=== PATIENT | male | born 1970 | race Caucasian/White ===

== ENCOUNTER 2023-06-24 13:12 | Outpatient (OUT) | payer OTHER, SELFPAY | END 2023-06-24 13:13 | disposition home or self-care (01) | LOC: PST 13:12 | PROVIDERS: PCP Internal Medicine; Visit Provider Surgery | DX: Z01.818 Encounter for other preprocedural examination (principal); Z12.11 Encounter for screening for malignant neoplasm of colon ==

== ENCOUNTER 2023-07-01 07:40 | Day surgery (SDC) | payer OTHER, SELFPAY ==
[2023-07-01 08:07] VITALS: BP 134/94; PULSE 84; RESP 16; TEMP 36.9; O2SAT 96; BMI 23.3
[2023-07-01] MEDS: LACTATED RINGER'S SOLUTION 1,000 ML 50 ML IV (08:18)
--- NOTE | 2023-07-01 08:43 | PM.GSPRC ---
Date of procedure: 07/01/23 Indications for Procedure: screening for cancer Pre-op diagnosis: screening for cancer Post-op diagnosis: other (colon polyp 5 mm sigmoid colon) Procedure: colonoscopy with hot snare colon polyp 5 mm sigmoid colon Findings: colon polyp Anesthesia: MAC Surgeon: Jacoby Gallego Procedure Summary: PROCEDURE: The patient was taken to the Endoscopy Suite, placed in the left lateral recumbent position, given IV sedation as above. A rectal digital exam was performed. The sphincter tone was found to be normal. No rectal masses were appreciated. prosttate was smooth nonenlarged without nodules.The Olympus video colonoscope was advanced under direct visualization to the rectum, sigmoid colon, descending colon, transverse colon and ascending colon to the ileocecal valve. The underside of the valve was seen. appendiceal lumen was visualized. The scope was slowly withdrawn with air being desufflated as it was withdrawn. No gross tumors or diverticula were seen.there was a small polyp in the sigmoid colon which was hot snared and retrieved. Prep was good. The patient tolerated the procedure well and went to the Recovery Area in satisfactory condition. recommend patient have surveillance colonoscopy in five years depending on pathology. I also recommend patient use a bulk laxative on a regular basis [id number]. Estimated blood loss (mL): 1 Specimens: sigmoid colon polyp Complications: No Condition: stable Disposition: PACU
[2023-07-01 11:21] VITALS: BP 114/65; PULSE 70; RESP 17; TEMP 36.7; O2SAT 99
[2023-07-01 11:35] VITALS: BP 116/80; PULSE 72; RESP 16; O2SAT 99
[2023-07-01 11:52] VITALS: BP 144/91; PULSE 78; RESP 16; O2SAT 97
== END 2023-07-01 11:52 | disposition home or self-care (01) ==
PROVIDERS: PCP Internal Medicine; Visit Provider Surgery
PROC: (CPT 45385; principal; 2023-07-01 09:00)
DX: Z12.11 Encounter for screening for malignant neoplasm of colon (principal); D12.5 Benign neoplasm of sigmoid colon; N52.9 Male erectile dysfunction, unspecified; M54.50 Low back pain, unspecified; M54.2 Cervicalgia; K58.2 Mixed irritable bowel syndrome; J45.40 Moderate persistent asthma, uncomplicated; I10 Essential (primary) hypertension; Z87.442 Personal history of urinary calculi; F41.8 Other specified anxiety disorders; F32.A Depression, unspecified
CPT/HCPCS: 45385; 88305; J2704

== ENCOUNTER 2023-09-04 15:31 | Outpatient (OUT) | payer OTHER, SELFPAY ==
[2023-09-04 16:07] LABS: Basophils Absolute Auto 0.1 10^3/uL (0.0-0.1); Basophils Percent Auto 1.1 % (0.2-2.0); Eosinophils Absolute Auto 0.4 10^3/uL (0.0-0.7); Eosinophils Percent Auto 5.2 % (0.9-7.0); Hematocrit 49.1 % (42.0-54.0); Immature Granulocytes Abs Auto 0.02 10^3/uL (0.00-0.03); Immature Granulocytes Pct Auto 0.2 % (0.0-0.5); Lymphocytes Absolute Auto 3.6 10^3/uL (1.2-3.8); Lymphocytes Percent Auto 44.6 % (20.5-60.0); Mean Corpuscular HGB Conc 34.6 g/dL (29.9-35.2); Mean Corpuscular Hemoglobin 32.9 pg (25.9-34.0); Mean Corpuscular Volume 95.2 fL (80.0-94.0); Mean Platelet Volume 9.8 fL (9.5-13.5); Monocytes Absolute Auto 0.6 10^3/uL (0.3-0.8); Monocytes Percent Auto 6.9 % (1.7-12.0); Neutrophils Absolute Auto 3.4 10^3/uL (1.4-6.5); Platelet Count 374 10^3/uL (150-450); Red Blood Count 5.16 10^6/uL (4.70-6.10); Red Cell Distribution Width 11.6 % (11.0-15.0); White Blood Count 8.1 10^3/uL (4.0-11.0)
[2023-09-04 16:20] LABS: Alanine Aminotransferase 26 U/L (16-63); Albumin Globulin Ratio 1.2; Albumin Level 3.8 g/dL (3.4-5.0); Alkaline Phosphatase 77 U/L (46-116); Anion Gap 11.2; Aspartate Amino Transferase 16 U/L (15-37); BUN Creatinine Ratio 18.1; Bilirubin Total 0.3 mg/dL (0.2-1.0); Calcium 9.4 mg/dL (8.5-10.1); Carbon Dioxide 28.8 mmol/L (21.0-32.0); Chloride 107 mmol/L (98-107); Estimated GFR (African America >60 (>=60); Estimated GFR (Non-African Ame 59 (>=60); Globulin 3.3 g/dL; Glucose 99 mg/dL (74-106); Sodium 143 mmol/L (136-145); Total Protein 7.1 g/dL (6.4-8.2); Troponin I High Sensitivity 5.4 pg/mL (4.0-76.1)
== END 2023-09-04 15:32 | disposition home or self-care (01) ==
PROVIDERS: PCP Internal Medicine; Visit Provider Internal Medicine
DX: R00.2 Palpitations (principal); I10 Essential (primary) hypertension; R07.89 Other chest pain
CPT/HCPCS: 36415; 80053; 83880; 84443; 84484; 85025

== ENCOUNTER 2023-09-10 09:13 | Outpatient (OUT) | payer OTHER, SELFPAY ==
--- NOTE | 2023-09-10 | ECG_ITS ---
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
--- OUTSIDE RECORDS SUMMARY | 2023-09-10 09:16 | XMS_ITS | CCD ---
Author Name Unknown Address [address] [place] [address] Organization [facility] Care Team Providers Care Oxidized Finish Plater Name Role Phone LESLY ZUNIGA Primary Care Physician TIM WEAVER Admitting Unavailable TIM WEAVER Attending Unavailable SHAIKH Nenita GRANT Primary Care Unavailable TIM WEAVER Consulting Unavailable HERSON MAGANA Consulting Unavailable ARIAS ., DR DURANT Admitting Unavailable ARIAS ., DR DURANT Attending Unavailable SHAIKH Nenita GRANT Primary Care Unavailable ARIAS ., DR DURANT Consulting Unavailable NAYE SIMMONS Consulting Unavailable CATARINO II, KURTIS Consulting Unavailable LISA BECKHAM Primary Care Physician [phone] Delfino ARIAS Attending Unavailable LESLY ZUNIGA Attending Unavailable ESTELITA, Delfino Nation Attending Unavailable ESTELITA, Delfino Nation Attending Unavailable ESTELITA, Delfino Nation Admitting Unavailable ARIAS, Delfino Nation Attending Unavailable ARIAS, Delfino Nation Attending Unavailable ARIAS, Delfino Nation Attending Unavailable Allergies Allergy Classification Reported Allergen(s) Allergy Type Date of Onset Reaction(s) Facility (1 source) No Known Medication Allergies; Translations: [No Known Medication Allergies] Propensity to adverse reactions (disorder) [facility] Repository Medications Current Medications Medication Drug Class(es) Dates Sig (Normalized) Sig (Original) docusate sodium 100 mg oral capsule (3 sources) Start: 02-22-2021 take 1 capsule by mouth twice daily as needed for constipation Colace 100 mg Cap 100 mg = 1 cap(s), Oral, BID, PRN for constipation, # 20 cap(s), Refills(s) 0 Start Date: 02/22/21 Status: Ordered Ventolin HFA 90 mcg/inh Aerosol (3 sources) Start: 02-22-2021 Ventolin HFA 90 mcg/inh Aerosol Refill(s) 0 Start Date: 02/22/21 Status: Ordered zolpidem tartrate 10 mg oral tablet (3 sources) gamma-Aminobutyri c Acid-ergic Agonist Start: 02-22-2021 take 1 tablet by mouth once daily at bedtime as needed for sleep zolpidem 10 mg oral tablet 10 mg = 1 tab(s), Oral, Once a day (at bedtime), PRN for sleep, Refills(s) 0 Start Date: 02/22/21 Status: Ordered Problems Problem Classification Problem Date Documented Da te Episodic/Chronic Abdominal pain (3 sources) Unspecified abdominal pain; Translations: [UNSPECIFIED ABDOMINAL PAIN] Onset: 11-16-2022 Episodic Anxiety disorders (4 sources) Anxiety; Translations: [Anxiety disorder, unspecified] Onset: 11-24-2022 02-21-2021 Chronic Asthma (4 sources) Asthma; Translations: [Unspecified asthma, uncomplicated] Onset: 11-24-2022 02-21-2021 Chronic Calculus of urinary tract (8 sources) History of calculus of kidney; Translations: [Ureteric stone] Onset: 11-18-2022 05-13-2021 Episodic Essential hypertension (4 sources) Hypertensive disorder; Translations: [Essential (primary) hypertension] Onset: 11-24-2022 02-21-2021 Chronic Genitourinary symptoms and ill-defined conditions (1 source) Blood in urine; Translations: [Gross hematuria] Onset: 11-26-2022 Episodic Hyperplasia of prostate (5 sources) Benign prostatic hypertrophy with outflow obstruction; Translations: [Benign prostatic hyperplasia with lower urinary tract symptoms] Onset: 11-19-2022 Chronic Mood disorders (3 sources) Depressive disorder 02-21-2021 Chronic Mood disorders (1 source) Mood disorders; Translations: [DEPRESSION UNSPECIFIED] Onset: 11-24-2022 Other aftercare (1 source) Other shelter (current) drug therapy; Translations: [OTH NURSE ANESTHESIA PROGRAM DIRECTOR CURRENT DRUG THERAPY] Onset: 11-24-2022 Episodic Other diseases of kidney and ureters (1 source) Urinary tract obstruction; Translations: [Hydronephrosis with renal and ureteral calculous obstruction] Onset: 11-19-2022 Episodic Other diseases of kidney and ureters (3 sources) Hydronephrosis 11-19-2022 Episodic Other diseases of kidney and ureters (4 sources) Hydronephrosis with renal and ureteral calculous obstruction; Translations: [HYDRONPHROS RENL AND URETRL CALCUL OBST] Onset: 11-20-2022 Episodic Other gastrointestinal disorders (3 sources) Constipation 02-21-2021 Episodic Other male genital disorders (3 sources) Impotence 02-21-2021 Chronic Other male genital disorders (3 sources) 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 Other male genital disorders (1 source) Male erectile dysfunction, unspecified; Translations: [MALE ERECTILE DYSFUNCTION UNS] Onset: 11-24-2022 Chronic Other male genital disorders (1 source) Induration penis plastica; Translations: [INDURATION PENIS PLASTICA] Onset: 11-24-2022 Chronic Residual codes; unclassified (3 sources) Insomnia 02-21-2021 Episodic Residual codes; unclassified (1 source) Insomnia, unspecified; Translations: [INSOMNIA UNSPECIFIED] Onset: 11-24-2022 Episodic Results Test Name Value Interpretation Reference Range Facility Operative Reporton Operative Report [id number] #1.00CD:[address] [facility] Coding Summary.on 12-04-2022 Coding Summary. CD:[id number] Ww+PGhlYWQ+WV7FALFoT 01xmOLcpU1nM9SOGCvCQ ywgQVBQTElOSyIgbmFtZ F4wzNBlPIKq IC8+UA8mXBIhHjfiiEYs a3B0hMT4M03eex7nPZwj jJN4FKZgPeBaxwuiq2aj wCx4BOpvHpqtGeXt PJQbaA63SXM4tC87Ao43 iIHwhIGpx2hxkWc6LwLb STMcGQY7hGvcVRurx6Vh OQEsG98ycXHbb2Y3 IGNvbGxhcHNlOyBlbXB0 wP8mIXpqddvcb3xnqaqt Pry0nc53bRUtm5T0dQB5 I6SujuR9DRJegBXg FdqtfBGQvU1bmnznm4ca byznMnCcSOMwXBq2GCt7 GBBbjQzuPgKeNG78RCZ5 BTZeeiLfB8WlMITa aPihGeW6j9H5Vg6DF5RJ XfanQ4RYTQHTIUmqhSR+ XD64qe88Q7KeKjsmApd5 WMGqDIK9xVS5sP5j TGDiGDapa9J7bVM9T3Xr omMgem2iz8zhJKOhFWmv S60fqTKxg2J8GJXxuKD3 WZVlpSzaTbUvtW80 Oyc+MFToeWplr5KkWicj h5vel2rfbVr3LtkbFGBm osMejAhkZTS4p2KfMh4g VJIabBM0rML6bQ6s QfQwBkA7GTccK634VtXh jYMmAapzG29hQ6GvlZQ+ OKYgFym9YUQsgPsaBY5n X8OhSFCkiiusdRDb vUfjXL4uHIBgzkarPGVo rU8eCACzE8e3ZePvVlC9 LPiuH2FnUSDohlqeTh53 mO1zOuXmApH6RBxw X8RitqD7ALZsmNKcQFvn JJT3W14sg4P2ZNIzRISt KQF0jPA1bW5nwQbzlckx bGVmdDsgdmVydGlj ICqqUMcuC729MBMqxRci PkNvZGluZyBEYXRlOiAg MDMvMjMvMjAyMzwvdGQ+ RPPdQRH6nMdaPEAv tADdLLjjKb6mvQqcfWwq QZ5fHXOmreghGOHqtP6d OZDfdOMksFizBK3mDIGu gjpof915CbYeSYI0 IYYwyHEtI4LwaP4hTaKx JDTiNWRgK2OpyQPaCAud J406SIbgWxQ0ZRDwglLr X1GzRIRbmBzpKaJ9 y2C6Rn5Ik4GykhsrR0Zr aRIrRiIiXdvjCAx2Y8Xg PjwvdHI+FR95RIVxVZ19 YEp8XHN7wYtjSHxs WWMiJ4PozI3gEmNeXKTt ZGRkOyc+PHRhYmxlIHdp ZHRoPScxMDAlJyBzdHls RE5xYu5iAOMuHODy lSoqoBFwSuLxx9htUNNf TVnsZW8vvVhgW5CkmFG8 EQKfc5k7Lv12Y66sQ5Gp dXA+JWXvlKR7nZU1 tN0cBeGbNhE1TWbsE706 UwSywYFkApkxb7cph1bs nPx4YcC1MDJtuoPzoQmy DZJ6d3LwPg32R66m IHdpZHRoPSIxNSUiIHZh mXqydj3ouM8pKc1+PGNv yOT2xJK9wC2mWgJmIhW6 UJiwF941FyCnoTQw Yscle6xnp3mrgCk3LoLe ORVncaMvnWirFDO0k4Fj Wn70O2UryKlmr6DvDmj1 ff46wILcz2P5kAX5 X5MiSQOznqhdkBTbvQdv CE3mLHNajdklOOJyxF0c VRThN0g3TcIyPsK7WCfb F8GkclS0SPMqwZPo PKNoiJVVdL5dennwe8yc bkldOgZeUIHgCYw1ILc1 EWOzvAuhLtVuKYU4JsG7 JBC4oSHkfU4tcKlo qgcmiT3eGet+DYU2mFQq xKGGQY9uRyswaGH+PHRk FJX9hIshBEqmKJMzbA8p CECcG2n6QcSeAbI0 JAikT2CspmU5RNUxyEEp CZIviZNHrU5kondwv1tr kjonXyWkOVSgPRe4UMa0 LWFsaWduOiBsZWZ0 PoI9ICC2tYHurS6lmDvf kdglwO8iFhy+QmlydGgg VGI3EZe2N1XqXry1MEJc qYlzDD7iwOJzTWjm Hb5smZinkUwzMZ6kKHXc yedmh935NaVwd1ifMJYr aYPkIBhgKKA3J03ly7N3 WACuGWSmQPU1wRQ2 xZ4mxEgehfchkXHpsGko djBycJnkIZfaHNdsS301 BTRkcNeyJhIcMXj4J1Hd Jyr5CAHzsJnsRJ6n yUIlMFrcZi0usNwhhKhy AG1tCWXlnzreh507OcKd w0rvFGJkvJFiFRxiNIA4 E10uh7J9HVYmBLOe LVS2hME9zB7xgTbrshwn bGVmdDsgdmVydGljYWwt BTwrP927GGPpzIseRuUj gFb8Y3UaLsd5VQYo bGcnDH7ypWYvNQeyYj3l kWwepHlxYO9sTPRukfro j010AdCvi3ogUPJhqHRx YRlyFVQ6X74qf5M1 BBPoZVTsDOC9uHX2zQ8j bGlnbjogbGVmdDsgdmVy vAfwJOywRKjgQ109VATo cDsnPlBhdGllbnQg KGnyUCh6J5PvQlmglLD+ HC77WVFlAB16cBAyjWFe c6dmkWc6AzRpPNJtYXH4 iTxfPRylq7MrCQIt C01gpJJtk5D2FGIdtZee wSReJcZoeAV4tR0oNCzb xycua9ynqzzkNmzwt5qz bc86jF20O33dEWqr ZHRoPSIzMCUiIHZhbGln dx9czF7aHn3+PGNvbCB3 oGQ8fO7iFLXeBuX8BLeu L876EeSizTYhCwla o8pck5wymGz3GfX3LSPg ywDfxCkhXZJ8d5WzUs43 L66nLQemSEPoHHIdUZVl CFLfcZhafg0aeK7x Ii8+RYQcxXU7oAH5wL2z KaKdViE4SRfwX671MjXt dTNuXuwdM99rX8ZvfLD+ IGLxUko8KKFpjMjw PQ3vkFKlTHfsQp0wRXO4 FuMeVnRqXYgmB5ZpPNGc hiqripdcjPU1DROrIQXh tL58Xe3isXlbLDCq eBKVnP5mhjugd1eqnyto LyWgAEDlMJm2WWa3XOUk xNreOkDuVWH7IsO9IOO3 cQPuxC0flCcagkdt jG4rH9LnSLDksyrjLq94 uB2fLjLgUpJ5DJriNor+ EyFARXSHX1CrCCpFMNJU PR13HU92kVWbq2X0 kBP2M6GgMOYlwcvwizim yOB1CVXrEHYutL87pWPu AFjmBk3po8Z7e448KBQy VJEljI25Ti2ctKop XDZklPNArT0leantc2gx nzgaOgZpDRKmKSj8FIt1 UYTdbCkzXtOiVAD9KvH2 KOT6pZRqdD7gdWpg iizyxI6nIdv+MDMvMTAv JRg0NJidrKA+PHRkIHN0 xJitLIwdWOGqoY1kILJo Q9x4EuQkByZ5SQap C1QyMKCquchfLg80hS6h EiEzFiW4RHewH3EekeB9 SXFvuNLfBTkyGUC6G89b q9R9CILsYZNuFWB7 sBG2rV9vdXnegmaxsWOu dDsgdmVydGljYWwtYWxp O415KRNbzWieNmR2EXnn HBCgIC27VR88jKPw g7D8gHX7U2YnPASeikqu trsyePM6IRRwMKJwcP53 gOHrLMqrSt7zl6Z8x876 MFQuLAFxxM55Rt2i xFgxTAKygDGGcA6gscyl a9fchorgGaGgYJWjSIy4 JBu1XZAcdZwlNfIcSES7 IfW5NKY0rJRcgO4t hYlwiruoyN3rFcl+TWFs ZTwvdGQ+STDeIKO0uPao OKzoCBEgrZ2iGOLwI1r6 VoFmOkK9BZzeO5Ub RBBvjhduIu40tO5sZjEv DkV5LRmvD9WwcnT5SWWw uERpBDaqOOU6S52rf3I2 SVQaOXOfNFF6cBZ3 mL3drBocghwopWUoyOni wjZkgElvNJieGYtmZ422 AWOnkDffQuomNfUFpb1k YL2yXkzxuYF+PC90 yt64U3FdBmlhDmh0SNPi RSR8mJL6hZ9kOPPtHDpd h3N0bSY7V0WpqmVdca5i n8hhXMNiZBpxC73z vZAlv7A3JNKdaIQ0ZMPe iVwdZxSseK94Veb+PGNv iEmmx2RiYcwzq0plg9xf eJs5KfCmXUTwmtFi kYiuJQB5y3LdKc05Q86j IHdpZHRoPSIzMCUiIHZh hMzzmw7giS6pZa6+PGNv aAF2mPR4dO3mIvMo WuG2ETeuU025KuQurIDa Dvjwx1fkq5dkgPq4WkWm VKCzpgLcvVgrRLC1b5Sr Ki40U7WbeEdqq2Qk Kjr9ni77wIAui8L0fKZ8 W2DgSDUpunebuYDxnVbq QS3pARXnustxUWBzvS7c YWFeF1f2BvRbIiY3 EGcvC2GftzW9QPYmkGOq YEHqoREDmI3fipqgt8jd sdrbHyIfXHBaXVe8FZy8 LWFsaWduOiBsZWZ0 WdX5NOE5mWFkyL1tjBxq vbmdrX6mWpp+OAt8o9ie iBWnLV1dpSQ8GO38UQ81 lAZuy6R2bJK0S2Ol PWOvdwetxxiccXQ4FNQd KXFftW22Nf7ozCgeDn5x TXBpNJS1ITNxwVYhI5Cv fF7xQhDbRHKjUOXp I4AxbRPpMCsbB980YEsx GhU9KBQtlzEgO3MoMQKb hAsbYtT8l2F4Yk8XAG86 JO14MP25iZDsm9B7 fXZ1M8FgCYLhfwafskzs hHM1WPIkZWUdtB05Ex1g vHibWe6aBECvYCP7ARQe cZYzD1RyqC7hHnWh VWCuEBMsM9XtbPLgLVnz C417JBwrPvW8XMTrdlDc S1AiNGWolRvfZfQ3h5D4 Vb7TQs61RT85PX95 cYQeu1U4kWS8A4EvRWKx wxrpvrabkSI3DXEyCZSx lN85Cq9imLwoWt7pLUXs UKI2BOPetXRcF0Cs qW1wUbCuGAImGHGjA5Sb gPOpEYarZ628XZwkTiT0 KEOameDsL9OzYMLnvDkw KfJ3h8P2Be6CDGie zla4T3PfFesaqHE+PC90 KMHtIH77zZFtfHHpz6fg zGx5GmViVIXbBBV7vTkz PGcfq2MpOHLiA95h wBUxr4I4 (more content not included)... Normal [facility] Consent for Procedure/Surger yon 12-03-2022 Consent for Procedure/Surgery [id number]# 1.00CD:[address] [facility] C Urineon 11-29-2022 Bacteria identified Cx Nom (U) Microbiology PROCEDURE: Urine Culture [R1] SOURCE: U Random BODY SITE: COLLECTED DATE/TIME: 11/26/2022 15:48 EDT RECEIVED DATE/TIME: 11/27/2022 11:45 EDT START DATE/TIME: 11/27/2022 11:45 EDT FREE TEXT SOURCE: ESTELITA DAMON, Delfino ARIAS MD, Delfino Nation FINAL REPORTS Final Report [] Verified Date/Time: 11/29/2022 07:16 EDT No growth at 2 days. Performing Locations R1: This test was performed at: [facility], [address] [place] [address], [facility]- , , Normal [facility] Comment on above: Performed By: #### [id number] ####[facility] [address] [place] [address] Ambulatory Visit Summaryon 0 11-26-2022 Ambulatory Visit Summary GUZMAN REEVES :1970 Visit Date:11/26/2022 Ambulatory Visit Instructions Your Diagnosis Gross hematuria Tests Performed Urnls Dip Stick Auto w/o Microscopy POC 47099 Your Care Team Attending Physician - LESLY ZUNIGA MD Primary Care Physician - LISA BECKHAM DO This Is Your Medications List albuterol (Ventolin HFA 90 mcg/inh Aerosol) docusate (Colace 100 mg Cap) zolpidem (zolpidem 10 mg oral tablet) Procedures Performed Colonoscopy, Vasectomy. What to do next Scheduled Follow-Up Appointments Thursday 3:45 PM EDT With: ESTELITA DAMON, Delfino Nation Where: [facility] CALCULI, URINARYon 3 2,8 Dihydroxyadenine Normal [facility] Comment on above: Performed By: #### C ALCULI #### [facility] [address] [address] [address] Kaden James Ammonium Acid Urate Normal [facility] Comment on above: Performed By: #### C ALCULI #### [facility] [address] [address] [address] Kaden James Bilirubin Ql (U) Normal [facility] Comment on above: Performed By: #### C ALCULI #### [facility] [address] [address] [address] Kaden James Ca Oxalate Dihydrate Normal [facility] Comment on above: Performed By: #### C ALCULI #### [facility] [address] [address] [address] Kaden James CaHPO4 (Brushite) [facility] Comment on above: Performed By: #### C ALCULI #### [facility] [address] [address] [address] Kaden James Calcium Bilirubinate [facility] Comment on above: Performed By: #### C ALCULI #### [facility] [address] [address] [address] Kaden James Calcium Carbonate [facility] Comment on above: Performed By: #### C ALCULI #### [facility] [address] [address] [address] Kaden James Calcium Oxalate Monohydrate 100 % [facility] Comment on above: Performed By: #### C ALCULI #### [facility] [address] [address] [address] Kaden James Calcium Palmitate [facility] Comment on above: Performed By: #### C ALCULI #### [facility] [address] [address] [address] Kaden James Calcium Phosphate [facility] Comment on above: Performed By: #### C ALCULI #### [facility] [address] [address] [address] Kaden James Calcium Stearate [facility] Comment on above: Performed By: #### C ALCULI #### [facility] [address] [address] [address] Kaden James Carbonate Apatite [facility] Comment on above: Performed By: #### C ALCULI #### [facility] [address] [address] [address] Kaden James Cellular Material [facility] Comment on above: Performed By: #### C ALCULI #### [facility] [address] [address] [address] Kaden James Cholesterol [facility] Comment on above: Performed By: #### C ALCULI #### [facility] [address] [place] [address] Dr. Kaden James Color (U) Brown [facility] Comment on above: Performed By: #### C ALCULI #### [facility] [address] [address] [address] Kaden James Comment [facility] Comment on above: Performed By: #### C ALCULI #### [facility] [address] [place] [address] Dr. Kaden James Comment Comment [facility] Comment on above: Result Comment: Calc ulus received wet. Wet calculi must be dried before analysis, which delays reporting of results. Leaving calculi wet (such as water, saline, blood, urine) may lead to changes in composition. Performed By: #### C ALCULI #### [facility] [address] [place] [address] Dr. Kaden James Comment: Comment [facility] Comment on above: Result Comment: Enid marroquin questions regarding Calculi Analysis contact [facility] at: [phone]. Performed By: #### C ALCULI #### [facility] [address] [place] [address] Dr. Kaden James Composition Comment [facility] Comment on above: Result Comment: Perc entage (Represents the % composition) Performed By: #### C ALCULI #### [facility] [address] [place] [address] Dr. Kaden James Cystine [facility] Comment on above: Performed By: #### C ALCULI #### [facility] [address] [place] [address] Dr. Kaden James Disclaimer: Comment [facility] Comment on above: Result Comment: This test was developed and its performance characteristics determined by [facility]. It has not been cleared or approved by the Food and Drug Administration. Performed By: #### C ALCULI #### [facility] [address] [place] [address] Dr. Kaden James Dried Blood [facility] Comment on above: Performed By: #### C ALCULI #### [facility] [address] [address] [address] Kaden James Drug or Metabolite Normal [facility] Comment on above: Performed By: #### C ALCULI #### [facility] [address] [address] [address] Kaden James Hydroxyapatite Normal [facility] Comment on above: Performed By: #### C ALCULI #### [facility] [address] [address] [address] Kaden James Mg NH4 PO4 (Struvite) [facility] Comment on above: Performed By: #### C ALCULI #### [facility] [address] [address] [address] Kaden James MgHPO4 (Newberyite) Normal [facility] Comment on above: Performed By: #### C ALCULI #### [facility] [address] [place] [address] Dr. Kaden James Other component(s) Normal [facility] Comment on above: Performed By: #### C ALCULI #### [facility] [address] [address] [address] Kaden James PDF . [facility] Comment on above: Performed By: #### C ALCULI #### [facility] [address] [place] [address] Dr. Kaden James Photo Comment [facility] Comment on above: Result Comment: Phot ograph will follow under a separate cover Performed By: #### C ALCULI #### [facility] [address] [place] [address] Dr. Kaden James Please note: Comment [facility] Comment on above: Result Comment: Calc renetta report will follow via computer, mail or transition lead delivery. Performed By: #### C ALCULI #### [facility] [address] [place] [address] Dr. Kaden James Size 1x1 [facility] Comment on above: Result Comment: Mult iple pieces received. Dimensions of the largest piece reported. Performed By: #### C ALCULI #### [facility] [address] [address] [address] Kaden James Sodium Acid Urate Normal [facility] Comment on above: Performed By: #### C ALCULI #### [facility] [address] [address] [address] Kaden James Source Comment [facility] Comment on above: Result Comment: Righ t Ureter Performed By: #### C ALCULI #### [facility] [address] [address] [address] Kaden James Triamterene [facility] Comment on above: Performed By: #### C ALCULI #### [facility] [address] [address] [address] Kaden James Uric Acid [facility] Comment on above: Performed By: #### C ALCULI #### [facility] [address] [address] [address] Kaden James Uric Acid Dihydrate [facility] Comment on above: Performed By: #### C ALCULI #### [facility] [address] [address] [address] Kaden James Weight 22 mg [facility] Comment on above: Performed By: #### C ALCULI #### [facility] [address] [place] [address] Dr. Kaden James Xanthine [facility] Comment on above: Performed By: #### C ALCULI #### [facility] [address] [address] [address] Kaden James Operative Reporton Operative Report [id number] #1.00CD:[address] [facility] RAD - CT Reporton 11-24-[address]22 RAD - CT Report [id number] #1.00CD:[address] [facility] RAD - MISCon 11-24-2022 RAD - MISC [id number] #1.00CD:[address] [facility] Consent for Procedure/Surger yon 11-20-2022 Consent for Procedure/Surgery [id number] #1.00CD:[address] [facility] Screenson 11-20-2022 Screens [id number] #1.00CD:127 [facility] Patient Educationon 11-20-19 Patient Education Urology Dietary Guidelines to Help Prevent Kidney Stones Kidney stones are deposits of minerals and salts that form inside your kidneys. Your risk of developing kidney stones may be greater depending on your diet, your lifestyle, the medicines you take, and whether you have certain medical conditions. Most people can reduce their chances of developing kidney stones by following the instructions below. Depending on your overall health and the type of kidney stones you tend to develop, your dietitian may give you more specific instructions. What are tips for following this plan? Reading food labels ? Choose foods with no salt added or low-salt labels. Limit your sodium intake to less than 1500 mg per day. ? Choose foods with calcium for each meal and snack. Try to eat about 300 mg of calcium at each meal. Foods that contain 200?500 mg of calcium per serving include: ? 8 oz (237 ml) of milk, fortified nondairy milk, and fortified fruit juice. ? 8 oz (237 ml) of kefir, yogurt, and soy yogurt. ? 4 oz (118 ml) of tofu. ? 1 oz of cheese. ? 1 cup (300 g) of dried figs. ? 1 cup (91 g) of cooked broccoli. ? 1?3 oz can of sardines or mackerel. ? Most people need 1000 to 1500 mg of calcium each day. Talk to your dietitian about how much calcium is recommended for you. Shopping ? Buy plenty of fresh fruits and vegetables. Most people do not need to avoid fruits and vegetables, even if they contain nutrients that may contribute to kidney stones. ? When shopping for convenience foods, choose: ? Whole pieces of fruit. ? Premade salads with dressing on the side. ? Low-fat fruit and yogurt smoothies. ? Avoid buying frozen meals or prepared deli foods. ? Look for foods with live cultures, such as yogurt and kefir. Cooking ? Do not add salt to food when cooking. Place a salt shaker on the table and allow each person to add his or her own salt to taste. ? Use vegetable protein, such as beans, textured vegetable protein (TVP), or tofu instead of meat in pasta, casseroles, and soups. Meal planning ? Eat less salt, if told by your dietitian. To do this: ? Avoid eating processed or premade food. ? Avoid eating fast food. ? Eat less animal protein, including cheese, meat, poultry, or fish, if told by your dietitian. To do this: ? Limit the number of times you have meat, poultry, fish, or cheese each week. Eat a diet free of meat at least 2 days a week. ? Eat only one serving each day of meat, poultry, fish, or seafood. ? When you prepare animal protein, cut pieces into small portion sizes. For most meat and fish, one serving is about the size of one deck of cards. ? Eat at least 5 servings of fresh fruits and vegetables each day. To do this: ? Keep fruits and vegetables on hand for snacks. ? Eat 1 piece of fruit or a handful of berries with breakfast. ? Have a salad and fruit at lunch. ? Have two kinds of vegetables at dinner. ? Limit foods that are high in a substance called oxalate. These include: ? Spinach. ? Rhubarb. ? Beets. ? Potato chips and vietnamese fries. ? Nuts. ? If you regularly take a diuretic medicine, make sure to eat at least 1?2 fruits or vegetables high in potassium each day. These include: ? Avocado. ? Banana. ? [place], prune, carrot, or tomato juice. ? Baked potato. ? Cabbage. ? Beans and split peas. General instructions ? Drink enough fluid to keep your urine clear or pale yellow. This is the most important thing you can do. ? Talk to your health care provider and dietitian about taking daily supplements. Depending on your health and the cause of your kidney stones, you may be advised: ? Not to take supplements with vitamin C. ? To take a calcium supplement. ? To take a daily probiotic supplement. ? To take other supplements such as magnesium, fish oil, or vitamin B6. ? Take all medicines and supplements as told by your health care provider. ? Limit alcohol intake to no more than 1 drink a day for non women and 2 drinks a day for men. One drink equals 12 oz of beer, 5 oz of wine, or 1? oz of hard liquor. ? Lose weight if told by your health care provider. Work with your dietitian to find strategies and an eating plan that works best for you. What foods are not recommended? Limit your intake of the following foods, or as told by your dietitian. Talk to your dietitian about specific foods you should avoid based on the type of kidney stones and your overall health. Grains Breads. Bagels. Rolls. Baked goods. Salted crackers. Cereal. Pasta. Vegetables Spinach. Rhubarb. Beets. Canned vegetables. Pickles. Olives. Meats and other protein foods Nuts. Nut butters. Large portions of meat, poultry, or fish. Salted or cured meats. Deli meats. Hot dogs. Sausages. Dairy Cheese. Beverages Regular soft drinks. Regular vegetable juice. Seasonings and other foods Seasoning blends with salt. Salad dr (more content not included)... Normal [facility] Urology Office/Clinic Noteon 11-19-2022 Urology Office/Clinic Note Chief Complaint Follow up to [facility] HPI Staff Pt is here today for follow up to [facility] due to right flank and abdominal pain on 11/16/22. CT scan done 11/16/22 shows right mid ureter 5mm stone causing mild right hydronephrosis. Previous DX: BPH with urinary obstruction, ED, history of kidney stones, Peyronie disease. IPSS SCORE is 12. Dysuria: yes to pain and burning Incomplete bladder emptying: slow to empty Hematuria: denies visible blood, UA today shows TRACE INTACT Frequency: every hour during the night Urgency: denies Nocturia: once a night Stream: hesitant stream, weak stream Leaking: denies Post void dripping: yes Wearing pads/ Depends: denies Urge incontinence: denies Stress incontinence: denies Incontinence without Sensory Awareness: denies Abdominal pain: denies Flank pain: Rt sided flank pain Sexual complaints: currently inactive History of Present Illness Tests reviewed: reviewed UA, ER records. I have reviewed the previous health record information and history for this patient from Dr. Arias. I have reviewed and verified the staff HPI to be accurate for this encounter. There have been no associated fever, chills, flank pain, or blood in the urine. Denies any urinary infections since last encounter. Review of Systems PHQ Score Initial Depression Screen Score: 0 ROS - Provider Constitutional: denies weight loss, denies hot flashes. Eyes: denies eye problems. Gastrointestinal: denies nausea, denies vomiting. Cardiovascular: denies chest pain or angina. Integumentary: no dryness Musculoskeletal: denies musculoskeletal symptoms. ENMT: denies otolaryngeal symptoms. Respiratory: no shortness of breath. Heme/Lymph: denies easy bleeding tendency, denies easy bruising tendency. Psychiatric: no confusion, no anxiety. Genitourinary: See HPI. Physical Exam Vitals & Measurements HR: 69(Peripheral) BP: 150/97 HT: 65 in HT: 165 cm WT: 71.9 kg WT: 158.18 lb BMI: 26.41 General Appearance: alert, no distress, well nourished, well developed male. Genitourinary: normal scrotum, normal testes, normal urethra, normal epididymis, normal vas deferens/spermatic cord. Flank Pain: none. Bladder: nonpalpable. Assessment/Plan 1. Ureteral stone with hydronephrosis (N13.2: Hydronephrosis with renal and ureteral calculous obstruction) Follow up to [facility] ER visit on 11/16/22 due to right flank and abdominal pain. CT AP wo con done 11/16/22 shows right mid ureter 5 mm stone causing mild right hydronephrosis. 11/16/22: BUN 13. Crea 1.48. eGFR 50. Vomiting due to pain 3 nights in a row. Has passed stones on his own in the past. Right sided flank pain, radiates to testicle. Educated pt on rate of stone passage given stone size. Discussed either giving pt time to pass the stone and if it remains next week then to proceed with surgical intervention or proceeding with surgical intervention tomorrow. Pt would like to have an x-ray to see if the stone moved. Discussed surgical intervention options including ESWL if visible on x-ray (less invasive, lower stone free rate) and ureteroscopy/laser litho with possible stent placement (more invasive, higher stone free rate). Risks and benefits of each discussed. Will schedule tentative Laser Litho pending x-ray. The procedural risks, benefits, details, and treatment alternatives have been discussed with the patient. These include bleeding, infection, inability to break or retrieve all of the stone, injury to the ureter (the tube which connects the kidney to the bladder), injury to the kidney scarring of the ureter, and need for repeat procedures, among others. Full informed consent has been obtained. Will order General anesthesia. 2. BPH with urinary obstruction (N40.1: Benign prostatic hyperplasia with lower urinary tract symptoms) UA today negative for blood and infection. IPSS 12. Follow-up With When Contact Information Delfino ARIAS MD, URL [facility] [address], [place] [address]- Additional Instructions: x-ray, schedule tentative laser litho Patient Education Dietary Guidelines to Help Prevent Kidney Stones I, Jyoti Morales, personally scribed for Dr. Arais on 11/19/2022 14:23:00. . Documentation recorded by the scribe, Jyoti Morales, accurately reflects the services(s) I performed and decisions made by me. Authenticated by Dr. Arisa on 11/19/2022 14:25:50. Problem List/Past Medical History Ongoing Anxiety Asthma BPH with urinary obstruction Constipation Depression Erectile dysfunction History of kidney stones Hypertension Insomnia Peyronie disease Ureteral stone Ureteral stone with hydronephrosis Historical No qualifying data Procedure/Surgical History Colonoscopy, Vasectomy. Medications Colace 100 mg Cap, 100 mg= 1 cap(s), Oral, BID, PRN Ventolin HFA 90 mcg/inh Aerosol zolpidem 10 mg oral tablet, 10 mg= 1 tab(s), Oral, Once a day (at bedti (more content not included)... Normal [facility] Comment on above: Result Comment: Elec tronically Signed By: Delfino ARIAS MD\.br\Date and Time Signed: 11/19/22 14:25 EST\.br\Electronically Co-Signed By: Jyoti Morales\.br\Date and Time Co-Signed: 11/19/22 14:24 EST ED Note-Physicianon 11-19-19 ED Note-Physician [id number] #1.00CD:[address] [facility] CBC AUTO DIFFon 11-16-2022 BASO # 0.1 103/ul Normal 0.0-0.1 [facility] Comment on above: Performed By: #### C BC #### [facility] [address] [address] [address] Kaden James Basophils/100 WBC (Bld) 0.6 % Normal 0.2-2.0 [facility] Comment on above: Performed By: #### C BC #### [facility] [address] [address] [address] Kaden James EO # 0.1 103/ul Normal 0.0-0.7 [facility] Comment on above: Performed By: #### C BC #### [facility] [address] [address] [address] Kaden James Eosinophils/100 WBC (Bld) 1.4 % Normal 0.9-7.0 [facility] Comment on above: Performed By: #### C BC #### [facility] [address] [address] [address] Kaden James Erythrocyte distribution width (RBC) [Ratio] 12.2 % Normal 11.0-15.0 [facility] Comment on above: Performed By: #### C BC #### [facility] [address] [address] [address] Kaden James Hematocrit (Bld) [Volume fraction] 44.6 % Normal 42.0-54.0 [facility] Comment on above: Performed By: #### C BC #### [facility] [address] [address] [address] Kaden James Hemoglobin (Bld) [Mass/Vol] 15.5 g/dL Normal 14.0-18.0 [facility] Comment on above: Performed By: #### C BC #### [facility] [address] [place] [address] Dr. Kaden James IG # 0.03 10e3/ul Normal 0.00-0.03 [facility] Comment on above: Performed By: #### C BC #### [facility] [address] [place] [address] Dr. Kaden James IG % 0.3 % Normal 0.0-0.5 [facility] Comment on above: Performed By: #### C BC #### [facility] [address] [place] [address] Dr. Kaden James LYMPH # 2.6 103/ul Normal 1.2-3.8 [facility] Comment on above: Performed By: #### C BC #### [facility] [address] [place] [address] Dr. Kaden James Lymphocytes/100 WBC (Bld) 25.6 % Normal 20.5-60.0 [facility] Comment on above: Performed By: #### C BC #### [facility] [address] [place] [address] Dr. Kaden James MANUAL DIFF REQ NO Normal [facility] Comment on above: Performed By: #### C BC #### [facility] [address] [place] [address] Dr. Kaden James MCH (RBC) [Entitic mass] 31.9 pg Normal 25.9-34.0 [facility] Comment on above: Performed By: #### C BC #### [facility] [address] [place] [address] Dr. Kaden James MCHC (RBC) [Mass/Vol] 34.8 g/dL Normal 29.9-35.2 [facility] Comment on above: Performed By: #### C BC #### [facility] [address] [place] [address] Dr. Kaden James MCV (RBC) [Entitic vol] 91.8 fL Normal 80.0-94.0 [facility] Comment on above: Performed By: #### C BC #### [facility] [address] [place] [address] Dr. Kaden James MONO # 0.7 103/ul Normal 0.3-0.8 [facility] Comment on above: Performed By: #### C BC #### [facility] [address] [address] [address] Kaden James Monocytes/100 WBC (Bld) 6.8 % Normal 1.7-12.0 [facility] Comment on above: Performed By: #### C BC #### [facility] [address] [address] [address] Kaden James NEUT # 6.6 103/ul Critically high 1.4-6.5 [facility] Comment on above: Performed By: #### C BC #### [facility] [address] [address] [address] Kaden James Neutrophils/100 WBC (Bld) 65.3 % Normal 43.0-75.0 [facility] Comment on above: Performed By: #### C BC #### [facility] [address] [place] [address] Dr. Kaden James Platelet mean volume (Bld) [Entitic vol] 9.2 fL Critically low 9.5-13.5 [facility] Comment on above: Performed By: #### C BC #### [facility] [address] [address] [address] Kaden James PLT 393 103/ul Normal 150-450 [facility] Comment on above: Performed By: #### C BC #### [facility] [address] [place] [address] Dr. Kaden James RBC 4.86 106/ul Normal 4.70-6.10 [facility] Comment on above: Performed By: #### C BC #### [facility] [address] [address] [address] Kaden James WBC 10.1 103/ul Normal 4.0-11.0 [facility] Comment on above: Performed By: #### C BC #### [facility] [address] [place] [address] ABD/PELVIS WO CONon 11-16 CT ABD/PELVIS WO CON EXAM: CT ABD/PELVIS WO CON INDICATION: CALCULUS OF KIDNEY. COMPARISON: None. TECHNIQUE: Multiple contiguous axial CT images of the abdomen and pelvis were obtained without the use of intravenous contrast. Sagittal and coronal reconstructions were performed. Dose reduction techniques were achieved by using: automated exposure control and/or adjustment of mA and /or kV according to patient size and/or use of iterative reconstruction technique. FINDINGS: Evaluation of visceral organs limited by noncontrast technique. LOWER CHEST: Clear lung bases. The heart is normal in size. No pericardial or pleural effusion. ABDOMEN AND PELVIS: Liver: Unremarkable. Biliary System: Normal gallbladder. No biliary ductal dilatation. Pancreas: Unremarkable. Spleen: Unremarkable. Adrenal Glands: Normal. Urinary System: Right mid ureter 5 mm stone causing mild right hydronephrosis. Left renal peripelvic cysts. Normal bladder. Gastrointestinal Tract: Normal caliber bowel. No bowel wall thickening or inflammation. Normal appendix. Reproductive organs: Unremarkable. Vessels: Nonaneurysmal abdominal aorta . Lymph Nodes: No adenopathy. Peritoneum: No ascites or pneumoperitoneum. MUSCULOSKELETAL: Soft tissues: Small fat-containing umbilical hernia. Bones: No acute osseous abnormality or suspicious osseous lesion. IMPRESSION: Obstructing right mid ureter 5 mm stone causing mild right hydronephrosis. Electronically authenticated by: HERSON MAGANA Date: 2022-11-16 09:10 Normal [facility] URINE PROFILEon 3 Bilirubin Ql (U) Negative Normal NEGATIVE [facility] Comment on above: Performed By: #### HAMLET ROLLE #### [facility] [address] [place] [address] Dr. Kaden James Clarity (U) CLEAR Normal CLEAR [facility] Comment on above: Performed By: #### HAMLET ROLLE #### [facility] [address] [place] [address] Dr. Kaden James Color (U) YELLOW Normal YELLOW [facility] Comment on above: Performed By: #### HAMLET ROLLE #### [facility] [address] [place] [address] Dr. Kaden CARRANZA A micrscopic examination will be performed if indicated. Normal [facility] Comment on above: Performed By: #### HAMLET ROLLE #### [facility] [address] [place] [address] Dr. Kaden James Glucose Ql (U) Negative Normal NEGATIVE [facility] Comment on above: Performed By: #### Agus HILL UMICRO #### [facility] [address] [address] [address] Kaden James Hemoglobin Ql (U) SMALL Abnormal NEGATIVE [facility] Comment on above: Performed By: #### Agus HILL UMICRO #### [facility] [address] [address] [address] Kaden James Ketones Ql (U) Negative Normal NEGATIVE [facility] Comment on above: Performed By: #### Agus HILL UMICRO #### [facility] [address] [place] [address] Dr. Kaden James LEUKOCYTES Negative Normal NEGATIVE [facility] Comment on above: Performed By: #### Agus HILL UMICRO #### [facility] [address] [place] [address] Dr. Kaden James Nitrite Ql (U) Negative Normal NEGATIVE [facility] Comment on above: Performed By: #### Agus HILL UMICRO #### [facility] [address] [place] [address] Dr. Kaden James pH (U) 7.0 [pH] Normal 5-9 [facility] Comment on above: Performed By: #### Agus HILL UMICRO #### [facility] [address] [place] [address] Dr. Kaden James SPEC GRAVITY 1.020 Normal 1.005-<=1.025 [facility] Comment on above: Performed By: #### Agus HILL UMICRO #### [facility] [address] [place] [address] Dr. Kaden James UA PROTEIN Negative Normal NEGATIVE/ TRACE [facility] Comment on above: Performed By: #### Agus HILL UMICRO #### [facility] [address] [address] [address] Kaden James UR MICRO IND INDICATED Normal [facility] Comment on above: Performed By: #### Agus HILL UMICRO #### [facility] [address] [address] [address] Kaden James Urobilinogen Qn (U) 0.2 {Deonna'U}/dL Normal 0.2 - 1. 0 [facility] Comment on above: Performed By: #### E HAMLET HILL #### [facility] [address] [address] [address] Kaden James PROF CHEM 8 (BAS METB)on Anion gap [Moles/Vol] 11.3 mmol/L Normal [facility] Comment on above: Performed By: #### B MP #### [facility] [address] [address] [address] Kaden James Calcium [Mass/Vol] 9.2 mg/dL Normal 8.5-10.1 [facility] Comment on above: Performed By: #### B MP #### [facility] [address] [address] [address] Kaden James Chloride [Moles/Vol] 109 mmol/L Critically high 98-107 [facility] Comment on above: Performed By: #### B MP #### [facility] [address] [address] [address] Kaden James CO2 [Moles/Vol] 29.6 mmol/L Normal 21.0-32.0 [facility] Comment on above: Performed By: #### B MP #### [facility] [address] [address] [address] Kaden James Creatinine [Mass/Vol] 1.48 mg/dL Critically high 0.70-1.30 [facility] Comment on above: Performed By: #### B MP #### [facility] [address] [address] [address] Kaden James EGFR-AF VIETNAMESE 60 mL/min/1.73m2 Normal >=60 [facility] Comment on above: Performed By: #### B MP #### [facility] [address] [address] [address] Kaden James EGFR-NON AF VIETNAMESE 50 mL/min/1.73m2 Critically low >=60 [facility] Comment on above: Performed By: #### B MP #### [facility] [address] [address] [address] Kaden James Glucose [Mass/Vol] 112 mg/dL Critically high 74-106 [facility] Comment on above: Performed By: #### B MP #### [facility] [address] [address] [address] Kaden James Potassium [Moles/Vol] 3.9 mmol/L Normal 3.5-5.1 [facility] Comment on above: Performed By: #### B MP #### [facility] [address] [address] [address] Kaden James Sodium [Moles/Vol] 146 mmol/L Critically high 136-145 [facility] Comment on above: Performed By: #### B MP #### [facility] [address] [address] [address] Kaden James Urea nitrogen [Mass/Vol] 13.0 mg/dL Normal 7.0-18.0 [facility] Comment on above: Performed By: #### B MP #### [facility] [address] [address] [address] Kaden James Urea nitrogen/Creatinine [Mass ratio] 8.8 mg/mg Normal [facility] Comment on above: Performed By: #### B MP #### [facility] [address] [place] [address] Dr. Kaden James URINE MICROSCOPIC ONLYon BACTERIA NONE SEEN Normal NONE SEEN [facility] Comment on above: Performed By: #### Agus HILL UMICRO #### [facility] [address] [address] [address] Kaden James Bacteria identified Cx Nom (U) NOT INDICATED Normal [facility] Comment on above: Performed By: #### Agus HILL UMICRO #### [facility] [address] [place] [address] Dr. Kaden James CAST NONE SEEN Normal NONE SEEN [facility] Comment on above: Performed By: #### Agus HILL UMICRO #### [facility] [address] [address] [address] Kaden James Crystals LM Nom (Urine sed) NONE SEEN Normal NONE SEEN [facility] Comment on above: Performed By: #### Agus HILL UMICRO #### [facility] [address] [address] [address] Kaden James Epithelial cells LM Ql (Urine sed) RARE Normal NONE SEEN /RARE [facility] Comment on above: Performed By: #### Agus HILL UMICRO #### [facility] [address] [address] [address] Kaden James MUCOUS TRACE Abnormal NONE SEEN [facility] Comment on above: Performed By: #### Agus HILL UMICRO #### [facility] [address] [place] [address] Dr. Kaden James RBC 2-5 Abnormal 0-2 [facility] Comment on above: Performed By: #### Agus HILL UMICRO #### [facility] [address] [address] [address] Kaden James WBC 0-2 Abnormal NONE SEEN [facility] Comment on above: Performed By: #### Agus HILL UMICRO #### [facility] [address] [place] [address] Dr. Kaden James Vital Signs Date Time Vital Sign Value Performing Clinician Sonam correa 11-19-2022 13:39-0500 Blood Pressure Location Delfino ARIAS [facility] 11-19-2022 13:39-0500 Diastolic blood pressure 97 mm[Hg] Delfino ARIAS [facility] 11-19-2022 13:39-0500 Heart rate 69 /min Delfino ARIAS [facility] 11-19-2022 13:39-0500 Systolic blood pressure 150 mm[Hg] Delfino ARIAS [facility] Encounters Encounter Date Encounter Type Care Provider Facility Start: 04-06-2023 ambulatory Delfino Nieves ty:[facility] Start: 12-09-2022 ambulatory Delfino Nieves [facility]: [facility] Start: 12-05-2022 End: 12-06-2022 ambulatory Delfino ARIAS Facility::[id number] Start: 11-26-2022 End: 11-27-2022 ambulatory Delfino ARIAS Facility:[facility] Start: 11-26-2022 End: 11-27-2022 ambulatory LESLY ZUNIGA Facility: [facility] Start: 11-26-2022 End: 11-26-2022 Lab Drop off Delfino ARIAS [facility] Start: 11-26-2022 End: 11-26-2022 Patient encounter procedure LESLY ZUNIGA [facility] Start: 11-20-2022 End: [address] DELFINO ARIAS . Facility: Start: 11-19-2022 End: 11-20-2022 ambulatory Delfino ARIAS Facility: [facility] Start: 11-19-2022 End: 11-19-2022 Patient encounter procedure Delfino ARIAS [facility] Start: 11-16-2022 End: 11-16-2022 ambulatory TIM WEAVER Facility: Procedures Date Procedure Procedure Detail Performing Clinician Colonoscopy Delfino ARIAS Vasectomy Delfino ARIAS Immunizations Immunization Date Immunization Notes Care Provider Tom mcmullen 06-15-2018 influenza virus vaccine, unspecified formulation Delfino ARIAS [facility] Payers Date Payer Category Payer Unknown [id number] 2.16.84 [id number] 1968 Unknown [id number] 2.16.84 [id number] 1968 Unknown [id number] 2.16.8 [id number] 1968 Unknown [id number] 2.16.8 [id number] 1968 Unknown [id number] 2.16.8 [id number] 1968 Unknown [id number] 2.16.8 [id number] 1968 Unknown [id number] 2.16.8 [id number] 1968 Unknown [id number] 2.16.8 [id number] 1968 Unknown [id number] 2.16.8 [id number] 1959 Unknown [id number] Social History Date Type Detail Facility Start: 11-19-2022 Tobacco smoking status Never s moked tobacco (finding) [facility] Tobacco smoking status Never [facility] Sex Assigned At Male [facility] Functional Status Date Assessment Result Facility 11-19-2022 Functional Status N/A [facility] Clinical Note 11-20-2022 Note Date & Type Note Facility 11-20-2022 Note OP Note OPERATION DATE: 11/20/2022 PREOPERATIVE DIAGNOSIS: Retained right ureteral calculus. POSTOPERATIVE DIAGNOSIS: Retained right ureteral calculus, plus right ureteral stricture. PROCEDURE: 1. Cystoscopy. 2. Right rigid ureteral dilation. 3. Right ureteroscopy. 4. Holmium laser lithotripsy of very dense ureteral calculus 5. Stone basket extraction of ureteral calculus. 6. Placement of 6-Niuean variable length right ureteral stent. ANESTHESIA: General by LMA. COMPLICATIONS: None. INDICATIONS: Guzman Gilmore is a 51-year-old gentleman who has had a retained right ureteral stone at the L4 level that he has been unable to pass for the last six days. He is strong desirous for definitive stone manipulation and stent placement. He has signed an informed consent for these procedures after all the risks were explained to him. PROCEDURE: Patient was brought to the operating room and placed on the operating room table in the supine position. SCDs were placed on his lower extremities and turned on and functioning during the entire case. Timeout was done by all parties in the room. We all agreed upon the patient's identification and the planned procedures for this patient. General anesthesia was then administered via LMA. He was then repositioned into the modified dorsolithotomy position. All pressure points were satisfactorily padded. Genitalia were sterilely prepped and draped in the usual fashion. I started by passing a 22-Niuean Olympus cystoscope per urethra and into the bladder. Anterior urethra was normal. Prostatic urethra showed bilobar hypertrophy. Wood endoscopy in the bladder showed no evidence of any tumors or stones. While using fluoroscopy, I could see the stone superimposed over the transverse process of the L4 vertebral body. I passed a Glidewire through the scope and it went up to the stone and buckled, and eventually went beyond the stone, into the kidney. I then used an 8 and 10-Niuean rigid dilator to dilate the distal ureter. I then removed the scope and then passed a Navigator 07/27 ureteral access sheath over the wire and up to the L5 position. The stylette and wire were then removed. I then passed a flexible ureteroscope through the access sheath and then into the ureter. I then did ureteroscopy and ascended up the ureter and was able to get right to the stone. One could see that there was a stricture just distal to the stone. I then passed a 272 angstrom holmium laser fiber through the scope and made contact with the stone. Laser lithotripsy was then done at 6 klein continuously. The stone was rather hard. It eventually fragmented into four pieces. A Zero-Tip Nitinol basket was used and pieces were engaged and extracted down and sent for stone analysis. I went up and down the ureter numerous times until the ureter was free of stone. Eventually, I was able to get through the strictured area. It, of course, started to bleed a little bit. I then removed the ureteroscope. The Glidewire was passed through the sheath and up into the kidney and the sheath was removed. I then backloaded the cystoscope over the wire and passed it into the bladder. I then slid a 6-Niuean variable length [employer] ureteral stent over the wire, up into the kidney. The wire was removed and there were good curls in the kidney and in the bladder. The bladder was drained of its contents and the scope was then removed. He was then transferred to a gurney bed and wheeled to PACU in stable condition. [facility] Discharge instructions 11-19-2022 Note Date & Type Note Facility 11-19-2022 Hospital Discharg e instructions Patient Education 11/19/2022 14:11:01 Dietary Guidelines to Help Prevent Kidney Stones Dietary Guidelines to Help Prevent Kidney Stones Kidney stones are deposits of minerals and salts that form inside your kidneys. Your risk of developing kidney stones may be greater depending on your diet, your lifestyle, the medicines you take, and whether you have certain medical conditions. Most people can reduce their chances of developing kidney stones by following the instructions below. Depending on your overall health and the type of kidney stones you tend to develop, your dietitian may give you more specific instructions. What are tips for following this plan? Reading food labels Choose foods with no salt added or low-salt labels. Limit your sodium intake to less than 1500 mg per day. Choose foods with calcium for each meal and snack. Try to eat about 300 mg of calcium at each meal. Foods that contain 200 500 mg of calcium per serving include: ?8 oz (237 ml) of milk, fortified nondairy milk, and fortified fruit juice. ?8 oz (237 ml) of kefir, yogurt, and soy yogurt. ?4 oz (118 ml) of tofu. ?1 oz of cheese. ?1 cup (300 g) of dried figs. ?1 cup (91 g) of cooked broccoli. ?1 3 oz can of sardines or mackerel. Most people need 1000 to 1500 mg of calcium each day. Talk to your dietitian about how much calcium is recommended for you. Shopping Buy plenty of fresh fruits and vegetables. Most people do not need to avoid fruits and vegetables, even if they contain nutrients that may contribute to kidney stones. When shopping for convenience foods, choose: ?Whole pieces of fruit. ?Premade salads with dressing on the side. ?Low-fat fruit and yogurt smoothies. Avoid buying frozen meals or prepared deli foods. Look for foods with live cultures, such as yogurt and kefir. Cooking Do not add salt to food when cooking. Place a salt shaker on the table and allow each person to add his or her own salt to taste. Use vegetable protein, such as beans, textured vegetable protein (TVP), or tofu instead of meat in pasta, casseroles, and soups. Meal planning Eat less salt, if told by your dietitian. To do this: ?Avoid eating processed or premade food. ?Avoid eating fast food. Eat less animal protein, including cheese, meat, poultry, or fish, if told by your dietitian. To do this: ?Limit the number of times you have meat, poultry, fish, or cheese each week. Eat a diet free of meat at least 2 days a week. ?Eat only one serving each day of meat, poultry, fish, or seafood. ?When you prepare animal protein, cut pieces into small portion sizes. For most meat and fish, one serving is about the size of one deck of cards. Eat at least 5 servings of fresh fruits and vegetables each day. To do this: ?Keep fruits and vegetables on hand for snacks. ?Eat 1 piece of fruit or a handful of berries with breakfast. ?Have a salad and fruit at lunch. ?Have two kinds of vegetables at dinner. Limit foods that are high in a substance called oxalate. These include: ?Spinach. ?Rhubarb. ?Beets. ?Potato chips and vietnamese fries. ?Nuts. If you regularly take a diuretic medicine, make sure to eat at least 1 2 fruits or vegetables high in potassium each day. These include: ?Avocado. ?Banana. ?[place], prune, carrot, or tomato juice. ?Baked potato. ?Cabbage. ?Beans and split peas. General instructions Drink enough fluid to keep your urine clear or pale yellow. This is the most important thing you can do. Talk to your health care provider and dietitian about taking daily supplements. Depending on your health and the cause of your kidney stones, you may be advised: ?Not to take supplements with vitamin C. ?To take a calcium supplement. ?To take a daily probiotic supplement. ?To take other supplements such as magnesium, fish oil, or vitamin B6. Take all medicines and supplements as told by your health care provider. Limit alcohol intake to no more than 1 drink a day for non women and 2 drinks a day for men. One drink equals 12 oz of beer, 5 oz of wine, or 1 oz of hard liquor. Lose weight if told by your health care provider. Work with your dietitian to find strategies and an eating plan that works best for you. What foods are not recommended? Limit your intake of the following foods, or as told by your dietitian. Talk to your dietitian about specific foods you should avoid based on the type of kidney stones and your overall health. Grains Breads. Bagels. Rolls. Baked goods. Salted crackers. Cereal. Pasta. Vegetables Spinach. Rhubarb. Beets. Canned vegetables. Pickles. Olives. Meats and other protein foods Nuts. Nut butters. Large portions of meat, poultry, or fish. Salted or cured meats. Deli meats. Hot dogs. Sausages. Dairy Cheese. Beverages Regular soft drinks. Regular vegetable juice. Seasonings and other foods Seasoning blends with salt. Salad dressings. Canned soups. Soy sauce. Ketchup. Barbecue sauce. Canned pasta sauce. Casseroles. Pizza. Lasagna. Frozen meals. Potato chips. Niuean fries. Summary You can reduce your risk of kidney stones by making changes to your diet. The most important thing you can do is drink enough fluid. You should drink enough fluid to keep your urine clear or pale yellow. Ask your health care provider or dietitian how much protein from animal sources you should eat each day, and also how much salt and calcium you should have each day. This information is not intended to replace advice given to you by your health care provider. Make sure you discuss any questions you have with your health care provider. Document Released: 12/26/2011 Document Revised: 12/21/2019 Document Reviewed: 08/11/2017 [employer] Patient Education 2020 [email or web address]. Follow Up Care 11/18/2022 14:59:23 With:ESTELITA DAMON, Delfino Nation, URL Address: [facility] [address] [place] [address]- When: Unknown [facility] [employer] Evaluation + Plan note Note Date & Type Note Facility Evaluation + Plan note No data available for this section [facility] [employer] Evaluation + Plan note Note Date & Type Note Facility Evaluation + Plan note Future Appointments Appointment Date:12/09/2022 03:45:00 PM Scheduled Provider:Delfino ARIAS MD Location:[facility] Appointment Type:URO Procedure 15 min [facility] [employer] Evaluation + Plan note Note Date & Type Note Facility Evaluation + Plan note Future Appointments Appointment Date:12/09/2022 03:45:00 PM Scheduled Provider:Delfino ARIAS MD Location:[facility] Appointment Type:URO Procedure 15 min Diagnostic Tests PendingUrine Culture 11/26/22 [facility] Hospital Discharge instructions Note Date & Type Note Facility Hospital Discharge instructions No data available for this section [facility] [employer] Progress note Note Date & Type Note Facility Progress note No data available for this section [facility] [employer] Summary Purpose Family History No Family History Records FoundNo Family History Records Found Advance Directives No Advanced Directives Records FoundNo Advanced Directives Records Found Additional Source Comments Patient Care team informatio n (unrecognized section and content) Personnel Name: LESLY ZUNIGA MD Address: Address: [address] [place] [address] Personnel Name: LISA BECKHAM DO Address: Address: [address] [place] [address] Personnel Name: LISA BEKCHAM DO Address: Address: [address] [place], [place] [address] [address] (unrecognized sect ion and content) No Status Records FoundNo Status Records Found INFORMATION SOURCE (unrecogn ized section and content) DATE CREATED AUTHOR 11/26/2022 [facility] DATE CREATED AUTHOR AUTHOR'S ORGANIZ ATION 12/25/2022 [facility] FOR RECORDS PERTAINING TO PATIENTS WHO ARE OR HAVE BEEN ENROLLED IN A CHEMICAL DEPENDENCY/SUBSTANCEABUSE PROGRAM, SOME INFORMATION MAY BE OMITTED. This clinical summary was aggregated from multiple sources. Caution should be exercised in using it in the provision of clinical care. This summary normalizes information from multiple sources, and as a consequence, information in this document may materially change the coding, format and clinical context of patient data. In addition, data may be omitted in some cases. CLINICAL DECISIONS SHOULD BE BASED ON THE PRIMARY CLINICAL RECORDS. [facility] [facility] provides no warranty or guarantee of the accuracy or completeness of information in this document.
--- NOTE | 2023-09-10 09:39 | CA_ITS ---
[facility] Test Date: 2023-09-24 Pat Name: RONNY REEVES Department: Room: - Gender: Male Inseamer: : 1970 Requested By: SHAIKH JUANITA Order Number: [id number] Reading MD: BRANDON MARROQUIN Interpretive Statements Predominant rhythm is sinus with average rate of 82 bpm Tachycardia - max rate of 147 bpm (PSVT) - 1 episode of PSVT w/ duration of 6 beats - longest episode of 18min 6sec with rates between 111-128 bpm Bradycardia - min rate of 51 bpm - longest episode of 5min 2sec w/ rates between 54-58 bpm Ventricular ectopy - 17 total (<1%) - 15 PVC 2 couplets Patient triggered events: 1 - not associated with symptoms - associated w/ NSR Impression: Predominant rhythm is sinus with average rate of 82 bpm Fastest rate of 147 bpm (PSVT) and slowest rate of 51 bpm 15 PVC, 2 couplets No atrial fibrillation No pauses or blocks Electronically Signed On 09-26-2023 16:36:52 EST by BRANDON MARROQUIN
== END 2023-09-10 09:14 | disposition home or self-care (01) ==
LOC: CARD 09:13
PROVIDERS: PCP Internal Medicine; Visit Provider Internal Medicine
DX: R00.2 Palpitations (principal); R07.89 Other chest pain
CPT/HCPCS: 93005; 93242

== ENCOUNTER 2023-10-06 07:23 | Outpatient (OUT) | payer OTHER, SELFPAY ==
--- OUTSIDE RECORDS SUMMARY | 2023-10-06 07:25 | XMS_ITS | CCD ---
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 CD:[id number] Ww+PGhlYWQ+UK2HTFXpS 91gkLSylC7cV6HWRLiDI ywgQVBQTElOSyIgbmFtZ Z0leKEaZHAx IC8+NJ0eMVWgJgqkkGHa k0X8kEA1X97fhq0mABxq sDO8QYCcVeYrdanuh9wr qNy0PSmyCbryPzFc SDFxnR55MPE4cU21Wb34 hJKtqRDwz3skyZi9IkBq LVRxXTY0iDhsKEtif9Ko HHEoH81akJOme7O5 IGNvbGxhcHNlOyBlbXB0 eM6kWYndlkwei0rfjxsa Yms9ak80yXUyu2G4gMB2 Z5MnurI3TQBfcVSf WssxbFWYnK9fxjgwt2pf lsaaBaKzINWzLIi3YRo3 LDUtpJbjNaLaYT12HZR2 LWQnldFpE7TuKWOf bMkcTfR1o0T5Ly6DG7ZJ EghhI7AKRIFRTGgmxRQ+ YY10ic59O6GiNobnNmp8 FIJvXZZ2aWE9gC5u SBAoDCafk9P7zTL0Z1Nw pyBgwp5zq6vxPPMdRTfw X91bzISlz0V0DJLdiPN2 CZSefVzuIoIdaI67 Oyc+BQCroPozr3YqWqws y3hkv0uhsUi9XhdjPROn vbCioWkaKTZ7q5IrCl5b HCBbyBD0pOY9sR1m KpOsSzK6XQbwX305XsUx yPTeYjsxX98gX9AzzRO+ PKQfFsp0FJAfkXkjJM2q Z0TsDMDdwlgscZOy lGrbRE2yMNOkvrelQNVj wO5nYHObH1s0WfHzSmC7 SXvyE4BgYBFesjoaKk42 rL9mQfWyKxB2KIzv J2QpisF6DEUjxWOaLOlm VGQ8P18pa4Y4XKZqZZUp MDC1hQH3eG7rlGxomjlw bGVmdDsgdmVydGlj AWskAZxeI126TGTcoHbp PkNvZGluZyBEYXRlOiAg MDMvMjMvMjAyMzwvdGQ+ TTLxJFN1eEzhZWNd tKAkAKewEd6dnYbzvKux PK4uCTVmzxlhFBVmeC7a DKEcnURjoNwvRR0vHJHt zerrq743KgUcMQK6 CGFkkVYvD5NspG9yIkLw RFXnKMVrD3MpzCUlJIky B189BJjfIvP4XGYyhmLa I5QlQMKlkSkcJxS9 e3W1Ul5Fu7HxncatJ6Pl jCPfLcIzFpwhQHk0B7Ds PjwvdHI+GC75IEKsVV19 KWq0EYO1sVhbWRyg IEHxR0XoeI3tKwKhZXDq ZGRkOyc+PHRhYmxlIHdp ZHRoPScxMDAlJyBzdHls UK4hRy8tKESvYHUf cMidtRGzOlQxs8fyZNBa DTqmYY3ntKhkF0MviHJ5 OTYlc6b7Mu13I39xD2Bx dXA+VCZyqGE4lWP1 yG2gTsTlOmL8VPpoS428 UxDzuPJkQowjs9dbn3ug zUp9QgI2JTNunbRedMom LKH8i3HmSv22Y07h IHdpZHRoPSIxNSUiIHZh nJtdbk5blI9kYd3+PGNv fHY4vWR2fB9lBvYfJtR3 RHixW112AeDbkEZa Wfwer2edp9xpcMn1LoDg IYRbszTrtSduKVD2p7Xo Vk84Q6KacVpit9MjKfy7 av31yEWrk8I0nMY0 D0NuPCWspvkgcWDumUzf RB9lXSPmsencHWNpaP4r TSCqB0h9PvSaXoI0IBgm T1SqtpW2ZPCnmGWg MNSegQCOlP3xtbmru4vk emlhBjVvQKPcHSe4RFj8 ZUCsnEdkQmChHCB4WcA9 ZDT0sXDovV2isYob mnbjqX6wVni+PXO9qYGm mLUADF4lZdkcrVS+PHRk SGH1iItdFDooISVvlP2s IYZmM9c9GeBpPoV1 EZgxL8DflnV7TAOxlZTv EPYydLBYzZ3iwdmpu4ah rhzaClUdPNMxVXx6XEv3 LWFsaWduOiBsZWZ0 LjS8DZU8xCXnxJ8lxGev vonnaI4zFib+QmlydGgg INQ8QDz4U1PsZei5FCZx xRpvBJ8hcXZlERcp Dy9dkQzrqIzkBV3iVHSs woumy747XmMfm8ybQVPa nRDiTSdhBJA3A15pt5B0 TTXaFRKjYSM6aDB1 wN1vnJvjsmqveVFujCve mcEhqElaHSamBLsrZ378 OCIbkMahRiEgICv9Z9Xa Qin1ZXYcrRkdFE1b kUMbWVhzMt2rpLbjiKwr PS8bVEKroecii960SaTr t8kkIMWwaAQkCGacHKG2 D02wy8J4QPJyXCKa CMF9tRH5fP5jqNexpyci bGVmdDsgdmVydGljYWwt LVhqO745GOCcjPfvYiIw vZm4Z2NzBna2AHFe dWvoIS7liXVpAQtvGe8l wRojsBwbHH3wOQPlcdvb h844NsXwx5skTUBjcLLj JBbqOLP0E86hb5G9 WMCpTVYbXVX2zQT8sE5i bGlnbjogbGVmdDsgdmVy nWrbJXkhCNsyU648KTEa cDsnPlBhdGllbnQg BPpaEDe6I5DgUbcjdTZ+ JG98TSEfDW63qRIisGVg s1dwrCq4OeOcUBUxUZF8 rCnbKTviu5WrMDTo E66oiAAoi0U6VPVmuKvd sLQwNxOdkGM0eT5uSSyi otetb9ofrqrcOhkdi4db jo84iK35U71bOWhh ZHRoPSIzMCUiIHZhbGln gy4tyS7wJl5+PGNvbCB3 sZV9kA6yRFAgFfR2KNzl H625DuHqaARkScok s4nhu4cfrAa7SjX2SQLz woVktYhvATE8h8ZvKc34 V73dTDhbSCDgVRTxXIKu GOMqhQmfsd8sbH7o Ii8+OMWlrXO6xZE7tZ1v CkIqRtV3DWzlL627OoRc xUXhUocaM26lC6CggTQ+ HAIsNtv7NPBdzBjn OP1njRKvFMwpMv8bNXF8 NrFvQdFkRNdoZ1QzEWPb kdqklwjyiLG7GTTiQAWw xM35Pt6yoBxzXFMq kJWDeM6infxpi5ffmrdi VuWySKFqXIq1RYc0HOMe oWbcGmDvKLX8ZzQ9FZK5 uZAieL6qhEwvbcca wL7tR5EeSEAlcgapGv78 lT2lBkMfOqY2NUrfLce+ TfZYPHKFN4LlVKqXQWUM GQ20DR23wDDub7C2 uRE8Y2NbKRVhlkebuhmz oPN2DYMgNMJzqG57mMYn XVsrZb7re0I8i905UTQc KMUcoQ98Um0lpEuw NGTefJMFaQ8fvhjdb8rs txopTrWmHBWiAOv5EHb1 XSFuhQkiWjTqVIN8RuO8 NPO7uZPdsT7yyVve ldlgsH8kWge+MDMvMTAv WQp9UDoswYD+PHRkIHN0 fWbzTSpyCOLmiO3sYBSy E9c9ObIiAvX0GZwi N1HbALItwfqhLw95wO2b NjSsJeG4UPyoW3CgboL8 MNDehEMrJEvhIJB1N76x r6W7WVPoWEZnSAL3 dXE4iT9wpHebvtjhiQCp dDsgdmVydGljYWwtYWxp D424XPCnsWbwIjA0MVdx XNOzSH21WB11yRYt v3P5dCP5W6CzUWBzzsbi opojhNV2QGBfCFGmxF72 aKNfLYvrEi0xi8S2i647 IDLmZUTdqC26Xi4y kEyaBYQjjHTTfX5wtdxk w8ebsmrkCqIxKMOwKHq2 TMc0BCHirUrrExDsVNU3 GgC2PHB6gRIowR7f wZfwxmkdyY2hKiz+TWFs ZTwvdGQ+UTXwOJS0jDax AEjlDWXmkS1bOEFaH2m3 ScWxLyZ3PLfhX8Uu LEWmqukgEe02xH2tPaEd VbO9UIqsB6ZakvO7UUZs mMLuNXtcMKT4O42io8L5 TUYoSHZkVNR8tBY8 hB2xgFkvrtizcUAeuIus hhZiqIwlQEfgNQumO741 YWCxqXatQmamAjCCxx8t OF9bWyjfgVI+PC90 oe58F8CrPmytDjz5KNCm DSX2hGH0yO2oHEHgLNhy o4H9pGU2E5XcaeZxxf0u k2gqCRVlGTvlY44v sHMuv5K6XOOywBS1PEZh wHqxDxHtsV18Pnh+PGNv eOaws7JiSblax2kqz9zt gJj4WiBoNTMpueTw cUdhGJO0i1BiZr09Z57d IHdpZHRoPSIzMCUiIHZh oUgjdl7tkV0iJm6+PGNv dTV2dQE9hZ2wWuTc TvX2MTikW770ZnHoxXDo Uqwbj6lwc0zblHo6FkZl WKEjbdGqhPocZKI0a6Vp Ga12C7XcrAlhl7Wp Fjv9qg96bNYzy3X1oID7 W9OxKFPhnspubGQjrNar ID6sIUQdmruhEPThyY6h GRTeH6r6JxReTaP1 PPtzL4UwfkV3JJXrsVXc WBLudEHLvR1pfnlay4cj nzghNaWfYWBfSJv3HKo4 LWFsaWduOiBsZWZ0 UhH4UPL5zFEyhI4lsIrm ccecwJ6iJwj+OLo8a7ct cEOyOQ5pgCE8ZQ25OQ36 xXGdj4L3rYF3E0Di HACufzwhyyhfbXQ1UDGn GATecT68Nj6nkHtkCo2n AKUhROU7UIHerXXaT6Ag mK8xCaGbQNKrXNWz N9BvdSPqGDyzK805IOpx XyU4PFUidpRlP4LbGACk yXvbZjS7w6P4Yk2CNU32 WQ39WS19nUQmr8U8 nNH9G2QcKRUccauoqyuq qJY3NIUfGVXulV47Kb4j vQfnAz2eUWUkGIN3YWQb lITbL4CknZ5gBlCv RYBxHPJfQ6AhxDWqAIbv G981CDpsIjW3YZTsnbYi O3VvFYGteNgwCsG9t3E3 Cq8ASk77PZ74UE66 jVSyd3Z7eBE4G5QnABGr bgbigzbvjQO5ZUFxJCQj sZ26Xf5xqGjcLu8rAKVi KES2PGCtwBUkW2Sz zF7zEsXyKYNnQQRwA9Ak dECcIKppP090WNbtTkX5 BOYtmuIzJ9MjNDKqhTxa JoU4y7K8Gb8GSJsp xjc4W5KyByfsiVC+PC90 BFCuAE54oXDpmMOij0bh hMr1GpLjBSRyMKR2aMdr EPocd3AbDZQxH23s ySQur0Z0 (more content not included)... Normal [facility] Consent for Procedure/Surger yon 12-03-2022 Consent for Procedure/Surgery [id number]# 1.00CD:127 Normal [facility] C Urineon 11-29-2022 Bacteria identified Cx Nom [...] Locations R1: This test was performed at: [facility], [address] [place] [address], [facility]- , , Normal [facility] Comment on above: Performed By: #### 2 [id number] ####[facility] [address] [place] [address] Ambulatory Visit Summaryon 0 11-26-2022 Ambulatory Visit Summary GUZMAN REEVES :1970 Visit Date:11/26/2022 Ambulatory Visit Instructions Your Diagnosis Gross hematuria Tests Performed Urnls Dip Stick Auto w/o Microscopy POC [id number] Your Care Team Attending Physician - LESLY ZUNIGA MD Primary Care Physician - LISA BECKHAM DO This Is Your Medications List albuterol (Ventolin HFA 90 mcg/inh Aerosol) docusate (Colace 100 mg Cap) zolpidem (zolpidem 10 mg oral tablet) Procedures Performed Colonoscopy, Vasectomy. What to do next Scheduled Follow-Up Appointments Thursday 3:45 PM EDT With: ESTELITA DAMON, Delfino Nation Where: [facility] CALCULI, URINARYon 3 2,8 Dihydroxyadenine Normal [facility] Comment on above: Performed By: #### C ALCULI #### [facility] [address] [address] [address] Kaden James Ammonium Acid Urate Normal [facility] Comment on above: Performed By: #### C ALCULI #### [facility] [address] [address] [address] Kaden James Bilirubin Ql (U) Normal [facility] Comment on above: Performed By: #### C ALCULI #### [facility] [address] [address] [address] Kaden James Ca Oxalate Dihydrate Normal [facility] Comment on above: Performed By: #### C ALCULI #### [facility] [address] [address] [address] Kaden James CaHPO4 (Brushite) [facility] Comment on above: Performed By: #### C ALCULI #### [facility] [address] [address] [address] Kaden James Calcium Bilirubinate [facility] Comment on above: Performed By: #### C ALCULI #### [facility] [address] [address] [address] Kaden James Calcium Carbonate [facility] Comment on above: Performed By: #### C ALCULI #### [facility] [address] [address] [address] Kaden James Calcium Oxalate Monohydrate 100 % [facility] Comment on above: Performed By: #### C ALCULI #### [facility] [address] [address] [address] Kaden James Calcium Palmitate [facility] Comment on above: Performed By: #### C ALCULI #### [facility] [address] [address] [address] Kaden James Calcium Phosphate [facility] Comment on above: Performed By: #### C ALCULI #### [facility] [address] [address] [address] Kaden James Calcium Stearate [facility] Comment on above: Performed By: #### C ALCULI #### [facility] [address] [address] [address] Kaden James Carbonate Apatite [facility] Comment on above: Performed By: #### C ALCULI #### [facility] [address] [address] [address] Kaden James Cellular Material [facility] Comment on above: Performed By: #### C ALCULI #### [facility] [address] [address] [address] Kaden James Cholesterol [facility] Comment on above: Performed By: #### C ALCULI #### [facility] [address] [place] [address] Dr. Kaden James Color (U) Brown [facility] Comment on above: Performed By: #### C ALCULI #### [facility] [address] [address] [address] Kaden James Comment [facility] Comment on above: Performed By: #### C ALCULI #### [facility] [address] [place] [address] Dr. Kaden James Comment Comment [facility] Comment on above: Result Comment: Calc ulus received wet. Wet calculi must be dried before analysis, which delays reporting of results. Leaving calculi wet (such as water, saline, blood, urine) may lead to changes in composition. Performed By: #### C ALCULI #### [facility] [address] [place] [address] Dr. Kaden James Comment: Comment [facility] Comment on above: Result Comment: Enid marroquin questions regarding Calculi Analysis contact [facility] at: [phone]. Performed By: #### C ALCULI #### [facility] [address] [place] [address] Dr. Kaden James Composition Comment [facility] Comment on above: Result Comment: Perc entage (Represents the % composition) Performed By: #### C ALCULI #### [facility] [address] [place] [address] Dr. Kaden James Cystine [facility] Comment on above: Performed By: #### C ALCULI #### [facility] [address] [place] [address] Dr. Kaden James Disclaimer: Comment [facility] Comment on above: Result Comment: This test was developed and its performance characteristics determined by [facility]. It has not been cleared or approved by the Food and Drug Administration. Performed By: #### C ALCULI #### [facility] [address] [place] [address] Dr. Kaden James Dried Blood [facility] Comment on above: Performed By: #### C ALCULI #### [facility] [address] [address] [address] Kaden James Drug or Metabolite Normal [facility] Comment on above: Performed By: #### C ALCULI #### [facility] [address] [address] [address] Kaden James Hydroxyapatite Normal [facility] Comment on above: Performed By: #### C ALCULI #### [facility] [address] [address] [address] Kaden James Mg NH4 PO4 (Struvite) [facility] Comment on above: Performed By: #### C ALCULI #### [facility] [address] [address] [address] Kaden James MgHPO4 (Newberyite) Normal [facility] Comment on above: Performed By: #### C ALCULI #### [facility] [address] [place] [address] Dr. Kaden James Other component(s) Normal [facility] Comment on above: Performed By: #### C ALCULI #### [facility] [address] [address] [address] Kaden James PDF . [facility] Comment on above: Performed By: #### C ALCULI #### [facility] [address] [place] [address] Dr. Kaden James Photo Comment Normal [facility] Comment on above: Result Comment: Phot ograph will follow under a separate cover Performed By: #### C ALCULI #### [facility] [address] [place] [address] Dr. Kaden James Please note: Comment Normal [facility] Comment on above: Result Comment: Calc renetta report will follow via computer, mail or basic sciences dean delivery. Performed By: #### C ALCULI #### [facility] [address] [place] [address] Dr. Kaden James Size 1x1 Normal [facility] Comment on above: Result Comment: Mult iple pieces received. Dimensions of the largest piece reported. Performed By: #### C ALCULI #### [facility] [address] [address] [address] Kaden James Sodium Acid Urate Normal [facility] Comment on above: Performed By: #### C ALCULI #### [facility] [address] [address] [address] Kaden James Source Comment [facility] Comment on above: Result Comment: Righ t Ureter Performed By: #### C ALCULI #### [facility] [address] [address] [address] Kaden James Triamterene [facility] Comment on above: Performed By: #### C ALCULI #### [facility] [address] [address] [address] Kaden James Uric Acid [facility] Comment on above: Performed By: #### C ALCULI #### [facility] [address] [address] [address] Kaden James Uric Acid Dihydrate [facility] Comment on above: Performed By: #### C ALCULI #### [facility] [address] [address] [address] Kaden James Weight 22 mg [facility] Comment on above: Performed By: #### C ALCULI #### [facility] [address] [place] [address] Dr. Kaden James Xanthine [facility] Comment on above: Performed By: #### C ALCULI #### [facility] [address] [address] [address] Kaden James Operative Reporton Operative Report [id number] #1.00CD:127 Normal [facility] RAD - CT Reporton 11-24-2022 RAD - CT Report [id number] #1.00CD:127 Normal [facility] RAD - MISCon 11-24-2022 RAD - MISC [id number] #1.00CD:127 Normal [facility] Consent for Procedure/Surger yon 11-20-2022 Consent for Procedure/Surgery [id number] #1.00CD:127 Normal [facility] Screenson 11-20-2022 Screens [id number] #1.00CD:127 [facility] Patient Educationon 11-20-19 Patient Education Urology [...] Rhubarb. ? Beets. ? Potato chips and maltese fries. ? Nuts. ? If you regularly take a diuretic medicine, make sure to eat at least 1?2 fruits or vegetables high in potassium each day. These include: ? Avocado. ? Banana. ? [place], prune, carrot, or tomato juice. ? Baked [...] dr (more content not included)... Normal [facility] Urology Office/Clinic Noteon 11-19-2022 Urology Office/Clinic Note Chief Complaint Follow up to [facility] HPI Staff Pt is here today for follow up to [facility] due to right flank and abdominal [...] and ureteral calculous obstruction) Follow up to [facility] ER visit on 11/16/22 due to [...] [facility] [address], [place] [address]- Additional Instructions: x-ray, schedule tentative laser litho Patient Education Dietary Guidelines to Help Prevent Kidney Stones I, Jyoti Morales, personally scribed for Dr. Arias on 11/19/2022 14:23:00. . Documentation recorded by the scribe, Jyoti Morales, accurately reflects the services(s) I performed and decisions made by me. Authenticated by Dr. Arias on 11/19/2022 14:25:50. Problem List/Past Medical History [...] (at bedti (more content not included)... Normal [facility] Comment on above: Result Comment: Elec tronically Signed By: Delfino ARIAS MD\.br\Date and Time Signed: 11/19/22 14:25 EST\.br\Electronically Co-Signed By: Jyoti Morales\.br\Date and Time Co-Signed: 11/19/22 14:24 EST ED Note-Physicianon 11-19-19 ED Note-Physician [id number] #1.00CD:127 Normal [facility] CBC AUTO DIFFon 11-16-2022 BASO # 0.1 103/ul Normal 0.0-0.1 [facility] Comment on above: Performed By: #### C BC #### [facility] [address] [address] [address] Kaden James Basophils/100 WBC (Bld) 0.6 % Normal 0.2-2.0 [facility] Comment on above: Performed By: #### C BC #### [facility] [address] [address] [address] Kaden James EO # 0.1 103/ul Normal 0.0-0.7 [facility] Comment on above: Performed By: #### C BC #### [facility] [address] [address] [address] Kaden James Eosinophils/100 WBC (Bld) 1.4 % Normal 0.9-7.0 [facility] Comment on above: Performed By: #### C BC #### [facility] [address] [address] [address] Kaden James Erythrocyte distribution width (RBC) [Ratio] 12.2 % Normal 11.0-15.0 [facility] Comment on above: Performed By: #### C BC #### [facility] [address] [address] [address] Kaden James Hematocrit (Bld) [Volume fraction] 44.6 % Normal 42.0-54.0 [facility] Comment on above: Performed By: #### C BC #### [facility] [address] [address] [address] Kaden James Hemoglobin (Bld) [Mass/Vol] 15.5 g/dL Normal 14.0-18.0 [facility] Comment on above: Performed By: #### C BC #### [facility] [address] [place] [address] Dr. Kaden James IG # 0.03 10e3/ul Normal 0.00-0.03 [facility] Comment on above: Performed By: #### C BC #### [facility] [address] [place] [address] Dr. Kaden James IG % 0.3 % Normal 0.0-0.5 [facility] Comment on above: Performed By: #### C BC #### [facility] [address] [place] [address] Dr. Kaden James LYMPH # 2.6 103/ul Normal 1.2-3.8 [facility] Comment on above: Performed By: #### C BC #### [facility] [address] [place] [address] Dr. Kaden James Lymphocytes/100 WBC (Bld) 25.6 % Normal 20.5-60.0 [facility] Comment on above: Performed By: #### C BC #### [facility] [address] [place] [address] Dr. Kaden James MANUAL DIFF REQ NO Normal [facility] Comment on above: Performed By: #### C BC #### [facility] [address] [place] [address] Dr. Kaden James MCH (RBC) [Entitic mass] 31.9 pg Normal 25.9-34.0 [facility] Comment on above: Performed By: #### C BC #### [facility] [address] [place] [address] Dr. Kaden James MCHC (RBC) [Mass/Vol] 34.8 g/dL Normal 29.9-35.2 [facility] Comment on above: Performed By: #### C BC #### [facility] [address] [place] [address] Dr. Kaden James MCV (RBC) [Entitic vol] 91.8 fL Normal 80.0-94.0 [facility] Comment on above: Performed By: #### C BC #### [facility] [address] [place] [address] Dr. Kaden James MONO # 0.7 103/ul Normal 0.3-0.8 [facility] Comment on above: Performed By: #### C BC #### [facility] [address] [address] [address] Kaden James Monocytes/100 WBC (Bld) 6.8 % Normal 1.7-12.0 [facility] Comment on above: Performed By: #### C BC #### [facility] [address] [address] [address] Kaden James NEUT # 6.6 103/ul Critically high 1.4-6.5 [facility] Comment on above: Performed By: #### C BC #### [facility] [address] [address] [address] Kaden James Neutrophils/100 WBC (Bld) 65.3 % Normal 43.0-75.0 [facility] Comment on above: Performed By: #### C BC #### [facility] [address] [place] [address] Dr. Kaden James Platelet mean volume (Bld) [Entitic vol] 9.2 fL Critically low 9.5-13.5 [facility] Comment on above: Performed By: #### C BC #### [facility] [address] [address] [address] Kaden James PLT 393 103/ul Normal 150-450 [facility] Comment on above: Performed By: #### C BC #### [facility] [address] [place] [address] Dr. Kaden James RBC 4.86 106/ul Normal 4.70-6.10 [facility] Comment on above: Performed By: #### C BC #### [facility] [address] [address] [address] Kaden James WBC 10.1 103/ul Normal 4.0-11.0 [facility] Comment on above: Performed By: #### C BC #### [facility] [address] [place] [address] ABD/PELVIS WO CONon [...] HERSON MAGANA Date: 2022-11-16 09:10 Normal [facility] ER URINE PROFILEon 3 Bilirubin Ql (U) Negative Normal NEGATIVE [facility] Comment on above: Performed By: #### HAMLET ROLLE #### [facility] [address] [place] [address] Dr. Kaden James Clarity (U) CLEAR Normal CLEAR [facility] Comment on above: Performed By: #### HAMLET ROLLE #### [facility] [address] [place] [address] Dr. Kaden James Color (U) YELLOW Normal YELLOW [facility] Comment on above: Performed By: #### HAMLET ROLLE #### [facility] [address] [place] [address] Dr. Kaden CARRANZA A micrscopic examination will be performed if indicated. Normal [facility] Comment on above: Performed By: #### HAMLET ROLLE #### [facility] [address] [place] [address] Dr. Kaden James Glucose Ql (U) Negative Normal NEGATIVE [facility] Comment on above: Performed By: #### Agus HILL UMICRO #### [facility] [address] [address] [address] Kaden James Hemoglobin Ql (U) SMALL Abnormal NEGATIVE [facility] Comment on above: Performed By: #### Agus HILL UMICRO #### [facility] [address] [address] [address] Kaden James Ketones Ql (U) Negative Normal NEGATIVE [facility] Comment on above: Performed By: #### Agus HILL UMICRO #### [facility] [address] [place] [address] Dr. Kaden James LEUKOCYTES Negative Normal NEGATIVE [facility] Comment on above: Performed By: #### Agus HILL UMICRO #### [facility] [address] [place] [address] Dr. Kaden James Nitrite Ql (U) Negative Normal NEGATIVE [facility] Comment on above: Performed By: #### Agus HILL UMICRO #### [facility] [address] [place] [address] Dr. Kaden James pH (U) 7.0 [pH] Normal 5-9 [facility] Comment on above: Performed By: #### Agus HILL UMICRO #### [facility] [address] [place] [address] Dr. Kaden James SPEC GRAVITY 1.020 Normal 1.005-<=1.025 [facility] Comment on above: Performed By: #### Agus HILL UMICRO #### [facility] [address] [place] [address] Dr. Kaden James UA PROTEIN Negative Normal NEGATIVE/ TRACE [facility] Comment on above: Performed By: #### Agus HILL UMICRO #### [facility] [address] [address] [address] Kaden James UR MICRO IND INDICATED Normal [facility] Comment on above: Performed By: #### Agus HILL UMICRO #### [facility] [address] [address] [address] Kaden James Urobilinogen Qn (U) 0.2 {Deonna'U}/dL Normal 0.2 - 1. 0 [facility] Comment on above: Performed By: #### E HAMLET HILL #### [facility] [address] [address] [address] Kaden James PROF CHEM 8 (BAS METB)on Anion gap [Moles/Vol] 11.3 mmol/L Normal [facility] Comment on above: Performed By: #### B MP #### [facility] [address] [address] [address] Kaden James Calcium [Mass/Vol] 9.2 mg/dL Normal 8.5-10.1 [facility] Comment on above: Performed By: #### B MP #### [facility] [address] [address] [address] Kaden James Chloride [Moles/Vol] 109 mmol/L Critically high 98-107 [facility] Comment on above: Performed By: #### B MP #### [facility] [address] [address] [address] Kaden James CO2 [Moles/Vol] 29.6 mmol/L Normal 21.0-32.0 [facility] Comment on above: Performed By: #### B MP #### [facility] [address] [address] [address] Kaden James Creatinine [Mass/Vol] 1.48 mg/dL Critically high 0.70-1.30 [facility] Comment on above: Performed By: #### B MP #### [facility] [address] [address] [address] Kaden James EGFR-AF SYRIAN 60 mL/min/1.73m2 Normal >=60 [facility] Comment on above: Performed By: #### B MP #### [facility] [address] [address] [address] Kaden James EGFR-NON AF SYRIAN 50 mL/min/1.73m2 Critically low >=60 [facility] Comment on above: Performed By: #### B MP #### [facility] [address] [address] [address] Kaden James Glucose [Mass/Vol] 112 mg/dL Critically high 74-106 [facility] Comment on above: Performed By: #### B MP #### [facility] [address] [address] [address] Kaden James Potassium [Moles/Vol] 3.9 mmol/L Normal 3.5-5.1 [facility] Comment on above: Performed By: #### B MP #### [facility] [address] [address] [address] Kaden James Sodium [Moles/Vol] 146 mmol/L Critically high 136-145 [facility] Comment on above: Performed By: #### B MP #### [facility] [address] [address] [address] Kaden James Urea nitrogen [Mass/Vol] 13.0 mg/dL Normal 7.0-18.0 [facility] Comment on above: Performed By: #### B MP #### [facility] [address] [address] [address] Kaden James Urea nitrogen/Creatinine [Mass ratio] 8.8 mg/mg Normal [facility] Comment on above: Performed By: #### B MP #### [facility] [address] [place] [address] Dr. Kaden James URINE MICROSCOPIC ONLYon BACTERIA NONE SEEN Normal NONE SEEN [facility] Comment on above: Performed By: #### Agus HILL UMICRO #### [facility] [address] [address] [address] Kaden James Bacteria identified Cx Nom (U) NOT INDICATED Normal [facility] Comment on above: Performed By: #### Agus HILL UMICRO #### [facility] [address] [place] [address] Dr. Kaden James CAST NONE SEEN Normal NONE SEEN [facility] Comment on above: Performed By: #### Agus HILL UMICRO #### [facility] [address] [address] [address] Kaden James Crystals LM Nom (Urine sed) NONE SEEN Normal NONE SEEN [facility] Comment on above: Performed By: #### Agus HILL UMICRO #### [facility] [address] [address] [address] Kaden James Epithelial cells LM Ql (Urine sed) RARE Normal NONE SEEN /RARE [facility] Comment on above: Performed By: #### Agus HILL UMICRO #### [facility] [address] [address] [address] Kaden James MUCOUS TRACE Abnormal NONE SEEN [facility] Comment on above: Performed By: #### Agus HILL UMICRO #### [facility] [address] [place] [address] Dr. Kaden James RBC 2-5 Abnormal 0-2 [facility] Comment on above: Performed By: #### Agus HILL UMICRO #### [facility] [address] [address] [address] Kaden James WBC 0-2 Abnormal NONE SEEN [facility] Comment on above: Performed By: #### Agus HILL UMICRO #### [facility] [address] [place] [address] Dr. Kaden James Vital Signs Date Time Vital Sign Value Performing Clinician Sonam correa 11-19-2022 13:39-0500 Blood Pressure Location Delfino ARIAS [facility] 11-19-2022 13:39-0500 Diastolic blood pressure 97 mm[Hg] Delfino ARIAS [facility] 11-19-2022 13:39-0500 Heart rate 69 /min Delfino ARIAS [facility] 11-19-2022 13:39-0500 Systolic blood pressure 150 mm[Hg] Delfino ARIAS [facility] Encounters Encounter Date Encounter Type Care Provider Facility Start: 04-06-2023 ambulatory Delfino Nieves ty:[facility] Start: 12-09-2022 ambulatory Delfino Nieves ty: [facility] Start: 12-05-2022 End: 12-06-2022 ambulatory Delfino ARIAS Facility::[id number] Start: 11-26-2022 End: 11-27-2022 ambulatory Delfino ARIAS Facility:[facility] Start: 11-26-2022 End: 11-27-2022 ambulatory LESLY ZUNIGA Facility: [facility] Start: 11-26-2022 End: 11-26-2022 Lab Drop off Delfino ARIAS [facility] Start: 11-26-2022 End: 11-26-2022 Patient encounter procedure LESLY ZUNIGA [facility] Start: 11-20-2022 End: [address] DELFINO ARIAS . Facility: Start: 11-19-2022 End: 11-20-2022 ambulatory Delfino ARIAS Facility: [facility] Start: 11-19-2022 End: 11-19-2022 Patient encounter procedure Delfino ARIAS [facility] Start: 11-16-2022 End: 11-16-2022 ambulatory TIM WEAVER Facility: Procedures Date Procedure Procedure Detail Performing Clinician Colonoscopy Delfino ARIAS Vasectomy Delfino ARIAS Immunizations Immunization Date Immunization Notes Care Provider Tom mcmullen 06-15-2018 influenza virus vaccine, unspecified formulation Delfino ARIAS [facility] Payers Date Payer Category Payer Unknown [id number] 2.16.84 [id number] 1968 Unknown [id number] 2.16.84 [id number] 1968 Unknown [id number] 2.16.8 [id number] 1968 Unknown [id number] 2.16.8 [id number] 1968 Unknown [id number] 2.16.8 [id number] 1968 Unknown [id number] 2.16.8 [id number] 1968 Unknown [id number] 2.16.8 [id number] 1968 Unknown [id number] 2.16.8 [id number] 1968 Unknown [id number] 2.16.8 [id number] 1959 Unknown [id number] Social History Date Type Detail Facility Start: 11-19-2022 Tobacco smoking status Never s moked tobacco (finding) [facility] Tobacco smoking status Never [facility] Sex Assigned At Male [facility] Functional Status Date Assessment Result Facility 11-19-2022 Functional Status N/A [facility] Clinical Note 11-20-2022 Note Date & Type Note Facility 11-20-2022 Note OP Note OPERATION DATE: 11/20/2022 PREOPERATIVE DIAGNOSIS: Retained right ureteral calculus. POSTOPERATIVE DIAGNOSIS: Retained right ureteral calculus, plus right ureteral stricture. PROCEDURE: 1. Cystoscopy. 2. Right rigid ureteral dilation. 3. Right ureteroscopy. 4. Holmium laser lithotripsy of very dense ureteral calculus 5. Stone basket extraction of ureteral calculus. 6. Placement of 6-Burundian variable length right ureteral stent. ANESTHESIA: General [...] usual fashion. I started by passing a 22-Burundian Olympus cystoscope per urethra and into the [...] kidney. I then used an 8 and 10-Burundian rigid dilator to dilate the distal ureter. [...] into the bladder. 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 The wire was removed and there were good curls in the kidney and in the bladder. The bladder was drained of its contents and the scope was then removed. He was then transferred to a gurney bed and wheeled to PACU in stable condition. [facility] Discharge instructions 11-19-2022 Note Date & Type [...] include: ?Spinach. ?Rhubarb. ?Beets. ?Potato chips and maltese fries. ?Nuts. If you regularly take a diuretic medicine, make sure to eat at least 1 2 fruits or vegetables high in potassium each day. These include: ?Avocado. ?Banana. ?[place], prune, carrot, or tomato juice. ?Baked potato. [...] Casseroles. Pizza. Lasagna. Frozen meals. Potato chips. Burundian fries. Summary You can reduce your risk [...] 12/26/2011 Document Revised: 12/21/2019 Document Reviewed: 08/11/2017 [employer] Patient Education 2020 Smart Checkout. Follow Up Care 11/18/2022 14:59:23 With:ESTELITA DAMON, Delfino Nation, URL Address: [facility] [address] [place] [address]- When: Unknown [facility] ZeroMail Evaluation + Plan note Note Date & Type Note Facility Evaluation + Plan note No data available for this section [facility] [employer] Evaluation + Plan note Note Date & Type Note Facility Evaluation + Plan note Future Appointments Appointment Date:12/09/2022 03:45:00 PM Scheduled Provider:Delfino ARIAS MD Location:[facility] Appointment Type:URO Procedure 15 min [facility] [employer] Evaluation + Plan note Note Date & Type Note Facility Evaluation + Plan note Future Appointments Appointment Date:12/09/2022 03:45:00 PM Scheduled Provider:Delfino ARIAS MD Location:[facility] Appointment Type:URO Procedure 15 min Diagnostic Tests PendingUrine Culture 11/26/22 [facility] Hospital Discharge instructions Note Date & Type Note Facility Hospital Discharge instructions No data available for this section [facility] [employer] Progress note Note Date & Type Note Facility Progress note No data available for this section [facility] [employer] Summary Purpose Family History No Family History Records FoundNo Family History Records Found Advance Directives No Advanced Directives Records FoundNo Advanced Directives Records Found Additional Source Comments Patient Care team informatio n (unrecognized section and content) Personnel Name: LESLY ZUNIGA MD Address: Address: [address] [place] [address] Personnel Name: LISA BECKHAM DO Address: Address: [address] [place] [address] Personnel Name: LISA BECKHAM DO Address: Address: [address] [place], [place] [address] [address] (unrecognized sect ion and content) No Status Records FoundNo Status Records Found INFORMATION SOURCE (unrecogn ized section and content) DATE CREATED AUTHOR 11/26/2022 [facility] DATE CREATED AUTHOR AUTHOR'S ORGANIZ ATION 12/25/2022 [facility] FOR RECORDS PERTAINING TO PATIENTS WHO ARE [...] BE BASED ON THE PRIMARY CLINICAL RECORDS. [facility] [employer] [facility]. provides no warranty or guarantee of the accuracy or completeness of information in this document.
--- NOTE | 2023-10-06 09:14 | P.STRESS_ITS ---
Stress Test Stress Test Allergies Allergy/AdvReac Type Severity Reaction Status Date / Time No Known Drug Allergies Allergy Verified 07/01/23 08:07 Requesting physician: Shaikh Mckinley Procedure: Exercise stress test General Information: Reason for Stress Test: Chest pain Cardiac History and Risk Factors: Hypertension Resting 12 - Lead Electrocardiogram: Rate & rhythm: Normal sinus at a rate of 69. [place]: Normal T-waves: Normal ST-segments: Normal Stress Test: Protocol: Feliciano protocol was followed. Exercise capacity: Excellent exercise capacity. Total exercise time of 10 minutes 33 seconds reached Feliciano stage 4 at 4.2MPH, 16% grade, & 13.4 METs. Blood pressure: Initial: 126/84, Maximum: 164/86, Recovery: 130/82 Rate & rhythm: Patient remained in sinus rhythm during the exercise and recovery portions of the study.? The maximum heart rate was 146, which was 87% of the maximum predicted heart rate 166. A PVC was noted. ST-segments & T-waves: There were no T-wave changes and no ST-segment changes when compared to the baseline EKG. Patient response/symptoms: There were no symptoms similar to the chief complaint. Interpretation: Normal exercise stress test without electrocardiographical evidence of ischemia. Asymptomatic of chief complaint. Wu treadmill score is 10.6, which places patient in a low risk category. Clinical correlation required.
== END 2023-10-06 07:24 | disposition home or self-care (01) ==
LOC: CARD 07:23
PROVIDERS: PCP Internal Medicine; Visit Provider Internal Medicine
DX: R07.89 Other chest pain (principal)
CPT/HCPCS: 93017

== ENCOUNTER 2023-12-16 07:15 | Emergency (ER) | payer OTHER, SELFPAY ==
[2023-12-16 07:19] VITALS: BP 157/98; PULSE 79; TEMP 36.7; O2SAT 97; BMI 53.2
--- OUTSIDE RECORDS SUMMARY | 2023-12-16 07:23 | XMS_ITS | CCD ---
Author Organization [facility] Care Team Providers Care Change Release Manager Name Role Phone LESLY ZUNIGA Primary Care Physician TIM WEAVER Admitting Unavailable TIM WEAVER Attending Unavailable SHAIKH Nenita SEN Primary Care Unavailable TIM WEAVER Consulting Unavailable HERSON MAGANA Consulting Unavailable ESTELITA ., DR DURANT Admitting Unavailable ESTELITA ., DR DURANT Attending Unavailable SHAIKH Nenita SEN Primary Care Unavailable ESTELITA ., DR DURANT Consulting Unavailable NAYE SIMMONS Consulting Unavailable CATARINO IIKURTIS Consulting Unavailable LISA BECKHAM Primary Care Physician Delfino ARIAS Attending Unavailable LESLY ZUNIGA Attending Unavailable Delfino ARIAS Attending Unavailable Delfino ARIAS Attending Unavailable Delfino ARIAS Admitting Unavailable Delfino ARIAS Attending Unavailable ESTELITA, Delfino Nation Attending Unavailable ESTELITA, Delfino Nation Attending Unavailable Shaikh Sen MD Primary Care Provider SHAIKH SEN Attending Unavailable SHAIKH SEN Attending Unavailable SHAIKH SEN Attending Unavailable SHAIKH SEN Attending Unavailable Allergies Allergy Classification Reported Allergen(s) Allergy Type Date of Onset Reaction(s) Facility (1 source) No Known Medication Allergies; Translations: [No Known Medication Allergies] Propensity to adverse reactions (disorder) [facility] Repository Medications Current Medications Medication Drug Class(es) Dates Sig (Normalized) Sig (Original) [id number] 200 actuat albuterol 0.09 mg/actuat metered dose inhaler (1 source) beta2-Adrenergic Agonist Start: 3 End: 4 take 2 puff(s) by inhalation every four hours for wheezing albuterol HFA 90 mcg/act inhaler Indications: Moderate persistent asthma without complication (CMS/HCC) Inhale 2 puffs every 4 (four) hours if needed for wheezing 18 g 1 08/31/2023 11/29/2023 Active amLODIPine 10 mg oral tablet (1 source) Dihydropyridine Calcium Channel Lo Start: 3 End: 4 take 1 tablet by mouth in the morning amLODIPine (Norvasc) 10 MG tablet Indications: Hypertension Take 1 tablet (10 mg) by mouth in the morning. 90 tablet 0 08/31/2023 11/29/2023 Active docusate sodium 100 mg oral capsule (3 sources) Start: 1 take 1 capsule by mouth twice daily as needed for constipation Colace 100 mg Cap 100 mg = 1 cap(s), Oral, BID, PRN for constipation, # 20 cap(s), Refills(s) 0 Start Date: 02/22/21 Status: Ordered 30 actuat fluticasone furoate 0.2 mg/actuat / vilanterol 0.025 mg/actuat dry powder inhaler (1 source) Corticosteroid, beta2-Adrenergic Agonist Start: 3 End: 4 take 1 puff(s) by inhalation in the morning Fluticasone Furoate-Vilanterol (Breo Ellipta) 200-25 MCG/ACT aerosol powder Indications: Moderate persistent asthma without complication (CMS/HCC) Inhale 1 puff in the morning. 3 each 1 08/31/2023 02/27/2024 Active ibuprofen 800 mg oral tablet (1 source) Nonsteroidal Anti-inflammatory Drug Start: 4 End: 4 take 1 tablet by mouth three times daily as needed for pain ibuprofen 800 MG tablet Indications: Acute bilateral low back pain without sciatica Take 1 tablet (800 mg) by mouth 3 (three) times a day as needed for mild pain 90 tablet 0 10/05/2023 11/04/2023 Active sildenafil 100 mg oral tablet (2 sources) Phosphodiesterase 5 Inhibitor Start: 4 End: 4 sildenafil (Viagra) 100 MG tablet Indications: Erectile dysfunction, unspecified erectile dysfunction type Take 1 tablet (100 mg) by mouth if needed for erectile dysfunction 30 tablet 2 10/21/2023 01/19/2024 Active Ventolin HFA 90 mcg/inh Aerosol (3 sources) Start: 1 Ventolin HFA 90 mcg/inh Aerosol Refill(s) 0 Start Date: 02/22/21 Status: Ordered zolpidem tartrate 12.5 mg extended release oral tablet (4 sources) gamma-Aminobutyric Acid-ergic Agonist Start: 4 End: 4 zolpidem CR (Ambien CR) 12.5 MG ER tablet Indications: Psychophysiological insomnia Take 1 tablet (12.5 mg) by mouth as needed at bedtime for sleep Do not crush, chew, or split. 30 tablet 2 10/05/2023 01/03/2024 Active Start: 02-22-2021 take 1 tablet by rod th once daily at bedtime as needed for sleep zolpidem 10 mg oral tablet 10 mg = 1 tab(s), Oral, Once a day (at bedtime), PRN for sleep, Refills(s) 0 Start Date: 02/22/21 Status: Ordered Problems Problem Classification Problem Date Documented Da te Episodic/Chronic Abdominal pain (3 sources) Unspecified abdominal pain; Translations: [UNSPECIFIED ABDOMINAL PAIN] Onset: 3 Episodic Anxiety disorders (4 sources) Anxiety; Translations: [Anxiety disorder, unspecified] Onset: 3 02-21-2021 Chronic Asthma (6 sources) Asthma; Translations: [Unspecified asthma, uncomplicated] Onset: 3 Resolved: 3 02-21-2021 Chronic Calculus of urinary tract (8 sources) History of calculus of kidney; Translations: [Ureteric stone] Onset: 3 05-13-2021 Episodic Cardiac dysrhythmias (1 source) Intermittent palpitations; Translations: [Palpitations] Onset: 3 08-31-2023 Episodic Essential hypertension (5 sources) Hypertensive disorder; Translations: [Essential (primary) hypertension] Onset: 2 02-21-2021 Chronic Genitourinary symptoms and ill-defined conditions (1 source) Blood in urine; Translations: [Gross hematuria] Onset: 3 Episodic Hyperplasia of prostate (5 sources) Benign prostatic hypertrophy with outflow obstruction; Translations: [Benign prostatic hyperplasia with lower urinary tract symptoms] Onset: 3 Chronic Miscellaneous mental health disorders (1 source) Psychophysiologic insomnia; Translations: [Psychophysiologic insomnia] Onset: 3 08-31-2023 Chronic Mood disorders (3 sources) Depressive disorder 02-21-2021 Chronic Mood disorders (1 source) Mood disorders; Translations: [DEPRESSION UNSPECIFIED] Onset: 3 Nonspecific chest pain (1 source) Chest pain; Translations: [Other chest pain] Onset: 3 08-31-2023 Episodic Other aftercare (1 source) Other fci (current) drug therapy; Translations: [OTH SHELTER CURRENT DRUG THERAPY] Onset: 3 Episodic Other diseases of kidney and ureters (1 source) Urinary tract obstruction; Translations: [Hydronephrosis with renal and ureteral calculous obstruction] Onset: 3 Episodic Other diseases of kidney and ureters (3 sources) Hydronephrosis 11-19-2022 Episodic Other diseases of kidney and ureters (4 sources) Hydronephrosis with renal and ureteral calculous obstruction; Translations: [HYDRONPHROS RENL AND URETRL CALCUL OBST] Onset: 3 Episodic Other gastrointestinal disorders (3 sources) Constipation 02-21-2021 Episodic Other male genital disorders (4 sources) Impotence; Translations: [Male erectile dysfunction, unspecified] 02-21-2021 Chronic Other male genital disorders (3 sources) 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 Other male genital disorders (1 source) Male erectile dysfunction, unspecified; Translations: [MALE ERECTILE DYSFUNCTION UNS] Onset: 3 Chronic Other male genital disorders (1 source) Induration penis plastica; Translations: [INDURATION PENIS PLASTICA] Onset: 3 Chronic Residual codes; unclassified (3 sources) Insomnia 02-21-2021 Episodic Residual codes; unclassified (1 source) Insomnia, unspecified; Translations: [INSOMNIA UNSPECIFIED] Onset: 3 Episodic Residual codes; unclassified (1 source) Alcoholism; Translations: [Alcohol use disorder] Onset: 3 08-31-2023 Episodic Spondylosis; intervertebral disc disorders; other back problems (1 source) Acute low back pain; Translations: [Acute bilateral low back pain without sciatica] Onset: 4 10-05-2023 Episodic Results Test Name Value Interpretation Reference Range Facility Operative Reporton Operative Report [id number] #1.00CD:127 Normal [facility] Coding Summary.on 12-04-2022 Coding Summary. CD:[id number] Ww+PGhlYWQ+NH6ARFEgE 39pwPDnbV8kN0POSYdQQ ywgQVBQTElOSyIgbmFtZ T0zsPAiBQZz IC8+NG3vAYGbCfbmpTSz a1R3uOO2T99rst9nMAve hEV4LZMjTnQnfcoej6by mVr2XIniEiatIeGh TJNbgW60HUH9pV39Vp52 hSNjsEWbq9anrGc6ThAt WZEfZBA5fTtbZRudj6Lq BNCpD15wbBYao2U5 IGNvbGxhcHNlOyBlbXB0 jC0dCThovcfkb0hmaerd Oga7xo31pZVcb3Q4tGF5 R7FagoN9XTAtkACy AdezaMXNpI9cyaqlv5fm nrsmOpWwMXJzFRd4IQw3 MNNhlMywUnZyFQ27INW2 LXGjfqMbU8CtLTIc uTnlDmQ1o8L2Kw1TM8QG SmcnH6SPAZNXDUhpoRG+ CC66ko47Q1WjIyolVeg2 YLHoISD3gVN6aR5a DJHvAHzur0J7tXL7G8Tn jvQnie1ri7rdTPHxKGjx Y28svPZqq9C9BVBmvIX0 WJQzqBjyJoRigP59 Oyc+HULmhXnne7EjJwhv g2jvc8fwxFo7LfxtFTTx gzWtyVutFSL1a2MkWn4u KQGnqFD1xLF6qE4v NdJvIaK2VSifX257VlOi uGGdIutoX87fV6OwiTC+ LYAvTyb0BJTmwYqzLS1v Q6UrFZFeopuzlIQq sPxaTN7lRZYowjarLHCh cO1fLUPqJ9e9XxNgVsT5 QDfpU8LuHRUnwzfjUh81 yK3jKuCzLkB9NJnh F0TofyH3QIXxuTSwRMow XXM7B94nc1S9TRHeUKTo HVG0hAD4aE1lfDpgwzja bGVmdDsgdmVydGlj GJsoBQtbO440ETNmzCxy PkNvZGluZyBEYXRlOiAg MDMvMjMvMjAyMzwvdGQ+ QYRgHFE9uFohRREi oJZwTWwwNi1toDviwMgx IZ8sSRQgdktbAIVqfV0z SMRwmVCzwBmjQI7mFFLp neniy207PpRpFHA2 HYDwsYPrE4DdqS7wBwEm EXMaHSLyK7CvrAGtOKml N301TOqsXqZ4AWHeezUl W3HtKWAfzDolNcT8 e9Q6Bm7Hk2FljbqiG6Fp nCVsVlUyXqwmSDu8Z3Pw PjwvdHI+HL70RPTnSB66 JSz7BHQ3yRpoXInw CEGxX0ZpfC8iPxIlIJPa ZGRkOyc+PHRhYmxlIHdp ZHRoPScxMDAlJyBzdHls NG4gTo7hUFBpYWIs hHnphRXwFmFgy8rnITDp AJhfKY7uoJsrP3AadRQ1 ZQMcp8q9Do60S59jI3Uc dXA+ELCsrXX6dJM5 wS3pNiGiBzU8QDxjH209 ShGlpSCjRgtpw6ieg2me wIf1WoD4UIHmihHtgGxd EQB7e0LkHq07I29p IHdpZHRoPSIxNSUiIHZh kWraig8wpY2mCx3+PGNv tNL2bFA2bV8vUaFpRzZ3 LAdcD567KtRwyUZf Fuake1ziy2eurZy4MnYt JSRousAecKydAOV7i7Ec Db64R1HjiXsbe5LdNus5 tw45jWUtl6A9dCO5 Q8ZiTTXoyccwxZMbbKof TX8uFOLhpowwJIIdmE7k RHVwD0e8MwUlTcI5KGmz G5BmccN3EOWvwGTf SOLmoLUUbG5xpkbus7hk nwokTvAgEINwQOt0RLs9 SUWudDxbFpCoNWZ0XvZ6 XCU8uIDdcO7fwPdt sbmwfC9wLih+SRJ6oAWh iQWTRL1dVnewzVF+PHRk JHU1sXrtNPwfZMImgI9l PODvU5f9WqSdNcP5 ZKgqD0DyukN4UHLqcOSy YQTidWZDfO4mhmxvt7bi wyboGxFhXQVnLHl6PSv8 LWFsaWduOiBsZWZ0 GnU8UWF1wYSlmP9xiPfe goubmF1uCza+QmlydGgg FEA5HYi5T7JbUlr4JNPl cSaqYN4grQUtEXpb Bq4qdEleuAysTC4vRGBm fasfv842UcNsk2pkERHu dSCxRShlXHC2B97hj7N1 GTZrUCSjPMX3jLB0 jW8paAvcunhceJIuyWpb xhOneHpmJAjyNTfdT278 RBNzjGapZjCdXBo7L2Ec Rdt4QXTquXmzZZ0l cZLeFWcjBm1etCmdpTms BY8dCYMwljgbr653HaBy m0knQLBksDSpNHpfFAN8 A11rg3N3LVWwNSUv SEN2yFG8fU7iaBiusbgz bGVmdDsgdmVydGljYWwt CUypQ873FCTdqNoeUxAu yGw9X8ZzEbk1HNIq bJbpSQ7rvTFkNOxcPo7i lPatzWcpXY5yIRDyjphl a436AdPoy1qrDJUgwOZr IGbtIRL5B74vc7L7 JOUnSCIrRMW9wAN7hC2j bGlnbjogbGVmdDsgdmVy aWirMLdxZMnsN292KWFr cDsnPlBhdGllbnQg CLjfKDt2Z2CwZiviqFO+ NO66FYJzPU54xQVgnKVc k8qcdYp4FoHoENXrZBF5 fJmnLRwwd1CuWKQm N09jiBZfw1B0NXPnhRwq iTHmXyJchWA0yY4eLFjf tpbuu9exwelrJfxik9ib kh67jK86Z04aGDyr ZHRoPSIzMCUiIHZhbGln oc2zxM1qIf5+PGNvbCB3 tHN7jY8lOFNgMzU7TTmx L981HuMeaZOuRjpe l2wjm1oguYp6DvU7QYUb eoNwcPobAXT8a0HpDq24 E61tABxyULApSHEeEGWd JVVqeRjoms8ltX9c Ii8+YGHfhMR6dHO1gY7h BuDvOdT7NFjnD012MbKc iOGxPswyC00qW9FsiPR+ XAFwTxd7RFThmHjg VG8ctIUfAKxgWo5cFNP1 CzQfLpDeBQtoC0DhADWe tnmbbarkoRZ3ZEWaDQMw bI47Qm7hqDfpGCRo vCFYwN3vopijp2yedhlw IkCrNYQfKVp5VZs7TUSq aJxbCxOyDSD1BnP0ONI9 wMJzpP2uuZpommie jW0rM4AdHPUdptnnNf56 iQ1vLvTtHtH8ZVwgWma+ TtOAEHXHP6WgPSnRDVNQ JV68TL67xVXyr2V9 lCQ3S5RySKFprneumcjg fEI1QNOmBHNcyO37tJKi VWpcWm8vw0G4n380OWHp TNVgbG72Ec5nyEzz VHMxwVFYlO5ivldoa9yj ggzfGkVuCYBqMLl7TTu3 IBJmlPjcPhBrTTP9BvW4 WPD0fAVdlY0bhXcg ojpsjX1rCfx+MDMvMTAv CQi7RBgzsVE+PHRkIHN0 yIpsVSbvPRBomN2tYBGk B9h4TjXjKhP7UWix H2CnFRHqkgnjHd29dS7l DhCrPyN8TCnzU9BgwnE5 EXQbfGTsKDtpLWQ0K46q l3D5WJCdLMOfPEV6 sRQ5pG5niCpsalzxbPQx dDsgdmVydGljYWwtYWxp N177UASyvHuyPiC8WCfz OOGoIY25EE64hUVr m8Z4mMG3H8KfGXVrwfkn yiesiIV1PGEuBTTexV60 lLQvZYmvKq7go8Z1v990 CBXrGYVewM34Hh6q sCpsUVJkrACIoO3fyyzo r3pymtqrEeWiJHEzWVd3 FGs5JTEzoHbbLgBlZXS9 WrI3AAQ8nTAjpF6f aMlaiqjuqZ9tHfd+TWFs ZTwvdGQ+RGRwYPH8gIyo HMacDQFcpO7mOGUmB4q7 TmMiStO5DJpdE6Ib CIQuznxiMl53iC4vQtJa YeQ4NMomC8AudfK7GVKh bVCiPTgvRWA9K06xp5X0 XWPqHGEfAID3bZS3 yW8siUyhlniarCJghIzb iiPcpFzdRItiPLgaJ214 BHZcbOkkQiyoAiZKyj7j AM0iQbwtfBQ+PC90 tt52J3FwHstqCmf4YOPu AUV8kFD1oE2iGQInOOqo n5Y5uWT4Z7MiwgIrdb0j p6dvSYGkBOkuV40o cSPqi6N5LVGeeUU0SPYp kXrmPyQkpB80Sky+PGNv lJydy3GpTahal3yrg7me rHs8AdMpGUSjnvJu qCsqEMD2w5ZmDo21M52r IHdpZHRoPSIzMCUiIHZh xQfzap7ohS3vRc7+PGNv mHD0hYG8eA0yCjAn HnF5FFmfM838GgXiwQDg Eavpe4svw4sybFn6VnKe GENoouJrtFopFKZ0v6Bb Ve37X5AedFirs1Op Bda8rt22zUQex0F3uUQ7 K2KxIRMbgaxrhJNdxOvw HT2eVFHyxcvnAJNbhF5e OEPzZ3k6KbOrGxO3 EOeaO1FpcvQ6NXOjwWRg BSKiwCWLnJ1gxusof8gd tarxNkXbSJOfAKd7ELy0 LWFsaWduOiBsZWZ0 DjY3KAK7eODirQ0niLqs wznvaW4qEeo+CLg8m4qy oUNtPY4llDG6EI09GW06 ePRfu4L5gFK0J3Js HZFiqlxesdwteMV2NENr JPTwzD57Es7dyCllPk6v OJIaKGH5ZMJdxQZqU6Tc oZ5oStPfPIDiZSGk A5FefJCuUXudD241JLux BgM2TUQuogWpP7OqUNEl wLbiOeF7l9T9It8WHY30 FF07AB89kDCyt9T6 sBZ8I3HnVOPigdaomgjk mIE7GXUrTUPruE94Ig3u wAaeCu6nDNGfYIU5BSGi vNElB0UzoY5qBtIz PLIhUIFqY8OioUQySGvd K955LXrrPbD3LDTkvqGx P4GuPHMaoCzoYbN3m2H6 Tn8TIe73VP43YV82 vMRrc2C8qTR2L1PsZDRp pzphtynegUY0XRVyOJYh tI24Ms7quNsrTq7zKYRs JEE4RYFtqCDpH3Rz wT6uDiGcEFNxHARcQ8Oi tPOhTPteK013TEqlOeV4 HVErblSjN4PsBZJdtUnh AaK1g2N3Yt4SMPee alz5O1XqXwgnhJF+PC90 AQRsFG50jFUcwVVoa3ey sQf4DqKkVNZwZSU9bNzw JZsqk4WiIAVaH38o jVRmw6I0 (more content not included)... [facility] Consent for Procedure/Surger yon 12-03-2022 Consent for Procedure/Surgery [id number]# 1.00CD:127 [facility] C Urineon 11-29-2022 Bacteria identified Cx [...] R1: This test was performed at: [facility], [address] [place] [address], [address] , , [facility] Comment on above: Performed By: #### [id number] ####[facility] [address] [place] [address] Ambulatory Visit Summaryon 0 11-26-2022 Ambulatory Visit Summary GUZMAN REEVES :1970 Visit Date:11/26/2022 Ambulatory Visit Instructions Your Diagnosis Gross hematuria Tests Performed Urnls Dip Stick Auto w/o Microscopy POC [id number] Your Care Team Attending Physician - LESLY ZUNIGA MD Primary Care Physician - LISA BECKHAM DO This Is Your Medications List albuterol (Ventolin HFA 90 mcg/inh Aerosol) docusate (Colace 100 mg Cap) zolpidem (zolpidem 10 mg oral tablet) Procedures Performed Colonoscopy, Vasectomy. What to do next Scheduled Follow-Up Appointments Thursday 3:45 PM EDT With: ESTELITA DAMON, Delfino Nation Where: [facility] CALCULI, URINARYon 3 2,8 Dihydroxyadenine Normal [facility] Comment on above: Performed By: #### C ALCULI #### [facility] [address] [address] [address] Kaden James Ammonium Acid Urate Normal [facility] Comment on above: Performed By: #### C ALCULI #### [facility] [address] [address] [address] Kaden James Bilirubin Ql (U) Normal [facility] Comment on above: Performed By: #### C ALCULI #### [facility] [address] [address] [address] Kaden James Ca Oxalate Dihydrate Normal [facility] Comment on above: Performed By: #### C ALCULI #### [facility] [address] [address] [address] Kaden James CaHPO4 (Brushite) Normal [facility] Comment on above: Performed By: #### C ALCULI #### [facility] [address] [address] [address] Kaden James Calcium Bilirubinate Normal [facility] Comment on above: Performed By: #### C ALCULI #### [facility] [address] [address] [address] Kaden James Calcium Carbonate Normal [facility] Comment on above: Performed By: #### C ALCULI #### [facility] [address] [address] [address] Kaden James Calcium Oxalate Monohydrate 100 % Normal [facility] Comment on above: Performed By: #### C ALCULI #### [facility] [address] [address] [address] Kaden James Calcium Palmitate Normal [facility] Comment on above: Performed By: #### C ALCULI #### [facility] [address] [address] [address] Kaden James Calcium Phosphate Normal [facility] Comment on above: Performed By: #### C ALCULI #### [facility] [address] [address] [address] Kaden James Calcium Stearate Normal [facility] Comment on above: Performed By: #### C ALCULI #### [facility] [address] [address] [address] Kaden James Carbonate Apatite Normal [facility] Comment on above: Performed By: #### C ALCULI #### [facility] [address] [address] [address] Kaden James Cellular Material Normal [facility] Comment on above: Performed By: #### C ALCULI #### [facility] [address] [address] [address] Kaden James Cholesterol Normal [facility] Comment on above: Performed By: #### C ALCULI #### [facility] [address] [address] [address] Kaden James Color (U) Brown Normal [facility] Comment on above: Performed By: #### C ALCULI #### [facility] [address] [address] [address] Kaden James Comment [facility] Comment on above: Performed By: #### C ALCULI #### [facility] [address] [address] [address] Kaden James Comment Comment Normal [facility] Comment on above: Result Comment: Calc ulus received wet. Wet calculi must be dried before analysis, which delays reporting of results. Leaving calculi wet (such as water, saline, blood, urine) may lead to changes in composition. Performed By: #### C ALCULI #### [facility] [address] [place] [address] Dr. Kaden James Comment: Comment Normal [facility] Comment on above: Result Comment: Enid marroquin questions regarding Calculi Analysis [facility] at: [phone]. Performed By: #### C ALCULI #### [facility] [address] [place] [address] Dr. Kaden James Composition Comment Normal [facility] Comment on above: Result Comment: Perc entage (Represents the % composition) Performed By: #### C ALCULI #### [facility] [address] [place] [address] Dr. Kaden James Cystine Normal [facility] Comment on above: Performed By: #### C ALCULI #### [facility] [address] [place] [address] Dr. Kaden James Disclaimer: Comment Normal [facility] Comment on above: Result Comment: This test was developed and its performance characteristics determined by [facility]. It has not been cleared or approved by the Food and Drug Administration. Performed By: #### C ALCULI #### [facility] [address] [place] [address] Dr. Kaden James Dried Blood Normal [facility] Comment on above: Performed By: #### C ALCULI #### [facility] [address] [place] [address] Dr. Kaden James Drug or Metabolite Normal [facility] Comment on above: Performed By: #### C ALCULI #### [facility] [address] [place] [address] Dr. Kaden James Hydroxyapatite [facility] Comment on above: Performed By: #### C ALCULI #### [facility] [address] [place] [address] Dr. Kaden James Mg NH4 PO4 (Struvite) Normal [facility] Comment on above: Performed By: #### C ALCULI #### [facility] [address] [address] [address] Kaden James MgHPO4 ([facility]) Normal [facility] Comment on above: Performed By: #### C ALCULI #### [facility] [address] [address] [address] Kaden James Other component(s) Normal [facility] Comment on above: Performed By: #### C ALCULI #### [facility] [address] [address] [address] Kaden James PDF . Normal [facility] Comment on above: Performed By: #### C ALCULI #### [facility] [address] [address] [address] Kadne James Photo Comment [facility] Comment on above: Result Comment: Phot ograph will follow under a separate cover Performed By: #### C ALCULI #### [facility] [address] [address] [address] Kaden James Please note: Comment Normal [facility] Comment on above: Result Comment: Calc renetta report will follow via computer, mail or archeology faculty member delivery. Performed By: #### C ALCULI #### [facility] [address] [address] [address] Kaden James Size 1x1 [facility] Comment on above: Result Comment: Mult iple pieces received. Dimensions of the largest piece reported. Performed By: #### C ALCULI #### [facility] [address] [address] [address] Kaden James Sodium Acid Urate Normal [facility] Comment on above: Performed By: #### C ALCULI #### [facility] [address] [address] [address] Kaden James Source Comment [facility] Comment on above: Result Comment: Righ t Ureter Performed By: #### C ALCULI #### [facility] [address] [address] [address] Kaden James Triamterene [facility] Comment on above: Performed By: #### C ALCULI #### [facility] [address] [address] [address] Kaden James Uric Acid Normal [facility] Comment on above: Performed By: #### C ALCULI #### [facility] [address] [address] [address] Kaden James Uric Acid Dihydrate Normal [facility] Comment on above: Performed By: #### C ALCULI #### [facility] [address] [address] [address] Kaden James Weight 22 mg Normal [facility] Comment on above: Performed By: #### C ALCULI #### [facility] [address] [address] [address] Kaden James Xanthine [facility] Comment on above: Performed By: #### C ALCULI #### [facility] [address] [place] [address] Dr. Kaden James Operative Reporton Operative Report [id number] #1.00CD:127 Normal [facility] RAD - CT Reporton 11-24-[address]22 RAD - CT Report [id number] #1.00CD:127 Normal [facility] RAD - MISCon 11-24-2022 RAD - MISC [id number] #1.00CD:127 Normal [facility] Consent for Procedure/Surger yon 11-20-2022 Consent for Procedure/Surgery [id number] #1.00CD:127 Normal [facility] Screenson 11-20-2022 Screens [id number] #1.00CD:127 Normal [facility] Patient Educationon 11-20-19 Patient Education Urology Dietary [...] Rhubarb. ? Beets. ? Potato chips and [place] fries. ? Nuts. ? If you regularly take a diuretic medicine, make sure to eat at least 1?2 fruits or vegetables high in potassium each day. These include: ? Avocado. ? Banana. ? Maribel, prune, carrot, or tomato juice. ? Baked [...] dr (more content not included)... Normal [facility] Urology Office/Clinic Noteon 11-19-2022 Urology Office/Clinic Note Chief Complaint Follow up to [facility] HPI Staff Pt is here today for follow up to [facility] due to right flank and abdominal [...] and ureteral calculous obstruction) Follow up to [facility] ER visit on 11/16/22 due to [...] IPSS 12. Follow-up With When Contact Information ESTELITA DAMON, Delfino Nation, [facility] [address], [place] [address]- Additional Instructions: x-ray, schedule tentative laser litho [...] (at bedti (more content not included)... Normal [facility] Comment on above: Result Comment: Elec tronically Signed By: Delfino ARIAS MD\.br\Date and Time Signed: 11/19/22 14:25 EST\.br\Electronically Co-Signed By: Jyoti Morales\.br\Date and Time Co-Signed: 11/19/22 14:24 EST ED Note-Physicianon 11-19-19 ED Note-Physician [id number] #1.00CD:127 Normal [facility] CBC AUTO DIFFon 11-16-2022 BASO # 0.1 103/ul Normal 0.0-0.1 [facility] Comment on above: Performed By: #### C BC #### [facility] [address] [address] [address] Kaden James Basophils/100 WBC (Bld) 0.6 % Normal 0.2-2.0 [facility] Comment on above: Performed By: #### C BC #### [facility] [address] [address] [address] Kaden James EO # 0.1 103/ul Normal 0.0-0.7 [facility] Comment on above: Performed By: #### C BC #### [facility] [address] [place] [address] Dr. Kaden James Eosinophils/100 WBC (Bld) 1.4 % Normal 0.9-7.0 [facility] Comment on above: Performed By: #### C BC #### [facility] [address] [place] [address] Dr. Kaden James Erythrocyte distribution width (RBC) [Ratio] 12.2 % Normal 11.0-15.0 [facility] Comment on above: Performed By: #### C BC #### [facility] [address] [place] [address] Dr. Kaden James Hematocrit (Bld) [Volume fraction] 44.6 % Normal 42.0-54.0 [facility] Comment on above: Performed By: #### C BC #### [facility] [address] [place] [address] Dr. Kaden James Hemoglobin (Bld) [Mass/Vol] 15.5 g/dL Normal 14.0-18.0 [facility] Comment on above: Performed By: #### C BC #### [facility] [address] [place] [address] Dr. Kaden James IG # 0.03 10e3/ul Normal 0.00-0.03 [facility] Comment on above: Performed By: #### C BC #### [facility] [address] [place] [address] Dr. Kaden James IG % 0.3 % Normal 0.0-0.5 [facility] Comment on above: Performed By: #### C BC #### [facility] [address] [place] [address] Dr. Kaden James LYMPH # 2.6 103/ul Normal 1.2-3.8 [facility] Comment on above: Performed By: #### C BC #### [facility] [address] [place] [address] Dr. Kaden James Lymphocytes/100 WBC (Bld) 25.6 % Normal 20.5-60.0 [facility] Comment on above: Performed By: #### C BC #### [facility] [address] [place] [address] Dr. Kaden James MANUAL DIFF REQ NO Normal [facility] Comment on above: Performed By: #### C BC #### [facility] [address] [place] [address] Dr. Kaden James MCH (RBC) [Entitic mass] 31.9 pg Normal 25.9-34.0 [facility] Comment on above: Performed By: #### C BC #### [facility] [address] [place] [address] Dr. Kaden James MCHC (RBC) [Mass/Vol] 34.8 g/dL Normal 29.9-35.2 [facility] Comment on above: Performed By: #### C BC #### [facility] [address] [place] [address] Dr. Kaden James MCV (RBC) [Entitic vol] 91.8 fL Normal 80.0-94.0 [facility] Comment on above: Performed By: #### C BC #### [facility] [address] [place] [address] Dr. Kaden James MONO # 0.7 103/ul Normal 0.3-0.8 [facility] Comment on above: Performed By: #### C BC #### [facility] [address] [place] [address] Dr. Kaden James Monocytes/100 WBC (Bld) 6.8 % Normal 1.7-12.0 [facility] Comment on above: Performed By: #### C BC #### [facility] [address] [place] [address] Dr. Kaden James NEUT # 6.6 103/ul Critically high 1.4-6.5 [facility] Comment on above: Performed By: #### C BC #### [facility] [address] [place] [address] Dr. Kaden James Neutrophils/100 WBC (Bld) 65.3 % Normal 43.0-75.0 [facility] Comment on above: Performed By: #### C BC #### [facility] [address] [place] [address] Dr. Kaden James Platelet mean volume (Bld) [Entitic vol] 9.2 fL Critically low 9.5-13.5 [facility] Comment on above: Performed By: #### C BC #### [facility] [address] [place] [address] Dr. Kaden James PLT 393 103/ul Normal 150-450 [facility] Comment on above: Performed By: #### C BC #### [facility] [address] [place] [address] Dr. Kaden James RBC 4.86 106/ul Normal 4.70-6.10 [facility] Comment on above: Performed By: #### C BC #### [facility] [address] [place] [address] Dr. Kaden James WBC 10.1 103/ul Normal 4.0-11.0 [facility] Comment on above: Performed By: #### C BC #### [facility] [address] [place] [address] ABD/PELVIS WO CONon [...] HERSON MAGANA Date: 2022-11-16 09:10 Normal [facility] URINE PROFILEon 3 Bilirubin Ql (U) Negative Normal NEGATIVE [facility] Comment on above: Performed By: #### Agus HILL UMICRO #### [facility] [address] [address] [address] Kaden James Clarity (U) CLEAR Normal CLEAR [facility] Comment on above: Performed By: #### Agus HILL UMICRO #### [facility] [address] [place] [address] Dr. Kaden James Color (U) YELLOW Normal YELLOW [facility] Comment on above: Performed By: #### Agus HILL UMICRO #### [facility] [address] [address] [address] Kaden James ERUAHD A micrscopic examination will be performed if indicated. Normal [facility] Comment on above: Performed By: #### Agus HILL UMICRO #### [facility] [address] [address] [address] Kaden James Glucose Ql (U) Negative Normal NEGATIVE [facility] Comment on above: Performed By: #### Agus HILL UMICRO #### [facility] [address] [address] [address] Kaden James Hemoglobin Ql (U) SMALL Abnormal NEGATIVE [facility] Comment on above: Performed By: #### Agus HILL UMICRO #### [facility] [address] [address] [address] Kaden James Ketones Ql (U) Negative Normal NEGATIVE [facility] Comment on above: Performed By: #### Agus HILL UMICRO #### [facility] [address] [address] [address] Kaden James LEUKOCYTES Negative Normal NEGATIVE [facility] Comment on above: Performed By: #### Agus HILL UMICRO #### [facility] [address] [place] [address] Dr. Kaden James Nitrite Ql (U) Negative Normal NEGATIVE [facility] Comment on above: Performed By: #### Agus HILL UMICRO #### [facility] [address] [place] [address] Dr. Kaden James pH (U) 7.0 [pH] Normal 5-9 [facility] Comment on above: Performed By: #### Agus HILL UMICRO #### [facility] [address] [place] [address] Dr. Kaden Jamse SPEC GRAVITY 1.020 Normal 1.005-<=1.[address] [facility] Comment on above: Performed By: #### Agus HILL UMICRO #### [facility] [address] [place] [address] Dr. Kaden James UA PROTEIN Negative Normal NEGATIVE/ TRACE [facility] Comment on above: Performed By: #### Agus HILL UMICRO #### [facility] [address] [place] [address] Dr. Kaden James UR MICRO IND INDICATED Normal [facility] Comment on above: Performed By: #### Agus HILL UMICRO #### [facility] [address] [place] [address] Dr. Kaden James Urobilinogen Qn (U) 0.2 {Deonna'U}/dL Normal 0.2 - 1. 0 [facility] Comment on above: Performed By: #### Agus HILL UMICRO #### [facility] [address] [place] [address] Dr. Kaden James PROF CHEM 8 (BAS METB)on Anion gap [Moles/Vol] 11.3 mmol/L Normal Th [facility] Comment on above: Performed By: #### B MP #### [facility] [address] [place] [address] Dr. Kaden James Calcium [Mass/Vol] 9.2 mg/dL Normal 8.5-10.1 [facility] Comment on above: Performed By: #### B MP #### [facility] [address] [address] [address] Kaden James Chloride [Moles/Vol] 109 mmol/L Critically high 98-107 [facility] Comment on above: Performed By: #### B MP #### [facility] [address] [address] [address] Kaden James CO2 [Moles/Vol] 29.6 mmol/L Normal 21.0-32.0 [facility] Comment on above: Performed By: #### B MP #### [facility] [address] [place] [address] Dr. Kaden James Creatinine [Mass/Vol] 1.48 mg/dL Critically high 0.70-1.30 [facility] Comment on above: Performed By: #### B MP #### [facility] [address] [place] [address] Dr. Kaden James EGFR-AF SOUTH AFRICAN 60 mL/min/1.73m2 Normal >=60 [facility] Comment on above: Performed By: #### B MP #### [facility] [address] [place] [address] Dr. Kaden James EGFR-NON AF SOUTH AFRICAN 50 mL/min/1.73m2 Critically low >=60 [facility] Comment on above: Performed By: #### B MP #### [facility] [address] [address] [address] Kaden James Glucose [Mass/Vol] 112 mg/dL Critically high 74-106 [facility] Comment on above: Performed By: #### B MP #### [facility] [address] [place] [address] Dr. Kaden James Potassium [Moles/Vol] 3.9 mmol/L Normal 3.5-5.1 [facility] Comment on above: Performed By: #### B MP #### [facility] [address] [place] [address] Dr. Kaden James Sodium [Moles/Vol] 146 mmol/L Critically high 136-145 [facility] Comment on above: Performed By: #### B MP #### [facility] [address] [place] [address] Dr. Kaden James Urea nitrogen [Mass/Vol] 13.0 mg/dL Normal 7.0-18.0 [facility] Comment on above: Performed By: #### B MP #### [facility] [address] [place] [address] Dr. Kaden James Urea nitrogen/Creatinine [Mass ratio] 8.8 mg/mg Normal [facility] Comment on above: Performed By: #### B MP #### [facility] [address] [place] [address] Dr. Kaden James URINE MICROSCOPIC ONLYon BACTERIA NONE SEEN Normal NONE SEEN [facility] Comment on above: Performed By: #### E RUR UMICRO #### [facility] [address] [place] [address] Dr. Kaden James Bacteria identified Cx Nom (U) NOT INDICATED Normal [facility] Comment on above: Performed By: #### E RUR, UMICRO #### [facility] [address] [place] [address] Dr. Kaden James CAST NONE SEEN Normal NONE SEEN [facility] Comment on above: Performed By: #### E RUR, UMICRO #### [facility] [address] [place] [address] Dr. Kaden James Crystals LM Nom (Urine sed) NONE SEEN Normal NONE SEEN [facility] Comment on above: Performed By: #### E RUR, UMICRO #### [facility] [address] [place] [address] Dr. Kaden James Epithelial cells LM Ql (Urine sed) RARE Normal NONE SEEN /RARE [facility] Comment on above: Performed By: #### E RUR, UMICRO #### [facility] [address] [place] [address] Dr. Kaden James MUCOUS TRACE Abnormal NONE SEEN [facility] Comment on above: Performed By: #### E RUR, UMICRO #### [facility] [address], [place] [address] Dr. Kaden James RBC 2-5 Abnormal 0-2 [facility] Comment on above: Performed By: #### E ELIZABETH HILLRO #### [facility] [address], [place] [address] Dr. Kaden James WBC 0-2 Abnormal NONE SEEN [facility] Comment on above: Performed By: #### E ELIZABETH HILLRO #### [facility] [address], [place] [address] Dr. Kaden James Vital Signs Date Time Vital Sign Value Performing Clinician Sonam correa 11-19-2022 13:39-0500 Blood Pressure Location Delfino ARIAS [facility] 11-19-2022 13:39-0500 Diastolic blood pressure 97 mm[Hg] Delfino ARIAS [facility] 11-19-2022 13:39-0500 Heart rate 69 /min Delfino ARIAS [facility] 11-19-2022 13:39-0500 Systolic blood pressure 150 mm[Hg] Delfino ARIAS [facility] Encounters Encounter Date Encounter Type Care Provider Facility Start: 12-14-2023 End: 12-14-2023 ambulatory ROWLAND FAWWAD Not Available Start: 12-03-2023 End: 12-03-2023 ambulatory [facility] FAWWAD Not Available Start: 11-04-2023 End: 11-04-2023 ambulatory [facility] FAWWAD Not Available Start: 10-21-2023 Telephone encounter [facility] Dupont [facility] Comment on above: Med Refill (VIAGRA R EFILL) Start: 08-31-2023 End: 08-31-2023 ambulatory [facility] FAWWAD Not Available Start: 04-06-2023 ambulatory Delfino ARIAS Facili ty:[facility] Start: 12-09-2022 ambulatory Delfino Nieves ty:[facility] Start: 12-05-2022 End: 12-06-2022 ambulatory Delfino ARIAS Facility:[id number] Start: 11-26-2022 End: 11-27-2022 ambulatory Delfino ARIAS [place] [place] Start: 11-26-2022 End: 11-27-2022 ambulatory LESLY ZUNIGA Facility: [place] Start: 11-26-2022 End: 11-26-2022 Lab Drop off Delfino ARIAS [facility] Start: 11-26-2022 End: 11-26-2022 Patient encounter procedure LESLY ZUNIGA [facility] Start: 11-20-2022 End: [address] DELFINO ARIAS . Facility: Start: 11-19-2022 End: 11-20-2022 ambulatory Delfino ARIAS Facility:[facility] Start: 11-19-2022 End: 11-19-2022 Patient encounter procedure Delfino ARIAS [facility] Start: 11-16-2022 End: 11-16-2022 ambulatory TIM WEAVER Facility: Procedures Date Procedure Procedure Detail Performing Clinician Start: 10-19-2023 Colonoscopy Florentin galan MA Colonoscopy Delfino ARIAS Vasectomy Delfino ARIAS Plan of Treatment Date Care Activity Detail Author Start: 10-19-2033 Screening for malign ant neoplasm of colon [facility] Start: 03-13-2024 Influenza vaccination Influenza Vacc ine (#1) [facility] Comment on above: Postponed from 05/15 (Patient Refused) Start: 1970 Screening for malign ant neoplasm of colon [facility] Healthcare Immunizations Immunization Date Immunization Notes Care Provider Tom mcmullen 06-15-2018 influenza virus vaccine, unspecified formulation Delfino ARIAS [facility] 06-15-2018 Influenza, injectabl e, Madin [place] Canine Kidney, quadrivalent with preservative Florentin Dupont MA [facility] Payers Date Payer Category Payer Unknown [employer] [id number] 2022-Present [address] [address] [place] [address] [id number] 2022 Unknown [id number] 1970 Unknown [id number] 3 1968 Unknown [id number] [id number] 3 1968 Unknown [id number] [id number] 7 1968 Unknown [id number] [id number] 7 1968 Unknown [id number] [id number] 7 1968 Unknown [id number] [id number] 7 1968 Unknown [id number] [id number] 7 1968 Unknown [id number] [id number] 7 1968 Unknown [id number] [id number] 7 1968 Unknown [id number] [id number] 59 1968 Unknown [id number] [id number] 59 1968 Unknown [id number] [id number] 59 1968 Unknown [id number] [id number] 59 1959 Unknown [id number] Social History Date Type Detail Facility Start: 11-19-2022 End: 08-31-2023 Tobacco smoking status Never smoked tobacco (finding) [facility] Tobacco smoking status Never [facility] Start: 08-31-2023 Sex Assigned At Male [facility] Start: 08-31-2023 Tobacco use and exposure Smokeless tobacco non-user [facility] Start: 09-29-2023 Alcohol intake Current drinke r of alcohol (finding) [facility] Start: 08-31-2023 End: 09-29-2023 Alcohol intake [facility] Start: 1970 Sex Assigned At Not on file [facility] NEGATED: Highlighted rowStart: NINF History of tobacco use Passive smoker [facility] Functional Status Date Assessment Result Facility 11-19-2022 Functional Status N/A [facility] Telephone encounter Note 10-21-2023 Telephone Encounter - Shaikh Mckinley MD - 10/21/2023 2:22 PM EST Note Date & Type Note Facility 10-21-2023 Telephone encount er Note Prescription called in for the patient. [facility] Note 10-21-2023 Telephone Encounter - Shaikh Mckinley MD - 10/21/2023 2:22 PM EST Note Date & Type Note Facility 10-21-2023 Miscellaneous Notes Formattin g of this note might be different from the original. Prescription called in for the patient. documented in this encounter [facility] Clinical Note 11-20-2022 Note Date & Type Note Facility 11-20-2022 Note OP Note OPERATION DATE: 11/20/2022 PREOPERATIVE DIAGNOSIS: Retained right ureteral calculus. POSTOPERATIVE DIAGNOSIS: Retained right ureteral calculus, plus right ureteral stricture. PROCEDURE: 1. Cystoscopy. 2. Right rigid ureteral dilation. 3. Right ureteroscopy. 4. Holmium laser lithotripsy of very dense ureteral calculus 5. Stone basket extraction of ureteral calculus. 6. Placement of 6-Liberian variable length right ureteral stent. ANESTHESIA: General [...] usual fashion. I started by passing a 22-Liberian Olympus cystoscope per urethra and into the [...] kidney. I then used an 8 and 10-Liberian rigid dilator to dilate the distal ureter. [...] into the bladder. I then slid a 6-Liberian variable length [employer] extermination supervisor ureteral stent over the wire, up into the kidney. The wire was removed and there were good curls in the kidney and in the bladder. The bladder was drained of its contents and the scope was then removed. He was then transferred to a gurney bed and wheeled to PACU in stable condition. [facility] Discharge instructions 11-19-2022 Note Date & Type [...] include: ?Spinach. ?Rhubarb. ?Beets. ?Potato chips and citizen of [place] fries. ?Nuts. If you regularly take a diuretic medicine, make sure to eat at least 1 2 fruits or vegetables high in potassium each day. These include: ?Avocado. ?Banana. ?Maribel, prune, carrot, or tomato juice. ?Baked potato. [...] Casseroles. Pizza. Lasagna. Frozen meals. Potato chips. Liberian fries. Summary You can reduce your risk [...] 12/26/2011 Document Revised: 12/21/2019 Document Reviewed: 08/11/2017 [employer] Patient Education 2020 [employer]. Follow Up Care 11/18/2022 14:59:23 With:Delfino ARIAS MD, URL Address: [facility] [address], [place] [address]- When: Unknown [facility] e-SENS Evaluation + Plan note Note Date & Type Note Facility Evaluation + Plan note No data available for this section [facility] [place] e-SENS Evaluation + Plan note Note Date & Type Note Facility Evaluation + Plan note Future Appointments Appointment Date:12/09/2022 03:45:00 PM Scheduled Provider:Delfino ARIAS MD Location:[facility] Appointment Type:URO Procedure 15 min [facility] e-SENS Evaluation + Plan note Note Date & Type Note Facility Evaluation + Plan note Future Appointments Appointment Date:12/09/2022 03:45:00 PM Scheduled Provider:Delfino ARIAS MD Location:[facility] Appointment Type:URO Procedure 15 min Diagnostic Tests PendingUrine Culture 11/26/22 [facility] Evaluation note Note Date & Type Note Facility Evaluation note Diagnosis Erectile dysfunction, unspecified erectile dysfunction type- Primary documented in this encounter [facility] Discharge instructions Note Date & Type Note Facility Hospital Discharge instructions No data available for this section [facility] [place] Progress note Note Date & Type Note Facility Progress note No data available for this section [facility] LoginRadius Summary Purpose Family History No Family History Records FoundNo Family History Records FoundNo Family History Records Found Advance Directives No Advanced Directives Records FoundNo Advanced Directives Records FoundNo Advanced Directives Records Found Additional Source Comments Patient Care team informatio n (unrecognized section and content) Change Release Manager Relationship Specialty Start Date End Date Shaikh Sen MD PCP - General Internal Medicine 09/14/22 (unrecognized sect ion and content) No Status Records FoundNo Status Records FoundNo Status Records Found INFORMATION SOURCE (unrecogn ized section and content) DATE CREATED AUTHOR 11/26/2022 [facility] DATE CREATED AUTHOR AUTHOR'S ORGANIZ ATION 12/25/2022 [facility] DATE CREATED AUTHOR AUTHOR'S ORGANIZ ATION 12/15/2023 [facility] Reason for Visit (unrecogniz ed section and content) Reason Onset Date Comments Med Refill 10/21/2023 [facility] REFILL FOR RECORDS PERTAINING TO PATIENTS WHO ARE [...] BE BASED ON THE PRIMARY CLINICAL RECORDS. [employer] provides no warranty or guarantee of the accuracy or completeness of information in this document.
--- NOTE | 2023-12-16 07:32 | XR_ITS ---
The [address] [address] Patient Name: RONNY REEVES MRN: [id number] date: 1970 Sex: M Assigned Patient Location: ER Current Patient Location: ER Accession/Order Number: [id number] Exam Date: 12/16/2023 07:40 Report Date: 12/16/2023 08:05 At the request of: TIM WEAVER Procedure: XR hip LT min 2V PROCEDURE: XR hip LT min 2V HISTORY: Atraumatic pain ; left hip and leg pain COMPARISON: CT abdomen pelvis 11/16/2022 FINDINGS: BONES:Small degenerative osteophytes projecting from anterior superior margin of acetabulum. No fracture, dislocation, or significant joint space narrowing. SOFT TISSUES:Chronic small separate ossification lateral to the roof of the acetabulum favoring heterotopic bone formation as sequela of remote injury. EFFUSION:None visible. OTHER: Negative. XR/XR hip LT min 2V IMPRESSION: 1. Mild degenerative changes. 2. No acute abnormality. Electronically authenticated by: TAMMI ARIAS Date: 12/16/2023 08:05
--- NOTE | 2023-12-16 07:32 | XR_ITS ---
The [address] [address] Patient Name: RONNY REEVES MRN: [facility]:[id number] date: 1970 Sex: M Assigned Patient Location: ER Current Patient Location: ER Accession/Order Number: [id number] Exam Date: 12/16/2023 07:40 Report Date: 12/16/2023 08:02 At the request of: TIM WEAVER Procedure: XR lumbar spine 2-3V EXAMINATION: XR lumbar spine 2-3V HISTORY: Atraumatic pain ; low back pain radiating into left leg. COMPARISON: CT abdomen pelvis 11/16/2022 FINDINGS: BONES: Mild degenerative facet arthropathy L3-4 through L5-S1. No fracture or spondylolisthesis. DISC SPACES: Mild narrowing L2-3 through L5-S1. PARASPINOUS: Negative. No paraspinous abnormality is seen. OTHER: Negative. XR/XR lumbar spine 2-3V IMPRESSION: 1. Suspect multilevel mild degenerative disc disease. 2. Mild degenerative facet arthropathy of lower lumbar spine. 3. No appreciable acute abnormality. Electronically authenticated by: TAMMI ARIAS Date: 12/16/2023 08:02
--- NOTE | 2023-12-16 07:33 | ED_ITS ---
HPI - Extremity Problem General Chief complaint: Extremity Problem, Nontraumatic Stated complaint: HIP PAIN Time Seen by Provider: 12/16/23 07:17 Source: patient Mode of arrival: Wheelchair Limitations: physical limitation History of Present Illness HPI Narrative: 53-year-old male presents to the emergency department for clicking in his left hip which has been going on for a few days. There was no trauma. He is also been having some back issues for about 3 months and has been seeing a chiropractor. He states the chiropractor straightened out his back. He has not had weakness or numbness in the legs. He saw his PCP who prescribed him oxycodone. Related Data Home Medications ?Medication ?Instructions ?Recorded ?Confirmed albuterol sulfate 90 mcg/actuation 1 inh inhalation Q4H PRN SOB 06/24/23 07/01/23 aerosol inhaler amlodipine 10 mg tablet 10 mg PO DAILY 06/24/23 07/01/23 diphenhydramine HCl 25 mg capsule 12.5 mg PO QPM PRN insomnia 06/24/23 07/01/23 (Benadryl) fluticasone furoate 100 1 inh inhalation DAILY 06/24/23 06/24/23 mcg-vilanterol 25 mcg/dose inhalation powder (Breo Ellipta) sildenafil 100 mg tablet (Viagra) 100 mg PO DAILY PRN erectile 06/24/23 07/01/23 dysfunction tizanidine 4 mg capsule 4 mg PO Q8H 06/24/23 07/01/23 zolpidem 10 mg tablet 10 mg PO .HS PRN insomnia 06/24/23 07/01/23 methocarbamol 750 mg tablet 750 mg PO Q8H 12/16/23 12/16/23 oxycodone 5 mg tablet 5 mg PO 12/16/23 prednisone 20 mg tablet mg 12/16/23 zolpidem 12.5 mg tablet,extended 12.5 mg PO .QHS 12/16/23 12/16/23 release,multiphase Previous Rx's ?Medication ?Instructions ?Recorded etodolac 300 mg capsule 300 mg PO Q8H PRN pain #20 caps 12/16/23 Allergies Allergy/AdvReac Type Severity Reaction Status Date / Time No Known Drug Allergies Allergy Verified 07/01/23 08:07 Review of Systems ROS Narrative A ten point review of systems is negative except as noted above. [facility] Medical History (Updated 12/16/23 @ 08:21 by Valentino Carmen MD) Hemorrhoids ?K64.9 - Unspecified hemorrhoids (ICD-10) Loose bowel movements ?R19.5 - Other fecal abnormalities (ICD-10) Kidney stones ?N20.0 - Calculus of kidney (ICD-10) Nasal fracture ?S02.2XXA - Fracture of nasal bones, initial encounter for closed fracture (ICD-10) Depressive disorder ?F32.A - Depression, unspecified (ICD-10) Situational anxiety ?F41.8 - Other specified anxiety disorders (ICD-10) Insomnia ?G47.00 - Insomnia, unspecified (ICD-10) Circadian rhythm sleep disorder ?G47.20 - Circadian rhythm sleep disorder, unspecified type (ICD-10) Otitis media ?H66.90 - Otitis media, unspecified, unspecified ear (ICD-10) Asthma ?J45.909 - Unspecified asthma, uncomplicated (ICD-10) Irritable bowel syndrome ?K58.9 - Irritable bowel syndrome without diarrhea (ICD-10) Constipation ?K59.00 - Constipation, unspecified (ICD-10) Dermatitis ?L30.9 - Dermatitis, unspecified (ICD-10) Cervicalgia ?M54.2 - Cervicalgia (ICD-10) Low back pain ?M54.50 - Low back pain, unspecified (ICD-10) Erectile dysfunction ?N52.9 - Male erectile dysfunction, unspecified (ICD-10) Hypertension ?I10 - Essential (primary) hypertension (ICD-10) Surgical History (Updated 06/24/23 @ 12:59 by Kathy Santiago RN) H/O colonoscopy ?Z98.890 - Other specified postprocedural states (ICD-10) History of vasectomy ?Z98.52 - Vasectomy status (ICD-10) Family History (Updated 06/24/23 @ 13:00 by Kathy Santiago RN) Other Family history of diabetes mellitus Family history of hypertension Respiratory disorder Social History (Updated 06/24/23 @ 13:01 by Kathy Santiago, CLAUDIO) Within the past year, how often did you have a drink containing alcohol: 2-4 times a month Within the past year, how many standard drinks containing alcohol did you have on a typical day: 1 or 2 Within the past year, how often did you have six or more drinks on one occasion: never Total score: 0 Score interpretation: A score less than 4 is consistent with normal alcohol consumption. Smoking status: Never smoker Second hand tobacco smoke exposure: No Non-prescribed substance use: cannabis (any form) Previous occupational history: [employer] Known occupational exposures/hazards: No Highest level of school completed/degree received: Associate degree: occupational, technical, vocational program Exam Narrative Exam Narrative: Nurses note and vital signs reviewed and patient is not hypoxic. General: The patient appears well and in no apparent distress. Patient is resting comfortably on cart. Skin: Warm, dry, no pallor noted. There is no rash noted. Head: Normocephalic, atraumatic Eye: Normal conjunctiva, no drainage Ears, Nose, Mouth, and Throat: oral mucosa is moist. Nares patent. Cardiovascular: Regular Rate and Rhythm Respiratory: Patient is in no distress, no accessory muscle use, lungs are clear to auscultation, no wheezing, rales or rhonchi Back: No bruise or rash or palpable tenderness GI: Soft and nontender Musculoskeletal: The left hip is not bruised or swollen. With passive range of motion I do not appreciate any clicking sensation. The patient states it is not happening now. The hip has full range of motion. No swelling in his leg. Neurological: A&O, normal speech, motor strength intact in his lower extremity Psychiatric: Cooperative Constitutional Vital Signs, click to edit/add: Last Vital Signs Temp 98.1 F 12/16/23 07:19 Pulse 79 12/16/23 07:19 Resp 16 12/16/23 07:19 BP 157/98 H 12/16/23 07:19 Pulse Ox 97 12/16/23 07:19 O2 Del Method Room Air 12/16/23 07:19 Course Vital Signs Vital signs: Vital Signs Temperature 98.1 F 12/16/23 07:19 Pulse Rate 79 12/16/23 07:19 Respiratory Rate 16 12/16/23 07:19 Blood Pressure 157/98 H 12/16/23 07:19 Pulse Oximetry 97 12/16/23 07:19 Oxygen Delivery Method Room Air 12/16/23 07:19 Temperature 98.1 F 12/16/23 07:19 Pulse Rate 79 12/16/23 07:19 Respiratory Rate 16 12/16/23 07:19 Blood Pressure 157/98 H 12/16/23 07:19 Pulse Oximetry 97 12/16/23 07:19 Oxygen Delivery Method Room Air 12/16/23 07:19 MDM - Extremity (Nontraumatic) MDM Narrative Medical decision making narrative: X-ray findings were discussed with the patient. He is already on oxycodone and a muscle relaxer and has physical therapy arranged. He was prescribed anti-inflammatory and given IM Toradol here. Findings were discussed thoroughly with the patient. Differential Diagnosis Differential diagnosis: Likely other (Degenerative disc disease, arthritis, muscle strain) Discharge Plan Discharge Stand Alone Forms: Portal Instructions Chief Complaint: Extremity Problem, Nontraumatic Clinical Impression: Low back pain, Acute pain of left hip Patient Disposition: Home, Self-Care Time of Disposition Decision: 08:21 Condition: Good Mode of Transportation: Private Vehicle Prescriptions / Home Meds: New etodolac 300 mg capsule 300 mg PO Q8H PRN (Reason: pain) Qty: 20 0RF No Action methocarbamol 750 mg tablet 750 mg PO Q8H oxycodone 5 mg tablet 5 mg PO prednisone 20 mg tablet zolpidem 12.5 mg tablet,ext release multiphase 12.5 mg PO .QHS albuterol sulfate 90 mcg/actuation HFA aerosol inhaler 1 inh inhalation Q4H PRN (Reason: SOB) diphenhydramine HCl [Benadryl] 25 mg capsule 12.5 mg PO QPM PRN (Reason: insomnia) Rx Instructions: orally every 3 hours; amlodipine 10 mg tablet 10 mg PO DAILY fluticasone furoate-vilanterol [Breo Ellipta] 100-25 mcg/dose blister with device 1 inh inhalation DAILY tizanidine 4 mg capsule 4 mg PO Q8H zolpidem 10 mg tablet 10 mg PO .HS PRN (Reason: insomnia) sildenafil [Viagra] 100 mg tablet 100 mg PO DAILY PRN (Reason: erectile dysfunction) Rx Instructions: administer 30 minutes to 4 hours before activity Print Language: Beninese Instructions: Acute Low Back Pain (ED), Hip Pain (ED) Referrals: Shaikh Sen MD [Primary Care Provider] - 1 week
[2023-12-16] MEDS: KETOROLAC TROMETHAMINE 60 MG/2 ML VIAL IM (08:34)
== END 2023-12-16 08:40 | disposition home or self-care (01) ==
PROVIDERS: Emergency Provider Emergency Medicine; PCP Internal Medicine
DX: M25.552 Pain in left hip (principal); M54.50 Low back pain, unspecified; F32.A Depression, unspecified; G47.00 Insomnia, unspecified; J45.909 Unspecified asthma, uncomplicated; K58.9 Irritable bowel syndrome, unspecified; N52.9 Male erectile dysfunction, unspecified; I10 Essential (primary) hypertension; F12.90 Cannabis use, unspecified, uncomplicated; Z98.890 Other specified postprocedural states; Z79.899 Other long term (current) drug therapy; Z87.442 Personal history of urinary calculi; Z98.52 Vasectomy status
CPT/HCPCS: 72100; 73502; 96372; 99284

== ENCOUNTER 2023-12-17 10:27 | Emergency (ER) | payer OTHER, SELFPAY ==
[2023-12-17 10:30] VITALS: BP 153/95; PULSE 83; TEMP 36.7; O2SAT 97; BMI 24.1
--- NOTE | 2023-12-17 11:39 | ED.EXTPRO1 ---
HPI - Extremity Problem General Chief complaint: Extremity Problem, Nontraumatic Stated complaint: HIP PAIN, SWELLING IN FEET Time Seen by Provider: 12/17/23 11:25 Source: patient Mode of arrival: Wheelchair Limitations: no limitations and physical limitation History of Present Illness HPI Narrative: This patient is here complaining of left hip pain. He was seen here yesterday but is having breakthrough pain. He is not having a bowel or bladder incontinence or dysfunction. He says the pain is in his left hip that radiates down the anterior thigh across the knee down to his great toe. He describes it as a fiery burning type of pain. X-rays show degenerative changes yesterday. He has not seen pain management, orthopedics or neurosurgery. He has not had previous trauma or recent surgery. He is not running a fever. He is not on any steroids. Related Data Home Medications ?Medication ?Instructions ?Recorded ?Confirmed albuterol sulfate 90 mcg/actuation 1 inh inhalation Q4H PRN SOB 06/24/23 12/17/23 aerosol inhaler amlodipine 10 mg tablet 10 mg PO DAILY 06/24/23 12/17/23 diphenhydramine HCl 25 mg capsule 12.5 mg PO QPM PRN insomnia 06/24/23 07/01/23 (Benadryl) fluticasone furoate 100 1 inh inhalation DAILY 06/24/23 06/24/23 mcg-vilanterol 25 mcg/dose inhalation powder (Breo Ellipta) sildenafil 100 mg tablet (Viagra) 100 mg PO DAILY PRN erectile 06/24/23 07/01/23 dysfunction tizanidine 4 mg capsule 4 mg PO Q8H 06/24/23 07/01/23 zolpidem 10 mg tablet 10 mg PO .HS PRN insomnia 06/24/23 12/17/23 methocarbamol 750 mg tablet 750 mg PO Q8H 12/16/23 12/17/23 oxycodone 5 mg tablet 5 mg PO Q6H PRN pain 12/16/23 12/17/23 zolpidem 12.5 mg tablet,extended 12.5 mg PO .QHS 12/16/23 12/16/23 release,multiphase Previous Rx's ?Medication ?Instructions ?Recorded etodolac 300 mg capsule 300 mg PO Q8H PRN pain #20 caps 12/16/23 Allergies Allergy/AdvReac Type Severity Reaction Status Date / Time No Known Drug Allergies Allergy Verified 12/17/23 10:35 [facility] Medical History (Updated 12/17/23 @ 11:42 by Gaston Mcdonough MD) Hemorrhoids ?K64.9 - Unspecified hemorrhoids (ICD-10) Loose bowel movements ?R19.5 - Other fecal abnormalities (ICD-10) Kidney stones ?N20.0 - Calculus of kidney (ICD-10) Nasal fracture ?S02.2XXA - Fracture of nasal bones, initial encounter for closed fracture (ICD-10) Depressive disorder ?F32.A - Depression, unspecified (ICD-10) Situational anxiety ?F41.8 - Other specified anxiety disorders (ICD-10) Insomnia ?G47.00 - Insomnia, unspecified (ICD-10) Circadian rhythm sleep disorder ?G47.20 - Circadian rhythm sleep disorder, unspecified type (ICD-10) Otitis media ?H66.90 - Otitis media, unspecified, unspecified ear (ICD-10) Asthma ?J45.909 - Unspecified asthma, uncomplicated (ICD-10) Irritable bowel syndrome ?K58.9 - Irritable bowel syndrome without diarrhea (ICD-10) Constipation ?K59.00 - Constipation, unspecified (ICD-10) Dermatitis ?L30.9 - Dermatitis, unspecified (ICD-10) Cervicalgia ?M54.2 - Cervicalgia (ICD-10) Low back pain ?M54.50 - Low back pain, unspecified (ICD-10) Erectile dysfunction ?N52.9 - Male erectile dysfunction, unspecified (ICD-10) Hypertension ?I10 - Essential (primary) hypertension (ICD-10) Surgical History (Updated 06/24/23 @ 12:59 by Kathy Santiago RN) H/O colonoscopy ?Z98.890 - Other specified postprocedural states (ICD-10) History of vasectomy ?Z98.52 - Vasectomy status (ICD-10) Family History (Updated 06/24/23 @ 13:00 by Kathy Santiago RN) Other Family history of diabetes mellitus Family history of hypertension Respiratory disorder Social History (Updated 06/24/23 @ 13:01 by Kathy Santiago RN) Within the past year, how often did you have a drink containing alcohol: 2-4 times a month Within the past year, how many standard drinks containing alcohol did you have on a typical day: 1 or 2 Within the past year, how often did you have six or more drinks on one occasion: never Total score: 0 Score interpretation: A score less than 4 is consistent with normal alcohol consumption. 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 He is not writhing in discomfort Checking his deep tendon reflexes he has brisk for for reflex of the patella and Achilles on the right. He has strong extensor houses longus function on both toes. On the left he has a very strong Achilles reflex but he has a totally absent patellar reflex on his left side. Straight leg raising test is negative bilaterally. Examining his left hip I see no rash or exanthem or evidence of shingles or zoster. Neurovascular examination to his lower extremity is normal. X-rays from yesterday were noted the reports. Constitutional Vital Signs, click to edit/add: Last Vital Signs Temp 98.1 F 12/17/23 10:30 Pulse 83 12/17/23 10:30 Resp 18 12/17/23 10:30 BP 153/95 H 12/17/23 10:30 Pulse Ox 97 12/17/23 10:30 O2 Del Method Room Air 12/17/23 10:30 Course Vital Signs Vital signs: Vital Signs Temperature 98.1 F 12/17/23 10:30 Pulse Rate 83 12/17/23 10:30 Respiratory Rate 18 12/17/23 10:30 Blood Pressure 153/95 H 12/17/23 10:30 Pulse Oximetry 97 12/17/23 10:30 Oxygen Delivery Method Room Air 12/17/23 10:30 Temperature 98.1 F 12/17/23 10:30 Pulse Rate 83 12/17/23 10:30 Respiratory Rate 18 12/17/23 10:30 Blood Pressure 153/95 H 12/17/23 10:30 Pulse Oximetry 97 12/17/23 10:30 Oxygen Delivery Method Room Air 12/17/23 10:30 MDM - Extremity (Nontraumatic) MDM Narrative Medical decision making narrative: This patient presents with radiculopathy and an absent deep tendon reflex at the left patella. Will contact his primary care doctor to facilitate his outpatient management. I will put him on a steroid burst and analgesics. He understands the recommendations for follow-up Discharge Plan Discharge Stand Alone Forms: Portal Instructions Chief Complaint: Extremity Problem, Nontraumatic Clinical Impression: Acute left lumbar radiculopathy Patient Disposition: Home, Self-Care Time of Disposition Decision: 11:42 Prescriptions / Home Meds: No Action methocarbamol 750 mg tablet 750 mg PO Q8H oxycodone 5 mg tablet 5 mg PO Q6H PRN (Reason: pain) zolpidem 12.5 mg tablet,ext release multiphase 12.5 mg PO .QHS etodolac 300 mg capsule 300 mg PO Q8H PRN (Reason: pain) Qty: 20 0RF albuterol sulfate 90 mcg/actuation HFA aerosol inhaler 1 inh inhalation Q4H PRN (Reason: SOB) diphenhydramine HCl [Benadryl] 25 mg capsule 12.5 mg PO QPM PRN (Reason: insomnia) Rx Instructions: orally every 3 hours; amlodipine 10 mg tablet 10 mg PO DAILY fluticasone furoate-vilanterol [Breo Ellipta] 100-25 mcg/dose blister with device 1 inh inhalation DAILY tizanidine 4 mg capsule 4 mg PO Q8H zolpidem 10 mg tablet 10 mg PO .HS PRN (Reason: insomnia) sildenafil [Viagra] 100 mg tablet 100 mg PO DAILY PRN (Reason: erectile dysfunction) Rx Instructions: administer 30 minutes to 4 hours before activity Print Language: Latvian Additional Instructions: Prednisone burst/[place]/follow-up with [facility] Referrals: Shaikh Sen MD [Primary Care Provider] - 1 week
[2023-12-17] MEDS: HYDROMORPHONE HCL 1 MG/ML CARTRIDGE IM (11:52)
== END 2023-12-17 12:23 | disposition home or self-care (01) ==
PROVIDERS: Emergency Provider Emergency Medicine Emergency Medical Services; PCP Internal Medicine
DX: M54.16 Radiculopathy, lumbar region (principal); Z87.442 Personal history of urinary calculi; F32.A Depression, unspecified; F41.8 Other specified anxiety disorders; G47.00 Insomnia, unspecified; J45.909 Unspecified asthma, uncomplicated; K58.9 Irritable bowel syndrome, unspecified; I10 Essential (primary) hypertension; Z98.52 Vasectomy status; Z79.899 Other long term (current) drug therapy
CPT/HCPCS: 96372; 99284; J1170

== ENCOUNTER 2023-12-23 07:28 | Outpatient (OUT) | payer OTHER, SELFPAY ==
--- OUTSIDE RECORDS SUMMARY | 2023-12-23 07:31 | XMS_ITS | CCD ---
Author Organization [facility] Care Team Providers Care Inside Sales Associate Name Role Phone LESLY ZUNIGA Primary Care Physician [phone] TIM WEAVER Admitting Unavailable TIM WEAVER Attending [...] Medication Allergies] Propensity to adverse reactions (disorder) [facility] Repository Medications Current Medications Medication Drug Class(es) Dates Sig (Normalized) Sig (Original) [id number] 200 actuat albuterol 0.09 mg/actuat metered dose [...] 08-31-2023 Episodic Other aftercare (1 source) Other intermediate (current) drug therapy; Translations: [OTH DETENTION CURRENT DRUG THERAPY] Onset: 3 Episodic Other [...] Reference Range Facility Operative Reporton Operative Report [id number] #1.00CD:127 Normal [facility] Coding Summary.on 12-04-2022 Coding Summary. CD:[id number] Ww+PGhlYWQ+IQ3QOGWrB 38vcFVtoJ8lG5PMZUbPY ywgQVBQTElOSyIgbmFtZ G0iwECxGDAq IC8+UD8rDMLnCgpaqRPn d5G1mEX8C04ztq1gTWch kMX8QMYmYdUduqkkd7jx cYg6PIugAvjlSqFe QSCqtR57STR3jE01Sb13 aUHphXQxq8cryRq0PiPg GSZjLAK4mStzCJnac1Dh CHXwD84uxJNdy3E9 IGNvbGxhcHNlOyBlbXB0 vZ8mIMowhpjha6acqqge Xjf3xo72dBDcr9B1cUD8 Y9PzrlO2CHUmpWEu GkzyhCHLzF2ogqgvv2oy dcorNgUvYYXiFEn7EFf3 YWRcjEaqRuNcOM29TDL6 VYDtccEwN4BbPDKq uLyeYsE4y9M7Mo0ZQ4VG KespH1ROLMUPEXnmzGT+ EO80nw92Z6YlTbgkUwh4 ZWWhIIG1oZF7nB0w TBDxNCtjt7Q1sKM2I4Hn dmBvpd2nm0skQQPmOIjq E07mtJNle8N2WHIusPC7 VWPxfPeyBsJwoG99 Oyc+NTLalBonb7CyGaqk i3kar5jmxWn7MtrtDOZq kfWqkDpdQLD4o4PaBr0x FQJwpJP1xPH6qN7n DhAfLjB5VQwaN198LsXy kTRvMrwoE75aV8ActNH+ KEKgZzs0FAHugHaoOO0e D1ZxRCIkxtaftTHi sMwwOB8nQASjsggfFYVt uF4oAKNwE4c0PwLpEsU9 GXslE3AcUDFtqjijVq27 dZ4xWjEjCkD9XJrp K0RjcrP3WUQwyURyRLrn SNP3W19op5O3XRIjRRGf HLE7fON2rZ6scGkctklt bGVmdDsgdmVydGlj KTqhZAjkS960AGYqoXix PkNvZGluZyBEYXRlOiAg MDMvMjMvMjAyMzwvdGQ+ UTJsMOE7hOwrNDYr zANfHPsoPz3fkBiziCtc YW5eIJQymdoxNIIehV7i DDOlkQMvgJzuCS1nMSAg nipdq619CgXqBIW8 XHWaqZVaB5KghX5fXcSv BTJyPHRiO1CynOJcNBqv T551DYjdRdQ8WJOtuoDu P1BuKZEigAdaLoT4 b1Z0Bb7Lu2ZrrghhU9Mf iPUvGiUiGssrDOq9Z7Kz PjwvdHI+FM37RZOpAV78 UOl3NSA0sIdnTPoh EHYjP6GsfD3oIoXdGDHd ZGRkOyc+PHRhYmxlIHdp ZHRoPScxMDAlJyBzdHls PH9hOy3pIOKhVNHt qWzprXPfWdGjr1owZWYg MQhvWC2txSufA5BoyYF5 OKYng4a7Tz70X69qI0Rk dXA+EOIhbVW4gAK9 uV3rNsOyKcX1VOgiT703 WrMgyVJcWkamm0jss4xo hZs8EhR4HDCgwzLnaSdc VTS6n1QrHd51X30j IHdpZHRoPSIxNSUiIHZh oMlhkg9joO3xJu6+PGNv vIA8zOV5dW3dGjXpKxF4 USakP724JyFqeWCl Yanns5gor1mtrTt3TgBh KDRcwwQlfGznANA9f4Ej Dd50H5TuvOuzq4WpKix5 lt38sYIvj2H1lVH4 M2ZnHLRnuzzwxCNwcXrc XR1pPAOhiekoUYLntT2c GEYqP4i4CwOcNpF5BKdj I0LvvdZ7TMDulWDk LPSovNPYuX3ybhhtu4rl sftaNmAxPSQpONa4KDc2 OVIzxVmyOxEaIYS2CoR7 HPB1qOMmbI3moBkw ghozhB7rMzd+PXP0hUVz sDSRBU5jZnjckTR+PHRk FZG4oLmlMKemYWIlkW9k KTUrX9g0ToPiLaJ9 PXagA3MsnyO3TRMyvGUx TZFxpVKEpH7rteovi6wh ucrcAmSwYJZzQEg9HIw6 LWFsaWduOiBsZWZ0 UcM7FNY2gJNiwY7ljImb tufhuH3mFoe+QmlydGgg BCS0PXb8K3GmYdy2SOLy uZspQW1ldLTtQYah Lz6bqOkqoImeXT6lHKKk fvqgx856RiTcd4mlNBKb uKSmIHypLMS6W37ra4X4 UWYxIGXkWRZ3bIU9 kA1sqOotjjtrkVIobKhb ulLlfYnqKNzfOFgcE651 ABCvxLlzCpIbKPm8J9Tl Yop3ILDxaTboIX8p dORwRTjoQl1ahHfjoZaf TF6mQQZqafndt074OpQk l4ajGKIhiCYuTJqaHMV5 H62it9D2JBAxCRYx LJN5lQC5zG1qzSzuypfa bGVmdDsgdmVydGljYWwt CDtkC366VPLlnHdsHyJn kEn0N6BkOwx8LGXj mBzrXO3ppYJvEMpjHk0q pGprrXktML0dSXOzbanb o907ZhPll1rrSBFcwAQv RYhaZGX0C02ye2U1 JQKqWXEkDPE7qMP4oS9z bGlnbjogbGVmdDsgdmVy gHuzCBadENjvC993HTDt cDsnPlBhdGllbnQg WKvhQQk8R9InSirxeFP+ DL12EMBzJB21oSAqaBDw v8zgeFh2ZlYtKXIyNIA9 vBhjKAmdq3VlYXCb T15uzNImf7I9QICspOuf hMSlYwNtoXR0vA0yKMgj wcotf4robtlbGzvbe1ci lg54mP34Q83aGFbp ZHRoPSIzMCUiIHZhbGln cq9mcR7yJx4+PGNvbCB3 mFO9pO6rMIStDkO6AOnp Z035UgMrbJOjQsan r1uej8ziePo8HdR3EYBc bzGckHbwJUQ0d6QsQw30 Z43oILszXDWdRIXtIZAr FAYbdWxpyj4cyD5o Ii8+DXJemFF0oZF3pF1r XuMxYfD8EOdeN473EcZm nCVoAtvdE62xF4OrbTY+ INSaNwq9OLKvkIrx NT4uzKYtZJnoAx5fZFQ4 AwVgTyYyFSwxM6TfVWJz tczezhtykGO4UEUhNJDg hG19Lk1zkDvmVECt qORRnZ4dwuksn5cafugq AvKgFRQbDLp0NGt4LUOu rPirDzYoDZO4XxC7YLU3 vDBeeX3cwLcibvio nF5dL3GlOZNmyqrpFp38 zS7nEmFcWrV4OKnjMou+ TqEESYVBX3GvPXjHHIRO GA19JY66kBTgb8J4 dXV4K5GeFHGzflvxehre yVR9SZZoYOUsrD11nJYf AQoaLs3wr9T4m047RSNd BNTewV83Hs3ykWhr MNXipHAYtL0zbbqdl9uv kvkxLtRtAKIrNGi0EGc0 XHRoqFkrVbTpPAN6UrB6 FOV2mDJeaF6iaNik avlztL3oSbb+MDMvMTAv SMx5YDudmNW+PHRkIHN0 zAamGKzhQIYowB5lFBUb K2j8WsGsRbT7WGrh Z7RrOOIfstqfBq08zJ5l CwKuSnW8VPjvD6RrebN4 PSKubWUtVEamJKS4B64c t6P0QKThMQIeKKD5 zCG1rX6ruOfxtohqbNDv dDsgdmVydGljYWwtYWxp S071AYLhlSjeFiL4RHnh RJJiKI07GE38mKIs o3W5gEK0S8JkSJUsltjv yjfpeAS3XSRoRMSbzL63 hOPcYZujHp8em6Y0e108 GKCaAFWrwT93Ue4l kUokQKZzlIVZoO2fvjvt s5hbstykKtExYBBbXEb1 QEy2EMXgdZdeYdPlIUD5 BbH0MBK6qCRxlT2q oJegnigyyV4aAqc+TWFs ZTwvdGQ+EPHeZDW5yPcz CNmgWTZgiR7kIOMhI2m1 ImDjYnZ6OIigP7Js PNVxiowpZy87fD9fYjUq HxS6DBpjN0NxkoE5URKy oXWlPXykPWY9V28ow8L6 ORIlOCVbQUW4yIW8 eC2txKdyptpyuNDlbRia kiXwsOkzVBggPHspA803 IRQmvJmuCxeqQmKQqx6u BO6jAazryXS+PC90 pp38E0SjJlviTxl6GQOw HXA0mYS7lH3rDZReWCxm f5Q2bRG6D5RlhxRsdg5n l2xcYITzARfgP07s uOIrl7N8YPJdhYR9LMEd gLpbSvHivC81Fpc+PGNv bKmnh8WvPlklc5uoi1lu rMw9QpLaWTGzftZj pHloGOR5m0MkXl04N74f IHdpZHRoPSIzMCUiIHZh mHfyce3zjK7uNw1+PGNv nYC4yXA2eU7cCaRv YgS3GYcjK055IqYceMHh Dtkie5hvw2ebeAs2FfGf YTZptmXpqFpjIHN9b8Ig Ix49F7RycMgao0Xg Zra7zv84nBMpg9P7aER1 M6WmZCZczvtigCYizWnn BC4jZLKwkocaEOJbeA0y IZWaH8v5BsBkPzP6 WTmyT8MzghF8QRYwaVXu SDBgpHOPrY1oilwan7mr swcdLvTeOZZuWEb2CEl1 LWFsaWduOiBsZWZ0 YxE3PLU3tKSzzX3lzNuj jpblvJ6qXyd+ILn6d5op sBRyPH3bkDE9SN59BN81 lFBut4D8qKU7W5Zw YNDoxhvxdoxkiON7MIGl UUAjrA99Eg8keJocTa6v RDKeNVW0XNLttAOyQ6Je eK7tHxVrMSKcHLXz P9OrlUCeOGjuH352XBbx VcV8SBFlkeIxS7RgRUPs uCmbNuM3z3S1Wx8SCP25 ZP24RE14dWJys9R1 bLC9H2XzGAZxvivedffq cSI9CRUkXHJocJ47Kd7e qOwhEc6iGHSfTTQ3XHDo sRJeG7DqmF7tDdNx QEWdMJOnR3VikJPwCTwv N393MPrhQiH7LFJpzmWb U0QfQIYslNvbEsE8n1P2 Hh6OYf05HS74ZP38 hNWhi5A9rSZ8Z1RwIMFv vmmoejayaYZ3OHKjWLAu zK07Qa7neZljVi6eVWSd ACZ4DKRnoYZzL9Bk tK9yMyZpCHLgUONbX4Zo yLNjQGedE391PMliDjU5 WRHwrrYmR6VuEEEwtQeu AhI1p6X1Ow7NUSkg agr3Z0ToTsxgrWN+PC90 EQHqYO87rHKagKKzs4qo wRc8CfZwPANhNJP2sHzy AYqvd2GqHKKxX44r zNGtu9W5 (more content not included)... [facility] Consent for Procedure/Surger yon 12-03-2022 Consent for Procedure/Surgery [id number]# 1.00CD:127 [facility] C Urineon 11-29-2022 Bacteria identified Cx Nom [...] Locations R1: This test was performed at: [facility], [address] [place] [address], [id number] , , [facility] Comment on above: Performed By: #### 2 [id number] ####[facility] [address] [place] [address] Ambulatory Visit Summaryon 0 11-26-2022 Ambulatory Visit Summary GUZMAN REEVES :1970 Visit Date:11/26/2022 Ambulatory Visit Instructions Your Diagnosis Gross hematuria Tests Performed Urnls Dip Stick Auto w/o Microscopy POC [id number] Your Care Team Attending Physician - LESLY ZUNIGA MD Primary Care Physician - LISA BECKHAM DO This Is Your Medications List albuterol (Ventolin HFA 90 mcg/inh Aerosol) docusate (Colace 100 mg Cap) zolpidem (zolpidem 10 mg oral tablet) Procedures Performed Colonoscopy, Vasectomy. What to do next Scheduled Follow-Up Appointments Thursday 3:45 PM EDT With: ESTELITA DAMON, Delfino Nation Where: [facility] CALCULI, URINARYon 3 2,8 Dihydroxyadenine Normal [facility] Comment on above: Performed By: #### C ALCULI #### [facility] [address] [address] [address] Kaden James Ammonium Acid Urate Normal [facility] Comment on above: Performed By: #### C ALCULI #### [facility] [address] [address] [address] Kaden James Bilirubin Ql (U) Normal [facility] Comment on above: Performed By: #### C ALCULI #### [facility] [address] [address] [address] Kaden James Ca Oxalate Dihydrate Normal [facility] Comment on above: Performed By: #### C ALCULI #### [facility] [address] [address] [address] Kaden James CaHPO4 (Brushite) Normal [facility] Comment on above: Performed By: #### C ALCULI #### [facility] [address] [address] [address] Kaden James Calcium Bilirubinate Normal [facility] Comment on above: Performed By: #### C ALCULI #### [facility] [address] [address] [address] Kaden James Calcium Carbonate Normal [facility] Comment on above: Performed By: #### C ALCULI #### [facility] [address] [address] [address] Kaden James Calcium Oxalate Monohydrate 100 % Normal [facility] Comment on above: Performed By: #### C ALCULI #### [facility] [address] [address] [address] Kaden James Calcium Palmitate Normal [facility] Comment on above: Performed By: #### C ALCULI #### [facility] [address] [address] [address] Kaden James Calcium Phosphate Normal [facility] Comment on above: Performed By: #### C ALCULI #### [facility] [address] [address] [address] Kaden James Calcium Stearate Normal [facility] Comment on above: Performed By: #### C ALCULI #### [facility] [address] [address] [address] Kaden James Carbonate Apatite Normal [facility] Comment on above: Performed By: #### C ALCULI #### [facility] [address] [address] [address] Kaden James Cellular Material Normal [facility] Comment on above: Performed By: #### C ALCULI #### [facility] [address] [address] [address] Kaden James Cholesterol Normal [facility] Comment on above: Performed By: #### C ALCULI #### [facility] [address] [address] [address] Kaden James Color (U) Brown Normal [facility] Comment on above: Performed By: #### C ALCULI #### [facility] [address] [address] [address] Kaden James Comment [facility] Comment on above: Performed By: #### C ALCULI #### [facility] [address] [address] [address] Kaden James Comment Comment Normal [facility] Comment on above: Result Comment: Calc ulus received wet. Wet calculi must be dried before analysis, which delays reporting of results. Leaving calculi wet (such as water, saline, blood, urine) may lead to changes in composition. Performed By: #### C ALCULI #### [facility] [address] [place] [address] Dr. Kaden James Comment: Comment Normal [facility] Comment on above: Result Comment: Enid marroquin questions regarding Calculi Analysis contact [facility] at: [phone]. Performed By: #### C ALCULI #### [facility] [address] [place] [address] Dr. Kaden James Composition Comment Normal [facility] Comment on above: Result Comment: Perc entage (Represents the % composition) Performed By: #### C ALCULI #### [facility] [address] [place] [address] Dr. Kaden James Cystine Normal [facility] Comment on above: Performed By: #### C ALCULI #### [facility] [address] [place] [address] Dr. Kaden James Disclaimer: Comment Normal [facility] Comment on above: Result Comment: This test was developed and its performance characteristics determined by [facility]. It has not been cleared or approved by the Food and Drug Administration. Performed By: #### C ALCULI #### [facility] [address] [place] [address] Dr. Kaden James Dried Blood Normal [facility] Comment on above: Performed By: #### C ALCULI #### [facility] [address] [place] [address] Dr. Kaden James Drug or Metabolite Normal [facility] Comment on above: Performed By: #### C ALCULI #### [facility] [address] [place] [address] Dr. Kaden James Hydroxyapatite [facility] Comment on above: Performed By: #### C ALCULI #### [facility] [address] [place] [address] Dr. Kaden James Mg NH4 PO4 (Struvite) Normal [facility] Comment on above: Performed By: #### C ALCULI #### [facility] [address] [address] [address] Kaden James MgHPO4 ([facility]) Normal [facility] Comment on above: Performed By: #### C ALCULI #### [facility] [address] [address] [address] Kaden James Other component(s) Normal [facility] Comment on above: Performed By: #### C ALCULI #### [facility] [address] [address] [address] Kaden James PDF . Normal [facility] Comment on above: Performed By: #### C ALCULI #### [facility] [address] [address] [address] Kaden James Photo Comment [facility] Comment on above: Result Comment: Phot ograph will follow under a separate cover Performed By: #### C ALCULI #### [facility] [address] [address] [address] Kaden James Please note: Comment Normal [facility] Comment on above: Result Comment: Calc renetta report will follow via computer, mail or test boring crew chief delivery. Performed By: #### C ALCULI #### [facility] [address] [address] [address] Kaden James Size 1x1 [facility] Comment on above: Result Comment: Mult iple pieces received. Dimensions of the largest piece reported. Performed By: #### C ALCULI #### [facility] [address] [address] [address] Kaden James Sodium Acid Urate Normal [facility] Comment on above: Performed By: #### C ALCULI #### [facility] [address] [address] [address] Kaden James Source Comment [facility] Comment on above: Result Comment: Righ t Ureter Performed By: #### C ALCULI #### [facility] [address] [address] [address] Kaden James Triamterene [facility] Comment on above: Performed By: #### C ALCULI #### [facility] [address] [address] [address] Kaden James Uric Acid Normal [facility] Comment on above: Performed By: #### C ALCULI #### [facility] [address] [address] [address] Kaden James Uric Acid Dihydrate Normal [facility] Comment on above: Performed By: #### C ALCULI #### [facility] [address] [address] [address] Kaden James Weight 22 mg Normal [facility] Comment on above: Performed By: #### C ALCULI #### [facility] [address] [address] [address] Kaden James Xanthine [facility] Comment on above: Performed By: #### C ALCULI #### [facility] [address] [place] [address] Dr. Kaden James Operative Reporton Operative Report [id number] #1.00CD:127 Normal [facility] RAD - CT Reporton 11-24-2022 RAD - CT Report [id number] #1.00CD:127 Normal [facility] RAD - MISCon 11-24-2022 RAD - MISC [id number] #1.00CD:127 Normal [facility] Consent for Procedure/Surger yon 11-20-2022 Consent for Procedure/Surgery [id number] #1.00CD:127 Normal [facility] Screenson 11-20-2022 Screens [id number] #1.00CD:127 Normal [facility] Patient Educationon 11-20-19 Patient Education Urology Dietary [...] Rhubarb. ? Beets. ? Potato chips and peruvian fries. ? Nuts. ? If you regularly take a diuretic medicine, make sure to eat at least 1?2 fruits or vegetables high in potassium each day. These include: ? Avocado. ? Banana. ? Bowman, prune, carrot, or tomato juice. ? Baked [...] dr (more content not included)... Normal [facility] Urology Office/Clinic Noteon 11-19-2022 Urology Office/Clinic Note Chief Complaint Follow up to [facility] HPI Staff Pt is here today for follow up to [facility] due to right flank and abdominal [...] and ureteral calculous obstruction) Follow up to [facility] ER visit on 11/16/22 due to [...] [facility] [address], [place] [address]- Additional Instructions: x-ray, schedule tentative laser litho [...] (at bedti (more content not included)... Normal [facility] Comment on above: Result Comment: Elec tronically Signed By: Delfino ARIAS MD\.br\Date and Time Signed: 11/19/22 14:25 EST\.br\Electronically Co-Signed By: Jyoti Morales\.br\Date and Time Co-Signed: 11/19/22 14:24 EST ED Note-Physicianon 11-19-19 ED Note-Physician [id number] #1.00CD:127 Normal [facility] CBC AUTO DIFFon 11-16-2022 BASO # 0.1 103/ul Normal 0.0-0.1 [facility] Comment on above: Performed By: #### C BC #### [facility] [address] [address] [address] Kaden James Basophils/100 WBC (Bld) 0.6 % Normal 0.2-2.0 [facility] Comment on above: Performed By: #### C BC #### [facility] [address] [address] [address] Kaden James EO # 0.1 103/ul Normal 0.0-0.7 [facility] Comment on above: Performed By: #### C BC #### [facility] [address] [place] [address] Dr. Kaden James Eosinophils/100 WBC (Bld) 1.4 % Normal 0.9-7.0 [facility] Comment on above: Performed By: #### C BC #### [facility] [address] [place] [address] Dr. Kaden James Erythrocyte distribution width (RBC) [Ratio] 12.2 % Normal 11.0-15.0 [facility] Comment on above: Performed By: #### C BC #### [facility] [address] [place] [address] Dr. Kaden James Hematocrit (Bld) [Volume fraction] 44.6 % Normal 42.0-54.0 [facility] Comment on above: Performed By: #### C BC #### [facility] [address] [place] [address] Dr. Kaden James Hemoglobin (Bld) [Mass/Vol] 15.5 g/dL Normal 14.0-18.0 [facility] Comment on above: Performed By: #### C BC #### [facility] [address] [place] [address] Dr. Kaden James IG # 0.03 10e3/ul Normal 0.00-0.03 [facility] Comment on above: Performed By: #### C BC #### [facility] [address] [place] [address] Dr. Kaden James IG % 0.3 % Normal 0.0-0.5 [facility] Comment on above: Performed By: #### C BC #### [facility] [address] [place] [address] Dr. Kaden James LYMPH # 2.6 103/ul Normal 1.2-3.8 [facility] Comment on above: Performed By: #### C BC #### [facility] [address] [place] [address] Dr. Kaden James Lymphocytes/100 WBC (Bld) 25.6 % Normal 20.5-60.0 [facility] Comment on above: Performed By: #### C BC #### [facility] [address] [place] [address] Dr. Kaden James MANUAL DIFF REQ NO Normal [facility] Comment on above: Performed By: #### C BC #### [facility] [address] [place] [address] Dr. Kaden James MCH (RBC) [Entitic mass] 31.9 pg Normal 25.9-34.0 [facility] Comment on above: Performed By: #### C BC #### [facility] [address] [place] [address] Dr. Kaden James MCHC (RBC) [Mass/Vol] 34.8 g/dL Normal 29.9-35.2 [facility] Comment on above: Performed By: #### C BC #### [facility] [address] [place] [address] Dr. Kaden James MCV (RBC) [Entitic vol] 91.8 fL Normal 80.0-94.0 [facility] Comment on above: Performed By: #### C BC #### [facility] [address] [place] [address] Dr. Kaden James MONO # 0.7 103/ul Normal 0.3-0.8 [facility] Comment on above: Performed By: #### C BC #### [facility] [address] [place] [address] Dr. Kaden James Monocytes/100 WBC (Bld) 6.8 % Normal 1.7-12.0 [facility] Comment on above: Performed By: #### C BC #### [facility] [address] [place] [address] Dr. Kaden James NEUT # 6.6 103/ul Critically high 1.4-6.5 [facility] Comment on above: Performed By: #### C BC #### [facility] [address] [place] [address] Dr. Kaden James Neutrophils/100 WBC (Bld) 65.3 % Normal 43.0-75.0 [facility] Comment on above: Performed By: #### C BC #### [facility] [address] [place] [address] Dr. Kaden James Platelet mean volume (Bld) [Entitic vol] 9.2 fL Critically low 9.5-13.5 [facility] Comment on above: Performed By: #### C BC #### [facility] [address] [place] [address] Dr. Kaden James PLT 393 103/ul Normal 150-450 [facility] Comment on above: Performed By: #### C BC #### [facility] [address] [place] [address] Dr. Kaden James RBC 4.86 106/ul Normal 4.70-6.10 [facility] Comment on above: Performed By: #### C BC #### [facility] [address] [place] [address] Dr. Kaden James WBC 10.1 103/ul Normal 4.0-11.0 [facility] Comment on above: Performed By: #### C BC #### [facility] [address] [place] [address] ABD/PELVIS WO CONon [...] HERSON MAGANA Date: 2022-11-16 09:10 Normal [facility] ER URINE PROFILEon 3 Bilirubin Ql (U) Negative Normal NEGATIVE [facility] Comment on above: Performed By: #### Agus HILL UMICRO #### [facility] [address] [address] [address] Kaden James Clarity (U) CLEAR Normal CLEAR [facility] Comment on above: Performed By: #### Agus HILL UMICRO #### [facility] [address] [place] [address] Dr. Kaden James Color (U) YELLOW Normal YELLOW [facility] Comment on above: Performed By: #### Agus HILL UMICRO #### [facility] [address] [address] [address] Kaden James ERUAHD A micrscopic examination will be performed if indicated. Normal [facility] Comment on above: Performed By: #### Agus HILL UMICRO #### [facility] [address] [address] [address] Kaden James Glucose Ql (U) Negative Normal NEGATIVE [facility] Comment on above: Performed By: #### Agus HILL UMICRO #### [facility] [address] [address] [address] Kaden James Hemoglobin Ql (U) SMALL Abnormal NEGATIVE [facility] Comment on above: Performed By: #### Agus HILL UMICRO #### [facility] [address] [address] [address] Kaden James Ketones Ql (U) Negative Normal NEGATIVE [facility] Comment on above: Performed By: #### Agus HILL UMICRO #### [facility] [address] [address] [address] Kaden James LEUKOCYTES Negative Normal NEGATIVE [facility] [facility] Comment on above: Performed By: #### Agus HILL UMICRO #### [facility] [address] [place] [address] Dr. Kaden James Nitrite Ql (U) Negative Normal NEGATIVE [facility] Comment on above: Performed By: #### Agus HILL UMICRO #### [facility] [address] [place] [address] Dr. Kaden James pH (U) 7.0 [pH] Normal 5-9 [facility] Comment on above: Performed By: #### Agus HILL UMICRO #### [facility] [address] [place] [address] Dr. Kaden James SPEC GRAVITY 1.020 Normal 1.005-<=1.025 [facility] Comment on above: Performed By: #### Agus HILL UMICRO #### [facility] [address] [place] [address] Dr. Kaden James UA PROTEIN Negative Normal NEGATIVE/ TRACE [facility] Comment on above: Performed By: #### Agus HILL UMICRO #### [facility] [address] [place] [address] Dr. Kaden James UR MICRO IND INDICATED Normal [facility] Comment on above: Performed By: #### Agus HILL UMICRO #### [facility] [address] [place] [address] Dr. Kaden James Urobilinogen Qn (U) 0.2 {Deonna'U}/dL Normal 0.2 - 1. 0 [facility] Comment on above: Performed By: #### Agus HILL UMICRO #### [facility] [address] [place] [address] Dr. Kaden James PROF CHEM 8 (BAS METB)on Anion gap [Moles/Vol] 11.3 mmol/L Normal Th [facility] Comment on above: Performed By: #### B MP #### [facility] [address] [place] [address] Dr. Kaden James Calcium [Mass/Vol] 9.2 mg/dL Normal 8.5-10.1 [facility] Comment on above: Performed By: #### B MP #### [facility] [address] [address] [address] Kaden James Chloride [Moles/Vol] 109 mmol/L Critically high 98-107 [facility] Comment on above: Performed By: #### B MP #### [facility] [address] [address] [address] Kaden James CO2 [Moles/Vol] 29.6 mmol/L Normal 21.0-32.0 [facility] Comment on above: Performed By: #### B MP #### [facility] [address] [place] [address] Dr. Kaden James Creatinine [Mass/Vol] 1.48 mg/dL Critically high 0.70-1.30 [facility] Comment on above: Performed By: #### B MP #### [facility] [address] [place] [address] Dr. Kaden James EGFR-AF MICRONESIAN 60 mL/min/1.73m2 Normal >=60 [facility] Comment on above: Performed By: #### B MP #### [facility] [address] [place] [address] Dr. Kaden James EGFR-NON AF MICRONESIAN 50 mL/min/1.73m2 Critically low >=60 [facility] Comment on above: Performed By: #### B MP #### [facility] [address] [address] [address] Kaden James Glucose [Mass/Vol] 112 mg/dL Critically high 74-106 [facility] Comment on above: Performed By: #### B MP #### [facility] [address] [place] [address] Dr. Kaden James Potassium [Moles/Vol] 3.9 mmol/L Normal 3.5-5.1 [facility] Comment on above: Performed By: #### B MP #### [facility] [address] [place] [address] Dr. Kaden James Sodium [Moles/Vol] 146 mmol/L Critically high 136-145 [facility] Comment on above: Performed By: #### B MP #### [facility] [address] [place] [address] Dr. Kaden James Urea nitrogen [Mass/Vol] 13.0 mg/dL Normal 7.0-18.0 [facility] Comment on above: Performed By: #### B MP #### [facility] [address] [place] [address] Dr. Kaden James Urea nitrogen/Creatinine [Mass ratio] 8.8 mg/mg Normal [facility] Comment on above: Performed By: #### B MP #### [facility] [address] [place] [address] Dr. Kaden James URINE MICROSCOPIC ONLYon BACTERIA NONE SEEN Normal NONE SEEN [facility] Comment on above: Performed By: #### E RUR UMICRO #### [facility] [address] [place] [address] Dr. Kaden James Bacteria identified Cx Nom (U) NOT INDICATED Normal [facility] Comment on above: Performed By: #### E RUR, UMICRO #### [facility] [address] [place] [address] Dr. Kaden James CAST NONE SEEN Normal NONE SEEN [facility] Comment on above: Performed By: #### E RUR, UMICRO #### [facility] [address] [place] [address] Dr. Kaden James Crystals LM Nom (Urine sed) NONE SEEN Normal NONE SEEN [facility] Comment on above: Performed By: #### E RUR, UMICRO #### [facility] [address] [place] [address] Dr. Kaden James Epithelial cells LM Ql (Urine sed) RARE Normal NONE SEEN /RARE [facility] Comment on above: Performed By: #### E RUR, UMICRO #### [facility] [address] [place] [address] Dr. Kaden James MUCOUS TRACE Abnormal NONE SEEN [facility] Comment on above: Performed By: #### E RUR, UMICRO #### [facility] [address], [place] [address] Dr. Kaden James RBC 2-5 Abnormal 0-2 [facility] Comment on above: Performed By: #### E ELIZABETH HILLRO #### [facility] [address], [place] [address] Dr. Kaden James WBC 0-2 Abnormal NONE SEEN [facility] Comment on above: Performed By: #### E ELIZABETH HILLRO #### [facility] [address], [place] [address] Dr. Kaden James Vital Signs Date Time Vital Sign Value Performing Clinician Sonam correa 11-19-2022 13:39-0500 Blood Pressure Location Delfino ARIAS [facility] 11-19-2022 13:39-0500 Diastolic blood pressure 97 mm[Hg] Delfino ARIAS [facility] 11-19-2022 13:39-0500 Heart rate 69 /min Delfino ARIAS [facility] 11-19-2022 13:39-0500 Systolic blood pressure 150 mm[Hg] Delfino ARIAS [facility] Encounters Encounter Date Encounter Type Care Provider Facility Start: 12-14-2023 End: 12-14-2023 ambulatory R[facility] FAWWAD Not Available Start: 12-03-2023 End: 12-03-2023 ambulatory [facility] FAWWAD Not Available Start: 11-04-2023 End: 11-04-2023 ambulatory [facility] FAWWAD Not Available Start: 10-21-2023 Telephone encounter Florentin Dupont [facility] Comment on above: Med Refill (VIAGRA R EFILL) Start: 08-31-2023 End: 08-31-2023 ambulatory [facility] FAWWAD Not Available Start: 04-06-2023 ambulatory Delfino ARIAS Facili ty:[facility] Start: 12-09-2022 ambulatory Delfino Nieves ty:[facility] Start: 12-05-2022 End: 12-06-2022 ambulatory Delfino ARIAS Facility:[id number] Start: 11-26-2022 End: 11-27-2022 ambulatory Delfino ARIAS Facility:[facility] Start: 11-26-2022 End: 11-27-2022 ambulatory LESLY ZUNIGA Facility: [facility] Start: 11-26-2022 End: 11-26-2022 Lab Drop off Delfino ARIAS [facility] Start: 11-26-2022 End: 11-26-2022 Patient encounter procedure LESLY ZUNIGA [facility] Start: 11-20-2022 End: [address] DELFINO ARIAS . Facility: Start: 11-19-2022 End: 11-20-2022 ambulatory Delfino ARIAS Facility:[facility] Start: 11-19-2022 End: 11-19-2022 Patient encounter procedure Delfino ARIAS [facility] Start: 11-16-2022 End: 11-16-2022 ambulatory TIM [...] Screening for malign ant neoplasm of colon [facility] Immunizations Immunization Date Immunization Notes Care Provider Tom mcmullen 06-15-2018 influenza virus vaccine, unspecified formulation Delfino ARIAS [facility] 06-15-2018 Influenza, injectabl e, Madin Guatay Canine Kidney, quadrivalent with preservative Florentin Dupont MA [facility] Payers Date Payer Category Payer Unknown [employer] [id number] 2022-Present [address] [address] [place] [address] [id number] 2022 Unknown [id number] 1970 Unknown [id number] [id number] 3 1968 Unknown [id number] [id number] 3 1968 Unknown [id number] [id number] 7 1968 Unknown [id number] 2.16.840.1.134828.3.579.2.72 7 1968 Unknown [id number] [id number] 7 1968 Unknown [id number] [id number] 7 1968 Unknown [id number] 2.16.840.1.484522.3.579.2.72 7 1968 Unknown [id number] 2.16.840.1.394295.3.579.2.72 7 1968 Unknown [id number] 2.16.840.1.036978.3.579.2.72 7 1968 Unknown [id number] 2.16.840.1.530799.3.579.2.12 59 1968 Unknown [id number] 2.16.840.1.665280.3.579.2.12 59 1968 Unknown [id number] 2.16.840.1.046967.3.579.2.12 59 1968 Unknown [id number] 2.16.840.1.125553.3.579.2.12 59 1959 Unknown [id number] Social History Date Type Detail Facility Start: 11-19-2022 End: 08-31-2023 Tobacco smoking status Never smoked tobacco (finding) [facility] Tobacco smoking status Never [facility] Start: 08-31-2023 Sex Assigned At Male [facility] Start: 08-31-2023 Tobacco use and exposure Smokeless [...] Facility 11-19-2022 Functional Status N/A [facility] Telephone encounter Note 10-21-2023 Telephone Encounter - [...] extraction of ureteral calculus. 6. Placement of 6-Paraguayan variable length right ureteral stent. ANESTHESIA: General [...] usual fashion. I started by passing a 22-Paraguayan Olympus cystoscope per urethra and into the [...] kidney. I then used an 8 and 10-Paraguayan rigid dilator to dilate the distal ureter. [...] into the bladder. I then slid a 6-Paraguayan variable length Bard terminal carman ureteral stent over the wire, up into the kidney. The wire was removed and there were good curls in the kidney and in the bladder. The bladder was drained of its contents and the scope was then removed. He was then transferred to a gurney bed and wheeled to PACU in stable condition. [facility] Discharge instructions 11-19-2022 Note Date & [...] include: ?Spinach. ?Rhubarb. ?Beets. ?Potato chips and peruvian fries. ?Nuts. If you regularly take a diuretic medicine, make sure to eat at least 1 2 fruits or vegetables high in potassium each day. These include: ?Avocado. ?Banana. ?Bowman, prune, carrot, or tomato juice. ?Baked potato. [...] Casseroles. Pizza. Lasagna. Frozen meals. Potato chips. Paraguayan fries. Summary You can reduce your risk [...] 12/26/2011 Document Revised: 12/21/2019 Document Reviewed: 08/11/2017 [employer] Patient Education 2020 idio. Follow Up Care 11/18/2022 14:59:23 With:Delfino ARIAS MD, URL Address: [facility] [address], [place] [address]- When: Unknown [facility] Evaluation + Plan note Note Date & Type Note Facility Evaluation + Plan note No data available for this section [facility] Evaluation + Plan note Note Date & Type Note Facility Evaluation + Plan note Future Appointments Appointment Date:12/09/2022 03:45:00 PM Scheduled Provider:Delfino ARIAS MD Location:[facility] Appointment Type:URO Procedure 15 min [facility] Evaluation + Plan note Note Date & Type Note Facility Evaluation + Plan note Future Appointments Appointment Date:12/09/2022 03:45:00 PM Scheduled Provider:Delfino ARIAS MD Location:[facility] Appointment Type:URO Procedure 15 min Diagnostic Tests PendingUrine Culture 11/26/22 [facility] Evaluation note Note Date & Type Note Facility Evaluation note Diagnosis Erectile dysfunction, unspecified erectile dysfunction type- Primary documented in this encounter [facility] Hospital Discharge instructions Note Date & Type Note Facility Hospital Discharge instructions No data available for this section [facility] note Note Date & Type Note Facility Progress note No data available for this section [facility] [employer] Summary Purpose Family History No Family History Records FoundNo Family History Records FoundNo Family History Records Found Advance Directives No Advanced Directives Records FoundNo Advanced Directives Records FoundNo Advanced Directives Records Found Additional Source Comments Patient Care team informatio n (unrecognized section and content) Inside Sales Associate Relationship Specialty Start Date End Date Shaikh Sen MD PCP - General Internal Medicine 09/14/22 (unrecognized sect ion and content) No Status Records FoundNo Status Records FoundNo Status Records Found INFORMATION SOURCE (unrecogn ized section and content) DATE CREATED AUTHOR 11/26/2022 [facility] DATE CREATED AUTHOR AUTHOR'S ORGANIZ ATION 12/25/2022 [facility] DATE CREATED AUTHOR AUTHOR'S ORGANIZ ATION 12/15/2023 [facility] Reason for Visit (unrecogniz ed section [...] BE BASED ON THE PRIMARY CLINICAL RECORDS. [employer] provides no warranty or guarantee of the accuracy or completeness of information in this document.
--- NOTE | 2023-12-23 07:34 | MR_ITS ---
[address] [address] Patient Name: RONNY REEVES MRN: [facility]:[id number] date: 1970 Sex: M Assigned Patient Location: MRI Current Patient Location: MRI Accession/Order Number: [id number] Exam Date: 12/23/2023 07:50 Report Date: 12/23/2023 09:03 At the request of: KALEB HOWARD Procedure: MR lumbar spine wo con EXAMINATION: MR lumbar spine wo con HISTORY: Lumbar Back Pain With Radiculopathy M54.16 COMPARISON: No relevant comparison available. TECHNIQUE: A variety of imaging planes and parameters were utilized for visualization of suspected pathology. FINDINGS: For the purposes of numbering, sagittal T2 image # 8 extends from the T11 vertebral body superiorly to the S3-S4 level inferiorly. PARASPINAL AREA: Normal with no visible mass. BONES: Normal alignment with no acute fracture or spondylolisthesis. No bone edema. Mild anterior wedging of the T11 and T12 vertebral bodies, physiologic versus remote. Moderate degenerative spondylosis CORD/CAUDA EQUINA: Normal caliber, contour, and signal intensity. DISC LEVELS: 12-L1: No significant disc/facet abnormality, spinal stenosis, or foraminal stenosis. L1-L2: No significant disc/facet abnormality, spinal stenosis, or foraminal stenosis. L2-L3: Disc desiccation. Mild posterior disc/osteophyte complex. No central or foraminal stenosis L3-L4: Disc space narrowing and disc desiccation. Posterior broad-based disc protrusion extending posteriorly up to 2.7 mm. Facet osteoarthropathy and ligamentum flavum hypertrophy. No central canal stenosis. Mild bilateral foraminal stenosis L4-L5: Disc space narrowing and disc desiccation. Posterior broad-based disc protrusion. Focal left foraminal disc herniation of the extrusion type measuring 1.2 cm at the base extending posteriorly up to 4.6 mm, axial image 6 and 7, sagittal image 7. No central canal or right foraminal stenosis. Moderate to severe left foraminal stenosis. L5-S1: Disc desiccation. Broad-based posterior disc protrusion. No central or foraminal stenosis MR/MR lumbar spine wo con IMPRESSION: Left foraminal disc herniation L4-L5 resulting in foraminal stenosis. Findings are consistent with patient's left leg radiculopathy Electronically authenticated by: TORSTEN DUQUE Date: 12/23/2023 09:03
== END 2023-12-23 07:29 | disposition home or self-care (01) ==
LOC: MRI 07:28
PROVIDERS: PCP Internal Medicine; Visit Provider Nurse Practitioner
DX: M54.16 Radiculopathy, lumbar region (principal); M51.26 Other intervertebral disc displacement, lumbar region
CPT/HCPCS: 72148

== ENCOUNTER 2024-01-14 13:44 | Outpatient (OUT) | payer OTHER, SELFPAY ==
[2024-01-14 14:21] LABS: Basophils Absolute Auto 0.1 10^3/uL (0.0-0.1); Basophils Percent Auto 0.8 % (0.2-2.0); Eosinophils Absolute Auto 0.2 10^3/uL (0.0-0.7); Eosinophils Percent Auto 2.7 % (0.9-7.0); Hematocrit 39.1 % (42.0-54.0); Hemoglobin 13.2 g/dL (14.0-18.0); Immature Granulocytes Abs Auto 0.05 10^3/uL (0.00-0.03); Immature Granulocytes Pct Auto 0.7 % (0.0-0.5); Lymphocytes Absolute Auto 2.5 10^3/uL (1.2-3.8); Lymphocytes Percent Auto 33.2 % (20.5-60.0); Mean Corpuscular HGB Conc 33.8 g/dL (29.9-35.2); Mean Corpuscular Hemoglobin 32.4 pg (25.9-34.0); Mean Corpuscular Volume 95.8 fL (80.0-94.0); Monocytes Absolute Auto 0.6 10^3/uL (0.3-0.8); Monocytes Percent Auto 8.5 % (1.7-12.0); Neutrophils Absolute Auto 4.1 10^3/uL (1.4-6.5); Neutrophils Percent Auto 54.1 % (43.0-75.0); Platelet Count 435 10^3/uL (150-450); Red Blood Count 4.08 10^6/uL (4.70-6.10); Red Cell Distribution Width 11.8 % (11.0-15.0); White Blood Count 7.5 10^3/uL (4.0-11.0)
[2024-01-15 15:47] LABS: Occult Blood Negative
== END 2024-01-14 13:45 | disposition home or self-care (01) ==
LOC: LAB 13:47
PROVIDERS: PCP Internal Medicine; Visit Provider Internal Medicine
DX: K92.1 Melena (principal)
CPT/HCPCS: 36415; 85025; G0328

== ENCOUNTER 2024-05-31 12:08 | Outpatient (OUT) | payer OTHER, SELFPAY ==
--- OUTSIDE RECORDS SUMMARY | 2024-05-31 12:29 | XMS_ITS | CCD ---
Author Organization [facility] Care Team Providers Care Chimney Supervisor Brick Name Role Phone LESLY ZUNIGA Primary Care Physician [phone] TIM WEAVER Admitting Unavailable TIM WEAVER Attending Unavailable LAURARODRIGUEZ, LAIRD H Primary Care Unavailable TIM WEAVER Consulting Unavailable HERSON MAGANA Consulting Unavailable ARIAS ., DR DURANT Admitting Unavailable ARIAS ., DR DURANT Attending Unavailable [facility] Unavailable ARIAS ., DR DURANT Consulting Unavailable NAYE SIMMONS Consulting Unavailable CATARINO IIKURTIS Consulting Unavailable LISA BECKHAM Primary Care Physician Carleen ARIAS Attending Unavailable LESLY ZUNIGA Attending Unavailable ESTELITA, Carleen Nation Attending Unavailable ESTELITA, Carleen Nation Attending Unavailable Carleen ARIAS Admitting Unavailable Carleen ARIAS Attending Unavailable ESTELITA, Carleen Nation Attending Unavailable Carleen ARIAS Attending Unavailable Shaikh Sen MD Primary Care Provider [phone] Robert Milton MD Primary Care Provider [phone] Eligio Sen MDikh Primary Care Provider ROBERT MILTON Primary Care Unavailable DESIRAE LO Attending Unavailable AMY FLORES Attending Unavailable LAURARODRIGUEZ [facility] Primary Care Unavailable SHAIKH SEN Referring Unavailable MCKINLEY [facility] Primary Care Unavailable LAKSHMI VAZQUEZ Attending Unavailable DESIRAE LO Referring Unavailable [facility] Primary Care Unavailable JULIANNA KUMARI Attending Unavailable SHAIKH SEN Referring Unavailable [facility] Primary Care Unavailable LEAH COLLADO Admitting Unavailable LEAH COLLADO Attending Unavailable FAWWAD, LAIRD Referring Unavailable FAWWAD, LAIRD Primary Care Unavailable JULIANNA KUMARI Attending Unavailable FAWWAD, LAIRD Referring Unavailable FAWWAD, LAIRD Primary Care Unavailable FAWWAD, LAIRD Attending Unavailable FAWWAD, LAIRD Attending Unavailable FAWWAD, LAIRD Attending Unavailable SMART, PACO Attending Unavailable FAWWAD, LAIRD Referring Unavailable HEDY HUGHES Attending Unavailable SMART, PACO Attending Unavailable FAWWAD, LAIRD Referring Unavailable FAWWAD, LAIRD Attending Unavailable FAWWAD, LAIRD Attending Unavailable SMART, PACO Attending Unavailable TATTERSALL, REBECCA Attending Unavailable FAWWAD, LAIRD Referring Unavailable TATTERSALL, REBECCA Attending Unavailable FAWWAD, LAIRD Referring Unavailable TATTERSALL, REBECCA Attending Unavailable FAWWAD, LAIRD Referring Unavailable FAWWAD, LAIRD Attending Unavailable FAWWAD, LAIRD Attending Unavailable SMART, PACO Attending Unavailable FAWWAD, LAIRD Referring Unavailable FAWWAD, LAIRD Attending Unavailable NELA MEJÍA Attending Unavailable FAWWAD, LAIRD Referring Unavailable SMART, PACO Attending Unavailable FAWWAD, LAIRD Referring Unavailable SMART, PACO Attending Unavailable FAWWAD, LAIRD Referring Unavailable SMART, PACO Attending Unavailable FAWWAD, LAIRD Referring Unavailable SMART, PACO Attending Unavailable FAWWAD, LAIRD Referring Unavailable MICHAEL GARCIA Attending Unavailable FAWWAD, LAIRD Referring Unavailable FAWWAD, LAIRD Attending Unavailable Allergies Allergy Classification Reported Allergen(s) Allergy Type Date of Onset Reaction(s) Facility (1 source) No Known Medication Allergies; Translations: [No Known Medication Allergies] Propensity to adverse reactions (disorder) [facility] Repository Medications Current Medications Medication Drug Class(es) Dates Sig (Normalized) Sig (Original) [id number] 200 actuat albuterol 0.09 mg/actuat metered dose inhaler (1 source) beta2-Adrenergic Agonist Start: 08-31-2023 End: 11-29-2023 take 2 puff(s) by inhalation every four hours for wheezing albuterol HFA 90 mcg/act inhaler Indications: Moderate persistent asthma without complication ([facility]) Inhale 2 puffs every 4 (four) hours if needed for wheezing 18 g 1 08/31/2023 11/29/2023 Active amLODIPine 10 mg oral tablet (7 sources) Dihydropyridine Calcium Channel Lo Start: 02-03-2024 Amlodipine Active 10 MG PO February 03, 2024 12:00am Start: 08-31-2023 End: 11-29-2023 take 1 tablet by mouth in the morning amLODIPine (NORVASC) 10 mg tablet TAKE 1 TABLET(10 MG) BY MOUTH IN THE MORNING 0 11/30/2023 Active apixaban 5 mg oral tablet (8 sources) Factor Xa Inhibitor Start: 02-06-2024 take 1 tablet by mouth twice daily apixaban (ELIQUIS) 5 mg tab(s) Take 1 tablet by mouth two times a day. Patient should start on February 06, 2024. 60 tablet 0 02/06/2024 Active Start: 02-06-2024 take 1 tablet by rod th twice daily apixaban (ELIQUIS) 5 mg tab(s) Take 1 tablet by mouth two times a day. Patient should start on February 06, 2024. 60 tablet 0 02/06/2024 Active Start: 02-06-2024 take 1 tablet by rod th twice daily apixaban (ELIQUIS) 5 mg tab(s) Take 1 tablet by mouth two times a day. Patient should start on February 06, 2024. 60 tablet 0 02/06/2024 Active Start: 02-03-2024 Apixaban (Eliq uis) 5 mg tablet Active 5 MG PO February 03, 2024 12:00am Start: 01-07-2024 End: 02-06-2024 take 2 tablets by mouth twice daily, then take 1 tablet by mouth twice daily apixaban (ELIQUIS DVT-PE TREAT 30D START) 5 mg (74 tabs) Take 2 tablets (10 mg) by mouth twice daily for 7 days. Then take 1 tablet (5 mg) by mouth twice daily for 23 days 74 tablet 0 01/07/2024 02/06/2024 Active docusate sodium 100 mg oral capsule (3 sources) Start: 02-22-2021 take 1 capsule by mouth twice daily as needed for constipation Colace 100 mg Cap 100 mg = 1 cap(s), Oral, BID, PRN for constipation, # 20 cap(s), Refills(s) 0 Start Date: 02/22/21 Status: Ordered Fluticasone Propion-Salmeterol (7 sources) Corticosteroid , beta2-Adrenerg ic Agonist Start: 02-03-2024 Fluticasone Propion-Salmeterol Active INHALATION February 03, 2024 12:00am fluticasone-salm eterol (ADVAIR DISKUS) 100-50 mcg/dose DsDv Inhale 1 Puff as instructed as needed. 0 Active 30 actuat fluticasone furoate 0.2 mg/actuat / vilanterol 0.025 mg/actuat dry powder inhaler (1 source) Corticosteroid, beta2-Adrenergic Agonist Start: 08-31-2023 End: 02-27-2024 take 1 puff(s) by inhalation in the morning Fluticasone Furoate-Vilanterol (Breo Ellipta) 200-25 MCG/ACT aerosol powder Indications: Moderate persistent asthma without complication (CMS/HCC) Inhale 1 puff in the morning. 3 each 1 08/31/2023 02/27/2024 Active gabapentin 100 mg oral capsule (4 sources) Anti-epileptic Agent Start: 12-24-2023 gabapentin (NEURONTIN) 100 mg capsule Start with 1-3 pills at bedtime, then if tolerates well, may add 1-3 in the morning. 0 12/24/2023 Active ibuprofen 800 mg oral tablet (3 sources) Nonsteroidal Anti-inflammatory Drug Start: 10-05-2023 End: 11-04-2023 take 1 tablet by mouth three times daily as needed for pain ibuprofen 800 MG tablet Indications: Acute bilateral low back pain without sciatica Take 1 tablet (800 mg) by mouth 3 (three) times a day as needed for mild pain 90 tablet 0 10/05/2023 11/04/2023 Active End: 01-07-2024 take 1 tablet by mouth every eight hours as needed Ibuprofen 100 mg chewable tablet Take 100 mg by mouth every 8 hours as needed. 0 01/07/2024 Discontinued (Course of therapy completed) Lactobacillus acidophilus (1 source) Start: 04-09-2024 Lactobacillus acidophilus Active PO April 09, 2024 12:00am predniSONE 10 mg oral tablet (1 source) Start: 04-09-2024 Prednisone Act olegario 10 MG PO As Directed 04 06April 09, 2024 12:00am 4 tablets x 3 days, 2 tablets x 3 days, 1 tablet x 3 days sildenafil 100 mg oral tablet (2 sources) Phosphodiesterase 5 Inhibitor Start: 10-21-2023 End: 01-19-2024 sildenafil (Viagra) 100 MG tablet Indications: Erectile dysfunction, unspecified erectile dysfunction type Take 1 tablet (100 mg) by mouth if needed for erectile dysfunction 30 tablet 2 10/21/2023 01/19/2024 Active tadalafil 10 mg oral tablet (1 source) Phosphodiesterase 5 Inhibitor Start: 04-09-2024 Tadalafil Active 10 MG PO April 09, 2024 12:00am Ventolin HFA 90 mcg/inh Aerosol (3 sources) Start: 02-22-2021 Ventolin HFA 9 0 mcg/inh Aerosol Refill(s) 0 Start Date: 02/22/21 Status: Ordered zolpidem tartrate 12.5 mg extended release oral tablet (15 sources) gamma-Aminobutyric Acid-ergic Agonist Start: 02-03-2024 Zolpidem Active MG PO February 03, 2024 12:00am Start: 01-05-2024 Zolpidem (AMBI EN CR) 12.5 mg CR tablet Start: 10-05-2023 End: 01-03-2024 zolpidem CR (Ambien CR) 12.5 MG ER tablet Indications: Psychophysiological insomnia Take 1 tablet (12.5 mg) by mouth as needed at bedtime for sleep Do not crush, chew, or split. 30 tablet 2 10/05/2023 01/03/2024 Active Start: 02-22-2021 End: 02-01-2024 take 1 tablet by mouth once daily at bedtime as needed for sleep zolpidem 10 mg oral tablet 10 mg = 1 tab(s), Oral, Once a day (at bedtime), PRN for sleep, Refills(s) 0 Start Date: 02/22/21 Status: Ordered Completed/Discontinued Medications Medication Drug Class(es) Dates Sig (Normalized) Sig (Original) L. RHAMNOSUS GG/INULIN (CULTURELLE PROBIOTICS ORAL) (5 sources) End: 02-01-2024 L. RHAMNOSUS GG/INULIN (CULTURELLE PROBIOTICS ORAL) Take by mouth every 48 hours. 0 02/01/2024 Discontinued L. RHAMNOSUS GG/ INULIN (CULTURELLE PROBIOTICS ORAL) Take by mouth every 48 hours. 0 Active mirtazapine 30 mg oral tablet (5 sources) End: 02-01-2024 take 1 tablet by mouth once daily at bedtime mirtazapine 30 mg tablet Take 30 mg by mouth daily at bedtime. 0 02/01/2024 Discontinued polyethylene glycol 3350 81766 mg powder for oral solution (5 sources) Osmotic Laxative Start: 11-16-2012 End: 02-01-2024 Polyethylene Glycol 3350 (MIRALAX) 17 gram/dose powder 1/2 capful in 8 oz of any fluid once a day. 1 Bottle 4 11/16/2012 02/01/2024 Discontinued Problems Problem Classification Problem Date Documented Da [...] 08-31-2023 Episodic Other aftercare (1 source) Other usp (current) drug therapy; Translations: [OTH SECURITIES COMPLIANCE EXAMINER CURRENT DRUG THERAPY] Onset: 3 Episodic Other connective tissue disease (1 source) Swelling of left lower limb; Translations: [Other specified soft tissue disorders] 01-07-2024 Episodic Other connective tissue disease (1 source) Pain in left lower leg; Translations: [Pain of left calf] Onset: 4 Episodic Other diseases of kidney and ureters [...] Translations: [INDURATION PENIS PLASTICA] Onset: 3 Chronic Phlebitis; thrombophlebitis and thromboembolism (11 sources) Deep venous thrombosis; Translations: [Acute embolism and thrombosis of unspecified deep veins of unspecified lower extremity] Onset: 4 01-07-2024 Episodic Residual codes; unclassified (3 sources) Insomnia 02-21-2021 Episodic Residual codes; unclassified (1 source) Insomnia, unspecified; Translations: [INSOMNIA UNSPECIFIED] Onset: 3 Episodic Residual codes; unclassified (1 source) Alcoholism; Translations: [Alcohol use disorder] Onset: 3 08-31-2023 Episodic Residual codes; unclassified (1 source) Pain, unspecified; Translations: [Pain, unspecified] Onset: 4 Episodic Spondylosis; intervertebral disc disorders; other back problems (3 sources) Degeneration of lumbar intervertebral disc; Translations: [Other intervertebral disc degeneration, lumbar region] Onset: 4 01-07-2024 Chronic Spondylosis; intervertebral disc disorders; other back problems (6 sources) Acute low back pain; Translations: [Acute bilateral low back pain without sciatica] Onset: 4 10-05-2023 Episodic Unclassified (1 source) Lumbar disc disease with radiculopathy [M51.16] Onset: 4 Results Test Name Value Interpretation Reference Range Facility [facility] 02-01-2024 CNOV Office Visit ([facility]PSLUH ) RONNY REEVES ([id number]) 1970 M Date Time Provider Department 02/01/24 2:20 PM [facility]SHMI [facility]QUE[facility] During your visit today, we recorded the following information about you: Weight Height 65 kg 1.651 m Lakshmi Vazquez MD 02/01/2024 4:17 PM Signed SPINE SURGERY NEW PATIENT This is an in-person visit. PCP: Shaikh Mckinley MD REFERRING PROVIDER: Desirae Lo SUBJECTIVE HISTORY OF PRESENT ILLNESS: Ronny Reeves is a 53 year old male presenting with son. CHIEF COMPLAINT: left leg radicular pain PRECIPITATING EVENT: None DURATION OF SYMPTOMS: Greater Than 6 Weeks Is a very pleasant 53-year-old male who presents with left-sided radiculopathy. Patient reports that following treatment with a chiropractor he experienced acute radicular pain. He was being followed by spine medicine and he was noted to have a left lower extremity DVT, he was recently started on Eliquis for this. He is not allowed to come off this medication for 3 to 6 months as such he has not been able to obtain an epidural steroid injection as well as not being able to undergo surgery. He reports since onset his pain has definitely improved especially with usage of gabapentin. He denies any weakness he reports some issues with sleeping but otherwise he is doing okay AMBULATORY STATUS: Impaired Community Distances ANTIPLATELET OR ANTICOAGULATION STATUS: Yes DVT or PE PREVIOUS CONSERVATIVE TREATMENTS: Nsaids PREVIOUS SPINAL SURGERY: None ACTIVE PROBLEM LIST Deep Venous Thrombosis (Hcc) Acute Deep Vein Thrombosis (Dvt) of Left Tibial Vein (Hcc) PAST MEDICAL HISTORY Diagnosis Date Asthma Depression PAST SURGICAL HISTORY Procedure Laterality Date REMOVAL OF ANAL FISSURE SPHINCTEROTOMY FAMILY HISTORY Problem Relation Age of Onset None Other Blood Clots No Family History Social History Tobacco Use Smoking status: Never Substance Use Topics Alcohol use: Yes Comment: weekends ALLERGIES No Known Allergies MEDICATIONS: gabapentin (NEURONTIN) 100 mg capsule Start with 1-3 pills at bedtime, then if tolerates well, may add 1-3 in the morning. amLODIPine (NORVASC) 10 mg tablet TAKE 1 TABLET(10 MG) BY MOUTH IN THE MORNING Zolpidem (AMBIEN CR) 12.5 mg CR tablet apixaban (ELIQUIS DVT-PE TREAT 30D START) 5 mg (74 tabs) Take 2 tablets (10 mg) by mouth twice daily for 7 days. Then take 1 tablet (5 mg) by mouth twice daily for 23 days [START ON 02/06/2024] apixaban (ELIQUIS) 5 mg tab(s) Take 1 tablet by mouth two times a day. Patient should start on February 06, 2024. fluticasone-salmeterol (ADVAIR DISKUS) 100-50 mcg/dose DsDv Inhale 1 Puff as instructed as needed. REVIEW OF SYSTEMS: All are negative except those stated in the History of Present illness. Patient Entered Questionnaires 12/31/2023 Spine Questions Pain Location: Lower back Pain Duration: More than 5 years Pain over last 6 months: At least half the days in the past 6 months Symptoms from neck/cervical spine: Yes Employment Status: Disabled due to back pain, permanently or temporarily Off work 1 month or more due to back/neck pain: Yes Applied for/receive disability/WC due to low back/neck pain Yes Involved in law suit/legal claim: No 12/31/2023 Neck Questionnaires Benzel Modified MICHAEL Score 12 (Moderate Myelopathy Symptoms) PROMIS Score Percentiles 12/31/2023 Physical Health Physical Function Percentile 1 Sleep Percentile 3 Fatigue Percentile 4 Pain Interference Percentile 1 12/31/2023 PROMIS SOCIAL ROLE SCORE Social Role Satisfaction Percentile 1 12/31/2023 PROMIS Global Health Scale Physical Health Percentile 2 Mental Health Percentile 5 Percentiles provide an indication of how the patient's score ranks in relation to the general population. Higher percentile rankings indicate better function/quality of life. 50th percentile is the average of the general population and indicates half of respondents had a worse score. Depression Screening: PHQ-9 Self-Harm (Item 9) response options: 0 Not at all 1 Several days 2 More than half the days 3 Nearly every day PHQ-9 Levels: 0-4 No to mild depression 5-9 Mild depression 10-14 Moderate depression 15-19 Moderately severe depression 20-27 Severe depression OBJECTIVE: PHYSICAL EXAM Ht 165.1 cm (5' 5 ) Wt 65 kg (143 lb 4.8 oz) BMI 23.85 kg/m? Spine Exam Drain(s): Incision: Neck No obvious deformity, normal ROM Back No stepoffs/deformities. No tenderness or instability to palpation along spinous processes or paravertebral musculature Upper Extremities UE BICEPS TRICEPS DELTS Wrist Ext Wrist Flex Otologist HI R 5 5 5 5 5 5 5 L 5 5 5 5 5 5 5 Sensation to light touch intact to bilateral upper extremities +2 radial pulse Right: Triceps, Biceps, Brachial normoreflexic Left: Triceps, Biceps, Brachial (more content not included)... Normal [facility] CBC W Auto Differential pane l (Bld)on 01-07-2024 Basophils (Bld) [#/Vol] 0.06 10*3/uL Normal <0.11 [facility] Comment on above: Order Comment: Speci men Type: BLOOD SPECIMEN Ordering Facility: [facility] Address: [address] [place] [address] Performed By: #### 3 4528-0 #### [facility] CLIA [id number] [place] [address] [place] Basophils/100 WBC (Bld) 0.7 % Normal [facility] Comment on above: Order Comment: Speci men Type: BLOOD SPECIMEN Ordering Facility: [facility] Address: [address] [place] [address] Performed By: #### 3 4528-0 #### [facility] CLIA [id number] [place] [address] [place] Differential cell count method Nom (Bld) Auto Normal [facility] Comment on above: Order Comment: Speci men Type: BLOOD SPECIMEN Ordering Facility: [facility] Address: [address] [place] [address] Performed By: #### 3 4528-0 #### [facility] IA [id number] [address] [place] [address] [place] Eosinophils (Bld) [#/Vol] 0.20 10*3/uL Normal <0.46 [facility] Comment on above: Order Comment: Speci men Type: BLOOD SPECIMEN Ordering Facility: [facility] Address: [address] [place] [address] Performed By: #### 3 4528-0 #### [facility] IA [id number] [address] [place] [address] [place] Eosinophils/100 WBC (Bld) 2.3 % Normal [facility] Comment on above: Order Comment: Speci men Type: BLOOD SPECIMEN Ordering Facility: [facility] Address: [address] [place] [address] Performed By: #### 3 4528-0 #### [facility] CLIA [id number] [place] [address] [place] Erythrocyte distribution width (RBC) [Ratio] 11.9 % Normal 11.5-15.0 [facility] Comment on above: Order Comment: Speci men Type: BLOOD SPECIMEN Ordering Facility: [facility] Address: [address] [place] [address] Performed By: #### 3 4528-0 #### [facility] IA [id number] [address] [place] [address] [place] Hematocrit (Bld) [Volume fraction] 45.0 % Normal 39.0-51.0 [facility] Comment on above: Order Comment: Speci men Type: BLOOD SPECIMEN Ordering Facility: [facility] Address: [address] [place] [address] Performed By: #### 3 4528-0 #### [facility] IA [id number] [address] [place] [address] [place] Hemoglobin (Bld) [Mass/Vol] 15.5 g/dL Normal 13.0-17.0 [facility] Comment on above: Order Comment: Speci men Type: BLOOD SPECIMEN Ordering Facility: [facility] Address: [address] [place] [address] Performed By: #### 3 4528-0 #### [facility] IA [id number] [address] [place] [address] [place] Immature granulocytes (Bld) [#/Vol] 0.16 10*3/uL High <0.10 [facility] Comment on above: Order Comment: Speci men Type: BLOOD SPECIMEN Ordering Facility: [facility] Address: [address] [place] [address] Performed By: #### 3 4528-0 #### [facility] IA [id number] [address] [place] [address] [place] Immature granulocytes/100 WBC (Bld) 1.8 % Normal [facility] Comment on above: Order Comment: Speci men Type: BLOOD SPECIMEN Ordering Facility: [facility] Address: [address] [place] [address] Performed By: #### 3 4528-0 #### [facility] IA [id number] [address] [place] [address] [place] Lymphocytes (Bld) [#/Vol] 2.20 10*3/uL Normal 1.00-4.00 [facility] Comment on above: Order Comment: Speci men Type: BLOOD SPECIMEN Ordering Facility: [facility] Address: [facility] [place] [address] Performed By: #### 3 4528-0 #### [facility] CLIA [id number] [address] [place] [address] [place] Lymphocytes/100 WBC (Bld) 25.3 % Normal [facility] Comment on above: Order Comment: Speci men Type: BLOOD SPECIMEN Ordering Facility: [facility] Address: [address] [place] [address] Performed By: #### 3 4528-0 #### [facility] IA [id number] [place] [address] [place] MCH (RBC) [Entitic mass] 33.0 pg Normal 26.0-34.0 [facility] Comment on above: Order Comment: Speci men Type: BLOOD SPECIMEN Ordering Facility: [facility] Address: [address] [place] [address] Performed By: #### 3 4528-0 #### [facility] IA [id number] [address] [place] [address] [place] MCHC (RBC) [Mass/Vol] 34.4 g/dL Normal 30.5-36.0 [facility] Comment on above: Order Comment: Speci men Type: BLOOD SPECIMEN Ordering Facility: [facility] Address: [address] [place] [address] Performed By: #### 3 4528-0 #### [facility] CLIA [id number] [place] [address] [place] MCV (RBC) [Entitic vol] 95.7 fL Normal 80.0-100.0 [facility] Comment on above: Order Comment: Speci men Type: BLOOD SPECIMEN Ordering Facility: [facility] Address: [address] [place] [address] Performed By: #### 3 4528-0 #### [facility] CLIA [id number] [address] [place] [address] [place] Monocytes (Bld) [#/Vol] 0.70 10*3/uL Normal <0.87 [facility] Comment on above: Order Comment: Speci men Type: BLOOD SPECIMEN Ordering Facility: [facility] Address: [address] [place] [address] Performed By: #### 3 4528-0 #### [facility] CLIA [id number] [address] [place] [address] [place] Monocytes/100 WBC (Bld) 8.1 % Normal [facility] Comment on above: Order Comment: Speci men Type: BLOOD SPECIMEN Ordering Facility: [facility] Address: [address] [place] [address] Performed By: #### 3 4528-0 #### [facility] CLIA [id number] [address] [place] [address] [place] Neutrophils (Bld) [#/Vol] 5.36 10*3/uL Normal 1.45-7.50 [facility] Comment on above: Order Comment: Speci men Type: BLOOD SPECIMEN Ordering Facility: [facility] Address: [address] [place] [address] Performed By: #### 3 4528-0 #### [facility] CLIA [id number] [place] [address] [place] Neutrophils/100 WBC (Bld) 61.8 % Normal [facility] Comment on above: Order Comment: Speci men Type: BLOOD SPECIMEN Ordering Facility: [facility] Address: [address] [place] [address] Performed By: #### 3 4528-0 #### [facility] CLIA [id number] [place] [address] [place] Nucleated RBC (Bld) [#/Vol] 10*3/uL Normal <0.01 [facility] Comment on above: Order Comment: Speci men Type: BLOOD SPECIMEN Ordering Facility: [facility] Address: [address] [place] [address] Performed By: #### 3 4528-0 #### [facility] IA [id number] [address] [place] [address] [place] Nucleated RBC/100 WBC (Bld) [Ratio] 0.0 /100 WBC Normal [facility] Comment on above: Order Comment: Speci men Type: BLOOD SPECIMEN Ordering Facility: [facility] Address: [address] [place] [address] Performed By: #### 3 4528-0 #### [facility] IA [id number] [address] [place] [address] [place] Platelet mean volume (Bld) [Entitic vol] 9.3 fL Normal 9.0-12.7 [facility] Comment on above: Order Comment: Speci men Type: BLOOD SPECIMEN Ordering Facility: [facility] Address: [address] [place] [address] Performed By: #### 3 4528-0 #### [facility] IA [id number] [place] [address] [place] Platelets (Bld) [#/Vol] 251 10*3/uL Normal 150-400 [facility] Comment on above: Order Comment: Speci men Type: BLOOD SPECIMEN Ordering Facility: [facility] Address: [address] [place] [address] Performed By: #### 3 4528-0 #### [facility] IA [id number] [address] [place] [address] [place] RBC (Bld) [#/Vol] 4.70 10*6/uL Normal 4.20-6.00 [facility] Comment on above: Order Comment: Speci men Type: BLOOD SPECIMEN Ordering Facility: [facility] Address: [address] [place] [address] Performed By: #### 3 4528-0 #### [facility] IA [id number] [address] [place] [address] [place] WBC (Bld) [#/Vol] 8.68 10*3/uL Normal 3.70-11.00 [facility] Comment on above: Order Comment: Speci men Type: BLOOD SPECIMEN Ordering Facility: [facility] Address: [address] [place] [address] Performed By: #### 3 4528-0 #### [facility] CLIA [id number] [address] [facility] [place] [address] [place] CNOVon 01-07-2024 CNOV Office Visit ([facility] ) JOSEFARONNY ALBRECHT ([id number]) 1970 M Date Time Provider Department 01/07/24 8:00 AM DESIRAE LO [facility] During your visit today, we recorded the following information about you: Desirae Lo APRN.DOLL MAKER 01/07/2024 9:02 AM Signed [facility] Low Back Pain - Acute (0 - 6 weeks) Initial Exam SUBJECTIVE HISTORY OF PRESENT ILLNESS: Ronny Reeves is a 53 year old male who presents with a chief complaint of low back and leg pain and is self-referred. Patient presents with left low back and leg pain x 1 month . He reports that symptoms began after chiropractic treatment. Prior to today's appointment he has been under the care of of local chiropractor, his primary care provider and recent establishment with pain management. He has also had to local ED evaluations in regards to symptoms. He is currently scheduled for a left L3, L4 TFESI with pain management on 01/15/2024. At time of today's appointment he also reports that he has been experiencing left lower extremity calf redness, pain, and swelling since Thursday morning and has not sought medical treatment for this as of today. Patient's sister, Hedy, is present with patient's consent. Hedy states that on top of current medical concerns per patient he is also having personal concerns as his mother and son are both ill, son has liver disease, and he is also going through divorce. He presents in a wheelchair but is using a walker or cane at home to assist with ambulation due to pain to the left leg. Works at [employer] Nonsmoker ETOH - twisted tea's drinking 3 times was a week , Pain localized to Left low back Pain described as sharp, stabbing, throbbing Radiation: Left low back pain to great toe Numbness/Tingling:Left low back pain to great toe Leg worse than back He denies loss of bowel or bladder control, denies dexterity difficulties, reports imbalance due to leg pain. Pain rated 8/10 Pain worse with anything and everything Pain improved with sitting in recliner chair Interventions: medications , heat, ice , chiropractor x 8 weeks Medications: gabapentin 12/24/2023, norco 12/17/2023 , percocet , etodolac, Advair, robaxin, ambein, Past medications: Oxycodone HCL 12/07/2023 Physical Therapy: [facility] in [facility] - attended twice - discontinued by PCP due to patient's pain Treating Physicians: Dr. Milton - PCP Hedy Hughes [facility] neurosurgery Julianna Kumari [facility] Pain management - left L3,L4 TFESI ordered - scheduled for 01/15/2024 Dr. Collado - Pain management - [facility] health care Dr. Sen - [facility] Health Care History of Spine Injections/Surgery: None Other Issues Addressed at the Visit Today: None. Precipitating Event: None PAIN EVALUATION 12/31/2023 1209 01/07/2024 0752 Pain Level: 9 8 Pain Location: Back-Lower Back-Lower radiates to L leg Description: Numbness;Pressure;Pulsa ting;Shooting;Stabbing/ Not Incision;Tightness Sharp;Throbbing;Pressur e;Burning Duration Amount of Time: 24 1 Duration Units: Months Months Frequency: Continuous Continuous Intervention/Comfort measure: Medication;Reposition;R elaxation;Cold;Heat;Mas parul;Pillow support;Positioning -- Comments: Controlling pain with gabapentin -- Litigation: No Workers' Compensation: No YELLOW AND BLUE FLAGS YES-Neg Attitude; Back Pain is Disabling YES-Avoiding Activity (for Fear of Pain) No-Depression or Anxiety Disorders No-Social Problems No-Substance Use Disorder No-Job Dissatisfaction No-Financial Disincentives Patient Entered Questionnaires 12/31/2023 Spine Questions Pain Location: Lower back Pain Duration: More than 5 years Pain over last 6 months: At least half the days in the past 6 months Symptoms from neck/cervical spine: Yes Employment Status: Disabled due to back pain, permanently or temporarily Off work 1 month or more due to back/neck pain: Yes Applied for/receive disability/WC due to low back/neck pain Yes Involved in law suit/legal claim: No 12/31/2023 Neck Questionnaires Benzel Modified MICHAEL Score 12 (A lower score indicates increased pain and issues.) PROMIS Score Percentiles 12/31/2023 Physical Health Physical Function Percentile 1 Sleep Percentile 3 Fatigue Percentile 4 Pain Interference Percentile 1 12/31/2023 PROMIS SOCIAL ROLE SCORE Social Role Satisfaction Percentile 1 12/31/2023 PROMIS Global Health Scale Physical Health Percentile 2 Mental Health Percentile 5 Percentiles provide an indication of how the patient's score ranks in relation to the general population. Higher percentile rankings indicate better function/quality of life. 50th percentile is the average of the general population and indicates half of respondents had a worse score. Depression Screening: PHQ-9 Self-Harm (Item 9) response options: 0 Not at all 1 Several days 2 (more content not included)... Normal [facility] RONNY REEVES ([id number]) 1970 M Date Time Provider Department 01/07/24 DESIRAE LO [facility] During your visit today, we recorded the following information about you: Desirae Lo APRN.DOLL MAKER 01/07/2024 2:00 PM Signed Returned patient's call regarding today's appointment and ED evaluation. He was verified by name and birthday, at time of call patient's Sister Hedy, was present with patient consent. At ED visit this morning he was diagnosed with left lower extremity DVT, and started on Eliquis. At discharge he was advised to follow-up with primary care and vascular medicine. He has a follow-up with primary care scheduled for 01/11/2024. He states that he will be attempting to establish with vascular medicine closer to his residence. He did verbalize that if he is unable to establish with vascular medicine close to home, he will be contacting the [facility] for follow-up. At time of call he states that once he is cleared to proceed with interventional procedures he would like to return to this provider's care and will be canceling upcoming injection with pain management, as he is not able to stop Eliquis at this time. He was advised that once he has been evaluated by vascular medicine, primary care, and is able to stop Eliquis to contact my office and we will assist with scheduling him follow-up evaluation for possible interventional procedure. All questions answered at time of call. 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 - amLODIPine (NORVASC) 10 mg tablet TAKE 1 TABLET(10 MG) BY MOUTH IN THE MORNING - Zolpidem (AMBIEN CR) 12.5 mg CR tablet - apixaban (ELIQUIS DVT-PE TREAT 30D START) 5 mg (74 tabs) Take 2 tablets (10 mg) by mouth twice daily for 7 days. Then take 1 tablet (5 mg) by mouth twice daily for 23 days - apixaban (ELIQUIS) 5 mg tab(s) Take 1 tablet by mouth two times a day. Patient should start on February 06, 2024. - L. RHAMNOSUS GG/INULIN (CULTURELLE PROBIOTICS ORAL) Take by mouth every 48 hours. - zolpidem (AMBIEN) 10 mg Tab Take by mouth at bedtime as needed. - mirtazapine 30 mg tablet Take 30 mg by mouth daily at bedtime. - fluticasone-salmeterol (ADVAIR DISKUS) 100-50 mcg/dose DsDv Inhale 1 Puff as instructed as needed. - Polyethylene Glycol 3350 (MIRALAX) 17 gram/dose powder 1/2 capful in 8 oz of any fluid once a day. Problem List As Of Date 01/07/2024 Noted Resolved Deep venous thrombosis (HCC) [I82.409] 01/07/2024 Acute deep vein thrombosis (DVT) of left tibial*01/07/2024 Encounter Status:Closed by DESIRAE LO on 01/07/24 [facility] Telephone ([facility]) RONNY REEVES ([id number]) 1970 M Date Time Provider Department 01/07/24 PRINCE HASTINGS [facility] During your visit today, we recorded the following information about you: Prince Hastings RPh 01/07/2024 4:43 PM Signed Received call from patient stating apixaban was not covered through patient's insurance. Called and spoke with pharmacist at [id number] [place] [address] - [address] [phone] [place] [address]. [facility] pharmacist stated apixaban starter pack was not in stock and thus they were unable to bill insurance until medication is in stock. However, [facility] pharmacist was able to fill as tablets since the starter pack was not in stock. This [facility] provided $30-day free trial card over the phone, confirmed with [facility] pharmacist that this patient will have $0 copay for initial supply. This [facility] provided $10 copay card over the phone and the [facility] pharmacist entered this under patient's profile for future monthly dispenses so that may copay per month will be $10. This [facility] called and updated patient with $0 initial supply and $10 monthly copay after that. Patient verbalized understanding. Thank you for allowing me to participate in this patient's care. Prinec Hastings RPh Allergies As of Date: 01/07/2024 (No Known Allergies) Date Reviewed: 01/07/2024 Reviewed by: Porfirio Umanzor RN - Fully Assessed Reason for Visit: Medication Problem [65] Prescriptions as of 01/07/2024 - gabapentin (NEURONTIN) 100 mg capsule Start with 1-3 pills at bedtime, then if tolerates well, may add 1-3 in the morning. - amLODIPine (NORVASC) 10 mg tablet TAKE 1 TABLET(10 MG) BY MOUTH IN THE MORNING - Zolpidem (AMBIEN CR) 12.5 mg CR tablet - apixaban (ELIQUIS DVT-PE TREAT 30D START) 5 mg (74 tabs) Take 2 tablets (10 mg) by mouth twice daily for 7 days. Then take 1 tablet (5 mg) by mouth twice daily for 23 days - apixaban (ELIQUIS) 5 mg tab(s) Take 1 tablet by mouth two times a day. Patient should start on February 06, 2024. - L. RHAMNOSUS GG/INULIN (CULTURELLE PROBIOTICS ORAL) Take by mouth every 48 hours. - zolpidem (AMBIEN) 10 mg Tab Take by mouth at bedtime as needed. - mirtazapine 30 mg tablet Take 30 mg by mouth daily at bedtime. - fluticasone-salmeterol (ADVAIR DISKUS) 100-50 mcg/dose DsDv Inhale 1 Puff as instructed as needed. - Polyethylene Glycol 3350 (MIRALAX) 17 gram/dose powder 1/2 capful in 8 oz of any fluid once a day. Problem List As Of Date 01/07/2024 Noted Resolved Deep venous thrombosis (HCC) [I82.409] 01/07/2024 Acute deep vein thrombosis (DVT) of left tibial*01/07/2024 Encounter Status:Closed by PRINCE HASTINGS on 01/07/24 [facility] CONSULTon 01-07-2024 CONSULT HNO ID: [id number] Author: DWAYNE DUQUE MD Service: Vascular Surgery Author Type: Physician Type: Consults Filed: 01/07/2024 12:52 Note Text: [facility]ULAR SURGERY INITIAL CONSULTVascular Surgery Consult Note Service Date: 01/07/2024 Admit Date: 01/07/2024 Service Time: 12:44 PM LOS: 0 Vascular Physician: Dwayne Duque MD Subjective Chief Complaint: LLE pain and swelling HPI: Ronny Reeves is a 53 year old White male referred by Dr. Flores for an opinion regarding management of LLE pain/swelling. 53 y/o M w/ hx of lumbar disc herniation with low back pain who presents with LLE pain and swelling for the past several days. Pt states that the pain is constant, located in the calf but can radiate to the L foot and make his L foot feel cold. No prior history of blood clots. No history of clotting within the family. Pt states he remains active but has been a little less active recently given his low back pain. Location: left and lower Quality: acute Severity: moderate Duration: ~3 days Consultation requested by Dr. Flores for an opinion regarding THE ABOVE. My final recommendations will be communicated back to the requesting physician by way of shared Medical record or letter to requesting physician via US mail PAST MEDICAL HISTORY Diagnosis Date Asthma Depression PAST SURGICAL HISTORY Procedure Laterality Date REMOVAL OF ANAL FISSURE SPHINCTEROTOMY FAMILY HISTORY Problem Relation Age of Onset None Other Blood Clots No Family History Social History Tobacco Use Smoking status: Never Substance Use Topics Alcohol use: Yes Comment: weekends (Not in a hospital admission) No current facility-administered medications for this encounter. Medication and Non-Pharmacologic VTE Prophylaxis/Anticoagula nts VTE Prophylaxis: Per ED ALLERGIES No Known Allergies COMPLETE REVIEW OF SYSTEMS Constitutional: No weight loss, malaise or fevers. HEENT: No changes in hearing or vision Respiratory: Negative for cough, wheezing or shortness of breath at rest. Positive for intermittent shortness of breath with exertion. Cardiovascular: Negative for chest pain, leg swelling or palpitations Gatrointestinal: Negative for abdominal discomfort, blood in stools or black stools Genitourinary: No dysuria or hematuria Musculoskeletal: Positive for back pain and L leg pain/swelling Endocrine: Negative for cold or heat intolerance, polyuria, polydipsia and goiter Hematology/Lymphatic: Negative for prolonged bleeding, bruising easily or swollen nodes Neurologic: No syncope, paralysis, seizures or tremors Integumentary: Negative for lesions, rash, and itching. Objective PHYSICAL EXAM Physical Exam Performed CONSTITUTIONAL: Well developed and No acute distress NEUROLOGIC/PSYCHIATRIC: Alert and No gross focal neurologic deficits HEENT: Anicteric sclera, supple neck LUNGS: Clear HEART: Regular rate AND rhythm ABDOMEN: Soft, Non-tender, and Non-distended INTEGUMENTARY: Wound - No SURGICAL SITES: None MUSCULOSKELETAL: Mild LLE edema Pulses/Signals: Carotid Radial Dorsalis Pedis Posterior Tibial Right Palpable +2 Palpable +2 Palpable +2 Palpable +2 Left Palpable +2 Palpable +2 Palpable +2 Palpable +2 DATA: Laboratory: Recent Labs 01/07/24 1045 WBC 8.68 HB 15.5 HCT 45.0 PLT 251 Recent Labs 01/07/24 1045 NA 138 K 3.7 BUN 14 CREAT 1.02 GLUC 84 Recent Labs 01/07/24 1045 INR 1.0 Radiology: I have personally reviewed the following images/data: 01/07/2024 - Left Lower Extremity DVT Ultrasound POSITIVE STUDY FOR ACUTE PROXIMAL DVT IN THE LEFT LOWER EXTREMITY. POSITIVE STUDY FOR ACUTE CALF DVT IN THE LEFT LOWER EXTREMITY. POSITIVE STUDY FOR SUPERFICIAL THROMBOPHLEBITIS IN THE IMAGED SEGMENTS OF THE LEFT LOWER EXTREMITY. 01/07/2024 - Left Lower Extremity Arterial Duplex Ultrasound Incidental finding: acute DVT noted in the left popliteal vein, gastroc veins tibial vein, and peroneal vein. LEFT SIDE External iliac artery, Common femoral artery, Profunda femoral artery, Superficial femoral artery, Popliteal artery, Posterior tibial artery, Peroneal artery and Anterior tibial artery : patent . Impression: Ronny Reeves is a 53 year old White male with an acute L popliteal and tibial vein DVT likely provoked in setting of bulging lumbar disc. No evidence of LLE phlegmasia. Plan: - Recommend anticoagulation x3 months for DVT, follow-up with PCP or vascular medicine in outpatient setting for DVT - Will sign off for now, please call with questions SIGNATURE: Dwayne Duque MD PATIENT NAME: Ronny Reeves DATE: January 07, 2024 TIME: 12:52 PM [facility] CONSULT HNO ID: [id number] Author: ADARSH PARRA PA-C Service: Vascular Surgery Author Type: Physician Awake Overnight Monitor Type: Consults Filed: 01/07/2024 12:56 Note Text: VASCULAR SURGERY CONSULT NOTE SERVICE DATE: 01/07/2024 SERVICE TIME: 10:34 AM REASON FOR CONSULT: DVT REQUESTING PHYSICIAN: Dr. Flores PRIMARY CARE PHYSICIAN: Shaikh Mckinley MD Subjective HISTORY OF PRESENT ILLNESS: Ronny Reeves is a 53 year old male hx lumbar disc herniation w/ low back and leg pain x1 month. Pain began after receiving caregivers homecare. He was seen by outpatient spine clinic today where is was noted that he had left leg pain/swelling w/ concern for DVT prompting him to come to ED for further evaluation. He has been experiencing pain in his left calf for 2-3 days. He injured his back in November and has been more sedentary than usual, off work, generally inactive. He denies personal family history of clotting disorders, malignancy, prior DVT/stroke. He does not smoke. No notable cardiorenal history. He denies chest pain, SOB, fever, contralateral leg pain Workup: VSS, AF, labs unremarkable Vascular imaging reveals acute DVT of the left lower extremity PAST MEDICAL HISTORY Diagnosis Date Asthma Depression PAST SURGICAL HISTORY Procedure Laterality Date REMOVAL OF ANAL FISSURE SPHINCTEROTOMY FAMILY HISTORY Problem Relation Age of Onset None Unknown Social History Tobacco Use Smoking status: Never Substance Use Topics Alcohol use: Yes Comment: weekends (Not in a hospital admission) No current facility-administered medications for this encounter. ALLERGIES No Known Allergies COMPLETE REVIEW OF SYSTEMS: Pertinent ROS elicited and otherwise noncontributory unless noted in HPI Objective PHYSICAL EXAM: BP 139/87 Pulse 89 Temp 98 Resp 18 Wt 152 lb (68.9kg) SpO2 97% O2 Therapy: Room Air Physical Exam Performed GENERAL: Alert, no distress, cooperative ABDOMEN: Soft, nontender EXTREMITIES: BLE soft, normal skin texture, temperature. There is mild swelling of the left lower extremity. The left calf is tender to deep palpation. There is no palpable cord or significant erythema. PULSES: right dp/pt strong, palpable. left dp faint but is palpable, pt strong. DATA: Diagnostic tests reviewed for today's visit: Most recent labs and imaging results. 01/07/2024 US ARTERIAL DUPLEX LEFT LEG: IMPRESSION Incindental finding: acute DVT noted in the left popliteal vein, gastroc veins tibial vein, and peroneal vein. Dr. Amy Hargrove was notified with results at 10:30 am. LEFT SIDE External iliac artery, Common femoral artery, Profunda femoral artery, Superficial femoral artery, Popliteal artery, Posterior tibial artery, Peroneal artery and Anterior tibial artery : patent . 01/07/2024 US DVT EXAM LEFT LEG: IMPRESSION: positive study for acute proximal dvt in the left lower extremity. positive study for acute calf dvt in the left lower extremity. positive study for superficial thrombophlebitis in the imaged segments of the left lower extremity. Impression/Recommendati ons ASSESSMENT: Ronny Reeves is a 53 year old male hx lumbar disc herniation w/ recent immobility who presents w/ acute distal DVT of the LLE. PLAN: -no acute surgical intervention required -recommend AC w/ either Eliquis or Xarelto x3 months for DVT -compression, ice, prn pain control for symptomatic relief -has PCP follow-up on 01/10 for further care Plan of care d/w Dr. Polly Ogden spent a total of 60 minutes on the date of the service which included preparing to see the patient, [id number] patient care, completing clinical documentation, obtaining and/or reviewing separately obtained history, and performing a medically appropriate examination. SIGNATURE: Adarsh Parra PA-C PATIENT NAME: Ronny Reeves DATE: January 07, 2024 TIME: 10:34 AM PAGER: [phone] ' Normal [facility] Comprehensive metabolic 2000 panelon 01-07-2024 Albumin [Mass/Vol] 3.8 g/dL Low 3.9-4.9 [facility] Comment on above: Order Comment: Keith mckeon Type: BLOOD SPECIMEN Ordering Facility: [facility] Address: [address] [place] [address] Performed By: #### 2 4323-8 #### [facility] CLIA [id number] [facility] [place] [address] [place] ALP [Catalytic activity/Vol] 100 U/L Normal 38-113 [facility] Comment on above: Order Comment: Keith mckeon Type: BLOOD SPECIMEN Ordering Facility: [facility] Address: [address] [place] [address] Performed By: #### 2 4323-8 #### [facility] CLIA [id number] [address] [place] [address] [place] ALT [Catalytic activity/Vol] 22 U/L Normal 10-54 [facility] Comment on above: Order Comment: Speci men Type: BLOOD SPECIMEN Ordering Facility: [facility] Address: [address] [place] [address] Performed By: #### 2 4323-8 #### [facility] CLIA [id number] [address] [place] [address] [place] Anion gap [Moles/Vol] 11 mmol/L Normal 9-18 [facility] Comment on above: Order Comment: Speci men Type: BLOOD SPECIMEN Ordering Facility: [facility] Address: [address] [place] [address] Performed By: #### 2 4323-8 #### [facility] CLIA [id number] [place] [address] [place] AST [Catalytic activity/Vol] 18 U/L Normal 14-40 [facility] Comment on above: Order Comment: Speci men Type: BLOOD SPECIMEN Ordering Facility: [facility] Address: [address] [place] [address] Performed By: #### 2 4323-8 #### [facility] IA [id number] [address] [place] [address] [place] Bilirubin [Mass/Vol] 0.5 mg/dL Normal 0.2-1.3 [facility] Comment on above: Order Comment: Speci men Type: BLOOD SPECIMEN Ordering Facility: [facility] Address: [address] [place] [address] Performed By: #### 2 4323-8 #### [facility] CLIA [id number] [address] [place] [address] [place] Calcium [Mass/Vol] 9.1 mg/dL Normal 8.5-10.2 [facility] Comment on above: Order Comment: Speci men Type: BLOOD SPECIMEN Ordering Facility: [facility] Address: [address] [place] [address] Performed By: #### 2 4323-8 #### [facility] CLIA [id number] [address] [place] [address] [place] Chloride [Moles/Vol] 101 mmol/L Normal 97-105 [facility] Comment on above: Order Comment: Speci men Type: BLOOD SPECIMEN Ordering Facility: [facility] Address: [address] [place] [address] Performed By: #### 2 4323-8 #### [facility] CLIA [id number] [address] [place] [address] [place] CO2 [Moles/Vol] 26 mmol/L Normal 22-30 [facility] Comment on above: Order Comment: Speci men Type: BLOOD SPECIMEN Ordering Facility: [facility] Address: [address] [place] [address] Performed By: #### 2 4323-8 #### [facility] CLIA [id number] [address] [place] [address] [place] Creatinine [Mass/Vol] 1.02 mg/dL Normal 0.73-1.22 [facility] Comment on above: Order Comment: Speci men Type: BLOOD SPECIMEN Ordering Facility: [facility] Address: [address] [place] [address] Performed By: #### 2 4323-8 #### [facility] CLIA [id number] [address] [place] [address] [place] Creatinine and Glomerular filtration rate.predicted panel (S/P/Bld) 87 mL/min/1.73m??? Normal >=60 [facility] Comment on above: Order Comment: Speci men Type: BLOOD SPECIMEN Ordering Facility: [facility] Address: [address] [place] [address] Result Comment: Jeri mated Glomerular Filtration Rate (eGFR) is calculated using the 2020 CKD-EPI creatinine equation. This equation utilizes serum creatinine, sex, and age as parameters. The creatinine assay has traceable calibration to isotope dilution-mass spectrometry. Refer to KDIGO guidelines for clinical interpretation. In patients with unstable renal function, e.g. those with acute kidney injury, the eGFR may not accurately reflect actual GFR. Performed By: #### 2 4323-8 #### [facility] CLIA [id number] [address] [place] [address] [place] Glucose [Mass/Vol] 84 mg/dL Normal 74-99 [facility] Comment on above: Order Comment: Speci men Type: BLOOD SPECIMEN Ordering Facility: [facility] Address: [address] [place] [address] Result Comment: The [place] Diabetes Association (ADA) provides guidance for cutoff values for fasting glucose and random glucose. The ADA defines fasting as no caloric intake for at least 8 hours. Fasting plasma glucose results between 100 to 125 mg/dL indicate increased risk for diabetes (prediabetes). Fasting plasma glucose results greater than or equal to 126 mg/dL meet the criteria for diagnosis of diabetes. In the absence of unequivocal hyperglycemia, results should be confirmed by repeat testing. In a patient with classic symptoms of hyperglycemia or hyperglycemic crisis, random plasma glucose results greater than or equal to 200 mg/dL meet the criteria for diagnosis of diabetes. Reference: Standards of Medical Care in Diabetes 2016, [place] Diabetes Association. Diabetes Care. 2016.39(Suppl 1). Performed By: #### 2 4323-8 #### [facility] CLIA [id number] [address] [place] [address] [place] Potassium [Moles/Vol] 3.7 mmol/L Normal 3.7-5.1 [facility] Comment on above: Order Comment: Montyi men Type: BLOOD SPECIMEN Ordering Facility: [facility] Address: [address] [place] [address] Performed By: #### 2 4323-8 #### [facility] CLIA [id number] [address] [place] [address] [place] Protein [Mass/Vol] 6.4 g/dL Normal 6.3-8.0 [facility] Comment on above: Order Comment: Speci men Type: BLOOD SPECIMEN Ordering Facility: [facility] Address: [address] [place] [address] Performed By: #### 2 4323-8 #### [facility] CLIA [id number] [place] [address], [place] [address] [place] [facility] Sodium [Moles/Vol] 138 mmol/L Normal 136-144 [facility] Comment on above: Order Comment: Speci men Type: BLOOD SPECIMEN Ordering Facility: [facility] Address: [address] [id number] Performed By: #### 2 4323-8 #### [facility] CLIA [id number] [address] [place] [address] [place] Urea nitrogen [Mass/Vol] 14 mg/dL Normal 9-24 [facility] Comment on above: Order Comment: Speci men Type: BLOOD SPECIMEN Ordering Facility: [facility] Address: [address] [id number] Performed By: #### 2 4323-8 #### [facility] CLIA [id number] [address] [place] [address] [place] [facility] ED NOTEon 01-07-2024 ED NOTE HNO ID: [id number] Author: QIANA ALEJANDRA RN Service: Emergency Medicine Author Type: Registered Nurse Type: ED Notes Filed: 01/07/2024 13:25 Note Text: Discharge paperwork, follow up appointments/care, prescriptions discussed with patient. No questions at this time. Peripheral IV removed prior to discharge. Patient taken out of department at time of discharge. [facility] ED NOTE HNO ID: [id number] Author: QIANA ALEJANDRA RN Service: Emergency Medicine Author Type: Registered Nurse Type: ED Notes Filed: 01/07/2024 12:49 Note Text: Pharmacy at bedside. [facility] ED NOTE HNO ID: [id number] Author: QIANA ALEJANDRA RN Service: Emergency Medicine Author Type: Registered Nurse Type: ED Notes Filed: 01/07/2024 10:55 Note Text: US at bedside. [facility] ED PROV NOTEon 01-07-2024 ED PROV NOTE HNO ID: [id number] Author: AMY FLORES DO Service: Emergency Medicine Author Type: Physician Type: ED Provider Notes Filed: 01/07/2024 15:48 Note Text: ED Provider Note Patient Name: Ronny Reeves : 1970 SERVICE DATE: 01/07/24 History Patient presents with: Leg Pain: Pt has had LLE pain since Thursday. Pt evaluated by PCP and had difficult time doppler pulses to left foot and requesting DVT eval Patient presents to the ED to rule out a blood clot. He was having some left lower extremity swelling. No injury or trauma. No significant pain. No erythema or rash. He saw the spine provider this morning for a herniated disc in his back. They were not able to Doppler a DP pulse so they referred him to the ER. He has no chest pain or shortness of breath. No history of DVT or PE. Denies tobacco use. No history of stents. Seen with his sister at the bedside. He denies any weakness as well in the lower extremity. PAST MEDICAL HISTORY Diagnosis Date Asthma Depression PAST SURGICAL HISTORY Procedure Laterality Date REMOVAL OF ANAL FISSURE SPHINCTEROTOMY FAMILY HISTORY Problem Relation Age of Onset None Other Blood Clots No Family History Social History Tobacco Use Smoking status: Never Smokeless tobacco: Not on file Substance and Sexual Activity Alcohol use: Yes Comment: weekends Drug use: Not on file Sexual activity: Not on file ALLERGIES No Known Allergies Review of Systems Respiratory: Negative for shortness of breath. Cardiovascular: Positive for leg swelling. Negative for chest pain. Gastrointestinal: Negative for abdominal pain. Musculoskeletal: Positive for back pain. Skin: Negative for rash. Neurological: Negative for weakness and numbness. Physical Exam Vitals BP Pulse Temp Temp src Resp SpO2 Weight Height 01/07/24 0929 01/07/24 0929 01/07/24 0929 -- 01/07/24 1025 01/07/24 0929 01/07/24 0929 -- 139/87 (!) 95 36.7 ?C (98 ?F) 18 95 % 68.9 kg (152 lb) Physical Exam Vitals and nursing note reviewed. Constitutional: General: He is not in acute distress. Appearance: He is well-developed. HENT: Head: Normocephalic and atraumatic. Eyes: Conjunctiva/sclera: Conjunctivae normal. Cardiovascular: Rate and Rhythm: Normal rate and regular rhythm. Heart sounds: Normal heart sounds. Pulmonary: Effort: Pulmonary effort is normal. Breath sounds: Normal breath sounds. Abdominal: General: Abdomen is flat. There is no distension. Palpations: Abdomen is soft. Musculoskeletal: General: No swelling or tenderness. Normal range of motion. Cervical back: Normal range of motion and neck supple. Comments: Left foot appears to have good color. Warm to the touch. Not dusky or blue. He has a palpable DP PT pulse on my exam. I confirmed the pulses with Doppler.. Sensation appears intact. Normal dorsiflexion plantarflexion of the foot. Popliteal pulses palpable and normal. Skin: General: Skin is warm and dry. Neurological: General: No focal deficit present. Mental Status: He is alert. Sensory: No sensory deficit. Motor: No weakness. Psychiatric: Mood and Affect: Mood normal. Behavior: Behavior normal. Diagnostic Testing ED Labs Ordered and Reviewed COMPREHENSIVE METABOLIC PANEL - Abnormal; Notable for the following components: Result Value Ref Range Albumin 3.8 (*) 3.9 - 4.9 g/dL All other components within normal limits COMPLETE BLOOD COUNT AND DIFFERENTIAL - Abnormal; Notable for the following components: Abs Immature Gran 0.16 (*) <0.10 k/uL All other components within normal limits PROTHROMBIN TIME - Normal Procedures ED Course / Clinical Impression Clinical Impressions as of 01/07/24 1548 Pain of left calf Acute deep vein thrombosis (DVT) of proximal vein of left lower extremity (HCC) MDM / Disposition / Plan Arterial ultrasound reassuring. DVT ultrasound is positive for DVT. Discussed with vascular surgery service. They evaluated him in the ED. They recommend anticoagulation. Discussed with ED pharmacist. Recommends Eliquis. Recommend follow-up with PCP. Given referral to vascular medicine as well. Return ED precaution reviewed and provided and he voiced agreement this plan of care. History and Record Review Clinical information obtained from an independent historian. History obtained from or confirmed by: family member. External record(s) reviewed: prior outpatient record. Findings from review of outpatient records: Spine service note, outpatient, reviewed Differential Diagnoses - DVT is more likely for the following reason(s): consistent with imaging - Serial occlusion is less likely for the following reason(s): no evidence on imaging and HANDP not suggestive Management Management of the patient was discussed with:wardrobe consultant and pharmacist Discussion with wardrobe consultant included: Vascular surgery Discussion with pharmacist included: ED pharmacist Radiology Repor (more content not included)... Normal [facility] PT EDon 01-07-2024 PT ED HNO ID: [id number] Author: PRINCE HASTINGS RPh Service: Pharmacy Author Type: Pharmacist Type: Patient Education Filed: 01/07/2024 13:19 Note Text: PHARMACY ANTICOAGULATION EDUCATION Patient Name: Ronny Reeves Account #: Data Unavailable Admission Date: 01/07/2024 9:34 AM Date of Contact: January 07, 2024 Time of Contact: 1:19 PM Patient anticipated to be discharged on Apixaban as oral anticoagulation therapy. Anticoagulant history: Patient is new to anticoagulation therapy Indication for oral anticoagulation: deep vein thrombosis (DVT) Anticoagulant education status: Patient received full anticoagulation education Reason for taking anticoagulation How this anticoagulant works When to take medication and what to do if a dose is missed Drug interactions (Rx, OTC, herbal) and importance of notifying the doctor with any changes Do not take or discontinue any medication or over the counter medication except on the advice of the physician or pharmacist Signs/symptoms of bleeding and what to do if they occur Precautionary measures to decrease trauma/bleeding Signs/symptoms of thrombosis and what to do if they occur Need to limit or avoid alcohol consumption Carrying identification Importance of notifying healthcare provider when hospitalizations occur and when another healthcare provider has asked them to stop/hold anticoagulation medication before any procedure Importance of notifying all healthcare providers they are taking an anticoagulant Use of control measures, if applicable The importance of taking anticoagulation medication as instructed and the potential ramifications of non-compliance were explained to the patient The patient was provided supplemental material which includes the following topics: compliance Issues, follow-up with physician, follow-up monitoring, potential adverse drug reactions, and interactions. Prince Hastings RPh Normal [facility] PT panel Coag (PPP)on 2023 INR Coag (PPP) [Relative time] 1.0 {INR} Normal 0.9-1.3 [facility] Comment on above: Order Comment: Speci men Type: BLOOD SPECIMEN Ordering Facility: [facility] Address: [address] [place] [address] Result Comment: Marcia min K Antagonist (VKA) Therapeutic Range: INR 2 to 3 (Target INR of 2.5) Note: For patients treated with VKA drugs, such as warfarin, the [place] [employer] 2012 Guideline recommends a therapeutic INR range of 2 to 3 (target INR of 2.5). This recommendation includes high-risk patients with antiphospholipid syndrome with previous arterial or venous thromboembolism, current-generation mechanical or bioprosthetic aortic heart valve replacement. Note: Patients with mechanical aortic valve replacement and additional risk factors for thromboembolic events (atrial fibrillation, previous thromboembolism, LV dysfunction, hypercoagulable conditions) or an older generation mechanical AVR (i.e., ball in-Cage) or any mechanical MVR should have a INR therapeutic range of 2.5 to 3.5 (target INR of 3). Pavel GH, et al. Chest 2012, 141:7S-47S Gia RA et al. [facility] 2017, 70: 252-289 Performed By: #### 3 4528-0 #### [facility] CLIA [id number] [facility]. [address] [place] [facility] PT Coag (PPP) [Time] 10.9 s Normal 9.7-13.0 [facility] Comment on above: Order Comment: Speci men Type: BLOOD SPECIMEN Ordering Facility: [facility] Address: [address] [place] [address] Performed By: #### 3 4528-0 #### [facility] CLIA [id number] [facility]. [address] [place] [id number] [facility] US DVT LOWER LTon 01-07-2024 US DVT LOWER LT * * *Final Report* * * DATE OF EXAM: Jan 07 2024 11:32AM VHU 1006 - US DVT LOWER LT / PROCEDURE REASON: Leg pain or tenderness * * * * Physician Interpretation * * * * EXAMINATION: LEFT LOWER EXTREMITY DEEP VENOUS ULTRASOUND WITH DOPPLER IMAGING CLINICAL HISTORY: TECHNIQUE: Grayscale with compression maneuvers, color Doppler and spectral Doppler imaging of the left proximal deep veins was performed. Grayscale with compression maneuvers of the peroneal and posterior tibial veins was performed. The left great and small saphenous veins were evaluated at their insertion to the deep system. The contralateral common femoral vein was imaged for comparison. Images were obtained and stored in a permanent archive. MQ: [id number] COMPARISON: None RESULT: LEFT LOWER EXTREMITY PROXIMAL DEEP VEINS Distal External Iliac, Common Femoral and proximal Profunda Veins: Compression: Normal Doppler: Normal, spontaneous respirophasic flow. Normal response to augmentation. Femoral vein: Compression: Normal Doppler: Normal, spontaneous flow. Normal response to augmentation. Popliteal vein: Compression: Abnormal Doppler: Abnormal, absent spontaneous flow. Abnormal (decreased or absent) response to augmentation. CALF DEEP VEINS Peroneal veins: Not identified. Posterior tibial veins: Not identified. Gastrocnemius and Soleal veins: Not imaged. SUPERFICIAL VEINS Great saphenous: Patent and compressible at insertion into common femoral vein; not otherwise assessed. Small Saphenous: Abnormal compression. RIGHT LOWER EXTREMITY (FOR COMPARISON) Common Femoral Vein: Compression: Normal Doppler: Normal, spontaneous respirophasic flow. Normal response to augmentation. IMPRESSION: POSITIVE STUDY FOR ACUTE PROXIMAL DVT IN THE LEFT LOWER EXTREMITY. POSITIVE STUDY FOR ACUTE CALF DVT IN THE LEFT LOWER EXTREMITY. POSITIVE STUDY FOR SUPERFICIAL THROMBOPHLEBITIS IN THE IMAGED SEGMENTS OF THE LEFT LOWER EXTREMITY. Audiovisual Tech: [email or web address] Transcribe Date/Time: Jan 07 2024 11:37A Dictated by : JESUS AMARO MD This examination was interpreted and the report reviewed and electronically signed by: JESUS AMARO MD on Jan 07 2024 11:52AM EST [id number] Normal [facility] LEG ARTERIAL PERIPH UNL V LABon 01-07-2024 LEG ARTERIAL PERIPH UNL VAS LAB Non-Invasive Vascular Laboratory [facility] Lower Extremity Arterial Duplex Unilateral - Left Date of service/time: 01/07/2024 10:05:22 AM Name: MR. RONNY REEVES Date of : 1970 Age: 53 years Gender: M Clinical Indication Absent pulse left foot. TECHNIQUE -------- An arterial duplex ultrasound examination was performed, including grayscale imaging and color Doppler and spectral Doppler examination of the below mentioned arteries. FINDINGS -------- LEFT ARTERIES External iliac distal: PSV: 93 cm/s. EDV: 0 cm/s. Monophasic, intermediate resistive waveform. Common femoral proximal: PSV: 73 cm/s. EDV: 0 cm/s. Monophasic, high resistive waveform. Common femoral mid: PSV: 66 cm/s. EDV: 0 cm/s. Monophasic, high resistive waveform. Common femoral distal: PSV: 68 cm/s. EDV: 0 cm/s. Monophasic, high resistive waveform. Profunda femoral proximal: PSV: 51 cm/s. EDV: 0 cm/s. Monophasic, high resistive waveform. Superficial femoral origin: PSV: 74 cm/s. EDV: 0 cm/s. Monophasic, high resistive waveform. Superficial femoral proximal: PSV: 87 cm/s. EDV: 0 cm/s. Monophasic, high resistive waveform. Superficial femoral mid: PSV: 93 cm/s. EDV: 0 cm/s. Monophasic, high resistive waveform. Superficial femoral distal: PSV: 85 cm/s. EDV: 0 cm/s. Monophasic, high resistive waveform. Popliteal proximal: PSV: 71 cm/s. EDV: 0 cm/s. Monophasic, high resistive waveform. Popliteal mid: PSV: 65 cm/s. EDV: 0 cm/s. Monophasic, high resistive waveform. Popliteal distal: PSV: 69 cm/s. EDV: 0 cm/s. Monophasic, high resistive waveform. Posterior tibial proximal: PSV: 65 cm/s. EDV: 0 cm/s. Monophasic, high resistive waveform. Posterior tibial mid: PSV: 61 cm/s. EDV: 0 cm/s. Monophasic, high resistive waveform. Posterior tibial distal: PSV: 77 cm/s. EDV: 0 cm/s. Monophasic, high resistive waveform. Peroneal proximal: PSV: 81 cm/s. EDV: 0 cm/s. Monophasic, high resistive waveform. Peroneal mid: PSV: 72 cm/s. EDV: 0 cm/s. Monophasic, high resistive waveform. Peroneal distal: PSV: 33 cm/s. EDV: 0 cm/s. Monophasic, high resistive waveform. Anterior tibial proximal: PSV: 47 cm/s. EDV: 0 cm/s. Monophasic, high resistive waveform. Anterior tibial mid: PSV: 42 cm/s. EDV: 0 cm/s. Monophasic, high resistive waveform. Anterior tibial distal: PSV: 53 cm/s. EDV: 0 cm/s. Monophasic, high resistive waveform. IMPRESSION Incindental finding: acute DVT noted in the left popliteal vein, gastroc veins tibial vein, and peroneal vein. Dr. Amy Hargrove was notified with results at 10:30 am. LEFT SIDE External iliac artery, Common femoral artery, Profunda femoral artery, Superficial femoral artery, Popliteal artery, Posterior tibial artery, Peroneal artery and Anterior tibial artery : patent . Technologist: Robert Nieto Marylu Ordering physician: AMY FLORES Referring physician: AMY FLORES DO Interpreting physician: Chicho Parra MD, RPDAVON Final CC [employer] [facility] Image : [id number] See Link below for Image Normal [facility] 01-04-2024 [facility] Telephone ([facility]) RONNY REEVES ([id number]) 1970 M Date Time Provider Department 01/04/24 DESIRAE LO [facility] During your visit today, we recorded the following information about you: Desirae Lo APRN.DOLL MAKER 01/04/2024 4:11 PM Signed Attempted to contact patient in regards to upcoming appointment on 01/07/2024. No imaging is available in patient's chart, attempted to leave voicemail requesting patient to bring imaging to his appointment, this attempt was unsuccessful, as patient's voicemail box is full. 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 RHAMNOSUS GG/INULIN (CULTURELLE [employer]BIOT[employer] ORAL) Take by mouth every 48 hours. - zolpidem (AMBIEN) 10 mg Tab Take by mouth at bedtime as needed. - mirtazapine 30 mg tablet Take 30 mg by mouth daily at bedtime. - fluticasone-salmeterol (ADVAIR DISKUS) 100-50 mcg/dose DsDv Inhale 1 Puff as instructed as needed. - Ibuprofen 100 mg chewable tablet Take 100 mg by mouth every 8 hours as needed. - Polyethylene Glycol 3350 (MIRALAX) 17 gram/dose powder 1/2 capful in 8 oz of any fluid once a day. Problem List As Of Date: 01/04/2024 (None) Encounter Status:Closed by DESIRAE LO on 01/04/24 Normal [facility] Operative Reporton Operative Report [id number] D:127 Normal [facility] Coding Summary.on 12-04-2022 Coding Summary. CD:[id number] Ww+ PGhlYWQ+VI9KIYStX65cdVY giV3jY7UDPJxEFictXJBJRL rWYgAbnnSoLB6xvDBeAWCa IC8+EQ3nZWRzLxkksRYsz3G 1kDO6B87sex8nFJzkvVQ7CW AeGjUafbbdb9syfPg5TMbfR mluOyBt QWJuzF07UIE9jO52Cz87tSB bjVCsm0rrrFu4LySdXQAwWW H8yPvgQFlkg8IfAYSqB15ad IXen4Q4 SSUbuTiomBExXcXrxQN1lK0 bPTmeeeymx9awilvfHbw1jr 04uCMjm1Y8aYI6Z9RlbyO0O GJvbGQg QbuihJSOkB6bgtaol8jrhju bOaCtIUKwVIh1UKl9UTGnsB bdXjSfBY68VCI2TWRjbaSkS 2FsLWFs pMtmHsN3r9A1Re5WG3WDTvj fT2FANRKBVPvqvZG+PC90cj 31L4XfVelqNnc9FLJvTRM2u QK6xD0n HVMbOAeps3B7nWA7M3GrpnR igg2mk1efYFNjWFnvI25nlJ Llo0V7IZBmzVQ4BPWagIraX iBzaG93 Oyc+FOWeuWfac3IdLdqho1i fw5kwsBl1KjlaQIYjgsSlhP ejGAE3h0AyJt9zGEEthJV7t FO1qR6g YiWyEwU5BWwcQ502YeUqhMF oKtdyI95qX8GrpVM+PHRyPj m5RTSzmSclZA1eY7MvGQPjf mctbGVm qZdqUV6dEYObeamsCEQrqE7 wKEAtF4e3NmHsRvG3NOisK4 RxJBAeklxlUl79rE3fWhDwG bK4TUem O3UpxiY8OSPnpZRoABrlCFW 6M97hb3O5YUTfNRTgIAT6pJ W3tX6juEiekhgorJUpdWpym mVydGlj NTvrWJkwD508RITobOjtAgI vZGluZyBEYXRlOiAgMDMvMj MvMjAyMzwvdGQ+ILVbGPE6k WxlPSAn jYXfNCivVm1yqKfmzLqiYM5 xGWIfdhojSJTwzD1cFNFaeD CdyHcuIF0uCGRaswrwp643S iAxMHB0 ECMghWWgG8JxmS6wOoAqBQA pCARbO6HxvSGrMVdtY092PY smSbN4PTEpvaRgZ3BvEMOtk WduOiB0 j6R5Ov2Kn4FdicbrT3YmiSM wRdQvZovlEAq0N3ErXqjrkS I+YW66JJTfAB45PUw7MAQ1e WxlPSdi UTOgB6ZnfI6uOkEdPNOhSDE kOyc+PHRhYmxlIHdpZHRoPS whEELjVqQwuKtmTG1sXk5aI GVyLWNv iTlqqOUjNgRor3maQXAiLQy vDH7seFrvI2RehFW6ZSCtq0 r7Uc37E85jU5RueIR+PGNvb SY4iQM2 lZ9xCwBhYjE6IDikO613MzW aoRFgZxlpi7jwm5qcpDu8Jr U1SBMmpaXzbHplIEB9z6IyK t92L89k IHdpZHRoPSIxNSUiIHZhbGl kdx0ojT6xJh8+YVIubQF4wK O1pZ3mOiIbHoI2TLraO900E nRvcCIv Vjkvo0pzj8twdUp9AtWwLOC eilJgpMslWTT4b1EvKg91J0 XuqDvfr2JjNvf8ll54zDYwu 8U0eVL0 V6IhQPLhuhxfsUWemXafMO9 hMEZeuxffHQFtzC6tPLBlK1 m3YwOdVxV9HLnjS7GjgvY2T GJvbGQg MYNtvJFXxM3ernoiz3umooo iGzFyBLWnAXs2UBx4JPMibU vgCkPfNGW3BvY3GCE5lVSdo V6aaXlo icognK0nZij+OHB1cVHfuZR VPI0gBlgbqNU+JXLuLDQ3mB yoBOqfZRErbF2kFUDvN8p8K iAwLjA1 GYdjH5NqvzV6HNNbqCPhOGD iaVEDdY4hntges0kkxdedFb WrMWHoGPh3XOc8DJIabOzgA iBsZWZ0 NoW4ZTS9sCMvaR4atTpqmsl qfB6lFmx+WxbibBrxXSW8OT p7B4EcDci4OKFuwAjcZY2qh GFkZGlu Mu4tjJefhMfzXK9eQJKfwqo gx849HlRoj2tsZOVogWByVZ yrAII9S39zr4G0RIOmHBFdB CJ5lCR8 wY3tgWcrifbakOBroMdcgvD bxTerEGvqYSfpQ221YJBqrY pmDnCuJNg1T6OrTob9UEUvs TqvGO0v qSXiLUzgWc4hdKiluPvhYG5 iOPLupnskq535NxCvh6ylWN PzjCXzESojCVN9E90wt6P5X CMwMDAw LNA3yBG2zV3fzUrbopfhmTR mdDsgdmVydGljYWwtYWxpZ2 72JZOcuMqvDjFtdGv8F8EuA pb3IEBf pGyuQP8cmYGfVFicPj0iiMq fkCxyYX6jVAEaoutiv087Hi Xup4yaEZHwnIYfDVmiDJV5V 01rm8Z1 NJSdPTAtPHM4iKT0pK3dmPk nbjogbGVmdDsgdmVydGljYW gsIDdvB455BPStdXasJwTjc GllbnQg AWbjUMt4W2OoPgjwjFU+PC9 9MUGqTZ14fGHmzJOmw8sxdB b8KlHgQSUrGBN9qEtgWHaiq 3JkZXIt G75nzUFmm5W6KGMwfZbmgZE dRjHjmJM2lG7eLOhlrfphe0 bmbifsWlmqq6ivfe88jD29F 29sIHdp ZHRoPSIzMCUiIHZhbGlnbj0 poU0bYk8+WNYjdHR5qRZ6yG 0rSRWoVvV8SSvnG396GsTvs CIvPjxj w6okq3xrqQj9MuV7LXJyejZ zmQnuBNA0v2QbVv37M08gPN dpZHRoPSIyMCUiIHZhbGlnb x1ooK7o Ii8+GMIasAI1dJY2jW4mVsB cZuA5OYktF562ByNfsESsOu scL98yO3LvvLV+RKLnGed3E CBzdHls VY9mfPHcUSleZl1aGLL0PfQ sKlHiUWpzK9DdTLBshsyqgf tyqAP6LKXoYBKhgB42Ln9wm DogMTBw wINGiR9fijfhy4zijsccItZ hEWErKNk5XPg3BCVjwFueAg VpVMJ1TjE6FEX8vWWtpX3ha Glnbjog dT9eN6CkSRQrovzuBj16sC6 aMmTkCwB6EFzbYdb+VkFMTE HUX0AbFHcXDKKFOJ15WM17a ZTvg5D4 bZW8G9NxTJRafearvbzefOJ 3MBUmAHLasV74lYHbTAdjRt 7tp3I9a627QYQvLDEewO85D s5rbOen RMPzcNRNkY6hndibq2kyrcy aEoGnGHIoIWo5KQp6SOZuuG wqFaLiOUN7ItY8VWJ8tBFqo K1lxYbj ogfwbM3dGwj+MDMvMTAvMTk 2OTwvdGQ+FLWoBSP3gOugQX mxEHOboZ3uPMNuW5t8FvImJ pP1BVtb L3UdPDVrqgbzAx68vX3zJuC cIfJ2LNpjF3YbxdH8YRYlfH FoXHagKIB7H68sj2G4BCElE DAwMDA7 iWF7iB5ftIguffutxCCbtZm owfHogIelPZbqOCbtH459YK ZztShnBiV9LOerTRRyMK38F F09qPBu f8I4nXI5H5HgXLMzzdolorm ufZD3GZSdHOMmqM60zFAgTG afLh1ui5D1a011OTYvUNYzi A06Sh0v jTaeZOThbWJQpM8ixcejh6m acheyKiIsQTFeCZk0NKf3GS MrhDzqNcCfEDO4RxP1HTF0l PIdzR6g gOqlejwppI5nYbc+TWFsZTw vdGQ+BUFpHIB4bQflTTyzNB AclB1eCITnK3w0VrTbJgG7N GhoQ8Nl TNCtsykbYx42lR9wFdMaJjP 8VVvwB3VoxeZ6JWLfiTYlOM hjZTQ6J86jj5D1LKTyQIGyD UV3sTH2 cB1gqXevpglvhEMcgTfdjaV ljXatAMciEKgaL058MEIuuT znPxolSeGPkv5uDZ2lUwpbv GQ+PC90 ps54H0NxFcofWsc4YOZlVUY 8zSH3iD6fHFGzUSncx8Z3gH J4I5HihbYkho5qi5ikRADwI WrjF04x aTOch9M6JAXtePB2ANBdyFg mWyCjaK79Ovv+PGNvbGdyb3 FnVpgmo7zjv2aoeJc1HuUxW SIgdmFs xAgoKNC4k6RdAa83P35uPUp pZHRoPSIzMCUiIHZhbGlnbj 0gfM9cBh4+FJLryZQ0ySS9s J5gQbBr VzK9HBejB167XdCxpIXnBer nl5ajx9wlsPy2DmZnISRppz VsnNtxVFV3j2YwVr39I7Qkb Nrpm9Os Pne1pr45zCEfs2Q9kPS9N4Y gITRtwdnohFMqtOsgTH0jHP TtopftAWXapX4jXWUwC1z9K iAwLjA1 KXzuQ8FujpV3TPJdpPHpQAF nzQMXxI9pphris0ugswmbAe PuGZTtZCe9CQm6KJOunBgmK iBsZWZ0 RpF4DAO9lKMjlI6ryBmnydo zgM0dAul+HFi2p4vzzZVcSD 6yqLK8UJ69PI96nPZqq4V7c XX6H4Dd RUBjjlsigmjzeNZ1ERUbOFI axW20Kw2htGwcDc2zBVRrSP Z7TVAohMTqO5OsmJ3rIiRcC DAwMDAw D5BygHSgCXsrC421USedPiF 2FJJxuaCpT3AmHTUcdBhdZd P2a0U3Su1MAA93XA46SJ50z FPko7R1 yQT2G2VlVOZrzzkxncdyoTQ 7PKKaZLMuzX16Cz8yyOemWy 1nFJCbGPD2OOVnhTMuF9Emf Y5iXfZq SUWiGDMqH0WahSZyEZigC14 1XAniClK2VFNybkXkJ0JzUB KkjQtxCeH6a1E5Ng6XNn16M J86ZC73 wRHyv9E0jAG6P6AkHEHvtiz zkwrisFX7LPCzDQHysC04Ug 0icZstTf9wJIBpPCO6URIxr WZtU6Pt kY4xYcKaZKQuUMSsC0InjLM bUZzxM909UXfjZfR1SZMtvr MbP6YyMGVcuMteGiR5v1A8Q c2RGPix vyy8Z7NrQqxuyIO+OX39ZSS uSS89hUGevQYtc1cljRe3Eu ZiXWDjSOY5fRfjTAixs1UcO RVrA28u uKCyj2V9 (more content not included)... Normal [facility] Consent for Procedure/Surger yon 12-03-2022 Consent for Procedure/Surgery [id number] :127 Normal [facility] C Urineon 11-29-2022 Bacteria identified Cx Nom (U) Microbiology PROCEDURE: Urine Culture [R1] SOURCE: U Random BODY SITE: COLLECTED DATE/TIME: 11/26/2022 15:48 EDT RECEIVED DATE/TIME: 11/27/2022 11:45 EDT START DATE/TIME: 11/27/2022 11:45 EDT FREE TEXT SOURCE: ESTELITA DAMON, Carleen ARIAS MD, Carleen Nation FINAL REPORTS Final Report [] Verified Date/Time: 11/29/2022 07:16 EDT No growth at 2 days. Performing Locations R1: This test was performed at: [facility], [address] [place] [address], [id number] , [place], Normal [facility] Comment on above: Performed By: #### 2 [id number] ####[facility] [address] [id number] Ambulatory Visit Summaryon 0 11-26-2022 Ambulatory Visit Summary RONNY REEVES :1970 Visit Date:11/26/2022 Ambulatory Visit Instructions Your Diagnosis Gross hematuria Tests Performed Urnls Dip Stick Auto w/o Microscopy POC 68650 Your Care Team Attending Physician - LESLY ZUNIGA MD Primary Care Physician - LISA BECKHAM DO This Is Your Medications List albuterol (Ventolin HFA 90 mcg/inh Aerosol) docusate (Colace 100 mg Cap) zolpidem (zolpidem 10 mg oral tablet) Procedures Performed Colonoscopy, Vasectomy. What to do next Scheduled Follow-Up Appointments Thursday 3:45 PM EDT With: ESTELITA DAMON, Carleen Nation Where: [facility] CALCULI, URINARYon 3 2,8 Dihydroxyadenine Normal [facility] Comment on above: Performed By: #### C ALCULI #### [facility] [address] [place] [address] Dr. Kaden James Ammonium Acid Urate Normal [facility] Comment on above: Performed By: #### C ALCULI #### [facility] [address] [address] [address] Kaden James Bilirubin Ql (U) Normal [facility] Comment on above: Performed By: #### C ALCULI #### [facility] [address] [address] [address] Kaden James Ca Oxalate Dihydrate Normal [facility] Comment on above: Performed By: #### C ALCULI #### [facility] [address] [address] [address] Kaden James CaHPO4 (Brushite) [facility] Comment on above: Performed By: #### C ALCULI #### [facility] [address] [address] [address] Kaden James Calcium Bilirubinate Normal [facility] Comment on above: Performed By: #### C ALCULI #### [facility] [address] [address] [address] Kaden James Calcium Carbonate [facility] Comment on above: Performed By: #### C ALCULI #### [facility] [address] [address] [address] Kaden James Calcium Oxalate Monohydrate 100 % [facility] Comment on above: Performed By: #### C ALCULI #### [facility] [address] [address] [address] Kaden James Calcium Palmitate Normal [facility] Comment on above: Performed By: #### C ALCULI #### [facility] [address] [address] [address] Kaden James Calcium Phosphate [facility] Comment on above: Performed By: #### C ALCULI #### [facility] [address] [address] [address] Kaden James Calcium Stearate Normal [facility] Comment on above: Performed By: #### C ALCULI #### [facility] [address] [address] [address] Kaden James Carbonate Apatite [place] [facility] Comment on above: Performed By: #### C ALCULI #### [facility] [address] [address] [address] Kaden James Cellular Material [facility] Comment on above: Performed By: #### C ALCULI #### [facility] [address] [address] [address] Kaden James Cholesterol [facility] Comment on above: Performed By: #### C ALCULI #### [facility] [address] [place] [address] Dr. Kaden James Color (U) Brown Normal [facility] Comment on above: Performed By: #### C ALCULI #### [facility] [address] [place] [address] Dr. Kaden James Comment Normal [facility] Comment on above: Performed By: #### C ALCULI #### [facility] [address] [place] [address] Dr. Kaden James Comment Comment [facility] Comment on above: Result Comment: Calc ulus received wet. Wet calculi must be dried before analysis, which delays reporting of results. Leaving calculi wet (such as water, saline, blood, urine) may lead to changes in composition. Performed By: #### C ALCULI #### [facility] [address] [place] [address] Dr. Kaden James Comment: Comment Normal [facility] Comment on above: Result Comment: [facility] questions regarding Calculi Analysis contact H?REL at: [phone]. Performed By: #### C ALCULI #### [facility] [address] [place] [address] Dr. Kaden James Composition Comment [facility] Comment on above: Result Comment: Perc entage (Represents the % composition) Performed By: #### C ALCULI #### [facility] [address] [place] [address] Dr. Kaden James Cystine [facility] Comment on above: Performed By: #### C ALCULI #### [facility] [address] [place] [address] Dr. Kaden James Disclaimer: Comment [facility] Comment on above: Result Comment: This test was developed and its performance characteristics determined by [employer]. It has not been cleared or approved by the Food and Drug Administration. Performed By: #### C ALCULI #### [facility] [address] [place] [address] Dr. Kaden James Dried Blood [facility] Comment on above: Performed By: #### C ALCULI #### [facility] [address] [address] [address] Kaden James Drug or Metabolite Normal [facility] Comment on above: Performed By: #### C ALCULI #### [facility] [address] [address] [address] Kaden James Hydroxyapatite Normal [facility] Comment on above: Performed By: #### C ALCULI #### [facility] [address] [address] [address] Kaden James Mg NH4 PO4 (Struvite) [facility] Comment on above: Performed By: #### C ALCULI #### [facility] [address] [address] [address] Kaden James MgHPO4 (Newberyite) Normal [facility] Comment on above: Performed By: #### C ALCULI #### [facility] [address] [place] [address] Dr. Kaden James Other component(s) Normal [facility] Comment on above: Performed By: #### C ALCULI #### [facility] [address] [address] [address] Kaden James PDF . Normal [facility] Comment on above: Performed By: #### C ALCULI #### [facility] [address] [place] [address] Dr. Kaden James Photo Comment [facility] Comment on above: Result Comment: Phot ograph will follow under a separate cover Performed By: #### C ALCULI #### [facility] [address] [address] [address] Kaden James Please note: Comment Normal [facility] Comment on above: Result Comment: Calc renetta report will follow via computer, mail or analog design engineer delivery. Performed By: #### C ALCULI #### [facility] [address] [address] [address] Kaden James Size 1x1 Normal [facility] Comment on above: Result Comment: Mult iple pieces received. Dimensions of the largest piece reported. Performed By: #### C ALCULI #### [facility] [address] [address] [address] Kaden James Sodium Acid Urate Normal [facility] Comment on above: Performed By: #### C ALCULI #### [facility] [address] [address] [address] Kaden James Source Comment [facility] Comment on above: Result Comment: Righ t Ureter Performed By: #### C ALCULI #### [facility] [address] [address] [address] Kaden James [facility]amte[facility] Comment on above: Performed By: #### C ALCULI #### [facility] [address] [address] [address] Kaden James Uric Acid [facility] Comment on above: Performed By: #### C ALCULI #### [facility] [address] [place] [address] Dr. Kaden James Uric Acid Dihydrate [facility] Comment on above: Performed By: #### C ALCULI #### [facility] [address] [place] [address] Dr. Kaden James Weight 22 mg [facility] Comment on above: Performed By: #### C ALCULI #### [facility] [address] [address] [address] Kaden James Xanthine [facility] Comment on above: Performed By: #### C ALCULI #### [facility] [address] [place] [address] Dr. Kaden James Operative Reporton Operative Report [id number] D:127 Normal [facility] RAD - CT Reporton 11-24-2022 RAD - CT Report [id number] D:127 Normal [facility] RAD - MISCon 11-24-2022 RAD - MISC [id number] D:127 Normal [facility] Consent for Procedure/Surger yon 11-20-2022 Consent for Procedure/Surgery [id number] D:127 Normal [facility] Screenson 11-20-2022 Screens [id number] D:127 Normal [facility] Patient Educationon 11-20-19 Patient Education Urology [...] Rhubarb. ? Beets. ? Potato chips and uruguayan fries. ? Nuts. ? If you regularly take a diuretic medicine, make sure to eat at least 1?2 fruits or vegetables high in potassium each day. These include: ? Avocado. ? Banana. ? [place], prune, carrot, or tomato juice. ? Baked [...] and other foods Seasoning blends with salt. Kemar luciano (more content not included)... Normal [facility] Urology Office/Clinic Noteon 11-19-2022 Urology Office/Clinic Note Chief Complaint Follow up to [facility] HPI Staff Pt is here today for follow up to [facility] due to right flank and abdominal [...] and ureteral calculous obstruction) Follow up to [facility] ER visit on 11/16/22 due to [...] IPSS 12. Follow-up With When Contact Information Carleen ARIAS MD, URL [facility] [address], [place] [address]- Additional Instructions: x-ray, schedule tentative laser litho [...] (at bedti (more content not included)... Normal [facility] Comment on above: Result Comment: Elec tronically Signed By: Carleen ARIAS MD\.br\Date and Time Signed: 11/19/22 14:25 EST\.br\Electronically Co-Signed By: Jyoti Morales\.br\Date and Time Co-Signed: 11/19/22 14:24 EST ED Note-Physicianon 11-19-19 ED Note-Physician [id number] D:127 Normal [facility] CBC AUTO DIFFon 11-16-2022 BASO # 0.1 103/ul Normal 0.0-0.1 [facility] Comment on above: Performed By: #### C BC #### [facility] [address] [address] [address] Kaden James Basophils/100 WBC (Bld) 0.6 % Normal 0.2-2.0 [facility] Comment on above: Performed By: #### C BC #### [facility] [address] [address] [address] Kaden James EO # 0.1 103/ul Normal 0.0-0.7 [facility] Comment on above: Performed By: #### C BC #### [facility] [address] [address] [address] Kaden James Eosinophils/100 WBC (Bld) 1.4 % Normal 0.9-7.0 [facility] Comment on above: Performed By: #### C BC #### [facility] [address] [address] [address] Kaden James Erythrocyte distribution width (RBC) [Ratio] 12.2 % Normal 11.0-15.0 [facility] Comment on above: Performed By: #### C BC #### [facility] [address] [address] [address] Kaden James Hematocrit (Bld) [Volume fraction] 44.6 % Normal 42.0-54.0 [facility] Comment on above: Performed By: #### C BC #### [facility] [address] [address] [address] Kaden James Hemoglobin (Bld) [Mass/Vol] 15.5 g/dL Normal 14.0-18.0 [facility] Comment on above: Performed By: #### C BC #### [facility] [address] [address] [address] Kaden James IG # 0.03 10e3/ul Normal 0.00-0.03 [facility] Comment on above: Performed By: #### C BC #### [facility] [address] [place] [address] Dr. Kaden James IG % 0.3 % Normal 0.0-0.5 [facility] Comment on above: Performed By: #### C BC #### [facility] [address] [place] [address] Dr. Kaden James LYMPH # 2.6 103/ul Normal 1.2-3.8 [facility] Comment on above: Performed By: #### C BC #### [facility] [address] [place] [address] Dr. Kaden James Lymphocytes/100 WBC (Bld) 25.6 % Normal 20.5-60.0 [facility] Comment on above: Performed By: #### C BC #### [facility] [address] [place] [address] Dr. Kaden James MANUAL DIFF REQ NO Normal [facility] Comment on above: Performed By: #### C BC #### [facility] [address] [place] [address] Dr. Kaden James MCH (RBC) [Entitic mass] 31.9 pg Normal 25.9-34.0 [facility] Comment on above: Performed By: #### C BC #### [facility] [address] [place] [address] Dr. Kaden James MCHC (RBC) [Mass/Vol] 34.8 g/dL Normal 29.9-35.2 [facility] Comment on above: Performed By: #### C BC #### [facility] [address] [place] [address] Dr. Kaden James MCV (RBC) [Entitic vol] 91.8 fL Normal 80.0-94.0 [facility] Comment on above: Performed By: #### C BC #### [facility] [address] [place] [address] Dr. Kaden James MONO # 0.7 103/ul Normal 0.3-0.8 [facility] Comment on above: Performed By: #### C BC #### [facility] [address] [address] [address] Kaden James Monocytes/100 WBC (Bld) 6.8 % Normal 1.7-12.0 [facility] Comment on above: Performed By: #### C BC #### [facility] [address] [address] [address] Kaden James NEUT # 6.6 103/ul Critically high 1.4-6.5 [facility] Comment on above: Performed By: #### C BC #### [facility] [address] [place] [address] Dr. Kaden James Neutrophils/100 WBC (Bld) 65.3 % Normal 43.0-75.0 [facility] Comment on above: Performed By: #### C BC #### [facility] [address] [place] [address] Dr. Kaden James Platelet mean volume (Bld) [Entitic vol] 9.2 fL Critically low 9.5-13.5 [facility] Comment on above: Performed By: #### C BC #### [facility] [address] [place] [address] Dr. Kaden James PLT 393 103/ul Normal 150-450 [facility] Comment on above: Performed By: #### C BC #### [facility] [address] [place] [address] Dr. Kaden James RBC 4.86 106/ul Normal 4.70-6.10 [facility] Comment on above: Performed By: #### C BC #### [facility] [address] [place] [address] Dr. Kaden James WBC 10.1 103/ul Normal 4.0-11.0 [facility] Comment on above: Performed By: #### C BC #### [facility] [address] [place] [address] ABD/PELVIS WO CONon [...] by: HERSON MAGANA Date: 2022-11-16 09:10 Normal [facility] ER URINE PROFILEon 3 Bilirubin Ql (U) Negative Normal NEGATIVE [facility] Comment on above: Performed By: #### HAMLET ROLLE #### [facility] [address] [place] [address] Dr. Kaden James Clarity (U) CLEAR Normal CLEAR [facility] Comment on above: Performed By: #### HAMLET ROLLE #### [facility] [address] [place] [address] Dr. Kaden James Color (U) YELLOW Normal YELLOW [facility] Comment on above: Performed By: #### HAMLET ROLLE #### [facility] [address] [place] [address] Dr. Kaden CARRANZA A micrscopic examination will be performed if indicated. Normal [facility] Comment on above: Performed By: #### HAMLET ROLLE #### [facility] [address] [place] [address] Dr. Kaden James Glucose Ql (U) Negative Normal NEGATIVE [facility] Comment on above: Performed By: #### Agus HILL UMICRO #### [facility] [address] [place] [address] Dr. Kaden James Hemoglobin Ql (U) SMALL Abnormal NEGATIVE [facility] Comment on above: Performed By: #### Agus HILL UMICRO #### [facility] [address] [address] [address] Kaden James Ketones Ql (U) Negative Normal NEGATIVE [facility] Comment on above: Performed By: #### Agus HILL UMICRO #### [facility] [address] [address] [address] Kaden James LEUKOCYTES Negative Normal NEGATIVE [facility] Comment on above: Performed By: #### Agus HILL UMICRO #### [facility] [address] [place] [address] Dr. Kaden James Nitrite Ql (U) Negative Normal NEGATIVE [facility] Comment on above: Performed By: #### Agus HILL UMICRO #### [facility] [address] [place] [address] Dr. Kaden James pH (U) 7.0 [pH] Normal 5-9 [facility] Comment on above: Performed By: #### Agus HILL UMICRO #### [facility] [address] [place] [address] Dr. Kaden James SPEC GRAVITY 1.020 Normal 1.005-<=1.025 [facility] Comment on above: Performed By: #### Agus HILL UMICRO #### [facility] [address] [place] [address] Dr. Kaden James UA PROTEIN Negative Normal NEGATIVE/ TRACE [facility] Comment on above: Performed By: #### Agus HILL UMICRO #### [facility] [address] [place] [address] Dr. Kaden James UR MICRO IND INDICATED Normal [facility] Comment on above: Performed By: #### Agus HILL UMICRO #### [facility] [address] [place], [place] [id number] Dr. Kadne James Urobilinogen Qn (U) 0.2 {Deonna'U}/dL Normal 0.2 - 1. 0 [facility] Comment on above: Performed By: #### E HAMLET HILL #### [facility] [address] [address] [address] Kaden James PROF CHEM 8 (BAS METB)on Anion gap [Moles/Vol] 11.3 mmol/L Normal [facility] Comment on above: Performed By: #### B MP #### [facility] [address] [place] [address] Dr. Kaden James Calcium [Mass/Vol] 9.2 mg/dL Normal 8.5-10.1 [facility] Comment on above: Performed By: #### B MP #### [facility] [address] [place] [address] Dr. Kaden James Chloride [Moles/Vol] 109 mmol/L Critically high 98-107 [facility] Comment on above: Performed By: #### B MP #### [facility] [address] [address] [address] Kaden James CO2 [Moles/Vol] 29.6 mmol/L Normal 21.0-32.0 [facility] Comment on above: Performed By: #### B MP #### [facility] [address] [place] [address] Dr. Kaden James Creatinine [Mass/Vol] 1.48 mg/dL Critically high 0.70-1.30 [facility] Comment on above: Performed By: #### B MP #### [facility] [address] [place] [address] Dr. Kaden James EGFR-AF ROMANIAN 60 mL/min/1.73m2 Normal >=60 [facility] Comment on above: Performed By: #### B MP #### [facility] [address] [place] [address] Dr. Kaden James EGFR-NON AF ROMANIAN 50 mL/min/1.73m2 Critically low >=60 [facility] Comment on above: Performed By: #### B MP #### [facility] [address] [address] [address] Kaden James Glucose [Mass/Vol] 112 mg/dL Critically high 74-106 [facility] Comment on above: Performed By: #### B MP #### [facility] [address] [place] [address] Dr. Kaden James Potassium [Moles/Vol] 3.9 mmol/L Normal 3.5-5.1 [facility] Comment on above: Performed By: #### B MP #### [facility] [address] [place] [address] Dr. Kaden James Sodium [Moles/Vol] 146 mmol/L Critically high 136-145 [facility] Comment on above: Performed By: #### B MP #### [facility] [address] [place] [address] Dr. Kaden James Urea nitrogen [Mass/Vol] 13.0 mg/dL Normal 7.0-18.0 [facility] Comment on above: Performed By: #### B MP #### [facility] [address] [place] [address] Dr. Kaden James Urea nitrogen/Creatinine [Mass ratio] 8.8 mg/mg Normal [facility] Comment on above: Performed By: #### B MP #### [facility] [address] [place] [address] Dr. Kaden James URINE MICROSCOPIC ONLYon BACTERIA NONE SEEN Normal NONE SEEN [facility] Comment on above: Performed By: #### ELIZABETH ROLLERO #### [facility] Laboratory [address] [place] [address] Dr. Kaden James Bacteria identified Cx Nom (U) NOT INDICATED Normal [facility] Comment on above: Performed By: #### ELIZABETH ROLLERO #### [facility] [address] [place] [address] Dr. Kaden James CAST NONE SEEN Normal NONE SEEN [facility] Comment on above: Performed By: #### ELIZABETH ROLLERO #### [facility] [address] [place] [address] Dr. Kaden James Crystals LM Nom (Urine sed) NONE SEEN Normal NONE SEEN [facility] Comment on above: Performed By: #### HAMLET ROLLE #### [facility] [address] [place] [address] Dr. Kaden James Epithelial cells LM Ql (Urine sed) RARE Normal NONE SEEN /RARE [facility] Comment on above: Performed By: #### HAMLET ROLLE #### [facility] [address] [place] [address] Dr. Kaden James MUCOUS TRACE Abnormal NONE SEEN [facility] Comment on above: Performed By: #### HAMLET ROLLE #### [facility] [address] [place] [address] Dr. Kaden James RBC 2-5 Abnormal 0-2 [facility] Comment on above: Performed By: #### HAMLET ROLLE #### [facility] [address] [place] [address] Dr. Kaden James WBC 0-2 Abnormal NONE SEEN [facility] Comment on above: Performed By: #### ELIZABETH ROLLERO #### [facility] [address] [place] [address] Dr. Kaden James Vital Signs Date Time Vital Sign Value Performing Clinician Faci lity 04-09-2024 14:55-0400 Heart rate 70 /min [facility] 04-09-2024 14:55-0400 Respiratory rate 18 /min [facility] 02-03-2024 09:40-0400 Body height 165.1 cm [facility] 02-03-2024 09:40-0400 Body mass index (BMI) [Ratio] 23.6 kg/m2 [facility] 02-03-2024 09:40-0400 Body temperature 97.8 [degF] [facility] 02-03-2024 09:40-0400 Body weight 64.41 kg [facility] 02-03-2024 09:40-0400 Diastolic blood pressure 62 mm[Hg] [facility] 02-03-2024 09:40-0400 Heart rate 80 /min [facility] 02-03-2024 09:40-0400 Respiratory rate 16 /min [facility] 02-03-2024 09:40-0400 SaO2% (BldA) [Mass fraction] 97 % [facility] 02-03-2024 09:40-0400 Systolic blood pressure 114 mm[Hg] [facility] 02-01-2024 13:52-0400 Body height 165.1 cm Lakshmi Vazquez MD Work Phone: [facility] 02-01-2024 13:52-0400 Body mass index (BMI) [Ratio] 23.85 kg/m2 Lakshmi Vazquez MD Work Phone: [facility] 02-01-2024 13:52-0400 Body weight 65 kg Lakshmi Vazquez MD Work Phone: [facility] 11-19-2022 13:39-0500 Blood Pressure Location Carleen ARIAS [facility] 11-19-2022 13:39-0500 Diastolic blood pressure 97 mm[Hg] Carleen ARIAS [facility] 11-19-2022 13:39-0500 Heart rate 69 /min Carleen ARIAS [facility] 11-19-2022 13:39-0500 Systolic blood pressure 150 mm[Hg] Carleen ARIAS [facility] Encounters Encounter Date Encounter Type Care Provider Facility Start: 04-14-2024 End: 04-14-2024 ambulatory MICHAEL GARCIA Not Available Start: 04-09-2024 End: 04-09-2024 ambulatory [facility] Work Phone: Start: 04-09-2024 End: 04-09-2024 Patient encounter procedure [facility] Work Phone: Start: 04-06-2024 End: 04-06-2024 ambulatory PACO SMART Not Available Start: 04-04-2024 End: 04-04-2024 ambulatory PACO SMART Not Available Start: 03-28-2024 End: 03-28-2024 ambulatory PACO SMART Not Available Start: 03-24-2024 End: 03-24-2024 ambulatory PACO SMART Not Available Start: 03-22-2024 End: 03-23-2024 ambulatory NELA MEJÍA Not Available Start: 03-14-2024 End: 03-14-2024 ambulatory SHAIKH MCKINLEY Not Available Start: 03-08-2024 End: 03-08-2024 ambulatory PACO SMART Not Available Start: 03-01-2024 End: 03-01-2024 ambulatory JULIANNA Higuera [facility] Start: 02-10-2024 End: 02-10-2024 ambulatory SHAIKH MCKINLEY Not Available Start: 02-04-2024 End: 02-04-2024 ambulatory SHAIKH CYNTHIAD Not Available Start: 02-03-2024 End: 02-03-2024 ambulatory [facility] Work Phone: Start: 02-03-2024 End: 02-03-2024 Patient encounter procedure [facility] Work Phone: Start: 02-01-2024 End: 02-01-2024 ambulatory LAKSHMI VAZQUEZ Facility:[facility] Start: 02-01-2024 End: 02-01-2024 Office outpatient new 30 minutes Bilheather Vazquez MD Work Phone: [facility] [place] Comment on above: Lumbar disc herniati on with radiculopathy; Degeneration of lumbar intervertebral disc Start: 01-28-2024 End: 01-28-2024 ambulatory REBECCA SMITH Not Available Start: 01-26-2024 End: 01-26-2024 ambulatory REBECCA SMITH Not Available Start: 01-19-2024 End: 01-19-2024 ambulatory REBECCA SMITH Not Available Start: 01-15-2024 End: 01-15-2024 ambulatory [facility] Start: 01-14-2024 End: 01-14-2024 ambulatory PACO SMART Not Available Start: 01-13-2024 [facility]ulatory [facility] Start: 01-11-2024 End: 01-11-2024 ambulatory LAIRD FAWWAD Not Available Start: 01-07-2024 Telephone encounter Desirae cali PRODUCTION STAFF WORKER.DOLL MAKER Work Phone: 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 Comment on above: Lumbar disc herniati on with radiculopathy (Primary Dx); Degeneration of lumbar intervertebral disc; Left leg swelling Start: 01-04-2024 Telephone encounter Desirae cali PRODUCTION STAFF WORKER.DOLL MAKER Work Phone: [facility] Comment on above: [employer] - [employer]r Start: 12-30-2023 End: 12-30-2023 ambulatory LAIRD FAWWAD Not Available Start: 12-29-2023 End: 12-29-2023 ambulatory JULIANNAANGELIA [facility] Start: 12-28-2023 End: 12-28-2023 ambulatory PACO SMART Not Available Start: 12-24-2023 End: 12-24-2023 ambulatory HEDY AICHHOLZ Not Available Start: 12-24-2023 End: 12-25-2023 ambulatory PACO SMART Not Available Start: 12-14-2023 End: 12-14-2023 ambulatory LAIRD FAWWAD Not Available Start: 12-03-2023 End: 12-03-2023 ambulatory LAIRD FAWWAD Not Available Start: 11-04-2023 End: 11-04-2023 ambulatory LAIRD FAWWAD Not Available Start: 10-21-2023 Telephone encounter Florentin Dupont MA [facility] Comment on above: Med Refill (VIAGRA R EFILL) Start: 08-31-2023 End: 08-31-2023 ambulatory SHAIKH MCKINLEY Not Available Start: 04-06-2023 ambulatory Carleen ARIAS Facili ty: [place] Start: 12-09-2022 ambulatory Carleen ARIAS Facili ty: [place] Start: 12-05-2022 End: 12-06-2022 ambulatory Carleen ARIAS Facility::[id number] Start: 11-26-2022 End: 11-27-2022 ambulatory Carleen ARIAS Facility:[facility] Start: 11-26-2022 End: 11-27-2022 ambulatory LESLY ZUNIGA Facility:[facility] Start: 11-26-2022 End: 11-26-2022 Lab Drop off Carleen ARIAS [facility] Start: 11-26-2022 End: 11-26-2022 Patient encounter procedure LESLY ZUNIGA [facility] Start: 11-20-2022 End: [address] CARLEEN ARIAS . Facility: Start: 11-19-2022 End: 11-20-2022 ambulatory Carleen ARIAS Facility:[facility] Start: 11-19-2022 End: 11-19-2022 Patient encounter procedure Carleen ARIAS [facility] Start: 11-16-2022 End: 11-16-2022 ambulatory TIM WEAVER Facility: Procedures Date Procedure Procedure Detail Performing Clinician Start: 10-19-2023 Colonoscopy Florentin galan MA Colonoscopy Carleen ARIAS Vasectomy Carleen ARIAS Plan of Treatment Date Care Activity Detail Author Start: 10-19-2033 Screening for malign ant neoplasm of colon [facility] Start: 01-06-2027 Diabetes Screening Diabetes Screenin g [facility] Start: 01-20-2025 Screening for malign ant neoplasm of colon [facility] Start: 05-15-2024 Influenza vaccination Influenz a Vaccine (Season Ended) [facility] Start: 05-06-2024 End: 05-06-2024 Patient encounter procedure 05/06/2024 2:00 PM EDT Office Visit [facility] [place] [address] [place] [id number] Lakshmi Vazquez MD [address] [place] [id number] follow up 3 months [facility] [place] Comment on above: follow up 3 months Start: 03-13-2024 Influenza vaccination Influenza Vacc ine (#1) [facility] Comment on above: Postponed from 05/15 (Patient Refused) Start: 01-07-2024 End: 01-07-2024 Patient encounter procedure 01/07/2024 8:00 AM EDT Office Visit [facility] [place] [address] [place] [address] Desirae Lo APRN.DOLL MAKER [address] [place], [place] [id number] Ruptured disc pinched nerve [facility] [place] Comment on above: Ruptured disc pinche d nerve Start: 11-22-2023 Prostate specific an tigen measurement Prostate Cancer Screening Discussion [facility] Start: 09-14-2023 Behavioral Health Screening Behavioral Health Screening [facility] Start: 05-15-2023 Covid-19 Vaccine ( season) Covid-19 Vaccine ( season) [facility] Start: 2018 Shingrix Vaccine (1 of 2) Moreno grix Vaccine (1 of 2) [facility] Start: 2013 Diabetes Screening Diabetes Screenin g [facility] Start: 2013 Screening for malign ant neoplasm of colon [facility] Start: 11-22-2003 Lipid panel Lipid Screening [facility] Start: 11-22-1987 Hepatitis B Vaccine (1 of 3 - 19+ 3-dose series) Hepatitis B Vaccine (1 of 3 - 19+ 3-dose series) [facility] Start: 11-22-1987 Urine microalbumin profile DTa P,Tdap,Td Vaccine (1 - Tdap) [facility] Start: 1986 Hepatitis C screening Hepatitis C Sc jimena [facility] Start: 1986 HIV screening HIV Screening [facility] Start: 1968 Screening for malign ant neoplasm of colon [facility] Immunizations Immunization Date Immunization Notes Care Provider Laura mmcullen 06-15-2018 influenza virus vaccine, unspecified formulation Carleen ARIAS [facility] 06-15-2018 Influenza, injectabl e, Madin Queenie Canine Kidney, quadrivalent with preservative Florentin Dupont MA [facility] Payers Date Payer Category Payer Private Health Insurance [employer] [id number] 2022-Present [phone] [address] [address] [place] [address] PPO [id number] 2022 Unknown [employer] [id number] 2022-Present [address] [address] [place] [address] [id number] 2022 Unknown [id number] 1968 Unknown [id number] 2.16.840.1.574159.3.579. 2.593 1968 Unknown [id number] 2.16.840.1.357472.3.579. 2.593 1968 Unknown [id number] 2.16.840.1.403663.3.579. 2.727 1968 Unknown [id number] 2.16.840.1.769019.3.579. 2.727 1968 Unknown [id number] 2.16.840.1.353053.3.579. 2.727 1968 Unknown [id number] 2.16.840.1.215763.3.579. 2. 1968 Unknown [id number] 2.16.840.1.427925.3.579. 2. 1968 Unknown [id number] 2.16.840.1.787345.3.579. 2. 1968 Unknown [id number] 2.16.840.1.550518.3.579. 2. 1968 Unknown [id number] 2.16.840.1.640840.3.579. 2.1285 1968 Unknown [id number] 2.16.840.1.436323.3.579. 2.1285 1968 Unknown [id number] 2.16.840.1.304290.3.579. 2.1285 1968 Unknown [id number] 2.16.840.1.595932.3.579. 2.1285 1968 Unknown [id number] 2.16.840.1.777242.3.579. 2.1258 1968 Unknown [id number] 2.16.840.1.666463.3.579. 2.1258 1968 Unknown [id number] 2.16.840.1.065822.3.579. 2.1258 1968 Unknown [id number] 2.16.840.1.277487.3.579. 2.1258 1968 Unknown [id number] 2.16.840.1.145881.3.579. 2.1258 1968 Unknown [id number] 2.16.840.1.434205.3.579. 2.1258 1968 Unknown [id number] 2.16.840.1.479517.3.579. 2.1258 1968 Unknown [id number] 2.16.840.1.595071.3.579. 2.1258 1968 Unknown [id number] 2.16.840.1.397795.3.579. 2.1258 1968 Unknown [id number] 2.16.840.1.689868.3.579. 2.1258 1968 Unknown [id number] 2.16.840.1.989245.3.579. 2.1258 1968 Unknown [id number] 2.16.840.1.894565.3.579. 2.1258 1968 Unknown [id number] 2.16.840.1.953441.3.579. 2.1258 1968 Unknown [id number] 2.16.840.1.716734.3.579. 2.1258 1968 Unknown [id number] 2.16.840.1.576850.3.579. 2.1258 1968 Unknown [id number] 2.16.840.1.835551.3.579. 2.1258 1968 Unknown [id number] 2.16.840.1.206602.3.579. 2.1258 1968 Unknown [id number] 2.16.840.1.841547.3.579. 2.1258 1968 Unknown [id number] .16.840.1.223480.3.579. 2.1258 1968 Unknown [id number] 2.16.840.1.887640.3.579. 2.1258 1968 Unknown [id number] 2.16.840.1.944091.3.579. 2.1258 1968 Unknown [id number] 2.16.840.1.855054.3.579. 2.1258 1968 Unknown [id number] 2.16.840.1.474026.3.579. 2.1258 1959 Unknown [id number] Social History Date Type Detail Facility Start: 11-19-2022 End: 02-03-2024 Tobacco smoking status Never smoked tobacco (finding) [facility] Tobacco smoking status Never [facility] Start: 08-31-2023 End: 01-08-2024 Sex Assigned At Male [facility] Start: 08-31-2023 Tobacco use and exposure Smokeless tobacco non-user [facility] Start: 09-29-2023 End: 02-01-2024 Alcohol intake Current drinker of alcohol (finding) [facility] Start: 09-29-2023 End: 01-08-2024 Alcohol intake [facility] Start: 1970 Sex Assigned At Not on file [facility] Start: 1970 Sex Assigned At Male [facility] NEGATED: Highlighted rowStart: NINF History of tobacco use Passive smoker [facility] Functional Status Date Assessment Result Facility 11-19-2022 Functional Status N/A [facility] Clinical Notes 11-19-2022 to 02-01-2024 Lakshmi Vazquez MD - 02/01/2024 4:14 PM EDTTelephone Encounter - [facility] - 01/07/2024 4:32 PM EDTTelephone Encounter - [facility] - 01/07/2024 4:32 PM EDT Note Date & Type Note Facility 02-01-2024 Note HNO ID: [id number] Author: LAKSHMI VAZQUEZ MD Service: ? Author Type: Physician Type: Progress Notes Filed: 02/01/2024 16:17 Note Text: SPINE SURGERY NEW PATIENT This is an in-person visit. PCP: Shaikh Mckinley MD REFERRING PROVIDER: Desirae Lo SUBJECTIVE HISTORY OF PRESENT ILLNESS: Ronny Reeves is a 53 year old male presenting with son. CHIEF COMPLAINT: left leg radicular pain PRECIPITATING EVENT: None DURATION OF SYMPTOMS: Greater Than 6 Weeks Is a very pleasant 53-year-old male who presents with left-sided radiculopathy. Patient reports that following treatment with a chiropractor he experienced acute radicular pain. He was being followed by spine medicine and he was noted to have a left lower extremity DVT, he was recently started on Eliquis for this. He is not allowed to come off this medication for 3 to 6 months as such he has not been able to obtain an epidural steroid injection as well as not being able to undergo surgery. He reports since onset his pain has definitely improved especially with usage of gabapentin. He denies any weakness he reports some issues with sleeping but otherwise he is doing okay AMBULATORY STATUS: Impaired Community Distances ANTIPLATELET OR ANTICOAGULATION STATUS: Yes DVT or PE PREVIOUS CONSERVATIVE TREATMENTS: Nsaids PREVIOUS SPINAL SURGERY: None ACTIVE PROBLEM LIST Deep Venous Thrombosis (Hcc) Acute Deep Vein Thrombosis (Dvt) of Left Tibial Vein (Hcc) PAST MEDICAL HISTORY Diagnosis Date Asthma Depression PAST SURGICAL HISTORY Procedure Laterality Date REMOVAL OF ANAL FISSURE SPHINCTEROTOMY FAMILY HISTORY Problem Relation Age of Onset None Other Blood Clots No Family History Social History Tobacco Use Smoking status: Never Substance Use Topics Alcohol use: Yes Comment: weekends ALLERGIES No Known Allergies MEDICATIONS: gabapentin (NEURONTIN) 100 mg capsule Start with 1-3 pills at bedtime, then if tolerates well, may add 1-3 in the morning. amLODIPine (NORVASC) 10 mg tablet TAKE 1 TABLET(10 MG) BY MOUTH IN THE MORNING Zolpidem (AMBIEN CR) 12.5 mg CR tablet apixaban (ELIQUIS DVT-PE TREAT 30D START) 5 mg (74 tabs) Take 2 tablets (10 mg) by mouth twice daily for 7 days. Then take 1 tablet (5 mg) by mouth twice daily for 23 days [START ON 02/06/2024] apixaban (ELIQUIS) 5 mg tab(s) Take 1 tablet by mouth two times a day. Patient should start on February 06, 2024. fluticasone-salmeterol (ADVAIR DISKUS) 100-50 mcg/dose DsDv Inhale 1 Puff as instructed as needed. REVIEW OF SYSTEMS: All are negative except those stated in the History of Present illness. Patient Entered Questionnaires 12/31/2023 Spine Questions Pain Location: Lower back Pain Duration: More than 5 years Pain over last 6 months: At least half the days in the past 6 months Symptoms from neck/cervical spine: Yes Employment Status: Disabled due to back pain, permanently or temporarily Off work 1 month or more due to back/neck pain: Yes Applied for/receive disability/WC due to low back/neck pain Yes Involved in law suit/legal claim: No 12/31/2023 Neck Questionnaires Benzel Modified MICHAEL Score 12 (Moderate Myelopathy Symptoms) PROMIS Score Percentiles 12/31/2023 Physical Health Physical Function Percentile 1 Sleep Percentile 3 Fatigue Percentile 4 Pain Interference Percentile 1 12/31/2023 PROMIS SOCIAL ROLE SCORE Social Role Satisfaction Percentile 1 12/31/2023 PROMIS Global Health Scale Physical Health Percentile 2 Mental Health Percentile 5 Percentiles provide an indication of how the patient's score ranks in relation to the general population. Higher percentile rankings indicate better function/quality of life. 50th percentile is the average of the general population and indicates half of respondents had a worse score. Depression Screening: PHQ-9 Self-Harm (Item 9) response options: 0 Not at all 1 Several days 2 More than half the days 3 Nearly every day PHQ-9 Levels: 0-4 No to mild depression 5-9 Mild depression 10-14 Moderate depression 15-19 Moderately severe depression 20-27 Severe depression OBJECTIVE: PHYSICAL EXAM Ht 165.1 cm (5' 5 ) Wt 65 kg (143 lb 4.8 oz) BMI 23.85 kg/m? Spine Exam Drain(s): Incision: Neck No obvious deformity, normal ROM Back No stepoffs/deformities. No tenderness or instability to palpation along spinous processes or paravertebral musculature Upper Extremities UE BICEPS TRICEPS DELTS Wrist Ext Wrist Flex Otologist HI R 5 5 5 5 5 5 5 L 5 5 5 5 5 5 5 Sensation to light touch intact to bilateral upper extremities +2 radial pulse Right: Triceps, Biceps, Brachial normoreflexic Left: Triceps, Biceps, Brachial normoreflexic Morales's: - bilaterally Lower Extremities LE Hip Flex Knee Flex Knee Extend Plantarflex Dorsiflex EHL R 5 5 5 5 5 5 L 5 5 5 5 5 5 Sensation intact to light tough in bilateral lower extremities in spn, dpn, (more content not included)... [facility] 02-01-2024 History of Presen t illness Narrative Images from the original note were not included. SPINE SURGERY NEW PATIENT This is an in-person visit. PCP: Shaikh Mckinley MD REFERRING PROVIDER: Desirae Lo SUBJECTIVE HISTORY OF PRESENT ILLNESS: Ronny Reeves is a 53 year old male presenting with son. CHIEF COMPLAINT: left leg radicular pain PRECIPITATING EVENT: None DURATION OF SYMPTOMS: Greater Than 6 Weeks Is a very pleasant 53-year-old male who presents with left-sided radiculopathy. Patient reports that following treatment with a chiropractor he experienced acute radicular pain. He was being followed by spine medicine and he was noted to have a left lower extremity DVT, he was recently started on Eliquis for this. He is not allowed to come off this medication for 3 to 6 months as such he has not been able to obtain an epidural steroid injection as well as not being able to undergo surgery. He reports since onset his pain has definitely improved especially with usage of gabapentin. He denies any weakness he reports some issues with sleeping but otherwise he is doing okay AMBULATORY STATUS: Impaired Community Distances ANTIPLATELET OR ANTICOAGULATION STATUS: Yes DVT or PE PREVIOUS CONSERVATIVE TREATMENTS: Nsaids PREVIOUS SPINAL SURGERY: None ACTIVE PROBLEM LIST Deep Venous Thrombosis (Hcc) Acute Deep Vein Thrombosis (Dvt) of Left Tibial Vein (Hcc) PAST MEDICAL HISTORY Diagnosis Date Asthma Depression PAST SURGICAL HISTORY Procedure Laterality Date REMOVAL OF ANAL FISSURE SPHINCTEROTOMY FAMILY HISTORY Problem Relation Age of Onset None Other Blood Clots No Family History Social History Tobacco Use Smoking status: Never Substance Use Topics Alcohol use: Yes Comment: weekends ALLERGIES No Known Allergies MEDICATIONS: gabapentin (NEURONTIN) 100 mg capsule Start with 1-3 pills at bedtime, then if tolerates well, may add 1-3 in the morning. amLODIPine (NORVASC) 10 mg tablet TAKE 1 TABLET(10 MG) BY MOUTH IN THE MORNING Zolpidem (AMBIEN CR) 12.5 mg CR tablet apixaban (ELIQUIS DVT-PE TREAT 30D START) 5 mg (74 tabs) Take 2 tablets (10 mg) by mouth twice daily for 7 days. Then take 1 tablet (5 mg) by mouth twice daily for 23 days [START ON 02/06/2024] apixaban (ELIQUIS) 5 mg tab(s) Take 1 tablet by mouth two times a day. Patient should start on February 06, 2024. fluticasone-salmeterol (ADVAIR DISKUS) 100-50 mcg/dose DsDv Inhale 1 Puff as instructed as needed. REVIEW OF SYSTEMS: All are negative except those stated in the History of Present illness. Patient Entered Questionnaires 12/31/2023 Spine Questions Pain Location: Lower back Pain Duration: More than 5 years Pain over last 6 months: At least half the days in the past 6 months Symptoms from neck/cervical spine: Yes Employment Status: Disabled due to back pain, permanently or temporarily Off work 1 month or more due to back/neck pain: Yes Applied for/receive disability/WC due to low back/neck pain Yes Involved in law suit/legal claim: No 12/31/2023 Neck Questionnaires Benzel Modified MICHAEL Score 12 (Moderate Myelopathy Symptoms) PROMIS Score Percentiles 12/31/2023 Physical Health Physical Function Percentile 1 Sleep Percentile 3 Fatigue Percentile 4 Pain Interference Percentile 1 12/31/2023 PROMIS SOCIAL ROLE SCORE Social Role Satisfaction Percentile 1 12/31/2023 PROMIS Global Health Scale Physical Health Percentile 2 Mental Health Percentile 5 Percentiles provide an indication of how the patient's score ranks in relation to the general population. Higher percentile rankings indicate better function/quality of life. 50th percentile is the average of the general population and indicates half of respondents had a worse score. Depression Screening: PHQ-9 Self-Harm (Item 9) response options: 0 Not at all 1 Several days 2 More than half the days 3 Nearly every day PHQ-9 Levels: 0-4 No to mild depression 5-9 Mild depression 10-14 Moderate depression 15-19 Moderately severe depression 20-27 Severe depression OBJECTIVE: PHYSICAL EXAM Ht 165.1 cm (5' 5 ) Wt 65 kg (143 lb 4.8 oz) BMI 23.85 kg/m Spine Exam Drain(s): Incision: Neck No obvious deformity, normal ROM Back No stepoffs/deformities. No tenderness or instability to palpation along spinous processes or paravertebral musculature Upper Extremities UE BICEPS TRICEPS DELTS Wrist Ext Wrist Flex Otologist HI R 5 5 5 5 5 5 5 L 5 5 5 5 5 5 5 Sensation to light touch intact to bilateral upper extremities +2 radial pulse Right: Triceps, Biceps, Brachial normoreflexic Left: Triceps, Biceps, Brachial normoreflexic Morales's: - bilaterally Lower Extremities LE Hip Flex Knee Flex Knee Extend Plantarflex Dorsiflex EHL R 5 5 5 5 5 5 L 5 5 5 5 5 5 Sensation intact to light tough in bilateral lower extremities in spn, dpn, sural, saphenous, and tibial nerves. Right: Patellar, Ankle normoreflexic Left: Patellar, Ankle normoreflexic Clonus: 1 beat bilaterally Toe walk able Heel Walk able Ambulatory status: independent NEURO TESTS: DATA REVIEW [facility] records independently reviewed Lumbar MRI reviewed with a left-sided L4-5 disc herniation with partial extrusion into the L4 foramen ASSESSMENT/PLAN (M51.16) Lumbar disc herniation with radiculopathy (M51.36) Degeneration of lumbar intervertebral disc Ronny Reeves will continue with medical management of his/her condition. 1. Long discussion was had with Ronny and his son regarding his clinical presentation. We discussed I am unable to provide any neck steps while the patient is on Eliquis given his recent DVT. We did discuss exhausting nonoperative treatment prior to any surgical intervention as such once he is able I likely will send him for left-sided L4-5 epidural steroid injection and monitor for his response. He was in agreement the plan all questions were answered patient thank for the encounter. 2. Follow up: Following above Imaging Ordered: None The majority of the visit was spent counseling and/or coordinating care for the patient. The patient was counseled regarding lumbar radiculopathy. Total face to face time was 30 minutes. SIGNATURE: Lakshmi Vazquez MD PATIENT NAME: Ronny Reeves DATE: February 01, 2024 TIME: 4:14 PM PAGER: documented in this encounter [facility] 01-07-2024 Telephone encounter Note Received call from patient stating apixaban was not covered through patient's insurance. Called and spoke with pharmacist at [id number] [place] [address] - [address] [facility] [phone] [facility] [address]. [email or web address] pharmacist stated apixaban starter pack was not in stock and thus they were unable to bill insurance until medication is in stock. However, [email or web address] pharmacist was able to fill as tablets since the starter pack was not in stock. This [facility] provided $30-day free trial card over the phone, confirmed with [facility] pharmacist that this patient will have $0 copay for initial supply. This [facility] provided $10 copay card over the phone and the [facility] pharmacist entered this under patient's profile for future monthly dispenses so that may copay per month will be $10. This RP called and updated patient with $0 initial supply and $10 monthly copay after that. Patient verbalized understanding. Thank you for allowing me to participate in this patient's care. Prince Hastings RPh [facility] 01-07-2024 Miscellaneous Notes Received call from patient stating apixaban was not covered through patient's insurance. Called and spoke with pharmacist at [id number] [place] [address] - [address] [facility] [phone] [facility] [address]. [facility] pharmacist stated apixaban starter pack was not in stock and thus they were unable to bill insurance until medication is in stock. However, [facility] pharmacist was able to fill as tablets since the starter pack was not in stock. This [facility] provided $30-day free trial card over the phone, confirmed with [facility] pharmacist that this patient will have $0 copay for initial supply. This [facility] provided $10 copay card over the phone and the [facility] pharmacist entered this under patient's profile for future monthly dispenses so that may copay per month will be $10. This RP called and updated patient with $0 initial supply and $10 monthly copay after that. Patient verbalized understanding. Thank you for allowing me to participate in this patient's care. Prince Hastings RPh documented in this encounter [facility] 01-07-2024 Telephone encounter Note Returned patient's call regarding today's appointment and ED evaluation. He was verified by name and birthday, at time of call patient's Sister Hedy, was present with patient consent. At ED visit this morning he was diagnosed with left lower extremity DVT, and started on Eliquis. At discharge he was advised to follow-up with primary care and vascular medicine. He has a follow-up with primary care scheduled for 01/11/2024. He states that he will be attempting to establish with vascular medicine closer to his residence. He did verbalize that if he is unable to establish with vascular medicine close to home, he will be contacting the [facility] for follow-up. At time of call he states that once he is cleared to proceed with interventional procedures he would like to return to this provider's care and will be canceling upcoming injection with pain management, as he is not able to stop Eliquis at this time. He was advised that once he has been evaluated by vascular medicine, primary care, and is able to stop Eliquis to contact my office and we will assist with scheduling him follow-up evaluation for possible interventional procedure. All questions answered at time of call. [facility] 01-07-2024 Miscellaneous Notes Returned patient's call regarding today's appointment and ED evaluation. He was verified by name and birthday, at time of call patient's Sister Hedy, was present with patient consent. At ED visit this morning he was diagnosed with left lower extremity DVT, and started on Eliquis. At discharge he was advised to follow-up with primary care and vascular medicine. He has a follow-up with primary care scheduled for 01/11/2024. He states that he will be attempting to establish with vascular medicine closer to his residence. He did verbalize that if he is unable to establish with vascular medicine close to home, he will be contacting the [facility] for follow-up. At time of call he states that once he is cleared to proceed with interventional procedures he would like to return to this provider's care and will be canceling upcoming injection with pain management, as he is not able to stop Eliquis at this time. He was advised that once he has been evaluated by vascular medicine, primary care, and is able to stop Eliquis to contact my office and we will assist with scheduling him follow-up evaluation for possible interventional procedure. All questions answered at time of call. documented in this encounter [facility] 01-07-2024 Note HNO ID: [id number] Author: DESIRAE LIGHT RDMS, RVT Service: ? Author Type: Resource Specialist Teacher Type: Progress Notes Filed: 01/07/2024 11:30 Note Text: Radiology Service Progress Note PATIENT NAME: Ronny Reeves DATE OF SERVICE: January 07, 2024 TIME: 11:29 AM PATIENT IDENTITY VERIFICATION COMPLETED USING TWO (2) IDENTIFIERS: Name and Date of confirmed by patient verbally and Name and Date of confirmed by identification band. FALL SCREENING: Has the patient had 2 falls in the last year or 1 fall with injury or currently using an Ambulatory Assistive Device (Walker, Cane, Wheelchair, Crutches, etc.)? Emergency Room Patient: Screened in ED PATIENT GENDER DATA: Male PATIENT RELEVANT IMPLANT DATA REVIEWED: Not Applicable PATIENT PRESENTS WITH AN IMPLANTABLE OR ATTACHED SCHOOL CHILD CARE ATTENDANT: No RADIOLOGY DEPARTMENT: Ultrasound PERIPHERAL IV DATA: Not applicable Portable US DVT LOWER LT done SIGNED BY: Desirae Light RDMS, RVT January 07, 2024 11:29 AM [facility] 01-07-2024 Note HNO ID: [id number] Author: DESIRAE LO APRN.MELISA Service: ? Author Type: Nurse Practitioner Type: Progress Notes Filed: 01/07/2024 09:02 Note Text: Spine Care Path Low Back Pain - Acute (0 - 6 weeks) Initial Exam SUBJECTIVE HISTORY OF PRESENT ILLNESS: Ronny Reeves is a 53 year old male who presents with a chief complaint of low back and leg pain and is self-referred. Patient presents with left low back and leg pain x 1 month . He reports that symptoms began after chiropractic treatment. Prior to today's appointment he has been under the care of of local chiropractor, his primary care provider and recent establishment with pain management. He has also had to local ED evaluations in regards to symptoms. He is currently scheduled for a left L3, L4 TFESI with pain management on 01/15/2024. At time of today's appointment he also reports that he has been experiencing left lower extremity calf redness, pain, and swelling since Thursday morning and has not sought medical treatment for this as of today. Patient's sister, Hedy, is present with patient's consent. Hedy states that on top of current medical concerns per patient he is also having personal concerns as his mother and son are both ill, son has liver disease, and he is also going through divorce. He presents in a wheelchair but is using a walker or cane at home to assist with ambulation due to pain to the left leg. Works at [employer] ETOH - twisted tea's drinking 3 times was a week , Pain localized to Left low back Pain described as sharp, stabbing, throbbing Radiation: Left low back pain to great toe Numbness/Tingling:Left low back pain to great toe Leg worse than back He denies loss of bowel or bladder control, denies dexterity difficulties, reports imbalance due to leg pain. Pain rated 8/10 Pain worse with anything and everything Pain improved with sitting in recliner chair Interventions: medications , heat, ice , chiropractor x 8 weeks Medications: gabapentin 12/24/2023, norco 12/17/2023 , percocet , etodolac, Advair, robaxin, ambein, Past medications: Oxycodone HCL 12/07/2023 Physical Therapy: [facility] in [facility] - attended twice - discontinued by PCP due to patient's pain Treating Physicians: Dr. Milton - PCP Hedy Hughes [facility] - [facility] neurosurgery Julianna Kumari [facility]- [facility] Pain management - left L3,L4 TFESI ordered - scheduled for 01/15/2024 Dr. Collado - Pain management - [facility] Dr. Sen - [facility] Health Care History of Spine Injections/Surgery: None Other Issues Addressed at the Visit Today: None. Precipitating Event: None PAIN EVALUATION 12/31/2023 1209 01/07/2024 0752 Pain Level: 9 8 Pain Location: Back-Lower Back-Lower radiates to L leg Description: Numbness;Pressure;Pulsating;Morena oting;Stabbing/Not Incision;Tightness Sharp;Throbbing;Pressure;Burnin g Duration Amount of Time: 24 1 Duration Units: Months Months Frequency: Continuous Continuous Intervention/Comfort measure: Medication;Reposition;Relaxatio n;Cold;Heat;Massage;Pillow support;Positioning -- Comments: Controlling pain with gabapentin -- Litigation: No Workers' Compensation: No YELLOW AND BLUE FLAGS YES-Neg Attitude; Back Pain is Disabling YES-Avoiding Activity (for Fear of Pain) No-Depression or Anxiety Disorders No-Social Problems No-Substance Use Disorder No-Job Dissatisfaction No-Financial Disincentives Patient Entered Questionnaires 12/31/2023 Spine Questions Pain Location: Lower back Pain Duration: More than 5 years Pain over last 6 months: At least half the days in the past 6 months Symptoms from neck/cervical spine: Yes Employment Status: Disabled due to back pain, permanently or temporarily Off work 1 month or more due to back/neck pain: Yes Applied for/receive disability/WC due to low back/neck pain Yes Involved in law suit/legal claim: No 12/31/2023 Neck Questionnaires Benzel Modified MICHAEL Score 12 (A lower score indicates increased pain and issues.) PROMIS Score Percentiles 12/31/2023 Physical Health Physical Function Percentile 1 Sleep Percentile 3 Fatigue Percentile 4 Pain Interference Percentile 1 12/31/2023 PROMIS SOCIAL ROLE SCORE Social Role Satisfaction Percentile 1 12/31/2023 PROMIS Global Health Scale Physical Health Percentile 2 Mental Health Percentile 5 Percentiles provide an indication of how the patient's score ranks in relation to the general population. Higher percentile rankings indicate better function/quality of life. 50th percentile is the average of the general population and indicates half of respondents had a worse score. Depression Screening: PHQ-9 Self-Harm (Item 9) response options: 0 Not at all 1 Several days 2 More than half the days 3 Nearly every day PHQ-9 Levels: 0-4 No - mild depression 5-9 Mild depression 10-14 Moderate depression 15-19 Moderately severe depression 20-2 (more content not included)... [facility] 01-07-2024 History of Presen t illness Narrative Images from the original note were not included. Spine Care Path Low Back Pain - Acute (0 - 6 weeks) Initial Exam SUBJECTIVE HISTORY OF PRESENT ILLNESS: Ronny Reeves is a 53 year old male who presents with a chief complaint of low back and leg pain and is self-referred. Patient presents with left low back and leg pain x 1 month . He reports that symptoms began after chiropractic treatment. Prior to today's appointment he has been under the care of of local chiropractor, his primary care provider and recent establishment with pain management. He has also had to local ED evaluations in regards to symptoms. He is currently scheduled for a left L3, L4 TFESI with pain management on 01/15/2024. At time of today's appointment he also reports that he has been experiencing left lower extremity calf redness, pain, and swelling since Thursday morning and has not sought medical treatment for this as of today. Patient's sister, Hedy, is present with patient's consent. Hedy states that on top of current medical concerns per patient he is also having personal concerns as his mother and son are both ill, son has liver disease, and he is also going through divorce. He presents in a wheelchair but is using a walker or cane at home to assist with ambulation due to pain to the left leg. Works at [employer] ETOH - twisted tea's drinking 3 times was a week , Pain localized to Left low back Pain described as sharp, stabbing, throbbing Radiation: Left low back pain to great toe Numbness/Tingling:Left low back pain to great toe Leg worse than back He denies loss of bowel or bladder control, denies dexterity difficulties, reports imbalance due to leg pain. Pain rated 8/10 Pain worse with anything and everything Pain improved with sitting in recliner chair Interventions: medications , heat, ice , chiropractor x 8 weeks Medications: gabapentin 12/24/2023, norco 12/17/2023 , percocet , etodolac, Advair, robaxin, ambein, Past medications: Oxycodone HCL 12/07/2023 Physical Therapy: [facility] in [place] - attended twice - discontinued by PCP due to patient's pain Treating Physicians: Dr. Milton - PCP Hedy Hughes CNP - [facility] neurosurgery Julianna Kumari CNP- [facility] Pain management - left L3,L4 TFESI ordered - scheduled for 01/15/2024 Dr. Collado - Pain management - [facility] health care Dr. Sen - [facility] Care History of Spine Injections/Surgery: None Other Issues Addressed at the Visit Today: None. Precipitating Event: None PAIN EVALUATION 12/31/2023 1209 01/07/2024 0752 Pain Level: 9 8 Pain Location: Back-Lower Back-Lower radiates to L leg Description: Numbness;Pressure;Pulsating;Morena oting;Stabbing/Not Incision;Tightness Sharp;Throbbing;Pressure;Burnin g Duration Amount of Time: 24 1 Duration Units: Months Months Frequency: Continuous Continuous Intervention/Comfort measure: Medication;Reposition;Relaxatio n;Cold;Heat;Massage;Pillow support;Positioning -- Comments: Controlling pain with gabapentin -- Litigation: No Workers' Compensation: No YELLOW & BLUE FLAGS YES-Neg Attitude; Back Pain is Disabling YES-Avoiding Activity (for Fear of Pain) No-Depression or Anxiety Disorders No-Social Problems No-Substance Use Disorder No-Job Dissatisfaction No-Financial Disincentives Patient Entered Questionnaires 12/31/2023 Spine Questions Pain Location: Lower back Pain Duration: More than 5 years Pain over last 6 months: At least half the days in the past 6 months Symptoms from neck/cervical spine: Yes Employment Status: Disabled due to back pain, permanently or temporarily Off work 1 month or more due to back/neck pain: Yes Applied for/receive disability/WC due to low back/neck pain Yes Involved in law suit/legal claim: No 12/31/2023 Neck Questionnaires Benzel Modified MICHAEL Score 12 (A lower score indicates increased pain and issues.) PROMIS Score Percentiles 12/31/2023 Physical Health Physical Function Percentile 1 Sleep Percentile 3 Fatigue Percentile 4 Pain Interference Percentile 1 12/31/2023 PROMIS SOCIAL ROLE SCORE Social Role Satisfaction Percentile 1 12/31/2023 PROMIS Global Health Scale Physical Health Percentile 2 Mental Health Percentile 5 Percentiles provide an indication of how the patient's score ranks in relation to the general population. Higher percentile rankings indicate better function/quality of life. 50th percentile is the average of the general population and indicates half of respondents had a worse score. Depression Screening: PHQ-9 Self-Harm (Item 9) response options: 0 Not at all 1 Several days 2 More than half the days 3 Nearly every day PHQ-9 Levels: 0-4 No - mild depression 5-9 Mild depression 10-14 Moderate depression 15-19 Moderately severe depression 20-27 Severe depression There is no problem list on file for this patient. PAST MEDICAL HISTORY Diagnosis Date Asthma Depression PAST SURGICAL HISTORY Procedure Laterality Date REMOVAL OF ANAL FISSURE SPHINCTEROTOMY Social History Tobacco Use Smoking status: Never Substance Use Topics Alcohol use: Yes Comment: weekends FAMILY HISTORY Problem Relation Age of Onset None Unknown ALLERGIES No Known Allergies CURRENT MEDICATIONS: gabapentin (NEURONTIN) 100 mg capsule Start with 1-3 pills at bedtime, then if tolerates well, may add 1-3 in the morning. amLODIPine (NORVASC) 10 mg tablet TAKE 1 TABLET(10 MG) BY MOUTH IN THE MORNING Zolpidem (AMBIEN CR) 12.5 mg CR tablet L. RHAMNOSUS GG/INULIN (CULTURELLE PROBIOTICS ORAL) Take by mouth every 48 hours. zolpidem (AMBIEN) 10 mg Tab Take by mouth at bedtime as needed. (Patient not taking: Reported on 01/07/2024) mirtazapine 30 mg tablet Take 30 mg by mouth daily at bedtime. fluticasone-salmeterol (ADVAIR DISKUS) 100-50 mcg/dose DsDv Inhale 1 Puff as instructed as needed. Ibuprofen 100 mg chewable tablet Take 100 mg by mouth every 8 hours as needed. Polyethylene Glycol 3350 (MIRALAX) 17 gram/dose powder 1/2 capful in 8 oz of any fluid once a day. REVIEW OF SYSTEMS: PAIN ASSESSMENT: See HPI. GENERAL: Denies fever, chills malaise and weight loss. HEENT: No recent change in vision or hearing. CARDIOVASCULAR: Hypertension RESPIRATORY: Asthma GI: Denies GI ulcers, inflammatory disease, or liver disease. : Denies change in frequency or urgency, kidney disease, and burning with urination. MUSCULOSKELETAL: Positive for See HPI SKIN: Denies rash or itching. PSYCHOLOGICAL: Depression - monitored by PCP NEURO: Numbness ENDOCRINE: Denies diabetes, thyroid disease. HEMATOLOGY/LYMPHOLOGY: Denies cancer, bleeding or clotting disorders, anemia,and DVT's. ALLERGIC/IMMUNOLOGICAL: Denies risks for infection, or recent MRSA infections. OBJECTIVE: PHYSICAL EXAM There were no vitals taken for this visit. GENERAL APPEARANCE: Well appearing, well-hydrated, well nourished and alert SKIN: Head, neck, trunk, and extremities dry, intact and without lesions LUNGS: even and non-labored breathing, normal chest excursion NEURO/PSYCH: oriented to time, place, and person, speech normal, mental status intact GAIT: antalgic gait POSTURE: Posture and spinal curves are abnormal; flexed forward posture PALPATION: no palpable masses, tenderness, or spasm, no palpable subluxation or step-off, no point tenderness over the spine MUSCULOSKELETAL: Extended Low Back & Leg Exam Lumbar Range of Motion Flexion Unable to perform Extension Restricted RIGHT LEFT Lateral Bending Limited Limited Oblique Extension Decreased Decreased Leg Raise Straight Leg Raise Negative Caused low back pain Contralateral Straight Leg Raise Negative Negative DTRs Knee Normal Normal Ankle Normal Hypo-reflexive Babinski normal normal Strength of Lower Extremities Extensor Hallux Longus 5/5 -5/5 Ankle Dorsiflexion 5/5 -5/5 Ankle Plantarflexion 5/5 -5/5 Knee Extension 5/5 -5/5 Cal's Exam: Deferred Hip Range of Motion RIGHT LEFT Flexion Normal Normal Extension Normal Normal Abduction Normal Normal Adduction Normal Normal Internal Rotation Normal Normal External Rotation Normal Normal Hip Exam RIGHT LEFT HENRRY Exam Normal Leg pain Trochanteric Bursa Tenderness Normal Normal Gaenslen's Maneuver Normal Normal García's Test (IT-Band Pathology) Unable to perform Unable to perform @[id number]@ Cervical Range of Motion Flexion Normal Extension Normal Upper Body Reflex Exam RIGHT LEFT Reflex Status Reflex Status Biceps 2+ Normal 2+ Normal Brachioradialis 2+ Normal 2+ Normal Morales's Sign absent absent Upper Extremity Strength RIGHT LEFT Strength (MMT) Strength (MMT) Shoulder Abduction 5/5 5/5 Biceps 5/5 5/5 Triceps 5/5 5/5 Resisted Suppination 5/5 5/5 Wrist Extension 5/5 5/5 Interossei 5/5 5/5 NEUROSENSORY: Soft touch; Within Normal Limits Left calf 3+ edema with mild redness noted. I was able to palpate right foot pulses without difficulty. Doppler was used for evaluation of left foot pulses as I was unable to palpate them. I was able to locate left posttibial pulse with Doppler. I was unable to locate left peroneal, dorsalis pedis, and anterior tibial pulses with the Doppler. Logroll: Negative Thigh thrust: Negative Sheila's sign positive on left Neuro Tests: None Data Review: [facility] records independently reviewed Images independently reviewed with the patient Outside images were uploaded and reviewed at time of appointment. XR Lumbar 12/16/2023: 1. Suspect multilevel mild degenerative disc disease. 2. Mild degenerative facet arthropathy of lower lumbar spine. 3. No appreciable acute abnormality. XR Hip LT 12/16/2023: 1. Mild degenerative changes. 2. No acute abnormality. MRI LUMBAR - 12/23/2023 report only: Left foraminal disc herniation L4-L5 resulting in foraminal stenosis. Findings are consistent with patient's left leg radiculopathy PARASPINAL AREA: Normal with no visible mass. BONES: Normal alignment with no acute fracture or spondylolisthesis. No bone edema. Mild anterior wedging of the T11 and T12 vertebral bodies, physiologic versus remote. Moderate degenerative spondylosis CORD/CAUDA EQUINA: Normal caliber, contour, and signal intensity. DISC LEVELS: 12-L1: No significant disc/facet abnormality, spinal stenosis, or foraminal stenosis. L1-L2: No significant disc/facet abnormality, spinal stenosis, or foraminal stenosis. L2-L3: Disc desiccation. Mild posterior disc/osteophyte complex. No central or foraminal stenosis L3-L4: Disc space narrowing and disc desiccation. Posterior broad-based disc protrusion extending posteriorly up to 2.7 mm. Facet osteoarthropathy and ligamentum flavum hypertrophy. No central canal stenosis. Mild bilateral foraminal stenosis L4-L5: Disc space narrowing and disc desiccation. Posterior broad-based disc protrusion. Focal left foraminal disc herniation of the extrusion type measuring 1.2 cm at the base extending posteriorly up to 4.6 mm, axial image 6 and 7, sagittal image 7. No central canal or right foraminal stenosis. Moderate to severe left foraminal stenosis. L5-S1: Disc desiccation. Broad-based posterior disc protrusion. No central or foraminal stenosis ASSESSMENT/PLAN Lumbar disc herniation with radiculopathy (primary encounter diagnosis) Degeneration of lumbar intervertebral disc Left leg swelling Ronny Reeves is a 53 year old male with acute left low back and leg pain. Symptoms have been present x 1 month. He reports that symptoms began after chiropractic treatment. He also reports left calf pain, redness, and edema since Thursday morning, 01/05/2024. Left calf 3+ edema with mild redness noted. I was able to palpate right foot pulses without difficulty. Doppler was used for evaluation of left foot pulses as I was unable to palpate. I was able to locate left posttibial pulse with Doppler. I was unable to locate left peroneal, dorsalis pedis, and anterior tibial pulses with the Doppler. Sheila's sign positive on left MRI LUMBAR - 12/23/2023 report only: Left foraminal disc herniation L4-L5 resulting in foraminal stenosis. Findings are consistent with patient's left leg radiculopathy At time of appointment imaging was uploaded and reviewed with patient. He he is currently scheduled to undergo interventional procedure with pain management 01/15/2024. I reviewed this procedure and his current occasions. Upon completion of review patient request surgical consultation, consultation order was placed. Patient was advised to have ED evaluation in regards to left lower extremity examination findings, see above, as there is concern for possible DVT. He was agreeable. Prior to patient discharge I contacted [facility] at 08:35 a.m. Report was given to ED charge nurse Jackson. Patient request to have his sister drive him to the emergency department. He is alert and oriented x 3 and without signs and symptoms of distress. 1. Imaging: Hold 2. Physical Therapy: Hold 3. Medication: No changes 4. Referrals: Spine surgery 5. Considerations: CPRP, Left L5-S1 TFESI 6. Follow up: PRN Imaging Ordered: None SIGNATURE: Desirae Lo APRN.CNP PATIENT NAME: Ronny Reeves DATE: January 07, 2024 TIME: 7:49 AM documented in this encounter [facility] 01-04-2024 Telephone encounter Note Attempted to contact patient in regards to upcoming appointment on 01/07/2024. No imaging is available in patient's chart, attempted to leave voicemail requesting patient to bring imaging to his appointment, this attempt was unsuccessful, as patient's voicemail box is full. [facility] 01-04-2024 Miscellaneous Notes Attempted to contact patient in regards to upcoming appointment on 01/07/2024. No imaging is available in patient's chart, attempted to leave voicemail requesting patient to bring imaging to his appointment, this attempt was unsuccessful, as patient's voicemail box is full. documented in this encounter [facility] 10-21-2023 Telephone encounter Note Prescription called in for the patient. [facility] 10-21-2023 Miscellaneous Notes Prescription called in for the patient. documented in this encounter [facility] 11-20-2022 Note OP Note OPERATION DATE: 11/20/2022 PREOPERATIVE DIAGNOSIS: Retained right ureteral calculus. POSTOPERATIVE DIAGNOSIS: Retained right ureteral calculus, plus right ureteral stricture. PROCEDURE: 1. Cystoscopy. 2. Right rigid ureteral dilation. 3. Right ureteroscopy. 4. Holmium laser lithotripsy of very dense ureteral calculus 5. Stone basket extraction of ureteral calculus. 6. Placement of 6-[place] Citizen variable length right ureteral stent. ANESTHESIA: General by LMA. COMPLICATIONS: None. INDICATIONS: Ronny Gilmore is a 51-year-old gentleman who has [...] usual fashion. I started by passing a 22-[place] Citizen Olympus cystoscope per urethra and into the [...] kidney. I then used an 8 and 10-[place] Citizen rigid dilator to dilate the distal ureter. [...] into the bladder. I then slid a 6-[place] Citizen variable length [employer] director long term care ureteral stent over the wire, up into the kidney. The wire was removed and there were good curls in the kidney and in the bladder. The bladder was drained of its contents and the scope was then removed. He was then transferred [facility] and wheeled to PACU in stable condition. [facility] 11-19-2022 Hospital Discharg e instructions Patient Education [...] include: ?Spinach. ?Rhubarb. ?Beets. ?Potato chips and uruguayan fries. ?Nuts. If you regularly take a diuretic medicine, make sure to eat at least 1 2 fruits or vegetables high in potassium each day. These include: ?Avocado. ?Banana. ?[place], prune, carrot, or tomato juice. ?Baked potato. [...] Casseroles. Pizza. Lasagna. Frozen meals. Potato chips. [place] fries. Summary You can reduce your risk [...] 12/26/2011 Document Revised: 12/21/2019 Document Reviewed: 08/11/2017 [employer] Patient Education 2020 [employer]. Follow Up Care 11/18/2022 14:59:23 With:Carleen ARIAS MD, URL Address: [facility] [address] , [place] [address]- When: Unknown [facility] Evaluation + Plan note No data available for this section [facility] Evaluation + Plan note Future Appointments Appointment Date:12/09/2022 03:45:00 PM Scheduled Provider:Carleen ARIAS MD Location:[facility] Appointment Type:URO Procedure 15 min [facility] Evaluation + Plan note Future Appointments Appointment Date:12/09/2022 03:45:00 PM Scheduled Provider:Carleen ARIAS MD Location:[facility] Appointment Type:URO Procedure 15 min Diagnostic Tests PendingUrine Culture 11/26/22 [facility] Evaluation note Diagnosis Erectile dysfunction, unspecified erectile dysfunction type- Primary documented in this encounter [facility]* Diagnosis Lumbar disc herniation with radiculopathy- Primary Displacement of lumbar intervertebral disc without myelopathy Degeneration of lumbar intervertebral disc Degeneration of lumbar or lumbosacral intervertebral disc Left leg swelling Swelling of limb [facility] Lumbar disc herniation with radiculopathy Displacement of lumbar intervertebral disc without myelopathy Degeneration of lumbar intervertebral disc Degeneration of lumbar or lumbosacral intervertebral disc documented [facility]* Diagnosis Onset Date Resolution Status Deep venous thrombosis of left popliteal vein acute [facility] Work Phone: Hospital Discharge instructions No data available for this section [facility] Progress note No data available for this section [facility] Summary Purpose Family History No Family History Records FoundNo Family History Records FoundNo Family History Records FoundNo Family History Records FoundNo Family History Records FoundNo Family History Records FoundNo Family History Records FoundNo Family History Records Found Advance Directives No Advanced Directives Records Found Advance Directive Response Recorded Date/ Time Advance Directives No January 19, 2024 11:14am Reason for Referral Specialty Diagnoses / Procedures Referred By Contac t Referred To Contact Diagnoses Lumbar disc herniation with radiculopathy Degeneration of lumbar intervertebral disc Procedures CONSULT TO SPINE SURGERY OFFICE/OUTPATIENT [facility] 60 MINUTES Desirae Lo, PRODUCTION STAFF WORKER.DOLL MAKER [address] [id number] Referral ID Status Reason Start Date Expiration Date Visits Requested Visits Authorized [id number] Authorized PCP Requested Referral 01/07/2024 01/06/2025 1 1 Chief Complaint and Reason for Visit Chief Complaint REF FOR ACUTE DVT OF LEFT POPLITEAL VEIN Chief Complaint REF FOR ACUTE DVT OF LEFT POPLITEAL VEIN Poison carolyn Reason for Visit Deep venous thrombos is of left popliteal vein Additional Source Comments Patient Care team informatio n (unrecognized section and content) Chimney Supervisor Brick Relationship Specialty Start Date End Date Shaikh Sen MD PCP - General Internal Medicine 09/14/22 Chimney Supervisor Brick Relationship Specialty Start Date End Date Robert Milton MD PCP - General Family Medicine 11/02/12 Chimney Supervisor Brick Relationship Specialty Start Date End Date Shaikh Sen MD [address] [place] [address] PCP - General Primary Care 01/07/24 Chimney Supervisor Brick Relationship Specialty Start Date End Date Shaikh Sen MD [address] [place] [address] PCP - General Primary Care 01/07/24 Chimney Supervisor Brick Relationship Specialty Start Date End Date Shaikh Sen MD [address] [place] [address] PCP - General Primary Care 01/07/24 Team Status: Active Member Role Status Dates Shaikh Mckinley MD Primary Care Provider Active Team Status: Inactive Member Role Status Dates Shaikh Mckinley MD Primary Care Provider Active Start: February 03, 2024 End: February 03, 2024 Saeid Torres MD Attending Provider Active Start: February 03, 2024 End: February 03, 2024 Team Status: Inactive Member Role Status Dates Shaikh Mckinley MD Primary Care Provider Active Start: April 09, 2024 End: April 09, 2024 Amita Rivers APRN Attending Provider Active Start: April 09, 2024 End: April 09, 2024 (unrecognized sect ion and content) No Status Records FoundNo Status Records FoundNo Status Records FoundNo Status Records FoundNo Status Records FoundNo Status Records FoundNo Status Records FoundNo Status Records Found INFORMATION SOURCE (unrecogn ized section and content) DATE CREATED AUTHOR 11/26/2022 [facility] DATE CREATED AUTHOR AUTHOR'S ORGANIZ ATION 12/25/2022 [facility] DATE CREATED AUTHOR AUTHOR'S ORGANIZ ATION 01/08/2024 [facility] DATE CREATED AUTHOR AUTHOR'S ORGANIZ ATION 01/08/2024 [facility] DATE CREATED AUTHOR AUTHOR'S ORGANIZ ATION 01/15/2024 [facility] DATE CREATED AUTHOR AUTHOR'S ORGANIZ ATION 02/03/2024 [facility] DATE CREATED AUTHOR AUTHOR'S ORGANIZ ATION 03/03/2024 [facility] DATE CREATED AUTHOR AUTHOR'S ORGANIZ ATION 04/19/2024 [facility] Special[facility] EPIC Reason for Visit (unrecogniz ed section and content) Reason Onset Date Comments Med Refill 10/21/2023 VIAGRA REFILL 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 - Other Reason Comments New Patient Low Back pain Reason Comments Medication Problem Reason Comments New Patient Lumbar disc herniati on w/ radiculopathy, degeneration of lumbar intervertebral disc Specialty Diagnoses / Procedures Referred By Contac t Referred To Contact Diagnoses Lumbar disc herniation with radiculopathy Degeneration of lumbar intervertebral disc Procedures CONSULT TO SPINE SURGERY OFFICE/OUTPATIENT [facility] 60 MINUTES Desirae Lo, BRYSON.DOLL MAKER [address] [place] [address] Referral ID Status Reason Start Date Expiration Date V isits Requested Visits Authorized [id number] Closed PCP Requested Referral 01/07/2024 01/06/2025 1 1 Source Comments (unrecognize d section and content) In the event this informatio n is protected by the Federal Confidentiality of Alcohol and Drug Abuse Patient Records regulations: The Federal rules restrict any use of the information to criminally investigate or prosecute any alcohol or drug abuse patient.[facility] the event this information is protected by the Federal Confidentiality of Alcohol and Drug Abuse Patient Records regulations: The Federal rules restrict any use of the information to criminally investigate or prosecute any alcohol or drug abuse patient.[facility] Hospital[facility] the event this information is protected by the Federal Confidentiality of Alcohol and Drug Abuse Patient Records regulations: The Federal rules restrict any use of the information to criminally investigate or prosecute any alcohol or drug abuse patient.[facility] Hospital[facility] the event this information is protected by the Federal Confidentiality of Alcohol and Drug Abuse Patient Records regulations: The Federal rules restrict any use of the information to criminally investigate or prosecute any alcohol or drug abuse patient.[facility] Hospital[facility] the event this information is protected by the Federal Confidentiality of Alcohol and Drug Abuse Patient Records regulations: The Federal rules restrict any use of the information to criminally investigate or prosecute any alcohol or drug abuse patient.[facility] Goals (unrecognized section and content) Goals may be documented in a n alternate section FOR RECORDS PERTAINING TO PATIENTS WHO ARE [...] BE BASED ON THE PRIMARY CLINICAL RECORDS. [facility]. provides no warranty or guarantee of the accuracy or completeness of information in this document.
[2024-05-31 12:46] LABS: Basophils Percent Auto 0.6 % (0.2-2.0); Eosinophils Absolute Auto 0.1 10^3/uL (0.0-0.7); Eosinophils Percent Auto 0.9 % (0.9-7.0); Hematocrit 44.4 % (42.0-54.0); Hemoglobin 15.4 g/dL (14.0-18.0); Immature Granulocytes Abs Auto 0.01 10^3/uL (0.00-0.03); Immature Granulocytes Pct Auto 0.1 % (0.0-0.5); Lymphocytes Absolute Auto 3.1 10^3/uL (1.2-3.8); Mean Corpuscular HGB Conc 34.7 g/dL (29.9-35.2); Mean Corpuscular Hemoglobin 32.2 pg (25.9-34.0); Mean Corpuscular Volume 92.7 fL (80.0-94.0); Mean Platelet Volume 9.8 fL (9.5-13.5); Monocytes Absolute Auto 0.5 10^3/uL (0.3-0.8); Monocytes Percent Auto 7.2 % (1.7-12.0); Neutrophils Absolute Auto 3.3 10^3/uL (1.4-6.5); Neutrophils Percent Auto 47.2 % (43.0-75.0); Platelet Count 343 10^3/uL (150-450); Red Blood Count 4.79 10^6/uL (4.70-6.10); Red Cell Distribution Width 12.3 % (11.0-15.0)
[2024-05-31 13:16] LABS: Alanine Aminotransferase 27 U/L (16-63); Albumin Globulin Ratio 1.4; Albumin Level 3.9 g/dL (3.4-5.0); Alkaline Phosphatase 66 U/L (46-116); Anion Gap 8.6; Aspartate Amino Transferase 26 U/L (15-37); BUN Creatinine Ratio 17.9; Bilirubin Total 0.9 mg/dL (0.2-1.0); Calcium 9.2 mg/dL (8.5-10.1); Carbon Dioxide 31.1 mmol/L (21.0-32.0); Chloride 105 mmol/L (98-107); Estimated GFR (African America >60 (>=60); Estimated GFR (Non-African Ame >60 (>=60); Globulin 2.8 g/dL; Glucose 94 mg/dL (74-106); Potassium 3.7 mmol/L (3.5-5.1); Sodium 141 mmol/L (136-145); Total Protein 6.7 g/dL (6.4-8.2)
== END 2024-05-31 12:09 | disposition home or self-care (01) ==
LOC: LAB 12:10
PROVIDERS: PCP Internal Medicine
DX: R19.5 Other fecal abnormalities (principal); I10 Essential (primary) hypertension; Z80.0 Family history of malignant neoplasm of digestive organs
CPT/HCPCS: 36415; 80053; 85025

== ENCOUNTER 2024-09-20 15:52 | Outpatient (OUT) | payer OTHER, SELFPAY ==
[2024-09-20 16:09] LABS: Basophils Absolute Auto 0.1 10^3/uL (0.0-0.1); Basophils Percent Auto 1.1 % (0.2-2.0); Eosinophils Absolute Auto 0.2 10^3/uL (0.0-0.7); Hematocrit 45.9 % (42.0-54.0); Hemoglobin 15.9 g/dL (14.0-18.0); Immature Granulocytes Abs Auto 0.01 10^3/uL (0.00-0.03); Immature Granulocytes Pct Auto 0.1 % (0.0-0.5); Lymphocytes Absolute Auto 3.5 10^3/uL (1.2-3.8); Lymphocytes Percent Auto 47.4 % (20.5-60.0); Mean Corpuscular HGB Conc 34.6 g/dL (29.9-35.2); Mean Corpuscular Hemoglobin 33.2 pg (25.9-34.0); Mean Corpuscular Volume 95.8 fL (80.0-94.0); Mean Platelet Volume 9.2 fL (9.5-13.5); Monocytes Absolute Auto 0.5 10^3/uL (0.3-0.8); Monocytes Percent Auto 7.3 % (1.7-12.0); Neutrophils Absolute Auto 3.1 10^3/uL (1.4-6.5); Neutrophils Percent Auto 42.1 % (43.0-75.0); Platelet Count 369 10^3/uL (150-450); Red Blood Count 4.79 10^6/uL (4.70-6.10); Red Cell Distribution Width 11.9 % (11.0-15.0); White Blood Count 7.4 10^3/uL (4.0-11.0)
[2024-09-20 16:42] LABS: Percent Iron Saturation 28.6 %
[2024-09-20 17:57] LABS: Internal Control Within Normal Limits; Occult Blood Negative
[2024-09-22 07:11] LABS: Transferrin 300 mg/dL (177-329); Vitamin B12 691 pg/mL (232-1245)
== END 2024-09-20 15:53 | disposition home or self-care (01) ==
LOC: LAB 15:53
DX: R19.5 Other fecal abnormalities (principal)
CPT/HCPCS: 36415; 82607; 82728; 83540; 83550; 84466; 85025; G0328

== ENCOUNTER 2025-01-05 11:40 | Outpatient (OUT) | payer OTHER, SELFPAY ==
[2025-01-05 12:52] LABS: Alanine Aminotransferase 30 U/L (16-63); Albumin Globulin Ratio 1.5; Alkaline Phosphatase 77 U/L (46-116); Anion Gap 14.2; Aspartate Amino Transferase 17 U/L (15-37); BUN Creatinine Ratio 17.4; Calcium 9.1 mg/dL (8.5-10.1); Carbon Dioxide 27.5 mmol/L (21.0-32.0); Chloride 106 mmol/L (98-107); Chol HDL Ratio 2.3; Cholesterol 155 mg/dL (<=200); Estimated GFR (African America >60 (>=60 mL/min/1.73m^2); Estimated GFR (Non-African Ame >60 (>=60 mL/min/1.73m^2); Globulin 2.6 g/dL; Glucose 85 mg/dL (74-106); HDL Cholesterol 68 mg/dL (40-60); Potassium 3.7 mmol/L (3.5-5.1); Sodium 144 mmol/L (136-145); Total Protein 6.6 g/dL (6.4-8.2); Triglycerides 35 mg/dL (<=150)
[2025-01-05 13:05] LABS: Prostate Specific Antigen Scrn 2.33 ng/mL (<=4.00)
== END 2025-01-05 11:41 | disposition home or self-care (01) ==
LOC: LAB 11:41
PROVIDERS: PCP Nurse Practitioner Family; Visit Provider Nurse Practitioner Family
DX: Z12.5 Encounter for screening for malignant neoplasm of prostate (principal); I10 Essential (primary) hypertension
CPT/HCPCS: 36415; 80053; 80061; G0103

== ENCOUNTER 2025-02-10 08:00 | Outpatient (OUT) | payer OTHER, SELFPAY ==
--- OUTSIDE RECORDS SUMMARY | 2025-02-10 08:03 | XMS_ITS | Patient Health Record ---
Author Organization [facility] [place] Address [address] [place] [address] Care Team Providers Care Sales Operations Name Role Phone Mckinley DAMON, Laird Primary Care Provider Unavaila ble Allergies No Known Allergies Reason For Referral No Information Medications Medication SIG (Take, Route, Frequency, Duration) Notes Start Date End Date Status Breo Ellipta 100-25 MCG/ACT 1 puff Inhalation Once a day Active Albuterol Sulfate HFA 108 (90 Base) MCG/ACT 1 puff as needed Inhalation every 4 hrs Active amLODIPine Besylate 10 MG 1 tablet Orally Once a day Active Viagra 100 MG 1 tablet as needed Orally Once a day Not-Taking Zolpidem Tartrate 10 MG 1 tablet at bedt izabel as needed Orally Once a day Active Melatonin 1 MG/4ML 4 mL at bedtime as needed Orally Once a day Active tiZANidine HCl 4 MG 1 tablet as needed Orally Three times a day Active Social History Tobacco Use: Social History Observation Description Date Details (start date - stop date) Never Smoker NA - NA Tobacco Use/Smoking Question Answer Notes Patient is a nonsmoker Plan Of Treatment No Information Insurance Providers Payer Name Payer Address Payer Phone Subscriber Number Group Number Insured Name Patient Relationship to Insured Coverage Start Date Coverage End Date [employer] [address] [address] [place] [address] [id number] HeidyGuzman glasgow Self - patient is the insured 3 Medical (General) History Medical History History ICD Code Elevated blood-pressure reading, without diagnosis of hypertension R03.0 Erectile dysfunction 607.84 Low back pain M54.5 Cervicalgia M54.2 Contact dermatitis due to poison carolyn 692 .6 Constipation K59.00 Mixed irritable bowel syndrome K58.2 Moderate persistent asthma 493.90 Mild intermittent allergic asthma withou t complication J45.20 Hypertension 401.9 Otitis media 382.9 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
--- OUTSIDE RECORDS SUMMARY | 2025-02-10 08:03 | XMS_ITS | Encounter Summary ---
Author Organization [facility] tem [id number] [address] [place] [address] Care Team Providers Care Crystallography Teacher Name Role Phone Shaikh NELSON Sen Primary Care Provider [phone] Encounter Details Date Type Department Care Team (Late st Contact Info) Description 12/01/2022 Orders Only [facility] - Family Medicine [address] [place] [id number] External, Scanning Provider Social History Tobacco Use Types Packs/Day Years Used Date Smoking Tobacco: Never Assessed Childcare Answer Date Recorded Childcare Unknown 02/23/2019 Employment Answer Date Recorded Employment Unknown 02/23/2019 Sex and Gender Information Value Date Recorded Sex Assigned at Not on file Legal Sex Male 11:41 AM EDT Gender Identity Not on file Sexual Orientation Not on file documented as of this encounter Plan of Treatment Not on file documented as of this encounter Procedures Procedure Name Priority Date/Time Associated Diagnosis Comments URINE CULTURE Routine 12/01/2022 documented in this encounter Results * Urine Culture (12/01/2022) Urine us Scanning Provider External MICROBIOLOGY - GENERA L ORDERABLES Final Result MANUALLY TRANSCRIBED RESULTS documented in this encounter Visit Diagnoses Not on filedocumented in this encounter Care Teams Crystallography Teacher Relationship Specialty Start Date End Date Shaikh Sen MD PCP - General Internal Medicine 06/30/23 documented as of this encounter
--- OUTSIDE RECORDS SUMMARY | 2025-02-10 08:03 | XMS_ITS | Encounter Summary ---
Author Organization [facility] Address [address] [place] [address] Care Team Providers Care Fuel Technician Name Role Phone Shaikh NELSON Sen Primary Care Provider [phone] Carlos Sarabia MD Primary Care Provider [phone] Lakia Carcamo INKER MACHINE Unavailable [phone] Sonal Fofana DO Unavailable [phone] Encounter Details Date Type Department Care Team (Late st Contact Info) Description 12/28/2023 Orders Only [facility] [address] [place] [phone] Shaikh Sen MD [address] [place] [address] Social History Tobacco Use Types Packs/Day Years Used Date Smoking Tobacco: Never Passive Smoke Exposure: Never Smokeless Tobacco: Never Alcohol Use Standard Drinks/Week Comments Yes 6 (1 standard drink = 0.6 oz pur e alcohol) Social Connection and Isolation Panel [NHANES] A nswer Date Recorded In a typical week, how many times do you talk on the phone with family, friends, or neighbors? Twice a week 12/24/2023 How often do you get togethe r with friends or relatives? Twice a week 12/24/2023 Attends Rastafarian Services Not on file 12/23 Do you belong to any clubs o r organizations such as episcopal groups, unions, fraternal or athletic groups, or school groups? Patient declined 12/24/2023 How often do you attend meet ings of the clubs or organizations you belong to? Patient declined 12/24/2023 Are you , , di vorced, , never , or living with a partner? 12/24/2023 AUDIT-C Answer Date Recorded Q1: How often do you have a drink containing alc ohol? 2-4 times a month 12/24/2023 Q2: How many drinks containi ng alcohol do you have on a typical day when you are drinking? 3 or 4 12/24/2023 Q3: How often do you have si x or more drinks on one occasion? Monthly 12/24/2023 Overall Financial Resource Strain (CARDIA) Answe r Date Recorded How hard is it for you to pa y for the very basics like food, housing, medical care, and heating? Very hard 12/24/2023 PHQ-2 Answer Date Recorded Patient Health Questionnaire-2 Score 0 12/03/2023 [facility] - Occupational Stress Questionnaire Answer Date Recorded Do you feel stress - tense, restless, nervous, or anxious, or unable to sleep at night because your mind is troubled all the time - these days? Very much 12/24/2023 Exercise Vital Sign Answer Date Recorde d On average, how many days pe r week do you engage in moderate to strenuous exercise (like a brisk walk)? 0 days 12/24/2023 On average, how many minutes do you engage in exercise at this level? 0 min 12/24/2023 Hunger Vital Sign Answer Date Recorded Within the past 12 months, y ou worried that your food would run out before you got the money to buy more. Sometimes true Within the past 12 months, t he food you bought just didn't last and you didn't have money to get more. Patient declined 07/2024 PRAPARE - Transportation Answer Date Re corded In the past 12 months, has l ack of transportation kept you from medical appointments or from getting medications? Patient declined 12/24/2023 In the past 12 months, has l ack of transportation kept you from meetings, work, or from getting things needed for daily living? Patient declined 12/24/2023 Housing Stability Vital Sign Answer Cipriano e Recorded In the last 12 months, was t here a time when you were not able to pay the mortgage or rent on time? Yes 12/24/2023 In the last 12 months, how many places have you lived? 1 12/24/2023 In the last 12 months, was t here a time when you did not have a steady place to sleep or slept in a snf (including now)? No 12/24/2023 Sex and Gender Information Value Date Recorded Sex Assigned at Not on file Legal Sex Male 6:38 PM EDT Gender Identity Not on file Sexual Orientation Not on file documented as of this encounter Plan of Treatment Not on file documented as of this encounter Visit Diagnoses Not on filedocumented in this encounter Additional Health Concerns Assessment Noted Time PHQ-9 Depression Total Score: 12 024 2:53 PM EST documented as of this encounter Care Teams Fuel Technician Relationship Specialty Start Date End Date Shaikh Sen MD [address] [place] [address] PCP - General Internal Medicine 10/26/23 04/17/24 Carlos Sarabia MD [address] [place] [address] PCP - General Family Medicine 04/18/24 Lakia Carcamo NP [address] [place] [phone] Nurse Practitioner Family Medicine 04/18/24 Sonal Fofana DO [address] [place] [address] Referring Physician Neurology 11/15/24 documented as of this encounter
--- OUTSIDE RECORDS SUMMARY | 2025-02-10 08:03 | XMS_ITS | Encounter Summary ---
Author Organization [facility] Address [address] [place] [address] Care Team Providers Care Application Integration Architect Name Role Phone Carlos Sarabia MD Primary Care Provider [phone] Lakia Carcamo CREDIT CONTROL OFFICER Unavailable [phone] Sonal Fofana DO Unavailable [phone] Encounter Details Date Type Department Care Team (Late st Contact Info) Description 12/14/2024 Abstract [facility] [address] [place] [address] Hedy Hughes NP [address] [place] [phone] Social History Tobacco Use Types Packs/Day Years [...] or relatives? Twice a week 12/24/2023 Attends Pentecostalism Services Not on file 12/23 Do you belong to any clubs o r organizations such as zoroastrian groups, unions, fraternal or athletic groups, or [...] Answer Date Recorded Patient Health Questionnaire-2 Score 4 05/12/2024 [facility] - Occupational Stress Questionnaire Answer Date Recorded [...] place to sleep or slept in a long-term (including now)? No 12/24/2023 Sex and Gender [...] Assessment Noted Time PHQ-9 Depression Total Score: 17 024 3:17 PM EDT documented as of this encounter Care Teams Application Integration Architect Relationship Specialty Start Date End Date Carlos Sarabia MD [address] [place] [address] PCP - General Family Medicine 04/18/24 Lakia Carcamo NP [address] [place] [address] Nurse Practitioner Family Medicine 04/18/24 Sonal Fofana DO [address] [place] [address] Referring Physician Neurology 11/15/24 documented as of this encounter
--- OUTSIDE RECORDS SUMMARY | 2025-02-10 08:03 | XMS_ITS | Encounter Summary ---
Author Organization [facility] Address [address] [place] [address] Care Team Providers Care Coil Shaper Name Role Phone Shaikh NELSON Sen Primary Care Provider [phone] Carlos Sarabia MD Primary Care Provider [phone] Lakia Carcamo WELLNESS EDUCATOR Unavailable [phone] Sonal Fofana DO Unavailable [phone] Encounter Details Date Type Department Care Team (Late st Contact Info) Description 12/23/2023 Clinisync Result Encounter [facility] External Department Unsolicited Hedy Hughes NP [address] [place] [address] Social History Tobacco Use Types Packs/Day Years [...] or relatives? Twice a week 12/24/2023 Attends Anab[employer]ist Services Not on file 12/23 Do you belong to any clubs o r organizations such as jainism groups, unions, fraternal or athletic groups, or [...] Recorded Patient Health Questionnaire-2 Score 0 12/03/2023 [facility] - Occupational Stress Questionnaire Answer Date [...] on file documented as of this encounter Functional Status * Audit-C Score Answer Date of Assessment Author 5 12/24/2023 9:31 AM EDT Mychart, Generic * Q1: How often do you have a drink containing alcohol? Answer Date of Assessment Author 2-4 times a month 12/24/2023 9:31 AM EDT Mychart , Generic * Q2: How many drinks containing alcohol do you have on a typical day when you are drinking? Answer Date of Assessment Author 3 or 4 12/24/2023 9:31 AM EDT Mychart, Generic * Q3: How often do you have six or more drinks on one occasion? Answer Date of Assessment Author Monthly 12/24/2023 9:31 AM EDT Mychart, Generic documented as of this encounter Plan of Treatment Not on file documented as of this encounter Procedures Procedure Name Priority Date/Time Associated Diagnosis Comments MR LUMBAR SPINE WO CON 12/23/2023 9:03 AM EDT documented in this encounter Results * MR LUMBAR SPINE WO CON (12/23/2023 9:03 AM EDT) Anatomical Region Laterality Modality Other 12/23/2023 9:03 AM EDT Narrative 12/23/2023 9:05 [place] [address] Magnetic Resonance Report Signed Patient: RONNY REEVES MR#: [id number] : 1970 Acct:[id number] Age/Sex: 53 / M ADM Date: 12/23/23 Loc: MRI Attending Dr: Hedy Hughes NP Ordering Physician: Hedy Hughes NP Date of Service: 12/23/23 Procedure(s): MR lumbar spine wo con Accession Number(s): [id number] cc: Hedy Hughes NP; Shaikh Kimberly Sen [address] [address] Patient Name: RONNY REEVES MRN: [id number] date: 1970 Sex: M Assigned Patient Location: MRI Current Patient Location: MRI Accession/Order Number: [id number] Exam Date: 12/23/2023 07:50 Report Date: 12/23/2023 09:03 At the request of: HEDY HUGHES Procedure: MR lumbar spine wo con EXAMINATION: MR lumbar spine wo con HISTORY: Lumbar Back Pain With Radiculopathy M54.16 COMPARISON: No relevant comparison available. TECHNIQUE: A variety of imaging planes and parameters were utilized for visualization of suspected pathology. FINDINGS: For the purposes of numbering, sagittal T2 image # 8 extends from the T11 vertebral body superiorly to the S3-S4 level inferiorly. PARASPINAL AREA: Normal with no visible mass. [...] disc protrusion. No central or foraminal stenosis MR/MR lumbar spine wo con IMPRESSION: Left foraminal disc herniation L4-L5 resulting in foraminal stenosis. Findings are consistent with patient's left leg radiculopathy Electronically authenticated by: TORSTEN DUQUE Date: 12/23/2023 09:03 Dictated By: Torsten Duque M.D. Signed By: 12/23/23904 DD/ 2 TD/TT: Wound Specialist: Procedure Note Radiology, Radiologist, MD - 12/23/2023 [place] [address] Magnetic Resonance Report Signed Patient: RONNY REEVES AMR#: [id number] : 1970Acct:[id number] Age/Sex: 53 / MADM Date: 12/23/23 Loc: MRI Attending Dr: Hedy Hughes NP Ordering Physician: Hedy Hughes NP Date of Service: 12/23/23 Procedure(s): MR lumbar spine wo con Accession Number(s): [id number] cc: Hedy Hughes NP; Shaikh Kimberly Sen [facility] [place] [id number] Patient Name: RONNY REEVES MRN: [id number] date: 1970 Sex: M Assigned Patient Location: MRI Current Patient Location: MRI Accession/Order Number: [id number] Exam Date: 12/23/2023 07:50 Report Date: 12/23/2023 09:03 At the request of: HEDY HUGHES Procedure: MR lumbar spine wo con EXAMINATION: MR lumbar spine wo con HISTORY: Lumbar Back Pain With Radiculopathy M54.16 COMPARISON: No relevant comparison available. TECHNIQUE: A variety of imaging planes and parameters were utilized for visualization of suspected pathology. FINDINGS: For the purposes of numbering, sagittal T2 image # 8 extends from the T11 vertebral body superiorly to the S3-S4 level inferiorly. PARASPINAL AREA: Normal with no visible mass. BONES: Normal alignment with no acute fracture or spondylolisthesis. [place] edema. Mild anterior wedging of the T11 and T12 vertebral bodies,physiologic versus remote. Moderate degenerative spondylosis CORD/CAUDA EQUINA: Normal caliber, contour, and signal intensity. DISC LEVELS: 12-L1: No significant disc/facet abnormality, spinal stenosis, orforaminal stenosis. L1-L2: No significant disc/facet abnormality, spinal stenosis, orforaminal stenosis. L2-L3: Disc desiccation. Mild posterior disc/osteophyte complex. Nocentral or foraminal stenosis L3-L4: Disc space narrowing and disc desiccation. Posterior broad-baseddisc protrusion extending posteriorly up to 2.7 mm. Facet osteoarthropathy and ligamentum flavum hypertrophy. No central canal stenosis. Mild bilateral foraminal stenosis L4-L5: Disc space narrowing and disc desiccation. Posterior broad-baseddisc protrusion. Focal left foraminal disc herniation of the extrusion type measuring 1.2 cm at the base extending posteriorly up to 4.6 mm, axialimage 6 and 7, sagittal image 7. No central canal or right foraminal stenosis. Moderate to severe left foraminal stenosis. L5-S1: Disc desiccation. Broad-based posterior disc protrusion. No centralor foraminal stenosis MR/MR lumbar spine wo con IMPRESSION: Left foraminal disc herniation L4-L5 resulting in foraminal stenosis.Findings are consistent with patient's left leg radiculopathy Electronically authenticated by: TORSTEN DUQUE Date: 12/23/2023 09:03 Dictated By: Torsten Duque M.D. Signed By:12/23/23904 DD/ 2 TD/TT: Wound Specialist: us Hedy Hughes WELLNESS EDUCATOR [facility] Final Result documented in this encounter Visit Diagnoses Not on filedocumented in this encounter Additional Health Concerns Assessment Noted Time PHQ-9 Depression Total Score: 12 024 2:53 PM EST documented as of this encounter Care Teams Coil Shaper Relationship Specialty Start Date End Date Shaikh Sen MD [address] [place] [address] PCP - General Internal Medicine 10/26/23 04/17/24 Carlos Sarabia MD [address] [place] [address] PCP - General Family Medicine 04/18/24 Lakia Carcamo NP [address] [place] [address] Nurse Practitioner Family Medicine 04/18/24 Sonal Fofana DO [address] [place] [address] Referring Physician Neurology 11/15/24 documented as of this encounter
--- OUTSIDE RECORDS SUMMARY | 2025-02-10 08:03 | XMS_ITS | Encounter Summary ---
Author Organization [facility] Address [address] [place] [address] Care Team Providers Care Boiler Operators Supervisor Name Role Phone Shaikh NELSON Sen Primary Care Provider [phone] Shaikh NELSON Sen Primary Care Provider [phone] Carlos Sarabia MD Primary Care Provider [phone] Lakia Carcamo INVESTMENT ACCOUNTING CLERK Unavailable [phone] Sonal Fofana DO Unavailable [phone] Encounter Details Date Type Department Care Team (Late st Contact Info) Description 09/10/2023 Clinisync Result Encounter [facility] External Department Unsolicited Shaikh Sen MD [address] [place] [address] Social History Tobacco Use Types Packs/Day Years Used Date Smoking Tobacco: Never Passive Smoke Exposure: Never Smokeless Tobacco: Never Alcohol Use Standard Drinks/Week Comments Yes 6 (1 standard drink = 0.6 oz pur e alcohol) Sex and Gender Information Value Date Recorded Sex Assigned at Not on file Legal Sex Male 6:38 PM EDT Gender Identity Not on file Sexual Orientation Not on file documented as of this encounter Plan of Treatment Not on file documented as of this encounter Procedures Procedure Name Priority Date/Time Associated Diagnosis Comments ECG 12-LEAD 09/10/2023 9:25 AM EST documented in this encounter Results * ECG 12-LEAD (09/10/2023 9:25 AM EST) Anatomical Region Laterality Modality Other 09/10/2023 9:25 AM EST Narrative 09/11/2023 7:00 AM EST [place] [id number] Electrocardiograph Report Signed Patient: RONNY REEVES MR#: [id number] : 1970 Acct:[id number] Age/Sex: 52 / M ADM Date: 09/10/23 Loc: CARD Attending Dr: Shaikh Mckinley Harris Ordering Physician: Shaikh Kimberly Sen Date of Service: 09/10/23 Procedure(s): ECG 12 lead Accession Number(s): [id number] cc: [facility] Test Date: 2023-09-10 Pat Name: RONNY REEVES Department: Room: - Gender: Male Paving Foreman: : 1970 Requested By: 1575 Order Number: [id number] Reading MD: JAMES MARROQUIN Measurements Intervals [place] Rate: 77 P: 68 ID: 147 QRS: 66 QRSD: 93 T: 55 QT: 381 QTc: 434 Interpretive Statements SINUS RHYTHM WITH OCCASIONAL SUPRAVENTRICULAR PREMATURE COMPLEXES No previous ECG available for comparison Electronically Signed On 09-11-2023 6:59:38 EST by JAMES MARROQUIN Dictated By: James Marroquin D.O. Signed By: 09/11/23 0700 09/11/23 0700 DD/ 0925 TD/TT: Process Plant Operator: Procedure Note Radiology, Radiologist, MD - 09/11/2023 [facility] [place] [id number] Electrocardiograph Report Signed Patient: RONNY REEVES AMR#: [id number] : 1970Acct:[id number] Age/Sex: 52 / MADM Date: 09/10/23 Loc: CARD Attending Dr: Shaikh Mckinley Harris Ordering Physician: Shaikh Kimberly Sen Date of Service: 09/10/23 Procedure(s): ECG 12 lead Accession Number(s): [id number] cc: [facility] Test Date: 2023-09-10 Pat Name: RONNY REEVES Department: Room: - Gender: Male Paving Foreman: : 1970 Requested By: 1575 Order Number: [id number] Reading MD: JAMES MARROQUIN Measurements Intervals [place] Rate: 77 P: 68 ID: 147 QRS: 66 QRSD: 93 T: 55 QT: 381 QTc: 434 Interpretive Statements SINUS RHYTHM WITH OCCASIONAL SUPRAVENTRICULAR PREMATURE COMPLEXES No previous ECG available for comparison Electronically Signed On 09-11-2023 6:59:38 EST by JAMES MARROQUIN Dictated By: James Marroquin D.O. Signed By:09/11/23 0709/11/23 07 DD/ 4 TD/TT: Process Plant Operator: us Shaikh Mckinley DAMON [facility] Final Result documented in this encounter Visit Diagnoses Not on filedocumented in this encounter Care Teams Boiler Operators Supervisor Relationship Specialty Start Date End Date Shaikh Sen MD PCP - General Internal Medicine 09/14/22 10/25/23 Shaikh Sen MD [address] [place] [address] PCP - General Internal Medicine 10/26/23 04/17/24 Carlos Sarabia MD [address] [place] [address] PCP - General Family Medicine 04/18/24 Lakia Carcamo NP [address] [place] [address] Nurse Practitioner Family Medicine 04/18/24 Sonal Fofana DO [address] [place] [address] Referring Physician Neurology 3/4/25 documented as of this encounter
--- OUTSIDE RECORDS SUMMARY | 2025-02-10 08:03 | XMS_ITS | Encounter Summary ---
Author Organization [facility] Address [address] [place] [address] Care Team Providers Care Supervisor Network Control Operators Name Role Phone Shaikh NELSON Sen Primary Care Provider [phone] Carlos Sarabia MD Primary Care Provider [phone] Lakia Carcamo WET FINISHER WOOL Unavailable [phone] Sonal Fofana DO Unavailable [phone] Encounter Details Date Type Department Care Team (Late st Contact Info) Description 02/15/2024 Orders Only [facility] [address] [place] [address] Shaikh Sen MD [address] [place] [address] Social History Tobacco Use Types Packs/Day Years [...] or relatives? Twice a week 12/24/2023 Attends Druze Services Not on file 12/23 Do you belong to any clubs o r organizations such as confucianism groups, unions, fraternal or athletic groups, or [...] Date Recorded Patient Health Questionnaire-2 Score 0 02/10/2024 [facility] - Occupational Stress Questionnaire Answer Date [...] place to sleep or slept in a usp (including now)? No 12/24/2023 Sex and Gender [...] documented as of this encounter Care Teams Supervisor Network Control Operators Relationship Specialty Start Date End Date Shaikh Sen MD [address] [place] [address] PCP - General Internal Medicine 10/26/23 04/17/24 Carlos Sarabia MD [address] [place] [address] PCP - General Family Medicine 04/18/24 Lakia Carcamo NP [address] [place] [address] Nurse Practitioner Family Medicine 04/18/24 Sonal Fofana DO [address] [place] [address] Referring Physician Neurology 11/15/24 documented as of this encounter
--- OUTSIDE RECORDS SUMMARY | 2025-02-10 08:03 | XMS_ITS | Encounter Summary ---
Author Organization [facility] Address [address] [place] [address] Care Team Providers Care Maintenance Trainer Name Role Phone Shaikh NELSON Sen Primary Care Provider [phone] Shaikh NELSON Sen Primary Care Provider [phone] Carlos Sarabia MD Primary Care Provider Lakia Carcamo DIVERSIONAL THERAPIST Unavailable [phone] Sonal Fofana DO Unavailable [phone] Encounter Details Date Type Department Care Team (Late st Contact Info) Description 10/08/2023 [facility] [address] [place] [address] Shaikh Sen MD [address] [place] [address] Social History Tobacco Use Types Packs/Day Years [...] Procedure Name Priority Date/Time Associated Diagnosis Comments STRESS TEST ONLY Routine 10/06/2023 10:38 AM EST documented in this encounter Results * Stress test (10/06/2023 10:38 AM EST) Anatomical Region Laterality Modality Heart Other us Shaikh Mckinley DAMON CV STRESS PROCEDURES Final Resu lt documented in this encounter Visit Diagnoses Not on filedocumented in this encounter Care Teams Maintenance Trainer Relationship Specialty Start Date End Date Shaikh Sen MD PCP - General Internal Medicine 09/14/22 10/25/23 Shaikh Sen MD [address] [place] [address] PCP - General Internal Medicine 10/26/23 04/17/24 Carlos Sarabia MD [address] [place] [address] PCP - General Family Medicine 04/18/24 Lakia Carcamo NP [address] [place] [address] Nurse Practitioner Family Medicine 04/18/24 Sonal Fofana DO [address] [place] [address] Referring Physician Neurology 11/15/24 documented as of this encounter
--- OUTSIDE RECORDS SUMMARY | 2025-02-10 08:03 | XMS_ITS | Clinical Summary ---
Author Organization [facility] Address [id number] [address] [place] [address] Care Team Providers Care Automated Process Operator Name Role Phone Shaikh NELSON Sen Primary Care Provider [phone] Allergies No known active allergies Medications predniSONE (DELTASONE) 20 mg tablet Take 1 tablet (20 mg total) by mouth in the morning and 1 tablet (20 mg total) before bedtime. 12/24/2023 Active gabapentin (NEURONTIN) 100 mg capsule Take 1 capsule (100 mg total) by mouth in the morning and 1 capsule (100 mg total) at noon and 1 capsule (100 mg total) in the evening and 1 capsule (100 mg total) before bedtime. Active diphenhydrAMINE (BENADRYL) 25 mg capsule Take 1 capsule (25 mg total) by mouth every 6 (six) hours as needed for itching. Active albuterol (PROVENTIL HFA;VENTOLIN HFA) 90 mcg/actuation inhaler Inhale 2 puffs every 4 (four) hours as needed. 08/31/2023 Active amLODIPine (NORVASC) 10 mg tablet TAKE 1 TABLET(10 MG) BY MOUTH IN THE MORNING 11/30/2023 Active ibuprofen (MOTRIN) 800 mg tablet Take 1 tablet (800 mg total) by mouth every 8 (eight) hours as needed for pain. 10/05/2023 Active apixaban (ELIQUIS) 5 mg tablet Take 1 tablet (5 mg total) by mouth in the morning and 1 tablet (5 mg total) before bedtime. 02/06/2024 Active zolpidem CR (AMBIEN CR) 12.5 mg CR tablet Take 1 tablet (12.5 mg total) by mouth nightly as needed for sleep. 01/05/2024 Active Active Problems Problem Noted Date Diagnosed Date Asthma 12/29/2023 BPH with urinary obstruction 12/29/2023 Hydronephrosis 12/29/2023 Lumbar disc disease with radiculopathy HNP (herniated nucleus pulposus), lumbar 024 Overview (12/29/2023): Last Assessment & Plan: Reviewed in detail his MRI, he has bulging disc and L3-L4, HNP L4-L5, and bulge at L5-S1 He is asking for more pain medication. He has not finished all the doses of steroids he was given in ER last week, took about 4 days of this (looks like 60mg for 4 days, 40mg for 4 days and 20mg for 2 days).-this was determined after he left the office and is waiting on me to order new. So I will have him do: 40mg for 4 days, 20mg for 4 days, then 10mg for 4 days.. We also discussed adding some gabapentin as well. He will titrate this He would like to see a neurosugeon ([facility]) and Pain Mgmt ([facility] in [place]) Keep fu appt with fawwad, and rx for wheeled walker w seat and handicapped parking sticker given for patient at his request Anxiety 11/04/2023 Overview (12/29/2023): Last Assessment & Plan: Anxiety - due to recent personal/marital conflict. Going through divorce and it has affected his mental health. Denies mild depressive symptoms every now and then along with anxiety. His symptoms are gradually improving and he would prefer to avoid medications at this time. Other male erectile dysfunction 11/04/2023 Overview (12/29/2023): Last Assessment & Plan: Likely due to anxiety, marital conflict. Has normal Libido, spontaneous erections. Normal testosterone levels when measures previously. Was prescribed Viagra but he does not think its helping as much as he would like it to help. Trial of Cialis Acute bilateral low back pain with right-sided s ciatica 10/05/2023 Overview (12/29/2023): Last Assessment & Plan: Acute low back pain, right sided. Was seen last week. His pain started when was doing leg curls while laying down. Due to severity of pain and the physical nature of work, he was taken off of work so that he can recover and today he is being seen for follow up of previous visit. He is doing better than before. He already went back to work and reports pain is bearable with periods of worsening pain. Will order PT C/w conservative measures. Take tylenol or motrin as needed for pain. Alcohol use disorder 08/31/2023 Overview (12/29/2023): Last Assessment & Plan: Patient reports excessively drinking alcohol. Drinks hard liquor almost on a daily basis. Patient counseled on harmful effects of excessive alcohol intake. Patient educated on behavioral and therapeutic options available for alcohol use disorder. Questions/concerns related to those options were addressed and patient was encouraged to reach out to provider if/when they are ready to quite alcohol. He realizes that he should cut down drinking and will work on decreasing his alcohol intake. Intermittent palpitations 08/31/2023 Overview (12/29/2023): Last Assessment & Plan: Reports one hx of palpitations, associated lightheadedness, felt clammy and weak, while at work. Denies CP, SOB. His BP was 148/92. Symptoms lasted for the whole day. No prior hx of similar episode. Patient has hx of HTN - does not take his meds regularly. He is also going through a difficult time in his personal life and is affected by it too. Will order TSH, CBC, CMP and Holter monitor for the patient. Moderate persistent asthma without complication 08/31/2023 Overview (12/29/2023): Last Assessment & Plan: Mod-severe obstructive lung disease with positive bronchodilator response on PFTS 08/04 Using breo-ellipta for it. Changed to advair due to formulary and cost of medication. Has not picked up yet. Well controlled. Has not needed rescue inhaler in a while Other chest pain 08/31/2023 Overview (12/29/2023): Last Assessment & Plan: Patient reports intermittent midsternal chest discomfort, that is exertional in nature but can happen at rest too. Pain resolves on its own within a few seconds. He denies any associated symptoms with chest pain but had one episode of palpitations that lasted the whole day. Patient has no known CAD. His risk factors for CAD include HTN, Age. Holter monitor - no arhythmia, intermittent sinus tach. Stress test - normal Likely non cardiac etiology. Suspect his symptoms are from anxiety. He is going through a divorce and he feels better than before. Patient offered help to manage his anxiety but he would like to avoid medications and work on his anxiety on his own. . Will order exercise stress test for the patient, EKG, Troponin and BNP. Essential hypertension 08/24/2012 Overview (12/29/2023): Last Assessment & Plan: Well controlled on Amlodipine but elevated today. This could be due to pain also as he seems really uncomfortable and in pain Monitor for now. No changes made. Social History Tobacco Use Types Packs/Day Years Used Date Smoking Tobacco: Never Smokeless Tobacco: Never Tobacco Cessation:Counseling Given: Not Answered Alcohol Use Standard Drinks/Week Comments Yes 8 (1 standard drink = 0.6 oz pur e alcohol) Childcare Answer Date Recorded Childcare Unknown 02/23/2019 Employment Answer Date Recorded Employment Unknown 02/23/2019 Hunger Screening Answer Date Recorded Within the past 12 months we worried whether our food would run out before we got money to buy more. Never True 12/29/2023 Within the past 12 months th e food we bought just didn't last and we didn't have money to get more. Never True 12/29/2023 Sex and Gender Information Value Date Recorded Sex Assigned at Not on file Legal Sex Male 11:41 AM EDT Gender Identity Not on file Sexual Orientation Not on file Last Filed Vital Signs Vital Sign Reading Time Taken Comments Blood Pressure 136/98 03/01/2024 1:47 PM EDT Pulse 69 03/01/2024 1:47 PM EDT Temperature - - Respiratory Rate 16 03/01/2024 1:47 PM EDT Oxygen Saturation 98% 03/01/2024 1:47 PM EDT Inhaled Oxygen Concentration - - Weight 65.8 kg (145 lb) 03/01/2024 1:47 PM EDT Height 165.1 cm (5' 5 ) 03/01/2024 1:47 PM EDT Body Mass Index 24.13 03/01/2024 1:47 PM EDT Plan of Treatment Health Maintenance Due Date Last Done Comments Depression Screening 1980 DTaP,Tdap and Td Vaccines (1 - Tdap) 11/22/1987 Zoster (Shingles) Vaccine (1 of 2) 2018 Adult BMI Screening 03/01/2025 03/01/2024 Tobacco Screening 03/01/2025 03/01/2024 Influenza Vaccine 05/15/2025 06/15/2018 Colonoscopy 07/01/2028 07/01/2023 Medical Devices Not on file Insurance [employer] Care Teams Automated Process Operator Relationship Specialty Start Date End Date Shaikh Sen MD PCP - General Internal Medicine 06/30/23
--- OUTSIDE RECORDS SUMMARY | 2025-02-10 08:03 | XMS_ITS | Encounter Summary ---
Author Organization [facility] Address [address] [place] [address] Care Team Providers Care Order Packer Name Role Phone Shaikh NELSON Sen Primary Care Provider [phone] Carlos Sarabia MD Primary Care Provider [phone] Lakia Carcamo TERRAZZO JOURNEYMAN Unavailable [phone] Sonal Fofana DO Unavailable Encounter Details Date Type Department Care Team (Late st Contact Info) Description 01/13/2024 Orders Only [facility] [address] [place] [phone] Shaikh Sen MD [address] [place] [address] Social History Tobacco Use Types Packs/Day Years [...] or relatives? Twice a week 12/24/2023 Attends [employer] Services Not on file 12/23 Do you belong to any clubs o r organizations such as rastafarian groups, unions, fraternal or athletic groups, or [...] Date Recorded Patient Health Questionnaire-2 Score 0 01/11/2024 [facility] - Occupational Stress Questionnaire Answer Date Recorded [...] place to sleep or slept in a retirement (including now)? No 12/24/2023 Sex and Gender [...] documented as of this encounter Care Teams Order Packer Relationship Specialty Start Date End Date Shaikh Sen MD [address] [place] [address] PCP - General Internal Medicine 10/26/23 04/17/24 Carlos Sarabia MD [address] [place] [address] PCP - General Family Medicine 04/18/24 Lakai Carcamo NP [address] [place] [phone] Nurse Practitioner Family Medicine 04/18/24 Sonal Fofana DO [address] [place] [address] Referring Physician Neurology 11/15/24 documented as of this encounter
--- OUTSIDE RECORDS SUMMARY | 2025-02-10 08:03 | XMS_ITS | Clinical Summary ---
Author Organization [facility] Address [address] [place] [address] Care Team Providers Care Cut And Print Machine Operator Name Role Phone Carlos Sarabia MD Primary Care Provider [phone] Lakia Carcamo AUTOMATIC TRIMMING SEWER Unavailable [phone] Sonal Fofana DO Unavailable [phone] Allergies No known active allergies Medications albuterol HFA 90 mcg/act inhalerIndication s:Moderate persistent asthma without complication (CMS/[facility]) Inhale 2 puffs every 4 (four) hours if needed for wheezing 18 g 1 3 Active Lactobacillus (Acidophilus Probiotic) tablet Take 1 tablet by mouth every 12 (twelve) hours 4 Active sildenafil (Viagra) 100 MG tablet TAKE 1 TABLET BY MOUTH NEEDED FOR SEXUAL ACTIVITY 30 MINUTES FOR 4 HOURS BEFORE NEEDED 4 Active eszopiclone (Lunesta) 3 MG tabletIndications :Primary insomnia Take 1 tablet (3 mg) by mouth at bedtime 30 mins before bed 30 tablet 2 5 02/22/20 25 Active Active Problems Problem Noted Date Diagnosed Date Occult blood in stools 09/20/2024 Assessment & Plan (09/20/2024 3:27 PM EST): Pt reports he had back tarry stools X6-7 occurrences within ONE day on 09/03/2024. Pt states it stopped after 09/03/2024. Pt reports he went to Urgent Care, he states he was told there that they could not treat a potential GI bleed and advised him to be seen at ER. Pt states he did not report to ER and instead waited to follow up at today's OV. Denies any recurrence of blood in stool since that episode. Denies abdominal pain or distention/blood urine./back pain/taking any iron or eating dark green or leafy vegetables recently before occurrence. Last colonoscopy done 12/2023. Will refer patient to GI. Advised pt if occurs again or develops BRBPR to report immediately to ER. Pt verbalized understanding. Deep venous thrombosis of left popliteal vein Irritable bowel syndrome wit h both constipation and diarrhea 02/04/2024 Assessment & Plan (02/04/2024 1:18 PM EDT): IBS with diarrhea predominantly with periods of constipation if he takes imodium. Recent worsening of his symptoms likely due to changes in his diet - asked patient to stop using new spice he is using and see if his symptoms improve 4-5 BM, watery , sometimes formed stools. No Nausea/vomiting or blood in stool. Colonoscopy 2022 - polyp removed, no mass. Trial of flagyl for possible small bowel bacterial overgrowth, along with loperamide as needed. If persistent symptoms , will refer to GI. Acute deep vein thrombosis of left popliteal vei n 01/11/2024 Assessment & Plan (05/12/2024 4:49 PM EDT): Diagnosed 01/07/24 On Eliquis , provoked. Will need rx for a minimum of 3 months. Stopped using Eliquis all together. Did not complete ultrasound, declines interest Reiterated/educated patient on the importance of using Eliquis and completing imaging studies as prescribed. Assessment & Plan (03/14/2024 3:29 PM EDT): Diagnosed ;01/07/24 On Eliquis , provoked. Will need rx for a minimum of 3 months. Stopped using Eliquis for 1 week on his own Reiterated/educated patient on the importance of using Eliquis as prescribed. US first week of April to decide on whether or not, he can be taken off of eliquis. Assessment & Plan (01/11/2024 12:39 PM EDT): New Diagnosis 01/07/24 On Eliquis , provoked. Will need rx for a minimum of 3 months. Patient requesting a referral to vascular surgery - as he will need clearance from them for spinal injections for his back pain. Lumbar disc disease with radiculopathy 4 HNP (herniated nucleus pulposus), lumbar 024 Assessment & Plan (01/11/2024 12:39 PM EDT): Reviewed in detail his MRI, he has [...] He would like to see a neurosugeon ([facility]) and Pain Mgmt ([facility] in [place]) Keep fu appt with fawwad, and rx for wheeled walker w seat and handicapped parking sticker given for patient at his request Assessment & Plan (12/24/2023 7:54 PM EDT): Reviewed in detail his MRI, he has [...] He would like to see a neurosugeon ([facility]) and Pain Mgmt ([facility] in [place]) Keep fu appt with fawwad, and rx for wheeled walker w seat and handicapped parking sticker given for patient at his request Lumbar back pain with radicu lopathy affecting lower extremity 12/17/2023 Assessment & Plan (03/14/2024 3:28 PM EDT): Chronic Lumbar Back pain with left lower extremity radiculopathy. MRI LS shows multilevel degenerative disc disease, most pronounced at L4-5 He was seen by Pain Clinic and NS and was recommended to have nerve ablation at L4-5 but this was complicated by acute DVT for which he is now on Eliquis. He was seen by vascular surgery - needs to be on eliquis for a minimum 3 months and only then he can be taken off of it for nerve ablation/episural steroid injection. He returned to work with restrictions for 3 weeks now, he has been doing reasonably ok. His pain still flares up intermittently, but it is manageable. Not using gabapentin. C/w tylenol and/or motrin as needed for pain. Patient educated on worrisome signs and symptoms - and return to ED if develops red flags. I will release him from work related restrictions, and he can return to work w/o restrictions Assessment & Plan (02/10/2024 1:16 PM EDT): Chronic Lumbar Back pain with left lower extremity radiculopathy. MRI LS shows multilevel degenerative disc disease, most pronounced at L4-5 He was seen by Pain Clinic and NS and was recommended to have nerve ablation at L4-5 but this was complicated by acute DVT for which he is now on Eliquis. He was seen by vascular surgery - needs to be on eliquis for a minimum 3 months and only then he can be taken off of it for nerve ablation/episural steroid injection. Patient feels drowsy and sleepy on gabapentin. He was asked last appointment to try and go without it and see how he feels w/o it. He feels pain is reasonably controlled w/o gabapentin. C/w tylenol and/or motrin as needed for pain. Patient educated on worrisome signs and symptoms - and return to ED if develops red flags. I feel at this point, he has recovered sufficiently to return to work with restrictions. I will place these restrictions for 2 months - by that he would have seen pain clinic and have epidural/nerve ablation to provide him the necessary relief. He was also instructed to reach out to our office if he is unable to work and if work aggravates his pain Assessment & Plan (02/04/2024 1:25 PM EDT): Chronic Lumbar Back pain with left lower extremity radiculopathy. MRI LS shows multilevel degenerative disc disease, most pronounced at L4-5 He was seen by Pain Clinic and NS and was recommended to have nerve ablation at L4-5 but this was complicated by acute DVT for which he is now on Eliquis. He was seen by vascular surgery - needs to be on eliquis for a minimum 3 months and only then he can be taken off of it for nerve ablation/episural steroid injection. Pain is reasonably controlled with Gabapentin but his functional capacity/mobility is very limited. His pain aggravates with bending and lifting and he is unable to walk or stand for long. C/w tylenol and/or motrin as needed for pain. Mild weakness on left LE - weak hip flexion, knee flexion and extension - improved. Patient educated on worrisome signs and symptoms - and return to ED if develops red flags. Patient unable to work due to his current illness. He is at risk of aggravating his back pain and radiculopathy and prolong his recovery as a result of that. I will take him off of work for another month to allow him time to recover. I will add baclofen as needed for muscle spasms/back stiffness to help improve his mobility. Assessment & Plan (01/11/2024 12:42 PM EDT): Chronic Lumbar Back pain with left lower extremity radiculopathy. MRI LS shows multilevel degenerative disc disease, most pronounced at L4-5 Has saw Pain provider at [facility] on January 06 and scheduled to see Pain Provider for epidural sterid injection. But this was complicated because he developed acute DVT and now on Eliquis for it and unable to get spinal injections while on it. Pain is reasonably controlled with Gabapentin. C/w tylenol and/or motrin as needed for pain. Mild weakness on left LE - weak hip flexion, knee flexion and extension - unchanged. Patient has not been able to see NS - as there is a long wait list - new referral ordered for Dr Masterson in [place] Patient educated on worrisome signs and symptoms - and return to ED if develops red flags. Patient unable to work due to his current illness as he is still struggling with pain and weakness - will write him off of work untiil 02/11/24 Assessment & Plan (12/30/2023 3:34 PM EDT): Chronic Lumbar Back pain with left lower extremity radiculopathy. MRI LS shows multilevel degenerative disc disease, most pronounced at L4-5 Has an appointment with NS at [facility] on January 06 and scheduled to see Pain Provider for epidural sterid injection. Pain is reasonably controlled with Gabapentin. C/w tylenol and/or motrin as needed for pain. Mild weakness on left LE - weak hip flexion, knee flexion and extension. Patient educated on worrisome signs and symptoms - and return to ED if develops red flags. Patient unable to work due to his current illness, as going back to work could aggravate his pain. He was taken off of work until 01/12/24 Assessment & Plan (12/17/2023 3:22 PM EDT): Received call from [facility] ER doctor Kermit Mcdonough. Pt was in ER today 12/17/23 as well as 12/16/23. He was exhibiting an increase in lumbar back pain, radiation into foot and NT, with an absent patellar reflex. He was going to place him on a large steroid taper, and I reported that I would place an order for an MRI lumbar spine And fu in office next week Anxiety 11/04/2023 Assessment & Plan (11/04/2023 3:25 PM EST): Anxiety - due to recent personal/marital conflict. Going through divorce and it has affected his mental health. Denies mild depressive symptoms every now and then along with anxiety. His symptoms are gradually improving and he would prefer to avoid medications at this time. Other male erectile dysfunction 11/04/2023 Assessment & Plan (11/04/2023 3:27 PM EST): Likely due to anxiety, marital conflict. Has normal Libido, spontaneous erections. Normal testosterone levels when measures previously. Was prescribed Viagra but he does not think its helping as much as he would like it to help. Trial of Cialis Acute bilateral low back pain with right-sided s ciatica 10/05/2023 Assessment & Plan (12/14/2023 3:10 PM EDT): Acute low back pain, right sided. Was [...] tylenol or motrin as needed for pain. Assessment & Plan (12/07/2023 6:50 PM EDT): Acute low back pain, right sided, started week ago. He was doing leg curls laying down and did something to his back. No improvement with current regimen. Will call in oxycodone to be used as needed Assessment & Plan (12/03/2023 10:30 AM EDT): Acute low back pain, right sided, started 2-3 days ago. He was doing leg curls laying down and did something to his back. He is going to chiropractor and had recent XRAYs - not available to review. He said he will get a copy of those tomorrow. Patient asking if he could a shot for acute relief. He was given depo-medrol 80 mg IM I will also prescribe him prednisone taper along with robaxin for pain. He can continue to use motrin or aleve. Due to patient's pain. 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 Will take him off of work from 12/03 -12/10 Will re assess on 12/09 to decide whether he has sufficiently recovered to work on 12/10 or not. Insomnia 08/31/2023 Assessment & Plan (06/14/2024 3:35 PM EDT): Went to see Dr. Fofana- was started on Lunesta; States he is now getting REM sleep. Feels much better. States he is having better BM's and urinating better; States he is gaining weight, has slowed down on drinking; Feels significantly better overall. Follows up again on 06/[address] Fofana Assessment & Plan (05/12/2024 4:51 PM EDT): Currently taking Ambien; Would like to discontinue but is concerned about sleep habits. Requests to see sleep medicine. Referral sent. Assessment & Plan (12/03/2023 9:55 AM EDT): Using Ambien as needed. Working well for him. No adverse effects. Assessment & Plan (08/31/2023 4:08 PM EST): Using Ambien as needed. Working well for him. No adverse effects. Intermittent palpitations 08/31/2023 Assessment & Plan (08/31/2023 5:21 PM EST): Reports one hx of palpitations, associated lightheadedness, [...] patient. Moderate persistent asthma without complication 08/31/2023 Assessment & Plan (05/12/2024 4:52 PM EDT): Only using rescue inhaler (Albuterol) Stopped Advair. Didn't think he needed it. Feels symptoms are well controlled currently. Mod-severe obstructive lung disease with positive bronchodilator response on PFTS 08/04 Assessment & Plan (12/03/2023 9:56 AM EDT): Mod-severe obstructive lung disease with positive bronchodilator response on PFTS 08/04 Using breo-ellipta for it. Changed to advair due to formulary and cost of medication. Has not picked up yet. Well controlled. Has not needed rescue inhaler in a while Assessment & Plan (11/04/2023 3:21 PM EST): Mod-severe obstructive lung disease with positive bronchodilator response on PFTS 08/04 Using breo-ellipta for it. Assessment & Plan (08/31/2023 4:10 PM EST): Mod-severe obstructive lung disease with positive bronchodilator response on PFTS 08/04 Recent asthma flare up - last Thursday. Did not require Prednisone or physician visit. His asthma is more activity induced/related along with exposure to dust/dander. He does not use Breo on a regular basis because of cost. Uses ventolin as needed. Non smoker. Other chest pain 08/31/2023 Assessment & Plan (11/04/2023 3:24 PM EST): Patient reports intermittent midsternal chest discomfort, that [...] for the patient, EKG, Troponin and BNP. Assessment & Plan (08/31/2023 5:22 PM EST): Patient reports intermittent midsternal chest discomfort, that is usually exertional in nature and resolves on its own within a few seconds. He denies any associated symptoms with chest pain but had one episode of palpitations that lasted the whole day. Patient has no known CAD. His risk factors for CAD include HTN, Age. Will order exercise stress test for the patient, EKG, Troponin and BNP. Alcohol use disorder 08/31/2023 Assessment & Plan (08/31/2023 5:25 PM EST): Patient reports excessively drinking alcohol. Drinks hard [...] will work on decreasing his alcohol intake. Essential hypertension 08/24/2012 Assessment & Plan (06/14/2024 3:36 PM EDT): Currently taking no medications; Pt was prescribed Amlodipine 10mg but stopped taking all together. States he does not believe he needs it; Checks BP at home; Averages are 120's-130's on logs brought in. Advised pt to continue checking BP and call if pressures go above 135-140 SBP. Denies orthostatic changes, dizziness, cough, shortness of breath, swelling in extremities. Given BP log, advised pt to record BP and bring log back with them to next visit. Assessment & Plan (03/14/2024 3:21 PM EDT): Well controlled on Amlodipine. At goal. Assessment & Plan (12/03/2023 9:57 AM EDT): Well controlled on Amlodipine but elevated today. This could be due to pain also as he seems really uncomfortable and in pain Monitor for now. No changes made. Assessment & Plan (11/04/2023 3:21 PM EST): Well controlled. C/w Norvasc. Asymptomatic. Assessment & Plan (08/31/2023 4:11 PM EST): BP well controlled. On average less than 130/90. Tolerating Anti hypertensive w/o adverse effects. Denies lightheadedness, dizziness, syncope, presyncope. Patient encouraged to continue with home BP monitoring and call office if he experiences orthostatic symptoms or persistently elevated BP. Patient does not use his meds as prescribed and takes them sporadically. Resolved Problems Problem Noted Date Diagnosed Date Resolved Date Mild intermittent asthma 08/31/2023 Encounters Date Type Department Care Team Description 01/05/2025 12:45 PM EDT Office Visit [place] [id number] [phone] Sonal Fofana DO Vocal tic disorder (CMS/HCC) (Primary Dx); Primary insomnia; Hypersomnia; Inadequate sleep hygiene 01/05/2025 Telephone [place] [id number] [address] Sonal Fofana DO Blood Work 01/02/2025 Telephone [place] [id number] [address] Sonal Fofana DO Symptoms 12/14/2024 Abstract [facility] [address] [place] [address] Hedy Hughes NP 11/22/2024 Refill [facility] [address] [place] [address] Sonal Fofana DO Primary insomnia 11/15/2024 5:00 PM EST Office Visit [place] [id number] [phone] Sonal Fofana DO Alcohol use disorder (Primary Dx); Primary insomnia; Anxiety; Inadequate sleep hygiene 11/15/2024 Bamboo flowsheet [place] [id number] [phone] Sonal Fofana DO from Last 3 Months Immunizations Immunization Administration Dates Next Due Influenza, injectable, MDCK, quadrivalent 2017 Family History Medical History Relation Name Comments Hypertension Brother Cancer Father Diabetes Father Pancreatic Cancer Father Pancreatic cancer Father Lung disease Mother Diabetes Son Liver transplant Son Relation Name Status Comments Brother Father Mother Alive Son Social History Tobacco Use Types Packs/Day Years Used Date Smoking Tobacco: Never Passive Smoke Exposure: Never Smokeless Tobacco: Never Tobacco Cessation:Counseling Given: Not Answered Alcohol Use Standard Drinks/Week Comments Yes 6 [...] or relatives? Twice a week 12/24/2023 Attends [employer] Services Not on file 12/23 Do you belong to any clubs o r organizations such as adventist groups, unions, fraternal or athletic groups, or [...] Recorded Patient Health Questionnaire-2 Score 4 05/12/2024 [facility] - Occupational Stress [...] place to sleep or slept in a group home (including now)? No 12/24/2023 Sex and Gender Information Value Date Recorded Sex Assigned at Not on file Legal Sex Male 6:38 PM EDT Gender Identity Not on file Sexual Orientation Not on file Last Filed Vital Signs Vital Sign Reading Time Taken Comments Blood Pressure 152/86 01/05/2025 12:59 PM EDT Pulse 77 01/05/2025 12:59 PM EDT Temperature 36.9 C (98.4 F) 09/20/2024 3:05 PM EST Respiratory Rate 18 09/20/2024 3:05 PM EST Oxygen Saturation 99% 01/05/2025 12: 59 PM EDT Inhaled Oxygen Concentration - - Weight 65.7 kg (144 lb 12.8 oz) 025 12:59 PM EDT Height 165.1 cm (5' 5 ) 01/05/2025 12:5 9 PM EDT Body Mass Index 24.1 01/05/2025 12:59 PM EDT Plan of Treatment Health Maintenance Due Date Last Done Comments CT Colonography 1968 FIT 1968 FOBT 1968 Sigmoidoscopy 1968 FIT-DNA 01/20/2025 01/20/2022 Influenza Vaccine (Season Ended) 2025 06/15/20 18 Colonoscopy 07/01/2033 07/01/2023 Colorectal Cancer Screening 07/01/2033 Insurance [employer] Care Teams Cut And Print Machine Operator Relationship Specialty Start Date End Date Carlos Sarabia MD [address] [place] [phone] PCP - General Family Medicine 04/18/24 Lakia Carcamo NP [address] [place] [id number] Nurse Practitioner Family Medicine 04/18/24 Sonal Fofana DO [address] [place] [address] Referring Physician Neurology 11/15/24
--- OUTSIDE RECORDS SUMMARY | 2025-02-10 08:03 | XMS_ITS | Encounter Summary ---
Author Organization [facility] Address [address] [place] [address] Care Team Providers Care Oracle Wms Consultant Name Role Phone Shaikh NELSON Sen Primary Care Provider [phone] Carlos Sarabia MD Primary Care Provider [phone] Lakia Carcamo MANAGER OF INTERNATIONAL Unavailable Sonal Fofana DO Unavailable [phone] Reason for Visit * Reason Comments Med Refill Encounter Details Date Type Department Care Team (Late st Contact Info) Description 11/27/2023 [facility] [address] [place] [address] Shaikh Sen MD [address] [place] [address] Essential hypertension (CMS/HCC) Social History Tobacco Use Types Packs/Day Years Used Date Smoking Tobacco: Never Passive Smoke Exposure: Never Smokeless Tobacco: Never Alcohol Use Standard Drinks/Week Comments Yes 6 (1 standard drink = 0.6 oz pur e alcohol) PHQ-2 Answer Date Recorded Patient Health Questionnaire-2 Score 4 11/04/2023 Sex and Gender Information Value Date Recorded Sex Assigned at Not on file Legal Sex Male 6:38 PM EDT Gender Identity Not on file Sexual Orientation Not on file documented as of this encounter Miscellaneous Notes * Telephone Encounter - Shaikh Mckinley MD - 11/30/2023 11:20 AM EDT Approving, but needs appt for additional refills. documented in this encounter Plan of Treatment Not on file documented as of this encounter Visit Diagnoses Diagnosis Essential hypertension (CMS/HCC) Unspecified essential hypertension documented in this encounter Additional Health Concerns Assessment Noted Time PHQ-9 Depression Total Score: 12 024 2:53 PM EST documented as of this encounter Care Teams Oracle Wms Consultant Relationship Specialty Start Date End Date Shaikh Sen MD [address] [place] [address] PCP - General Internal Medicine 10/26/23 04/17/24 Carlos Sarabia MD [address] [place] [address] PCP - General Family Medicine 04/18/24 Lakia Carcamo NP [address] [place] [address] Nurse Practitioner Family Medicine 04/18/24 Sonal Fofana DO [address] [place] [address] Referring Physician Neurology 11/15/24 documented as of this encounter
--- OUTSIDE RECORDS SUMMARY | 2025-02-10 08:03 | XMS_ITS | Encounter Summary ---
Author Organization [facility] Address [address] [place] [address] Care Team Providers Care Automotive Diagnostic Technician Name Role Phone Shaikh NELSON Sen Primary Care Provider [phone] Carlos Sarabia MD Primary Care Provider [phone] Lakia Carcamo LEAD INGOT MOLDER Unavailable [phone] Sonal Fofana DO Unavailable [phone] Encounter Details Date Type Department Care Team (Late st Contact Info) Description 12/16/2023 Orders Only [facility] [address] [place] [phone] Nael Carmen MD [address] [place], [place] [id number] Social History Tobacco Use Types Packs/Day Years Used Date Smoking Tobacco: Never Passive Smoke Exposure: Never Smokeless Tobacco: Never Alcohol Use Standard Drinks/Week Comments Yes 6 (1 standard drink = 0.6 oz pur e alcohol) PHQ-2 Answer Date Recorded Patient Health Questionnaire-2 Score 0 12/03/2023 Sex and Gender Information Value Date Recorded Sex Assigned at Not on file Legal Sex Male 6:38 PM EDT Gender Identity Not on file Sexual Orientation Not on file documented as of this encounter Plan of Treatment Not on file documented as of this encounter Procedures Procedure Name Priority Date/Time Associated Diagnosis Comments XR HIP 2-3 VIEWS LEFT Routine 12/16/2023 8:16 AM EDT XR LUMBAR SPINE 2 OR 3V Routine 12/16/2023 8:12 AM EDT documented in this encounter Results * XR HIP 2-3 VIEWS LEFT (12/16/2023 8:16 AM EDT) Anatomical Region Laterality Modality Radiographic Latha ging Nael Carmen MD IMG XR PROCEDURES Final Resul t * XR LUMBAR SPINE 2 OR 3V (12/16/2023 8:12 AM EDT) Anatomical Region Laterality Modality Radiographic Latha ging Nael Carmen MD IMG XR PROCEDURES Final Resul t documented in this encounter Visit Diagnoses Not on filedocumented in this encounter Additional Health Concerns Assessment Noted Time PHQ-9 Depression Total Score: 12 024 2:53 PM EST documented as of this encounter Care Teams Automotive Diagnostic Technician Relationship Specialty Start Date End Date Shaikh Sen MD [address] [place] [phone] PCP - General Internal Medicine 10/26/23 04/17/24 Carlos Sarabia MD [address] [place] [address] PCP - General Family Medicine 04/18/24 Lakia Carcamo NP [address] [place] [phone] Nurse Practitioner Family Medicine 04/18/24 Sonal Fofana DO [address] [place] [address] Referring Physician Neurology 11/15/24 documented as of this encounter
--- OUTSIDE RECORDS SUMMARY | 2025-02-10 08:03 | XMS_ITS | Encounter Summary ---
Author Organization [facility] Address [address] [place] [address] Care Team Providers Care Leather Splitter Name Role Phone Shaikh NELSON Sen Primary Care Provider [phone] Shaikh NELSON Sen Primary Care Provider [phone] Carlos Sarabia MD Primary Care Provider [phone] Lakia Carcamo PARTS ADMINISTRATOR Unavailable [phone] Sonal Fofana DO Unavailable [phone] Encounter Details Date Type Department Care Team (Late st Contact Info) Description 09/24/2023 Clinisync Result Encounter [facility] External Department Unsolicited Shaikh Sen MD [address] [place] [address] Social History Tobacco Use Types Packs/Day Years [...] Procedure Name Priority Date/Time Associated Diagnosis Comments CA HOLTER MONITOR 2-7 DAYS 09/24/2023 10:23 AM EST documented in this encounter Results * CA HOLTER MONITOR 2-7 DAYS (09/24/2023 10:23 AM EST) Anatomical Region Laterality Modality Other 09/24/2023 10:2 3 AM EST Narrative 09/26/2023 4:37 PM EST The [address] [address] Cardiology Report Signed Patient: RONNY REEVES MR#: [id number] : 1970 Acct:[id number] Age/Sex: 52 / M ADM Date: 09/10/23 Loc: CARD Attending Dr: Shaikh Mckinley Harris Ordering Physician: Shaikh Kimberly Sen Date of Service: 09/10/23 Procedure(s): CA holter montior 2-7 days Accession Number(s): [id number] cc: Shaikh Kimberly Sen [facility] Test Date: 2023-09-24 Pat Name: RONNY REEVES Department: Room: - Gender: Male Mill Tender Washing: : 1970 Requested By: SHAIKH MCKINLEY Order Number: [id number] Reading MD: JAMES MARROQUIN Interpretive Statements Predominant rhythm is sinus with average rate of 82 bpm Tachycardia - max rate of 147 bpm (PSVT) - 1 episode of PSVT w/ duration of 6 beats - longest episode of 18min 6sec with rates between 111-128 bpm Bradycardia - min rate of 51 bpm - longest episode of 5min 2sec w/ rates between 54-58 bpm Ventricular ectopy - 17 total (<1%) - 15 PVC 2 couplets Patient triggered events: 1 - not associated with symptoms - associated w/ NSR Impression: Predominant rhythm is sinus with average rate of 82 bpm Fastest rate of 147 bpm (PSVT) and slowest rate of 51 bpm 15 PVC, 2 couplets No atrial fibrillation No pauses or blocks Electronically Signed On 09-26-2023 16:36:52 EST by JAMES MARROQUIN Dictated By: James Marroquin D.O. Signed By: 09/26/23 1637 09/26/23 1637 DD/ 1023 TD/TT: Mortgage Loan Closer: Procedure Note Radiology, Radiologist, - 09/26/2023 [place] [address] Cardiology Report Signed Patient: RONNY REEVES [facility]#: [id number] : 1970Acct:[id number] Age/Sex: 52 / MADM Date: 09/10/23 Loc: CARD Attending Dr: Shaikh Mckinley Harris Ordering Physician: Shaikh Kimberly Sen Date of Service: 09/10/23 Procedure(s): CA holter montior 2-7 days Accession Number(s): [id number] cc: Shaikh Kimberly Sen The [facility] Test Date: 2023-09-24 Pat Name: RONNY REEVES Department: Room: - Gender: Male Mill Tender Washing: : 1970 Requested By: SHAIKH MCKINLEY Order Number: [id number] Reading MD: JAMES MARROQUIN Interpretive Statements Predominant rhythm is sinus with average rate of 82 bpm Tachycardia - max rate of 147 bpm (PSVT) - 1 episode of PSVT w/ duration of 6 beats - longest episode of 18min 6sec with rates between 111-128 bpm Bradycardia - min rate of 51 bpm - longest episode of 5min 2sec w/ rates between 54-58 bpm Ventricular ectopy - 17 total (<1%) - 15 PVC 2 couplets Patient triggered events: 1 - not associated with symptoms - associated w/ NSR Impression: Predominant rhythm is sinus with average rate of 82 bpm Fastest rate of 147 bpm (PSVT) and slowest rate of 51 bpm 15 PVC, 2 couplets No atrial fibrillation No pauses or blocks Electronically Signed On 09-26-2023 16:36:52 EST by JAMES MARROQUIN Dictated By: James Marroquin D.O. Signed By:09/26/23 1637 09/26/23 1637 DD/ 1023 TD/TT: Mortgage Loan Closer: us Shaikh Mckinley [facility] Final Result documented in this encounter Visit Diagnoses Not on filedocumented in this encounter Care Teams Leather Splitter Relationship Specialty Start Date End Date Shaikh Sen MD PCP - General Internal Medicine 09/14/22 10/25/23 Shaikh Sen MD [address] [place] [phone] PCP - General Internal Medicine 10/26/23 04/17/24 Carlos Sarabia MD [address] [place] [phone] PCP - General Family Medicine 04/18/24 Lakia Carcamo NP [address] [place] [address] Nurse Practitioner Family Medicine 04/18/24 Sonal Fofana DO [address] [place] [address] Referring Physician Neurology 11/15/24 documented as of this encounter
--- OUTSIDE RECORDS SUMMARY | 2025-02-10 08:22 | XMS_ITS | CCD ---
Author Organization [facility] Care Team Providers Care Watch Inspector Name Role Phone LESLY ZUNIGA Primary Care Physician [phone] TIM WEAVER Admitting Unavailable TIM WEAVER Attending Unavailable LAURARODRIGUEZ, ROWLAND H Primary Care Unavailable TIM WEAVER Consulting Unavailable HERSON MAGANA Consulting Unavailable ESTELITA ., DR DURANT Admitting Unavailable CAPONE ., DR DURANT Attending Unavailable [facility] [place] H Primary Care Unavailable CAPONE ., DR DURANT Consulting Unavailable NAYE SIMMONS Consulting Unavailable CATARINO II KURTIS Consulting Unavailable LISA BECKHAM Primary Care Physician Carleen CAPONE Attending Unavailable LESLY ZUNIGA Attending Unavailable ESTELITA, Carleen Nation Attending Unavailable ESTELITA, Carleen Nation Attending Unavailable Carleen CAPONE Admitting Unavailable Carleen CAPONE Attending Unavailable ESTELITA, Carleen Nation Attending Unavailable Carleen CAPONE Attending Unavailable Eligio Sen MDikh Primary Care Provider Robert Constantino MD Primary Care Provider [phone] Mckinley DAMON [facility] Primary Care Provider ROBERT CONSTANTINO Primary Care Unavailable DESIRAE LO Attending Unavailable AMY FARMER Attending Unavailable LAURARODRIGUEZ, [facility] Primary Care Unavailable SHAIK SENH Referring Unavailable [facility] Primary Care Unavailable LAKSHMI SOLITARIO Attending Unavailable DESIRAE LO Referring Unavailable LAURARODRIGUEZ, [facility] Primary Care Unavailable JULIANNA ROSARIO Attending Unavailable ELIGIO SENIKH Referring Unavailable [facility] Primary Care Unavailable JESSE COLLADO Admitting Unavailable COLLADO, JESSE E Attending Unavailable FAWWAD, ROWLAND Referring Unavailable FAWWAD, ROWLAND Primary Care Unavailable JULIANNA ROSARIO Attending Unavailable FAWWAD, ROWLAND Referring Unavailable FAWWAD, ROWLAND Primary Care Unavailable Carlos Sarabia MD Primary Care Provider [phone] Carcamo FLIGHT CONTROL MANAGER, Jayson Unavailable Shaikh Sen MD Primary Care Provider Carlos Alberto FLIGHT CONTROL MANAGER, Jayson Unavailable Radha Fofana DO Unavailable RADHA FOFANA Attending Unavailable CT RADHA Attending Unavailable FAWWAD, ROWLAND Attending Unavailable SMART, PACO Attending Unavailable TATTERSALL, REBECCA Attending Unavailable FAWWAD, ROWLAND Referring Unavailable TATTERSREBECCA ACEVES Attending Unavailable FAWWAD, ROWLAND Referring Unavailable REBECCA SMITH Attending Unavailable FAWWAD, ROWLAND Referring Unavailable FAWWAD, ROWLAND Attending Unavailable FAWWAD, ROWLAND Attending Unavailable BERRY PACO Attending Unavailable FAWWAD, ROWLAND Referring Unavailable FAWWAD, ROWLAND Attending Unavailable NELA MEJÍA Attending Unavailable FAWWAD, ROWLAND Referring Unavailable SMART, PACO Attending Unavailable FAWWAD, ROWLAND Referring Unavailable SMART, PACO Attending Unavailable FAWWAD, ROWLAND Referring Unavailable BERRY, PACO Attending Unavailable FAWWAD, ROWLAND Referring Unavailable SMART, PACO Attending Unavailable FAWWAD, ROWLAND Referring Unavailable MICHAEL GARCIA Attending Unavailable FAWWAD, ROWLAND Referring Unavailable CARCAMO JAYSON Attending Unavailabl e RADHA FOFANA Attending Unavailable CARCAMO, JAYSON Referring Unavailabl e CARCAMOJAYOSN Attending Unavailabl e RADHA FOFANA Attending Unavailable CARCAMOJAYSON Attending Unavailabl e Allergies Allergy Classification Reported Allergen(s) Allergy Type Date of Onset Reaction(s) Facility (1 source) No Known Medication Allergies; Translations: [No Known Medication Allergies] Propensity to adverse reactions (disorder) [facility] Repository Medications Current Medications Medication Drug Class(es) Dates Sig (Normalized) Sig (Original) [id number] 200 actuat albuterol 0.09 mg/actuat metered dose inhaler (20 sources) beta2-Adrenergic Agonist Start: 08-31-2023 End: 11-29-2023 take 2 puff(s) by inhalation every four hours for wheezing albuterol HFA 90 mcg/act inhaler Indications: Moderate persistent asthma without complication (CMS/HCC) Inhale 2 puffs every 4 (four) hours if needed for wheezing 18 g 1 08/31/2023 Active Start: 08-31-2023 take 2 puff(s) by in halation every four hours as needed albuterol (PROVENTIL HFA;VENTOLIN HFA) 90 mcg/actuation inhaler Inhale 2 puffs every 4 (four) hours as needed. 08/31/2023 Active amLODIPine 10 mg oral tablet (20 sources) Dihydropyridine Calcium Channel Lo Start: 08-31-2023 End: 06-14-2024 Amlodipine 10 mg tablet Active 10 MG PO February 03, 2024 12:00am amoxicillin 875 mg / clavulanate 125 mg oral tablet (2 sources) Penicillin-class Antibacterial Start: 05-12-2024 End: 05-22-2024 take 1 tablet by mouth in the morning amoxicillin-clavul anate (Augmentin) 875-125 MG tablet Indications: Non-recurrent acute suppurative otitis media of left ear without spontaneous rupture of tympanic membrane Take 1 tablet (875 mg) by mouth in the morning and 1 tablet (875 mg) before bedtime. Do all this for 10 days. 20 tablet 05/12/2024 05/22/2024 Active diphenhydrAMINE hydrochloride 25 mg oral capsule (4 sources) Histamine-1 Receptor Antagonist take 1 capsule by mouth every six hours as needed diphenhydrAMINE (BENADRYL) 25 mg capsule Take 1 capsule (25 mg total) by mouth every 6 (six) hours as needed for itching. Active docusate sodium 100 mg oral capsule (3 sources) Start: 02-22-2021 take 1 capsule by mouth twice daily as needed for constipation Colace 100 mg Cap 100 mg = 1 cap(s), Oral, BID, PRN for constipation, # 20 cap(s), Refills(s) 0 Start Date: 02/22/21 Status: Ordered eszopiclone 3 mg oral tablet (20 sources) Start: 06-01-2024 End: 05-14-2025 take 1 tablet by mouth at bedtime eszopiclone (Lunesta) 3 MG tablet Indications: Primary insomnia Take 1 tablet (3 mg) by mouth at bedtime 30 mins before bed 30 tablet 2 11/23/2024 02/21/2025 Active 30 actuat fluticasone furoate 0.2 mg/actuat / vilanterol 0.025 mg/actuat dry powder inhaler (1 source) Corticosteroid, beta2-Adrenergic Agonist Start: 08-31-2023 End: 02-27-2024 take 1 puff(s) by inhalation in the morning Fluticasone Furoate-Vilanterol (Breo Ellipta) 200-25 MCG/ACT aerosol powder Indications: Moderate persistent asthma without complication (CMS/HCC) Inhale 1 puff in the morning. 3 each 1 08/31/2023 02/27/2024 Active ibuprofen 800 mg oral tablet (7 sources) Nonsteroidal Anti-inflammatory Drug Start: 10-05-2023 take 1 tablet by mouth every eight hours as needed for pain ibuprofen (MOTRIN) 800 mg tablet Take 1 tablet (800 mg total) by mouth every 8 (eight) hours as needed for pain. 10/05/2023 Active Start: 10-05-2023 End: 11-04-2023 take 1 tablet [...] 01/07/2024 Discontinued (Course of therapy completed) Lactobacillus (20 sources) Start: 05-08-2024 take 1 tablet by mouth every twelve hours Lactobacillus (Acidophilus Probiotic) tablet Take 1 tablet by mouth every 12 (twelve) hours 05/08/2024 Active sildenafil 100 mg oral tablet (20 sources) Phosphodiesterase 5 Inhibitor Start: 04-12-2024 sildenafil (Viagra) 100 MG tablet TAKE 1 TABLET BY MOUTH NEEDED FOR SEXUAL ACTIVITY 30 MINUTES FOR 4 HOURS BEFORE NEEDED 04/12/2024 Active Start: 10-21-2023 End: 01-19-2024 sildenafil (Viagra) 100 MG t ablet Indications: Erectile dysfunction, unspecified erectile dysfunction type Take 1 tablet (100 mg) by mouth if needed for erectile dysfunction 30 tablet 2 10/21/2023 01/19/2024 Active tiZANidine 2 mg oral tablet (1 source) Central alpha-2 Adrenergic Agonist Start: 12-13-2024 take 1 tablet by mouth every eight hours as needed Tizanidine 2 mg tablet Active 2 MG PO Every 8 hours as needed for muscle spasticity 90 December 13, 2024 12:00am Ventolin HFA 90 mcg/inh Aerosol (3 sources) Start: 02-22-2021 Ventolin HFA 9 0 mcg/inh Aerosol Refill(s) 0 Start Date: 02/22/21 Status: Ordered Completed/Discontinued Medications Medication Drug Class(es) Dates Sig (Normalized) Sig (Original) apixaban 5 mg oral tablet (20 sources) Factor Xa Inhibitor Start: 02-06-2024 End: 06-14-2024 apixaban (Eliquis) 5 MG tablet Take 5 mg by mouth in the morning and 5 mg in the evening. Do not start before February 06, 2024. 02/06/2024 06/14/2024 Discontinued (Patient refused) Start: 02-06-2024 take 1 tablet by rod [...] 60 tablet 0 02/06/2024 Active Start: 02-03-2024 End: 12-13-2024 Apixaban (Eliquis) 5 mg tabl et Discontinued 5 MG PO February 03, 2024 12:00am December 13, 2024 2:53pm Start: 01-07-2024 End: 02-06-2024 take 2 tablets by mouth twice daily, then take 1 tablet by mouth twice daily apixaban (ELIQUIS DVT-PE TREAT 30D START) 5 mg (74 tabs) Take 2 tablets (10 mg) by mouth twice daily for 7 days. Then take 1 tablet (5 mg) by mouth twice daily for 23 days 74 tablet 0 01/07/2024 02/06/2024 Active baclofen 10 mg oral tablet (3 sources) gamma-Aminobutyric Acid-ergic Agonist Start: 02-04-2024 End: 05-12-2024 take 1 tablet by mouth in the morning, then take 1 tablet by mouth in the evening, then take 1 tablet by mouth at bedtime baclofen (Lioresal) 10 MG tablet Indications: Lumbar back pain with radiculopathy affecting lower extremity Take 1 tablet (10 mg) by mouth in the morning and 1 tablet (10 mg) in the evening and 1 tablet (10 mg) before bedtime. 90 tablet 02/04/2024 05/12/2024 Discontinued (Therapy completed) etodolac 300 mg oral capsule (3 sources) Nonsteroidal Anti-inflammatory Drug Start: 12-16-2023 End: 05-12-2024 take 1 capsule by mouth in the morning, then take 1 capsule by mouth in the evening, then take 1 capsule by mouth at bedtime etodolac (Lodine) 300 MG capsule Take 300 mg by mouth in the morning and 300 mg in the evening and 300 mg before bedtime. 12/16/2023 05/12/2024 Discontinued (Therapy completed) Fluticasone Propion-Salmeter ol (11 sources) Corticosteroid, beta2-Adrenergic Agonist Start: 02-03-2024 End: 12-13-2024 Fluticasone Propion-Salmeterol 230-21 mcg/actuation HFA aerosol inhaler Discontinued INHALATION February 03, 2024 12:00am December 13, 2024 2:53pm Start: 02-03-2024 Fluticasone Pr opion-Salmeterol Active INHALATION February 03, 2024 12:00am Start: 02-01-2024 End: 05-12-2024 take 2 puff(s) by inhalation once daily in the morning, then take 2 puff(s) by inhalation once daily at bedtime fluticasone-salmeterol (Advair) 230-21 MCG/ACT inhaler Indications: Moderate persistent asthma without complication (CMS/HCC) INHALE 2 PUFFS EVERY MORNING AND 2 PUFFS EVERY NIGHT AT BEDTIME. RINSE MOUTH AFTER USE 12 g 3 02/01/2024 05/12/2024 Discontinued (Patient refused) fluticasone-salm eterol (ADVAIR DISKUS) 100-50 mcg/dose DsDv Inhale 1 Puff as instructed as needed. 0 Active gabapentin 100 mg oral capsule (11 sources) Anti-epileptic Agent Start: 12-24-2023 End: 05-12-2024 gabapentin (Neurontin) 100 MG capsule Indications: Lumbar back pain with radiculopathy affecting lower extremity , HNP (herniated nucleus pulposus), lumbar Start with 1-3 pills at bedtime, then if tolerates well, may add 1-3 in the morning. 90 capsule 11 12/24/2023 05/12/2024 Discontinued (Therapy completed) L. RHAMNOSUS GG/INULIN (CULTURELLE PROBIOTICS ORAL) (5 sources) End: 02-01-2024 L. RHAMNOSUS GG/INULIN (CULTURELLE PROBIOTICS ORAL) Take by mouth every 48 hours. 0 02/01/2024 Discontinued L. RHAMNOSUS GG/ INULIN (CULTURELLE PROBIOTICS ORAL) Take by mouth every 48 hours. 0 Active Lactobacillus acidophilus (2 sources) Start: 04-09-2024 End: 12-13-2024 Lactobacillus acidophilus Discontinued PO April 09, 2024 12:00am December 13, 2024 2:54pm Start: 04-09-2024 Lactobacillus acidophilus Active PO April 09, 2024 12:00am mirtazapine 30 mg oral tablet (5 sources) End: 02-01-2024 take 1 tablet by mouth once daily at bedtime mirtazapine 30 mg tablet Take 30 mg by mouth daily at bedtime. 0 02/01/2024 Discontinued polyethylene glycol 3350 46385 mg powder for oral solution (5 sources) Osmotic Laxative Start: 11-16-2012 End: 02-01-2024 Polyethylene Glycol 3350 (MIRALAX) 17 gram/dose powder 1/2 capful in 8 oz of any fluid once a day. 1 Bottle 4 11/16/2012 02/01/2024 Discontinued predniSONE 10 mg oral tablet (8 sources) Start: 04-09-2024 End: 05-12-2024 predniSONE (Deltasone) 10 MG tablet As Directed 04/09/2024 05/12/2024 Discontinued (Therapy completed) Start: 04-09-2024 End: 12-13-2024 Prednisone 10 mg tablet Disc ontinued 10 MG PO As Directed 04 06April 09, 2024 12:00am December 13, 2024 2:54pm 4 tablets x 3 days, 2 tablets x 3 days, 1 tablet x 3 days Start: 12-24-2023 take 1 tablet by rod th in the morning, then take 1 tablet by mouth at bedtime predniSONE (DELTASONE) 20 mg tablet Take 1 tablet (20 mg total) by mouth in the morning and 1 tablet (20 mg total) before bedtime. 12/24/2023 Active tadalafil 10 mg oral tablet (5 sources) Phosphodiesterase 5 Inhibitor Start: 11-04-2023 End: 12-13-2024 Tadalafil 10 mg tablet Discontinued 10 MG PO April 09, 2024 12:00am December 13, 2024 2:54pm zolpidem tartrate 12.5 mg extended release oral tablet (20 sources) gamma-Aminobutyric Acid-ergic Agonist Start: 02-03-2024 Zolpidem Active MG P O February 03, 2024 12:00am Start: 01-05-2024 End: 12-13-2024 zolpidem CR (Ambien CR) 12.5 MG ER tablet Indications: Psychophysiological insomnia Take 1 tablet (12.5 mg) by mouth as needed at bedtime for sleep Do not crush, chew, or split. 30 tablet 2 04/05/2024 06/01/2024 Discontinued Start: 10-05-2023 End: 01-03-2024 take 1 tablet by mouth once daily as needed zolpidem CR (AMBIEN CR) 12.5 mg CR tablet Take 1 tablet (12.5 mg total) by mouth daily as needed. 10/05/2023 01/03/2024 Active Start: 02-22-2021 End: 02-01-2024 take 1 tablet by mouth once daily at bedtime as needed for sleep zolpidem 10 mg oral tablet 10 mg = 1 tab(s), Oral, Once a day (at bedtime), PRN for sleep, Refills(s) 0 Start Date: 02/22/21 Status: Ordered Problems Active Problems Problem Classification Problem Date Documented Da te Episodic/Chronic Abdominal pain (3 sources) Unspecified abdominal pain; Translations: [UNSPECIFIED ABDOMINAL PAIN] Onset: 3 Episodic Anxiety disorders (20 sources) Anxiety; Translations: [Anxiety disorder, unspecified] Onset: 3 02-21-2021 Chronic Asthma (20 sources) Asthma; Translations: [Unspecified asthma, uncomplicated] Onset: 3 Resolved: 3 02-21-2021 Chronic Calculus of urinary tract (8 sources) History of calculus of kidney; Translations: [Ureteric stone] Onset: 3 05-13-2021 Episodic Disorders usually diagnosed in infancy, childhood, or adolescence (2 sources) Vocal tic disorder; Translations: [Other tic disorders] 01-05-2025 Chronic Essential hypertension (20 sources) Hypertensive disorder; Translations: [Essential (primary) hypertension] Onset: 2 02-21-2021 Chronic Genitourinary symptoms and ill-defined conditions (1 source) Blood in urine; Translations: [Gross hematuria] Onset: 3 Episodic Hyperplasia of prostate (10 sources) Benign prostatic hypertrophy with outflow obstruction; Translations: [Benign prostatic hyperplasia with lower urinary tract symptoms] Onset: 3 Chronic Miscellaneous mental health disorders (11 sources) Psychophysiologic insomnia; Translations: [Psychophysiologic insomnia] Onset: 3 08-31-2023 Chronic Mood disorders (3 sources) Depressive disorder 02-21-2021 Chronic Other aftercare (1 source) Other terminal make up operator (current) drug therapy; Translations: [OTH VEHICLE SAFETY INSPECTOR CURRENT DRUG THERAPY] Onset: 3 Episodic Other [...] OBST] Onset: 3 Episodic Other gastrointestinal disorders (20 sources) Irritable bowel syndrome; Translations: [Mixed irritable bowel syndrome] Onset: 4 02-04-2024 Chronic Other gastrointestinal disorders (3 sources) Constipation 02-21-2021 Episodic Other gastrointestinal disorders (1 source) Change in stool consistency; Translations: [Other fecal abnormalities] 05-30-2024 Episodic Other male genital disorders (20 sources) Impotence; Translations: [Male erectile dysfunction, unspecified] Onset: 4 02-21-2021 Chronic Other male genital disorders (3 sources) 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 Other male genital disorders (1 source) Male erectile dysfunction, unspecified; Translations: [MALE ERECTILE DYSFUNCTION UNS] Onset: 3 Chronic Other male genital disorders (1 source) Induration penis plastica; Translations: [INDURATION PENIS PLASTICA] Onset: 3 Chronic Other nervous system disorders (2 sources) Circadian rhythm sleep disorder of shift work type; Translations: [Circadian rhythm sleep disorder, shift work type] 08-22-2024 Chronic Other screening for suspected conditions (not mental disorders or infectious disease) (2 sources) Patient encounter status; Translations: [Encounter for screening for malignant neoplasm of prostate] 12-13-2024 Episodic Residual codes; unclassified (6 sources) Hypersomnia; Translations: [Hypersomnia, unspecified] 08-22-2024 Chronic Residual codes; unclassified (2 sources) Insomnia, unspecified; Translations: [Insomnia, unspecified] Onset: 3 12-13-2024 Episodic Residual codes; unclassified (1 source) Pain, unspecified; Translations: [Pain, unspecified] Onset: Episodic Residual codes; unclassified (1 source) Family history of malignant neoplasm of pancreas; Translations: [Family history of malignant neoplasm of digestive organs] 05-30-2024 Episodic Residual codes; unclassified (6 sources) Inadequate sleep hygiene; Translations: [Inadequate sleep hygiene] 08-22-2024 Episodic Spondylosis; intervertebral disc disorders; other back problems (20 sources) Degeneration of lumbar intervertebral disc; Translations: [Other intervertebral disc degeneration, lumbar region] Onset: 01-07-2024 Chronic Unclassified (1 source) Lumbar disc disease with radiculopathy [M51.16] Onset: Past or Other Problems Problem Classification Problem Date Documented Da te Episodic/Chronic Cardiac dysrhythmias (20 sources) Intermittent palpitations; Translations: [Palpitations] Onset: 08-31-2023 08-31-2023 Episodic Mood disorders (20 sources) Mood disorders; Translations: [DEPRESSION UNSPECIFIED] Onset: 11-04-2023 Resolved: 05-12-2024 05-12-2024 Nonspecific chest pain (20 sources) Chest pain; Translations: [Other chest pain] Onset: 08-31-2023 08-31-2023 Episodic Other diseases of kidney and ureters (8 sources) Hydronephrosis; Translations: [Unspecified hydronephrosis] Onset: 12-29-2023 11-19-2022 Episodic Other gastrointestinal disorders (13 sources) Occult blood in stools; Translations: [Other fecal abnormalities] Onset: 09-20-2024 09-20-2024 Episodic Otitis media and related conditions (2 sources) Acute suppurative otitis media without spontaneous rupture of ear drum; Translations: [Acute suppurative otitis media without spontaneous rupture of ear drum, left ear] 05-12-2024 Episodic Phlebitis; thrombophlebitis and thromboembolism (20 sources) Deep venous thrombosis; Translations: [Acute embolism and thrombosis of unspecified deep veins of unspecified lower extremity] Onset: 01-07-2024 01-07-2024 Episodic Residual codes; unclassified (20 sources) Insomnia; Translations: [Insomnia, unspecified] Onset: 08-31-2023 02-21-2021 Episodic Residual codes; unclassified (20 sources) Alcoholism; Translations: [Alcohol use disorder] Onset: 08-31-2023 08-31-2023 Episodic Residual codes; unclassified (2 sources) Disturbance in sleep behavior; Translations: [Sleep disorder, unspecified] 06-01-2024 Episodic Residual codes; unclassified (2 sources) Other specified conditions influencing health status; Translations: [Alcohol use disorder] Onset: 08-31-2023 08-31-2023 Episodic Spondylosis; intervertebral disc disorders; other back problems (20 sources) Acute low back pain; Translations: [Acute bilateral low back pain without sciatica] Onset: 10-05-2023 10-05-2023 Episodic Results Test Name Value Interpretation Reference Range Facility ALL CBC WITH AUTO DIFFon BASOPHILS ABSOLUTE AUTO 0.1 [facility] Basophils/100 WBC (Bld) 1.1 % 0.2 - 2.0 % [facility] Eosinophils/100 WBC (Bld) 2 % 0.9 - 7.0 % [facility] Erythrocyte distribution width (RBC) [Ratio] 11.9 % 11.0 - 15.0 % [facility] Hematocrit (Bld) [Volume fraction] 45.9 % 42.0 - 54.0 % [facility] Hemoglobin (Bld) [Mass/Vol] 15.9 g/dL 14.0 - 18.0 g/dL [facility] IMMATURE GRANULOCYTES ABS AUTO 0.01 [facility] Immature granulocytes/100 WBC (Bld) 0.1 % 0.0 - 0.5 % [facility] Interpretation and review of laboratory results Abnormal [facility] LYMPHOCYTES ABSOLUTE AUTO 3.5 [facility] Lymphocytes/100 WBC (Bld) 47.4 % 20.5 - 60.0 % [facility] MCH (RBC) [Entitic mass] 33.2 pg 25.9 - 34.0 pg [facility] MCHC (RBC) [Mass/Vol] 34.6 g/dL 29.9 - 35.2 g/dL [facility] MCV (RBC) [Entitic vol] 95.8 fL High 80.0 - 94.0 fL [facility] MONOCYTES ABSOLUTE AUTO 0.5 [facility] Monocytes/100 WBC (Bld) 7.3 % 1.7 - 12.0 % [facility] NEUTROPHILS ABSOLUTE AUTO 3.1 [facility] Neutrophils/100 WBC (Bld) 42.1 % Low 43.0 - 75.0 % [facility] Platelet mean volume (Bld) [Entitic vol] 9.2 fL Low 9.5 - 13.5 fL [facility] EO # 0.2 [facility] 4.79 [facility] WBC 7.4 [facility] ALL CBC WITH AUTO DIFFon BASOPHILS ABSOLUTE AUTO 0.0 [facility] Basophils/100 WBC (Bld) 0.6 % 0.2 - 2.0 % [facility] Eosinophils/100 WBC (Bld) 0.9 % 0.9 - 7.0 % [facility] Erythrocyte distribution width (RBC) [Ratio] 12.3 % 11.0 - 15.0 % [facility] Hematocrit (Bld) [Volume fraction] 44.4 % 42.0 - 54.0 % [facility] Hemoglobin (Bld) [Mass/Vol] 15.4 g/dL 14.0 - 18.0 g/dL [facility] IMMATURE GRANULOCYTES ABS AUTO 0.01 [facility] Immature granulocytes/100 WBC (Bld) 0.1 % 0.0 - 0.5 % [facility] LYMPHOCYTES ABSOLUTE AUTO 3.1 [facility] Lymphocytes/100 WBC (Bld) 44.0 % 20.5 - 60.0 % [facility] MCH (RBC) [Entitic mass] 32.2 pg 25.9 - 34.0 pg [facility] MCHC (RBC) [Mass/Vol] 34.7 g/dL 29.9 - 35.2 g/dL [facility] MCV (RBC) [Entitic vol] 92.7 fL 80.0 - 94.0 fL [facility] MONOCYTES ABSOLUTE AUTO 0.5 [facility] Monocytes/100 WBC (Bld) 7.2 % 1.7 - 12.0 % [facility] NEUTROPHILS ABSOLUTE AUTO 3.3 [facility] Neutrophils/100 WBC (Bld) 47.2 % 43.0 - 75.0 % [facility] Platelet mean volume (Bld) [Entitic vol] 9.8 fL 9.5 - 13.5 fL [facility] EO # 0.1 [facility] RBC 4.79 [facility] WBC 7.0 [facility] CNOVon 02-01-2024 CNOV Office Visit (SPSLU ) RONNY REEVES ([id number]) 1970 M Date Time Provider Department 02/01/24 2:20 PM LAKSHMI SOLITARIO [facility] During your visit today, we recorded the following information about you: Weight Height 65 kg 1.651 m Lakshmi Solitario MD 02/01/2024 4:17 PM Signed SPINE SURGERY [...] BICEPS TRICEPS DELTS Wrist Ext Wrist Flex Gyn Physician HI R 5 5 5 5 5 5 5 L 5 5 5 5 5 5 5 Sensation to light touch intact to bilateral upper extremities +2 radial pulse Right: Triceps, Biceps, Brachial normoreflexic Left: Triceps, Biceps, Brachial (more content not included)... Normal [facility] CBC W Auto Differential pane l (Bld)on 01-07-2024 Basophils (Bld) [#/Vol] 0.06 10*3/uL Normal <0.11 [facility] Comment on above: Order Comment: Speci men Type: BLOOD SPECIMEN Ordering Facility: [facility] Address: [address] [place] [address] Performed By: #### [id number] #### [facility] CLIA [id number] [place] [address] [place] Basophils/100 WBC (Bld) 0.7 % Normal [facility] Comment on above: Order Comment: Speci men Type: BLOOD SPECIMEN Ordering Facility: [facility] Address: [address] [place] [address] Performed By: #### [id number] #### [facility] CLIA [id number] [facility]. TALKING [place] [address] [place] Differential cell count method Nom (Bld) Auto Normal [facility] Comment on above: Order Comment: Speci men Type: BLOOD SPECIMEN Ordering Facility: [facility] Address: [address] [place] [address] Performed By: #### 3 4528-0 #### [facility] CLIA [id number] [address] [place] [address] [place] Eosinophils (Bld) [#/Vol] 0.20 10*3/uL Normal <0.46 [facility] Comment on above: Order Comment: Speci men Type: BLOOD SPECIMEN Ordering Facility: [facility] Address: [address] [place] [address] Performed By: #### 3 4528-0 #### [facility] CLIA [id number] [address] [place] [address] [place] Eosinophils/100 WBC (Bld) 2.3 % Normal [facility] Comment on above: Order Comment: Speci men Type: BLOOD SPECIMEN Ordering Facility: [facility] Address: [address] [place] [address] Performed By: #### 3 4528-0 #### [facility] IA [id number] [address] [place] [address] [place] Erythrocyte distribution width (RBC) [Ratio] 11.9 % Normal 11.5-15.0 [facility] Comment on above: Order Comment: Speci men Type: BLOOD SPECIMEN Ordering Facility: [facility] Address: [address] [place] [address] Performed By: #### 3 4528-0 #### [facility] IA [id number] [address] [place] [address] [place] Hematocrit (Bld) [Volume fraction] 45.0 % Normal 39.0-51.0 [facility] Comment on above: Order Comment: Speci men Type: BLOOD SPECIMEN Ordering Facility: [facility] Address: [address] [place] [address] Performed By: #### 3 4528-0 #### [facility] IA [id number] [address] [place] [address] [place] Hemoglobin (Bld) [Mass/Vol] 15.5 g/dL Normal 13.0-17.0 [facility] Comment on above: Order Comment: Speci men Type: BLOOD SPECIMEN Ordering Facility: [facility] Address: [address] [place] [address] Performed By: #### 3 4528-0 #### [facility] CLIA [id number] [address] [place] [address] [place] Immature granulocytes (Bld) [#/Vol] 0.16 10*3/uL High <0.10 [facility] Comment on above: Order Comment: Speci men Type: BLOOD SPECIMEN Ordering Facility: [facility] Address: [address] [place] [address] Performed By: #### 3 4528-0 #### [facility] IA [id number] [address] [place] Immature granulocytes/100 WBC (Bld) 1.8 % Normal [facility] Comment on above: Order Comment: Speci men Type: BLOOD SPECIMEN Ordering Facility: [facility] Address: [address] [place] [address] Performed By: #### 3 4528-0 #### [facility] IA [id number] [address] [place] [address] [place] Lymphocytes (Bld) [#/Vol] 2.20 10*3/uL Normal 1.00-4.00 [facility] Comment on above: Order Comment: Speci men Type: BLOOD SPECIMEN Ordering Facility: [facility] Address: [address] [place] [address] Performed By: #### 3 4528-0 #### [facility] IA [id number] [address] [place] Lymphocytes/100 WBC (Bld) 25.3 % Normal [facility] Comment on above: Order Comment: Speci men Type: BLOOD SPECIMEN Ordering Facility: [facility] Address: [address] [place] [address] Performed By: #### 3 4528-0 #### [facility] [id number] [address] [place] [address] [place] MCH (RBC) [Entitic mass] 33.0 pg Normal 26.0-34.0 [facility] Comment on above: Order Comment: Speci men Type: BLOOD SPECIMEN Ordering Facility: [facility] Address: [address] [place] [address] Performed By: #### 3 4528-0 #### [facility] IA [id number] [address] [place] [address] [place] MCHC (RBC) [Mass/Vol] 34.4 g/dL Normal 30.5-36.0 [facility] Comment on above: Order Comment: Speci men Type: BLOOD SPECIMEN Ordering Facility: [facility] Address: [address] [place] [address] Performed By: #### 3 4528-0 #### [facility] IA [id number] [address] [place] [address] [place] MCV (RBC) [Entitic vol] 95.7 fL Normal 80.0-100.0 [facility] Comment on above: Order Comment: Speci men Type: BLOOD SPECIMEN Ordering Facility: [facility] Address: [address] [place] [address] Performed By: #### 3 4528-0 #### [facility] IA [id number] [place] [address] [place] Monocytes (Bld) [#/Vol] 0.70 10*3/uL Normal <0.87 [facility] Comment on above: Order Comment: Speci men Type: BLOOD SPECIMEN Ordering Facility: [facility] Address: [address] [place] [address] Performed By: #### 3 4528-0 #### [facility] IA [id number] [address] [place] [address] [place] Monocytes/100 WBC (Bld) 8.1 % Normal [facility] Comment on above: Order Comment: Speci men Type: BLOOD SPECIMEN Ordering Facility: [facility] Address: [address] [place] [address] Performed By: #### 3 4528-0 #### [facility] IA [id number] [address] [place] [address] [place] Neutrophils (Bld) [#/Vol] 5.36 10*3/uL Normal 1.45-7.50 [facility] Comment on above: Order Comment: Speci men Type: BLOOD SPECIMEN Ordering Facility: [facility] Address: [address] [place] [address] Performed By: #### 3 4528-0 #### [facility] IA [id number] [address] [place] [address] [place] Neutrophils/100 WBC (Bld) 61.8 % Normal [facility] Comment on above: Order Comment: Speci men Type: BLOOD SPECIMEN Ordering Facility: [facility] Address: [address] [place] [address] Performed By: #### 3 4528-0 #### [facility] CLIA [id number] [address] [place] [address] [place] Nucleated RBC (Bld) [#/Vol] 10*3/uL Normal <0.01 [facility] Comment on above: Order Comment: Speci men Type: BLOOD SPECIMEN Ordering Facility: [facility] Address: [address] [place] [address] Performed By: #### 3 4528-0 #### [facility] IA [id number] [address] [place] [address] [place] Nucleated RBC/100 WBC (Bld) [Ratio] 0.0 /100 WBC Normal [facility] Comment on above: Order Comment: Speci men Type: BLOOD SPECIMEN Ordering Facility: [facility] Address: [address] [place] [address] Performed By: #### 3 4528-0 #### [facility] CLIA [id number] [address] [place] [address] [place] Platelet mean volume (Bld) [Entitic vol] 9.3 fL Normal 9.0-12.7 [facility] Comment on above: Order Comment: Speci men Type: BLOOD SPECIMEN Ordering Facility: [facility] Address: [address] [place] [address] Performed By: #### 3 4528-0 #### [facility] CLIA [id number] [address] [place] [address] [place] Platelets (Bld) [#/Vol] 251 10*3/uL Normal 150-400 [facility] Comment on above: Order Comment: Keith mckeon Type: BLOOD SPECIMEN Ordering Facility: [facility] Address: [address] [place] [address] Performed By: #### 3 4528-0 #### [facility] CLIA [id number] [address] [place] [address] [place] RBC (Bld) [#/Vol] 4.70 10*6/uL Normal 4.20-6.00 [facility] Comment on above: Order Comment: Montyi men Type: BLOOD SPECIMEN Ordering Facility: [facility] Address: [address] [place] [address] Performed By: #### 3 4528-0 #### [facility] CLIA [id number] [address] [place] [address] [place] WBC (Bld) [#/Vol] 8.68 10*3/uL Normal 3.70-11.00 [facility] Comment on above: Order Comment: Speci mike Type: BLOOD SPECIMEN Ordering Facility: [facility] Address: [address] [place] [address] Performed By: #### 3 4528-0 #### [facility] CLIA [id number] [address] [place] [address] [place] CNOVon 01-07-2024 [facility] RONNY REEVES ([id number]) 1970 M Date Time Provider Department 01/07/24 8:00 AM DESIRAE LO [facility] During your visit today, we recorded the following information about you: Desirae Lo APRN.DIRECTOR OF CARDIOLOGY 01/07/2024 9:02 AM Signed Spine [facility] Path [...] pain to the left leg. Works at [employer] Nonsmoker ETOH - twisted tea's drinking 3 [...] Oxycodone HCL 12/07/2023 Physical Therapy: TAMARA in [facility] - attended twice - discontinued by PCP due to patient's pain Treating Physicians: Dr. Constantino - PCP Hedy Hughes CNP - [facility] Julianna Rosario CNP- [facility] Pain management - left L3,L4 TFESI ordered - scheduled for 01/15/2024 Dr. Collado - Pain management - [facility] health care Dr. Sen - [facility] Health Care History of Spine [...] days 2 (more content not included)... [facility]) LEANDRORONNY Rosita ([id number]) 1970 M Date Time Provider Department 01/07/24 DESIRAE LO [facility] During your visit today, we recorded the following information about you: Desirae Lo APRN.DIRECTOR OF CARDIOLOGY 01/07/2024 2:00 PM Signed Returned patient's call [...] to home, he will be contacting the [facility] for follow-up. 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 Called and spoke with pharmacist at [id number] [place] [address] - [address] [facility] [phone] [place] [address]. [facility] pharmacist stated apixaban starter pack was not in stock and thus they were unable to bill insurance until medication is in stock. However, [facility] pharmacist was able to fill as tablets since the starter pack was not in stock. This [facility] provided $30-day free trial card over the phone, [facility] that this patient will have $0 copay for initial supply. This [facility] provided $10 copay card over the phone and [facility] entered this under patient's profile for future monthly dispenses so that may copay per month will be $10. This [facility] called and updated patient with $0 initial supply and $10 monthly copay after that. Patient verbalized understanding. Thank you for allowing me to participate in this patient's care. Prince Llamas luz Allergies As of Date: 01/07/2024 (No Known Allergies) Date Reviewed: 01/07/2024 Reviewed by: Porfirio Umanzor, CLAUDIO - Fully Assessed Reason for Visit: Medication [...] of left tibial*01/07/2024 Encounter Status:Closed by PRINCE LLAMAS on 01/07/24 [facility] CONSULTon 01-07-2024 CONSULT HNO ID: [id number] Author: DWAYNE DUQUE MD Service: Vascular Surgery Author Type: Physician Type: Consults Filed: 01/07/2024 12:52 Note Text: [facility] INITIAL CONSULTVascular Surgery Consult Note Service Date: 01/07/2024 Admit Date: 01/07/2024 Service Time: 12:44 PM LOS: 0 Vascular Physician: Dwayne Duque MD Subjective Chief Complaint: LLE pain and swelling HPI: Ronny Reeves is a 53 year old White male referred by Dr. Farmer for an opinion regarding management of LLE [...] Duration: ~3 days Consultation requested by Dr. Farmer for an opinion regarding THE ABOVE. My [...] DATE: January 07, 2024 TIME: 12:52 PM [facility] CONSULT HNO ID: [id number] Author: ADARSH PARRA PA-C Service: Vascular Surgery Author Type: Physician Completions Manager Type: Consults Filed: 01/07/2024 12:56 Note Text: VASCULAR SURGERY CONSULT NOTE SERVICE DATE: 01/07/2024 SERVICE TIME: 10:34 AM REASON FOR CONSULT: DVT REQUESTING PHYSICIAN: Dr. Farmer PRIMARY CARE PHYSICIAN: Shaikh Mckinley MD Subjective HISTORY OF PRESENT ILLNESS: Ronny Reeves is a 53 year old male hx lumbar disc herniation w/ low back and leg pain x1 month. Pain began after receiving hearing care practitioner. He was seen by outpatient spine clinic [...] which included preparing to see the patient, [id number] patient care, completing clinical documentation, obtaining and/or reviewing separately obtained history, and performing a medically appropriate examination. SIGNATURE: Adarsh Parra PA-C PATIENT NAME: Ronny Reeves DATE: January 07, 2024 TIME: 10:34 AM PAGER: [phone] ' Normal [facility] Comprehensive metabolic 2000 panelon 01-07-2024 Albumin [Mass/Vol] 3.8 g/dL Low 3.9-4.9 [facility] Comment on above: Order Comment: Speci men Type: BLOOD SPECIMEN Ordering Facility: [facility] Address: [address] [place] [address] Performed By: #### 2 4323-8 #### [facility] CLIA [id number] [address] [place] [address] [place] ALP [Catalytic activity/Vol] 100 U/L Normal 38-113 [facility] Comment on above: Order Comment: Speci men Type: BLOOD SPECIMEN Ordering Facility: [facility] Address: [address] [place] [address] Performed By: #### 2 4323-8 #### [facility] CLIA [id number] [address] [place] [address] [place] ALT [Catalytic activity/Vol] 22 U/L Normal 10-54 [facility] Comment on above: Order Comment: Speci men Type: BLOOD SPECIMEN Ordering Facility: [facility] Address: [address] [place] [address] Performed By: #### 2 4323-8 #### [facility] CLIA [id number] [address] [place] [address] [place] Anion gap [Moles/Vol] 11 mmol/L Normal 9-18 [facility] Comment on above: Order Comment: Speci men Type: BLOOD SPECIMEN Ordering Facility: [facility] Address: [address] [place] [address] Performed By: #### 2 4323-8 #### [facility] CLIA [id number] [address] [place] [address] [place] AST [Catalytic activity/Vol] 18 U/L Normal 14-40 [facility] Comment on above: Order Comment: Speci men Type: BLOOD SPECIMEN Ordering Facility: [facility] Address: [address] [place] [address] Performed By: #### 2 4323-8 #### [facility] IA [id number] [address] [place] [address] [place] Bilirubin [Mass/Vol] 0.5 mg/dL Normal 0.2-1.3 [facility] Comment on above: Order Comment: Speci men Type: BLOOD SPECIMEN Ordering Facility: [facility] Address: [address] [place] [address] Performed By: #### 2 4323-8 #### [facility] CLIA [id number] [address] [place] [address] [place] Calcium [Mass/Vol] 9.1 mg/dL Normal 8.5-10.2 [facility] Comment on above: Order Comment: Speci men Type: BLOOD SPECIMEN Ordering Facility: [facility] Address: [address] [place] [address] Performed By: #### 2 4323-8 #### [facility] IA [id number] [address] [place] [address] [place] Chloride [Moles/Vol] 101 mmol/L Normal 97-105 [facility] Comment on above: Order Comment: Speci men Type: BLOOD SPECIMEN Ordering Facility: [facility] Address: [address] [place] [address] Performed By: #### 2 4323-8 #### [facility] CLIA [id number] [address] [place] [address] [place] CO2 [Moles/Vol] 26 mmol/L Normal 22-30 [facility] Comment on above: Order Comment: Speci men Type: BLOOD SPECIMEN Ordering Facility: [facility] Address: [address] [place] [address] Performed By: #### 2 4323-8 #### [facility] CLIA [id number] [address] [place] [address] [place] Creatinine [Mass/Vol] 1.02 mg/dL Normal 0.73-1.22 [facility] Comment on above: Order Comment: Keith mckeon Type: BLOOD SPECIMEN Ordering Facility: [facility] Address: [address] [place] [address] Performed By: #### 2 4323-8 #### [facility] CLIA [id number] [address] [facility] [place] [address] [place] Creatinine and Glomerular filtration rate.predicted panel (S/P/Bld) 87 mL/min/1.73m??? Normal >=60 [facility] Comment on above: Order Comment: Keith mckeon Type: BLOOD SPECIMEN Ordering Facility: [facility] Address: [address] [place] [address] Result Comment: Jeri mated Glomerular Filtration Rate [...] GFR. Performed By: #### 2 4323-8 #### [facility] CLIA [id number] [address] [facility] [place] [address] [place] Glucose [Mass/Vol] 84 mg/dL Normal 74-99 [facility] Comment on above: Order Comment: Keith mckeon Type: BLOOD SPECIMEN Ordering Facility: [facility] Address: [address] [place] [address] Result Comment: The [place] Diabetes Association (ADA) provides guidance for cutoff [...] Standards of Medical Care in Diabetes 2016, [place] [employer]. Diabetes Care. 2016.39(Suppl 1). Performed By: #### 2 4323-8 #### [facility] IA [id number] [address] [place] [address] [place] Potassium [Moles/Vol] 3.7 mmol/L Normal 3.7-5.1 [facility] Comment on above: Order Comment: Speci men Type: BLOOD SPECIMEN Ordering Facility: [facility] Address: [address] [place] [address] Performed By: #### 2 4323-8 #### [facility] IA [id number] [address] [place] [address] [place] Protein [Mass/Vol] 6.4 g/dL Normal 6.3-8.0 [facility] Comment on above: Order Comment: Speci men Type: BLOOD SPECIMEN Ordering Facility: [facility] Address: [address] [place] [address] Performed By: #### 2 4323-8 #### [facility] IA [id number] [address] [place] [address] [place] Sodium [Moles/Vol] 138 mmol/L Normal 136-144 [facility] Comment on above: Order Comment: Speci men Type: BLOOD SPECIMEN Ordering Facility: [facility] Address: [address] [place] [address] Performed By: #### 2 4323-8 #### [facility] IA [id number] [address] [place] [address] [place] Urea nitrogen [Mass/Vol] 14 mg/dL Normal 9-24 [facility] Comment on above: Order Comment: Speci men Type: BLOOD SPECIMEN Ordering Facility: [facility] Address: [address] [place] [address] Performed By: #### 2 4323-8 #### [facility] IA [id number] [address] [place] [address] [place] ED NOTEon 01-07-2024 ED NOTE HNO ID: [id number] Author: QIANA ALEJANDRA RN Service: Emergency Medicine Author Type: Registered Nurse Type: ED Notes Filed: 01/07/2024 13:25 Note Text: Discharge paperwork, follow up appointments/care, prescriptions discussed with patient. No questions at this time. Peripheral IV removed prior to discharge. Patient taken out of department at time of discharge. [facility] ED NOTE HNO ID: [id number] Author: QIANA ALEJANDRA RN Service: Emergency Medicine Author Type: Registered Nurse Type: ED Notes Filed: 01/07/2024 12:49 Note Text: Pharmacy at bedside. [facility] ED NOTE HNO ID: [id number] Author: QIANA ALEJANDRA RN Service: Emergency Medicine Author Type: Registered Nurse Type: ED Notes Filed: 01/07/2024 10:55 Note Text: US at bedside. [facility] ED PROV NOTEon 01-07-2024 ED PROV NOTE HNO ID: [id number] Author: AMY FARMER DO Service: Emergency Medicine Author Type: Physician [...] Management Management of the patient was discussed with:bridal consultant and pharmacist Discussion with bridal consultant included: Vascular surgery Discussion with pharmacist included: ED pharmacist Radiology Repor (more content not included)... [facility] PT EDon 01-07-2024 PT ED HNO ID: [id number] Author: PRINCE LLAMAS RPh Service: Pharmacy Author Type: Pharmacist Type: [...] potential adverse drug reactions, and interactions. Prince Llamas [facility] Normal [facility] PT panel Coag (PPP)on 2023 INR Coag (PPP) [Relative time] 1.0 {INR} Normal 0.9-1.3 [facility] Comment on above: Order Comment: Keith mckeon Type: BLOOD SPECIMEN Ordering Facility: [facility] Address: [address] [place] [address] Result Comment: Marcia min K Antagonist (VKA) Therapeutic Range: INR 2 to 3 (Target INR of 2.5) Note: For patients treated with VKA drugs, such as warfarin, the [place] [employer] 2012 Guideline recommends [...] GH, et al. Chest 2012, 141:7S-47S Gia RA, et al. [facility] 2017, 70: 252-289 Performed By: #### 3 4528-0 #### [facility] CLIA [id number] [address] [facility] [place] [address] [place] PT Coag (PPP) [Time] 10.9 s Normal 9.7-13.0 [facility] Comment on above: Order Comment: Keith mckeon Type: BLOOD SPECIMEN Ordering Facility: [facility] Address: [address] [place] [address] Performed By: #### 3 4528-0 #### [facility] CLIA [id number] [address] [facility] [place] [address] [facility] US DVT LOWER LTon 01-07-2024 US DVT LOWER LT * * *Final Report* * * DATE OF EXAM: Jan 07 2024 11:32AM U 1006 - US DVT LOWER LT / [...] IMAGED SEGMENTS OF THE LEFT LOWER EXTREMITY. Negative Checker: PSCB Transcribe Date/Time: Jan 07 2024 11:37A Dictated by : JESUS AMARO MD This examination was interpreted and the report reviewed and electronically signed by: JESUS AMARO MD on Jan 07 2024 11:52AM EST [id number] Normal [facility] US LEG ARTERIAL PERIPH UNL V LABon 01-07-2024 US LEG ARTERIAL PERIPH UNL VAS LAB Non-Invasive Vascular Laboratory [facility] Lower Extremity Arterial Duplex Unilateral - Left [...] Technologist: Robert Nieto Marylu Ordering physician: AMY FARMER Referring physician: AMY FARMER DO Interpreting physician: Chicho Parra MD, MEREDITH Final CC [facility] Image : [id number] SUID See Link below for Image Normal [facility] JOSEFARONNY ALBRECHT ([id number]) 1970 M Date Time Provider Department 01/04/24 DESIRAE LO 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 RHAMNOSUS [...] Status:Closed by DESIRAE LO on 01/04/24 Normal [place] Operative Reporton Operative Report [id number] D:[address] [facility] Coding Summary.on 12-04-2022 Coding Summary. CD:[id number] Ww+ PGhlYWQ+JA7BSHPiA23szCW veO6bC5HHUNxZEgtcSIPZNY bAUfNdebEbBZ9amTBdLOCq IC8+YE1oBZOtIoytcCZui6C 0kHP2U68xdh5nCCvktDF9WB JeYwZhsstcs4sqnCb9AQpnP mluOyBt JDZszO59PSE0eX51Th06oNP beATde1cbvPo0VqKcFGXkWQ J4oEejKYgxt3HgURCkH26be OWke9X1 IVQxdTwcjLLyMvJflII0uN8 wERrwhxlik0etdvmmGkt6xt 72eTOyl5B9xOS4H1WwqnU4K GJvbGQg TjwwbRDLeC2acylix4cbocu sYuQyTOQjFIg2EDi6OKOomS orBfUmNE26QVE2ZXPdbgEkX 2FsLWFs bZumRzP7g7I7Il6GL0XIPdq yE7KRFVTZHCikfHF+PC90cj 07R4UsFumdFvz4NRFpGYN8a KQ2gH7e VHUtNSzlo6I2qUF8W5LljaA fuc9ts5tmCSHsBUiiO19mnC Ufh3U2NHVhrBU0CZEeaCtkK iBzaG93 Oyc+RITujOtbt0XuJbbxp8q ww8eaaXi1UtrqWWKfvzFirG fdEYG9i3ReAf4fWGPuiAD4h LG3vZ0s ZvGoXyC5TKnvT170DzMgqYG bKucoU03oX7GkoOI+PHRyPj r9EXNakWbzWJ9uZ1ZrIBYpy mctbGVm iZxwXN0kPFCawhamKUYtjV6 cKPJrH3a0OuZbQcD5UWjpR9 LbDTVmydlcYc97aL1lPvOvM oM4RUss K5CyxzS5ADXdaULoVHwuGEV 6R00gz9X9OFEaFVLpODB7eJ E5dU6haPritafdgOFrtTmjl mVydGlj ILyhNSkkS603CBHdaXovEaI vZGluZyBEYXRlOiAgMDMvMj MvMjAyMzwvdGQ+PVJdLEI9k WxlPSAn aJNaACxeCv7zqZrhpPkrVU8 vTLVzjuwoDTCwaZ2kVGXoxG FbdGfuHV4bICGpzqzac565F iAxMHB0 NTYpyYHbI3FrcM4zPoFeFNS xWAVrZ1GvuOZvSMpmK283XM ocWtZ4QLJjaxDsK3FsSLIad WduOiB0 m0B1Km5Kp6SfapnmZ0OytTK iSoFgZwogRXp0Q9TxHiegjI I+FG75FUKiAM66TZa9VFE2z WxlPSdi AQMuW3SwhR9tRxUbDMFtJIC kOyc+PHRhYmxlIHdpZHRoPS zfBIZiAvOksUedQU9gUq9dA GVyLWNv mKpnrUUeTxAyh9vbFYMfBZi pBD8neLlcU3RjoNA3LROgh5 f2Wa74F06jQ0UsgZE+PGNvb YA5eHY6 qE7hQnTaJyW6WQadA859VfM dgKVwMvkql3ubw3pekUb6Eb A8NXLrzsTacGaxIVR3a6DcS h75X45i IHdpZHRoPSIxNSUiIHZhbGl kna9hxP7pTs5+JMOjgHU0lI B6aE8fTsCkGnA9AMynY965M nRvcCIv Igvjb8oab8rywLp2SyPbFOR efjSeyRguHFJ0o7CsIw76A2 UauBezm7OnKtb7xg46xETnq 1D6zLY8 L5CnMKNwjbkvyIFrvPxjWU0 wVPNpfxsaRBTlzY6wWPZzH2 q8UuBaRbE9PSeiZ7YgopQ4A GJvbGQg DFShgKLRnJ7kjzrdf6wrkfj fTzXeSXBhLCs4VKs1FVJgcI jbIbKaDVV2FxM9YIO2bMLzo W8ufQku woosxD1wAur+ORV5iRJljDC MPG7tBzvsoGN+QGGmOUT6rY ozUJyvFSYgmQ4tJMDdG4h8U iAwLjA1 CZmwC3XqalP5EZSlhHVdSZM zgNYBgY8omvjiz9bniwskUj DrZORjCLj8UPw4UQDdkMioX iBsZWZ0 VnM5UCZ8oBWsrL4gtDnzdzw guV9vVgg+ExgjlCcsKIO9SL b7O9NzLwg8VKVncHbeYS7cz GFkZGlu Jm6smKvetDmlWF1jHINhous ix969XmEsr8auSQVpvNXxXR ctPYP3F83vs9D5MVEvCGKzL OD8bVX9 yA9rhAlsjdltoGYqgGohfsH edYabBCxlRRyiQ958YMAatB jfDuLeZGe1H5MdVte4ULFoj MkdTU6b hSFbUTtgYr4enHejjYdhTP1 uALKkwtnoc502HrAlv7xfUK TuvPKgHTebACZ1P11uz1B6C CMwMDAw GLG5aRT0eE2lnSapfaiggEZ mdDsgdmVydGljYWwtYWxpZ2 04VCMveVibOfNvbEt5S0CcQ ll3NPXx aEnqAX8ejDLcMNyaYx9mwCn eyAfcUI1iPCYfmfnrv090Ar Kzh8zmWYQddMEmZNpqIEP6I 09ou1H9 SWOaCAXhPME3lHR7nX7vrPj nbjogbGVmdDsgdmVydGljYW mmEFedL434ZUVkyJjiBfDzy GllbnQg FVefTQj2N5UvJazipOL+PC9 0MKIgYO20tOUjdFMvd1qyiM d2WwHeGTTgYZG5jKsmFYuwd 3JkZXIt J88exHNqq7E2AEOnhUruuYS cOqDyiKV6wK2uAXqyqplwn9 qamiotZnzes0guca62oS33U 29sIHdp ZHRoPSIzMCUiIHZhbGlnbj0 pgU2xBq0+ZUZcqBC8cZE4aQ 7uQIPbKaP1UAoaE017SuQzn CIvPjxj x2rtz7mxgEo5ExF8ZRUmqjG lzHtsZUY1n8BuZn37A68uRD dpZHRoPSIyMCUiIHZhbGlnb s5peH1w Ii8+TKUhzRP8sAH5sE9oIqT jQcW9LOozL306SwAwrRJaTn tuS95wW3YiaJT+HLYgLoo2S CBzdHls FI4xlMVzQYnuEl4rMEC7KuI wMlKpIFkgS6NqASRlfbvrrt attVR0OCLcWQLxoS49Tk1ma DogMTBw uGLYfW9wuulqb4hyufzfPqK kLMPbVMi1SUc7SFBxiNjrQg JyBFE8HyH0TVX3aDLvaD1xp Glnbjog mR1rG8CmKDRcqflrUi08yC7 iDwJjSgJ8PRsuYtd+VkFMTE VLL9FhUEtNVOHKZN57NN02a GKjo5D7 dLP6G0GiDEGphxjhrnnpiBO 3ULKcQVMmyZ53bLIgGDxxQi 8tp9Q2d496XNFlOKOvhG67M a2cfFku CSXvwYXUrX4cizexx9frggv yBrQlGKSaPCb1ITf6JVMztW gtYyXdZGN6PeV7VWM1vZUgx I1jwXrb vhlgbQ2aQoo+MDMvMTAvMTk 2OTwvdGQ+YRDgLVQ3eUcnVC dkBVFscD9nJXSjE8b1KsJhX vW1YVuz Y7IxXPEkcvhnRo28hB0bJuQ gTrQ7DBloT5AhzeE0OONtwY VvEOfmBOH2V50yx1Q4CEQxS DAwMDA7 qNS8cW2knTaaifvdiJNjpSn nwlYcqTjiARelAMksS201PS IdrFqpQnK6PBhjKXXjXA02F O37qNVc l2E7gKY7C8SxAEKeskvjfwj wdEL6JHUqXILnrJ22iJUyZG sqHl0xo0H2u915KHItMWRuo B36Op0z xWgtUHIrlCMCqO9kjeegs8x ulwuxCvFuQFGiDQx2FOv8ME YmxPglVvFvLXR5AiZ7WNH8a QOwiY1t fZplkzmlwG9uQup+TWFsZTw vdGQ+NDJnDXT6qDltZKtzWA PwtJ8kJZWwI1l6GgGeFaC1M OoiH6Ho IHEjikdsZm50wB2aIcPuTpB 7QMwaU6UjkuI8HXGhnNCgKV kpREL7E63en3T0QPUhPMDuB BC1qMT8 kE4hfHgflhblxQQlgDtblsB crAwjTHvqVCiiW833FGTttF jjSdtvQpHCsg2aZF2vEsdxf GQ+PC90 hr07B0ZxMvxoLdm1WOXaFJE 1tOJ3dG4qPSUrAMfdr2A7eH U0W3UizfGtzs9bn3joZXQqH BifO94z hUXrk3Y0QGMebPO7UXNnwGc vLqGgpF71Vpa+PGNvbGdyb3 IzFvmyf7ivu9gciYr7NpEgP SIgdmFs qSfhBXE3b5QuOl72Z92aUAy pZHRoPSIzMCUiIHZhbGlnbj 2mpZ5oSo8+YYJqbKB8oET2r E3iBlUg EdG5IRvmN561KrCnkXWmMdy pv0vxv5cpwHz2PnSkTLWhfr FefZngAPM8g6HmFp21J8Pnv Yzcu2Rt Cha8ly49tAZfn6Z9tRK0B9D uUESjdpbaoTCllSgbNA1pFI PfpuvaIICqfW4iTOIoQ2r4S iAwLjA1 BKfjV3ZkapG7XOUseYYiMPF lqBIDqF1flxnlx4lhqjvhLj FnDKGxEZp9HJu8LPJryLqfX iBsZWZ0 NpO6XPK8yKKdvS3usLlobfr btR1wOww+OSp3k6bqhUOyWI 4wmDE2TS49LP22qENwa6K4a VB6W9Gv USCyctiqgmdzyLC5FHKhUVW ovT39Fo9kwLhpXe6pRWBrCM X5YQFanMKgT2NnkG3cSdBqJ DAwMDAw Q1FsnLFcUDumW036LJevIdA 1ZJJgkvRkF4IzJNUlfMffMu S3v0L1Wp5FWJ01MI17ID34l WCkg6S4 hPN3C0RqKRZrzjrxamfaaSU 5MRGtTKLfmX54Dc0qbMagPn 4eONBsTNG5XTCesJTsD4Sna M3fKaQd TSMdLKKzY0IjiXKcWEgxN56 5NCitNnQ1MWLikvDbA3CrJM JzhIzaEoH1o8M5An5XKu52I H70UM61 xNEnu8T8fDI5G6AzMFXjsvk lxtpltKQ5PDRzNHDaiY14Es 1ykPdrBj3eLDNlWWY5NXJpg IMiW3Ws qN4xPkTnYGVuAXVpI2JbqTN tNOkrU234MYxaBcR5XGBtpc JxV4GsFGLdeIgbZtX8m2B3Q o8KHDsn ezp9H9OzUjgmkZM+EK64BFX dLI94rFLctJAlf5frhSo8Xc AjFXGmYUE7cOuvTIfry3TwI GSdQ01j bREda2B5 (more content not included)... Normal [facility] Consent for Procedure/Surger yon 12-03-2022 Consent for Procedure/Surgery [id number] :[address] [facility] C Urineon 11-29-2022 Bacteria identified Cx Nom (U) Microbiology PROCEDURE: Urine Culture [R1] SOURCE: U Random BODY SITE: COLLECTED DATE/TIME: 11/26/2022 15:48 EDT RECEIVED DATE/TIME: 11/27/2022 11:45 EDT START DATE/TIME: 11/27/2022 11:45 EDT FREE TEXT SOURCE: ESTELITA DAMON, Carleen CAPONE MD, Carleen Nation FINAL REPORTS Final Report [] Verified Date/Time: 11/29/2022 07:16 EDT No growth at 2 days. Performing Locations R1: This test was performed at: [facility], [address] [place] [address], [facility] , , [facility] Comment on above: Performed By: #### 2 [id number] ####[facility] [address] [place] [address] Ambulatory Visit Summaryon 0 11-26-2022 Ambulatory Visit Summary RONNY REEVES :1970 Visit Date:11/26/2022 Ambulatory Visit Instructions Your Diagnosis Gross hematuria Tests Performed Urnls Dip Stick Auto w/o Microscopy POC [id number] Your Care Team Attending Physician - EFRAIN DAMON, LESLY Primary Care Physician - LISA BECKHAM DO This Is Your Medications List albuterol (Ventolin HFA 90 mcg/inh Aerosol) docusate (Colace 100 mg Cap) zolpidem (zolpidem 10 mg oral tablet) Procedures Performed Colonoscopy, Vasectomy. What to do next Scheduled Follow-Up Appointments Thursday 3:45 PM EDT With: ESTELITA DAMON, Carleen Nation Where: [facility] [place] Normal [facility] CALCULI, URINARYon 3 2,8 Dihydroxyadenine Normal [facility] Comment on above: Performed By: #### C ALCULI #### [facility] [address] [address] [address] Kaden James Ammonium Acid Urate Normal [facility] Comment on above: Performed By: #### C ALCULI #### [facility] [address] [address] [address] Kaden James Bilirubin Ql (U) [facility] Comment on above: Performed By: #### C ALCULI #### [facility] [address] [address] [address] Kaden James Ca Oxalate Dihydrate [facility] Comment on above: Performed By: #### C ALCULI #### [facility] [address] [address] [address] Kaden James CaHPO4 (Brushite) [facility] Comment on above: Performed By: #### C ALCULI #### [facility] [address] [address] [address] Kaden James Calcium Bilirubinate [facility] Comment on above: Performed By: #### C ALCULI #### [facility] [address] [address] [address] Kaden James Calcium Carbonate [facility] Comment on above: Performed By: #### C ALCULI #### [facility] [address] [address] [address] Kaden James Calcium Oxalate Monohydrate 100 % [facility] Comment on above: Performed By: #### C ALCULI #### [facility] [address] [address] [address] Kaden James Calcium Palmitate [facility] Comment on above: Performed By: #### C ALCULI #### [facility] [address] [address] [address] Kaden James Calcium Phosphate Normal [facility] Comment on above: Performed By: #### C ALCULI #### [facility] [address] [address] [address] Kaden James Calcium Stearate Normal [facility] Comment on above: Performed By: #### C ALCULI #### [facility] [address] [address] [address] Kaden James Carbonate Apatite Normal [facility] Comment on above: Performed By: #### C ALCULI #### [facility] [address] [address] [address] Kaden James Cellular Material [facility] Comment on above: Performed By: #### C ALCULI #### [facility] [address] [address] [address] Kaden James Cholesterol Normal [facility] Comment on above: Performed By: #### C ALCULI #### [facility] [address] [address] [address] Kaden James Color (U) Brown Normal [facility] Comment on above: Performed By: #### C ALCULI #### [facility] [address] [address] [address] Kaden James Comment [facility] Comment on above: Performed By: #### C ALCULI #### [facility] [address] [address] [address] Kaden James Comment Comment [facility] Comment on above: Result Comment: Calc ulus received wet. Wet calculi must be dried before analysis, which delays reporting of results. Leaving calculi wet (such as water, saline, blood, urine) may lead to changes in composition. Performed By: #### C ALCULI #### [facility] [address] [address] [address] Kaden James Comment: Comment Normal [facility] Comment on above: Result Comment: Phys khadijahan questions regarding Calculi Analysis contact [facility] at: [phone]. Performed By: #### C ALCULI #### [facility] [address] [place] [address] Dr. Kaden James Composition Comment [facility] Comment on above: Result Comment: Perc entage (Represents the % composition) Performed By: #### C ALCULI #### [facility] [address] [address] [address] Kaden James Cystine Normal [facility] Comment on above: Performed By: #### C ALCULI #### [facility] [address] [place] [address] Dr. Kaden James Disclaimer: Comment Normal [facility] Comment on above: Result Comment: This test was developed and its performance characteristics determined by [employer]. It has not been cleared or approved by the Food and Drug Administration. Performed By: #### C ALCULI #### [facility] [address] [place] [address] Dr. Kaden James Dried Blood Normal [facility] Comment on above: Performed By: #### C ALCULI #### [facility] [address] [place] [address] Dr. Kaden James Drug or Metabolite Normal [facility] Comment on above: Performed By: #### C ALCULI #### [facility] [address] [place] [address] Dr. Kaden James Hydroxyapatite Normal [facility] Comment on above: Performed By: #### C ALCULI #### [facility] [address] [place] [address] Dr. Kaden James Mg NH4 PO4 (Struvite) Normal [facility] Comment on above: Performed By: #### C ALCULI #### [facility] [address] [place] [address] Dr. Kaden James MgHPO4 (Newberyite) Normal [facility] Comment on above: Performed By: #### C ALCULI #### [facility] [address] [place] [address] Dr. Kaden James Other component(s) Normal [facility] Comment on above: Performed By: #### C ALCULI #### [facility] [address] [address] [address] Kaden James PDF . Normal [facility] Comment on above: Performed By: #### C ALCULI #### [facility] [address] [address] [address] Kaden James Photo Comment Normal [facility] Comment on above: Result Comment: Phot ograph will follow under a separate cover Performed By: #### C ALCULI #### [facility] [address] [address] [address] Kaden James Please note: Comment Normal [facility] Comment on above: Result Comment: Calc renetta report will follow via computer, mail or work environment safety inspector delivery. Performed By: #### C ALCULI #### [facility] [address] [address] [address] Kaden James Size 1x1 [facility] Comment on above: Result Comment: Mult iple pieces received. Dimensions of the largest piece reported. Performed By: #### C ALCULI #### [facility] [address] [address] [address] Kaden James Sodium Acid Urate Normal [facility] Comment on above: Performed By: #### C ALCULI #### [facility] [address] [address] [address] Kaden James Source Comment [facility] Comment on above: Result Comment: Righ t Ureter Performed By: #### C ALCULI #### [facility] [address] [address] [address] Kaden James Triamterene [facility] Comment on above: Performed By: #### C ALCULI #### [facility] [address] [address] [address] Kaden James Uric Acid [facility] Comment on above: Performed By: #### C ALCULI #### [facility] [address] [address] [address] Kaden James Uric Acid Dihydrate Normal [facility] Comment on above: Performed By: #### C ALCULI #### [facility] [address] [address] [address] Kaden James Weight 22 mg [facility] Comment on above: Performed By: #### C ALCULI #### [facility] [address] [address] [address] Kaden James Xanthine [facility] Comment on above: Performed By: #### C ALCULI #### [facility] [address] [id number] Kaden James Operative Reporton Operative Report [id number] D:[address] [facility] RAD - CT Reporton 11-24-2022 RAD - CT Report [id number] D:127 [facility] RAD - MISCon 11-24-2022 RAD - MISC [id number] D:127 [facility] Consent for Procedure/Surger yon 11-20-2022 Consent for Procedure/Surgery [id number] D:127 [facility] Screenson 11-20-2022 Screens [id number] D:127 [facility] Patient Educationon 11-20-19 Patient Education Urology Dietary [...] Rhubarb. ? Beets. ? Potato chips and tamazight fries. ? Nuts. ? If you regularly take a diuretic medicine, make sure to eat at least 1?2 fruits or vegetables high in potassium each day. These include: ? Avocado. ? Banana. ? [place], prune, carrot, or tomato juice. ? Baked [...] dr (more content not included)... Normal [facility] Urology Office/Clinic Noteon 11-19-2022 Urology Office/Clinic Note Chief Complaint Follow up to [facility] HPI Staff Pt is here today for follow up to [facility] due to right flank and abdominal [...] and history for this patient from Dr. Capone. I have reviewed and verified the staff [...] and ureteral calculous obstruction) Follow up to [facility] ER visit on 11/16/22 due to [...] Follow-up With When Contact Information ESTELITA DAMON, Carleen Nation, [facility] [address], [place] [address]- Additional Instructions: x-ray, schedule tentative laser litho Patient Education Dietary Guidelines to Help Prevent Kidney Stones I, Jyoti Morales, personally scribed for Dr. Capone on 11/19/2022 14:23:00. . Documentation recorded by the scribe, Jyoti Morales, accurately reflects the services(s) I performed and decisions made by me. Authenticated by Dr. Capone on 11/19/2022 14:25:50. Problem List/Past Medical History [...] (at bedti (more content not included)... Normal [facility] Comment on above: Result Comment: Elec tronically Signed By: Carleen CAPONE MD\.br\Date and Time Signed: 11/19/22 14:25 EST\.br\Electronically Co-Signed By: Jyoti Morales\.br\Date and Time Co-Signed: 11/19/22 14:24 EST ED Note-Physicianon 11-19-19 ED Note-Physician [id number] D:[address] [facility] CBC AUTO DIFFon 11-16-2022 BASO # 0.1 103/ul Normal 0.0-0.1 [facility] Comment on above: Performed By: #### C BC #### [facility] [address] [place] [address] Dr. Kaden James Basophils/100 WBC (Bld) 0.6 % Normal 0.2-2.0 [facility] Comment on above: Performed By: #### C BC #### [facility] [address] [address] [address] Kaden James EO # 0.1 103/ul Normal 0.0-0.7 [facility] Comment on above: Performed By: #### C BC #### [facility] [address] [address] [address] Kaden James Eosinophils/100 WBC (Bld) 1.4 % Normal 0.9-7.0 [facility] Comment on above: Performed By: #### C BC #### [facility] [address] [place] [address] Dr. Kaden James Erythrocyte distribution width (RBC) [Ratio] 12.2 % Normal 11.0-15.0 [facility] Comment on above: Performed By: #### C BC #### [facility] [address] [place] [address] Dr. Kaden James Hematocrit (Bld) [Volume fraction] 44.6 % Normal 42.0-54.0 [facility] Comment on above: Performed By: #### C BC #### [facility] [address] [place] [address] Dr. Kaden James Hemoglobin (Bld) [Mass/Vol] 15.5 g/dL Normal 14.0-18.0 [facility] Comment on above: Performed By: #### C BC #### [facility] [address] [place] [address] Dr. Kaden James IG # 0.03 10e3/ul Normal 0.00-0.03 [facility] Comment on above: Performed By: #### C BC #### [facility] [address] [place] [address] Dr. Kaden James IG % 0.3 % Normal 0.0-0.5 [facility] Comment on above: Performed By: #### C BC #### [facility] [address] [place] [address] Dr. Kaden James LYMPH # 2.6 103/ul Normal 1.2-3.8 [facility] Comment on above: Performed By: #### C BC #### [facility] [address] [place] [address] Dr. Kaden James Lymphocytes/100 WBC (Bld) 25.6 % Normal 20.5-60.0 [facility] Comment on above: Performed By: #### C BC #### [facility] [address] [place] [address] Dr. Kaden James MANUAL DIFF REQ NO Normal [facility] Comment on above: Performed By: #### C BC #### [facility] [address] [address] [address] Kaden James MCH (RBC) [Entitic mass] 31.9 pg Normal 25.9-34.0 [facility] Comment on above: Performed By: #### C BC #### [facility] [address] [address] [address] Kaden James MCHC (RBC) [Mass/Vol] 34.8 g/dL Normal 29.9-35.2 [facility] Comment on above: Performed By: #### C BC #### [facility] [address] [address] [address] Kaden James MCV (RBC) [Entitic vol] 91.8 fL Normal 80.0-94.0 [facility] Comment on above: Performed By: #### C BC #### [facility] [address] [place] [address] Dr. Kaden James MONO # 0.7 103/ul Normal 0.3-0.8 [facility] Comment on above: Performed By: #### C BC #### [facility] [address] [place] [address] Dr. Kaden James Monocytes/100 WBC (Bld) 6.8 % Normal 1.7-12.0 [facility] Comment on above: Performed By: #### C BC #### [facility] [address] [place] [address] Dr. Kaden James NEUT # 6.6 103/ul Critically high 1.4-6.5 [facility] Comment on above: Performed By: #### C BC #### [facility] [address] [place] [address] Dr. Kaden James Neutrophils/100 WBC (Bld) 65.3 % Normal 43.0-75.0 [facility] Comment on above: Performed By: #### C BC #### [facility] [address] [place] [address] Dr. Kaden James Platelet mean volume (Bld) [Entitic vol] 9.2 fL Critically low 9.5-13.5 [facility] Comment on above: Performed By: #### C BC #### [facility] Laboratory [address], [place] [address] Dr. Kaden James PLT 393 103/ul Normal 150-450 [facility] Comment on above: Performed By: #### C BC #### [facility] [address] [address] [address] Kaden James RBC 4.86 106/ul Normal 4.70-6.10 [facility] Comment on above: Performed By: #### C BC #### [facility] [address], [place] [address] Dr. Kaden James WBC 10.1 103/ul Normal 4.0-11.0 [facility] Comment on above: Performed By: #### C BC #### [facility] [id number] Kaden James CT ABD/PELVIS WO CONon [...] HERSON MAGANA Date: 2022-11-16 09:10 Normal The [facility] ER URINE PROFILEon 3 Bilirubin Ql (U) Negative Normal NEGATIVE The [facility] Comment on above: Performed By: #### Agus HILL UMICRO #### [facility] [address] [place] [address] Dr. Kaden James Clarity (U) CLEAR Normal CLEAR [facility] Comment on above: Performed By: #### E RUR UMICRO #### [facility] [address] [place] [address] Dr. Kaden James Color (U) YELLOW Normal YELLOW [facility] Comment on above: Performed By: #### Agus HILL UMICRO #### [facility] [address] [place] [address] Dr. Kaden CARRANZA A micrscopic examination will be performed if indicated. Normal [facility] Comment on above: Performed By: #### Agus HILL UMICRO #### [facility] [address] [place] [address] Dr. Kaden James Glucose Ql (U) Negative Normal NEGATIVE [facility] Comment on above: Performed By: #### Agus HILL UMICRO #### [facility] [address] [place] [address] Dr. Kaden James Hemoglobin Ql (U) SMALL Abnormal NEGATIVE [facility] Comment on above: Performed By: #### Agus HILL UMICRO #### [facility] [address] [place] [address] Dr. Kaden James Ketones Ql (U) Negative Normal NEGATIVE [facility] Comment on above: Performed By: #### Agus RUR UMICRO #### [facility] [address] [place] [address] Dr. Kaden James LEUKOCYTES Negative Normal NEGATIVE [facility] Comment on above: Performed By: #### E RUR UMICRO #### [facility] [address] [place] [address] Dr. Kaden James Nitrite Ql (U) Negative Normal NEGATIVE [facility] Comment on above: Performed By: #### Agus RUR, UMICRO #### [facility] [address] [address] [address] Kaden James pH (U) 7.0 [pH] Normal 5-9 [facility] Comment on above: Performed By: #### ELIZABETH ROLLERO #### [facility] [address] [place] [address] Dr. Kaden James SPEC GRAVITY 1.020 Normal 1.005-<=1.025 [facility] Comment on above: Performed By: #### ELIZABETH ROLLERO #### [facility] [address] [place] [address] Dr. Kaden James UA PROTEIN Negative Normal NEGATIVE/ TRACE [facility] Comment on above: Performed By: #### HAMLET ROLLE #### [facility] [address] [place] [address] Dr. Kaden James UR MICRO IND INDICATED Normal [facility] Comment on above: Performed By: #### HAMLET ROLLE #### [facility] [address] [place] [address] Dr. Kaden James Urobilinogen Qn (U) 0.2 {Deonna'U}/dL Normal 0.2 - 1. 0 [facility] Comment on above: Performed By: #### ELIZABETH ROLLERO #### [facility] [address] [place] [address] Dr. Kaden James PROF CHEM 8 (BAS METB)on Anion gap [Moles/Vol] 11.3 mmol/L Normal [facility] Comment on above: Performed By: #### B MP #### [facility] [address] [place] [address] Dr. Kaden James Calcium [Mass/Vol] 9.2 mg/dL Normal 8.5-10.1 [facility] Comment on above: Performed By: #### B MP #### [facility] [address] [place] [address] Dr. Kaden James Chloride [Moles/Vol] 109 mmol/L Critically high 98-107 [facility] Comment on above: Performed By: #### B MP #### [facility] [address] [address] [address] Kaden James CO2 [Moles/Vol] 29.6 mmol/L Normal 21.0-32.0 [facility] Comment on above: Performed By: #### B MP #### [facility] [address] [address] [address] Kaden James Creatinine [Mass/Vol] 1.48 mg/dL Critically high 0.70-1.30 [facility] Comment on above: Performed By: #### B MP #### [facility] [address] [address] [address] Kaden James EGFR-AF TAJIK 60 mL/min/1.73m2 Normal >=60 [facility] Comment on above: Performed By: #### B MP #### [facility] [address] [place] [address] Dr. Kaden James EGFR-NON AF TAJIK 50 mL/min/1.73m2 Critically low >=60 [facility] Comment on above: Performed By: #### B MP #### [facility] [address] [address] [address] Kaden James Glucose [Mass/Vol] 112 mg/dL Critically high 74-106 [facility] Comment on above: Performed By: #### B MP #### [facility] [address] [address] [address] Kaden James Potassium [Moles/Vol] 3.9 mmol/L Normal 3.5-5.1 [facility] Comment on above: Performed By: #### B MP #### [facility] [address] [address] [address] Kaden James Sodium [Moles/Vol] 146 mmol/L Critically high 136-145 [facility] Comment on above: Performed By: #### B MP #### [facility] [address] [address] [address] Kaden James Urea nitrogen [Mass/Vol] 13.0 mg/dL Normal 7.0-18.0 [facility] Comment on above: Performed By: #### B MP #### [facility] [address] [place] [address] Dr. Kaden James Urea nitrogen/Creatinine [Mass ratio] 8.8 mg/mg Normal [facility] Comment on above: Performed By: #### B MP #### [facility] [address] [place] [address] Dr. Kaden James URINE MICROSCOPIC ONLYon BACTERIA NONE SEEN Normal NONE SEEN [facility] Comment on above: Performed By: #### Agus HILL UMICRO #### [facility] [address] [place] [address] Dr. Kaden James Bacteria identified Cx Nom (U) NOT INDICATED Normal [facility] Comment on above: Performed By: #### Agus HILL UMICRO #### [facility] [address] [place] [address] Dr. Kaden James CAST NONE SEEN Normal NONE SEEN [facility] Comment on above: Performed By: #### Agus HILL UMICRO #### [facility] [address] [place] [address] Dr. Kaden James Crystals LM Nom (Urine sed) NONE SEEN Normal NONE SEEN [facility] Comment on above: Performed By: #### Agus HILL UMICRO #### [facility] [address] [place] [address] Dr. Kaden James Epithelial cells LM Ql (Urine sed) RARE Normal NONE SEEN /RARE [facility] Comment on above: Performed By: #### Agus HILL UMICRO #### [facility] [address] [place] [address] Dr. Kaden James MUCOUS TRACE Abnormal NONE SEEN The [facility] Comment on above: Performed By: #### Agus HILL UMICRO #### [facility] [address] [place] [address] Dr. Kaden James RBC 2-5 Abnormal 0-2 [facility] Comment on above: Performed By: #### Agus HILL UMICRO #### [facility] [address] [place] [address] Dr. Kaden James WBC 0-2 Abnormal NONE SEEN The [facility] Comment on above: Performed By: #### E HAMLET HILL #### [facility] [address] [address] [address] Kaden James Vital Signs Date Time Vital Sign Value Performing Clinician Facility 01-05-2025 12:59-0400 Body height 165.[address] DO Work Phone: [facility] 01-05-2025 12:59-0400 Body mass index (BMI) [Ratio] 24.1 kg/m2 Radha Ct DO Work Phone: [facility] 01-05-2025 12:59-0400 Body weight 65.[address] DO Work Phone: [facility] 01-05-2025 12:59-0400 Diastolic blood pressure 86 mm[Hg] Radha Ct DO Work Phone: [facility] 01-05-2025 12:59-0400 Heart rate 77 /min Radha Ct DO Work Phone: [facility] 01-05-2025 12:59-0400 SaO2% (BldA) [Mass fraction] 99 % Radha Ct DO Work Phone: [facility] 01-05-2025 12:59-0400 Systolic blood pressure 152 mm[Hg] Radha Ct DO Work Phone: [facility] 12-13-2024 14:49-0400 Body height 165.1 cm [facility] 12-13-2024 14:49-0400 Body mass index (BMI) [Ratio] 24.7 kg/m2 [facility] 12-13-2024 14:49-0400 Body temperature 97.8 [degF] [facility] 12-13-2024 14:49-0400 Body weight 67.58 kg [facility] 12-13-2024 14:49-0400 Diastolic blood pressure 82 mm[Hg] [facility] 12-13-2024 14:49-0400 Heart rate 81 /min [facility] 12-13-2024 14:49-0400 SaO2% (BldA) [Mass fraction] 97 % [facility] 12-13-2024 14:49-0400 Systolic blood pressure 138 mm[Hg] [facility] 11-15-2024 16:57-0500 Body height 165.[address] DO Work Phone: [facility] 11-15-2024 16:57-0500 Body mass index (BMI) [Ratio] 24.3 kg/m2 Radha Ct DO Work Phone: [facility] 11-15-2024 16:57-0500 Body weight 66.[address] DO Work Phone: [facility] 11-15-2024 16:57-0500 Diastolic blood pressure 84 mm[Hg] Radha Ct DO Work Phone: [facility] 11-15-2024 16:57-0500 Systolic blood pressure 118 mm[Hg] Radha Ct DO Work Phone: [facility] 09-20-2024 15:05-0500 Body height 165.1 cm Jayson Carcamo [employer]GER Work Phone: [facility] 09-20-2024 15:05-0500 Body mass index (BMI) [Ratio] 24.46 kg/m2 Jayson Carcamo [employer] MANAGER Work Phone: [facility] 09-20-2024 15:05-0500 Body temperature 98.4 [degF] Jayson Carcamo [employer] MANAGER Work Phone: [facility] 09-20-2024 15:05-0500 Body weight 66.68 kg Jayson Carcamo [employer] MANAGER Work Phone: [facility] 09-20-2024 15:05-0500 Diastolic blood pressure 74 mm[Hg] Jayson Carcamo [employer] MANAGER Work Phone: [facility] 09-20-2024 15:05-0500 Heart rate 72 /min Jayson Carcamo [employer] MANAGER Work Phone: [facility] 09-20-2024 15:05-0500 Respiratory rate 18 /min Jayson Carcamo [employer] MANAGER Work Phone: [facility] 09-20-2024 15:05-0500 SaO2% (BldA) [Mass fraction] 99 % Jayson Carcamo [employer] MANAGER Work Phone: [facility] 09-20-2024 15:05-0500 Systolic blood pressure 132 mm[Hg] Jayson Carcamo [employer] MANAGER Work Phone: [facility] 06-29-2024 16:22-0400 Body height 165.[address] DO Work Phone: [facility] 06-29-2024 16:22-0400 Body mass index (BMI) [Ratio] 22.47 kg/m2 Radha Ct DO Work Phone: [facility] 06-29-2024 16:22-0400 Body weight 61.[address] DO Work Phone: [facility] 06-29-2024 16:22-0400 Diastolic blood pressure 90 mm[Hg] Radha Ct DO Work Phone: [facility] 06-29-2024 16:22-0400 Heart rate 76 /min Radha Ct DO Work Phone: [facility] 06-29-2024 16:22-0400 SaO2% (BldA) [Mass fraction] 96 % Radha Ct DO Work Phone: [facility] 06-29-2024 16:22-0400 Systolic blood pressure 138 mm[Hg] Radha Ct DO Work Phone: [facility] 06-14-2024 14:50-0400 Body height 165.1 cm Jayson Carcamo [employer] MANAGER Work Phone: [facility] 06-14-2024 14:50-0400 Body mass index (BMI) [Ratio] 23.8 kg/m2 Jayson Carcamo [employer] MANAGER Work Phone: [facility] 06-14-2024 14:50-0400 Body temperature 98.4 [degF] Jayson Benderpatrick [employer] MANAGER Work Phone: [facility] 06-14-2024 14:50-0400 Body weight 64.86 kg Jayson Carcamo FL[employer] MANAGER Work Phone: [facility] 06-14-2024 14:50-0400 Diastolic blood pressure 76 mm[Hg] Jayson Carcamo [employer] MANAGER Work Phone: [facility] 06-14-2024 14:50-0400 Heart rate 70 /min Jayson Carcamo [employer] MANAGER Work Phone: [facility] 06-14-2024 14:50-0400 Respiratory rate 16 /min Jayson Carcamo [employer] MANAGER Work Phone: [facility] 06-14-2024 14:50-0400 SaO2% (BldA) [Mass fraction] 97 % Jayson Benderpatrick [employer] MANAGER Work Phone: [facility] 06-14-2024 14:50-0400 Systolic blood pressure 120 mm[Hg] Jayson Carcamo [employer] MANAGER Work Phone: [facility] 06-01-2024 16:39-0400 Body height 165.[address] DO Work Phone: [facility] 06-01-2024 16:39-0400 Body mass index (BMI) [Ratio] 21.63 kg/m2 Radha Ct DO Work Phone: [facility] 06-01-2024 16:39-0400 Body weight 58.[address] DO Work Phone: [facility] 06-01-2024 16:39-0400 Diastolic blood pressure 82 mm[Hg] Radha Ct DO Work Phone: [facility] 06-01-2024 16:39-0400 Heart rate 86 /min Radha Ct DO Work Phone: [facility] 06-01-2024 16:39-0400 SaO2% (BldA) [Mass fraction] 97 % Radha Ct DO Work Phone: [facility] 06-01-2024 16:39-0400 Systolic blood pressure 154 mm[Hg] Radha Ct DO Work Phone: [facility] 05-12-2024 15:13-0400 Body height 165.1 cm Jayson Carcamo FL[employer] MANAGER Work Phone: [facility] 05-12-2024 15:13-0400 Body mass index (BMI) [Ratio] 23.8 kg/m2 Jayson Carcamo [employer] MANAGER Work Phone: [facility] 05-12-2024 15:13-0400 Body temperature 99 [degF] Jayson Carcamo [employer] MANAGER Work Phone: [facility] 05-12-2024 15:13-0400 Body weight 64.86 kg Jayson Carcamo FL[employer] MANAGER Work Phone: [facility] 05-12-2024 15:13-0400 Diastolic blood pressure 80 mm[Hg] Jayson Carcamo [employer] MANAGER Work Phone: [facility] 05-12-2024 15:13-0400 Heart rate 68 /min Jayson Carcamo [employer] MANAGER Work Phone: [facility] Comment on above: 97% O2 05-12-2024 15:13-0400 Systolic blood pressure 130 mm[Hg] Jayson Carcamo [employer] MANAGER Work Phone: [facility] 04-09-2024 14:55-0400 Heart rate 70 /min [facility] 04-09-2024 14:55-0400 Respiratory rate 18 /min [facility] 03-01-2024 13:47-0400 Body height 165.1 cm Julianna DILLARD Work Phone: [facility] 03-01-2024 13:47-0400 Body mass index (BMI) [Ratio] 24.13 kg/m2 Julianna Rosario [employer] Work Phone: [facility] 03-01-2024 13:47-0400 Body weight 65.77 kg Julianna Rosario [employer] Work Phone: [facility] 03-01-2024 13:47-0400 Diastolic blood pressure 98 mm[Hg] Julianna Rosario [employer] Work Phone: [facility] 03-01-2024 13:47-0400 Heart rate 69 /min Julianna Rosario [employer] Work Phone: [facility] 03-01-2024 13:47-0400 Respiratory rate 16 /min Julianna Rosario [employer] Work Phone: [facility] 03-01-2024 13:47-0400 SaO2% (BldA) [Mass fraction] 98 % Julianna Rosario [employer] Work Phone: [facility] 03-01-2024 13:47-0400 Systolic blood pressure 136 mm[Hg] Julianna Rosario [employer] Work Phone: [facility] 02-03-2024 09:40-0400 Body height 165.1 cm [facility] 02-03-2024 09:40-0400 Body mass index (BMI) [Ratio] 23.6 kg/m2 [facility] 02-03-2024 09:40-0400 Body temperature 97.8 [degF] [facility] 02-03-2024 09:40-0400 Body weight 64.41 kg [facility] 02-03-2024 09:40-0400 Diastolic blood pressure 62 mm[Hg] [facility] 02-03-2024 09:40-0400 Heart rate 80 /min [facility] 02-03-2024 09:40-0400 Respiratory rate 16 /min [facility] 02-03-2024 09:40-0400 SaO2% (BldA) [Mass fraction] 97 % [facility] 02-03-2024 09:40-0400 Systolic blood pressure 114 mm[Hg] [facility] 02-01-2024 13:52-0400 Body height 165.1 cm Lakshmi Solitario MD Work Phone: [facility] 02-01-2024 13:52-0400 Body mass index (BMI) [Ratio] 23.85 kg/m2 Lakshmi Solitario MD Work Phone: [facility] 02-01-2024 13:52-0400 Body weight 65 kg Lakshmi Solitario MD Work Phone: [facility] 12-29-2023 09:01-0400 Body height 165.1 cm Julianna Rosario [employer] Work Phone: [facility] 12-29-2023 09:01-0400 Body mass index (BMI) [Ratio] 23.13 kg/m2 Julianna Nienberg [employer] Work Phone: [facility] 12-29-2023 09:01-0400 Body weight 63.05 kg Julianna Nienberg [employer] Work Phone: [facility] 12-29-2023 09:01-0400 Diastolic blood pressure 96 mm[Hg] Julianna Nienberg [employer] Work Phone: [facility] 12-29-2023 09:01-0400 Heart rate 74 /min Julianna Nienberg [employer]DIRECT[employer]IOLOGY Work Phone: [facility] [employer] [facility] 12-29-2023 09:01-0400 Respiratory rate 20 /min Julianna Nienberg [employer]OLOGY Work Phone: [facility] 12-29-2023 09:01-0400 Systolic blood pressure 142 mm[Hg] Julianna Nienberg [employer]IOLOGY Work Phone: [facility] 11-19-2022 13:39-0500 Blood Pressure Location Carleen CAPONE [facility] 11-19-2022 13:39-0500 Diastolic blood pressure 97 mm[Hg] Carleen CAPONE [facility] 11-19-2022 13:39-0500 Heart rate 69 /min Carleen CAPONE [facility] 11-19-2022 13:39-0500 Systolic blood pressure 150 mm[Hg] Carleen CAPONE [facility] Encounters Encounter Date Encounter Type Care Provider Facility Start: 01-05-2025 End: 01-05-2025 Office outpatient visit [address] DO Work Phone: [facility] Comment on above: Vocal tic disorder ( CMS/HCC) (Primary Dx); Primary insomnia; Hypersomnia; Inadequate sleep hygiene Start: 01-05-2025 End: 01-05-[address] Not Available Start: 12-13-2024 End: 12-13-2024 ambulatory [facility] Work Phone: Start: 12-13-2024 End: 12-13-2024 [facility] Work [facility]: Start: 11-22-2024 End: 11-23-[address] DO Work Phone: [facility] Comment on above: Primary insomnia Start: 11-15-2024 End: 11-15-2024 Office outpatient visit [address] DO Work Phone: [facility] Comment on above: Alcohol use disorder (Primary Dx); Primary insomnia; Anxiety; Inadequate sleep hygiene Start: 11-15-2024 End: 11-15-[address] Not Available Start: 11-15-2024 End: 11-15-[address] DO Work Phone: [facility] Start: 11-15-2024 End: 11-15-[address] DO Work Phone: [facility] Start: 09-20-2024 End: 09-20-2024 Office outpatient visit 15 minutes Jayson Benderpatrick [employer] MANAGER Work Phone: [facility] Comment on above: Occult blood in stoo ls (Primary Dx) Start: 09-20-2024 End: 09-20-2024 ambulatory JAYSON CARCAMO Not Available Start: 09-20-2024 End: 09-20-2024 Bamboo flowsheet Jayson Griffinzpatrick FLIGHT CONTROL MANAGER Work Phone: [facility] Start: 09-20-2024 End: 09-20-2024 Bamboo flowsheet Jayson Carcamo FLIGHT [employer]OL MANAGER Work Phone: [facility] Start: 09-20-2024 End: 09-20-2024 Clinisync Result Encounter Jayson Benderpatrick FL[employer] MANAGER Work Phone: [facility] Unsolicited Start: 06-29-2024 End: 06-29-[address] Not Available Start: 06-29-2024 End: 06-29-2024 Office outpatient visit [address] DO Work Phone: [facility] Comment on above: Hypersomnia (Primary Dx); Primary insomnia; Shift work sleep disorder; Inadequate sleep hygiene Start: 06-29-2024 End: 06-29-[address] DO Work Phone: [facility] Start: 06-29-2024 End: 06-29-[address] DO Work Phone: [facility] Start: 06-14-2024 End: 06-14-2024 Office outpatient visit 15 minutes Jayson Carcamo [employer] MANAGER Work Phone: [facility] Comment on above: Essential hypertensi on (CMS/HCC) (Primary Dx); Insomnia, unspecified type Start: 06-14-2024 End: 06-14-2024 ambulatory JAYSON CARCAMO Not Available Start: 06-14-2024 End: 06-14-2024 Bamboo flowsheet Jayson Magañak FLIGHT CONTROL MANAGER Work Phone: [facility] Start: 06-14-2024 End: 06-14-2024 Bamboo flowsheet Jayson Magañak FLIGHT CONTROL MANAGER Work Phone: [facility] Start: 06-01-2024 End: 06-01-2024 Office consultation new/estab patient 60 min Radha Fofana DO Work Phone: [facility] Comment on above: Primary insomnia (Pr imary Dx); Hypersomnia; Sleep disturbance; Alcohol use disorder Start: 06-01-2024 End: 06-01-2024 ambulatory RADHA FOFANA Not Available Start: 05-31-2024 End: 05-31-2024 Clinisync Result Encounter Jayson Carcamo FLIGHT CONTROL MANAGER Work Phone: [facility] Unsolicited Start: 05-31-2024 End: 05-31-2024 Clinisync Result Encounter Jayson Carcamo FLIGHT CONTROL MANAGER Work Phone: [facility] External Department Unsolicited Start: 05-30-2024 End: 05-30-2024 Telephone encounter Florentin Dupont MA [facility] Comment on above: Stool Color Change ( Pt called requesting a blood test for Liver. He said he has had yellow foamy stool, metal taste in mouth, anxiety, nausea and indigestion. He is concerned because his father had Pancreatic Cancer. So he is asking for testing. Sleeve Maker recommended he schedule an appt but he said the soonest he could get in was two weeks out. Please advise -SCR) Start: 05-12-2024 End: 05-12-2024 Office outpatient visit 25 minutes Jayson Carcamo FLIGHT CONTROL MANAGER Work Phone: [facility] Comment on above: Moderate persistent asthma without complication (CMS/HCC) (Primary Dx); Essential hypertension (CMS/HCC); Acute deep vein thrombosis of left popliteal vein (CMS/HCC); Insomnia, unspecified type; Non-recurrent acute suppurative otitis media of left ear without spontaneous rupture of tympanic membrane Start: 05-12-2024 End: 05-12-2024 ambulatory JAYSON CARCAMO Not Available Start: 05-12-2024 End: 05-12-2024 Bamboo flowsheet Jayson Carcamo FLIGHT CONTROL MANAGER Work Phone: [facility] Start: 05-12-2024 End: 05-12-2024 Bamboo flowsheet Jayson Carcamo FLIGHT CONTROL MANAGER Work Phone: [facility] Start: 04-14-2024 End: 04-14-2024 ambulatory MICHAEL RADHA Not Available Start: 04-09-2024 End: 04-09-2024 ambulatory [facility] Work Phone: Start: 04-09-2024 End: 04-09-2024 Patient encounter procedure [facility] Work Phone: Start: 04-06-2024 [...] SMART Not Available Start: 03-01-2024 End: 03-01-2024 Office outpatient visit 15 minutes Desirae Lomax PA-C Work Phone: [facility] Comment on above: Lumbar disc disease with radiculopathy (Primary Dx) Start: 03-01-2024 End: 03-01-2024 ambulatory JULIANNA ROSARIO [facility] Start: 02-10-2024 End: 02-10-2024 ambulatory SHAIKH LAURAEZEKIEL Not Available Start: 02-04-2024 End: 02-04-2024 ambulatory SHAIKH ANCARODRIGUEZ Not Available Start: 02-03-2024 End: 02-03-2024 ambulatory [facility] Work Phone: Start: 02-03-2024 End: 02-03-2024 Patient encounter [facility] Vascular Surgery Work Phone: Start: 02-01-2024 End: 02-01-2024 ambulatory BILAL ANDREW BUTT Facility:[facility] Start: 02-01-2024 End: 02-01-2024 Office outpatient new 30 minutes Bilal Andrew Solitario MD Work Phone: [facility] Comment on above: Lumbar disc herniati on with radiculopathy; Degeneration of lumbar intervertebral disc Start: 01-28-2024 End: 01-28-2024 ambulatory REBECCA TATTERSALL Not Available Start: 01-26-2024 End: 01-26-2024 ambulatory REBECCA TATTERSALL Not Available Start: 01-19-2024 End: 01-19-2024 Telephone encounter [facility] Work Phone: [facility] Start: 01-19-2024 End: 01-19-2024 ambulatory REBECCA TATTERSALL Not Available Start: 01-15-2024 End: 01-15-2024 ambulatory JESSE COLLADO [facility] Start: 01-14-2024 End: 01-14-2024 ambulatory PACO SMART Not Available Start: 01-13-[address] 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 Start: 01-07-2024 End: 01-07-2024 Emergency department patient visit AMY FARMER Facility:[facility] Start: 01-07-2024 End: 01-07-2024 ambulatory ROBERT CONSTANTINO Facility:[facility] Start: 01-07-2024 End: 01-07-2024 Patient encounter procedure Desirae Lo BARTENDERS.DIRECTOR OF CARDIOLOGY Work Phone: [facility] Comment on above: Lumbar disc herniati on with radiculopathy (Primary Dx); Degeneration of lumbar intervertebral disc; Left leg swelling Start: 01-04-2024 Telephone encounter Desirae cali BARTENDERS.DIRECTOR OF CARDIOLOGY Work Phone: [facility] Comment on above: Production 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 - O ther Start: 12-29-2023 End: 12-29-2023 Office outpatient new 30 minutes Julianna Kenyetta BARTENDERS-DIRECTOR OF CARDIOLOGY Work Phone: [facility] Comment on above: Lumbar disc disease with radiculopathy (Primary Dx) Start: 12-29-2023 End: 12-29-2023 ambulatory [facility] Davida [facility] Start: 12-18-2023 End: 01-21-2024 Telephone encounter Cynthia Miller RN [facility] Comment on above: Pain Management Start: 10-21-2023 Telephone encounter Florentin Dupont MA [facility] Comment on above: Med Refill (VIAGRA R EFILL) Start: 04-06-2023 ambulatory Carleen CAPONE Facili ty:[facility] Start: 12-09-2022 ambulatory Carleen CAPONE Facili ty:[facility] Start: 12-05-2022 End: 12-06-2022 ambulatory Carleen CAPONE Facility:[id number] Start: 11-26-2022 End: 11-27-2022 ambulatory Carleen CAPONE Facility:[facility] Start: 11-26-2022 End: 11-27-2022 ambulatory LESLY ZUNIGA Facility:[facility] Start: 11-26-2022 End: 11-26-2022 Lab Drop off Carleen CAPONE [facility] Start: 11-26-2022 End: 11-26-2022 Patient encounter procedure LESLY EFRAIN [facility] Start: 11-20-2022 End: [address] CARLEEN CAPONE . Facility:[facility] Start: 11-19-2022 End: 11-20-2022 ambulatory Carleen CAPONE Facility:[facility] Start: 11-19-2022 End: 11-19-2022 Patient encounter procedure Carleen CAPONE [facility] Start: 11-16-2022 End: 11-16-2022 ambulatory TIM WEAVER Facility:[facility] Procedures Date Procedure Procedure Detail Performing Clinician Start: 09-20-2024 ALL CBC WITH AUTO DIFF Jayson Carcamo FLIGHT CONTROL MANAGER Work Phone: Start: 05-31-2024 ALL CBC WITH AUTO DIFF Jayson Carcamo FLIGHT CONTROL MANAGER Work Phone: Start: 10-19-2023 Colonoscopy Florentin galan MA Start: 07-01-2023 Colonoscopy Lauryn houser CLINICAL EDUCATOR Colonoscopy Carleen CAPONE Vasectomy Carleen CAPONE Plan of Treatment Date Care Activity Detail Author Start: 10-19-2033 Screening for malign ant neoplasm of colon [facility] Start: 07-01-2033 Screening for malign ant neoplasm of colon [facility] Start: 07-01-2028 Screening for malign ant neoplasm of colon Colonoscopy [facility] [employer] [facility] Start: 01-06-2027 Diabetes Screening Diabetes Screenin [facility] Start: 05-15-2025 Influenza vaccination Influenz a Vaccine (Season Ended) [facility] Start: 03-01-2025 Adult BMI Screening Adult [facility] Screen [facility] Start: 03-01-2025 Tobacco Screening Tobacco Screening [facility] Start: 02-07-2025 End: 02-07-2025 Patient encounter procedure [facility] Start: 01-20-2025 Screening for malign ant neoplasm of colon [facility] Start: 01-05-2025 End: 01-05-2026 Thyrotropin [Units/volume] in Serum or Plasma TSH Lab Routine Vocal tic disorder (CMS/HCC) Expected: 01/05/2025 (Approximate), Expires: 01/05/2026 [facility] Work Phone: Comment on above: Expected: 01/05/2025 (Approximate), Expires: 01/05/2026 Start: 12-28-2024 Adult BMI Screening Adult BMI Screen ing [facility] Start: 12-28-2024 Tobacco Screening Tobacco Screening [facility] Start: 12-20-2024 End: 12-20-2024 Patient encounter procedure 12/20/2024 3:00 PM EDT Office Visit [facility] [address] [place] [phone] Jayson Carcamo, VIKAS [address] [place] [address] [facility] Start: 11-15-2024 End: 11-15-2024 Patient encounter procedure 11/15/2024 5:00 PM EST Office Visit [facility] [address] [place] [address] Radha Fofana DO [address] [place], [place] [id number] Arrived [facility] Comment on above: Arrived Start: 11-15-2024 Influenza vaccination Influenza Vacc ine (#1) [facility] Comment on above: Postponed from 05/15 (Patient Refused) Start: 09-28-2024 End: 09-28-2024 Patient encounter procedure [facility] [address] Start: 09-22-2024 End: 09-22-2024 Patient encounter procedure 09/22/2024 3:00 PM EST Office Visit [facility] [address] [place] [address] Jayson Carcamo, FLIGHT CONTROL MANAGER [address] [place] [address] [facility] Start: 09-20-2024 End: 09-20-2024 Patient encounter procedure 09/20/2024 3:00 PM EST Office Visit [facility] [address] [place] [address] Jayson Carcamo, FLIGHT CONTROL MANAGER [address] [place] [address] Arrived [facility] Comment on above: Arrived Start: 09-20-2024 End: 09-20-2025 CBC W Auto Differential panel - Blood CBC and differential Lab Routine Occult blood in stools Expected: 09/20/2024 (Approximate), Expires: 09/20/2025 [facility] Work Phone: Comment on above: Expected: 09/20/2024 (Approximate), Expires: 09/20/2025 Start: 09-20-2024 End: 09-20-2025 Cobalamin (Vitamin B12) [Mass/volume] in Serum or Plasma Vitamin B12 Lab Routine Occult blood in stools Expected: 09/20/2024 (Approximate), Expires: 09/20/2025 [facility] Comment on above: Expected: 09/20/2024 (Approximate), Expires: 09/20/2025 Start: 09-20-2024 End: 09-20-2025 Ferritin [Mass/volume] in Serum or Plasma Ferritin Lab Routine Occult blood in stools Expected: 09/20/2024 (Approximate), Expires: 09/20/2025 [facility] Comment on above: Expected: 09/20/2024 (Approximate), Expires: 09/20/2025 Start: 09-20-2024 End: 09-20-2025 Iron + transferrin + TIBC Iron + transferrin + TIBC Lab Routine Occult blood in stools Expected: 09/20/2024 (Approximate), Expires: 09/20/2025 [facility] Comment on above: Expected: 09/20/2024 (Approximate), Expires: 09/20/2025 Start: 09-20-2024 End: 09-20-2025 Measurement of occult blood in single stool specimen Occult blood x 1, stool Lab Routine Occult blood in stools Expected: 09/20/2024 (Approximate), Expires: 09/20/2025 [facility] Comment on above: Expected: 09/20/2024 (Approximate), Expires: 09/20/2025 Start: 08-04-2024 End: 08-04-2024 Patient encounter procedure 08/04/2024 3:30 PM EST Office Visit [facility] [address] [place] [address] Jayson Carcamo, VIKAS [address] [place] [address] [facility] Start: 06-29-2024 End: 06-29-2024 Patient encounter procedure 06/29/2024 4:15 PM EDT Office Visit [facility] [address] [place] [phone] Radha Fofana, [address] [place] [address] [facility] Start: 06-14-2024 End: 06-14-2024 Patient encounter procedure [facility] Comment on above: Arrived Start: 06-09-2024 End: 06-09-2024 Patient encounter procedure 06/09/2024 11:00 AM EDT Office Visit [facility] [address] [place] [address] Jayson Carcamo, VIKAS [address] [place] [phone] [facility] Start: 06-01-2024 End: 06-01-2024 Patient encounter procedure 06/01/2024 4:30 PM EDT Office Visit [facility] [address] [place] [phone] Ct Radha, [address] [place] [address] [facility] Start: 05-31-2024 End: 05-31-2024 Patient encounter procedure 05/31/2024 3:00 PM EDT Office Visit [facility] [address] [place] [phone] Julianna Rosario, BARTENDERS-DIRECTOR OF CARDIOLOGY [address], [place] [phone] [facility] Start: 05-30-2024 End: 05-30-2025 CBC W Auto Differential panel - Blood CBC and differential Lab Routine Change in consistency of stool Family history of pancreatic cancer Essential hypertension (CMS/HCC) Expected: 05/30/2024 (Approximate), Expires: 05/30/2025 [facility] Work Phone: Comment on above: Expected: 05/30/2024 (Approximate), Expires: 05/30/2025 Start: 05-30-2024 End: 05-30-2025 Comprehensive metabolic 2000 panel - Serum or Plasma Comprehensive metabolic panel Lab Routine Change in consistency of stool Family history of pancreatic cancer Essential hypertension (CMS/HCC) Expected: 05/30/2024 (Approximate), Expires: 05/30/2025 [facility] Comment on above: Expected: 05/30/2024 (Approximate), Expires: 05/30/2025 Start: 05-15-2024 Influenza vaccination [facility] Start: 05-12-2024 End: 05-12-2024 Patient encounter procedure 05/12/2024 3:30 PM EDT Office Visit [facility] [address] [place] [address] Jayson Carcamo, VIKAS [address] [place] [address] [facility] Comment on above: Arrived Start: 05-12-2024 End: 05-12-2025 CBC W Auto Differential panel - Blood CBC and differential Lab Routine Essential hypertension (CMS/HCC) Expected: 05/12/2024 (Approximate), Expires: 05/12/2025 [facility] Work Phone: Comment on above: Expected: 05/12/2024 (Approximate), Expires: 05/12/2025 Start: 05-06-2024 End: 05-06-2024 Patient encounter procedure 05/06/2024 2:00 PM EDT Office Visit [facility] [address] [place] [phone] Lakshmi Solitario MD [address] [place] [id number] follow up 3 months [facility] Comment on above: follow up 3 months Start: 03-13-2024 Influenza vaccination Influenza Vacc ine (#1) [facility] Comment on above: Postponed from 05/15 (Patient Refused) Start: 02-02-2024 End: 02-02-2024 Patient encounter procedure 02/02/2024 9:45 AM EDT Office Visit [facility] [address] [place] [address] Julianna Rosario, BARTENDERS-DIRECTOR OF CARDIOLOGY [address] [place], [place] [phone] [facility] Start: 01-15-2024 End: 01-15-2024 Admission to same day surgery center 01/15/2024 10:08 AM EDT - 01/15/2024 10:14 AM EDT Surgery [facility] [address] [place] [phone] Jesse Collado MD [address] [facility] [place] [phone] INJECTION SPINE TRANSFORAMINAL LEFT L3, L4 NERVE ROOT [23676 (CPT )] [facility] Comment on above: INJECTION SPINE YOO SFORAMINAL LEFT L3, L4 NERVE ROOT [14395 (CPT )] Start: 01-15-2024 End: 01-15-2024 Njx anes&/strd w/img tfrml edrl lmbr/sac 1 lvl INJECTION SPINE TRANSFORAMINAL Lumbar disc disease with radiculopathy 01/15/2024 10:08 AM EDT [facility] Start: 01-15-2024 Subsequent hospital visit by physician [facility] Start: 01-07-2024 End: 01-07-2024 Patient encounter procedure 01/07/2024 8:00 AM EDT Office Visit [facility] [address] [place] [address] [place] [address] Desirae Lo, BARTENDERS.DIRECTOR OF CARDIOLOGY [address] [place] [address] Ruptured disc pinched nerve [facility] Comment on above: Ruptured disc pinche d nerve Start: 11-22-2023 Prostate specific antigen measurement Prostate Cancer Screening Discussion [facility] Start: 09-14-2023 Behavioral Health Screening Behavioral Health Screening [facility] Start: 05-15-2023 Covid-19 Vaccine ( season) Covid-19 Vaccine ( season) [facility] Start: 2018 Administration of varicella zoster vaccine Zoster (Shingles) Vaccine (1 of 2) [facility] Start: 2018 Shingrix Vaccine (1 of 2) Shingrix Vaccine (1 of 2) [facility] Start: 2013 Diabetes Screening Diabetes Screenin g [facility] Start: 2013 Screening for malign ant neoplasm of colon [facility] Start: 11-22-2003 Lipid panel Lipid Screening [facility] Start: 11-22-1987 DTaP,Tdap and Td Vaccines (1 - Tdap) DTaP,Tdap and Td Vaccines (1 - Tdap) [facility] Start: 11-22-1987 Hepatitis B Vaccine (1 of 3 - 19+ 3-dose series) Hepatitis B Vaccine (1 of 3 - 19+ 3-dose series) [facility] Start: 11-22-1987 Urine microalbumin profile DTaP,Tdap,Td Vaccine (1 - Tdap) [facility] Start: 1986 Hepatitis C screening Hepatitis C Sc reening [facility] Start: 1986 HIV screening HIV Screening [facility] Start: 1980 Depression Screening Depression Scre ening [facility] Start: 1980 Tobacco Screening Tobacco Screening [facility] Start: 1968 Screening for malign ant neoplasm of colon [facility] Comprehensive metabo lic 1999 panel - Serum or Plasma Comprehensive metabolic panel Lab Routine Essential hypertension (CMS/HCC) Ordered: 05/12/2024 [facility] Comment on above: Ordered: 05/12/2024 Comprehensive metabo lic 1999 panel - Serum or Plasma [facility] Njx anes&/strd w/img tfrml edrl lmbr/sac 1 lvl INJECTION SPINE TRANSFORAMINAL Lumbar disc disease with radiculopathy [facility] Immunizations Immunization Date Immunization Notes Care Provider Laura mcmullen 06-15-2018 influenza virus vaccine, unspecified formulation Carleen CAPONE [facility] 06-15-2018 Influenza, injectabl e, Madin Warthen Canine Kidney, quadrivalent with preservative Florentin Dupont MA [facility] Healthcare Payers Date Payer Category Payer Private Health Insurance [id number] 2022 Unknown [id number] 1968 Unknown [id number] 2.16.84 0.1.136566.3.579.2.593 1968 Unknown [id number] 2.16.84 0.1.742346.3.579.2.593 1968 Unknown [id number] 2.16.8 40.1.653768.3.579.2.727 1968 Unknown [id number] 2.16.8 40.1.138410.3.579.2.727 1968 Unknown [id number] 2.16.8 40.1.320942.3.579.2.727 1968 Unknown [id number] 2.16.8 40.1.224932.3.579.2.727 1968 Unknown [id number] 2.16.8 40.1.053096.3.579.2.727 1968 Unknown [id number] 2.16.8 40.1.193934.3.579.2.727 1968 Unknown [id number] 2.16.8 40.1.129872.3.579.2.727 1968 Unknown [id number] 2.16.8 40.1.188355.3.579.2.1286 1968 Unknown [id number] 2.16.8 40.1.854167.3.579.2.1286 1968 Unknown [id number] 2.16.8 40.1.001103.3.579.2.1286 1968 Unknown [id number] 2.16.8 40.1.727613.3.579.2.1286 1968 Unknown [id number] 2.16.84 0.1.681636.3.579.2.1259 1968 Unknown [id number] 2.16.84 0.1.680376.3.579.2.1259 1968 Unknown [id number] 2.16.84 0.1.119924.3.579.2.1259 1968 Unknown [id number] 2.16.84 0.1.312494.3.579.2.9 1968 Unknown [id number] 2.16.84 0.1.177244.3.579.2.1258 1968 Unknown [id number] 2.16.84 0.1.436250.3.579.2.1258 1968 Unknown [id number] 2.16.84 0.1.260559.3.579.2.1258 1968 Unknown [id number] 2.16.84 0.1.029505.3.579.2.1258 1968 Unknown [id number] 2.16.84 0.1.738491.3.579.2.1258 1968 Unknown [id number] 2.16.84 0.1.333953.3.579.2.1258 1968 Unknown [id number] 2.16.84 0.1.986706.3.579.2.1258 1968 Unknown [id number] 2.16.84 0.1.730822.3.579.2.1258 1968 Unknown [id number] 2.16.84 0.1.650263.3.579.2.1258 1968 Unknown [id number] 2.16.84 0.1.217341.3.579.2.1258 1968 Unknown [id number] 2.16.84 0.1.509211.3.579.2.1258 1968 Unknown [id number] 2.16.84 0.1.023333.3.579.2.1258 1968 Unknown [id number] 2.16.84 0.1.060927.3.579.2.1258 1968 Unknown [id number] 2.16.84 0.1.099340.3.579.2.1258 1968 Unknown [id number] 2.16.84 0.1.293087.3.579.2.1258 1968 Unknown [id number] 2.16.84 0.1.222329.3.579.2.1259 1968 Unknown [id number] 2.16.84 0.1.956916.3.579.2.1259 1968 Unknown [id number] 2.16.84 0.1.428842.3.579.2.1259 1959 Unknown [id number] Unknown [facility] [id number] Social History Date Type Detail Facility Start: 11-19-2022 End: 08-31-2023 Tobacco smoking status Never smoked tobacco (finding) [facility] Tobacco smoking status Never [facility] Start: 08-31-2023 End: 12-24-2023 Sex Assigned At Male [facility] Start: 08-31-2023 End: 12-29-2023 Tobacco use and exposure Smokeless tobacco non-user [facility] Start: 09-29-2023 End: 01-05-2025 Alcohol intake Current drinker of alcohol (finding) [facility] Start: 09-29-2023 End: 12-24-2023 Alcohol intake [facility] Start: 1970 Sex Assigned At Not on file [facility] Start: 1968 Sex Assigned At Male F [facility] Are you now , , , , never or living with a partner? [facility] How often to you hav e a drink containing alcohol? 2-4 times a month [facility] How many standard drinks containing alcohol do you have on a typical day? 3 or 4 [facility] How often do you hav e 6 or more drinks on 1 occasion? Monthly [facility] How hard is it for you to pay for the very basics like food, housing, medical care, and heating Very hard [facility] Do you feel stress - tense, restless, nervous, or anxious, or unable to sleep at night because your mind is troubled all the time - these days [OSQ] Very much [facility] (I/We) worried whether (my/our) food would run out before (I/we) got money to buy more. Sometimes true [facility] In the past 12 months, was there a time when you were not able to pay the mortgage or rent on time? Yes [facility] Tobacco smoking status NHIS Tobacco smoking consumption [facility] Start: 12-13-2024 Sex Male (finding) [facility] NEGATED: Highlighted rowStart: NINF History of tobacco use Passive smoker [facility] Functional Status Date Assessment Result Facility 11-19-2022 Functional Status N/A [facility] Clinical Notes 11-19-2022 to 01-05-2025 Radha Fofana, - 01/05/2025 12:45 PM EDTTelephone Encounter - Raudel Hall, SCOTT - 11/23/2024 9:34 AM EDTTelephone Encounter - Raudel Hall, SCOTT - 11/23/2024 9:34 AM EDTPatient Instructions Note Date & Type Note Facility 01-05-2025 History of Presen t illness Narrative Images from the original note were not included. Chief Complaint Patient presents with vocal tic Subjective Ronny Reeves, 54 y.o., male here for follow up The patient states that he is having a tic of his voice. It started about 2 months ago but is becoming more frequent over the last 2 weeks. This is happening several time throughout the day. If he is excited or up moving around the house it becomes worse. He may make a grunting type of sounds. Nothing happened 1 months ago. He is getting about 6-7 hours of sleep. He does feel rested during the day. It is not painful. He is not having any facial movement or body movement. He did not have tics as a child. He has not had any new medications started. He states that he has had no change in sleep. He is taking lunesta and tolerating it well. Past Medical History: Diagnosis Date Back pain Chronic constipation Chronic neck and back pain Contact dermatitis due to poison carolyn Depression (CMS/HCC) Elevated blood pressure reading without diagnosis of hypertension Episodic circadian rhythm sleep disorder, shift work type Erectile dysfunction Hemorrhoid Hypertension (CMS/HCC) Insomnia Lower back pain Mild intermittent asthma Neck pain Otitis media Situational anxiety Sleep disorder, circadian Past Surgical History: Procedure Laterality Date HEMORRHOID SURGERY VASECTOMY 2007 Family History Problem Relation Name Age of Onset Lung disease Mother Cancer Father Diabetes Father Pancreatic cancer Father Other (Pancreatic Cancer) Father Hypertension Brother Diabetes Son Other (Liver transplant) Son Social History Tobacco Use Smoking status: Never Passive exposure: Never Smokeless tobacco: Never Substance Use Topics Alcohol use: Yes Alcohol/week: 6.0 standard drinks of alcohol Types: 6 Standard drinks or equivalent per week Allergies: Patient has no known allergies. General: No fever or chills HEENT: No nasal congestion or runny nose Pulmonary: No shortness of breath or cough Cardiovascular: No chest pain or palpitations GI: No nausea or vomiting : No dysuria or hematuria Musculoskeletal: No new aches or pains or muscle weakness Infectious: no recurrent fevers or infections Dermatologic: No rashes or skin lesions Neurologic: No new headaches or dizziness Vitals: 01/05/25 1259 BP: 152/86 Pulse: 77 SpO2: 99% Body mass index is 24.1 kg/m . Weight: 144 lb 12.8 oz Neurologic exam: General: Normal body habitus, cooperative, pleasant Mental status: Awake, alert to person, place and time. Recent and remote memory are intact. Attention and concentration are normal. Fund of knowledge is appropriate for level of education. HEENT: NC/AT Patient has Mallampati of proximally 3 but a narrow oropharyngeal opening. Cranial nerves: CN II: Visual fuller full to confrontation. No loss of vision CN III, IV, : pupils equal round and reactive to light. Extraocular movements intact. No ptosis present. CN V: Facial sensation is normal. CN VII: Full and symmetric facial movement. CN VIII: Hearing is normal CN IX and X: Palate elevates symmetrically. CN XI: Shoulder shrug is normal bilaterally. CN XII: Tongue is midline without atrophy or fasciculation. Speech: Clear and fluent no aphasia or dysarthria Pronator drift: Negative bilateral upper extremity Coordination: Intact, no signs of dysmetria Good finger to nose and rapid alternating movements Sensory: Sensation is intact to light, temperature and vibratory touch throughout four extremities. Motor: LUE 5/5 RUE 5/5 LLE 5/5 RLE 5/5 Tone: Physiologic, no tremor, bradykinesia or rigidity DTR: Bilateral Biceps 2/4 Bilateral BR 2/4 Bilateral Patellar 2/4 No spasticity Gait: Normal to casual gait Romberg's Negative Review and summary of old records: Assessment/Plan Diagnoses and all orders for this visit: Vocal tic disorder (CMS/HCC) - TSH; Future Primary insomnia Hypersomnia Inadequate sleep hygiene 53-year-old male with poor sleep Do sleep maintenance and sleep onset insomnia that causes sleep deprivation hypersomnia and some memory issues. He is on Lunesta that appears to be working. He was adding Benadryl however he has now developed some sort of vocal type of tic. He states it comes from his gut. He does not have it while he is in the office. He did stop the Benadryl as he was told that can occasionally cause things like a tic. He only stopped it a week ago. I do not see any other medicines that could cause it. He has no focal deficits on exam. He has no signs of motor tics or weakness. His blood work that is been done previously looks good except his serum ferritin is on the low end so we can add in some iron [id number]. We will go ahead and do a TSH and make sure that he is not having any hyperthyroid that could cause some of these unusual symptoms. He was offered some medication however at this time he wants to hold and just monitor it. He was worried because he read that a tic could be the 1st signs of a dementia process. Certainly I do not see that in clinical practice. We will go ahead and monitor his memory over time. I suspect much of his memory issues are subjective in more related to his sleep issues. He has poor sleep hygiene But is working on improving it. He is still not getting quite enough hours of sleep.. He does have a history of alcohol consumption that is chronic. That is certainly could be causing some of the symptoms he should stop drinking alcohol. We could potentially add in sublingual Ambien in the middle of the night if needed. He wants to hold on a sleep study right now as he is feeling better We Can consider switching him to a BIJU medication. He has tried Ambien, Ambien CR now on Lunesta Plan Stopped the Benadryl for now Monitor the tick TSH Add in iron [id number] about 50 mg daily Try to suppress the tic and see if it is more of a habit and he can break it hard to tell as he does not have it in the office Monitor the memory over time Try to get 7-8 hours of sleep Continue the Lunesta 3 mg 1 about 30 minutes before bedtime Get to the gym and exercise regularly and see if that helps Stopped drinking alcohol No caffeine within 3-6 hours of bedtime Improve sleep hygiene and get the TV off Controlled substance agreement form signed OARRS Was reviewed and is as expected He wants to hold On a sleep study right now as he is feeling better The diagnosis was all discussed with the patient. All questions were answered and they agreed with the treatment plan. Patient will call if there are any new issues or questions. Pt has been fully educated on their diagnosis, treatment options, follow up plan, and return instructions Return to clinic: 4 weeks documented in this encounter [facility] 11-23-2024 Telephone encounter Note 11/15/2024 Continue the Lunesta 3 mg 1 about 30 minutes before bedtime OARRS reviewed due 11/26/2024 [facility] 11-23-2024 Miscellaneous Notes 11/15/2024 Continue the Lunesta 3 mg 1 about 30 minutes before bedtime OARRS reviewed due 11/26/2024 documented in this encounter [facility] 11-15-2024 History of Presen t illness Narrative Images from the original note were not included. No chief complaint on file. Subjective Ronny Reeves, 53 y.o., male here for follow up The pt reports that lunesta has been helping. He is taking Melatonin at dinner at time. He is sleeping 4-6 hours a night now. He is still waking up in the middle of the night but is able to go back to sleep. Notes that he is taking half of the lunesta at bed time. Notes that if he wakes in the middle of the night, he will take the other half. He states that he takes half before bed and half in the middle of the night. He states that he has some intense heart beat. He states that he has cut back on the twisted tea and soda. He is drinking about 4 days a week. He does drink some sodas during the week. He has removed the TV from his bedroom. 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 Today he is a little tired but lately he has been overall doing well. HE does not have a bed partner. When he was he would snore when he was really tired. He is feeling better. He also feel better with his joints and inflammation. Past Medical History: Diagnosis Date Back pain Chronic constipation Chronic neck and back pain Contact dermatitis due to poison carolyn Depression (CMS/HCC) Elevated blood pressure reading without diagnosis of hypertension Episodic circadian rhythm sleep disorder, shift work type Erectile dysfunction Hemorrhoid Hypertension (CMS/HCC) Insomnia Lower back pain Mild intermittent asthma (CMS/HCC) Neck pain Otitis media Situational anxiety Sleep disorder, circadian Past Surgical History: Procedure Laterality Date HEMORRHOID SURGERY VASECTOMY 2006 Family History Problem Relation Name Age of Onset Lung disease Mother Cancer Father Diabetes Father Pancreatic cancer Father Other (Pancreatic Cancer) Father Hypertension Brother Diabetes Son Other (Liver transplant) Son Social History Tobacco Use Smoking status: Never Passive exposure: Never Smokeless tobacco: Never Substance Use Topics Alcohol use: Yes Alcohol/week: 6.0 standard drinks of alcohol Types: 6 Standard drinks or equivalent per week Allergies: Patient has no known allergies. General: No fever or chills HEENT: No nasal congestion or runny nose Pulmonary: No shortness of breath or cough Cardiovascular: No chest pain or palpitations GI: No nausea or vomiting : No dysuria or hematuria Musculoskeletal: No new aches or pains or muscle weakness Infectious: no recurrent fevers or infections Dermatologic: No rashes or skin lesions Neurologic: No new headaches or dizziness Vitals: 11/15/24 1657 BP: 118/84 Body mass index is 24.3 kg/m . weight: 146 lb Neurologic exam: General: Normal body habitus, cooperative, pleasant Mental status: Awake, alert to person, place and time. Recent and remote memory are intact. Attention and concentration are normal. Fund of knowledge is appropriate for level of education. HEENT: NC/AT Patient has Mallampati of proximally 3 but a narrow oropharyngeal opening. Cranial nerves: CN II: Visual fuller full to confrontation. No loss of vision CN III, IV, : pupils equal round and reactive to light. Extraocular movements intact. No ptosis present. CN V: Facial sensation is normal. CN VII: Full and symmetric facial movement. CN VIII: Hearing is normal CN IX and X: Palate elevates symmetrically. CN XI: Shoulder shrug is normal bilaterally. CN XII: Tongue is midline without atrophy or fasciculation. Speech: Clear and fluent no aphasia or dysarthria Pronator drift: Negative bilateral upper extremity Coordination: Intact, no signs of dysmetria Good finger to nose and rapid alternating movements Sensory: Sensation is intact to light, temperature and vibratory touch throughout four extremities. Motor: LUE 5/5 RUE 5/5 LLE 5/5 RLE 5/5 Tone: Physiologic, no tremor, bradykinesia or rigidity DTR: Bilateral Biceps 2/4 Bilateral BR 2/4 Bilateral Patellar 2/4 No spasticity Gait: Normal to casual gait Romberg's Negative Review and summary of old records: Assessment/Plan Diagnoses and all orders for this visit: Alcohol use disorder Primary insomnia - eszopiclone (Lunesta) 3 MG tablet; Take 1 tablet (3 mg) by mouth at bedtime Take immediately before bedtime Anxiety Inadequate sleep hygiene 53-year-old male with poor sleep and daytime hypersomnia that is multifactorial. He appears to have a sleep onset and sleep maintenance insomnia. We switched him off of Ambien CR to Lunesta. This appears to be working better. He is still cutting the pill in half and then taking half of it through the night. He is still drinking alcohol too frequently which I feel is disrupting his sleep. He still has poor sleep hygiene with the TV on at times. He did get a gym membership but has not been going he needs to get to the gym. I would rather have him work on some of his sleep hygiene rather than just change medication however we could consider switching him to a BIJU medication pending his course. We could potentially add in sublingual Ambien in the middle of the night if needed. He wants to hold on a sleep study right now as he is feeling better than he was previously and wants to continue to work on sleep hygiene and continue the Lunesta and melatonin and hemp oil. We Can consider switching him to a BIJU medication. He has tried Ambien, Ambien CR now on Lunesta Plan Continue the Lunesta 3 mg 1 about 30 minutes before bedtime Get to the gym and exercise regularly and see if that helps Stopped drinking alcohol No caffeine within 3-6 hours of bedtime Improve sleep hygiene and get the TV off Controlled substance agreement form signed OARRS Was reviewed and is as expected He wants to hold On a sleep study right now as he is feeling better The diagnosis was all discussed with the patient. All questions were answered and they agreed with the treatment plan. Patient will call if there are any new issues or questions. Pt has been fully educated on their diagnosis, treatment options, follow up plan, and return instructions Return to clinic: 4 weeks documented in this encounter [facility] 09-20-2024 History of Presen t illness Narrative Associated Problem(s): Occult blood in stools Pt reports he had back tarry stools [...] report immediately to ER. Pt verbalized understanding. Images from the original note were not included. Subjective Patient ID: Ronny Reeves is a 53 y.o. male who presents for Follow-up (3m /Ulcer- black stool for about a day and half last week). HPI Two Saturdays ago on 09/03/2024 pt reports he had back tarry stools X6-7 occurrences within ONE day. Pt states it stopped after 09/03/2022. Pt reports he went to Urgent Care, he states he was told there that they could not treat a potential GI bleed and advised him to be seen at ER. Pt states he did not report to ER and instead waited to follow up at today's OV. Denies any recurrence of blood in stool since that episode. Denies abdominal pain or distention. Denies blood urine. Denies black pain. Denies taking any iron or eating dark green or leafy vegetables recently before occurrence. Last colonoscopy done 12/2023. Will refer patient to GI. Review of Systems Constitutional: Negative for activity change, appetite change, chills, diaphoresis, fatigue, fever and unexpected weight change. HENT: Negative for congestion, ear pain, rhinorrhea, sinus pressure, sinus pain, sneezing, sore throat, trouble swallowing and voice change. Eyes: Negative for visual disturbance. Respiratory: Negative for cough, chest tightness, shortness of breath and wheezing. Cardiovascular: Negative for chest pain, palpitations and leg swelling. Gastrointestinal: Positive for blood in stool. Negative for abdominal distention, abdominal pain, constipation, diarrhea and vomiting. Genitourinary: Negative for decreased urine volume, dysuria, flank pain, frequency, hematuria and urgency. Musculoskeletal: Negative for arthralgias, gait problem, joint swelling and myalgias. Skin: Negative for rash. Neurological: Negative for dizziness, tremors, syncope, weakness, light-headedness and headaches. Psychiatric/Behavioral: Negative for decreased concentration and suicidal ideas. The patient is not nervous/anxious. Hematological: Does not bruise/bleed easily. Endocrine: Negative for cold intolerance, heat intolerance, polydipsia, polyphagia and polyuria. Objective Physical Exam Vitals reviewed. Constitutional: Appearance: Normal appearance. HENT: Right Ear: Tympanic membrane normal. Left Ear: Tympanic membrane normal. Nose: Nose normal. Mouth/Throat: Mouth: Mucous membranes are moist. Pharynx: Oropharynx is clear. Eyes: Pupils: Pupils are equal, round, and reactive to light. Cardiovascular: Rate and Rhythm: Normal rate and regular rhythm. Pulses: Normal pulses. Heart sounds: Normal heart sounds. Pulmonary: Effort: Pulmonary effort is normal. Breath sounds: Normal breath sounds. Abdominal: General: Abdomen is flat. Bowel sounds are normal. Palpations: Abdomen is soft. Skin: Capillary Refill: Capillary refill takes less than 2 seconds. Neurological: Mental Status: He is alert and oriented to person, place, and time. Assessment/Plan Problem List Items Addressed This Visit Occult blood in stools - Primary Pt reports he had back tarry stools [...] report immediately to ER. Pt verbalized understanding. Relevant Orders Ambulatory referral to Gastroenterology CBC and differential Vitamin B12 Ferritin Iron + transferrin + TIBC documented in this encounter [facility] 09-20-2024 Instructions Jayson Carcamo NP - 09/20/2024 3:00 PM EST Have lab work and occult stool done. Referral sent to GI- Dr. Bashir, they will call you! If dark tarry stools occurs again or if you develop bright red blood per rectum report immediately to ER Immediately!!! documented in this encounter [facility] 06-29-2024 History of Presen t illness Narrative Images from the original note were not included. Chief Complaint Patient presents with primary insomnia Subjective Ronny Reeves, 53 y.o., male here for follow up Patient states that he stopped the Ambien as directed an started Lunesta. He is taking Melatonin at dinner. He states that the Lunesta is helping him sleep better. He states that he remembers his dreams now. He is sleeping 7 hours a night now. He is still waking up in the middle of the night but is able to go back to sleep. His dog as also been waking him up some. He states that he has cut back on the twisted tea and soda. He drinks on the weekend and states that he only drinks 2 sodas during the week. He is shutting the TV off when sleeping now. He is still using hemp oil. He works day shift. He used to flip around a lot. 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 Today he is a little tired but lately he has been overall doing well. HE does not have a bed partner. When he was he would snore when he was really tired. He is feeling better. He also feel better with his joints and inflammation. He wants to hold on a sleep study . He went to the gym twice did it so he has not been back. Past Medical History: Diagnosis Date Back pain Chronic constipation Chronic neck and back pain Contact dermatitis due to poison carolyn Depression (CMS/HCC) Elevated blood pressure reading without diagnosis of hypertension Episodic circadian rhythm sleep disorder, shift work type Erectile dysfunction Hemorrhoid Hypertension (CMS/HCC) Insomnia Lower back pain Mild intermittent asthma (CMS/HCC) Neck pain Otitis media Situational anxiety Sleep disorder, circadian Past Surgical History: Procedure Laterality Date HEMORRHOID SURGERY VASECTOMY 2006 Family History Problem Relation Name Age of Onset Lung disease Mother Cancer Father Diabetes Father Pancreatic cancer Father Other (Pancreatic Cancer) Father Hypertension Brother Diabetes Son Other (Liver transplant) Son Social History Tobacco Use Smoking status: Never Passive exposure: Never Smokeless tobacco: Never Substance Use Topics Alcohol use: Yes Alcohol/week: 6.0 standard drinks of alcohol Types: 6 Standard drinks or equivalent per week Allergies: Patient has no known allergies. General: No fever or chills HEENT: No nasal congestion or runny nose Pulmonary: No shortness of breath or cough Cardiovascular: No chest pain or palpitations GI: No nausea or vomiting : No dysuria or hematuria Musculoskeletal: No new aches or pains or muscle weakness Infectious: no recurrent fevers or infections Dermatologic: No rashes or skin lesions Neurologic: No new headaches or dizziness Vitals: 10/16/24 1622 BP: 138/90 Pulse: 76 SpO2: 96% Body mass index is 22.47 kg/m . weight: 135 lb Neurologic exam: General: Normal body habitus, cooperative, pleasant Mental status: Awake, alert to person, place and time. Recent and remote memory are intact. Attention and concentration are normal. Fund of knowledge is appropriate for level of education. HEENT: NC/AT Patient has Mallampati of proximally 3 but a narrow oropharyngeal opening. Cranial nerves: CN II: Visual fuller full to confrontation. No loss of vision CN III, IV, : pupils equal round and reactive to light. Extraocular movements intact. No ptosis present. CN V: Facial sensation is normal. CN VII: Full and symmetric facial movement. CN VIII: Hearing is normal CN IX and X: Palate elevates symmetrically. CN XI: Shoulder shrug is normal bilaterally. CN XII: Tongue is midline without atrophy or fasciculation. Speech: Clear and fluent no aphasia or dysarthria Pronator drift: Negative bilateral upper extremity Coordination: Intact, no signs of dysmetria Good finger to nose and rapid alternating movements Sensory: Sensation is intact to light, temperature and vibratory touch throughout four extremities. Motor: LUE 5/5 RUE 5/5 LLE 5/5 RLE 5/5 Tone: Physiologic, no tremor, bradykinesia or rigidity DTR: Bilateral Biceps 2/4 Bilateral BR 2/4 Bilateral Patellar 2/4 No spasticity Gait: Normal to casual gait Romberg's Negative Review and summary of old records: Assessment/Plan Diagnoses and all orders for this visit: Hypersomnia Primary insomnia Shift work sleep disorder Inadequate sleep hygiene 53-year-old male with poor sleep and daytime hypersomnia that is multifactorial. He appears to have a sleep onset and sleep maintenance insomnia. He is on Ambien CR however he is cutting the pill and crushing it therefore the CR component is null and void. He needs to stop doing that as it is dangerous. He was adding some Benadryl but stopped doing that. He is now using the Lunesta instead of the Ambien and this seems to work a little bit better for him. He is also adding in a hemp type of oil product. He is sleeping better than he was. He is keeping a more consistent schedule not flipping his schedule around at work which is helping. Needs to work on some sleep hygiene. He has decreased his alcohol consumption. He has turned the TV off at night. These have all made an improvement. We could potentially add in sublingual Ambien in the middle of the night if needed. He still could exercise more which would help with his stress. He is definitely feeling better during the day. He wants to hold on a sleep study right now as he is feeling better than he was previously and wants to continue to work on sleep hygiene and continue the Lunesta and melatonin and hemp oil. We Can consider switching him to a BIJU medication. Plan Continue the Lunesta 3 mg 1 about 30 minutes before bedtime Controlled substance agreement form signed OARRS Was reviewed and is as expected Stopped drinking alcohol on a daily basis and should not mix with sleep medication regardless - he has significantly decrease this On sleep hygiene and keep set sleep schedule Increase exercise and see if that helps with the stress reliever and with his sleep He wants to hold On a sleep study right now as he is feeling better The diagnosis was all discussed with the patient. All questions were answered and they agreed with the treatment plan. Patient will call if there are any new issues or questions. Pt has been fully educated on their diagnosis, treatment options, follow up plan, and return instructions Return to clinic: 4 weeks documented in this encounter [facility] 06-14-2024 History of Presen t illness Narrative Associated Problem(s): Essential hypertension ([facility]) Currently taking no medications; Pt was prescribed [...] log back with them to next visit. Associated Problem(s): Insomnia Went to see Dr. Fofana- was started on Lunesta; States he is now getting REM sleep. Feels much better. States he is having better BM's and urinating better; States he is gaining weight, has slowed down on drinking; Feels significantly better overall. Follows up again on 06/[address] Fofana Images from the original note were not included. Subjective Patient ID: Ronny Reeves is a 53 y.o. male who presents for Follow-up. HPI Insomnia: Went to see Dr. Fofana- was started on Lunesta; States he is now getting REM sleep. Feels much better. States he is having better BM's and urinating better; States he is gaining weight, has slowed down on drinking; Feels significantly better overall. Follows up again on 06/29 HTN: Currently taking no medications; Pt was prescribed [...] log back with them to next visit. Review of Systems Constitutional: Negative for activity change, appetite change, chills, diaphoresis, fatigue, fever and unexpected weight change. HENT: Negative for congestion, ear pain, rhinorrhea, sinus pressure, sinus pain, sneezing, sore throat, trouble swallowing and voice change. Eyes: Negative for visual disturbance. Respiratory: Negative for cough, chest tightness, shortness of breath and wheezing. Cardiovascular: Negative for chest pain, palpitations and leg swelling. Gastrointestinal: Negative for abdominal distention, abdominal pain, blood in stool, constipation, diarrhea and vomiting. Genitourinary: Negative for decreased urine volume, dysuria, flank pain, frequency, hematuria and urgency. Musculoskeletal: Negative for arthralgias, gait problem, joint swelling and myalgias. Skin: Negative for rash. Neurological: Negative for dizziness, tremors, syncope, weakness, light-headedness and headaches. Psychiatric/Behavioral: Negative for decreased concentration and suicidal ideas. The patient is not nervous/anxious. Hematological: Does not bruise/bleed easily. Endocrine: Negative for cold intolerance, heat intolerance, polydipsia, polyphagia and polyuria. Objective Physical Exam Vitals reviewed. Constitutional: Appearance: Normal appearance. HENT: Head: Normocephalic and atraumatic. Right Ear: Tympanic membrane normal. Left Ear: Tympanic membrane normal. Nose: Nose normal. Mouth/Throat: Mouth: Mucous membranes are moist. Pharynx: Oropharynx is clear. Eyes: Pupils: Pupils are equal, round, and reactive to light. Cardiovascular: Rate and Rhythm: Normal rate and regular rhythm. Pulses: Normal pulses. Heart sounds: Normal heart sounds. Pulmonary: Effort: Pulmonary effort is normal. Breath sounds: Normal breath sounds. Abdominal: General: Abdomen is flat. Bowel sounds are normal. Palpations: Abdomen is soft. Musculoskeletal: General: Normal range of motion. Cervical back: Normal range of motion. Skin: General: Skin is warm and dry. Capillary Refill: Capillary refill takes less than 2 seconds. Neurological: General: No focal deficit present. Mental Status: He is alert and oriented to person, place, and time. Psychiatric: Mood and Affect: Mood normal. Behavior: Behavior normal. Assessment/Plan Problem List Items Addressed This Visit Essential hypertension (CMS/HCC) - Primary Currently taking no medications; Pt was prescribed [...] log back with them to next visit. Insomnia Went to see Dr. Fofana- was started on Lunesta; States he is now getting REM sleep. Feels much better. States he is having better BM's and urinating better; States he is gaining weight, has slowed down on drinking; Feels significantly better overall. Follows up again on 06/[address] Fofana documented in this encounter [facility] 06-14-2024 Instructions Jayson Carcamo NP - 06/14/2024 3:00 PM EDT Labs look good! Keep up the good work!!! Keep taking Probiotics (Lactobacillus, Bifidobacterium, Acidophilus, etc.) documented in this encounter [facility] 06-01-2024 History of Presen t illness Narrative Images from the original note were not included. Chief Complaint Patient presents with Insomnia Subjective Ronny Reeves, 53 y.o., male being seen in Neurology consultation at the request of Dr. Sarabia and Jayson Carcamo. The patient is here for sleep evaluation. He states that he takes Ambien, benadryl, and THC for insomnia. He has missed work due to being too tired to go to work. He has nights where he doesn't sleep at all. He states that he will average about 5 hours of sleep a night that is broken. He wakes up and takes the other half of his Ambien. He takes half before he goes to bed and between 3-4am he will wake up and take the other half. He states that he drinks 3-4 twisted teas per day 6 days a week. He has cut this back to 3 days a week now. He has been gradually cutting back on that. He states that he has increased stress as he is going through a divorce. He was for 32 years. He is not getting much exercise. He works day shift. He used to flip around a lot. 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 He goes to bed around 10-11 pm. It can be hard to fall asleep. He has to get up around 5:30 for his day. He has been on Ambien for about 20 years ago. He was typically an 8 hour a night sleeper. He was lifting weights a lot and got into steroids for about 4 years and that may have disrupted his sleep. He has not been on them for a while. He does not use tobacco. He states that he had an episode of nausea and anxiety and his stool was yellow. He had his liver checked and all came back normal. Patient Symptoms Snores: Yes Wakes gasping for breath: No Dozes off if inactive: Yes Dozes off with activity: No Wakes a lot through the night: Yes Witnessed episodes of apnea: No Is sleep restful or restorative: No Bedtime: 10 pm Is it hard or easy to fall asleep: Both Takes naps: Yes, daily for 10-15 minutes Feels better after napping: Yes Sleepwalk: Yes when taking Ambien Sleeptalk: Yes nothing recently Vivid Dreams: No Acts out dreams: No Sleep related hallucinations: No Sleep paralysis: Yes Cataplexy: No Restless Leg: No Kicking/Jerking at night: No TV on while sleeping: No Smoke before bed: No Caffeine within 3 hours before bed: No Past Medical History: Diagnosis Date Back pain Chronic constipation Chronic neck and back pain Contact dermatitis due to poison carolyn Depression (CMS/HCC) Elevated blood pressure reading without diagnosis of hypertension Episodic circadian rhythm sleep disorder, shift work type Erectile dysfunction Hemorrhoid Hypertension (CMS/HCC) Insomnia Lower back pain Mild intermittent asthma (CMS/HCC) Neck pain Otitis media Situational anxiety Sleep disorder, circadian Past Surgical History: Procedure Laterality Date HEMORRHOID SURGERY VASECTOMY 2007 Family History Problem Relation Name Age of Onset Lung disease Mother Cancer Father Diabetes Father Pancreatic cancer Father Other (Pancreatic Cancer) Father Hypertension Brother Diabetes Son Other (Liver transplant) Son Social History Tobacco Use Smoking status: Never Passive exposure: Never Smokeless tobacco: Never Substance Use Topics Alcohol use: Yes Alcohol/week: 6.0 standard drinks of alcohol Types: 6 Standard drinks or equivalent per week Allergies: Patient has no known allergies. General: No fever or chills HEENT: No nasal congestion or runny nose Pulmonary: No shortness of breath or cough Cardiovascular: No chest pain or palpitations GI: No nausea or vomiting : No dysuria or hematuria Musculoskeletal: No new aches or pains or muscle weakness Infectious: no recurrent fevers or infections Dermatologic: No rashes or skin lesions Neurologic: No new headaches or dizziness Vitals: 06/01/24 1639 BP: 154/82 Pulse: 86 SpO2: 97% Body mass index is 21.63 kg/m . weight: 130 lb Neurologic exam: General: Normal body habitus, cooperative, pleasant Mental status: Awake, alert to person, place and time. Recent and remote memory are intact. Attention and concentration are normal. Fund of knowledge is appropriate for level of education. HEENT: NC/AT Patient has Mallampati of proximally 3 but a narrow oropharyngeal opening. Cranial nerves: CN II: Visual fuller full to confrontation. No loss of vision CN III, IV, : pupils equal round and reactive to light. Extraocular movements intact. No ptosis present. CN V: Facial sensation is normal. CN VII: Full and symmetric facial movement. CN VIII: Hearing is normal CN IX and X: Palate elevates symmetrically. CN XI: Shoulder shrug is normal bilaterally. CN XII: Tongue is midline without atrophy or fasciculation. Speech: Clear and fluent no aphasia or dysarthria Pronator drift: Negative bilateral upper extremity Coordination: Intact, no signs of dysmetria Good finger to nose and rapid alternating movements Sensory: Sensation is intact to light, temperature and vibratory touch throughout four extremities. Pinprick intact in all four extremities. Motor: LUE 5/5 RUE 5/5 LLE 5/5 RLE 5/5 Tone: Physiologic, no tremor, bradykinesia or rigidity DTR: Bilateral Biceps 2/4 Bilateral BR 2/4 Bilateral Patellar 2/4 No spasticity Gait: Normal to casual gait Romberg's Negative Review and summary of old records: Assessment/Plan Diagnoses and all orders for this visit: Primary insomnia - eszopiclone (Lunesta) 3 MG tablet; Take 1 tablet (3 mg) by mouth at bedtime Take immediately before bedtime Hypersomnia Sleep disturbance Alcohol use disorder 53-year-old male with poor sleep. This appears to be multifactorial. He appears to have a sleep onset and sleep maintenance insomnia. He is on Ambien CR however he is cutting the pill and crushing it therefore the CR component is no and void. He is taking part of it before bed and then part of it in the middle of the night. He is adding some Benadryl and a hemp type of oil product. He is still not sleeping well. I would like to change his medication and see if maybe Lunesta would work better for him. This is a longer-acting medication and may help with the sleep onset and sleep maintenance but not make him as sleepy the next morning. We could potentially add in sublingual Ambien in the middle of the night if needed. Patient also is drinking alcohol daily and that can fragment sleep and cause people to wake up in the middle of the night. He needs to stop drinking alcohol. He is going through divorce so he is using it as a stress reliever. He was counseled to maybe use exercise as a stress reliever and that may help better with his sleep. He may benefit from a polysomnogram to assess for things like periodic limb movement disorder however we need to get him sleeping 1st. I do suspect some of this is also psychological in the fact that he went away and slept fairly well on bed in a tent when he was out of the home setting. Can consider switching him to a BIJU medication. Plan DC the Ambien CR as he is not taking it appropriately anyway Switched to Lunesta 3 mg 1 about 30 minutes before bedtime Controlled substance agreement form signed [place] Was reviewed and is as expected Stopped drinking alcohol on a daily basis and should not mix with sleep medication regardless Sleep hand out given He can try some melatonin but at dinnertime to help initiate his sleep clock better. He tried it at bedtime and it was not helpful which many times it is not. Increase exercise and see if that helps with the stress reliever and with his sleep We will order a sleep study once we know he is sleeping better if still needed to rule out things like periodic limb movement disorder The diagnosis was all discussed with the patient. All questions were answered and they agreed with the treatment plan. Patient will call if there are any new issues or questions. Pt has been fully educated on their diagnosis, treatment options, follow up plan, and return instructions Return to clinic: 4 weeks documented in this encounter [facility] 05-30-2024 Telephone encounter Note Pt called requesting a blood test for Liver. He said he has had yellow foamy stool, metal taste in mouth, anxiety, nausea and indigestion. He is concerned because his father had Pancreatic Cancer. So he is asking for testing. Sleeve Maker recommended he schedule an appt but he said the soonest he could get in was two weeks out. Please advise -SCR [facility] 05-30-2024 Miscellaneous Notes Pt called requesting a blood test for Liver. He said he has had yellow foamy stool, metal taste in mouth, anxiety, nausea and indigestion. He is concerned because his father had Pancreatic Cancer. So he is asking for testing. Sleeve Maker recommended he schedule an appt but he said the soonest he could get in was two weeks out. Please advise -SCR documented in this encounter [facility] 05-12-2024 History of Presen t illness Narrative Associated Problem(s): Moderate persistent asthma without complication (CMS/HCC) Only using rescue inhaler (Albuterol) Stopped Advair. Didn't think he needed it. Feels symptoms are well controlled currently. Mod-severe obstructive lung disease with positive bronchodilator response on PFTS 08/04 Associated Problem(s): Insomnia Currently taking Ambien; Would like to discontinue but is concerned about sleep habits. Requests to see sleep medicine. Referral sent. Associated Problem(s): Acute deep vein thrombosis of left popliteal vein (CMS/HCC) Diagnosed 01/07/24 On Eliquis , provoked. Will need rx for a minimum of 3 months. Stopped using Eliquis all together. Did not complete ultrasound, declines interest Reiterated/educated patient on the importance of using Eliquis and completing imaging studies as prescribed. Images from the original note were not included. Subjective Patient ID: Ronny Reeves is a 53 y.o. male who presents for Follow-up. HPI Currently taking Amlodipine 10mg Checks BP at home; Averages are 140's Denies orthostatic changes, dizziness, cough, shortness of breath, swelling in extremities. Continue current regimen. Asthma: Only using rescue inhaler (Albuterol) Stopped Advair. Didn't think he needed it. Feels symptoms are well controlled currently. Stopped Eliquis. Declines going back on regimen. Lumbar back pain- No longer seeing pain management. Opted against injections. Stopped all pharmacological interventions. Feels is well controlled at this time. Review of Systems Constitutional: Negative for activity change, appetite change, chills, diaphoresis, fatigue, fever and unexpected weight change. HENT: Positive for tinnitus. Negative for congestion, ear pain, rhinorrhea, sinus pressure, sinus pain, sneezing, sore throat, trouble swallowing and voice change. Eyes: Negative for visual disturbance. Respiratory: Negative for cough, chest tightness, shortness of breath and wheezing. Cardiovascular: Negative for chest pain, palpitations and leg swelling. Gastrointestinal: Negative for abdominal distention, abdominal pain, blood in stool, constipation, diarrhea and vomiting. Genitourinary: Negative for decreased urine volume, dysuria, flank pain, frequency, hematuria and urgency. Musculoskeletal: Negative for arthralgias, gait problem, joint swelling and myalgias. Skin: Negative for rash. Neurological: Negative for dizziness, tremors, syncope, weakness, light-headedness and headaches. Psychiatric/Behavioral: Negative for decreased concentration and suicidal ideas. The patient is nervous/anxious. Hematological: Does not bruise/bleed easily. Endocrine: Negative for cold intolerance, heat intolerance, polydipsia, polyphagia and polyuria. Objective Physical Exam Vitals reviewed. Constitutional: Appearance: Normal appearance. HENT: Head: Normocephalic and atraumatic. Right Ear: Tympanic membrane normal. Left Ear: Tympanic membrane is erythematous. Nose: Nose normal. Mouth/Throat: Mouth: Mucous membranes are moist. Pharynx: Oropharynx is clear. Eyes: Pupils: Pupils are equal, round, and reactive to light. Cardiovascular: Rate and Rhythm: Normal rate and regular rhythm. Pulses: Normal pulses. Heart sounds: Normal heart sounds. Pulmonary: Effort: Pulmonary effort is normal. Breath sounds: Normal breath sounds. Abdominal: General: Abdomen is flat. Bowel sounds are normal. Palpations: Abdomen is soft. Musculoskeletal: General: Normal range of motion. Cervical back: Normal range of motion. Skin: General: Skin is warm and dry. Capillary Refill: Capillary refill takes less than 2 seconds. Neurological: General: No focal deficit present. Mental Status: He is alert and oriented to person, place, and time. Psychiatric: Mood and Affect: Mood normal. Behavior: Behavior normal. Assessment/Plan Problem List Items Addressed This Visit Essential hypertension (CMS/HCC) Relevant Orders CBC and differential Comprehensive metabolic panel Insomnia Currently taking Ambien; Would like to discontinue but is concerned about sleep habits. Requests to see sleep medicine. Referral sent. Relevant Orders Ambulatory referral to Neurology Moderate persistent asthma without complication (CMS/HCC) - Primary Only using rescue inhaler (Albuterol) Stopped Advair. Didn't think he needed it. Feels symptoms are well controlled currently. Mod-severe obstructive lung disease with positive bronchodilator response on PFTS 08/04 Acute deep vein thrombosis of left popliteal vein ([facility]/HCC) Diagnosed 01/07/24 On Eliquis , provoked. Will need rx for a minimum of 3 months. Stopped using Eliquis all together. Did not complete ultrasound, declines interest Reiterated/educated patient on the importance of using Eliquis and completing imaging studies as prescribed. Other Visit Diagnoses Non-recurrent acute suppurative otitis media of left ear without spontaneous rupture of tympanic membrane Relevant Medications amoxicillin-clavulanate (Augmentin) 875-125 MG tablet documented in this encounter [facility] 05-12-2024 Instructions Jayson Carcamo NP - 05/12/2024 3:30 PM EDT Your blood pressure is GOOD in the office today. Check your blood pressure at home 3 times per week, preferably in the afternoon. Goal <130/90. Record results in blood pressure log. Bring back with you to your next visit. Referral sent to Sleep Lab- Dr. Fofana; they will call you! START and Finish Augmentin for 10 days for ear infection. Call if you need anything! documented in this encounter [facility] 03-01-2024 History of Presen t illness Narrative [facility] [address] [place] [address] Patient: Ronny Reeves Sex: male : 1970 Age: 53 y.o. PCP: SHAIKH MCKINLEY MD 03/01/2024 Ronny Reeves is here for a(n) follow up. Left L3, 4 nerve root scheduled for 01/15/2024 was canceled due to patient developing a LLE DVT. Today he reports his pain is in his lumbar and left buttock. Pain in leg has subsided. Patient had been taking Gabapentin and IBU however he has stopped taking this medication since previous office visit. Patient to continue with physical therapy and follow up with Dr. Delaney as previously planned. Patient states he completed 5-6 additional PT sessions approximately 3 weeks ago which helped significantly with his left hip and sciatic pain. Patient did not see Dr. Delaney but consulted with Dr. Ocasio at [facility] instead. Per patient Dr. Ocasio recommends interventional pain injections. Chief Complaint Patient presents with Back Pain HPI: Physical therapy started 12/25/2023 at [facility] in [place] has completed two visits which increases pain Chiropractor visits with no relief Back Pain This is a chronic problem. Episode onset: years approx since 2003. Episode frequency: intermittently. The problem is unchanged. The pain is present in the lumbar spine and gluteal. The quality of the pain is described as stabbing, aching, shooting, cramping and burning (left). The pain does not radiate. The pain is at a severity of 2/10 (pain up to 6-7/10). The pain is severe. The pain is Worse during the day (depends on what patient is doing). Exacerbated by: standing, walking, stairs, lifting. Stiffness is present: vary. Pertinent negatives include no chest pain, fever, leg pain, numbness, tingling or weakness. Treatments tried: robaxin, oxycodone, norco with no relief; ibuprofen with minimal relief; gabapentin with moderate relief; prednisone, heat, ice with significant relief. The effect of pain on patient's ADLS: Mild Impairment. Past Medical History: Diagnosis Date Acute bilateral low back pain with right-sided sciatica 10/05/2023 Last Assessment & Plan: Acute low back [...] previous visit. He is doing better than be Alcohol use disorder 08/31/2023 Last Assessment & Plan: Patient reports excessively drinking alcohol. Drinks hard liquor almost on a daily basis. Patient counseled on harmful effects of excessive alcohol intake. Patient educated on behavioral and therapeutic options available for alcohol use disorder. Questions/concerns related to those options were addressed and Anxiety 11/04/2023 Last Assessment & Plan: Anxiety - due to recent personal/marital conflict. Going through divorce and it has affected his mental health. Denies mild depressive symptoms every now and then along with anxiety. His symptoms are gradually improving and he would prefer to avoid medications at this time. Asthma 12/29/2023 BPH with urinary obstruction 12/29/2023 Essential hypertension 08/24/2012 Last Assessment & Plan: Well controlled on Amlodipine but elevated today. This could be due to pain also as he seems really uncomfortable and in pain Monitor for now. No changes made. GERD (gastroesophageal reflux disease) Glands swollen Hearing deficit High blood pressure History of stress test HNP (herniated nucleus pulposus), lumbar 12/24/2023 Last Assessment & Plan: Reviewed in detail [...] days and 20mg for 2 days).-this was d Hydronephrosis 12/29/2023 Intermittent palpitations 08/31/2023 Last Assessment & Plan: Reports one hx of palpitations, associated lightheadedness, felt clammy and weak, while at work. Denies CP, SOB. His BP was 148/92. Symptoms lasted for the whole day. No prior hx of similar episode. Patient has hx of HTN - does not take his meds regularly. He is also going through a difficult time in Joint pain Left hip pain Low back pain Moderate persistent asthma without complication 08/31/2023 Last Assessment & Plan: Mod-severe obstructive lung disease with positive bronchodilator response on PFTS 08/04 Using breo-ellipta for it. Changed to advair due to formulary and cost of medication. Has not picked up yet. Well controlled. Has not needed rescue inhaler in a while Neck pain Numbness Upper back pain Weakness Past Surgical History: Procedure Laterality Date ANUS SURGERY 2010 KIDNEY STONE SURGERY 2022 NOSE SURGERY RECTAL SURGERY 2010 No Known Allergies No family history on file. Social History Socioeconomic History Marital status: Unknown Spouse name: Not on file Number of children: Not on file Years of education: Not on file Highest education level: Not on file Occupational History Not on file Tobacco Use Smoking status: Never Smokeless tobacco: Never Substance and Sexual Activity Alcohol use: Yes Alcohol/week: 8.0 standard drinks of alcohol Types: 8 Cans of beer per week Drug use: Not on file Sexual activity: Not on file Other Topics Concern Not on file Social History Narrative Not on file Social Determinants of Health Financial Resource Strain: High Risk (12/24/2023) Received from [facility] Overall Financial Resource Strain (CARDIA) Difficulty of Paying Living Expenses: Very hard Food Insecurity: No Food Insecurity (12/29/2023) Hunger Screening Food Insecurity - Worry: Never True Food Insecurity - Inability: Never True Recent Concern: Food Insecurity - Food Insecurity Present (12/24/2023) Received from [facility] Hunger Vital Sign Worried About Running Out of Food in the Last Year: Sometimes true Ran Out of Food in the Last Year: Patient declined Transportation Needs: Patient Declined (12/24/2023) Received from [facility] PRAPARE - Transportation Lack of Transportation (Medical): Patient declined Lack of Transportation (Non-Medical): Patient declined Physical Activity: Inactive (12/24/2023) Received from [facility] Exercise Vital Sign Days of Exercise per Week: 0 days Minutes of Exercise per Session: 0 min Stress: Stress Concern Present (12/24/2023) Received from [facility] [place] [employer] - Occupational Stress Questionnaire Feeling of Stress : Very much Social Connections: Unknown (12/24/2023) Received from [facility] Social Connection and Isolation Panel [NHANES] Frequency of Communication with Friends and Family: Twice a week Frequency of Social Gatherings with Friends and Family: Twice a week Attends Jehov[employer] Witness Services: Not on file Active Member of Clubs or Organizations: Patient declined Attends Club or Organization Meetings: Patient declined Marital Status: Interpersonal Safety: Unknown (12/29/2023) Received from [facility] Safety & Environment Fear of Current or Ex-Partner: Not on file Emotionally Abused: Not on file Physically Abused: Not on file Sexually Abused: Not on file Physically or Sexually Abused: Not on file Housing Instability: High Risk (12/24/2023) Received from [facility] Housing Stability Vital Sign Unable to Pay for Housing in the Last Year: Yes Number of Places Lived in the Last Year: 1 Unstable Housing in the Last Year: No Review of Systems Constitutional: Negative for fever. HENT: Negative. Respiratory: Negative. Cardiovascular: Negative for chest pain and leg swelling. Gastrointestinal: Negative. Genitourinary: Negative for frequency and urgency. Musculoskeletal: Positive for back pain. Skin: Positive for rash (lateral aspect of LLE). Neurological: Negative for tingling, weakness and numbness. Psychiatric/Behavioral: Negative. Vital Signs: BP (!) 136/98 Pulse 69 Resp 16 Ht 165.1 cm (5' 5 ) Wt 65.8 kg (145 lb) SpO2 98% BMI 24.13 kg/m Physical Exam: GENERAL - Healthy patient that appears stated age. HEENT - Normocephalic / Atraumatic, Extraoccular movements intact, trachea midline, thyroid within normal limits. CV - pulse regular, Warm extremities with appropriate color of nailbeds. RESP - No obvious wheezing, No Shortness of Breath, No overexertion response to exam maneuvers. COORDINATION - remains intact. PSYCH - Alert and Oriented x4, Attentive and appropriate, constitutionally normal, displays normal mood and affect per situation, answered questions appropriately during examination, demonstrated appropriate attention during discussion, demonstrated appropriate cognitive reasoning and understanding of the medical condition by asking appropriate questions regarding the diagnosis and risks/benefits/alternatives of treatment modalities. No obvious deficits in memory, reasoning, or intellect. Lumbar: SKIN - No rashes or bruising in the area of the patient s pain. LYMPH NODES - demonstrate no obvious enlargement. EXTREMITIES - Lower extremities are warm, with minimal edema and palpable pulses. Tenderness to palpation noted in the lumbar spine and paraspinal musculature. Pain is elicited with flexion, extension, and lateral rotation of the lumbar spine. Range of motion is diminished with these motions due to pain. Facet palpation is noted to be painful and facet loading maneuvers elicit pain that is concordant with the patient s normal pain complaints. Some muscle spasm is noted in the overlying musculature. STRENGTH - noted to be 5 out of 5 all muscle groups bilateral lower extremities including muscles involving hip flexion and abduction, knee flexion and extension, as well as foot dorsiflexion and plantarflexion. No notable atrophy, fasciculations or spasm. SENSORY - No notable sensory deficits in the bilateral lower extremities to touch or pinprick in all dermatomal distributions. Straight Leg Raise is negative bilaterally. Gait is normal. Assessment/Treatment Plan: Ronny was seen today for back pain. Diagnoses and all orders for this visit: Lumbar disc disease with radiculopathy Monitor Follow up 6-12 weeks The medications prescribed have been reviewed for medication interactions/contraindications and/or for upcoming procedures: continue current medication regimen without any changes. DISCUSSION: Treatment options discussed with patient and all questions answered to patient's satisfaction. Discussed the rules and regulations surrounding prescription of opioids and compliance at length. Failure to follow the rules and regulation will result in tapering and discontinuation of medications if applicable. Prescribed medication that requires intensive monitoring for toxicity We do not currently prescribe any controlled substance from this practice. Treatment plans discussed but not opted for at this time: Lumbar nerve root injection. Pain is under adequate control. At this time it does appear that the patient s pain is under adequate control with conservative care. It is felt that we should continue this approach and continue to monitor these symptoms and address them again in the future if they become more problematic. This approach was discussed with the patient and they are in agreement. The spine model was demonstrated and MRI was reviewed and used to explain the condition. Chronic conditions not treated during this visit that affected my overall medical decision making: DVT OARRS: Reviewed. Scribe Statement: Scribed for and in the presence of NISHANT RODRIGUEZ by Hedy Rivera CNA. Provider Statement: I, NISHANT RODRIGUEZ, personally performed the services described in the documentation, as scribed by Hedy Rivera CNA in my presence, and it is both accurate and complete. Hedy Rivera CNA 03/01/24 1419 NISHANT Rodriguez 03/01/24 1551 documented in this encounter [facility] [employer] 02-01-2024 Note HNO ID: [id number] Author: LAKSHMI SOLITARIO MD Service: ? Author Type: Physician Type: [...] BICEPS TRICEPS DELTS Wrist Ext Wrist Flex Gyn Physician HI R 5 5 5 5 5 [...] in spn, dpn, (more content not included)... [facility] 02-01-2024 History of Presen t illness Narrative [...] BICEPS TRICEPS DELTS Wrist Ext Wrist Flex Gyn Physician HI R 5 5 5 5 5 [...] face time was 30 minutes. SIGNATURE: Lakshmi Solitario MD PATIENT NAME: Ronny Reeves DATE: February 01, 2024 TIME: 4:14 PM PAGER: documented in this encounter [facility] 01-19-2024 Miscellaneous Notes Received faxed referral for patient to be seen for Lumbar. Called and spoke to patient who stated has an appointment already set up with [facility]. Scanned referral documented in this encounter [facility] 01-19-2024 Telephone encounter Note Received faxed referral for patient to be seen for Lumbar. Called and spoke to patient who stated has an appointment already set up with [facility]. Scanned referral [facility] 01-11-2024 Miscellaneous Notes Patient called to cancel his procedure for Sunday 01/14. He reports that he has a blood clot and has an appointment with his primary care today. He was informed to let Pain know what specialist he is referred to so that clearance can be obtained before rescheduling. Review of documentation reveals patient has been started on Eliquis due to dvt. Patient does not need to hold Eliquis for nerve root injection. Ok to proceed if patient willing and agreeable. Please let me know if any further questions or concerns. Thanks! documented in this encounter [facility] 01-11-2024 Telephone encounter Note Patient called to cancel his procedure for Sunday 01/14. He reports that he has a blood clot and has an appointment with his primary care today. He was informed to let Pain know what specialist he is referred to so that clearance can be obtained before rescheduling. [facility] 01-11-2024 Telephone encounter Note Review of documentation reveals patient has been started on Eliquis due to dvt. Patient does not need to hold Eliquis for nerve root injection. Ok to proceed if patient willing and agreeable. Please let me know if any further questions or concerns. Thanks! [facility] 01-07-2024 Telephone encounter Note Received call from patient stating apixaban was not covered through patient's insurance. Called and spoke with pharmacist at [id number] [place] [address] - [address] [phone] [place] [address]. [facility] pharmacist stated apixaban starter pack was not in stock and thus they were unable to bill insurance until medication is in stock. However, [facility] pharmacist was able to fill as tablets since the starter pack was not in stock. This [facility] provided $30-day free trial card over the phone, confirmed with [facility] pharmacist that this patient will have $0 copay for initial supply. This [facility] provided $10 copay card over the phone and the [facility] pharmacist entered this under patient's profile for future monthly dispenses so that may copay per month will be $10. This [facility] called and updated patient with $0 initial supply and $10 monthly copay after that. Patient verbalized understanding. Thank you for allowing me to participate in this patient's care. Prince Llamas RPh [facility] 01-07-2024 Miscellaneous Notes Received call from patient stating apixaban was not covered through patient's insurance. Called and spoke with pharmacist at [id number] [place] [address] - [address] [facility] [phone] [facility] [address]. [facility] pharmacist stated apixaban starter pack was not in stock and thus they were unable to bill insurance until medication is in stock. However, [facility] pharmacist was able to fill as tablets since the starter pack was not in stock. This [facility] provided $30-day free trial card over the phone, confirmed with [facility] pharmacist that this patient will have $0 copay for initial supply. This [facility] provided $10 copay card over the phone and the [facility] pharmacist entered this under patient's profile for future monthly dispenses so that may copay per month will be $10. This [facility] called and updated patient with $0 initial supply and $10 monthly copay after that. Patient verbalized understanding. Thank you for allowing me to participate in this patient's care. Prince Llamas RPh documented in this encounter [facility] 01-07-2024 Telephone encounter Note Returned patient's call [...] to home, he will be contacting the [facility] for follow-up. At time of call he [...] All questions answered at time of call. [facility] 01-07-2024 Miscellaneous Notes Returned patient's call regarding [...] to home, he will be contacting the [facility] for follow-up. At time of call he [...] time of call. documented in this encounter [facility] 01-07-2024 Note HNO ID: [id number] Author: DESIRAE GUTIERREZ RDMS, CH[place] Service: ? 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 Author Type: Nurse Practitioner Type: [...] pain to the left leg. Works at [employer] Nonsmoker ETOH - twisted tea's drinking 3 [...] Past medications: Oxycodone HCL 12/07/2023 Physical Therapy: [facility] in [facility] - attended twice - discontinued by PCP due to patient's pain Treating Physicians: Dr. Constantino - PCP Hedy Hughes [facility] - [facility] neurosurgery Julianna Rosario [facility]- [facility] Pain management - left L3,L4 TFESI ordered - scheduled for 01/15/2024 Dr. Collado - Pain management - [facility] Dr. Sen - [facility] Care History of Spine Injections/Surgery: None Other [...] severe depression 20-2 (more content not included)... [place] 01-07-2024 History of Presen t illness Narrative [...] calf redness, pain, and swelling since Thursday and has not sought medical treatment for [...] pain to the left leg. Works at [employer] Nonsmoker ETOH - twisted tea's drinking 3 [...] Oxycodone HCL 12/07/2023 Physical Therapy: T[facility] in [facility] - attended twice - discontinued by PCP due to patient's pain Treating Physicians: Dr. Constantino - PCP Hedy Hughes [facility] - [facility] neurosurgery Juliannarosita Rosario [facility]- [facility] Pain management - left L3,L4 TFESI ordered - scheduled for 01/15/2024 Dr. Collado - Pain management - [facility] health care Dr. Sen - [facility] Health Care History of Spine [...] agreeable. Prior to patient discharge I contacted [place] [facility] at 08:35 a.m. Report was given [...] TIME: 7:49 AM documented in this encounter [facility] 01-04-2024 Telephone encounter Note Attempted to contact patient in regards to upcoming appointment on 01/07/2024. No imaging is available in patient's chart, attempted to leave voicemail requesting patient to bring imaging to his appointment, this attempt was unsuccessful, as patient's voicemail box is full. [facility] 01-04-2024 Miscellaneous Notes Attempted to contact patient in regards to upcoming appointment on 01/07/2024. No imaging is available in patient's chart, attempted to leave voicemail requesting patient to bring imaging to his appointment, this attempt was unsuccessful, as patient's voicemail box is full. documented in this encounter [facility] 12-29-2023 History of Presen t illness Narrative [facility] [address] [place] [address] Patient: Ronny Reeves Sex: male : 1970 Age: 53 y.o. PCP: SHAIKH MCKINLEY MD 12/29/2023 Ronny Reeves is here for a(n) initial consultation for low back pain that he's had for years but with recent incease in pain. He reports he was prescribed Gabapentin which is helping. He has started PT 2 visit which increase his pain. Chief Complaint Patient presents with Back Pain HPI: Physical therapy started 12/25/2023 at [facility] in [place] has completed two visits which increases pain Chiropractor visits with no relief Back Pain This is a chronic problem. Episode onset: years approx since 2003. Episode frequency: constant and intermittently. The problem has been gradually worsening since onset. The pain is present in the lumbar spine. The quality of the pain is described as stabbing, shooting, aching, burning and cramping. Radiates to: left leg to left top foot/toes. Pain scale: 5/10 currently, 10/10 at worse with ADLs. The pain is severe. The pain is Worse during the day (depends on what patient is doing). Exacerbated by: standing, walking, stairs, lifting. Stiffness is present: vary. Associated symptoms include numbness (left leg to foot/toes), tingling (left leg to foot/toes) and weakness (left leg to foot/toes). Pertinent negatives include no fever. Treatments tried: robaxin, oxycodone, norco with no relief; ibuprofen with minimal relief; gabapentin with moderate relief; prednisone, heat, ice with significant relief. The effect of pain on patient's ADLS: Moderate Impairment. Past Medical History: Diagnosis Date Acute bilateral low back pain with right-sided sciatica 10/05/2023 Last Assessment & Plan: Acute low back [...] previous visit. He is doing better than be Alcohol use disorder 08/31/2023 Last Assessment & Plan: Patient reports excessively drinking alcohol. Drinks hard liquor almost on a daily basis. Patient counseled on harmful effects of excessive alcohol intake. Patient educated on behavioral and therapeutic options available for alcohol use disorder. Questions/concerns related to those options were addressed and Anxiety 11/04/2023 Last Assessment & Plan: Anxiety - due to recent personal/marital conflict. Going through divorce and it has affected his mental health. Denies mild depressive symptoms every now and then along with anxiety. His symptoms are gradually improving and he would prefer to avoid medications at this time. Asthma 12/29/2023 BPH with urinary obstruction 12/29/2023 Essential hypertension 08/24/2012 Last Assessment & Plan: Well controlled on Amlodipine but elevated today. This could be due to pain also as he seems really uncomfortable and in pain Monitor for now. No changes made. HNP (herniated nucleus pulposus), lumbar 12/24/2023 Last Assessment & Plan: Reviewed in detail [...] days and 20mg for 2 days).-this was d Hydronephrosis 12/29/2023 Intermittent palpitations 08/31/2023 Last Assessment & Plan: Reports one hx of palpitations, associated lightheadedness, felt clammy and weak, while at work. Denies CP, SOB. His BP was 148/92. Symptoms lasted for the whole day. No prior hx of similar episode. Patient has hx of HTN - does not take his meds regularly. He is also going through a difficult time in Joint pain Left hip pain Low back pain Moderate persistent asthma without complication 08/31/2023 Last Assessment & Plan: Mod-severe obstructive lung disease with positive bronchodilator response on PFTS 08/04 Using breo-ellipta for it. Changed to advair due to formulary and cost of medication. Has not picked up yet. Well controlled. Has not needed rescue inhaler in a while History reviewed. No pertinent surgical history. No Known Allergies History reviewed. No pertinent family history. Social History Socioeconomic History Marital status: Unknown Spouse name: Not on file Number of children: Not on file Years of education: Not on file Highest education level: Not on file Occupational History Not on file Tobacco Use Smoking status: Not on file Smokeless tobacco: Not on file Substance and Sexual Activity Alcohol use: Not on file Drug use: Not on file Sexual activity: Not on file Other Topics Concern Not on file Social History Narrative Not on file Social Determinants of Health Financial Resource Strain: High Risk (12/24/2023) Received from [facility] Overall Financial Resource Strain (CARDIA) Difficulty of Paying Living Expenses: Very hard Food Insecurity: No Food Insecurity (12/29/2023) Hunger Screening Food Insecurity - Worry: Never True Food Insecurity - Inability: Never True Recent Concern: Food Insecurity - Food Insecurity Present (12/24/2023) Received from [facility] Hunger Vital Sign Worried About Running Out of Food in the Last Year: Sometimes true Ran Out of Food in the Last Year: Patient declined Transportation Needs: Patient Declined (12/24/2023) Received from [facility] PRAPARE - Transportation Lack of Transportation (Medical): Patient declined Lack of Transportation (Non-Medical): Patient declined Physical Activity: Inactive (12/24/2023) Received from [facility] Exercise Vital Sign Days of Exercise per Week: 0 days Minutes of Exercise per Session: 0 min Stress: Stress Concern Present (12/24/2023) Received from [facility] [place] [employer] - Occupational Stress Questionnaire Feeling of Stress : Very much Social Connections: Unknown (12/24/2023) Received from [facility] Social Connection and Isolation Panel [NHANES] Frequency of Communication with Friends and Family: Twice a week Frequency of Social Gatherings with Friends and Family: Twice a week Attends Jehovah'[employer] Witness Services: Not on file Active Member of Clubs or Organizations: Patient declined Attends Club or Organization Meetings: Patient declined Marital Status: Interpersonal Safety: Not on file Housing Instability: High Risk (12/24/2023) Received from [facility] Housing Stability Vital Sign Unable to Pay for Housing in the Last Year: Yes Number of Places Lived in the Last Year: 1 In the last 12 months, was there a time when you did not have a steady place to sleep or slept in a snf (including now)?: No Review of Systems Constitutional: Negative. Negative for chills, fatigue and fever. HENT: Negative. Eyes: Negative. Respiratory: Negative. Negative for cough and shortness of breath. Cardiovascular: Negative. Gastrointestinal: Negative. Endocrine: Negative. Genitourinary: Negative. Musculoskeletal: Positive for back pain. Allergic/Immunologic: Negative. Neurological: Positive for tingling (left leg to foot/toes), weakness (left leg to foot/toes) and numbness (left leg to foot/toes). Hematological: Negative. Psychiatric/Behavioral: Negative. Vital Signs: BP (!) 142/96 (BP Site: Left Arm, BP Postition: Sitting) Pulse 74 Resp 20 Ht 165.1 cm (5' 5 ) Wt 63 kg (139 lb) BMI 23.13 kg/m Physical Exam: GENERAL - Healthy patient that appears stated age. HEENT - Normocephalic / Atraumatic, Extraoccular movements intact, trachea midline, thyroid within normal limits. CV - pulse regular, Warm extremities with appropriate color of nailbeds. RESP - No obvious wheezing, No Shortness of Breath, No overexertion response to exam maneuvers. COORDINATION - remains intact. PSYCH - Alert and Oriented x4, Attentive and appropriate, constitutionally normal, displays normal mood and affect per situation, answered questions appropriately during examination, demonstrated appropriate attention during discussion, demonstrated appropriate cognitive reasoning and understanding of the medical condition by asking appropriate questions regarding the diagnosis and risks/benefits/alternatives of treatment modalities. No obvious deficits in memory, reasoning, or intellect. Lumbar: SKIN - No rashes or bruising in the area of the patient s pain. LYMPH NODES - demonstrate no obvious enlargement. EXTREMITIES - Lower extremities are warm, with minimal edema and palpable pulses. Tenderness to palpation noted in the lumbar spine and paraspinal musculature. Pain is elicited with flexion, extension, and lateral rotation of the lumbar spine. Range of motion is diminished with these motions due to pain. Facet palpation is noted to be somewhat tender and facet loading maneuvers are mildly positive, but not concordant with the patient s normal pain complaints. STRENGTH - noted to be 5 out of 5 all muscle groups bilateral lower extremities including muscles involving hip flexion and abduction, knee flexion and extension, as well as foot dorsiflexion and plantarflexion. No notable atrophy, fasciculations or spasm. SENSORY - No notable sensory deficits in the bilateral lower extremities to touch or pinprick in all dermatomal distributions with exception to increased sensation in the Left L3 and L4 levels. Straight Leg Raise is negative. Gait is normal and assisted with ambulatory aid(s): Walker. Assessment/Treatment Plan: Ronny was seen today for back pain. Diagnoses and all orders for this visit: Lumbar disc disease with radiculopathy - Case request operating room: INJECTION SPINE TRANSFORAMINAL LEFT L3, L4 NERVE ROOT Left L3, 4 Nerve Root Injection - under fluoroscopy with the use of contrast dye (unless contraindicated) It is hopeful that the described procedure will provide symptomatic pain relief. It is felt to be medically necessary noting that the patient has tried and failed more conservative modalities of therapy and this is the next most appropriate step. The procedure was described in detail to the patient as well as the potential benefits of pain reduction alongside risks of the procedure and alternatives. Risks were described as including, but not limited to bleeding, infection, nerve damage, spinal cord injury, paralysis, stroke, dural puncture headache, and medication reaction. The patient expressed understanding regarding the risks and benefits and wishes to proceed. It was explained that Nerve Root Injections and Transforaminal Epidural Injections often require a series of 2-3 before significant relief is noted, but we will determine after each injection if another one is indicated. Depending on the amount and duration of relief obtained from the injection, additional modalities of therapy including medications and physical therapy may need to be utilized alongside or following the injections. Follow up 2 weeks after procedure The medications I have prescribed have been reviewed for medication interactions/contraindications and/or for upcoming procedures: continue current medication regimen without any changes. DISCUSSION: Treatment options discussed with patient and all questions answered to patient's satisfaction. Discussed the rules and regulations surrounding prescription of opioids and compliance at length. Failure to follow the rules and regulation will result in tapering and discontinuation of medications if applicable. Prescribed medication that requires intensive monitoring for toxicity We do not currently prescribe any controlled substance from this practice. The spine model was demonstrated and Xray and MRI was reviewed and used to explain the condition. OARRS: Reviewed. Scribe Statement: Scribed for and in the presence of NISHANT RODRIGUEZ by Hedy Rivera CNA. Provider Statement: I, NISHANT RODRIGUEZ, personally performed the services described in the documentation, as scribed by Hedy Rivera CNA in my presence, and it is both accurate and complete. Hedy Rivera CNA 12/29/23 0943 NISHANT Rodriguez 12/29/23 1349 documented in this encounter [facility] [employer] 12-29-2023 Instructions Hedy Rivera CNA - 12/29/2023 8:30 AM EDT Epidural Steroid Injection (NAMAN) / Nerve Root Injection / Nerve Block These procedure(s) involve the injection of a steroid and anesthetic into the epidural space or the nerve sheath that is both diagnostic and potentially therapeutic for alleviating discomfort of the legs and arms secondary to compression of the respective nerves due to bulging discs, bone spurs and other potential causes. Steroids are potent anti-inflammatory drugs that act to decrease the swollen and inflamed nerves thus relieving your clinical symptoms. How Long Will This Procedure Last? The extent and duration of pain relief may depend on the amount of inflammation and how many areas are involved. Other coexisting factors may be responsible for your pain. You and your physician will discuss expected results of procedure(s). After Your Injection You may experience soreness and tenderness at the area of treatment. This pain may not occur until later today after the numbing medicine wears off. The steroid can take 3-5 days to work and provide noticeable improvement. Activity You may feel temporary numbness, weakness or tingling: In the neck, arm, or fingertips (if your procedure was done in your neck) In the legs (if your procedure was done in your lower back) These symptoms are normal, and should subside within 3-4 hours. In that time, be careful to avoid falls. As a safety precaution, you must have a local flatbed driver after a lumbar nerve root injection, even if you do not receive sedation. Resume activity as tolerated when function has returned. Medications Resume your routine medications after your procedure. You may resume blood thinners per your regular schedule after the procedure. If you received sedation: If you received sedation for your procedure, you may feel sleepy or not yourself for several hours today. For the next 24 hours avoid activities that requires alertness or coordination. This includes: Driving or operating heavy machinery Using power tools Consuming alcohol Do not make important or complex decisions or sign legal documents in the next 24 hours. Other Instructions: If you feel severe pain at the injection site with swelling and redness, increased leg weakness, a fever of 101 or higher, headache (or worsening headache), changes in vision or urinary retention: Please call the office at , or have someone take you to the nearest emergency room. Tell the emergency room staff that you recently had a spine injection. A doctor must evaluate you for bleeding and injection complications. If you lose control over bowel, bladder, or legs: Go to the nearest emergency room. If you are diabetic, the steroids used in this procedure can increase your blood sugar. If your blood sugar is 250mg/dL or higher, contact your primary care physician, or the doctor who manages your diabetes, to discuss how to get it back to normal. documented in this encounter [facility] 12-18-2023 Miscellaneous Notes Mr. Reeves calls today wanting to make an appointment for pain management. He is awaiting getting approval for a lumbar MRI. He is going to call his PCP's office on Thursday and ask if they can order PT and send a referral to us. Explained to patient that having the MRI results will allow us to have a treatment plan based on the results. [facility] Telephone encounter Note Mr. Reeves calls today wanting to make an appointment for pain management. He is awaiting getting approval for a lumbar MRI. He is going to call his PCP's office on Thursday and ask if they can order PT and send a referral to us. Explained to patient that having the MRI results will allow us to have a treatment plan based on the results. [facility] 10-21-2023 Telephone encounter Note Prescription called in for the patient. [facility] 10-21-2023 Miscellaneous Notes Prescription called in for the patient. documented in this encounter [facility] 11-20-2022 Note OP Note OPERATION DATE: 11/20/2022 PREOPERATIVE DIAGNOSIS: Retained right ureteral calculus. POSTOPERATIVE DIAGNOSIS: Retained right ureteral calculus, plus right ureteral stricture. PROCEDURE: 1. Cystoscopy. 2. Right rigid ureteral dilation. 3. Right ureteroscopy. 4. Holmium laser lithotripsy of very dense ureteral calculus 5. Stone basket extraction of ureteral calculus. 6. Placement of 6-Cambodian variable length right ureteral stent. ANESTHESIA: General [...] usual fashion. I started by passing a 22-Cambodian Olympus cystoscope per urethra and into the [...] kidney. I then used an 8 and 10-Cambodian rigid dilator to dilate the distal ureter. [...] into the bladder. I then slid a 6-Cambodian variable length Bard long-term ureteral stent over the wire, up into the kidney. The wire was removed and there were good curls in the kidney and in the bladder. The bladder was drained of its contents and the scope was then removed. He was then transferred [facility] and wheeled to PACU in stable condition. [facility] 11-19-2022 Hospital Discharg e instructions Patient Education [...] include: ?Spinach. ?Rhubarb. ?Beets. ?Potato chips and tamazight fries. ?Nuts. If you regularly take a diuretic medicine, make sure to eat at least 1 2 fruits or vegetables high in potassium each day. These include: ?Avocado. ?Banana. ?[place], prune, carrot, or tomato juice. ?Baked potato. [...] Casseroles. Pizza. Lasagna. Frozen meals. Potato chips. Cambodian fries. Summary You can reduce your risk [...] 12/26/2011 Document Revised: 12/21/2019 Document Reviewed: 08/11/2017 [employer] Patient Education Mango DSP. Follow Up Care 11/18/2022 14:59:23 With:Carleen CAPONE MD, URL Address: [facility] [address], [place] [address]- When: Unknown [facility] Evaluation + Plan note No data available for this section [facility] Evaluation + Plan note Future Appointments Appointment Date:12/09/2022 03:45:00 PM Scheduled Provider:Carleen CAPONE MD Location:[facility] Appointment Type:URO Procedure 15 min [facility] Evaluation + Plan note Future Appointments Appointment Date:12/09/2022 03:45:00 PM Scheduled Provider:Carleen CAPONE MD Location:[facility] Appointment Type:URO Procedure 15 min Diagnostic Tests PendingUrine Culture 11/26/22 [facility] Evaluation note Diagnosis Erectile dysfunction, unspecified erectile dysfunction type- Primary [facility] Diagnosis Lumbar disc herniation with radiculopathy- Primary Displacement of lumbar intervertebral disc without myelopathy Degeneration of lumbar intervertebral disc Degeneration of lumbar or lumbosacral intervertebral disc Left leg swelling Swelling of limb [facility] Diagnosis Lumbar disc herniation with radiculopathy Displacement of lumbar intervertebral disc without myelopathy Degeneration of lumbar intervertebral disc Degeneration of lumbar or lumbosacral intervertebral disc [facility] noteNo assessment information [facility] Work Phone: Evaluation note* Diagnosis Onset Date Resolution Status Deep venous thrombosis of left popliteal vein acute [facility] Work Phone: Evaluation note* Diagnosis Essential hypertension (CMS/HCC)- Primary Unspecified essential hypertension Insomnia, unspecified type documented in this encounter [facility]* Diagnosis Change in consistency of stool- Primary Family history of pancreatic cancer Family history of malignant neoplasm of gastrointestinal tract Essential hypertension (CMS/HCC) Unspecified essential hypertension documented in this encounter [facility]* Diagnosis Psychophysiological insomnia- Primary Persistent disorder of initiating or maintaining sleep Intermittent palpitations Other chest pain Moderate persistent asthma without complication (CMS/HCC) Essential hypertension (CMS/HCC) Unspecified essential hypertension Alcohol use disorder Psychophysiological insomnia- Primary Persistent disorder of initiating or maintaining sleep Moderate persistent asthma without complication (CMS/HCC) Essential hypertension (CMS/HCC) Unspecified essential hypertension Other chest pain Anxiety Anxiety state, unspecified Other male erectile dysfunction Psychophysiological insomnia- Primary Persistent disorder of initiating or maintaining sleep Moderate persistent asthma without complication (CMS/HCC) Essential hypertension (CMS/HCC) Unspecified essential hypertension Acute bilateral low back pain with right-sided sciatica Acute bilateral low back pain with right-sided sciatica- Primary Acute bilateral low back pain with right-sided sciatica- Primary Lumbar back pain with radiculopathy affecting lower extremity- Primary Lumbar back pain with radiculopathy affecting lower extremity- Primary HNP (herniated nucleus pulposus), lumbar Lumbar back pain with radiculopathy affecting lower extremity- Primary Acute deep vein thrombosis of left popliteal vein (CMS/HCC)- Primary Essential hypertension (CMS/HCC) Unspecified essential hypertension Lumbar back pain with radiculopathy affecting lower extremity Irritable bowel syndrome with both constipation and diarrhea- Primary Lumbar back pain with radiculopathy affecting lower extremity Irritable bowel syndrome with diarrhea Irritable bowel syndrome Lumbar back pain with radiculopathy affecting lower extremity- Primary Essential hypertension (CMS/HCC)- Primary Unspecified essential hypertension Acute deep vein thrombosis of left popliteal vein (CMS/HCC) Lumbar back pain with radiculopathy affecting lower extremity Moderate persistent asthma without complication (CMS/HCC)- Primary Essential hypertension (CMS/HCC) Unspecified essential hypertension Acute deep vein thrombosis of left popliteal vein (CMS/HCC) Insomnia, unspecified type Non-recurrent acute suppurative otitis media of left ear without spontaneous rupture of tympanic membrane Essential hypertension (CMS/HCC)- Primary Unspecified essential hypertension Insomnia, unspecified type Hypersomnia- Primary Hypersomnia, unspecified Primary insomnia Persistent disorder of initiating or maintaining sleep Shift work sleep disorder Circadian rhythm sleep disorder, shift work type Inadequate sleep hygiene Other specific disorder of sleep of nonorganic origin [facility] Diagnosis Moderate persistent asthma without complication (CMS/HCC)- Primary Essential hypertension (CMS/HCC) Unspecified essential hypertension Acute deep vein thrombosis of left popliteal vein (CMS/HCC) Insomnia, unspecified type Non-recurrent acute suppurative otitis media of left ear without spontaneous rupture of tympanic membrane [facility] Diagnosis Primary insomnia- Primary Persistent disorder of initiating or maintaining sleep Hypersomnia Hypersomnia, unspecified Sleep disturbance Unspecified sleep disturbance Alcohol use disorder [facility]* Diagnosis Psychophysiological insomnia- Primary Persistent disorder of initiating or maintaining sleep Intermittent palpitations Other chest pain Moderate persistent asthma without complication (CMS/HCC) Essential hypertension (CMS/HCC) Unspecified essential hypertension Alcohol use disorder Psychophysiological insomnia- Primary Persistent disorder of initiating or maintaining sleep Moderate persistent asthma without complication (CMS/HCC) Essential hypertension (CMS/HCC) Unspecified essential hypertension Other chest pain Anxiety Anxiety state, unspecified Other male erectile dysfunction Psychophysiological insomnia- Primary Persistent disorder of initiating or maintaining sleep Moderate persistent asthma without complication (CMS/HCC) Essential hypertension (CMS/HCC) Unspecified essential hypertension Acute bilateral low back pain with right-sided sciatica Acute bilateral low back pain with right-sided sciatica- Primary Acute bilateral low back pain with right-sided sciatica- Primary Lumbar back pain with radiculopathy affecting lower extremity- Primary Lumbar back pain with radiculopathy affecting lower extremity- Primary HNP (herniated nucleus pulposus), lumbar Lumbar back pain with radiculopathy affecting lower extremity- Primary Acute deep vein thrombosis of left popliteal vein (CMS/HCC)- Primary Essential hypertension (CMS/HCC) Unspecified essential hypertension Lumbar back pain with radiculopathy affecting lower extremity Irritable bowel syndrome with both constipation and diarrhea- Primary Lumbar back pain with radiculopathy affecting lower extremity Irritable bowel syndrome with diarrhea Irritable bowel syndrome Lumbar back pain with radiculopathy affecting lower extremity- Primary Essential hypertension (CMS/HCC)- Primary Unspecified essential hypertension Acute deep vein thrombosis of left popliteal vein (CMS/HCC) Lumbar back pain with radiculopathy affecting lower extremity Moderate persistent asthma without complication (CMS/HCC)- Primary Essential hypertension (CMS/HCC) Unspecified essential hypertension Acute deep vein thrombosis of left popliteal vein (CMS/HCC) Insomnia, unspecified type Non-recurrent acute suppurative otitis media of left ear without spontaneous rupture of tympanic membrane Essential hypertension (CMS/HCC)- Primary Unspecified essential hypertension Insomnia, unspecified type Occult blood in stools- Primary Nonspecific abnormal finding in stool contents documented in this encounter [facility]* Diagnosis Lumbar disc disease with radiculopathy- Primary [facility] Diagnosis Lumbar disc disease with radiculopathy- Primary Lumbar disc disease with radiculopathy- Primary Lumbar disc disease with radiculopathy [facility] Diagnosis Psychophysiological insomnia- Primary Persistent disorder of initiating or maintaining sleep Intermittent palpitations Other chest pain Moderate persistent asthma without complication (CMS/HCC) Essential hypertension (CMS/HCC) Unspecified essential hypertension Alcohol use disorder Psychophysiological insomnia- Primary Persistent disorder of initiating or maintaining sleep Moderate persistent asthma without complication (CMS/HCC) Essential hypertension (CMS/HCC) Unspecified essential hypertension Other chest pain Anxiety Anxiety state, unspecified Other male erectile dysfunction Psychophysiological insomnia- Primary Persistent disorder of initiating or maintaining sleep Moderate persistent asthma without complication (CMS/HCC) Essential hypertension (CMS/HCC) Unspecified essential hypertension Acute bilateral low back pain with right-sided sciatica Acute bilateral low back pain with right-sided sciatica- Primary Acute bilateral low back pain with right-sided sciatica- Primary Lumbar back pain with radiculopathy affecting lower extremity- Primary Lumbar back pain with radiculopathy affecting lower extremity- Primary HNP (herniated nucleus pulposus), lumbar Lumbar back pain with radiculopathy affecting lower extremity- Primary Acute deep vein thrombosis of left popliteal vein (CMS/HCC)- Primary Essential hypertension (CMS/HCC) Unspecified essential hypertension Lumbar back pain with radiculopathy affecting lower extremity Irritable bowel syndrome with both constipation and diarrhea- Primary Lumbar back pain with radiculopathy affecting lower extremity Irritable bowel syndrome with diarrhea Irritable bowel syndrome Lumbar back pain with radiculopathy affecting lower extremity- Primary Essential hypertension (CMS/HCC)- Primary Unspecified essential hypertension Acute deep vein thrombosis of left popliteal vein (CMS/HCC) Lumbar back pain with radiculopathy affecting lower extremity Moderate persistent asthma without complication (CMS/HCC)- Primary Essential hypertension (CMS/HCC) Unspecified essential hypertension Acute deep vein thrombosis of left popliteal vein (CMS/HCC) Insomnia, unspecified type Non-recurrent acute suppurative otitis media of left ear without spontaneous rupture of tympanic membrane Essential hypertension (CMS/HCC)- Primary Unspecified essential hypertension Insomnia, unspecified type Occult blood in stools- Primary Nonspecific abnormal finding in stool contents Alcohol use disorder- Primary Primary insomnia Persistent disorder of initiating or maintaining sleep Anxiety Anxiety state, unspecified Inadequate sleep hygiene Other specific disorder of sleep of nonorganic origin [facility] Diagnosis Psychophysiological insomnia- Primary Persistent disorder of initiating or maintaining sleep Intermittent palpitations Other chest pain Moderate persistent asthma without complication (CMS/HCC) Essential hypertension (CMS/HCC) Unspecified essential hypertension Alcohol use disorder Psychophysiological insomnia- Primary Persistent disorder of initiating or maintaining sleep Moderate persistent asthma without complication (CMS/HCC) Essential hypertension (CMS/HCC) Unspecified essential hypertension Other chest pain Anxiety Anxiety state, unspecified Other male erectile dysfunction Psychophysiological insomnia- Primary Persistent disorder of initiating or maintaining sleep Moderate persistent asthma without complication (CMS/HCC) Essential hypertension (CMS/HCC) Unspecified essential hypertension Acute bilateral low back pain with right-sided sciatica Acute bilateral low back pain with right-sided sciatica- Primary Acute bilateral low back pain with right-sided sciatica- Primary Lumbar back pain with radiculopathy affecting lower extremity- Primary Lumbar back pain with radiculopathy affecting lower extremity- Primary HNP (herniated nucleus pulposus), lumbar Lumbar back pain with radiculopathy affecting lower extremity- Primary Acute deep vein thrombosis of left popliteal vein (CMS/HCC)- Primary Essential hypertension (CMS/HCC) Unspecified essential hypertension Lumbar back pain with radiculopathy affecting lower extremity Irritable bowel syndrome with both constipation and diarrhea- Primary Lumbar back pain with radiculopathy affecting lower extremity Irritable bowel syndrome with diarrhea Irritable bowel syndrome Lumbar back pain with radiculopathy affecting lower extremity- Primary Essential hypertension (CMS/HCC)- Primary Unspecified essential hypertension Acute deep vein thrombosis of left popliteal vein (CMS/HCC) Lumbar back pain with radiculopathy affecting lower extremity Moderate persistent asthma without complication (CMS/HCC)- Primary Essential hypertension (CMS/HCC) Unspecified essential hypertension Acute deep vein thrombosis of left popliteal vein (CMS/HCC) Insomnia, unspecified type Non-recurrent acute suppurative otitis media of left ear without spontaneous rupture of tympanic membrane Essential hypertension (CMS/HCC)- Primary Unspecified essential hypertension Insomnia, unspecified type Occult blood in stools- Primary Nonspecific abnormal finding in stool contents Primary insomnia Persistent disorder of initiating or maintaining sleep [facility] Diagnosis Onset Date Resolution Status Admit Date Deep venous thrombosis of le ft popliteal vein acute December 13, 2024 2:46pm Degenerative disc disease acute December 13, 2024 2:46pm Encounter for screening for malignant neoplasm of prostate acute A pril 2024 2:46pm Essential (primary) hypertension acu te December 13, 2024 2:46pm Insomnia, unspecified acute Apr 2024 2:46pm [facility] Work Phone: Evaluation note* Diagnosis Psychophysiological insomnia- Primary Persistent disorder of initiating or maintaining sleep Intermittent palpitations Other chest pain Moderate persistent asthma without complication (CMS/HCC) Essential hypertension (CMS/HCC) Unspecified essential hypertension Alcohol use disorder Psychophysiological insomnia- Primary Persistent disorder of initiating or maintaining sleep Moderate persistent asthma without complication (CMS/HCC) Essential hypertension (CMS/HCC) Unspecified essential hypertension Other chest pain Anxiety Anxiety state, unspecified Other male erectile dysfunction Psychophysiological insomnia- Primary Persistent disorder of initiating or maintaining sleep Moderate persistent asthma without complication (CMS/HCC) Essential hypertension (CMS/HCC) Unspecified essential hypertension Acute bilateral low back pain with right-sided sciatica Acute bilateral low back pain with right-sided sciatica- Primary Acute bilateral low back pain with right-sided sciatica- Primary Lumbar back pain with radiculopathy affecting lower extremity- Primary Lumbar back pain with radiculopathy affecting lower extremity- Primary HNP (herniated nucleus pulposus), lumbar Lumbar back pain with radiculopathy affecting lower extremity- Primary Acute deep vein thrombosis of left popliteal vein (CMS/HCC)- Primary Essential hypertension (CMS/HCC) Unspecified essential hypertension Lumbar back pain with radiculopathy affecting lower extremity Irritable bowel syndrome with both constipation and diarrhea- Primary Lumbar back pain with radiculopathy affecting lower extremity Irritable bowel syndrome with diarrhea Irritable bowel syndrome Lumbar back pain with radiculopathy affecting lower extremity- Primary Essential hypertension (CMS/HCC)- Primary Unspecified essential hypertension Acute deep vein thrombosis of left popliteal vein (CMS/HCC) Lumbar back pain with radiculopathy affecting lower extremity Moderate persistent asthma without complication (CMS/HCC)- Primary Essential hypertension (CMS/HCC) Unspecified essential hypertension Acute deep vein thrombosis of left popliteal vein (CMS/HCC) Insomnia, unspecified type Non-recurrent acute suppurative otitis media of left ear without spontaneous rupture of tympanic membrane Essential hypertension (CMS/HCC)- Primary Unspecified essential hypertension Insomnia, unspecified type Occult blood in stools- Primary Nonspecific abnormal finding in stool contents Vocal tic disorder (CMS/HCC)- Primary Tic disorder, unspecified Primary insomnia Persistent disorder of initiating or maintaining sleep Hypersomnia Hypersomnia, unspecified Inadequate sleep hygiene Other specific disorder of sleep of nonorganic origin [facility] No data available for this section [facility] InstructionsNot on filedocumented in this encounter [facility] filedocumented in this [facility]ructionsNot on filedocumented in this encounter [facility]ructionsNot on filedocumented in this encounter [facility] No data available for this section [facility] Reason for referral (narrative)* Consultation (Routine) - Pending Review Specialty Diagnoses / Procedures Referred By Contac t Referred To Contact Neurology Diagnoses Insomnia, unspecified type Procedures [place] OFFICE/OUTPATIENT NEW HIGH MDM 60 MINUTES Jayson Carcamo NP [address] [place] [address] Radha Fofana [address] [place] [address] Referral ID Status Reason Start Date Expiration Date Visits Requested Visits Authorized [id number] Pending Review Specialty Services Required 05/12/2024 11/08/2024 1 1 [facility] Summary Purpose Family History No Family History [...] t Referred To Contact Diagnoses Lumbar disc disease with radiculopathy Procedures Case request operating room: INJECTION SPINE TRANSFORAMINAL LEFT L3, L4 NERVE ROOT Julianna Rosario APRN-DIRECTOR OF CARDIOLOGY [address] [place] [address] Referral ID Status Reason Start Date Expiration Date V isits Requested Visits Authorized [id number] Pending Review 12/29/2023 12/28/2024 1 1 Specialty Diagnoses / Procedures Referred By Contac t Referred To Contact Diagnoses Lumbar disc herniation with radiculopathy Degeneration of lumbar intervertebral disc Procedures CONSULT TO SPINE SURGERY OFFICE/OUTPATIENT NEW HIGH MDM 60 MINUTES Desirae Lo APRN.DIRECTOR OF CARDIOLOGY [address] [place] [address] Referral ID Status Reason Start Date Expiration Date Visits Requested Visits Authorized [id number] Authorized PCP Requested Referral 01/07/2024 01/06/2025 1 1 Chief Complaint and Reason for Visit Chief Complaint REF FOR ACUTE DVT OF LEFT POPLITEAL VEIN Chief Complaint REF FOR ACUTE DVT OF LEFT POPLITEAL VEIN Poison carolyn Reason for Visit Deep venous thrombos is of left popliteal vein Chief Complaint Admit Date Establish, pain in lower R Abd December 2:46pm Reason for Visit Admit Date Deep venous thrombosis of left popliteal vein December 13, 2024 2:46pm Degenerative disc disease December 13 2:46pm Encounter for screening for malignant ne oplasm of prostate December 13, 2024 2:46pm Essential (primary) hypertension December 132024 2:46pm Insomnia, unspecified December 13, 2024 2: 46pm Additional Source Comments Patient Care team informatio n (unrecognized section and content) Watch Inspector Relationship Specialty Start Date End Date Shaikh Sen MD PCP - General Internal Medicine 09/14/22 Watch Inspector Relationship Specialty Start Date End Date Robert Constantino MD PCP - General Family Medicine 11/02/12 Watch Inspector Relationship Specialty Start Date End Date Shaikh Sen MD [address] [place] [address] PCP - General Primary Care 01/07/24 Watch Inspector Relationship Specialty Start Date End Date Shaikh Sen MD [address] [place] [address] PCP - General Primary Care 01/07/24 Watch Inspector Relationship Specialty Start Date End Date Shaikh Sen MD [address] [place] [address] PCP - General Primary Care 01/07/24 Team [...] April 09, 2024 End: April 09, 2024 Watch Inspector Relationship Specialty Start Date End Date Carlos Sarabia MD [address] [place] [address] PCP - General Family Medicine 04/18/24 Jayson Carcamo NP [address] [place] [address] Nurse Practitioner Family Medicine 04/18/24 Watch Inspector Relationship Specialty Start Date End Date Carlos Sarabia MD [address] [place] [address] PCP - General Family Medicine 04/18/24 Jayson Carcamo NP [address] [place] [address] Nurse Practitioner Family Medicine 04/18/24 Watch Inspector Relationship Specialty Start Date End Date Carlos Sarabia MD [address] [place] [address] PCP - General Family Medicine 04/18/24 Jayson Carcamo NP [address] [place] [address] Nurse Practitioner Family Medicine 04/18/24 Watch Inspector Relationship Specialty Start Date End Date Carlos Sarabia MD [address] [place] [address] PCP - General Family Medicine 04/18/24 Jayson Carcamo NP [address] [place] [address] Nurse Practitioner Family Medicine 04/18/24 Watch Inspector Relationship Specialty Start Date End Date Carlos Sarabia MD [address] [place] [address] PCP - General Family Medicine 04/18/24 Jayson Carcamo NP [address] [place] [address] Nurse Practitioner Family Medicine 04/18/24 Watch Inspector Relationship Specialty Start Date End Date Carlos Sarabia MD [address] [place] [address] PCP - General Family Medicine 04/18/24 Jayson Carcamo NP [address] [place] [address] Nurse Practitioner Family Medicine 04/18/24 Watch Inspector Relationship Specialty Start Date End Date Carlos Sarabia MD [address] [place] [address] PCP - General Family Medicine 04/18/24 Jayson Carcamo NP [address] [place] [address] Nurse Practitioner Family Medicine 04/18/24 Watch Inspector Relationship Specialty Start Date End Date Carlos Sarabia MD [address] [place] [address] PCP - General Family Medicine 04/18/24 Jayson Carcamo NP [address] [place] [address] Nurse Practitioner Family Medicine 04/18/24 Watch Inspector Relationship Specialty Start Date End Date Carlos Sarabia MD [address] [place] [address] PCP - General Family Medicine 04/18/24 Jayson Carcamo NP [address] [place] [address] Nurse Practitioner Family Medicine 04/18/24 Watch Inspector Relationship Specialty Start Date End Date Carlos Sarabia MD [address] [place] [address] PCP - General Family Medicine 04/18/24 Jayson Carcamo NP [address] [place] [address] Nurse Practitioner Family Medicine 04/18/24 Watch Inspector Relationship Specialty Start Date End Date Shaikh Sen MD [address] [place] [address] PCP - General Internal Medicine 06/30/23 Watch Inspector Relationship Specialty Start Date End Date Shaikh Sen MD [address] [place] [address] PCP - General Internal Medicine 06/30/23 Watch Inspector Relationship Specialty Start Date End Date Shaikh Sen MD [address] [place] [address] PCP - General Internal Medicine 06/30/23 Watch Inspector Relationship Specialty Start Date End Date Shaikh Sen MD [address] [place] [address] PCP - General Internal Medicine 06/30/23 Watch Inspector Relationship Specialty Start Date End Date Shaikh Sen MD [address] [place] [address] PCP - General Internal Medicine 06/30/23 Watch Inspector Relationship Specialty Start Date End Date Carlos Sarabia MD [address] [place] [address] PCP - General Family Medicine 04/18/24 Jayson Carcamo NP [address] [place] [address] Nurse Practitioner Family Medicine 04/18/24 Radha Fofana DO [address] [place] [address] Referring Physician Neurology 11/15/24 Watch Inspector Relationship Specialty Start Date End Date Carlos Sarabia MD [address] [place] [address] PCP - General Family Medicine 04/18/24 Jayson Carcamo NP [address] [place] [address] Nurse Practitioner Family Medicine 04/18/24 Radha Fofana DO [address] [place], [place] [address] Referring Physician Neurology 11/15/24 Watch Inspector Relationship Specialty Start Date End Date Carlos Sarabia MD [address] [place] [address] PCP - General Family Medicine 04/18/24 Jayson Carcamo NP [address] [place] [address] Nurse Practitioner Family Medicine 04/18/24 Radha Fofana DO [address] [place] [address] Referring Physician Neurology 11/15/24 Team Status: Active Member Role Status Dates Jayson Carcamo NP-C Primary Care Provider Ac tive Team Status: Inactive Member Role Status Dates Jayson Carcamo NP-C Primary Care Provider Ac tive Start: December 13, 2024 End: December 13, 2024 Sulma Marcelo APRN FLIGHT CONTROL MANAGER-C Attending Provider Act olegario Start: December 13, 2024 End: December 13, 2024 Watch Inspector Relationship Specialty Start Date End Date Carlos Sarabia MD [address] [place] [address] PCP - General Family Medicine 04/18/24 Jayson Carcamo NP [address] [place] [address] Nurse Practitioner Family Medicine 04/18/24 Radha Fofana DO [address] [place] [address] Referring Physician Neurology 11/15/24 (unrecognized sect ion and content) No Status Records FoundNo Status Records FoundNo Status Records FoundNo Status Records FoundNo Status Records FoundNo Status Records FoundNo Status Records FoundNo Status Records Found INFORMATION SOURCE (unrecogn ized section and content) DATE CREATED AUTHOR 11/26/2022 [facility] DATE CREATED AUTHOR AUTHOR'S ORGANIZ ATION 12/25/2022 [facility] DATE CREATED AUTHOR AUTHOR'S ORGANIZ ATION 01/08/2024 [place] DATE CREATED AUTHOR AUTHOR'S ORGANIZ ATION 01/08/2024 [facility] DATE CREATED AUTHOR AUTHOR'S ORGANIZ ATION 01/15/2024 [facility] DATE CREATED AUTHOR AUTHOR'S ORGANIZ ATION 02/03/2024 [facility] DATE CREATED AUTHOR AUTHOR'S ORGANIZ ATION 03/03/2024 [facility] DATE CREATED AUTHOR AUTHOR'S ORGANIZ ATION 01/06/2025 [facility] d[facility] Specialists EPIC Reason for Visit (unrecogniz ed section and content) Reason Onset Date Comments Med Refill 10/21/2023 VIAGRA 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 Reason Comments New Patient Low Back pain Reason Comments Medication Problem Reason Comments New Patient Lumbar disc herniati on w/ radiculopathy, degeneration of lumbar intervertebral disc Specialty Diagnoses / Procedures Referred By Contac t Referred To Contact Diagnoses Lumbar disc herniation with radiculopathy Degeneration of lumbar intervertebral disc Procedures CONSULT TO SPINE SURGERY OFFICE/OUTPATIENT NEW HIGH MDM 60 MINUTES Desirae Lo, BARTENDERS.DIRECTOR OF CARDIOLOGY [address] [place] [address] Referral ID Status Reason Start Date Expiration Date V isits Requested Visits Authorized [id number] Closed PCP Requested Referral 01/07/2024 01/06/2025 1 1 Reason Comments Follow-up Reason Onset Date Comments Stool Color Change 05/30/2024 Pt called req uesting a blood test for Liver. He said he has had yellow foamy stool, metal taste in mouth, anxiety, nausea and indigestion. He is concerned because his father had Pancreatic Cancer. So he is asking for testing. Sleeve Maker recommended he schedule an appt but he said the soonest he could get in was two weeks out. Please advise -SCR Reason Comments primary insomnia Reason Comments Follow-up Reason Comments Insomnia Reason Comments Follow-up 3m Ulcer- black stoo l for about a day and half last week Reason Onset Date Comments Pain Management 12/18/2023 Reason Comments Back Pain Reason Comments Back Pain Reason Comments Med Refill Reason Comments vocal tic Source Comments (unrecognize d section and content) In the event this informatio n is protected by the Federal Confidentiality of Alcohol and Drug Abuse Patient Records regulations: The Federal rules restrict any use of the information to criminally investigate or prosecute any alcohol or drug abuse patient.[facility] the event this information is protected by the Federal Confidentiality of Alcohol and Drug Abuse Patient Records regulations: The Federal rules restrict any use of the information to criminally investigate or prosecute any alcohol or drug abuse patient.[facility] the event this information is protected by the Federal Confidentiality of Alcohol and Drug Abuse Patient Records regulations: The Federal rules restrict any use of the information to criminally investigate or prosecute any alcohol or drug abuse patient.[facility] the event this information is protected by the Federal Confidentiality of Alcohol and Drug Abuse Patient Records regulations: The Federal rules restrict any use of the information to criminally investigate or prosecute any alcohol or drug abuse patient.[facility] the event this information is protected by the Federal Confidentiality of Alcohol and Drug Abuse Patient Records regulations: The Federal rules restrict any use of the information to criminally investigate or prosecute any alcohol or drug abuse patient.[facility] Goals (unrecognized section and content) Goals may [...] BE BASED ON THE PRIMARY CLINICAL RECORDS. [employer] [facility]. provides no warranty or guarantee of the accuracy or completeness of information in this document.
[2025-02-10 08:56] LABS: Thyroid Stimulating Hormone 2.983 uIU/mL (0.358-3.740)
== END 2025-02-10 08:01 | disposition home or self-care (01) ==
LOC: LAB 08:01
PROVIDERS: PCP Nurse Practitioner Family; Visit Provider Psychiatry & Neurology Neurology
DX: F95.8 Other tic disorders (principal)
CPT/HCPCS: 36415; 84443

== ENCOUNTER 2025-02-10 08:03 | Outpatient (OUT) | payer OTHER, SELFPAY ==
--- OUTSIDE RECORDS SUMMARY | 2025-02-10 08:05 | XMS_ITS | Clinical Summary ---
Author Organization [facility] Address [address] [place] [address] Care Team Providers Care Obstetric Assistant Name Role Phone Shaikh NELSON Sen Primary Care Provider [phone] Allergies No known active allergies Medications fluticasone-poncho meterol (ADVAIR DISKUS) 100-50 mcg/dose DsDv Inhale 1 Puff as instructed as needed. Active gabapentin (NEURONTIN) 100 mg capsule Start with 1-3 pills at bedtime, then if tolerates well, may add 1-3 in the morning. 4 Active amLODIPine (NORVASC) 10 mg tablet TAKE 1 TABLET(10 MG) BY MOUTH IN THE MORNING 4 Active Zolpidem (AMBIEN CR) 12.5 mg CR tablet 4 Active apixaban (ELIQUIS) 5 mg tab(s) Take 1 tablet by mouth two times a day. Patient should start on February 06, 2024. 60 tablet 4 Active Active Problems Problem Noted Date Diagnosed Date Deep venous thrombosis 01/07/2024 Acute deep vein thrombosis (DVT) of left tibial vein 01/07/2024 Family History Medical History Relation Comments None Other Blood Clots No Family History Relation Status Comments Other Social History Tobacco Use Types Packs/Day Years Used Date Smoking Tobacco: Never Tobacco Cessation:Counseling Given: Not Answered Alcohol Use Standard Drinks/Week Comments Yes 0 (1 standard drink = 0.6 oz pur e alcohol) weekends Area Deprivation Index Answer Date Stephan rded National Score (1-100), lower number is lower ri sk 88 01/08/2024 State Score (1-10), lower number is lower risk 8 01/08/2024 Data from: https://www.neighborhoodatlas.medicine.[facility].edu/. Last address used for calculation [address] 01/08/2024 Sex and Gender Information Value Date Recorded Sex Assigned at Not on file Legal Sex Male 3:55 PM EST Gender Identity Not on file Sexual Orientation Not on file Last Filed Vital Signs Vital Sign Reading Time Taken Comments Blood Pressure 135/90 01/07/2024 1:25 PM EDT Pulse 89 01/07/2024 1:25 PM EDT Temperature 36.7 C (98 F) 01/07/2024 9:29 AM EDT Respiratory Rate 18 01/07/2024 1:25 PM EDT Oxygen Saturation 97% 01/07/2024 1:25 PM EDT Inhaled Oxygen Concentration - - Weight 65 kg (143 lb 4.8 oz) 02/01/2024 1:52 PM EDT Height 165.1 cm (5' 5 ) 02/01/2024 1:52 PM EDT Body Mass Index 23.85 02/01/2024 1:52 PM EDT Plan of Treatment Health Maintenance Due Date Last Done Comments Anxiety Screening 1986 Depression Screening 1986 HIV Screening 1986 Hepatitis C Screening 1986 DTaP,Tdap,Td Vaccine (1 - Tdap) 11/22/1987 Hepatitis B Vaccine (1 of 3 - 19+ 3-dose series) 11/21 Lipid Screening 11/22/2003 CT Colonography 2013 Colonoscopy 2013 Fecal Occult Blood 2013 Prostate Cancer Screening Discussion 2013 Sigmoidoscopy 2013 Pneumococcal Vaccine: 50+ (1 of 1 - PCV) 2018 Shingrix Vaccine (1 of 2) 2018 Covid-19 Vaccine (1 - season) 2024 Cologuard (FIT-DNA) 01/20/2025 01/20/2022 Colorectal Cancer Screening 01/20/2025 Influenza Vaccine (Season Ended) 2025 06/15/20 18 Diabetes Screening 01/06/2027 01/07/2024 Procedures Procedure Name Priority Date/Time Associated Diagnosis Comments COMPREHENSIVE METABOLIC PANEL STAT 01/07/2024 10:45 AM EDT from Last 3 Months or Most Recently Relevant to Health Maintenance Results * (ABNORMAL) COMPREHENSIVE METABOLIC PANEL (01/07/2024 10:45 AM EDT) Protein, Total 6.4 6.3 - 8.0 g/dL 01/07/2024 11:25 AM [facility] Albumin 3.8(L) 3.9 - 4.9 g/dL 01/07/2024 11:25 AM [facility] Calcium, Total 9.1 8.5 - 10.2 mg/dL 01/07/2024 11:25 AM [facility] Bilirubin, Total 0.5 0.2 - 1.3 mg/dL 01/07/2024 11:25 [facility] Alkaline Phosphatase 100 38 - 113 U/L 01/07/2024 11:25 AM [facility] AST 18 14 - 40 U/L 01/07/2024 11:25 AM [facility] ALT 22 10 - 54 U/L 01/07/2024 11:25 AM [facility] Glucose 84 74 - 99 mg/dL 01/07/2024 11:25 AM [facility] Comment: The [place] Diabetes Association (ADA) provides guidance for cutoff [...] Standards of Medical Care in Diabetes 2016, [place] [employer]. Diabetes Care. 2016.39(Suppl 1). BUN 14 9 - 24 mg/dL 01/07/2024 11:25 AM [facility] Creatinine 1.02 0.73 - 1.22 mg/dL 01/07/2024 11:25 AM [facility] Sodium 138 136 - 144 mmol/L 01/07/2024 11:25 AM [facility] Potassium 3.7 3.7 - 5.1 mmol/L 01/07/2024 11:25 AM [facility] Chloride 101 97 - 105 mmol/L 01/07/2024 11:25 AM [facility] CO2 26 22 - 30 mmol/L 01/07/2024 11:25 AM [facility] Anion Gap 11 9 - 18 mmol/L 01/07/2024 11:25 AM [facility] Estimated Glomerular Filtration Rate 87 >=60 mL/min/1. 73m 01/07/2024 11:25 AM [facility] Comment:Estimated Glomerular Filtration Rate (eGFR) is calculated using the 2020 CKD-EPI creatinine equation. This equation utilizes serum creatinine, sex, and age as parameters. The creatinine assay has traceable calibration to isotope dilution- mass spectrometry. Refer to KDIGO guidelines for clinical interpretation. In patients with unstable renal function, e.g. those with acute kidney injury, the eGFR may not accurately reflect actual GFR. Blood BLOOD SPECIMEN / Unknown Venipuncture / Unknown 01/07/2024 10:45 AM EDT 01/07/2024 11:00 AM EDT Clemente Flores DO LABORATORY Final Result [facility] [address] [facility] [place] [address], from Last 3 Months or Most Recently Relevant to Health Maintenance Insurance Care Teams Obstetric Assistant Relationship Specialty Start Date End Date Shaikh Sen MD [address] [place] [address] PCP - General Primary Care 01/07/24
[2025-02-10 08:17] LABS: Basophils Absolute Auto 0.1 10^3/uL (0.0-0.1); Basophils Percent Auto 1.1 % (0.2-2.0); Eosinophils Absolute Auto 0.2 10^3/uL (0.0-0.7); Eosinophils Percent Auto 3.7 % (0.9-7.0); Hematocrit 46.5 % (42.0-54.0); Hemoglobin 16.3 g/dL (14.0-18.0); Immature Granulocytes Abs Auto 0.01 10^3/uL (0.00-0.03); Immature Granulocytes Pct Auto 0.2 % (0.0-0.5); Lymphocytes Absolute Auto 3.2 10^3/uL (1.2-3.8); Lymphocytes Percent Auto 51.5 % (20.5-60.0); Mean Corpuscular HGB Conc 35.1 g/dL (29.9-35.2); Mean Corpuscular Hemoglobin 33.2 pg (25.9-34.0); Mean Corpuscular Volume 94.7 fL (80.0-94.0); Mean Platelet Volume 9.5 fL (9.5-13.5); Monocytes Absolute Auto 0.5 10^3/uL (0.3-0.8); Monocytes Percent Auto 8.1 % (1.7-12.0); Neutrophils Absolute Auto 2.2 10^3/uL (1.4-6.5); Neutrophils Percent Auto 35.4 % (43.0-75.0); Platelet Count 305 10^3/uL (150-450); Red Blood Count 4.91 10^6/uL (4.70-6.10); Red Cell Distribution Width 11.7 % (11.0-15.0); White Blood Count 6.1 10^3/uL (4.0-11.0)
== END 2025-02-10 08:04 | disposition home or self-care (01) ==
PROVIDERS: PCP Nurse Practitioner Family; Visit Provider Internal Medicine Gastroenterology
DX: K92.1 Melena (principal); F95.8 Other tic disorders
CPT/HCPCS: 36415; 84443; 85025

== ENCOUNTER 2025-03-24 16:08 | Emergency (ER) | payer OTHER, SELFPAY ==
[2025-03-24 16:14] VITALS: BP 150/90; PULSE 74; TEMP 36.8; O2SAT 100; BMI 22.5
--- OUTSIDE RECORDS SUMMARY | 2025-03-24 16:15 | XMS_ITS | Encounter Summary ---
Author Organization [facility] Address [address] [place] [address] Care Team Providers Care Case Packer Name Role Phone Shaikh NELSON Sen Primary Care Provider [phone] Carlos Sarabia MD Primary Care Provider [phone] Lakia Carcamo INTEGRITY DIRECTOR Unavailable [phone] Sonal Fofana DO Unavailable [phone] Encounter Details Date Type Department Care Team (Late st Contact Info) Description 12/23/2023 Clinisync Result Encounter [facility] External Department Unsolicited Hedy Hughes NP [address] [place] [address] Social History Tobacco Use Types Packs/Day Years [...] any clubs o r organizations such as samaritan groups, unions, fraternal or athletic groups, or [...] 12/03/2023 [facility] - Occupational Stress Questionnaire Answer Date Recorded [...] place to sleep or slept in a care home (including now)? No 12/24/2023 Sex and [...] EDT Narrative 12/23/2023 9:05 [place] [address] Magnetic Resonance Report Signed Patient: RONNY REEVES MR#: [id number] : 1970 Acct:[id number] Age/Sex: 53 / M ADM Date: 12/23/23 Loc: MRI Attending Dr: Hedy Hughes NP Ordering Physician: Hedy Hughes NP Date of Service: 12/23/23 Procedure(s): MR lumbar spine wo con Accession Number(s): [id number] cc: Hedy Hughes NP; Shaikh Kimberly Sen [address] [address] Patient Name: RONNY REEVES MRN: [id number] date: 1970 Sex: M Assigned Patient Location: MRI Current Patient Location: MRI Accession/Order Number: [id number] Exam Date: 12/23/2023 07:50 Report Date: 12/23/2023 [...] M.D. Signed By: 12/23/23904 DD/ 2 TD/TT: Lidder: Procedure Note Radiology, Radiologist, MD - 12/23/2023 [place] [address] Magnetic Resonance Report Signed Patient: RONNY REEVES AMR#: [id number] : 1970Acct:[id number] Age/Sex: 53 / MADM Date: 12/23/23 Loc: MRI Attending Dr: Hedy Hughes NP Ordering Physician: Hedy Hughes NP Date of Service: 12/23/23 Procedure(s): MR lumbar spine wo con Accession Number(s): [id number] cc: Hedy Hughes NP; Shaikh Kimberly Sen [facility] [place] [id number] Patient Name: RONNY REEVES MRN: [id number] date: 1970 Sex: M Assigned Patient Location: MRI Current Patient Location: MRI Accession/Order Number: [id number] Exam Date: 12/23/2023 07:50 Report Date: 12/23/2023 [...] Duque M.D. Signed By:12/23/23904 DD/ 2 TD/TT: Lidder: us Hedy Hughes INTEGRITY DIRECTOR [facility] Final Result documented in this encounter Visit Diagnoses Not on filedocumented in this encounter Additional Health Concerns Assessment Noted Time PHQ-9 Depression Total Score: 12 024 2:53 PM EST documented as of this encounter Care Teams Case Packer Relationship Specialty Start Date End Date Shaikh Sen MD [address] [place] [address] PCP - General Internal Medicine 10/26/23 04/17/24 Carlos Sarabia MD [address] [place] [address] PCP - General Family Medicine 04/18/24 Lakia Carcamo NP [address] [place] [address] Nurse Practitioner Family Medicine 04/18/24 Sonal Fofana DO [address] [place] [address] Referring Physician Neurology 11/15/24 documented as of this encounter
--- OUTSIDE RECORDS SUMMARY | 2025-03-24 16:15 | XMS_ITS | Encounter Summary ---
Author Organization [facility] Address [address] [place] [address] Care Team Providers Care Bridge Carpenter Name Role Phone Shaikh NELSON Sen Primary Care Provider [phone] Shaikh NELSON Sen Primary Care Provider [phone] Carlos Sarabia MD Primary Care Provider [phone] Lakia Carcamo WARDROBE ASSISTANT Unavailable [phone] Sonal Fofana DO Unavailable [phone] Encounter Details Date Type Department Care Team (Late st Contact Info) Description 10/08/2023 [facility] [address] [place] [address] Shaikh Sen MD [address] [place] [address] Social History Tobacco Use Types Packs/Day Years [...] on filedocumented in this encounter Care Teams Bridge Carpenter Relationship Specialty Start Date End Date Shaikh Sen MD PCP - General Internal Medicine 09/14/22 10/25/23 Shaikh Sen MD [address] [place] [address] PCP - General Internal Medicine 10/26/23 04/17/24 Carlos Sarabia MD [address] [place] [address] PCP - General Family Medicine 04/18/24 Lakia Carcamo NP [address] [place] [address] Nurse Practitioner Family Medicine 04/18/24 Sonal Fofana DO [address] [place] [address] Referring Physician Neurology 11/15/24 documented as of this encounter
--- OUTSIDE RECORDS SUMMARY | 2025-03-24 16:15 | XMS_ITS | Encounter Summary ---
Author Organization [facility] Address [address] [place] [address] Care Team Providers Care Continuity Tester Name Role Phone Shaikh NELSON Sen Primary Care Provider [phone] Carlos Sarabia MD Primary Care Provider [phone] Lakia Carcamo SIGNALS COLLECTOR/ANALYST Unavailable [phone] Sonal Fofana DO Unavailable [phone] Encounter Details Date Type Department Care Team (Late st Contact Info) Description 02/15/2024 Orders Only [facility] [address] [place] [address] Shaikh Sen MD [address] [place] [address] Social History Tobacco Use Types Packs/Day Years [...] or relatives? Twice a week 12/24/2023 Attends Christian Services Not on file 12/23 Do you belong to any clubs o r organizations such as jehovah's witness groups, unions, fraternal or athletic groups, or [...] Recorded Patient Health Questionnaire-2 Score 0 02/10/2024 [facility] - Occupational Stress Questionnaire Answer [...] place to sleep or slept in a jail (including now)? No 12/24/2023 Sex and Gender [...] documented as of this encounter Care Teams Continuity Tester Relationship Specialty Start Date End Date Shaikh Sen MD [address] [place] [address] PCP - General Internal Medicine 10/26/23 04/17/24 Carlos Sarabia MD [address] [place] [address] PCP - General Family Medicine 04/18/24 Lakia Carcamo NP [address] [place] [address] Nurse Practitioner Family Medicine 04/18/24 Sonal Fofana DO [address] [place] [address] Referring Physician Neurology 11/15/24 documented as of this encounter
--- OUTSIDE RECORDS SUMMARY | 2025-03-24 16:15 | XMS_ITS | Encounter Summary ---
Author Organization [facility] Address [address] [place] [address] Care Team Providers Care Class C Driver Name Role Phone Shaikh NELSON Sen Primary Care Provider [phone] Carlos Sarabia MD Primary Care Provider [phone] Lakia Carcamo DRAMA PROFESSOR Unavailable [phone] Sonal Fofana DO Unavailable [phone] Encounter Details Date Type Department Care Team (Late st Contact Info) Description 01/13/2024 Orders Only [facility] [address] [place] [address] Shaikh Sen MD [address] [place] [address] Social History Tobacco Use Types Packs/Day Years [...] or relatives? Twice a week 12/24/2023 Attends [employer] Not on file 12/23 Do you belong to any clubs o r organizations such as restorationism groups, unions, fraternal or athletic groups, or [...] Recorded Patient Health Questionnaire-2 Score 0 01/11/2024 [facility] - Occupational Stress Questionnaire Answer [...] place to sleep or slept in a detention (including now)? No 12/24/2023 Sex and Gender [...] documented as of this encounter Care Teams Class C Driver Relationship Specialty Start Date End Date Shaikh Sen MD [address] [place] [address] PCP - General Internal Medicine 10/26/23 04/17/24 Carlos Sarabia MD [address] [place] [address] PCP - General Family Medicine 04/18/24 Lakia Carcamo NP [address] [place] [address] Nurse Practitioner Family Medicine 04/18/24 Sonal Fofana DO [address] [place] [address] Referring Physician Neurology 11/15/24 documented as of this encounter
--- OUTSIDE RECORDS SUMMARY | 2025-03-24 16:15 | XMS_ITS | Encounter Summary ---
Author Organization [facility] Address [address] [place] [address] Care Team Providers Care Printing Plate Setter Name Role Phone Shaikh NELSON Sen Primary Care Provider [phone] Shaikh NELSON Sen Primary Care Provider [phone] Carlos Sarabia MD Primary Care Provider [phone] Lakia Carcamo ASSISTANT BOYS TRACK COACH Unavailable [phone] Sonal Fofana DO Unavailable [phone] Encounter Details Date Type Department Care Team (Late st Contact Info) Description 09/24/2023 Clinisync Result Encounter [facility] External Department Unsolicited Shaikh Sen MD [address] [place] [address] Social History Tobacco Use Types Packs/Day Years [...] EST Narrative 09/26/2023 4:37 PM EST The [address] [address] Cardiology Report Signed Patient: RONNY REEVES MR#: [id number] : 1970 Acct:[id number] Age/Sex: 52 / M ADM Date: 09/10/23 Loc: CARD Attending Dr: Shaikh Mckinley Harris Ordering Physician: Shaikh Kimberly Sen Date of Service: 09/10/23 Procedure(s): CA holter montior 2-7 days Accession Number(s): [id number] cc: Shaikh Kimberly Sen [facility] Test Date: 2023-09-24 Pat Name: RONNY REEVES Department: Room: - Gender: Male Explosive Expert: : 1970 Requested By: SHAIKH MCKINLEY Order Number: [id number] Reading MD: JAMES MARROQUIN Interpretive Statements Predominant [...] 09/26/23 1637 09/26/23 1637 DD/ 1023 TD/TT: Supervisor Public Health Nursing: Procedure Note Radiology, Radiologist, - 09/26/2023 [place] [address] Cardiology Report Signed Patient: RONNY REEVES AMR#: [id number] : 1970Acct:[id number] Age/Sex: 52 / MADM Date: 09/10/23 Loc: CARD Attending Dr: Shaikh Mckinley Harris Ordering Physician: Shaikh Kimberly Sen Date of Service: 09/10/23 Procedure(s): CA holter montior 2-7 days Accession Number(s): [id number] cc: Shaikh Kimberly Sen [facility] Test Date: 2023-09-24 Pat Name: RONNY REEVES Department: Room: - Gender: Male Explosive Expert: : 1970 Requested By: SHAIKH MCKINLEY Order Number: [id number] Reading MD: JAMES MARROQUIN Interpretive Statements Predominant [...] By:09/26/23 1637 09/26/23 1637 DD/ 1023 TD/TT: Supervisor Public Health Nursing: us Shaikh Mckinley [facility] Final Result documented in this encounter Visit Diagnoses Not on filedocumented in this encounter Care Teams Printing Plate Setter Relationship Specialty Start Date End Date Shaikh Sen MD PCP - General Internal Medicine 09/14/22 10/25/23 Shaikh Sen MD [address] [place] [address] PCP - General Internal Medicine 10/26/23 04/17/24 Carlos Sarabia MD [address] [place] [address] PCP - General Family Medicine 04/18/24 Lakia Carcamo NP [address] [place] [address] Nurse Practitioner Family Medicine 04/18/24 Sonal Fofana DO [address] [place] [address] Referring Physician Neurology 11/15/24 documented as of this encounter
--- OUTSIDE RECORDS SUMMARY | 2025-03-24 16:15 | XMS_ITS | Encounter Summary ---
Author Organization [facility] Address [address] [place] [address] Care Team Providers Care Training Program Assistant Name Role Phone Shaikh NELSON Sen Primary Care Provider [phone] Carlos Sarabia MD Primary Care Provider [phone] Lakia Carcamo HUMAN RESOURCES OFFICE ASSISTANT Unavailable [phone] Sonal Fofana DO Unavailable [phone] Encounter Details Date Type Department Care Team (Late st Contact Info) Description 12/28/2023 Orders Only [facility] [address] [place] [address] Shaikh Sen MD [address] [place] [address] Social History Tobacco Use Types Packs/Day Years [...] or relatives? Twice a week 12/24/2023 Attends [employer] Services Not on file 12/23 Do you belong to any clubs o r organizations such as sabianist groups, unions, fraternal or athletic groups, or [...] Questionnaire-2 Score 0 12/03/2023 [facility] - Occupational Stress Questionnaire Answer Date [...] place to sleep or slept in a skilled nursing (including now)? No 12/24/2023 Sex and Gender [...] documented as of this encounter Care Teams Training Program Assistant Relationship Specialty Start Date End Date Shaikh Sen MD [address] [place] [address] PCP - General Internal Medicine 10/26/23 04/17/24 Carlos Sarabia MD [address] [place] [address] PCP - General Family Medicine 04/18/24 Lakia Carcamo NP [address] [place] [address] Nurse Practitioner Family Medicine 04/18/24 Sonal Fofana DO [address] [place] [address] Referring Physician Neurology 11/15/24 documented as of this encounter
--- OUTSIDE RECORDS SUMMARY | 2025-03-24 16:15 | XMS_ITS | Encounter Summary ---
Author Organization [facility] Address [address] [place] [address] Care Team Providers Care Furniture Refinisher Name Role Phone Carlos Sarabia MD Primary Care Provider [phone] Lakia Carcamo LABOR SUPERVISOR Unavailable [phone] Sonal Fofana DO Unavailable [phone] Encounter Details Date Type Department Care Team (Late st Contact Info) Description 12/14/20[address] [facility] [address] [place] [address] Hedy Hughes NP [address] [place] [address] Social History Tobacco Use Types Packs/Day Years [...] or relatives? Twice a week 12/24/2023 Attends Sikhism Services Not on file 12/23 Do you belong to any clubs o r organizations such as methodist groups, unions, fraternal or athletic groups, or [...] Recorded Patient Health Questionnaire-2 Score 4 05/12/2024 [facility] - Occupational Stress [...] place to sleep or slept in a custodial (including now)? No 12/24/2023 Sex and Gender [...] documented as of this encounter Care Teams Furniture Refinisher Relationship Specialty Start Date End Date Carlos Sarabia MD [address] [place] [address] PCP - General Family Medicine 04/18/24 Lakia Carcamo NP [address] [place] [address] Nurse Practitioner Family Medicine 04/18/24 Sonal Fofana DO [address] [place] [address] Referring Physician Neurology 11/15/24 documented as of this encounter
--- OUTSIDE RECORDS SUMMARY | 2025-03-24 16:15 | XMS_ITS | Encounter Summary ---
Author Organization [facility] Address [address] [place] [address] Care Team Providers Care Log Haul Operator Name Role Phone Shaikh NELSON Sen Primary Care Provider [phone] Shaikh NELSON Sen Primary Care Provider [phone] Carlos Sarabia MD Primary Care Provider [phone] Lakia Carcamo PROCESS CONTROL MANAGER Unavailable Sonal Fofana DO Unavailable Encounter Details Date Type Department Care Team (Late st Contact Info) Description 09/10/2023 Clinisync Result Encounter [facility] External Department Unsolicited Shaikh Sen MD [address] [place] [address] Social History Tobacco Use Types Packs/Day Years [...] AM EST Narrative 09/11/2023 7:00 AM EST [place] [id number] Electrocardiograph Report Signed Patient: RONNY REEVES MR#: [id number] : 1970 Acct:[id number] Age/Sex: 52 / M ADM Date: 09/10/23 Loc: CARD Attending Dr: Shaikh Mckinley Harris Ordering Physician: Shaikh Kimberly Sen Date of Service: 09/10/23 Procedure(s): ECG 12 lead Accession Number(s): [id number] cc: [facility] Test Date: 2023-09-10 Pat Name: RONNY REEVES Department: Room: - Gender: Male Senior Ux Developer: : 1970 Requested By: [id number] Order Number: [id number] Reading MD: JAMES MARROQUIN Measurements Intervals [place] Rate: 77 P: 68 NM: 147 QRS: 66 QRSD: 93 T: 55 QT: 381 QTc: 434 Interpretive Statements SINUS RHYTHM WITH OCCASIONAL SUPRAVENTRICULAR PREMATURE COMPLEXES No previous ECG available for comparison Electronically Signed On 09-11-2023 6:59:38 EST by JAMES MARROQUIN Dictated By: James Marroquin D.O. Signed By: 09/11/23 0700 09/11/23 0700 DD/ 0925 TD/TT: Measurement Technician: Procedure Note Radiology, Radiologist, MD - 09/11/2023 [facility] [place] [id number] Electrocardiograph Report Signed Patient: RONNY REEVES [facility]#: [id number] : 1970Acct:[id number] Age/Sex: 52 / MADM Date: 09/10/23 Loc: CARD Attending Dr: Shaikh Mckinley Harris Ordering Physician: Shaikh Kimberly Sen Date of Service: 09/10/23 Procedure(s): ECG 12 lead Accession Number(s): [id number] cc: [facility] Test Date: 2023-09-10 Pat Name: RONNY REEVES Department: Room: - Gender: Male Senior Ux Developer: : 1970 Requested By: [id number] Order Number: [id number] Reading MD: JAMES MARROQUIN Measurements Intervals [place] Rate: 77 P: 68 NM: 147 QRS: 66 QRSD: 93 T: 55 QT: 381 QTc: 434 Interpretive Statements SINUS RHYTHM WITH OCCASIONAL SUPRAVENTRICULAR PREMATURE COMPLEXES No previous ECG available for comparison Electronically Signed On 09-11-2023 6:59:38 EST by JAMES MARROQUIN Dictated By: James Marroquin D.O. Signed By:09/11/23 0709/11/23 07 DD/ 4 TD/TT: Measurement Technician: us Shaikh Mckinley DAMON [facility] Final Result documented in this encounter Visit Diagnoses Not on filedocumented in this encounter Care Teams Log Haul Operator Relationship Specialty Start Date End Date Shaikh Sen MD PCP - General Internal Medicine 09/14/22 10/25/23 Shaikh Sen MD [address] [place] [address] PCP - General Internal Medicine 10/26/23 04/17/24 Carlos Sarabia MD [address] [place] [address] PCP - General Family Medicine 04/18/24 Lakia aCrcamo NP [address] [place] [address] Nurse Practitioner Family Medicine 04/18/24 Sonal Fofana DO [address] [place] [address] Referring Physician Neurology 3/4/25 documented as of this encounter
--- OUTSIDE RECORDS SUMMARY | 2025-03-24 16:15 | XMS_ITS | Clinical Summary ---
Author Organization [facility] Address [address] [place] [address] Care Team Providers Care Lineman Apprentice Name Role Phone Carlos Sarabia MD Primary Care Provider [phone] Lakia Carcamo STRATEGY INTERN Unavailable [phone] Sonal Fofana DO Unavailable [phone] Allergies No known active allergies Medications albuterol HFA 90 mcg/act inhalerIndication s:Moderate persistent asthma without complication (HCC) Inhale 2 puffs every 4 (four) hours [...] mins before bed 30 tablet 2 5 Active Active Problems Problem Noted Date Diagnosed [...] PM EDT): New Diagnosis 01/07/24 On Eliquis provoked. Will need rx for a minimum of 3 months. Patient requesting a referral to vascular surgery - as he will need clearance from them for spinal injections for his back pain. Lumbar disc disease with radiculopathy HNP (herniated nucleus pulposus), lumbar 024 Assessment [...] He would like to see a neurosugeon ([facility]) and Pain Mgmt ([facility] [place]) Keep fu appt with fawwad, and rx [...] He would like to see a neurosugeon ([facility]) and Pain Mgmt ([facility] in [place]) Keep fu appt with fawwad, and rx [...] at L4-5 Has saw Pain provider at [facility] on January 06 and scheduled to see [...] new referral ordered for Dr Masterson in [place] Patient educated on worrisome signs and symptoms [...] L4-5 Has an appointment with NS at [facility] on January 06 and scheduled to see [...] (12/17/2023 3:22 PM EDT): Received call from [facility] ER doctor Kermit Mcdonough. Pt was [...] Encounters Date Type Department Care Team Description 02/22/2025 Refill [facility] [address] [place] [address] Carlos Sarabia MD 02/20/2025 [facility] [address] [place] [address] Carlos Sarabia MD 02/10/2025 Clinisync Result Encounter [facility] External Department Unsolicited Sonal Fofana DO 01/05/2025 12:45 PM EDT Office Visit [place] [id number] [address] Sonal Fofana DO Vocal tic disorder (Primary Dx); Primary insomnia; Hypersomnia; Inadequate sleep hygiene 01/05/2025 Telephone [place] [address] [address] Sonal Fofana DO Blood Work 01/02/2025 Telephone [place] [address] [address] Sonal Fofana DO Symptoms from Last 3 Months Immunizations Immunization Administration [...] or relatives? Twice a week 12/24/2023 Attends Adventism Services Not on file 12/23 Do you belong to any clubs o r organizations such as episcopalian groups, unions, fraternal or athletic groups, or [...] Recorded Patient Health Questionnaire-2 Score 4 05/12/2024 [facility] - Occupational [...] place to sleep or slept in a correction (including now)? No 12/24/2023 Sex and Gender [...] Sigmoidoscopy 1970 FIT-DNA 01/20/2025 01/20/2022 Influenza Vaccine (#1) 2025 06/15/2018 Colonoscopy 07/01/2033 07/01/2023 Colorectal Cancer Screening 07/01/2033 Procedures Procedure Name Priority Date/Time Associated Diagnosis Comments TSH Routine 02/11/2025 8:51 PM EDT Vocal tic disorder ALL THYROID STIM HORMONE Routine 02/10/2025 8:11 AM EDT from Last 3 Months Results * TSH (02/11/2025 8:51 PM EDT) Blood Venous blood specimen / Unknown us Sonal Fofana DO LAB BLOOD ORDERABLES Final Resu lt [facility] * ALL THYROID STIM HORMONE (02/10/2025 8:11 AM EDT) THYROID STIMULATING HORMONE 2.983 0.358 - 3.740 uIU/mL [facility] 02/10/2025 8:11 AM EDT 02/10/2025 8:12 AM EDT Narrative [facility] - 02/10/2025 8:56 AM EDT us Sonal Fofana DO [facility] Final Result Performing Organization Address City/[facility]/ZIP Co de Phone Number [facility] from Last 3 Months Insurance [employer] Care Teams Lineman Apprentice Relationship Specialty Start Date End Date Carlos Sarabia MD [address] [place] [address] PCP - General Family Medicine 04/18/24 Lakia Carcamo NP [address] [place] [address] Nurse Practitioner Family Medicine 04/18/24 Sonal Fofana DO [address] [place] [address] Referring Physician Neurology 11/15/24
--- OUTSIDE RECORDS SUMMARY | 2025-03-24 16:15 | XMS_ITS | Patient Health Record ---
Author Organization [facility] [place] Address [address] [place] [address] Care Team Providers Care Caramel Maker Name Role Phone Mckinley DAMON, Laird Primary [...] Coverage End Date [employer] [address] [address] [place] [address] [id number] HeidyJacky glasgowy Self - patient is the insured 3 [...] F32.9 Hypertension 401.9 Surgical History Surgery Date(Month/Year) Colonoscopy 05/15/2015 Vasectomy 05/15/2016 Hemorrhoids 2010 Hospitalization History Reason Date(Month/Year) See above
--- OUTSIDE RECORDS SUMMARY | 2025-03-24 16:15 | XMS_ITS | Encounter Summary ---
Author Organization [facility] [employer] [facility] tem Address [id number] [address] [place] [address] Care Team Providers Care Chapter Relations Administrator Name Role Phone Shaikh NELSON Sen Primary Care Provider [phone] Encounter Details Date Type Department Care Team (Late st Contact Info) Description 12/01/2022 Orders Only [facility] Internal Medicine - Family Medicine [address] [place] [address] External, Scanning Provider Social History Tobacco Use [...] on filedocumented in this encounter Care Teams Chapter Relations Administrator Relationship Specialty Start Date End Date Shaikh Sen MD PCP - General Internal Medicine 06/30/23 documented as of this encounter
--- OUTSIDE RECORDS SUMMARY | 2025-03-24 16:15 | XMS_ITS | Encounter Summary ---
Author Organization [facility] Address [address] [place] [address] Care Team Providers Care Wine Sales Representative Name Role Phone Shaikh NELSON Sen Primary Care Provider [phone] Carlos Sarabia MD Primary Care Provider [phone] Lakia Carcamo ELECTRONIC TECH Unavailable [phone] Sonal Fofana DO Unavailable [phone] Encounter Details Date Type Department Care Team (Late st Contact Info) Description 12/16/2023 Orders Only [facility] [address] [place] [address] Nael Carmen MD [address], [place] [phone] Social History Tobacco Use Types Packs/Day Years [...] documented as of this encounter Care Teams Wine Sales Representative Relationship Specialty Start Date End Date Shaikh Sen MD [address] [place] [address] PCP - General Internal Medicine 10/26/23 04/17/24 Carlos Sarabia MD [address] [place] [address] PCP - General Family Medicine 04/18/24 Lakia Carcamo NP [address] [place] [address] Nurse Practitioner Family Medicine 04/18/24 Sonal Fofana DO [address] [place] [address] Referring Physician Neurology 11/15/24 documented as of this encounter
--- OUTSIDE RECORDS SUMMARY | 2025-03-24 16:15 | XMS_ITS | Clinical Summary ---
Author Organization [facility] Address [id number] [address] [place] [address] Care Team Providers Care Sterile Supply Technician Name Role Phone Shaikh NELSON Sen Primary Care Provider Allergies No known active allergies Medications predniSONE [...] He would like to see a neurosugeon ([facility]) and Pain Mgmt ([facility] in [place]) Keep fu appt with fawwad, and rx [...] on file Insurance [employer]/[place] Care Teams Sterile Supply Technician Relationship Specialty Start Date End Date Shaikh Sen MD PCP - General Internal Medicine 06/30/23
--- OUTSIDE RECORDS SUMMARY | 2025-03-24 16:15 | XMS_ITS | Encounter Summary ---
Author Organization [facility] Address [address] [place] [address] Care Team Providers Care Purchasing/Receiving Name Role Phone Shaikh NELSON Sen Primary Care Provider [phone] Carlos Sarabia MD Primary Care Provider [phone] Lakia Carcamo COREMAKER SUPERVISOR Unavailable [phone] Sonal Fofana DO Unavailable [phone] Reason for Visit * Reason Comments Med Refill Encounter Details Date Type Department Care Team (Late st Contact Info) Description 11/27/2023 [facility] [address] [place] [address] Shaikh Sen MD [address] [place] [address] Essential hypertension Social History Tobacco Use Types Packs/Day Years [...] this encounter Visit Diagnoses Diagnosis Essential hypertension Unspecified essential hypertension documented in this encounter Additional Health Concerns Assessment Noted Time PHQ-9 Depression Total Score: 12 024 2:53 PM EST documented as of this encounter Care Teams Purchasing/Receiving Relationship Specialty Start Date End Date Shaikh Sen MD [address] [place] [address] PCP - General Internal Medicine 10/26/23 04/17/24 Carlos Sarabia MD [address] [place] [address] PCP - General Family Medicine 04/18/24 Lakia Carcamo NP [address] [place] [address] Nurse Practitioner Family Medicine 04/18/24 Sonal Fofana DO [address] [place] [address] Referring Physician Neurology 11/15/24 documented as of this encounter
--- OUTSIDE RECORDS SUMMARY | 2025-03-24 16:41 | XMS_ITS | CCD ---
Author Organization [facility] In[facility] Care Team Providers Care Skid Man Name Role Phone LESLY ZUNIGA Primary Care Physician [phone] TIM WEAVER Admitting Unavailable TIM WEAVER Attending Unavailable MCKINLEY, ROWLAND H Primary Care Unavailable TIM WEAVER Consulting Unavailable HERSON MAGANA Consulting Unavailable CAPONE ., DR DURANT Admitting Unavailable CAPONE ., DR DURANT Attending Unavailable [facility] Primary Care Unavailable CAPONE ., DR DURANT Consulting Unavailable NAYE SIMMONS Consulting Unavailable CATARINO II, KURTIS Consulting Unavailable LISA BECKHAM Primary Care Physician Carleen CAPONE Attending Unavailable LESLY ZUNIGA Attending Unavailable ESTELITA, Carleen Nation Attending Unavailable ESTELITA, Carleen Nation Attending Unavailable ESTELITA, Carleen Nation Admitting Unavailable ESTELITA, Carleen Nation Attending Unavailable ESTELITA, Carleen Nation Attending Unavailable CAPONE, Carleen Nation Attending Unavailable Shaikh Sen MD Primary Care Provider Robert Constantino MD Primary Care Provider [phone] Shaikh Sen MD Primary Care Provider ROBERT CONSTANTINO Primary Care Unavailable DESIRAE LO Attending Unavailable AMY FARMER Attending Unavailable ELIGIO SENIKH Primary Care Unavailable SHAIKH SEN Referring Unavailable MCKINLEY, ROWLAND Primary Care Unavailable LAKSHMI SOLITARIO Attending Unavailable DESIRAE LO Referring Unavailable ELIGIO SENIKH Primary Care Unavailable JULIANNA ROSARIO Attending Unavailable SHAIKH SEN Referring Unavailable FAWWAD, ROWLAND Primary Care Unavailable JESSE COLLADO E Admitting Unavailable JESSE COLLADO Attending Unavailable FAWWAD, ROWLAND Referring Unavailable FAWWAD, ROWLAND Primary Care Unavailable JULIANNA ROSARIO Attending Unavailable FAWWAD, ROWLAND Referring Unavailable FAWWAD, ROWLAND Primary Care Unavailable Carlos Sarabia MD Primary Care Provider Carcamo TITLE CLERK AUTOMOBILE, Jayson Unavailable Mckinley DAMON, Rowland Primary Care Provider Carcamo TITLE CLERK AUTOMOBILE, Jayson Unavailable Radha Fofana DO Unavailable RADHA FOFANA Attending Unavailable RADHA FOFANA Attending Unavailable FAWWAD, ROWLAND Attending Unavailable RAIN SMARTA Attending Unavailable REBECCA SMITH Attending Unavailable FAWWAD, ROWLAND Referring Unavailable REBECCA SMITH Attending Unavailable FAWWAD, ROWLAND Referring Unavailable REBECCA SMITH Attending Unavailable FAWWAD, ROWLAND Referring Unavailable FAWWAD, ROWLAND Attending Unavailable FAWWAD, ROWLAND Attending Unavailable RAIN SMARTA Attending Unavailable FAWWAD, ROWLAND Referring Unavailable FAWWAD, ROWLAND Attending Unavailable NELA MEJÍA Attending Unavailable FAWWAD, ROWLAND Referring Unavailable RAIN SMARTA Attending Unavailable FAWWAD, ROWLAND Referring Unavailable RAIN SMARTA Attending Unavailable FAWWAD, ROWLAND Referring Unavailable RAIN SMARTA Attending Unavailable FAWWAD, ROWLAND Referring Unavailable BERRY, PACO Attending Unavailable FAWWAD, ROWLAND Referring Unavailable MICHAEL GARCIA Attending Unavailable FAWWAD, ROWLAND Referring Unavailable JAYSON CARCAMO Attending UnavailRADHA Nation Attending Unavailable JAYSON CARCAMO Referring Unavaillucila e CARCAMOJAYSON Attending UnavailRADHA Nation Attending Unavailable JAYSON CARCAMO Attending Unavaillucila e Sulma Marceol APRN Primary Care Provider Sury Champion DO Attending Provider Sulma Marcelo Primary Care Unavailable Ly, Sury Briggs Attending Unavailable Ly, Sury Briggs Admitting Unavailable Ly, Sury Briggs Admitting Unavailable Sulma Marcelo Primary Care Unavailable Ly, Sury Briggs Attending Unavailable Sulma Marcelo Primary Care Unavailable Ly, Sury L Attending Unavailable Ly, Sury L Admitting Unavailable Allergies Allergy Classification Reported Allergen(s) Allergy Type Date of Onset Reaction(s) Facility (1 source) No Known Medication Allergies; Translations: [No Known Medication Allergies] Propensity to adverse reactions (disorder) [facility] Repository Medications Current Medications Medication Drug Class(es) Dates Sig (Normalized) Sig (Original) [id number] 200 actuat albuterol 0.09 mg/actuat metered dose inhaler (20 sources) beta2-Adrenergic Agonist Start: 01-27-2025 take 1 puff(s) by inhalation every six hours as needed for wheezing Albuterol Sulfate 90 mcg/actuation HFA aerosol inhaler Active 2 PUFF INHALATION Every 6 hours as needed for shortness of breath or wheezing January 27, 2025 12:00am Start: 08-31-2023 End: 11-29-2023 take 2 puff(s) [...] Calcium Channel Lo Start: 08-31-2023 End: 06-14-2024 take 1 tablet by mouth once daily Amlodipine 10 mg tablet Active 10 MG PO Daily February 03, 2024 12:00am amoxicillin 875 mg [...] Refills(s) 0 Start Date: 02/22/21 Status: Ordered ferrous sulfate 325 mg oral tablet (2 sources) Start: 02-13-2025 take 1 tablet by mouth once daily Ferrous Sulfate (Iron) 325 mg (65 mg iron) tablet Active 325 MG PO daily February 13, 2025 12:00am 30 actuat fluticasone furoate 0.2 mg/actuat / [...] mouth every 12 (twelve) hours 05/08/2024 Active pantoprazole 40 mg delayed release oral tablet (1 source) Proton Pump Inhibitor Start: 02-21-2025 take 1 tablet by mouth once daily Pantoprazole 40 mg tablet,delayed release (DR/EC) Active 40 MG PO Daily February 21, 2025 12:00am sildenafil 100 mg oral tablet (20 sources) [...] 01/19/2024 Active tiZANidine 2 mg oral tablet (3 sources) Central alpha-2 Adrenergic Agonist Start: 12-13-2024 take [...] 90 tablet 02/04/2024 05/12/2024 Discontinued (Therapy completed) eszopiclone 3 mg oral tablet (20 sources) Start: 06-01-2024 End: 05-14-2025 take 1 tablet by mouth once daily at bedtime Eszopiclone (Lunesta) 3 mg tablet Discontinued 3 MG PO Daily at bedtime December 13, 2024 12:00am February 13, 2025 8:10am etodolac 300 mg oral capsule (3 sources) [...] 05/12/2024 Discontinued (Therapy completed) Fluticasone Propion-Salmeter ol (13 sources) Corticosteroid, beta2-Adrenergic Agonist Start: 02-03-2024 End: [...] every 48 hours. 0 Active Lactobacillus acidophilus (4 sources) Start: 04-09-2024 End: 12-13-2024 Lactobacillus acidophilus Discontinued PO April 09, 2024 12:00am December 13, 2024 2:54pm Start: 04-09-2024 Lactobacillus acidophilus Active PO April 09, 2024 12:00am mirtazapine 30 mg oral tablet (5 sources) End: 02-01-2024 take 1 tablet by mouth once daily at bedtime mirtazapine 30 mg tablet Take 30 mg by mouth daily at bedtime. 0 02/01/2024 Discontinued polyethylene glycol 3350 97959 mg powder for oral solution (5 sources) Osmotic Laxative Start: 11-16-2012 End: 02-01-2024 Polyethylene Glycol 3350 (MIRALAX) 17 gram/dose powder 1/2 capful in 8 oz of any fluid once a day. 1 Bottle 4 11/16/2012 02/01/2024 Discontinued predniSONE 10 mg oral tablet (10 sources) Start: 04-09-2024 End: 05-12-2024 predniSONE (Deltasone) [...] 12/24/2023 Active tadalafil 10 mg oral tablet (7 sources) Phosphodiesterase 5 Inhibitor Start: 11-04-2023 End: 12-13-2024 Tadalafil 10 mg tablet Discontinued 10 MG PO April 09, 2024 12:00am December 13, 2024 2:54pm zolpidem tartrate 12.5 mg extended release oral tablet (20 sources) gamma-Aminobutyric Acid-ergic Agonist Start: 02-03-2024 Zolpidem Active MG P O February 03, 2024 12:00am Start: 01-05-2024 End: 12-13-2024 Zolpidem 12.5 mg tablet,ext release multiphase Discontinued MG PO February 03, 2024 12:00am December 13, 2024 2:54pm Start: 10-05-2023 End: 01-03-2024 take 1 tablet [...] Date Documented Da te Episodic/Chronic Abdominal pain (8 sources) Unspecified abdominal pain; Translations: [Abdominal pain] Onset: 3 Episodic Alcohol-related disorders (7 sources) Alcohol abuse; Translations: [Alcohol abuse, uncomplicated] Onset: 5 12-14-2024 Chronic Anxiety disorders (20 sources) Anxiety; Translations: [Anxiety [...] [Essential (primary) hypertension] Onset: 2 02-21-2021 Chronic Gastrointestinal hemorrhage (5 sources) Melena; Translations: [Melena] Onset: 5 01-27-2025 Episodic Genitourinary symptoms and ill-defined conditions (1 source) [...] Chronic Other aftercare (1 source) Other terminal makeup operator (current) drug therapy; Translations: [OTH ALF CURRENT DRUG THERAPY] Onset: 3 Episodic Other [...] Translations: [Other fecal abnormalities] 05-30-2024 Episodic Other liver diseases (1 source) Fatty (change of) liver, not elsewhere classified; Translations: [Fatty (change of) liver, not elsewhere classified] Onset: 5 Chronic Other male genital disorders (20 sources) Impotence; [...] conditions (not mental disorders or infectious disease) (6 sources) Patient encounter status; Translations: [Encounter for screening for malignant neoplasm of prostate] 12-13-2024 Episodic Phlebitis; thrombophlebitis and thromboembolism (20 sources) Deep venous thrombosis; Translations: [Acute embolism and thrombosis of unspecified deep veins of unspecified lower extremity] Onset: 4 01-07-2024 Episodic Residual codes; unclassified (6 sources) Hypersomnia; Translations: [Hypersomnia, unspecified] 08-22-2024 Chronic Residual codes; unclassified (20 sources) Insomnia; Translations: [Insomnia, unspecified] Onset: 3 02-21-2021 Episodic Residual codes; unclassified (4 sources) Insomnia, unspecified; Translations: [Insomnia, unspecified] Onset: 3 12-13-2024 Episodic Residual codes; unclassified (1 source) Pain, unspecified; Translations: [Pain, unspecified] Onset: 4 Episodic Residual codes; unclassified (1 source) Family [...] Onset: 12-29-2023 11-19-2022 Episodic Other gastrointestinal disorders (14 sources) Occult blood in stools; Translations: [Other fecal abnormalities] Onset: 09-20-2024 09-20-2024 Episodic Otitis media and related conditions (2 sources) Acute suppurative otitis media without spontaneous rupture of ear drum; Translations: [Acute suppurative otitis media without spontaneous rupture of ear drum, left ear] 05-12-2024 Episodic Residual codes; unclassified (20 sources) Alcoholism; Translations: [Alcohol use disorder] Onset: 08-31-2023 08-31-2023 Episodic Residual codes; unclassified (2 sources) Disturbance in sleep behavior; Translations: [Sleep disorder, unspecified] 06-01-2024 Episodic Residual codes; unclassified (3 sources) Other specified conditions influencing health status; Translations: [Alcohol use disorder] Onset: 08-31-2023 08-31-2023 Episodic Spondylosis; intervertebral disc disorders; other back problems (20 sources) Acute low back pain; Translations: [Acute bilateral low back pain without sciatica] Onset: 10-05-2023 10-05-2023 Episodic Results Test Name Value Interpretation Reference Range Facility Amphetamine Screen Ql (U)Ord ered By: Sury Champion on 02-21-2025 Amphetamines Ql (U) Amphetamines screen Negativ e [facility] Barbiturates [Presence] in U rine by Screen methodOrdered By: Sury Champion on 02-21-2025 Barbiturates Screen Ql (U) Barbiturates [Presence] in Urine by Screen method Negative [facility] Benzodiazepines Screen Ql (U )Ordered By: Sury Champion on 02-21-2025 Benzodiazepines Ql (U) Benzodiazepines [Presence] in Urine by Screen method Negative [facility] Benzoylecgonine [Presence] i n Urine by Screen methodOrdered By: Sury Champion on 02-21-2025 Benzoylecgonine Screen Ql (U) Benzoylecgonine [Presence] in Urine by Screen method Negative [facility] Cannabinoids [Presence] in U rine by Screen methodOrdered By: Sury Champion on 02-21-2025 Cannabinoids Screen Ql (U) Cannabinoids [Presence] in Urine by Screen method High Negative [facility] Comment on above: These are unconfirme d results and should not be used for legal purposes. Drug Cut-Off Concentration: AMPH 1000 ng/mL ANDIE 200 ng/mL GIL 200 ng/mL COCM 300 ng/mL OP 300 ng/mL PCP 25 ng/mL THC 20 ng/mL Drug Screen,Urineon 02-22-20 25 Amphetamine Screen,Urine Negative Normal Negative [facility] Comment on above: Performed By: #### U RDS #### [place] [address] [place] Barbiturate Screen,Urine Negative Normal Negative [facility] Comment on above: Performed By: #### U RDS #### [facility] [address] [place] [address] [place] Benzodiazepines Screen,Urine Negative Normal Negative [facility] Comment on above: Performed By: #### U RDS #### [place] [address] [place] Cannabinoid Screen,Urine Positive High Negative [facility] Comment on above: Result Comment: Thes e are unconfirmed results and should not be used for legal purposes. Drug Cut-Off Concentration: AMPH 1000 ng/mL ANDIE 200 ng/mL GIL 200 ng/mL COCM 300 ng/mL OP 300 ng/mL PCP 25 ng/mL THC 20 ng/mL PERFORMED BY: [place] [address] PATHOLOGIST ELEVATOR ADJUSTER SAVITA NAVARRO M.D. Performed By: #### U RDS #### [address] Cocaine Screen,Urine Negative Normal Negative [facility] Comment on above: Performed By: #### U RDS #### [address] Opiate Screen,Urine Negative Normal Negative [facility] Comment on above: Performed By: #### U RDS #### [address] Phencyclidine Screen,Urine Negative Normal Negative [facility] Comment on above: Performed By: #### U RDS #### [address] 02-21-2025 L --- Specimen: [id number] Received: 02/21/25 Status: FERNANDOKatja Cesario Num: [id number] Spec Type: Surgical Subm Dr: Sury Champion, Tissues: A Small Intestine - Biopsy/Polyp (SMALL BOWEL BX) B Gastric Biopsy (GASTRIC BX) C Esophagus Biopsy (ESOPHAGUS BX) Procedures: HE/6, Gross/Micro L4/3, H PYLORI, IHC First AB Age/ Patient Sex Location Account Attending Physician Ronny Reeves /[facility] [id number] Sury Champion DO SPEC NUM: [id number] RECD: 02/21/25 STATUS: SADE VILLEDAKiah NUM: [id number] LEANA: 02/21/25-[address] [facility] DR: Sury Champion DO ENTERED: 02/21/[address] [facility] [address]: KATY TYPE: Surgical DEPT: S ENTERED BY: [id number] RECV BY: [id number] ORDERED: HE/6, Gross/Micro L4/3, H PYLORI, IHC First AB ORDERED: HE/6, Gross/Micro L4/3, H PYLORI, IHC First AB Pathological Diagnosis A. Duodenum (mucosal biopsies): Within normal limits No features of celiac disease or dysplasia seen B. Stomach (mucosal biopsies): Chronic antral gastritis, mild and inactive Unremarkable fundic mucosa No Helicobacter pylori organisms, intestinal metaplasia, or dysplasia seen See microscopic description C. Esophagus (mucosal biopsies): Gastroesophageal junctional mucosa with mild active esophagitis and glandular regeneration No distinctive type metaplastic glandular epithelium or dysplasia seen Clinical Information Part A rule out celiac, Part B rule out H. pylori, Part C rule out esophagitis Specimen: [id number] Received: 02/21/25 Status: SADE Nassar Num: [id number] Spec Type: Surgical Subm Dr: Sury Champion DO Tissues: A Small Intestine - Biopsy/Polyp (SMALL BOWEL BX) B Gastric Biopsy (GASTRIC BX) C Esophagus Biopsy (ESOPHAGUS BX) Procedures: HE/6, Gross/Micro L4/3, H PYLORI, IHC First AB Patient: Ronny Reeves [id number] (Continued) Specimen: [id number] Received: 02/21/25 (Continued) Signed (signature on file) Kadeem Bergeron Jr., MD 02/22/25 1554 Specimen: [id number] Received: 02/21/25 Status: SADE Nassar Num: [id number] Spec Type: Surgical Subm Dr: Sury Champion DO Tissues: A Small Intestine - Biopsy/Polyp (SMALL BOWEL BX) B Gastric Biopsy (GASTRIC BX) C Esophagus Biopsy (ESOPHAGUS BX) Procedures: HE/6, Gross/Micro L4/3, H PYLORI, IHC First AB Patient: Ronny Reeves [id number] (Continued) Specimen: [id number] Received: 02/21/25 (Continued) Gross Description Part A is received in formalin labeled with the patients name, date of , and small bowel BX is a cespedes-guido, focally erythematous, friable, 0.6 cm in greatest dimension tissue strip. The specimen is entirely submitted in a single cassette. (1, ns, [id number] A) JG Part B is received in formalin labeled with the patients name, date of , and gastric BX are 2 cespedes-guido, focally erythematous, friable, 0.3 and 0.4 cm in greatest dimension tissue bits. The specimen is entirely submitted in a single cassette. (1, ns, [id number] B) Part C is received in formalin labeled with the patients name, date of , and esophagus BX are 2 pale guido, focally erythematous, feathery, 0.2 and 0.3 cm in greatest dimension tissue bits. The specimen is entirely submitted in a single cassette. (1, ns, [id number] C) Microscopic Description B. Immunoperoxidase stain performed on formalin fixed and paraffin-embedded tissue sections (block B1) for Helicobacter pylori organisms is negative. The control stains appropriately. CPT Codes 53863 x 3, 35399 Specimen: [id number] Received: 02/21/25 Status: SADE Villedakiah Num: [id number] Spec Type: Surgical Subm Dr: Sury Champion, Tissues: A Small Intestine - Biopsy/Polyp (SMALL BOWEL BX) B Gastric Biopsy (GASTRIC BX) C Esophagus Biopsy (ESOPHAGUS BX) Procedures: HE/6, Gross/Micr (more content not included)... Normal [facility] Opiates [Presence] in Urine by Screen methodOrdered By: Sury Champion on 02-21-2025 Opiates Screen Ql (U) Opiates [Presence] in Urine by Screen method Negative [facility] Phencyclidine Screen Ql (U)O rdered By: Sury Champion on 02-21-2025 Phencyclidine Ql (U) Phencyclidine [Presence] in Urine by Screen method Negative [facility] US abdomen limitedon 025 US abdomen limited [facility] [place] [address] [place] [address] Ultrasound Report Signed Patient: Ronny Reeves MR#: [id number] 71 : 1970 Acct:[id number] Age/Sex: 54 / M ADM Date: 02/13/25 Loc: Room: Type: [facility] Attending Dr: Sury Champion DO Ordering Provider: Sury Champion DO Date of Service: 02/13/25 US/US abdomen limited: F10.10 - Alcohol abuse, uncomplicated Copies to: Sury Champion DO LIMITED ABDOMINAL ULTRASOUND WITH ASSESSMENT OF RIGHT UPPER QUADRANT HISTORY: Dark stools for 6 months. Alcohol abuse COMPARISON: None Negative ultrasound Lopez's sign reported. COMMON BILE DUCT: Normal caliber. No intraluminal abnormality. LIVER CONTOUR: Normal. LIVER PARENCHYMA: Mild hepatic steatosis HEPATIC LESION: None INTRAHEPATIC BILIARY DUCTAL DILATATION No ductal dilatation identified. GALLSTONES: No shadowing gallstones. GALLBLADDER SLUDGE: Nonshadowing echogenic focus dependently portion gallbladder. May represent sludge. GALLBLADDER WALL: Normal thickness PERICHOLECYSTIC FLUID: None Pancreas: Overlying bowel gas limiting assessment PORTAL VEIN: Normal blood flow. Liver size: Normal No RIGHT hydronephrosis identified. US/US abdomen limited IMPRESSION: Possible gallbladder sludge. No gallbladder wall thickening. No biliary duct dilatation. Impression dictated by: Nael Ramos M.D. 02/13/2025 5:15 PM Dictation Location: [place] [address] Tech: Sabiha Magallanes Transcribed By: MADAN 02/13/251714 Dictated By: Nael Ramos DO 02/13/251712 Signed By: 02/13/251714 Normal [facility] ALL THYROID STIM HORMONEon 0 02-10-2025 TSH Qn 2.983 m[IU]/L [facility] Basophils Auto (Bld) [#/Vol] on 02-10-2025 Basophils (Bld) [#/Vol] Automated basophil count 0.0-0.1 [facility] Basophils/100 WBC Auto (Bld) on 02-10-2025 Basophils/100 WBC (Bld) Automated basophil % 0.2-2.0 [facility] Eosinophils/100 WBC Auto (Bl d)on 02-10-2025 Eosinophils/100 WBC (Bld) Automated eosinophil % 0.9-7.0 [facility] Erythrocyte distribution wid th Auto (RBC) [Ratio]on 02-10-2025 Erythrocyte distribution width (RBC) [Ratio] Erythrocyte distribution width [Ratio] by Automated count 11.0-15.0 [facility] Hematocrit Auto (Bld) [Volum e fraction]on 02-10-2025 Hematocrit (Bld) [Volume fraction] Hematocrit [Volume Fraction] of Blood by Automated count 42.0-54.0 [facility] Hemoglobin [Mass/volume] in Bloodon 02-10-2025 Hemoglobin (Bld) [Mass/Vol] Hemoglobin [Mass/volume] in Blood 14.0-18.0 [facility] Laboratory - Chemistry and C hemistry - challengeon 02-10-2025 TSH Qn 2.983 m[IU]/L 0.358-3.740 [facility] - Hematology and Cell countson 02-10-2025 Immature granulocytes/100 WBC (Bld) 0.2 % 0.0-0.5 [facility] Leukocytes [#/volume] correc anne for nucleated erythrocytes in Blood by Automated counon 02-10-2025 WBC corrected for nucl RBC Auto (Bld) [#/Vol] Leukocytes [#/volume] corrected for nucleated erythrocytes in Blood by Automated coun 4.0-11.0 [facility] Lymphocytes Auto (Bld) [#/Vo l]on 02-10-2025 Lymphocytes (Bld) [#/Vol] Lymphocytes [#/volume] in Blood by Automated count 1.2-3.8 [facility] Lymphocytes/100 WBC Auto (Bl d)on 02-10-2025 Lymphocytes/100 WBC (Bld) Lymphocytes/100 leukocytes in Blood by Automated count 20.5-60.0 [facility] MCH Auto (RBC) [Entitic mass ]on 02-10-2025 MCH (RBC) [Entitic mass] MCH [Entitic mass] by Automated count 25.9-34.0 [facility] MCHC Auto (RBC) [Mass/Vol]on 02-10-2025 MCHC (RBC) [Mass/Vol] MCHC [Mass/volume] by Automated count 29.9-35.2 [facility] MCV Auto (RBC) [Entitic vol] on 02-10-2025 MCV (RBC) [Entitic vol] MCV [Entitic volume] by Automated count High 80.0-94.0 [facility] Monocytes Auto (Bld) [#/Vol] on 02-10-2025 Monocytes (Bld) [#/Vol] Automated blood monocyte count 0.3-0.8 [facility] Monocytes/100 WBC Auto (Bld) on 02-10-2025 Monocytes/100 WBC (Bld) Automated monocyte % 1.7-12.0 [facility] Neutrophils Auto (Bld) [#/Vo l]on 02-10-2025 Neutrophils (Bld) [#/Vol] Neutrophils [#/volume] in Blood by Automated count 1.4-6.5 [facility] Neutrophils/100 WBC Auto (Bl d)on 02-10-2025 Neutrophils/100 WBC (Bld) Automated neutrophil % Low 43.0-75.0 [facility] No Panel Informationon 02-10 Eosinophils # (Auto) 0.2 10 3/uL 0.0-0.[address] [facility] Immature Granulocyte # (Auto) 0.01 10 3/uL 0.00-0.03 [facility] Platelet mean volume Auto (B ld) [Entitic vol]on 02-10-2025 Platelet mean volume (Bld) [Entitic vol] Platelet mean volume [Entitic volume] in Blood by Automated count 9.5-13.5 [facility] Platelets Auto (Bld) [#/Vol] on 02-10-2025 Platelets (Bld) [#/Vol] Platelets [#/volume] in Blood by Automated count 150-450 [facility] RBC Auto (Bld) [#/Vol]on RBC (Bld) [#/Vol] Erythrocytes [#/volu me] in Blood by Automated count 4.70-6.10 [facility] Cholesterol in LDL Calc [Mas s/Vol]on 01-05-2025 Cholesterol in LDL [Mass/Vol] Cholesterol in LDL [Mass/volume] in Serum or Plasma by calculation [facility] Comment on above: <100 mg/dl [id number] 0-129 mg/dl NEAR OR ABOVE [id number] mg/dl BORDERLINE [id number] mg/dl HIGH>190 mg/dl VERY HIGH Cholesterol in VLDL Calc [Ma ss/Vol]on 01-05-2025 Cholesterol in VLDL [Mass/Vol] Cholesterol in VLDL [Mass/volume] in Serum or Plasma by calculation [facility] Estimated glomerular filtrat ion rate (GFR) non- Americanon 01-05-2025 GFR/1.73 sq M.predicted among non-blacks MDRD (S/P/Bld) [Vol rate/Area] Estimated glomerular filtration rate (GFR) non- >=60 mL/min/1.73m 2 [facility] Globulin Calc (S) [Mass/Vol] on 01-05-2025 Globulin (S) [Mass/Vol] Serum globulin measurement by calculation (mass/volume) [facility] - Chemistry and C hemistry - challengeon 01-05-2025 Albumin [Mass/Vol] 4.0 g/dL 3.4-5.0 [facility] ALP [Catalytic activity/Vol] 77 U/L 46-116 [facility] ALT [Catalytic activity/Vol] 30 U/L 16-63 [facility] AST [Catalytic activity/Vol] 17 U/L 15-37 [facility] Bilirubin [Mass/Vol] 1.0 mg/dL 0.2-1.0 [facility] Calcium [Mass/Vol] 9.1 mg/dL 8.5-10.1 [facility] Chloride [Moles/Vol] 106 mmol/L 98-107 [facility] Cholesterol [Mass/Vol] 155 mg/dL <=200 [facility] Cholesterol in HDL [Mass/Vol] 68 mg/dL High 40-60 [facility] Comment on above: > or =60 mg/dl - LOW CARDIOVASCULAR RISK<40 mg/dl - HIGH CARDIOVASCULAR RISK CO2 [Moles/Vol] 27.5 mmol/L 21.0-32.0 [facility] Creatinine [Mass/Vol] 1.09 mg/dL 0.70-1.30 [facility] GFR/1.73 sq M.predicted MDRD (S/P/Bld) [Vol rate/Area] mL/min/{1.73_m2} >=60 mL/min/1.73m 2 [facility] Glucose [Mass/Vol] 85 mg/dL 74-106 [facility] Potassium [Moles/Vol] 3.7 mmol/L 3.5-5.1 [facility] Protein [Mass/Vol] 6.6 g/dL 6.4-8.2 [facility] Sodium [Moles/Vol] 144 mmol/L 136-145 [facility] Triglyceride [Mass/Vol] 35 mg/dL <=150 [facility] Urea nitrogen [Mass/Vol] 19.0 mg/dL High 7.0-18.0 [facility] Urea nitrogen/Creatinine [Mass ratio] 17.4 mg/mg [facility] No Panel Informationon 01-05 Prostate Specific Antigen Screen 2.33 ng/mL <=4.00 [facility] Serum or plasma albumin/glob ulin mass ratioon 01-05-2025 Albumin/Globulin [Mass ratio] Serum or plasma albumin/globulin mass ratio [facility] Serum or plasma anion gap de terminationon 01-05-2025 Anion gap [Moles/Vol] Serum or plasma anion gap determination [facility] Serum or plasma total choles terol/high density lipoprotein (HDL) cholesterol mass angel 01-05-2025 Cholesterol.total/Ch olesterol in HDL [Mass ratio] Serum or plasma total cholesterol/high density lipoprotein (HDL) cholesterol mass rat [facility] Comment on above: 3.3 - 4.4 LOW RISK4. 4 - 7.1 AVERAGE RISK7.1 - 11.0 MODERATE RISK>11.0 HIGH RISK ALL CBC WITH AUTO DIFFon BASOPHILS ABSOLUTE AUTO 0.1 [facility] Basophils/100 WBC (Bld) 1.1 % 0.2 - 2.0 % [facility] Eosinophils/100 WBC (Bld) 2 % 0.9 - 7.0 % [facility] Erythrocyte distribution width (RBC) [Ratio] 11.9 % 11.0 - 15.0 % [facility] Hematocrit (Bld) [Volume fraction] 45.9 % 42.0 - 54.0 % [facility] Hemoglobin (Bld) [Mass/Vol] 15.9 g/dL 14.0 - 18.0 g/dL [facility] IMMATURE GRANULOCYTES ABS AUTO 0.01 [facility] Immature granulocytes/100 WBC (Bld) 0.1 % 0.0 - 0.5 % [facility] Interpretation and review of laboratory results Abnormal [facility] LYMPHOCYTES ABSOLUTE AUTO 3.5 [facility] Lymphocytes/100 WBC (Bld) 47.4 % 20.5 - 60.0 % [facility] MCH (RBC) [Entitic mass] 33.2 pg 25.9 - 34.0 pg [facility] MCHC (RBC) [Mass/Vol] 34.6 g/dL 29.9 - 35.2 g/dL [facility] MCV (RBC) [Entitic vol] 95.8 fL High 80.0 - 94.0 fL [facility] MONOCYTES ABSOLUTE AUTO 0.5 [facility] Monocytes/100 WBC (Bld) 7.3 % 1.7 - 12.0 % [facility] NEUTROPHILS ABSOLUTE AUTO 3.1 [facility] Neutrophils/100 WBC (Bld) 42.1 % Low 43.0 - 75.0 % [facility] Platelet mean volume (Bld) [Entitic vol] 9.2 fL Low 9.5 - 13.5 fL [facility]2 [facility] PLT 369 [facility] RBC 4.79 [facility] WBC 7.4 [facility] ALL CBC WITH AUTO DIFFon BASOPHILS ABSOLUTE AUTO 0.0 [facility] Basophils/100 WBC (Bld) 0.6 % 0.2 - 2.0 % [facility] Eosinophils/100 WBC (Bld) 0.9 % 0.9 - 7.0 % [facility] Erythrocyte distribution width (RBC) [Ratio] 12.3 % 11.0 - 15.0 % [facility] Hematocrit (Bld) [Volume fraction] 44.4 % 42.0 - 54.0 % [facility] Hemoglobin (Bld) [Mass/Vol] 15.4 g/dL 14.0 - 18.0 g/dL [facility] IMMATURE GRANULOCYTES ABS AUTO 0.01 [facility] Immature granulocytes/100 WBC (Bld) 0.1 % 0.0 - 0.5 % [facility] LYMPHOCYTES ABSOLUTE AUTO 3.1 [facility] Lymphocytes/100 WBC (Bld) 44.0 % 20.5 - 60.0 % [facility] MCH (RBC) [Entitic mass] 32.2 pg 25.9 - 34.0 pg [facility] MCHC (RBC) [Mass/Vol] 34.7 g/dL 29.9 - 35.2 g/dL [facility] MCV (RBC) [Entitic vol] 92.7 fL 80.0 - 94.0 fL [facility] MONOCYTES ABSOLUTE AUTO 0.5 [facility] Monocytes/100 WBC (Bld) 7.2 % 1.7 - 12.0 % [facility] NEUTROPHILS ABSOLUTE AUTO 3.3 [facility] Neutrophils/100 WBC (Bld) 47.2 % 43.0 - 75.0 % [facility] Platelet mean volume (Bld) [Entitic vol] 9.8 fL 9.5 - 13.5 fL [facility] TBH EO # 0.1 [facility] TB PLT 343 [facility] RBC 4.79 [facility] WBC 7.0 [facility] CNOVon 02-01-2024 CNOV Office Visit ([facility] ) RONNY REEVES ([id number]) 1970 M Date Time Provider Department 02/01/24 2:20 PM [facility] During your visit today, we recorded the [...] BICEPS TRICEPS DELTS Wrist Ext 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 Normal [facility] CBC W Auto Differential pane l (Bld)on 01-07-2024 Basophils (Bld) [#/Vol] 0.06 10*3/uL Normal <0.11 [facility] Comment on above: Order Comment: Speci men Type: BLOOD SPECIMEN Ordering Facility: [facility] Address: [address] [place] [address] Performed By: #### 3 4528-0 #### [facility] [place] [id number] [address] [place] [address] [place] Basophils/100 WBC (Bld) 0.7 % Normal [facility] Comment on above: Order Comment: Speci men Type: BLOOD SPECIMEN Ordering Facility: [facility] Address: [address] [place] [address] Performed By: #### 3 4528-0 #### [facility] CLIA [id number] [address] [place] [address] [place] Differential cell count method Nom (Bld) Auto Normal [facility] Comment on above: Order Comment: Speci men Type: BLOOD SPECIMEN Ordering Facility: [facility] Address: [address] [place] [address] Performed By: #### 3 4528-0 #### [facility] IA [id number] [address] [place] [address] [place] Eosinophils (Bld) [#/Vol] 0.20 10*3/uL Normal <0.46 [facility] Comment on above: Order Comment: Speci men Type: BLOOD SPECIMEN Ordering Facility: [facility] Address: [address] [place] [address] Performed By: #### 3 4528-0 #### [facility] CLIA [id number] [address] [place] [address] [place] Eosinophils/100 WBC (Bld) 2.3 % Normal [facility] Comment on above: Order Comment: Speci men Type: BLOOD SPECIMEN Ordering Facility: [facility] Address: [address] [place] [address] Performed By: #### 3 4528-0 #### [facility] CLIA [id number] [address] [place] [address] [place] Erythrocyte distribution width (RBC) [Ratio] 11.9 % Normal 11.5-15.0 [facility] Comment on above: Order Comment: Speci men Type: BLOOD SPECIMEN Ordering Facility: [facility] Address: [address] [place] [address] Performed By: #### 3 4528-0 #### [facility] CLIA [id number] [address] [place] [address] [place] Hematocrit (Bld) [Volume fraction] 45.0 % Normal 39.0-51.0 [facility] Comment on above: Order Comment: Speci men Type: BLOOD SPECIMEN Ordering Facility: [facility] Address: [address] [place] [address] Performed By: #### 3 4528-0 #### [facility] CLIA [id number] [address] [place] [address] [place] Hemoglobin (Bld) [Mass/Vol] 15.5 g/dL Normal 13.0-17.0 [facility] Comment on above: Order Comment: Speci men Type: BLOOD SPECIMEN Ordering Facility: [facility] Address: [address] [place] [address] Performed By: #### 3 4528-0 #### [facility] CLIA [id number] [address] [place] [address] [place] Immature granulocytes (Bld) [#/Vol] 0.16 10*3/uL High <0.10 [facility] Comment on above: Order Comment: Speci men Type: BLOOD SPECIMEN Ordering Facility: [facility] Address: [address] [place] [address] Performed By: #### 3 4528-0 #### [facility] CLIA [id number] [address] [place] [address] [place] Immature granulocytes/100 WBC (Bld) 1.8 % Normal [facility] Comment on above: Order Comment: Speci men Type: BLOOD SPECIMEN Ordering Facility: [facility] Address: [address] [place] [address] Performed By: #### 3 4528-0 #### [facility] CLIA [id number] [address] [place] [address] [place] Lymphocytes (Bld) [#/Vol] 2.20 10*3/uL Normal 1.00-4.00 [facility] Comment on above: Order Comment: Speci men Type: BLOOD SPECIMEN Ordering Facility: [facility] Address: [address] [place] [address] Performed By: #### 3 4528-0 #### [facility] CLIA [id number] [address] [place] Lymphocytes/100 WBC (Bld) 25.3 % Normal [facility] Comment on above: Order Comment: Speci men Type: BLOOD SPECIMEN Ordering Facility: [facility] Address: [address] [place] [address] Performed By: #### 3 4528-0 #### [facility] CLIA [id number] [place] [address] [place] MCH (RBC) [Entitic mass] 33.0 pg Normal 26.0-34.0 [facility] Comment on above: Order Comment: Speci men Type: BLOOD SPECIMEN Ordering Facility: [facility] Address: [address] [place] [address] Performed By: #### 3 4528-0 #### [facility] CLIA [id number] [address] [place] MCHC (RBC) [Mass/Vol] 34.4 g/dL Normal 30.5-36.0 [facility] Comment on above: Order Comment: Speci men Type: BLOOD SPECIMEN Ordering Facility: [facility] Address: [address] [place] [address] Performed By: #### 3 4528-0 #### [facility] CLIA [id number] [place] MCV (RBC) [Entitic vol] 95.7 fL Normal 80.0-100.0 [facility] Comment on above: Order Comment: Speci men Type: BLOOD SPECIMEN Ordering Facility: [facility] Address: [address] [place] [address] Performed By: #### 3 4528-0 #### [facility] CLIA [id number] [address] [place] [address] [place] Monocytes (Bld) [#/Vol] 0.70 10*3/uL Normal <0.87 [facility] Comment on above: Order Comment: Speci men Type: BLOOD SPECIMEN Ordering Facility: [facility] Address: [address] [place] [address] Performed By: #### 3 4528-0 #### [facility] CLIA [id number] [address] [place] [address] [place] Monocytes/100 WBC (Bld) 8.1 % Normal [facility] Comment on above: Order Comment: Speci men Type: BLOOD SPECIMEN Ordering Facility: [facility] Address: [address] [place] [address] Performed By: #### 3 4528-0 #### [facility] CLIA [id number] [address] [place] [address] [place] Neutrophils (Bld) [#/Vol] 5.36 10*3/uL Normal 1.45-7.50 [facility] Comment on above: Order Comment: Speci men Type: BLOOD SPECIMEN Ordering Facility: [facility] Address: [address] [place] [address] Performed By: #### 3 4528-0 #### [facility] CLIA [id number] [address] [place] [address] [place] Neutrophils/100 WBC (Bld) 61.8 % Normal [facility] Comment on above: Order Comment: Speci men Type: BLOOD SPECIMEN Ordering Facility: [facility] Address: [address] [place] [address] Performed By: #### 3 4528-0 #### [facility] CLIA [id number] [address] [place] [address] [place] Nucleated RBC (Bld) [#/Vol] 10*3/uL Normal <0.01 [facility] Comment on above: Order Comment: Speci men Type: BLOOD SPECIMEN Ordering Facility: [facility] Address: [address] [place] [address] Performed By: #### 3 4528-0 #### [facility] IA [id number] [address] [place] [address] [place] Nucleated RBC/100 WBC (Bld) [Ratio] 0.0 /100 WBC Normal [facility] Comment on above: Order Comment: Speci men Type: BLOOD SPECIMEN Ordering Facility: [facility] Address: [address] [place] [address] Performed By: #### 3 4528-0 #### [facility] IA [id number] [address] [place] [address] [place] Platelet mean volume (Bld) [Entitic vol] 9.3 fL Normal 9.0-12.7 [facility] Comment on above: Order Comment: Speci men Type: BLOOD SPECIMEN Ordering Facility: [facility] Address: [address] [place] [address] Performed By: #### 3 4528-0 #### [facility] IA [id number] [address] [place] [address] [place] Platelets (Bld) [#/Vol] 251 10*3/uL Normal 150-400 [facility] Comment on above: Order Comment: Speci men Type: BLOOD SPECIMEN Ordering Facility: [facility] Address: [address] [place] [address] Performed By: #### 3 4528-0 #### [facility] IA [id number] [address] [place] [address] [place] RBC (Bld) [#/Vol] 4.70 10*6/uL Normal 4.20-6.00 [facility] Comment on above: Order Comment: Speci men Type: BLOOD SPECIMEN Ordering Facility: [facility] Address: [address] [place] [address] Performed By: #### 3 4528-0 #### [facility] IA [id number] [address] [place] [address] [place] WBC (Bld) [#/Vol] 8.68 10*3/uL Normal 3.70-11.00 [facility] Comment on above: Order Comment: Speci men Type: BLOOD SPECIMEN Ordering Facility: [facility] Address: [address] [place] [address] Performed By: #### 3 4528-0 #### [facility] CLIA [id number] [address] [place] [address] [facility] CNOVon 01-07-2024 CNOV Office Visit ([facility] ) JOSEFARONNY ALBRECHT ([id number]) 1970 M Date Time Provider Department 01/07/24 8:00 AM DESIRAE LO [facility] During your visit today, we recorded the following information about you: Desirae Lo APRN.[employer] MANAGER 01/07/2024 9:02 AM Signed Spine Care Path [...] pain to the left leg. Works at [employer] Nonsmoker ETOH - twisted tea's drinking 3 [...] Oxycodone HCL 12/07/2023 Physical Therapy: TAMARA in [facility] - attended twice - discontinued by PCP due to patient's pain Treating Physicians: Dr. Constantino - PCP Hedy Hughes [facility] - [facility] neurosurgery Julianna Rosario [facility]- [facility] Pain management - left L3,L4 TFESI ordered - scheduled for 01/15/2024 Dr. Collado - Pain management - [facility] health care Dr. Sen - [facility] Health Care History of Spine Injections/Surgery: None [...] days 2 (more content not included)... Normal [facility] 01-07-2024 [facility] RONNY REEVES ([id number]) 1970 M Date Time Provider Department 01/07/24 DESIRAE LO [facility] During your visit today, we recorded the following information about you: Desirae Lo APRN.[facility] 01/07/2024 2:00 PM Signed Returned patient's call [...] to home, he will be contacting the [facility] for follow-up. At time of call he [...] CLAUDIO - Fully Assessed Reason for Visit: Plug Wirer - Other [3602] Prescriptions as of 01/07/2024 [...] Encounter Status:Closed by DESIRAE LO on 01/07/24 [facility] Telephone ([facility]) RONNY REEVES ([id number]) 1970 M Date Time Provider Department 01/07/24 PRINCE LLAMAS During your visit today, we recorded the following information about you: Prince Llamas RPh 01/07/2024 4:43 PM Signed Received call from patient stating apixaban was not covered through patient's insurance. Called and spoke with pharmacist at [id number] [place] [address] - [address] [address]. [facility] pharmacist stated apixaban starter pack was not in stock and thus they were unable to bill insurance until medication is in stock. However, [facility] pharmacist was able to fill as tablets since the starter pack was not in stock. This [facility] provided $30-day free trial card over the phone, confirmed with [facility] pharmacist that this patient will have $0 copay for initial supply. This [facility] provided $10 copay card over the phone and [facility] entered this under patient's profile for future monthly dispenses so that may copay per month will be $10. This [facility] called and updated patient with $0 initial supply and $10 monthly copay after that. Patient verbalized understanding. Thank you for allowing me to participate in this patient's care. Prince Llamas RPh Allergies As of Date: 01/07/2024 (No [...] Encounter Status:Closed by PRINCE LLAMAS on 01/07/24 [facility] CONSULTon 01-07-2024 CONSULT HNO ID: [id number] Author: DWAYNE DUQUE MD Service: Vascular Surgery Author Type: Physician Type: Consults Filed: 01/07/2024 12:52 Note Text: [facility]ASCULAR SURGERY INITIAL CONSULTVascular [...] DATE: January 07, 2024 TIME: 12:52 PM Normal [facility] CONSULT HNO ID: [id number] Author: ADARSH PARRA PA-C Service: Vascular Surgery Author Type: Physician Accounting Systems Manager Type: Consults Filed: 01/07/2024 12:56 Note Text: VASCULAR SURGERY CONSULT NOTE SERVICE DATE: 01/07/2024 SERVICE TIME: 10:34 AM REASON FOR CONSULT: DVT REQUESTING PHYSICIAN: Dr. Farmer PRIMARY CARE PHYSICIAN: Shaikh Mckinley MD Subjective HISTORY OF PRESENT ILLNESS: Ronny Reeves is a 53 year old male hx lumbar disc herniation w/ low back and leg pain x1 month. Pain began after receiving healthcare market consultant. He was seen by outpatient spine clinic [...] which included preparing to see the patient, [id number] patient care, completing clinical documentation, obtaining and/or reviewing separately obtained history, and performing a medically appropriate examination. SIGNATURE: Adarsh Parra PA-C PATIENT NAME: Ronny Reeves DATE: January 07, 2024 TIME: 10:34 AM PAGER: [phone] ' Normal [facility] Comprehensive metabolic 2000 panelon 01-07-2024 Albumin [Mass/Vol] 3.8 g/dL Low 3.9-4.9 [facility] Comment on above: Order Comment: Keith mckeon Type: BLOOD SPECIMEN Ordering Facility: [facility] Address: [address] [place] [address] Performed By: #### 2 4323-8 #### [facility] CLIA [id number] [address] [facility] [address] [place] ALP [Catalytic activity/Vol] 100 U/L Normal 38-113 [facility] Comment on above: Order Comment: Keith mckeon Type: BLOOD SPECIMEN Ordering Facility: [facility] Address: [address] [place] [address] Performed By: #### 2 4323-8 #### [facility] CLIA [id number] [address] [place] [address] [place] ALT [Catalytic activity/Vol] 22 U/L Normal 10-54 [facility] Comment on above: Order Comment: Speci men Type: BLOOD SPECIMEN Ordering Facility: [facility] Address: [address] [place] [address] Performed By: #### 2 4323-8 #### [facility] CLIA [id number] [address] [place] [address] [place] Anion gap [Moles/Vol] 11 mmol/L Normal 9-18 [facility] Comment on above: Order Comment: Speci men Type: BLOOD SPECIMEN Ordering Facility: [facility] Address: [address] [place] [address] Performed By: #### 2 4323-8 #### [facility] CLIA [id number] [address] [place] [address] [place] AST [Catalytic activity/Vol] 18 U/L Normal 14-40 [facility] Comment on above: Order Comment: Speci men Type: BLOOD SPECIMEN Ordering Facility: [facility] Address: [address] [place] [address] Performed By: #### 2 4323-8 #### [facility] CLIA [id number] [address] [place] [address] [place] Bilirubin [Mass/Vol] 0.5 mg/dL Normal 0.2-1.3 [facility] Comment on above: Order Comment: Speci men Type: BLOOD SPECIMEN Ordering Facility: [facility] Address: [address] [id number] Performed By: #### 2 4323-8 #### [facility] CLIA [id number] [address] [place] [address] [place] Calcium [Mass/Vol] 9.1 mg/dL Normal 8.5-10.2 [facility] Comment on above: Order Comment: Speci men Type: BLOOD SPECIMEN Ordering Facility: [facility] Address: [address] [place] [address] Performed By: #### 2 4323-8 #### [facility] CLIA [id number] [address] [place] [address] [place] Chloride [Moles/Vol] 101 mmol/L Normal 97-105 [facility] Comment on above: Order Comment: Speci men Type: BLOOD SPECIMEN Ordering Facility: [facility] Address: [address] [place] [address] Performed By: #### 2 4323-8 #### [facility] CLIA [id number] [address] [place] [address] [place] CO2 [Moles/Vol] 26 mmol/L Normal 22-30 [facility] Comment on above: Order Comment: Speci men Type: BLOOD SPECIMEN Ordering Facility: [facility] Address: [address] [place] [address] Performed By: #### 2 4323-8 #### [facility] CLIA [id number] [address] [place] [address] [place] Creatinine [Mass/Vol] 1.02 mg/dL Normal 0.73-1.22 [facility] Comment on above: Order Comment: Speci men Type: BLOOD SPECIMEN Ordering Facility: [facility] Address: [address] [place] [address] Performed By: #### 2 4323-8 #### [facility] CLIA [id number] [address] [place] [address] [place] Creatinine and Glomerular filtration rate.predicted panel (S/P/Bld) 87 mL/min/1.73m??? Normal >=60 [facility] Comment on above: Order Comment: Speci men Type: BLOOD SPECIMEN Ordering Facility: [facility] Address: [address] [place] [address] Result Comment: Jeri mated Glomerular Filtration Rate [...] GFR. Performed By: #### 2 4323-8 #### [facility] CLIA [id number] [address] [place] [address] [place] Glucose [Mass/Vol] 84 mg/dL Normal 74-99 [facility] Comment on above: Order Comment: Keith mckeon Type: BLOOD SPECIMEN Ordering Facility: [facility] Address: [address] [place] [address] Result Comment: The [place] Diabetes Association (ADA) provides guidance for cutoff [...] Standards of Medical Care in Diabetes 2016, [place] [employer]. Diabetes Care. 2016.39(Suppl 1). Performed By: #### 2 4323-8 #### [facility] CLIA [id number] [address] [place] [address] [place] Potassium [Moles/Vol] 3.7 mmol/L Normal 3.7-5.1 [facility] Comment on above: Order Comment: Keith mckeon Type: BLOOD SPECIMEN Ordering Facility: [facility] Address: [address] [id number] Performed By: #### 2 4323-8 #### [facility] CLIA [id number] [address] [place] [address] [place] Protein [Mass/Vol] 6.4 g/dL Normal 6.3-8.0 [facility] Comment on above: Order Comment: Keith mckeon Type: BLOOD SPECIMEN [facility] [facility] Address: [address] [id number] Performed By: #### 2 4323-8 #### [facility] CLIA [id number] [facility] [place] [address] [place] Sodium [Moles/Vol] 138 mmol/L Normal 136-144 [facility] ospital Comment on above: Order Comment: Speci men Type: BLOOD SPECIMEN Ordering Facility: [facility] Address: [address] [place], [place] [address] Performed By: #### 2 4323-8 #### [facility] CLIA [id number] [place] [address] [place] Urea nitrogen [Mass/Vol] 14 mg/dL Normal 9-24 [facility] Comment on above: Order Comment: Speci men Type: BLOOD SPECIMEN Ordering Facility: [facility] Address: [address] [place] [address] Performed By: #### 2 4323-8 #### [facility] CLIA [id number] [place] [address] [place] ED NOTEon 01-07-2024 ED NOTE HNO ID: [id number] Author: QIANA ALEJANDRA RN Service: Emergency Medicine Author Type: Registered Nurse Type: ED Notes Filed: 01/07/2024 13:25 Note Text: Discharge paperwork, follow up appointments/care, prescriptions discussed with patient. No questions at this time. Peripheral IV removed prior to discharge. Patient taken out of department at time of discharge. [facility] ED NOTE HNO ID: [id number] Author: QIANA ALEJANDRA RN Service: Emergency Medicine Author Type: Registered Nurse Type: ED Notes Filed: 01/07/2024 12:49 Note Text: Pharmacy at bedside. [facility] ED NOTE HNO ID: [id number] Author: QIANA ALEJANDRA RN Service: Emergency Medicine Author Type: Registered Nurse Type: ED Notes Filed: 01/07/2024 10:55 Note Text: US at bedside. [facility] ED PROV NOTEon 01-07-2024 ED PROV NOTE HNO ID: [id number] Author: AMY FARMER DO Service: Emergency Medicine [...] Management Management of the patient was discussed with:compliance consultant and pharmacist Discussion with compliance consultant included: Vascular surgery Discussion with pharmacist included: ED pharmacist Radiology Repor (more content not included)... Normal [facility] PT EDon 01-07-2024 PT ED HNO ID: [id number] Author: PRINCE LLAMAS RPh Service: Pharmacy Author [...] adverse drug reactions, and interactions. Prince Llamas RPh Normal [facility] PT panel Coag (PPP)on 2023 INR Coag (PPP) [Relative time] 1.0 {INR} Normal 0.9-1.3 [facility] Comment on above: Order Comment: Speci men Type: BLOOD SPECIMEN Ordering Facility: [facility] Address: [address] [place] [address] Result Comment: Marcia min K Antagonist (VKA) Therapeutic Range: INR 2 to 3 (Target INR of 2.5) Note: For patients treated with VKA drugs, such as warfarin, the [place] [employer] 2012 Guideline recommends [...] to 3.5 (target INR of 3). Pavel GOMEZ, et al. Chest 2012, 141:7S-47S Gia RA, et al. [facility] 2017, 70: 252-289 Performed By: #### 3 4528-0 #### [facility] CLIA [id number] [facility] [place] [place] [address] [place] [facility] PT Coag (PPP) [Time] 10.9 s Normal 9.7-13.0 [facility] Comment on above: Order Comment: Speci men Type: BLOOD SPECIMEN Ordering Facility: [facility] Address: [address] [place] [address] Performed By: #### 3 4528-0 #### [facility] CLIA [id number] [facility] [address] [id number] [place] US DVT LOWER LTon 01-07-2024 US DVT [...] IMAGED SEGMENTS OF THE LEFT LOWER EXTREMITY. Bindery Worker: СЕРГЕЙ Transcribe Date/Time: Jan 07 2024 11:37A Dictated by : JESUS AMARO MD This examination was interpreted and the report reviewed and electronically signed by: JESUS AMARO MD on Jan 07 2024 11:52AM EST [id number] Normal [facility] LEG ARTERIAL PERIPH UNL V LABon 01-07-2024 LEG ARTERIAL PERIPH UNL VAS LAB Non-Invasive Vascular Laboratory [facility] Lower Extremity Arterial Duplex Unilateral - [...] tibial artery : patent . Technologist: Robert HILL Ordering physician: AMY FARMER Referring physician: AMY FARMER DO Interpreting physician: Chicho aPrra MD, MEREDITH Final CC [employer] [facility] Image : [id number] See Link below for Image Normal [facility] 01-04-2024 [facility] Telephone ([facility]) RONNY REEVES ([id number]) 1970 M Date Time Provider Department 01/04/24 DESIRAE LO [facility] During your visit today, we recorded the following information about you: Desirae Lo APRN.[facility] MANAGER 01/04/2024 4:11 PM Signed Attempted to contact [...] RN - Fully Assessed Reason for Visit: Plug Wirer - Other [3602] Prescriptions as of 01/04/2024 [...] Status:Closed by DESIRAE LO on 01/04/[address] [facility] Operative Reporton Operative Report [id number]#[id number] D:127 Normal [facility] Coding Summary.on 12-04-2022 Coding Summary. CD:[id number] Ww+ PGhlYWQ+DJ6SRAEuF30qnXP kiC3rL0KVNCbSSpwbVPNGQE gZCzLzjeQxKJ1euGZoKOUq IC8+MB8dCVAvKcmgeJSjt0F 2sLD2V63ktz8sKHbdwDB1CR IiHfOuyfjwd3itvCs5PJviO mluOyBt VZCkrK62KLI1bK44Jh32uXP xrOBab8xpoZt2SbMwGCNjUN Q0vMclJUjxp9IwVKMqX56zi OBou3Q6 BVRkrOlplLKkUhVcfLZ0bO4 gDRwfbpzie9qbvhzlOwa0vm 36iHIit6S2oBZ6O6JnkfZ0Y GJvbGQg XniqkYUYnS5samggc3ngawd hVeWwDWKuALw9ZIr5WOTupD fhSzBtBF46BQO8QAUozeItA 2FsLWFs gPihVoM7p1M8Un1NW2DUOsy kX6AFYFAXXIyqoVF+PC90cj 81F0FvHwxoBoo6NNLrLAK0k YC3gV2q EGZrLFvou5V0oNC9G5HnlvA kdl9qp0tiQHOoTMuiF19xlX Xhz2A3WZXqpKI3TBBkuLvrU iBzaG93 Oyc+XTXogOkmw5RaUvbsc9v ak0fteMc3BryxPMGaoiPplT aqHAK0g3VjUa8gEHElxOH6c QI5uM9b GgXrOyW9AYexW804CxYsbUM bHrzhZ29zH5VpwXT+PHRyPj b5IKYwaLriKU9lV6YdUMTst mctbGVm jXbzIF4vLLRjgezhQYItqZ3 pWJPxR5a6WcBfFwZ3UQohA7 RvKZUzradlVw54nK9hVaPhC hG7CCcb N4HrnrD4LMBbjMHePVgdDKG 9P89re3T3YIKiJNXbKVD6fE V0qR8iqKppumopoLBkeHufu mVydGlj LUmsDFauM282DVQblCtyXdM vZGluZyBEYXRlOiAgMDMvMj MvMjAyMzwvdGQ+RGCuVGH3d WxlPSAn fPNgBBbxAm4pyQjadExcLH7 iJCEbxrxcKHQcvL3hIXSznX IzxEvqGL3rNEFdlxsjo366W iAxMHB0 WDOarKCxS3BzmV9qHwYqFWU kUHPmL3GjbYWlFMjlW976VZ kcQmF6SMEcaxPdA6VqOFGmf WduOiB0 l1E9Xv9Jg5UotmihS3TrrMQ iDgTyOjfuDZw2Z1UuWfjmuG I+KP87MARqKE14RYl7BBP6x WxlPSdi BWXsJ3TriH0vJcNdZZChCRW kOyc+PHRhYmxlIHdpZHRoPS tcKXNdDfDpdDvoRC6vYc8vL GVyLWNv vIdpaOMtLwLrm5fyXLRcKBs gTM7urDaiH2CxvEM4YWOwx4 q1Ew85X40rA2AutRA+PGNvb RW9xGW6 qI2tDrTfBlR5YVueH684SuU yaKCbUyyfe3plp9uvyVd7Ey V4CRKwxqZalDckLNW8f5SvQ t99X83h IHdpZHRoPSIxNSUiIHZhbGl kjj5tmY4zJz0+HAKnpLR6rT T8vH1xSfWfBkG7HKchS577J nRvcCIv Hqyen3heq4lgpDg5GkIqNIU unbNluIcyPIN2e9WoEz43C4 UjsFqja9JmWsy6hb02iDFca 6J7bIS1 H3CjJBOxqoqkgBXtmOwaTS4 rNTPaougcSHWwdN3iAGPlP6 f2GmDmXrW0OGsrS0YtuzP1H GJvbGQg KBAcbOJJgK4knqlvk7eopwg qDzMqLEJbYJl4JWq4IVImkY fnChPoXSV1FhX4RYD6iQEtn W7kyVzq fjxipI2zUxf+JTO3dGUqfXI RYL6bXcresUR+AZUhGJS9dC qcCUduQVMrgP0pIWVbB9h1S iAwLjA1 PQqpH2LksfJ2IHUtcHQsDQA neGHGuT7msspif5aufyraSr RmWRJpZLv1IDu6UBMfuXcfT iBsZWZ0 FqB5QOR4rBRqdS8xpGrylyu vrH9gZxh+IqdwsWmmXZK7JA i8Q3VrRnl1OODplAscPS5mo GFkZGlu Hj7owEcgwPxiFL8iVLDkmge po026ItLkf1mrRBEvdWGnCR xuJKB5V78lj1T2OSByOSItG VR2iGG6 qM9dtMsiqydznRIhlQmxreR pyAolGSrrEIpgN677HBMkbG afVvPiGLh4Y3VzUkk3IOHhq WxmRZ6y bGNuKArdJi6dbGqdtFynAB5 lFEApbwbqo768MqGwb5uiNM KzxQHqTGrtRIM3E05mm4M8Y CMwMDAw NCO3iNR2eV7uqRhvulvwtPP mdDsgdmVydGljYWwtYWxpZ2 08KCMlmGbaWxTlfPt2P8VrJ gx2PZFx iKxlZA6uxKKqUIwbUh6iiAu rhKjwFU5lRBEegaxts604Er Heo2skXWSbgMCgKOemXUZ6H 23kq6A5 WMCrSFWbEOO5bVZ1gS3exQl nbjogbGVmdDsgdmVydGljYW bgVUccK564QHSzoGzkNoYld GllbnQg JMjxORc0F2VsTzifdIK+PC9 3XRTiUQ35mFGqzLKck1ampG v8RnYbAOUjOUI4vIxkJUbvm 3JkZXIt N42mpFKvx6R9JHLjhXehrEA iVdGevCQ2eV2uYCoitrccx3 gnoxtsAgjke8lvdh92eJ18L 29sIHdp ZHRoPSIzMCUiIHZhbGlnbj0 xtA2gLa6+GOCaeFT5nBJ0kA 8vUGAuNdW7RWhhJ715ZvYdt CIvPjxj a3lrj8cuuVb2DuA1LIJrvdS diWcnYSB4y9DiNg08I59zZX dpZHRoPSIyMCUiIHZhbGlnb m8ncZ8x Ii8+OIFlyHD3yJV4cD9yNwP yFrT5ELurC902LkViaPJvKo ycN14fH3YivYO+IYDkFik5H CBzdHls US8axYZmEMtxMa1wYEM0OuQ jRjKdPNmvC4OdNZTozujsor ltnPM4OTWxYRYosC96Fw8jf DogMTBw mURDrE8shwizr2jfjuguZkE gJEWfUDx1FZt3XCHluBrsTn EhZDI4IvC6RXH8oOMywR3jf Glnbjog gM7pX0MlGFGalkmjYc95pD5 qNwKbTmS9EVoiThd+VkFMTE RUG6UbWXqHNGCSAO00BE50z JUqg0K5 yCK4Q7LvPVZguiapihzwxMB 9XFPiHVAgjR01jPWuGAghYm 0qn0J7s804MJNgPKRlyC11K g4gfKnq UCRnrKABjJ7pxqini5uxfrg dOwDwUPVuBWc9KXj4TGZiiJ mxWhEpIKE4YrE5NKT2oRAql G0dqXmi yiphyI1oSkw+MDMvMTAvMTk 2OTwvdGQ+MPDwFMI4qZvlHE rlTNIaaK8oVSTdS2i3XiYdH yJ8BEcn L5HrJLHtnzvcAv44oL0yIuY vBpZ1FNttN2SdjbQ6QMIrgI WzHMdpMBM3Y01oh4L7OKGnA DAwMDA7 dEB6qA8ylRvfrenboHGpfUj owmSehXpfSVsiFJipH264YL KnvFwbEbA3AJggOFFhKC47X D13aHQv b6E9rHC2P7YqUQUbvxqyvwb jpWK1AKGaTJDryH27uXRmAC hzYu4hu2W2h741DKAsGPBui V32My3b xCphSFFfmTEDdD0coygqj9n obcafRzTjBQCnAKv9FDc6DO WvbTmhNyNzYSA4XuJ8NAN5s YSpaI9s wBpjjuggdX1cZmj+TWFsZTw vdGQ+GPYoGIL6uYkkZOczLG OnyY0wKIPlF0e0OwLrZkZ6F OrlT8Bt BDRzihhjPh99uU8pDbKrJlR 4YAzjR9AslgX4DAIwlCCmTW ywPCA8H91tg3S1DQXjKYWqL YD7mXS9 rD0ayPsuvnzxlQAqjUyznhI vdNbaBOvoKMspS775FBOoeV cpEsyuSaVVdh4rKH1kCpksd GQ+PC90 bc72H1JhFxohOfq3WFKzNBT 6oLX9vZ1wZYOhVQbcy4Z4dO Y3P9FopqXxjq1lx2teAOWlE CflR68x gHEbg2T9RNReuLZ3KSSjnVl dTjVgjX12Ogq+PGNvbGdyb3 XiBtuql8hoq6iqpLj4FvZuZ SIgdmFs gKfjBSN1n6EyEy81E93rJAw pZHRoPSIzMCUiIHZhbGlnbj 0stC5iPp5+IGJxfES9mAH9r P5gPvWa VnU5OXcsD826QxYveVEoUnw qo2nfc5oeoQu2VbPlRIAtyk BkdPtlGZW1m6XrXb88N1Hhd Cqmt9Vm Soy5ch73oGXev5L0uBO4A4P yXCEivyqxqSXtoWpgLF9mNK CiuzksZVYioL3iJFFjY7p5M iAwLjA1 GIbjF7RvahB4PDSmjNGmOGH wgDIApN1bwndjp1nxlbhyIy RtAEVpPJv2UXi7XUCvjMbpC iBsZWZ0 StY5CLB0vTKheF2wbMilvkv pjC2yRwk+GWu3y5yosBEhHX 7cgQH5YD80MA64bMVts8O1f ZQ7B8Dl HDMhxnfkcbiadSP9YKRxODW iyY93Fb5hxDftWu7nSGVdLR P2LRZoyVSmL1VnaE6yUnMnK DAwMDAw J6TplYAoCXfvJ904LZhjYkT 7MCPzuyVqD3VrUDYvsDpuAc B4k7U8Of2CNG05LK43ZE69f GPqx7F5 mPT4P2BoSFXlilcxgyugfWR 7BEXuIOBwkT47Dv9msUubGd 8xZUFkGZI8RQBtkKCrG8Vrm I0oUtHz QMYlPZJiD8LvaVLnZDcjV26 3GMrrHoP7DYFwchFvN7JjXH QvtPagFxD9u8A1Ct5DSt20F C12RU41 jXAgq3S6dKA6B2FwLNSmjnr bnelolLV1UHOxSDMimY21Yh 2vjNfmOo7bQEMqBSI9RXAjs BAbU2Hq kF9wNcIrRPJrDJIsG6SyrVC xPJkxZ818FRqoQzW6UVRmub JyR5RmRYPmlRgxCkW7h2Z6Z g0GMHly qfx5X1ZzIrepfZT+JM34QIX wHI85dRCwvFTld3wjgVc1To ObPOAaDPW9yYhlIVurn0XcE PFhQ85f pPLxx2X4 (more content not included)... Normal [facility] Consent for Procedure/Surger yon 12-03-2022 Consent for Procedure/Surgery [id number] :127 Normal [facility] C Urineon 11-29-2022 Bacteria identified Cx [...] Locations R1: This test was performed at: [facility], [address] [place] [address], [facility]- , , Normal [facility] Comment on above: Performed By: #### 2 [id number] ####[facility] [address] [place] [address] Ambulatory Visit Summaryon 0 11-26-2022 Ambulatory Visit Summary RONNY REEVES :1970 Visit Date:11/26/2022 Ambulatory Visit Instructions Your Diagnosis Gross hematuria Tests Performed Urnls Dip Stick Auto w/o Microscopy POC [id number] Your Care Team Attending Physician - EFRAIN DAMON, LESLY Primary Care Physician - LISA BECKHAM DO This Is Your Medications List albuterol (Ventolin HFA 90 mcg/inh Aerosol) docusate (Colace 100 mg Cap) zolpidem (zolpidem 10 mg oral tablet) Procedures Performed Colonoscopy, Vasectomy. What to do next Scheduled Follow-Up Appointments Thursday 3:45 PM EDT With: ESTELITA DAMON, Carleen Nation Where: [facility] CALCULI, URINARYon 3 2,8 Dihydroxyadenine Normal [facility] Comment on above: Performed By: #### C ALCULI #### [facility] [address] [address] [address] Kaden James Ammonium Acid Urate Normal [facility] Comment on above: Performed By: #### C ALCULI #### [facility] [address] [address] [address] Kaden James Bilirubin Ql (U) Normal [facility] Comment on above: Performed By: #### C ALCULI #### [facility] [address] [address] [address] Kaden James Ca Oxalate Dihydrate Normal [facility] Comment on above: Performed By: #### C ALCULI #### [facility] [address] [address] [address] Kaden James CaHPO4 (Brushite) Normal [facility] Comment on above: Performed By: #### C ALCULI #### [facility] [address] [address] [address] Kaden James Calcium Bilirubinate Normal [facility] Comment on above: Performed By: #### C ALCULI #### [facility] [address] [address] [address] Kaden James Calcium Carbonate [place] [facility] Comment on above: Performed By: #### C ALCULI #### [facility] [address] [address] [address] Kaden James Calcium Oxalate Monohydrate 100 % [facility] Comment on above: Performed By: #### C ALCULI #### [facility] [address] [address] [address] Kaden James Calcium Palmitate [facility] Comment on above: Performed By: #### C ALCULI #### [facility] [address] [address] [address] Kaden James Calcium Phosphate Normal [facility] Comment on above: Performed By: #### C ALCULI #### [facility] [address] [address] [address] Kaden James Calcium Stearate [facility] Comment on above: Performed By: #### C ALCULI #### [facility] [address] [address] [address] Kaden James Carbonate Apatite Normal [facility] Comment on above: Performed By: #### C ALCULI #### [facility] [address] [address] [address] Kaden James Cellular Material [place] [facility] Comment on above: Performed By: #### C ALCULI #### [facility] [address] [address] [address] Kaden James Cholesterol [facility] Comment on above: Performed By: #### C ALCULI #### [facility] [address] [address] [address] Kaden James Color (U) Brown Normal [facility] Comment on above: Performed By: #### C ALCULI #### [facility] [address] [address] [address] Kaden James Comment [facility] Comment on above: Performed By: #### C ALCULI #### [facility] [address] [address] [address] Kaden James Comment Comment [facility] Comment on above: Result Comment: Calc ulus received wet. Wet calculi must be dried before analysis, which delays reporting of results. Leaving calculi wet (such as water, saline, blood, urine) may lead to changes in composition. Performed By: #### C ALCULI #### [facility] [address] [place] [address] Dr. Kaden James Comment: Comment Normal [facility] Comment on above: Result Comment: Phys ician questions regarding Calculi Analysis [facility]: [phone]. Performed By: #### C ALCULI #### [facility] [address] [place] [address] Dr. Kaden James Composition Comment [facility] Comment on above: Result Comment: Perc entage (Represents the % composition) Performed By: #### C ALCULI #### [facility] [address] [place] [address] Dr. Kaden James Cystine [facility] Comment on above: Performed By: #### C ALCULI #### [facility] [address] [place] [address] Dr. Kaden James Disclaimer: Comment [facility] Comment on above: Result Comment: This test was developed and its performance characteristics determined by [facility]. It has not been cleared or approved by the Food and Drug Administration. Performed By: #### C ALCULI #### [facility] [address] [place] [address] Dr. Kaden James Dried Blood [facility] Comment on above: Performed By: #### C ALCULI #### [facility] [address] [address] [address] Kaden James Drug or Metabolite Normal [facility] Comment on above: Performed By: #### C ALCULI #### [facility] [address] [address] [address] Kaden James Hydroxyapatite Normal [facility] Comment on above: Performed By: #### C ALCULI #### [facility] [address] [address] [address] Kaden James Mg NH4 PO4 (Struvite) [facility] Comment on above: Performed By: #### C ALCULI #### [facility] [address] [address] [address] Kaden James MgHPO4 (Newberyite) Normal [facility] Comment on above: Performed By: #### C ALCULI #### [facility] [address] [address] [address] Kaden James Other component(s) Normal [facility] Comment on above: Performed By: #### C ALCULI #### [facility] [address] [address] [address] Kaden James PDF . [facility] Comment on above: Performed By: #### C ALCULI #### [facility] [address] [address] [address] Kaden James Photo Comment [facility] Comment on above: Result Comment: Phot ograph will follow under a separate cover Performed By: #### C ALCULI #### [facility] [address] [address] [address] Kaden James Please note: Comment [facility] Comment on above: Result Comment: Calc renetta report will follow via computer, mail or primary special educator delivery. Performed By: #### C ALCULI #### [facility] [address] [address] [address] Kaden James Size 1x1 Normal [facility] Comment on above: Result Comment: Mult iple pieces received. Dimensions of the largest piece reported. Performed By: #### C ALCULI #### [facility] [address] [address] [address] Kaden James Sodium Acid Urate [facility] Comment on above: Performed By: #### C ALCULI #### [facility] [address] [address] [address] Kaden James Source Comment [facility] Comment on above: Result Comment: Righ t Ureter Performed By: #### C ALCULI #### [facility] [address] [address] [address] Kaden James Triamterene [facility] Comment on above: Performed By: #### C ALCULI #### [facility] [address] [address] [address] Kaden James Uric Acid [facility] Comment on above: Performed By: #### C ALCULI #### [facility] [address] [address] [address] Kaden James Uric Acid Dihydrate [facility] Comment on above: Performed By: #### C ALCULI #### [facility] [address] [address] [address] Kaden James Weight 22 mg [facility] Comment on above: Performed By: #### C ALCULI #### [facility] [address] [address] [address] Kaden James Xanthine [facility] Comment on above: Performed By: #### C ALCULI #### [facility] [address] [address] [address] Kaden James Operative Reporton Operative Report [id number]#1.00C D:127 Normal [facility] RAD - CT Reporton 11-24-2022 RAD - CT Report [id number]#1.00C D:127 Normal [facility] RAD - MISCon 11-24-2022 RAD - MISC [id number]#1.00C D:127 Normal [facility] Consent for Procedure/Surger yon 11-20-2022 Consent for Procedure/Surgery [id number] D:127 Normal [facility] Screenson 11-20-2022 Screens [id number]#1.00C D:127 [facility] Patient Educationon 11-20-19 Patient Education Urology [...] Rhubarb. ? Beets. ? Potato chips and burundian fries. ? Nuts. ? If you regularly take a diuretic medicine, make sure to eat at least 1?2 fruits or vegetables high in potassium each day. These include: ? Avocado. ? Banana. ? Steele, prune, carrot, or tomato juice. ? Baked [...] Salad dr (more content not included)... Normal [facility] Urology Office/Clinic Noteon 11-19-2022 Urology Office/Clinic Note Chief Complaint Follow up to [facility] HPI Staff Pt is here today for follow up to [facility] due to right flank and abdominal [...] and ureteral calculous obstruction) Follow up to [facility] ER visit on 11/16/22 due to [...] URL [facility] [address], [place] [address]- Additional Instructions: x-ray, schedule tentative laser litho [...] (at bedti (more content not included)... Normal [facility] Comment on above: Result Comment: Elec tronically Signed By: Carleen CAPONE MD\.br\Date and Time Signed: 11/19/22 14:25 EST\.br\Electronically Co-Signed By: Jyoti Morales\.br\Date and Time Co-Signed: 11/19/22 14:24 EST ED Note-Physicianon 11-19-19 ED Note-Physician [id number] D:127 Normal [facility] CBC AUTO DIFFon 11-16-2022 BASO # 0.1 103/ul Normal 0.0-0.1 [facility] Comment on above: Performed By: #### C BC #### [facility] [address] [place] [address] Dr. Kaden James Basophils/100 WBC (Bld) 0.6 % Normal 0.2-2.0 [facility] Comment on above: Performed By: #### C BC #### [facility] [address] [place] [address] Dr. Kaden James EO # 0.1 103/ul Normal 0.0-0.7 [facility] Comment on above: Performed By: #### C BC #### [facility] [address] [place] [address] Dr. Kaden James Eosinophils/100 WBC (Bld) 1.4 % Normal 0.9-7.0 [facility] Comment on above: Performed By: #### C BC #### [facility] [address] [place] [address] Dr. Kaden James Erythrocyte distribution width (RBC) [Ratio] 12.2 % Normal 11.0-15.0 [facility] Comment on above: Performed By: #### C BC #### [facility] [address] [place] [address] Dr. Kaden James Hematocrit (Bld) [Volume fraction] 44.6 % Normal 42.0-54.0 [facility] Comment on above: Performed By: #### C BC #### [facility] [address] [place] [address] Dr. Kaden James Hemoglobin (Bld) [Mass/Vol] 15.5 g/dL Normal 14.0-18.0 [facility] Comment on above: Performed By: #### C BC #### [facility] [address] [place] [address] Dr. Kaden James IG # 0.03 10e3/ul Normal 0.00-0.03 [facility] Comment on above: Performed By: #### C BC #### [facility] [address] [place] [address] Dr. Kaden James IG % 0.3 % Normal 0.0-0.5 [facility] Comment on above: Performed By: #### C BC #### [facility] [address] [place] [address] Dr. Kaden James LYMPH # 2.6 103/ul Normal 1.2-3.8 [facility] Comment on above: Performed By: #### C BC #### [facility] [address] [place] [address] Dr. Kaden James Lymphocytes/100 WBC (Bld) 25.6 % Normal 20.5-60.0 [facility] Comment on above: Performed By: #### C BC #### [facility] [address] [place] [address] Dr. Kaden James MANUAL DIFF REQ NO Normal [facility] Comment on above: Performed By: #### C BC #### [facility] [address] [place] [address] Dr. Kaden James MCH (RBC) [Entitic mass] 31.9 pg Normal 25.9-34.0 [facility] Comment on above: Performed By: #### C BC #### [facility] [address] [place] [address] Dr. Kaden James MCHC (RBC) [Mass/Vol] 34.8 g/dL Normal 29.9-35.2 [facility] Comment on above: Performed By: #### C BC #### [facility] [address] [place] [address] Dr. Kaden James MCV (RBC) [Entitic vol] 91.8 fL Normal 80.0-94.0 [facility] Comment on above: Performed By: #### C BC #### [facility] [address] [place] [address] Dr. Kaden James MONO # 0.7 103/ul Normal 0.3-0.8 [facility] Comment on above: Performed By: #### C BC #### [facility] [address] [address] [address] Kaden James Monocytes/100 WBC (Bld) 6.8 % Normal 1.7-12.0 [facility] Comment on above: Performed By: #### C BC #### [facility] [address] [address] [address] Kaden James NEUT # 6.6 103/ul Critically high 1.4-6.5 [facility] Comment on above: Performed By: #### C BC #### [facility] [address] [address] [address] Kaden James Neutrophils/100 WBC (Bld) 65.3 % Normal 43.0-75.0 [facility] Comment on above: Performed By: #### C BC #### [facility] [address] [place] [address] Dr. Kaden James Platelet mean volume (Bld) [Entitic vol] 9.2 fL Critically low 9.5-13.5 [facility] Comment on above: Performed By: #### C BC #### [facility] [address] [place] [address] Dr. Kaden James PLT 393 103/ul Normal 150-450 [facility] Comment on above: Performed By: #### C BC #### [facility] [address] [place] [address] Dr. Kaden James RBC 4.86 106/ul Normal 4.70-6.10 [facility] Comment on above: Performed By: #### C BC #### [facility] [address] [place] [address] Dr. Kaden James WBC 10.1 103/ul Normal 4.0-11.0 [facility] Comment on above: Performed By: #### C BC #### [facility] [address] [place] [address] ABD/PELVIS WO CONon [...] HERSON MAGANA Date: 2022-11-16 09:10 Normal [facility] ER URINE PROFILEon 3 Bilirubin Ql (U) Negative Normal NEGATIVE [facility] Comment on above: Performed By: #### HAMLET ROLLE #### [facility] [address] [place] [address] Dr. Kaden James Clarity (U) CLEAR Normal CLEAR [facility] Comment on above: Performed By: #### HAMLET ROLLE #### [facility] [address] [place] [address] Dr. Kaden James Color (U) YELLOW Normal YELLOW [facility] Comment on above: Performed By: #### HAMLET ROLLE #### [facility] [address] [place] [address] Dr. Kaden James ERUAHD A micrscopic examination will be performed if indicated. Normal [facility] Comment on above: Performed By: #### HAMLET ROLLE #### [facility] [address] [place] [address] Dr. Kdaen James Glucose Ql (U) Negative Normal NEGATIVE [facility] Comment on above: Performed By: #### Agus HILL UMICRO #### [facility] [address] [place] [address] Dr. Kaden James Hemoglobin Ql (U) SMALL Abnormal NEGATIVE [facility] Comment on above: Performed By: #### Agus HILL UMICRO #### [facility] [address] [place] [address] Dr. Kaden James Ketones Ql (U) Negative Normal NEGATIVE [facility] Comment on above: Performed By: #### Agus HILL UMICRO #### [facility] [address] [place] [address] Dr. Kaden James LEUKOCYTES Negative Normal NEGATIVE [facility] Comment on above: Performed By: #### Agus HILL UMICRO #### [facility] [address] [place] [address] Dr. Kaden James Nitrite Ql (U) Negative Normal NEGATIVE [facility] Comment on above: Performed By: #### Agus HILL UMICRO #### [facility] [address] [place] [address] Dr. Kaden James pH (U) 7.0 [pH] Normal 5-9 [facility] Comment on above: Performed By: #### Agus HILL UMICRO #### [facility] [address] [place] [address] Dr. Kaden James SPEC GRAVITY 1.020 Normal 1.005-<=1.025 [facility] Comment on above: Performed By: #### Agus HILL UMICRO #### [facility] [address] [place] [address] Dr. Kaden James UA PROTEIN Negative Normal NEGATIVE/ TRACE [facility] Comment on above: Performed By: #### Agus HILL UMICRO #### [facility] [address] [place] [address] Dr. Kaden James UR MICRO IND INDICATED Normal [facility] Comment on above: Performed By: #### E HAMLET HILL #### [facility] [address] [place] [address] Dr. Kaden James Urobilinogen Qn (U) 0.2 {Deonna'U}/dL Normal 0.2 - 1. 0 [facility] Comment on above: Performed By: #### E HAMLET HILL #### [facility] [address] [place] [address] Dr. Kaden James PROF CHEM 8 (BAS METB)on Anion gap [Moles/Vol] 11.3 mmol/L Normal [facility] Comment on above: Performed By: #### B MP #### [facility] [address] [place] [address] Dr. Kaden James Calcium [Mass/Vol] 9.2 mg/dL Normal 8.5-10.1 [facility] Comment on above: Performed By: #### B MP #### [facility] [address] [place] [address] Dr. Kaden James Chloride [Moles/Vol] 109 mmol/L Critically high 98-107 [facility] Comment on above: Performed By: #### B MP #### [facility] [address] [place] [address] Dr. Kaden James CO2 [Moles/Vol] 29.6 mmol/L Normal 21.0-32.0 [facility] Comment on above: Performed By: #### B MP #### [facility] [address] [place] [address] Dr. Kaden James Creatinine [Mass/Vol] 1.48 mg/dL Critically high 0.70-1.30 [facility] Comment on above: Performed By: #### B MP #### [facility] [address] [place] [address] Dr. Kaden James EGFR-AF COSTA RICAN 60 mL/min/1.73m2 Normal >=60 [facility] Comment on above: Performed By: #### B MP #### [facility] [address] [place] [address] Dr. Kaden James EGFR-NON AF COSTA RICAN 50 mL/min/1.73m2 Critically low >=60 [facility] Comment on above: Performed By: #### B MP #### [facility] [address] [place] [address] Dr. Kaden James Glucose [Mass/Vol] 112 mg/dL Critically high 74-106 [facility] Comment on above: Performed By: #### B MP #### [facility] [address] [place] [address] Dr. Kaden James Potassium [Moles/Vol] 3.9 mmol/L Normal 3.5-5.1 [facility] Comment on above: Performed By: #### B MP #### [facility] [address] [place] [address] Dr. Kaden James Sodium [Moles/Vol] 146 mmol/L Critically high 136-145 [facility] Comment on above: Performed By: #### B MP #### [facility] [address] [place] [address] Dr. Kaden James Urea nitrogen [Mass/Vol] 13.0 mg/dL Normal 7.0-18.0 [facility] Comment on above: Performed By: #### B MP #### [facility] [address] [place] [address] Dr. Kaden James Urea nitrogen/Creatinine [Mass ratio] 8.8 mg/mg Normal [facility] Comment on above: Performed By: #### B MP #### [facility] [address] [place] [address] Dr. Kaden James URINE MICROSCOPIC ONLYon BACTERIA NONE SEEN Normal NONE SEEN [facility] Comment on above: Performed By: #### E LIZ UMICRO #### [facility] [address] [place] [address] Dr. Kaden James Bacteria identified Cx Nom (U) NOT INDICATED Normal [facility] Comment on above: Performed By: #### E LIZ UMICRO #### [facility] [address] [place] [address] Dr. Kaden James CAST NONE SEEN Normal NONE SEEN [facility] Comment on above: Performed By: #### E RUR, UMICRO #### [facility] [address] [address] [address] Kaden James Crystals LM Nom (Urine sed) NONE SEEN Normal NONE SEEN [facility] Comment on above: Performed By: #### E RUR, UMICRO #### [facility] [address] [address] [address] Kaden James Epithelial cells LM Ql (Urine sed) RARE Normal NONE SEEN /RARE [facility] Comment on above: Performed By: #### E RUR, UMICRO #### [facility] [address] [address] [address] Kaden James MUCOUS TRACE Abnormal NONE SEEN [facility] Comment on above: Performed By: #### E RUR, UMICRO #### [facility] [address] [place] [address] Dr. Kaden James RBC 2-5 Abnormal 0-2 [facility] Comment on above: Performed By: #### E RUR, UMICRO #### [facility] [address] [place] [address] Dr. Kaden James WBC 0-2 Abnormal NONE SEEN [facility] Comment on above: Performed By: #### E ALLYSSAR, UMICRO #### [facility] [address] [place] [address] Dr. Kaden James Vital Signs Date Time Vital Sign Value Performing Clinician Facility 02-21-2025 11:23-0400 Diastolic blood pressure 87 mm[Hg] Sulma Marcelo APRN Work Phone: [facility] 02-21-2025 11:23-0400 Heart rate 70 /min Sulma Marcelo APRN Work Phone: [facility] 02-21-2025 11:23-0400 Respiratory rate 16 /min Sulma Marcelo APRN Work Phone: [facility] 02-21-2025 11:23-0400 SaO2% (BldA) [Mass fraction] 99 % Sulma Marcelo APRN Work Phone: [facility] 02-21-2025 11:23-0400 Systolic blood pressure 130 mm[Hg] Sulma Serranovalentino PIPE STEM REPAIRER Work Phone: [facility] 02-21-2025 10:12-0400 Body height 165.1 cm Sulma Serranovalentnio PIPE STEM REPAIRER Work Phone: [facility] 02-21-2025 10:12-0400 Body weight 65.77 kg Sulma Marcelo PIPE STEM REPAIRER Work Phone: [facility] 01-27-2025 09:43-0400 Body height 165.1 cm Sulma Serranovalentino PIPE STEM REPAIRER Work Phone: [facility] 01-27-2025 09:43-0400 Body mass index (BMI) [Ratio] 23.3 kg/m2 Sulma Mustafadominique PIPE STEM REPAIRER Work Phone: [facility] 01-27-2025 09:43-0400 Body weight 63.5 kg Sulma Marcelo PIPE STEM REPAIRER Work Phone: [facility] 01-27-2025 09:43-0400 Diastolic blood pressure 71 mm[Hg] Sulma Serranovalentino PIPE STEM REPAIRER Work Phone: [facility] 01-27-2025 09:43-0400 Heart rate 88 /min Sulma Serranovalentino PIPE STEM REPAIRER Work Phone: [facility] 01-27-2025 09:43-0400 Systolic blood pressure 113 mm[Hg] Sulma Serranovalentino PIPE STEM REPAIRER Work Phone: [facility] 01-05-2025 12:59-0400 Body height 165.[address] DO Work Phone: [facility] 01-05-2025 12:59-0400 Body mass index (BMI) [Ratio] 24.1 kg/m2 Radha Ct DO Work Phone: [facility] 01-05-2025 12:59-0400 Body weight 65.[address] DO Work Phone: [facility] 01-05-2025 12:59-0400 Diastolic blood pressure 86 mm[Hg] Radha Ct DO Work Phone: [facility] 01-05-2025 12:59-0400 Heart rate 77 /min Radha Ct DO Work Phone: [facility] 01-05-2025 12:59-0400 SaO2% (BldA) [Mass fraction] 99 % Radha Ct DO Work Phone: [facility] 01-05-2025 12:59-0400 Systolic blood pressure 152 mm[Hg] Radha Ct DO Work Phone: [facility] 12-13-2024 14:49-0400 Body height 165.1 cm [facility] 12-13-2024 14:49-0400 Body mass index (BMI) [Ratio] 24.7 kg/m2 [facility] 12-13-2024 14:49-0400 Body temperature 97.8 [degF] [facility] 12-13-2024 14:49-0400 Body weight 67.58 kg [facility] 12-13-2024 14:49-0400 Diastolic blood pressure 82 mm[Hg] [facility] 12-13-2024 14:49-0400 Heart rate 81 /min [facility] 12-13-2024 14:49-0400 SaO2% (BldA) [Mass fraction] 97 % [facility] 12-13-2024 14:49-0400 Systolic blood pressure 138 mm[Hg] [facility] 11-15-2024 16:57-0500 Body height 165.[address] DO Work Phone: [facility] 11-15-2024 16:57-0500 Body mass index (BMI) [Ratio] 24.3 kg/m2 Radha Ct DO Work Phone: [facility] 11-15-2024 16:57-0500 Body weight 66.[address] DO Work Phone: [facility] 11-15-2024 16:57-0500 Diastolic blood pressure 84 mm[Hg] Radha Ct DO Work Phone: [facility] 11-15-2024 16:57-0500 Systolic blood pressure 118 mm[Hg] Rdaha Ct DO Work Phone: [facility] 09-20-2024 15:05-0500 Body height 165.1 cm Jayson Carcamo TITLE CLERK [employer] Work Phone: [facility] 09-20-2024 15:05-0500 Body mass index (BMI) [Ratio] 24.46 kg/m2 Jayson Carcamo TITLE CLERK [employer] Work Phone: [facility] 09-20-2024 15:05-0500 Body temperature 98.4 [degF] Jayson Carcamo TITLE CLERK [employer] Work Phone: [facility] 09-20-2024 15:05-0500 Body weight 66.68 kg Jayson Carcamo TITLE CLERK [employer] Work Phone: [facility] 09-20-2024 15:05-0500 Diastolic blood pressure 74 mm[Hg] Jayson Carcamo TITLE CLERK [employer] Work Phone: [facility] 09-20-2024 15:05-0500 Heart rate 72 /min Jayson Carcamo TITLE CLERK [employer] Work Phone: [facility] 09-20-2024 15:05-0500 Respiratory rate 18 /min Jayson Carcamo TITLE CLERK [employer] Work Phone: [facility] 09-20-2024 15:05-0500 SaO2% (BldA) [Mass fraction] 99 % Jayson Carcamo TITLE CLERK [employer] Work Phone: [facility] 09-20-2024 15:05-0500 Systolic blood pressure 132 mm[Hg] Jayson Carcamo TITLE CLERK [employer] Work Phone: [facility] 06-29-2024 16:22-0400 Body height 165.[address] DO Work Phone: [facility] 06-29-2024 16:22-0400 Body mass index (BMI) [Ratio] 22.47 kg/m2 Radha Ct DO Work Phone: [facility] 06-29-2024 16:22-0400 Body weight 61.[address] DO Work Phone: [facility] 06-29-2024 16:22-0400 Diastolic blood pressure 90 mm[Hg] Radha Ct DO Work Phone: [facility] 06-29-2024 16:22-0400 Heart rate 76 /min Radha Ct DO Work Phone: [facility] 06-29-2024 16:22-0400 SaO2% (BldA) [Mass fraction] 96 % Radha Ct DO Work Phone: [facility] 06-29-2024 16:22-0400 Systolic blood pressure 138 mm[Hg] Radha Ct DO Work Phone: [facility] 06-14-2024 14:50-0400 Body height 165.1 cm Jayson Carcamo TITLE CLERK [employer] Work Phone: [facility] 06-14-2024 14:50-0400 Body mass index (BMI) [Ratio] 23.8 kg/m2 Jayson Carcamo TITLE CLERK [employer] Work Phone: [facility] 06-14-2024 14:50-0400 Body temperature 98.4 [degF] Jayson Carcamo TITLE CLERK [employer]BI[employer] Work Phone: [facility] 06-14-2024 14:50-0400 Body weight 64.86 kg Jayson Carcamo TITLE CLERK [employer]BILE Work Phone: [facility] 06-14-2024 14:50-0400 Diastolic blood pressure 76 mm[Hg] Jayson Caracmo TITLE CLERK [employer]BILE Work Phone: [facility] 06-14-2024 14:50-0400 Heart rate 70 /min Jayson Carcamo TITLE CLERK [employer]LE Work Phone: [facility] 06-14-2024 14:50-0400 Respiratory rate 16 /min Jayson Carcamo TITLE CLERK [employer] Work Phone: [facility] 06-14-2024 14:50-0400 SaO2% (BldA) [Mass fraction] 97 % Jayson Carcamo TITLE CLERK [employer] Work Phone: [facility] 06-14-2024 14:50-0400 Systolic blood pressure 120 mm[Hg] Jayson Caracmo TITLE CLERK [employer] Work Phone: [facility] 06-01-2024 16:39-0400 Body height 165.[address] DO Work Phone: [facility] 06-01-2024 16:39-0400 Body mass index (BMI) [Ratio] 21.63 kg/m2 Radha Ct DO Work Phone: [facility] 06-01-2024 16:39-0400 Body weight 58.[address] DO Work Phone: [facility] 06-01-2024 16:39-0400 Diastolic blood pressure 82 mm[Hg] Radha Ct DO Work Phone: [facility] 06-01-2024 16:39-0400 Heart rate 86 /min Radha Ct DO Work Phone: [facility] 06-01-2024 16:39-0400 SaO2% (BldA) [Mass fraction] 97 % Radha Ct DO Work Phone: [facility] 06-01-2024 16:39-0400 Systolic blood pressure 154 mm[Hg] Radha Ct DO Work Phone: [facility] 05-12-2024 15:13-0400 Body height 165.1 cm Jayson Carcamo TITLE CLERK [employer] Work Phone: [facility] 05-12-2024 15:13-0400 Body mass index (BMI) [Ratio] 23.8 kg/m2 Jayson Carcamo TITLE CLERK [employer] Work Phone: [facility] 05-12-2024 15:13-0400 Body temperature 99 [degF] Jayson Carcamo TITLE CLERK [employer] Work Phone: [facility] 05-12-2024 15:13-0400 Body weight 64.86 kg Jayson Carcamo TITLE CLERK [employer] Work Phone: [facility] 05-12-2024 15:13-0400 Diastolic blood pressure 80 mm[Hg] Jayson Carcamo TITLE CLERK [employer] Work Phone: [facility] 05-12-2024 15:13-0400 Heart rate 68 /min Jayson Carcamo TITLE CLERK [employer] Work Phone: [facility] Comment on above: 97% O2 05-12-2024 15:13-0400 Systolic blood pressure 130 mm[Hg] Jayson Carcamo TITLE CLERK [employer]BILE Work Phone: [facility] 04-09-2024 14:55-0400 Heart rate 70 /min [facility] 04-09-2024 14:55-0400 Respiratory rate 18 /min [facility] 03-01-2024 13:47-0400 Body height 165.1 cm Julianna Rosario PIPE STEM REPAIRER-[employer] SECTIONAL C[employer] MANAGER Work Phone: [facility] 03-01-2024 13:47-0400 Body mass index (BMI) [Ratio] 24.13 kg/m2 Julianna Rosario PIPE STEM REPAIRER-[employer]ICE SECTIONAL CENTER MANAGER Work Phone: [facility] 03-01-2024 13:47-0400 Body weight 65.77 kg Julianna Rosario PIPE STEM REPAIRER-[employer] SERVICE SECTIONAL CENTER MANAGER Work Phone: [facility] 03-01-2024 13:47-0400 Diastolic blood pressure 98 mm[Hg] Julianna Rosario PIPE STEM REPAIRER-[employer] SERVICE SECTIONAL CENTER MANAGER Work Phone: [facility] 03-01-2024 13:47-0400 Heart rate 69 /min Julianna Rosario PIPE STEM REPAIRER-[employer] SERVICE SECTIONAL CENTER MANAGER Work Phone: [facility] 03-01-2024 13:47-0400 Respiratory rate 16 /min Julianna Rosario PIPE STEM REPAIRER-[employer] SERVICE SECTIONAL CENTER MANAGER Work Phone: [facility] 03-01-2024 13:47-0400 SaO2% (BldA) [Mass fraction] 98 % Julianna Rosario PIPE STEM REPAIRER-[employer]ICE SECTIONAL CENTER MANAGER Work Phone: [facility] 03-01-2024 13:47-0400 Systolic blood pressure 136 mm[Hg] Julianna Rosario PIPE STEM REPAIRER-[employer] SERVICE SECTIONAL CENTER MANAGER Work Phone: [facility] 02-03-2024 09:40-0400 Body height 165.1 cm [facility] 02-03-2024 09:40-0400 Body mass index (BMI) [Ratio] 23.6 kg/m2 [facility] 02-03-2024 09:40-0400 Body temperature 97.8 [degF] [facility] 02-03-2024 09:40-0400 Body weight 64.41 kg [facility] 02-03-2024 09:40-0400 Diastolic blood pressure 62 mm[Hg] [facility] 02-03-2024 09:40-0400 Heart rate 80 /min [facility] 02-03-2024 09:40-0400 Respiratory rate 16 /min [facility] 02-03-2024 09:40-0400 SaO2% (BldA) [Mass fraction] 97 % [facility] 02-03-2024 09:40-0400 Systolic blood pressure 114 mm[Hg] [facility] 02-01-2024 13:52-0400 Body height 165.1 cm Lakshmi Solitario MD Work Phone: [facility] 02-01-2024 13:52-0400 Body mass index (BMI) [Ratio] 23.85 kg/m2 Lakshmi Solitario MD Work Phone: [facility] 02-01-2024 13:52-0400 Body weight 65 kg Lakshmi Solitario MD Work Phone: [facility] 12-29-2023 09:01-0400 Body height 165.1 cm Julianna Nienberg PIPE STEM REPAIRER-[employer] SECTIONAL CENTER MANAGER Work Phone: [facility] 12-29-2023 09:01-0400 Body mass index (BMI) [Ratio] 23.13 kg/m2 Julianna Nienberg PIPE STEM REPAIRER-[employer] SERVICE SECTIONAL CENTER MANAGER Work Phone: [facility] 12-29-2023 09:01-0400 Body weight 63.05 kg Julianna Nienberg PIPE STEM REPAIRER-[employer] SERVICE SECTIONAL CENTER MANAGER Work Phone: [facility] 12-29-2023 09:01-0400 Diastolic blood pressure 96 mm[Hg] Julianna Nienberg PIPE STEM REPAIRER-[employer] SERVICE SECTIONAL CENTER MANAGER Work Phone: [facility] 12-29-2023 09:01-0400 Heart rate 74 /min Julianna Nienberg PIPE STEM REPAIRER-[employer] SERVICE SECTIONAL CENTER MANAGER Work Phone: [facility] 12-29-2023 09:01-0400 Respiratory rate 20 /min Julianna Nienberg PIPE STEM REPAIRER-[employer] SERVICE SECTIONAL CENTER MANAGER Work Phone: [facility] 12-29-2023 09:01-0400 Systolic blood pressure 142 mm[Hg] Julianna Nienberg PIPE STEM REPAIRER-[employer] SERVICE SECTIONAL CENTER MANAGER Work Phone: [facility] 11-19-2022 13:39-0500 Blood Pressure Location Carleen CAPONE [facility] 11-19-2022 13:39-0500 Diastolic blood pressure 97 mm[Hg] Carleen CAPONE [facility] 11-19-2022 13:39-0500 Heart rate 69 /min Carleen CAPONE [facility] 11-19-2022 13:39-0500 Systolic blood pressure 150 mm[Hg] Carleen CAPONE [facility] Encounters Encounter Date Encounter Type Care Provider Facility Start: 03-02-2025 End: 03-02-2025 ambulatory Sury Briggs Ly Facility:[facility] Start: 02-21-2025 Non-patient / Non-visit Nadia Marcelo PIPE STEM REPAIRER Work Phone: [facility] Work Phone: Start: 02-21-2025 End: 02-21-2025 Admission to same day surgery center Sulma Marcelo PIPE STEM REPAIRER Work Phone: [facility] Work Phone: Start: 02-21-2025 End: 02-21-2025 ambulatory Sulma Fozia PIPE STEM REPAIRER Work Phone: [facility] Work Phone: Start: 02-13-2025 End: 02-13-2025 Patient encounter procedure Sulma Fozia PIPE STEM REPAIRER Work Phone: [facility] [place] Work Phone: Start: 02-13-2025 End: 02-13-2025 ambulatory Sulma Fozia PIPE STEM REPAIRER Work Phone: [facility] Work Phone: Start: 02-10-2025 End: 02-10-2025 Clinisync Result Encounter Radha Ct DO Work Phone: [facility] External Department Unsolicited Start: 02-10-2025 End: 02-10-2025 Clinisync Result Encounter Radha Ct DO Work Phone: [facility] External Department Unsolicited Start: 02-10-2025 Non-patient / Non-visit Nadia Marcelo PIPE STEM REPAIRER [facility] Work Phone: Start: 01-27-2025 End: 01-27-2025 Patient encounter procedure Sulma Marcelo PIPE STEM REPAIRER Work Phone: [facility] Work Phone: Start: 01-05-2025 End: 01-05-2025 Office outpatient visit [address] DO Work Phone: [facility] Comment on above: Vocal tic disorder ( CMS/HCC) (Primary Dx); Primary insomnia; Hypersomnia; Inadequate sleep hygiene Start: 01-05-2025 End: 01-05-[address] Not Available Start: 01-05-2025 Non-patient / Non-visit Nadia Marcelo PIPE STEM REPAIRER Work Phone: [facility] Work Phone: Start: 12-13-2024 End: 12-13-2024 ambulatory [facility] Work Phone: Start: 12-13-2024 End: 12-13-2024 Patient encounter procedure [facility] Work Phone: Start: 11-22-2024 End: 11-23-2024 Refill [...] flowsheet Radha Ct DO Work Phone: [facility] Start: 11-15-2024 End: 11-15-[address] DO Work Phone: [facility] Start: 09-20-2024 End: 09-20-2024 Office outpatient visit 15 minutes Jayson Carcamo TITLE CLERK AUTOMOBILE Work Phone: [facility] Comment on above: Occult blood in stoo ls (Primary Dx) Start: 09-20-2024 End: 09-20-2024 ambulatory JAYSON CARCAMO Not Available Start: 09-20-2024 End: 09-20-2024 Bamboo flowsheet Jayson Griffinzpatrick TITLE CLERK AUTOMOBILE Work Phone: [facility] Start: 09-20-2024 End: 09-20-2024 Bamboo flowsheet Jayson Carcamo TITLE CLERK AUTOMOBILE Work Phone: [facility] Start: 09-20-2024 End: 09-20-2024 Clinisync Result Encounter Jayson Mcgarrypatrick TITLE CLERK AUTOMOBILE Work Phone: [facility] External Department Unsolicited Start: [...] 06-14-2024 Office outpatient visit 15 minutes Jayson Mcgarrypatrick TITLE CLERK AUTOMOBILE Work Phone: [facility] Comment on above: Essential hypertensi on (CMS/HCC) (Primary Dx); Insomnia, unspecified type Start: 06-14-2024 End: 06-14-2024 ambulatory JAYSON CARCAMO Not Available Start: 06-14-2024 End: 06-14-2024 Bamboo flowsheet Jayson Carcamo TITLE CLERK AUTOMOBILE Work Phone: [facility] Start: 06-14-2024 End: 06-14-2024 Bamboo flowsheet Jayson Carcamo TITLE CLERK AUTOMOBILE Work Phone: [facility] Start: 06-01-2024 End: 06-01-2024 Office consultation new/estab patient [address] DO Work Phone: [facility] Comment on above: Primary insomnia (Pr imary Dx); Hypersomnia; Sleep disturbance; Alcohol use disorder Start: 06-01-2024 End: 06-01-[address] Not Available Start: 05-31-2024 End: 05-31-2024 Clinisync Result Encounter Jayson Carcamo TITLE CLERK AUTOMOBILE Work Phone: [facility] Department Unsolicited Start: 05-31-2024 End: 05-31-2024 Clinisync Result Encounter Jayson Carcamo TITLE CLERK AUTOMOBILE Work Phone: [facility] External Department Unsolicited Start: [...] Cancer. So he is asking for testing. Fabric Inspector recommended he schedule an appt but he said the soonest he could get in was two weeks out. Please advise -SCR) Start: 05-12-2024 End: 05-12-2024 Office outpatient visit 25 minutes Jayson Carcamo TITLE CLERK AUTOMOBILE Work Phone: [facility] Comment on above: Moderate persistent asthma without complication (CMS/HCC) (Primary Dx); Essential hypertension (CMS/HCC); Acute deep vein thrombosis of left popliteal vein (CMS/HCC); Insomnia, unspecified type; Non-recurrent acute suppurative otitis media of left ear without spontaneous rupture of tympanic membrane Start: 05-12-2024 End: 05-12-2024 ambulatory JAYSON MCGARRYPATRICK Not Available Start: 05-12-2024 End: 05-12-2024 Bamboo flowsheet Jayson Carcamo TITLE CLERK AUTOMOBILE Work Phone: [facility] Start: 05-12-2024 End: 05-12-2024 Bamboo flowsheet Jayson Carcamo TITLE CLERK AUTOMOBILE Work Phone: [facility] Start: 04-14-2024 End: 04-14-2024 ambulatory MICHAEL GARCIA Not Available Start: 04-09-2024 End: 04-09-2024 ambulatory [facility] Work Phone: Start: 04-09-2024 End: 04-09-2024 Patient encounter procedure [facility] Work Phone: Start: 04-06-2024 End: 04-06-2024 ambulatory PACO SMART Not Available Start: 04-04-2024 End: 04-04-2024 ambulatory PACO SMART Not Available Start: 03-28-2024 End: 03-28-2024 ambulatory PACO SMART Not Available Start: 03-24-2024 End: 03-24-2024 ambulatory PACO SMART Not Available Start: 03-22-2024 End: 03-23-2024 ambulatory NELA KYM Not Available Start: 03-14-2024 End: 03-14-2024 ambulatory ROWLAND CYNTHIAD Not Available Start: 03-08-2024 End: 03-08-2024 ambulatory PACO SMART Not Available Start: 03-01-2024 End: 03-01-2024 Office outpatient visit 15 minutes Desirae Lomax PA-C Work Phone: [facility] Comment on above: Lumbar disc disease with radiculopathy (Primary Dx) Start: 03-01-2024 End: 03-01-2024 ambulatory JULIANNA ROSARIO [facility] Start: 02-10-2024 End: 02-10-2024 ambulatory ROWLAND ANCAWAD Not Available Start: 02-04-2024 End: 02-04-2024 ambulatory SHAIKH MCKINLEY Not Available Start: 02-03-2024 End: 02-03-2024 ambulatory [facility] Work Phone: Start: 02-03-2024 End: 02-03-2024 Patient encounter procedure [facility] Vascular Surgery Work Phone: Start: 02-01-2024 End: 02-01-2024 ambulatory BILAL ANDREW BUTT Facility:[facility] Start: 02-01-2024 End: 02-01-2024 Office outpatient new 30 minutes Bilal Andrew Butt Work Phone: [facility] Comment on above: Lumbar disc herniati on with radiculopathy; Degeneration of lumbar intervertebral disc Start: 01-28-2024 End: 01-28-2024 ambulatory REBECCA TATPASTORA Not Available Start: 01-26-2024 End: 01-26-2024 ambulatory REBECCA TATTERSALL Not Available Start: 01-19-2024 End: 01-19-2024 Telephone encounter [facility] Work Phone: [facility] Start: 01-19-2024 End: 01-19-2024 ambulatory REBECCA TATTERSALL Not Available Start: 01-15-2024 End: 01-15-2024 ambulatory JESSE Agus [facility] Start: 01-14-2024 End: 01-14-2024 ambulatory PACO SMART Not Available Start: 01-13-2024 [facility] Start: 01-11-2024 End: 01-11-2024 Telephone encounter Lauryn Ratliff CNA [facility] Start: 01-11-2024 End: 01-11-2024 ambulatory SHAIKH MCKINLEY Not Available Start: 01-07-2024 Telephone encounter Desirae cali PIPE STEM REPAIRER.POSTAL SERVICE SECTIONAL CENTER MANAGER Work Phone: [facility] Comment on above: Plug Wirer - O ther Medication Problem Start: 01-07-2024 End: 01-07-2024 Emergency department patient visit AMY FARMER Facility:[facility] Start: 01-07-2024 End: 01-07-2024 ambulatory ROBERT CONSTANTINO Facility:[facility] Start: 01-07-2024 End: 01-07-2024 Patient encounter procedure Desirae Lo PIPE STEM REPAIRER.POSTAL SERVICE SECTIONAL CENTER MANAGER Work Phone: [facility] Comment on above: Lumbar disc herniati on with radiculopathy (Primary Dx); Degeneration of lumbar intervertebral disc; Left leg swelling Start: 01-04-2024 Telephone encounter Desirae cali PIPE STEM REPAIRER.POSTAL SERVICE SECTIONAL CENTER MANAGER Work Phone: [facility] Comment on above: Plug Wirer - O ther Start: 12-29-2023 End: 12-29-2023 Office outpatient new 30 minutes Julianna M Kenyetta PIPE STEM REPAIRER-POSTAL SERVICE SECTIONAL CENTER MANAGER Work Phone: [facility] Comment on above: Lumbar disc disease with radiculopathy (Primary Dx) Start: 12-29-2023 End: 12-29-2023 ambulatory [facility] Start: 12-18-2023 End: 01-21-2024 Telephone encounter Cynthia Miller RN [facility] Comment on above: Pain Management Start: 10-21-2023 Telephone encounter Florentin Dupont MA [facility] Comment on above: Med Refill (VIAGRA R EFILL) Start: 04-06-2023 ambulatory Carleen CAPONE Facili ty:[facility] [place] Start: 12-09-2022 ambulatory Carleen CAPONE Facili ty:[facility] Start: 12-05-2022 End: 12-06-2022 ambulatory Carleen CAPONE Facility:CD:[id number] Start: 11-26-2022 End: 11-27-2022 ambulatory Carleen CAPONE Facility:[facility] Start: 11-26-2022 End: 11-27-2022 ambulatory LESLY ZUNIGA Facility:[facility] Start: 11-26-2022 End: 11-26-2022 Lab Drop off Carleen CAPONE [facility] Start: 11-26-2022 End: 11-26-2022 Patient encounter procedure LESLY EFRAIN [facility] Start: 11-20-2022 End: [address] CARLEEN CAPONE . Facility: Start: 11-19-2022 End: 11-20-2022 ambulatory Carleen CAPONE Facility:[facility] Start: 11-19-2022 End: 11-19-2022 Patient encounter procedure Carleen CAPONE [facility] Start: 11-16-2022 End: 11-16-2022 ambulatory TIM David WEAVER Facility: Procedures Date Procedure Procedure Detail Performing Clinician Start: 02-21-2025 Esophagogastroduodenoscopy Sulma Marcelo APRN Work Phone: Start: 02-13-2025 Ultrasonography of abdomen Sulma Marcelo APRN Work Phone: Start: 02-10-2025 [address] THYROID STIM HORMONE Radha Ct DO Work Phone: Start: 09-20-2024 ALL CBC WITH AUTO DIFF Jayson Carcamo TITLE CLERK AUTOMOBILE Work Phone: Start: 05-31-2024 ALL CBC WITH AUTO DIFF Jayson Carcamo TITLE CLERK AUTOMOBILE Work Phone: Start: 10-19-2023 Colonoscopy Florentin galan MA Start: 07-01-2023 Colonoscopy Lauryn hensonza COPYMAN Colonoscopy Carleen CAPONE Vasectomy Carleen CAPONE Plan of Treatment Date Care Activity Detail Author Start: 10-19-2033 Screening for malign ant neoplasm of colon [facility] Start: 07-01-2033 Screening for malign ant neoplasm of colon [facility] Start: 07-01-2028 Screening for malign ant neoplasm of colon Colonoscopy [facility] Start: 01-06-2027 Diabetes Screening Diabetes Screenin [facility] Start: 05-15-2025 Influenza vaccination Influenz a Vaccine (Season Ended) [facility] Start: 03-01-2025 Adult BMI Screening Adult BMI Screen ing [facility] Start: 03-01-2025 Tobacco Screening Tobacco Screening [facility] Start: 02-21-2025 [facility] Start: 02-07-2025 End: 02-07-2025 Patient encounter procedure [facility] Start: 01-20-2025 Screening for malign ant neoplasm of colon [facility] Start: 01-05-2025 End: 01-05-2026 Thyrotropin [Units/volume] in Serum or Plasma TSH Lab Routine Vocal tic disorder (CMS/HCC) Expected: 01/05/2025 (Approximate), Expires: 01/05/2026 [facility] Work Phone: Comment on above: Expected: 01/05/2025 (Approximate), Expires: 01/05/2026 Start: 12-28-2024 Adult BMI Screening Adult BMI Screen ing [facility] Start: 12-28-2024 Tobacco Screening Tobacco Screening [facility] Start: 12-20-2024 End: 12-20-2024 Patient encounter procedure 12/20/2024 3:00 PM EDT Office Visit [facility] [address] [place] [address] Jayson Carcamo, VIKAS [address] [place] [phone] [facility] Start: 11-15-2024 End: 11-15-2024 Patient encounter procedure 11/15/2024 5:00 PM EST Office Visit [facility] [address] [place] [address] Radha Fofana DO [address] [place] [id number] Arrived [facility] Comment on above: Arrived Start: 11-15-2024 Influenza vaccination Influenza Vacc ine (#1) [facility] Comment on above: Postponed from 05/15 (Patient Refused) Start: 09-28-2024 End: 09-28-2024 Patient encounter procedure [facility] [address] [facility] Start: 09-22-2024 End: 09-22-2024 Patient encounter procedure 09/22/2024 3:00 PM EST Office Visit [facility] [address] [place] [address] Jayson Carcamo, TITLE CLERK AUTOMOBILE [address] [place] [address] [facility] Start: 09-20-2024 End: 09-20-2024 Patient encounter procedure 09/20/2024 3:00 PM EST Office Visit [facility] [address] [place] [address] Jayson Carcamo, TITLE CLERK AUTOMOBILE [address] [place] [address] Arrived [facility] Comment on above: Arrived Start: 09-20-2024 End: [...] 08/04/2024 3:30 PM EST Office Visit [facility] [address] [place] [phone] Jayson Carcamo, VIKAS [address] [place] [phone] [facility] Start: 06-29-2024 End: 06-29-2024 Patient encounter procedure 06/29/2024 4:15 PM EDT Office Visit [facility] [address] [place] [phone] Radha Fofana, DO [address] [place] [address] [facility] Start: 06-14-2024 End: 06-14-2024 Patient encounter procedure [facility] Comment on above: Arrived Start: 06-09-2024 End: 06-09-2024 Patient encounter procedure 06/09/2024 11:00 AM EDT Office Visit [facility] [address] [place] [phone] Jayson Carcamo, TITLE CLERK AUTOMOBILE [address] [facility] [place] [phone] [facility] Start: 06-01-2024 End: 06-01-2024 Patient encounter procedure 06/01/2024 4:30 PM EDT Office Visit [facility] [address] [place] [phone] Radha Fofana, [address] [place] [address] [facility] Start: 05-31-2024 End: 05-31-2024 Patient encounter procedure 05/31/2024 3:00 PM EDT Office Visit [facility] [address] [place] [phone] Julianna Rosario, PIPE STEM REPAIRER-POSTAL SERVICE SECTIONAL CENTER MANAGER [address] [place] [address] [facility] Start: 05-30-2024 End: 05-30-2025 CBC W Auto Differential panel - Blood CBC and differential Lab Routine Change in consistency of stool Family history of pancreatic cancer Essential hypertension (CMS/HCC) Expected: 05/30/2024 (Approximate), Expires: 05/30/2025 [facility] Work Phone: Comment on above: Expected: 05/30/2024 (Approximate), Expires: 05/30/2025 Start: 05-30-2024 End: 05-30-2025 Comprehensive metabolic 2000 panel - Serum or Plasma Comprehensive metabolic panel Lab Routine Change in consistency of stool Family history of pancreatic cancer Essential hypertension (CMS/HCC) Expected: 05/30/2024 (Approximate), Expires: 05/30/2025 [facility] Comment on above: Expected: 05/30/2024 (Approximate), Expires: 05/30/2025 Start: 05-15-2024 Influ[facility] Start: 05-12-2024 End: 05-12-2024 Patient encounter procedure 05/12/2024 3:30 PM EDT [facility] [address] [place] [phone] Jayson Carcamo NP [address] [place] [phone] Arrived [facility] Comment on above: Arrived Start: 05-12-2024 End: 05-12-2025 CBC W Auto Differential panel - Blood CBC and differential Lab Routine Essential hypertension (CMS/HCC) Expected: 05/12/2024 (Approximate), Expires: 05/12/2025 [facility] Work Phone: Comment on above: Expected: 05/12/2024 (Approximate), Expires: 05/12/2025 Start: 05-06-2024 End: 05-06-2024 Patient encounter procedure 05/06/2024 2:00 PM EDT Office Visit [facility] [address] [place] [phone] Lakshmi Solitario MD [address] [place] [address] follow up 3 months [facility] Comment on above: follow up 3 months Start: 03-13-2024 Influenza vaccination Influenza Vacc ine (#1) [facility] Comment on above: Postponed from 05/15 (Patient Refused) Start: 02-02-2024 End: 02-02-2024 Patient encounter procedure 02/02/2024 9:45 AM EDT Office Visit [facility] [address] [facility] [facility] [place] [phone] Julianna Rosario, PIPE STEM REPAIRER-POSTAL SERVICE SECTIONAL CENTER MANAGER [address] [place] [address] [facility] Start: 01-15-2024 End: 01-15-2024 Admission to same day surgery center 01/15/2024 10:08 AM EDT - 01/15/2024 10:14 AM EDT Surgery [facility] [address] [place] [phone] Jesse Collado MD [address] [place] [id number] INJECTION SPINE TRANSFORAMINAL LEFT L3, L4 NERVE ROOT [51400 (CPT )] [facility] Comment on above: INJECTION SPINE YOO SFORAMINAL LEFT L3, L4 NERVE ROOT [38996 (CPT )] Start: 01-15-2024 End: 01-15-2024 Njx anes&/strd w/img tfrml edrl lmbr/sac 1 lvl INJECTION SPINE TRANSFORAMINAL Lumbar disc disease with radiculopathy 01/15/2024 10:08 AM EDT 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 [address] [place] [address] Ruptured disc pinched nerve [facility] Comment on above: Ruptured disc pinche d nerve Start: 11-22-2023 Prostate specific antigen measurement Prostate Cancer Screening Discussion [facility] Start: 09-14-2023 Behavioral Health Screening Behavioral Health Screening [facility] Start: 05-15-2023 Covid-19 Vaccine ( season) Covid-19 Vaccine ( season) [facility] Start: 2018 Administration of varicella zoster vaccine Zoster (Shingles) Vaccine (1 of 2) [facility] Start: 2018 Shingrix Vaccine (1 of 2) Shingrix Vaccine (1 of 2) [facility] Start: 2013 Diabetes Screening Diabetes Screenin g [facility] Start: 2013 Screening for malign ant neoplasm of colon [facility] Start: 11-22-2003 Lipid panel Lipid Screening [facility] Start: 11-22-1987 DTaP,Tdap and Td Vaccines (1 - Tdap) DTaP,Tdap and Td Vaccines (1 - Tdap) [facility] Start: 11-22-1987 Hepatitis B Vaccine (1 of 3 - 19+ 3-dose series) Hepatitis B Vaccine (1 of 3 - 19+ 3-dose series) [facility] Start: 11-22-1987 Urine microalbumin profile DTaP,Tdap,Td Vaccine (1 - Tdap) [facility] Start: 1986 Hepatitis C screening Hepatitis C Sc jimena [facility] Start: 1986 HIV screening HIV Screening [facility] Start: 1980 Depression Screening Depression Scre ening [facility] Start: 1980 Tobacco Screening Tobacco Screening [facility] Start: 1968 Screening for malign ant neoplasm of colon [facility] Comprehensive metabo lic 1999 panel - Serum or Plasma Comprehensive metabolic panel Lab Routine Essential hypertension (CMS/HCC) Ordered: 05/12/2024 [facility] Comment on above: Ordered: 05/12/2024 Comprehensive metabo lic 1999 panel - Serum or Plasma [facility] Njx anes&/strd w/img tfrml edrl lmbr/sac 1 lvl INJECTION SPINE TRANSFORAMINAL Lumbar disc disease with radiculopathy [facility] Patient Education Hiatal hernia Esophagitis Know your Meds [facility] Work Phone: [facility] Immunizations Immunization Date Immunization Notes Care Provider Tom mcmullen 06-15-2018 influenza virus vaccine, unspecified formulation Carleen CAPONE [facility] 06-15-2018 Influenza, injectabl e, Madin Queenie Canine Kidney, quadrivalent with preservative Florentin Dupont MA [facility] Payers Date Payer Category Payer Self-pay 2022 Private Health Insurance [id number] 2022 Unknown [id number] 1968 Unknown [id number] 2.16.84 0.1.925309.3.579.2.593 1968 Unknown [id number] 2.16.84 0.1.197863.3.579.2.593 1968 Unknown [id number] 2.16.8 40.1.220569.3.579.2.727 1968 Unknown [id number] 2.16.8 40.1.906687.3.579.2.727 1968 Unknown [id number] 2.16.8 40.1.408588.3.579.2.727 1968 Unknown [id number] 2.16.8 40.1.853820.3.579.2.727 1968 Unknown [id number] 2.16.8 40.1.747204.3.579.2.727 1968 Unknown [id number] 2.16.8 40.1.833649.3.579.2.727 1968 Unknown [id number] 2.16.8 40.1.551351.3.579.2.727 1968 Unknown [id number] 2.16.8 40.1.741597.3.579.2.1286 1968 Unknown [id number] 2.16.8 40.1.618046.3.579.2.1286 1968 Unknown [id number] 2.16.8 40.1.128396.3.579.2.1286 1968 Unknown [id number] 2.16.8 40.1.387772.3.579.2.1286 1968 Unknown [id number] 2.16.84 0.1.556173.3.579.2.1259 1968 Unknown [id number] 2.16.84 0.1.070057.3.579.2.9 1968 Unknown [id number] 2.16.84 0.1.962748.3.579.2.9 1968 Unknown [id number] 2.16.84 0.1.076022.3.579.2.1258 1968 Unknown [id number] 2.16.84 0.1.675816.3.579.2.1258 1968 Unknown [id number] 2.16.84 0.1.617355.3.579.2.1258 1968 Unknown [id number] 2.16.84 0.1.931576.3.579.2.1258 1968 Unknown [id number] 2.16.84 0.1.192568.3.579.2.1258 1968 Unknown [id number] 2.16.84 0.1.060538.3.579.2.1258 1968 Unknown [id number] 2.16.84 0.1.319038.3.579.2.1258 1968 Unknown [id number] 2.16.84 0.1.931615.3.579.2.1258 1968 Unknown [id number] 2.16.84 0.1.536717.3.579.2.1258 1968 Unknown [id number] 2.16.84 0.1.983450.3.579.2.1258 1968 Unknown [id number] 2.16.84 0.1.257718.3.579.2.1258 1968 Unknown [id number] 2.16.84 0.1.033066.3.579.2.1258 1968 Unknown [id number] 2.16.84 0.1.256428.3.579.2.1258 1968 Unknown [id number] 2.16.84 0.1.897603.3.579.2.1259 1968 Unknown [id number] 2.16.84 0.1.289300.3.579.2.9 1968 Unknown [id number] 2.16.84 0.1.580524.3.579.2.9 1968 Unknown [id number] 2.16.84 0.1.808391.3.579.2.9 1968 Unknown [id number] 2.16.84 0.1.676912.3.579.2.9 1968 Unknown [id number] 2.16.84 0.1.183740.3.579.2.1259 1959 Unknown [id number] Unknown [place] [id number] Unknown [id number] 2.16.8 40.1.013154.3.579.2.531 Unknown [id number] 2.16.8 40.1.351493.3.579.2.531 Unknown [id number] 2.16.8 40.1.893845.3.579.2.531 Social History Date Type Detail Facility Start: 11-19-2022 End: 12-13-2024 Tobacco smoking status Never smoked tobacco (finding) [facility] Tobacco smoking status Never [facility] Start: 08-31-2023 End: 12-24-2023 Sex Assigned At Male [facility] Start: 08-31-2023 End: 12-29-2023 Tobacco use and exposure Smokeless tobacco non-user [facility] Start: 09-29-2023 End: 01-05-2025 Alcohol intake Current drinker of alcohol (finding) [facility] Start: 09-29-2023 End: 12-24-2023 Alcohol intake [facility] Start: 1970 Sex Assigned At Not on file [facility] Start: 1970 Sex Assigned At Male [facility] Are you now , , , , [...] smoking status NHIS Tobacco smoking consumption unknown [facility] Start: 12-13-2024 End: 02-21-2025 Sex Male (finding) [facility] NEGATED: Highlighted rowStart: NINF History of tobacco use Passive smoker [facility] Goals Date Patient Goal Desired Activity /State Functional Status Date Assessment Result Facility 11-19-2022 Functional Status N/A [facility] Clinical Notes 11-19-2022 to 02-21-2025 Radha Fofana DO - 01/05/2025 12:45 PM EDT Note Date & Type Note Facility 02-21-2025 Procedure note [facility] 02-21-2025 History and physi felicitas note [facility] 02-13-2025 Radiology Diagnostic study note [place] [address] Ultrasound Report Signed Patient: Ronny Reeves MR#: [id number] : 1970 Acct:[id number] Age/Sex: 54 / M ADM Date: 5 Loc: Room: Type: [facility] Attending Dr: Sury Champion DO Ordering Provider: Sury Champion DO Date of Service: 02/13/25 US/US abdomen limited: F10.10 - Alcohol abuse, uncomplicated Copies to: Sury Champion DO~ LIMITED ABDOMINAL ULTRASOUND WITH ASSESSMENT OF RIGHT UPPER QUADRANT HISTORY: Dark stools for 6 months. Alcohol abuse COMPARISON: None Negative ultrasound Lopez's sign reported. COMMON BILE DUCT: Normal caliber. No intraluminal abnormality. LIVER CONTOUR: Normal. LIVER PARENCHYMA: Mild hepatic steatosis HEPATIC LESION: None INTRAHEPATIC BILIARY DUCTAL DILATATION No ductal dilatation identified. GALLSTONES: No shadowing gallstones. GALLBLADDER SLUDGE: Nonshadowing echogenic focus dependently portion gallbladder. May represent sludge. GALLBLADDER WALL: Normal thickness PERICHOLECYSTIC FLUID: None Pancreas: Overlying bowel gas limiting assessment PORTAL VEIN: Normal blood flow. Liver size: Normal No RIGHT hydronephrosis identified. US/US abdomen limited IMPRESSION: Possible gallbladder sludge. No gallbladder wall thickening. No biliary duct dilatation. Impression dictated by: Nael Ramos M.D. 02/13/2025 5:15 PM Dictation Location: [place] [address] Tech: Sabiha Magallanes Transcribed By: MADAN 02/13/251714 Dictated By: Nael Ramos DO 02/13/251712 Signed By: 02/13/251714 [facility] 01-05-2025 History of Present illness Narrative Images from the original note [...] so we can add in some iron [id number]. We will go ahead and do a [...] Monitor the tick TSH Add in iron fuqc-[id number] about 50 mg daily Try to suppress [...] clinic: 4 weeks documented in this encounter [facility] 12-13-2024 Evaluation note Diagnosis Onset Date Resolution Abdominal pain acute December 13, 2024 2:46pm Alcohol abuse acute December 13, 2024 2:46pm Deep venous thrombosis of left popliteal vein acute December 2:46pm Degenerative disc disease acute December 13, 2024 2:46pm Encounter for screening for malignant neoplasm of prostate acute December 13, 2024 2:46pm Essential (primary) hypertension acute December 13, 2024 2:46pm Insomnia, unspecified acute Dec 2:46pm Alcohol abuse acute January 27, 2 025 9:28am Complaint of melena acute January 122024 9:28am [facility] Work Phone: [phone]) 474-177003-12-2025 Telephone encounter Note* Telephone Encounter - Raudel Hall MA - 11/23/2024 9:34 AM EDT 11/15/2024 Continue the Lunesta 3 mg 1 about 30 minutes before bedtime OARRS reviewed due 11/26/2024 [id number] Miscellaneous Notes* Telephone Encounter - Raudel Hall MA - 11/23/2024 9:34 AM EDT 11/15/2024 Continue the Lunesta 3 mg 1 about 30 minutes before bedtime OARRS reviewed due 11/26/2024 documented in this encounterCenter[facility] HospitalTsaycmzixm93-22-6753 History of Present illness Narrative* Radha Fofana, - 11/15/2024 5:00 PM EST Images from the original note were not [...] shift. 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 He appears to havea sleep onset and sleep maintenance insomnia. We switched him off of Ambien CR to Lunesta. This appears to be working better. He is still cutting the pill in half and then taking half of it through the night. He is still drinking alcohol too frequently which I feel is disrupting his sleep. He stillhas poor sleep hygiene with the TV on [...] to clinic: 4 weeks documented in this encounter[facility] HospitalUwelndoevf85-12-4426 History of Present illness Narrative* Jayson Carcamo NP - 09/20/2024 3:27 PM ESTAssociated Problem(s): Occult blood in stools Pt reports [...] not report to ER and instead waited tofollow up at today's OV. Denies any recurrence of blood in stool since that episode. Denies abdominal pain or distention/blood urine./back pain/taking any iron or eating dark green or leafy vegetables recently before occurrence. Last colonoscopy done 12/2023. Will refer patient to GI. Advised pt if occurs again or develops BRBPR to report immediately to ER. Pt verbalized understanding. * Jayson Carcamo NP - 09/20/2024 3:00 PM EST Images from the original note were not [...] not report to ER and instead waited tofollow up at today's OV. Denies any recurrence [...] Neurological: Negative for dizziness, tremors, syncope, weakness, light- headedness and headaches. Psychiatric/Behavioral: Negative for decreased concentration and suicidal ideas. The patient is notnervous/anxious. Hematological: Does not bruise/bleed easily. Endocrine: Negative [...] not report to ER and instead waited tofollow up at today's OV. Denies any recurrence [...] + transferrin + TIBC documented in this [facility]01-07-2025 Instructions* Patient Instructions* Jayson Carcamo NP - 09/20/2024 3:00 PM EST Have lab work and occult stool done. Referral sent to GI- Dr. Bashir, they will call you! If dark tarry stools occurs again or if you develop bright red blood per rectum report immediately to ER Immediately!!! documented in this [facility]10-16-2024 History of Present illness Narrative* Radha Fofana DO - 06/29/2024 4:15 PM EDT Images from the original note were not included. Chief Complaint Patient presents with primary insomnia Subjective Ronny Reeves, 53 y.o., male here for follow up Patient states that he stopped the Ambien as directed an started Lunesta. He is taking Melatonin atdinner. He states that the Lunesta is helping him sleep better. He states that he remembers his dreams now. He is sleeping 7 hours a night now. He is still waking up in the middle of the night but isable to go back to sleep. His dog [...] lot. 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 Today he is a little tired but [...] Neurologic: No new headaches or dizziness Vitals: 06/29/24 1622 BP: 138/90 Pulse: 76 SpO2: 96% [...] hypersomnia that is multifactorial. He appears to havea sleep onset and sleep maintenance insomnia. He is on Ambien CR however he is cutting the pill andcrushing it therefore the CR component is null [...] some sleep hygiene. He has decreased his alco hol consumption. He has turned the TV off [...] to clinic: 4 weeks documented in this encounterCenterPo[facility] HospitalBifzdvahqx29-29-0910 History of Present illness Narrative* Jayson Carcamo NP - 06/14/2024 3:36 PM EDTAssociated Problem(s): Essential hypertension (CMS/HCC) Currently taking no medications; Pt was prescribed [...] log back with them to next visit. * Jayson Carcamo NP - 06/14/2024 3:35 PM EDTAssociated Problem(s): Insomnia Went to see Dr. Fofana- was started on Lunesta; States he is now getting REM sleep. Feels much better. States he is having better BM's and urinating better; States he is gaining weight, has slowed down on drinking; Feels significantly better overall. Follows up again on 06/[address] Fofana * Jayson Carcamo NP - 06/14/2024 3:00 PM EDT Images from the original note were not [...] Neurological: Negative for dizziness, tremors, syncope, weakness, light- headedness and headaches. Psychiatric/Behavioral: Negative for decreased concentration and suicidal ideas. The patient is notnervous/anxious. Hematological: Does not bruise/bleed easily. Endocrine: Negative [...] 06/[address] Fofana documented in this encounterCenterPo[facility] HospitalVsswpnijkv18-00-7463 Instructions* Patient Instructions* Jayson Carcamo NP - 06/14/2024 3:00 PM EDT Labs look good! Keep up the good work!!! Keep taking Probiotics (Lactobacillus, Bifidobacterium, Acidophilus, etc.) documented in this encounterCenterPointe HospitalNsuoerskrb47-50-8068 History of Present illness Narrative* Radha Fofana, - 06/01/2024 4:30 PM EDT Images from the original note were not [...] work. He has nights where he doesn't sleepat all. He states that he will average about 5 hours of sleep a night that is broken. He wakes up and takes the other half of his Ambien. He takes half before he goes to bed and between 3-4am he willwake up and take the other half. He states that he drinks 3-4 twisted teas per day 6 days a week. He has cut this back to 3 days a week now. He has been gradually cutting back on that. He states that he has increased stress as he isgoing through a divorce. He was for 32 years. He is not getting much exercise. He works day shift. He used to flip around a lot. 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 It can be hard to fall asleep. He has to get up around 5:30 for hisday. He has been on Ambien for about [...] he is cutting the pill and crushing ittherefore the CR component is no and void. [...] may benefit from a polysomnogram to assess f or things like periodic limb movement disorder however we need to get him sleeping 1st. I do suspect some of this is also psychological in the fact that he went away and slept fairly well on bed in atent when he was out of the home [...] his sleep clock better. He tried it atbedtime and it was not helpful which many [...] to clinic: 4 weeks documented in this encounterCenterPointe HospitalJlwoyxvkfj89-61-1463 Telephone encounter Note* Telephone Encounter - Florentin Dupont MA - 05/30/2024 1:10 PM EDT Pt called requesting a blood test for Liver. He said he has had yellow foamy stool, metal taste in mouth, anxiety, nausea and indigestion. He is concerned because his father had Pancreatic Cancer. Sohe is asking for testing. Fabric Inspector recommended he schedule an appt but he said the soonest he could get in was two weeks out. Please advise -SCR [facility] HospitalUoauwqbmtt06-45-8422 Miscellaneous Notes* Telephone Encounter - Florentin Dupont MA - 05/30/2024 1:10 PM EDT Pt called requesting a blood test for Liver. He said he has had yellow foamy stool, metal taste in mouth, anxiety, nausea and indigestion. He is concerned because his father had Pancreatic Cancer. Sohe is asking for testing. Fabric Inspector recommended he schedule an appt but he said the soonest he could get in was two weeks out. Please advise -SCR documented in this encounterCenterPointe HospitalFlmcwiegiv82-00-3478 History of Present illness Narrative* Jayson Carcamo NP - 05/12/2024 4:51 PM EDTAssociated Problem(s): Moderate persistent asthma without complication (CMS/HCC) Only using rescue inhaler (Albuterol) Stopped Advair. Didn't think he needed it. Feels symptoms are well controlled currently. Mod-severe obstructive lung disease with positive bronchodilator response on PFTS 08/04 * Jayson Carcamo NP - 05/12/2024 4:51 PM EDTAssociated Problem(s): Insomnia Currently taking Ambien; Would like to discontinue but is concerned about sleep habits. Requests to see sleep medicine. Referral sent. * Jayson Carcamo NP - 05/12/2024 4:49 PM EDTAssociated Problem(s): Acute deep vein thrombosis of left popliteal vein (CMS/HCC) Diagnosed 01/07/24 On Eliquis , provoked. Will need rx for a minimum of 3 months. Stopped using Eliquis all together. Did not complete ultrasound, declines interest Reiterated/educated patient on the importance of using Eliquis and completing imaging studies as prescribed. * Jayson Carcamo NP - 05/12/2024 3:30 PM EDT Images from the original note were not [...] Neurological: Negative for dizziness, tremors, syncope, weakness, light- headedness and headaches. Psychiatric/Behavioral: Negative for decreased concentration [...] (Augmentin) 875-125 MG tablet documented in this encounterCenterPointe HospitalSjvioafcvo04-46-8272 Instructions* Patient Instructions* Jayson Carcamo NP - 05/12/2024 3:30 PM [...] if you need anything! documented in this encounterCenterPointe HospitalFvwgrfmszw08-82-0342 History of Present illness Narrative* Julianna Rosario, PIPE STEM REPAIRER-POSTAL SERVICE SECTIONAL CENTER MANAGER - 03/01/2024 1:45 PM EDT [facility] [address] [place] [address] Patient: Ronny Reeves Sex: male : 1970 [...] Delaney but consulted with Dr. Ocasio at [facility] instead. Per patient Dr. Ocasio recommends interventional pain injections. Chief Complaint Patient presents with Back Pain HPI: Physical therapy started 12/25/2023 at [facility] in [place] has completed two visits which increases pain [...] The pain is severe. The pain is Worseduring the day (depends on what patient is [...] work, he was taken off of work sothat he can recover and today he is [...] and then along with anxiety. His symptoms aregradually improving and he would prefer to avoid medications at this time. Asthma 12/29/2023 BPH with urinary obstruction 12/29/2023 Essential hypertension 08/24/2012 Last Assessment & Plan: Well controlled on Amlodipine but elevated today. This could be due to pain also as he seems reallyuncomfortable and in pain Monitor for now. No [...] He is also going through a difficult timein Joint pain Left hip pain Low back [...] Resource Strain: High Risk (12/24/2023) [facility] Overall Financial Resource Strain (CARDIA) Difficulty of Paying Living Expenses: Very hard Food Insecurity: No Food Insecurity (12/29/2023) Hunger Screening Food Insecurity - Worry: Never True Food Insecurity - Inability: Never True Recent Concern: Food Insecurity - Food Insecurity Present (12/24/2023) [facility] Hunger Vital Sign Worried About Running Out of Food in the Last Year: Sometimes true Ran Out of Food in the Last Year: Patient declined Transportation Needs: Patient Declined (12/24/2023) [facility] PRAPARE - Transportation Lack of Transportation (Medical): Patient declined Lack of Transportation (Non-Medical): Patient declined Physical Activity: Inactive (12/24/2023) Re[facility] Exercise Vital Sign Days of Exercise per Week: 0 days Minutes of Exercise per Session: 0 min Stress: Stress Concern Present (12/24/2023) [facility] [place] [employer] - Occupational Stress Questionnaire Feeling of Stress : Very much Social Connections: Unknown (12/24/2023) Re[facility] Social Connection and Isolation Panel [NHANES] Frequency of Communication with Friends and Family: Twice a week Frequency of Social Gatherings with Friends and Family: Twice a week Attends Hinduism Services: Not on file Active Member of Clubs or Organizations: Patient declined Attends Club or Organization Meetings: Patient declined Marital Status: Interpersonal Safety: Unknown (12/29/2023) Received from [facility] Safety & Environment Fear of Current or Ex-Partner: Not on file Emotionally Abused: Not on file Physically Abused: Not on file Sexually Abused: Not on file Physically or Sexually Abused: Not on file Housing Instability: High Risk (12/24/2023) [facility] Housing Stability Vital Sign Unable to Pay [...] during discussion, demonstrated appropriate cognitive reasoning and understandingof the medical condition by asking appropriate questions [...] spine and paraspinal musculature. Pain is elicited withflexion, extension, and lateral rotation of the lumbar [...] monitoring for toxicity We do not currently prescribeany controlled substance from this practice. Treatment plans [...] personally performed the services described in the documentation,as scribed by Hedy Rivera CNA in my presence, and it is both accurate and complete. Hedy Rivera CNA 03/01/24 1419 NISHANT Rodriguez 03/01/24 1551 [facility]24 NoteHNO ID: [id number] Author: LAKSHMI SOLITARIO MD Service: ? Author [...] BICEPS TRICEPS DELTS Wrist Ext Wrist Flex Computer Numerical Control Machinist HI R 5 5 5 5 5 [...] extremities in spn, dpn, (more content not included)...[facility] CenterJsuixgps67-16-2878 History of Present illness Narrative* Lakshmi Solitario MD - 02/01/2024 4:14 PM EDT Images from the original note were not [...] experienced acute radicular pain. He was being followedby spine medicine and he was noted to [...] tablet by mouth two times a day. Patientshould start on February 06, 2024. fluticasone-salmeterol (ADVAIR [...] BICEPS TRICEPS DELTS Wrist Ext Wrist Flex Computer Numerical Control Machinist HI R 5 5 5 5 5 [...] son regarding his clinical presentation. We discussed Martínez unable to provide any neck steps while the patient is on Eliquis given his recent DVT. We did discuss exhausting nonoperative treatment prior to any surgical intervention as such once he is able Tash will send him for left-sided L4-5 epidural [...] TIME: 4:14 PM PAGER: [facility] Miscellaneous Notes* Telephone Encounter - Rakel Lerner - 01/19/2024 2:29 PM EDT Received faxed referral for patient to be seen for Lumbar. Called and spoke to patient who stated has an appointment already set up with [facility]. Scanned referral documented in this encounterT[facility]05-07-2024 Telephone encounter Note* Telephone Encounter - Rakel Lerner - 01/19/2024 2:29 PM EDT Received faxed referral for patient to be seen for Lumbar. Called and spoke to patient who stated has an appointment already set up with [facility]. Scanned referral [facility]04-29-2024 Miscellaneous Notes* Telephone Encounter - Lauryn Ratliff CNA - 01/11/2024 9:45 AM EDT Patient called to cancel his procedure for Sunday 01/14. He reports that he has a blood clot and has an appointment with his primary care today. He was informed to let Pain know what specialist he is referred to so that clearance can be obtained before rescheduling. * Telephone Encounter - NISHANT Rodriguez - 01/11/2024 9:45 AM EDT Review of documentation reveals patient has been started on Eliquis due to dvt. Patient does not need to hold Eliquis for nerve root injection. Ok to proceed if patient willing and agreeable. Please let me know if any further questions or concerns. Thanks! [facility] [employer] Rqgdrw57-57-1412 Telephone encounter Note* Telephone Encounter - Lauryn Ratliff CNA - 01/11/2024 9:45 AM EDT Patient called to cancel his procedure for Sunday 01/14. He reports that he has a blood clot and has an appointment with his primary care today. He was informed to let Pain know what specialist he is referred to so that clearance can be obtained before rescheduling. [facility] TourPalYydtka61-97-6726 Telephone encounter Note* Telephone Encounter - NISHANT Rodriguez - 01/11/2024 9:45 AM EDT Review of documentation reveals patient has been started on Eliquis due to dvt. Patient does not need to hold Eliquis for nerve root injection. Ok to proceed if patient willing and agreeable. Please let me know if any further questions or concerns. Thanks! [facility]04-25-[facility] Telephone encounter Note* Telephone Encounter - Prince Llamas RPh - 01/07/2024 4:32 PM EDT Received call from patient stating apixaban was not covered through patient's insurance. Called andspoke with pharmacist at [id number] [place] [address] - [address] [address] [place] [address]. [facility] pharmacist stated apixaban starter pack was not in stock and thus they were unable to bill insurance until medication is in stock. However, [facility] pharmacist was able to fill as tablets since the starter pack was not in stock. This [facility] provided $30-day free trial card over the phone, confirmed with [facility] pharmacist that this patientwill have $0 copay for initial supply. This [facility] provided $10 copay card over the phone and the [facility] pharmacist entered this under patient's profile for future monthly dispenses so that may copayper month will be $10. This [facility] called and updated patient with $0 initial supply and $10 monthly copay after that. Patient verbalized understanding. Thank you for allowing me to participate in this patient's care. Prince Llamas RPh [facility]04-25-2024 Miscellaneous Notes* Telephone Encounter - Prince Llamas RPh - 01/07/2024 4:32 PM EDT Received call from patient stating apixaban was not covered through patient's insurance. Called andspoke with pharmacist at [id number] [place] [address] - [address] [phone] [place] [address]. [facility] pharmacist stated apixaban starter pack was not in stock and thus they were unable to bill insurance until medication is in stock. However, [facility] pharmacist was able to fill as tablets since the starter pack was not in stock. This [facility] provided $30-day free trial card over the phone, confirmed with [facility] pharmacist that this patientwill have $0 copay for initial supply. This [facility] provided $10 copay card over the phone [facility] this under patient's profile for future monthly dispenses so that may copayper month will be $10. This [facility] called and updated patient with $0 initial supply and $10 monthly copay after that. Patient verbalized understanding. Thank you for allowing me to participate in this patient's care. Prince Llamas RPh documented in this [facility] Telephone encounter Note * Telephone Encounter - Desirae Lo APRN.POSTAL SERVICE SECTIONAL CENTER MANAGER - 01/07/2024 1:54 PM EDT Returned patient's call regarding today's appointment and ED evaluation. He was verified by name and birthday, at time of call patient's Sister Hedy, was present with patient consent. At ED visit this morning he was diagnosed with left lower extremity DVT, and started on Eliquis. Atdischarge he was advised to follow-up with primary care and vascular medicine. He has a follow-up with primary care scheduled for 01/11/2024. He states that he will be attempting to establish with vascular medicine closer to his residence. He did verbalize that if he is unable to establish with vascular medicine close to home, he will be contacting the [facility] for follow-up. At time of call he [...] All questions answered at time of call. [facility]04-25-2024 Miscellaneous Notes* Telephone Encounter - Desirae Lo APRN.CNP - 01/07/2024 1:54 PM EDT Returned patient's call regarding today's appointment and ED evaluation. He was verified by name and birthday, at time of call patient's Sister Hedy, was present with patient consent. At ED visit this morning he was diagnosed with left lower extremity DVT, and started on Eliquis. Atdischarge he was advised to follow-up with primary care and vascular medicine. He has a follow-up with primary care scheduled for 01/11/2024. He states that he will be attempting to establish with vascular medicine closer to his residence. He did verbalize that if he is unable to establish with vascular medicine close to home, he will be contacting the [facility] for follow-up. At time of call he [...] at time of call. documented in this encounterK[facility]04-[facility]-2024 NoteHNO ID: [id number] Author: DESIRAE GUTIERREZ RDMS, CHINMA[place] Service: ? Author Type: Sonoscope Operator Type: Progress Notes Filed: 01/07/2024 11:30 Note [...] PATIENT PRESENTS WITH AN IMPLANTABLE OR ATTACHED ELECTRONIC EQUIPMENT MAINT TECH: No RADIOLOGY DEPARTMENT: Ultrasound PERIPHERAL IV DATA: Not applicable Portable US DVT LOWER LT done SIGNED BY: Desirae Gutierrez RDMS, RVT January 07, 2024 11:29 [facility] CenterCtmmbies46-38-2037 NoteHNO ID: [id number] Author: DESIRAE LO APRN.POSTAL SERVICE SECTIONAL CENTER MANAGER Service: ? Author Type: Nurse Practitioner Type: [...] pain to the left leg. Works at [employer] Nonsmoker ETOH - twisted tea's drinking 3 [...] Oxycodone HCL 12/07/2023 Physical Therapy: T[facility] in [facility] - attended twice - discontinued by PCP due to patient's pain Treating Physicians: Dr. Constantino - PCP Hedy Hughes [facility] - [facility] neurosurgery Julianna Rosario [facility]- [facility] Pain management - left L3,L4 TFESI ordered - scheduled for 01/15/2024 Dr. Collado - Pain management - [facility] health care Dr. Sen - [facility] Health Care History of Spine Injections/Surgery: None Other Issues Addressed at the Visit Today: None. Precipitating Event: None PAIN EVALUATION 12/31/2023 1209 01/07/2024 0752 Pain Level: 9 8 Pain Location: Back-Lower Back-Lower radiates to L leg Description: Numbness;Pressure;Pulsating;Shooting;Stabbing/Not Incision;Tightness Sharp;Throbbing;Pressure;Burning Duration Amount of Time: 24 1 Duration Units: Months Months Frequency: Continuous Continuous Intervention/Comfort measure: Medication;Reposition;Relaxation;Cold;Heat;Massage;Pillow support;Positioning -- Comments: Controlling pain with gabapentin [...] Moderately severe depression 20-2 (more content not included)...[facility]04-25-2024 History of Present illness Narrative* Desirae Lo APRN.POSTAL SERVICE SECTIONAL CENTER MANAGER - 01/07/2024 8:00 AM EDT Images from the original note were not [...] L3, L4 TFESI with pain management on 024. At time of today's appointment he also [...] pain to the left leg. Works at [employer] Nonsmoker ETOH - twisted tea's drinking 3 times was a week , Pain localized to Left low back Pain described as sharp, stabbing, throbbing Radiation: Left low back pain to great toe Numbness/Tingling:Left low back pain to great toe Leg worse than back He denies loss of bowel or bladder control, denies dexterity difficulties, reports imbalance due toleg pain. Pain rated 8/10 Pain worse with anything and everything Pain improved with sitting in recliner chair Interventions: medications , heat, ice , chiropractor x 8 weeks Medications: gabapentin 12/24/2023, norco 12/17/2023 , percocet , etodolac, Advair, robaxin, ambein, Past medications: Oxycodone HCL 12/07/2023 Physical Therapy: TAMARA in [facility] - attended twice - discontinued by PCP due to patient's pain Treating Physicians: Dr. Constantino - PCP Hedy Hughes [facility] - [facility] neurosurgery Julianna Rosario [facility]- [facility] Pain management - left L3,L4 TFESI ordered - scheduled for 01/15/2024 Dr. Collado - Pain management - [facility] health care Dr. Sen - [facility] Health Care History of Spine Injections/Surgery: None Other Issues Addressed at the Visit Today: None. Precipitating Event: None PAIN EVALUATION 12/31/2023 1209 01/07/2024 0752 Pain Level: 9 8 Pain Location: Back-Lower Back-Lower radiates to L leg Description: Numbness;Pressure;Pulsating;Shooting;Stabbing/Not Incision;Tightness Sharp;Throbbing;Pressure;Burning Duration Amount of Time: 24 1 Duration Units: Months Months Frequency: Continuous Continuous Intervention/Comfort measure: Medication;Reposition;Relaxation;Cold;Heat;Massage;Pillow support;Positioning -- Comments: Controlling pain with gabapentin [...] was unable to palpate them. I was ableto locate left posttibial pulse with Doppler. I was unable to locate left peroneal, dorsalis pedis,and anterior tibial pulses with the Doppler. Logroll: [...] disc desiccation. Posterior broad-based disc protrusion. Focal leftforaminal disc herniation of the extrusion type measuring [...] reviewed with patient. He he is currently scheduledto undergo interventional procedure with pain management 01/15/2024. I reviewed this procedure and his current occasions. Upon completion of review patient request surgical consultation, consultationorder was placed. Patient was advised to have ED evaluation in regards to left lower extremity examination findings, see above, as there is concern for possible DVT. He was agreeable. Prior to patient discharge I contacted [place] [facility] at 08:35 a.m. Report was given [...] 2024 TIME: 7:49 AM [facility] Telephone encounter Note * Telephone Encounter - Desirae Lo APRN.CNP - 01/04/2024 4:10 PM EDT Attempted to contact patient in regards to upcoming appointment on 01/07/2024. No imaging is available in patient's chart, attempted to leave voicemail requesting patient to bring imaging to his appointment, this attempt was unsuccessful, as patient's voicemail box is full. [facility]04-22-2024 Miscellaneous Notes* Telephone Encounter - Desirae Lo APRN.CNP - 01/04/2024 4:10 PM EDT Attempted to contact patient in regards to upcoming appointment on 01/07/2024. No imaging is available in patient's chart, attempted to leave voicemail requesting patient to bring imaging to his appointment, this attempt was unsuccessful, as patient's voicemail box is full. documented in this [facility]-16-[facility] History of Present illness Narrative* NISHANT Rodriguez - 12/29/2023 8:30 AM EDT [facility] [address] [place] [address] Patient: Ronny Reeves Sex: male : 1970 [...] Pain HPI: Physical therapy started 12/25/2023 at [facility] in [place] has completed two visits which increases pain [...] work, he was taken off of work sothat he can recover and today he is [...] and then along with anxiety. His symptoms aregradually improving and he would prefer to avoid medications at this time. Asthma 12/29/2023 BPH with urinary obstruction 12/29/2023 Essential hypertension 08/24/2012 Last Assessment & Plan: Well controlled on Amlodipine but elevated today. This could be due to pain also as he seems reallyuncomfortable and in pain Monitor for now. No [...] He is also going through a difficult timein Joint pain Left hip pain Low back [...] Resource Strain: High Risk (12/24/2023) Received from [facility] Overall Financial Resource Strain (CARDIA) Difficulty of Paying Living Expenses: Very hard Food Insecurity: No Food Insecurity (12/29/2023) Hunger Screening Food Insecurity - Worry: Never True Food Insecurity - Inability: Never True Recent Concern: Food Insecurity - Food Insecurity Present (12/24/2023) Received from [facility] Hunger Vital Sign Worried About Running Out of Food in the Last Year: Sometimes true Ran Out of Food in the Last Year: Patient declined Transportation Needs: Patient Declined (12/24/2023) Received from [facility] PRAPARE - Transportation Lack of Transportation (Medical): Patient declined Lack of Transportation (Non-Medical): Patient declined Physical Activity: Inactive (12/24/2023) Received from [facility] Exercise Vital Sign Days of Exercise per Week: 0 days Minutes of Exercise per Session: 0 min Stress: Stress Concern Present (12/24/2023) Received from [facility] [place] [employer] - Occupational Stress Questionnaire Feeling of Stress : Very much Social Connections: Unknown (12/24/2023) Received from [facility] Social Connection and Isolation Panel [NHANES] Frequency of Communication with Friends and Family: Twice a week Frequency of Social Gatherings with Friends and Family: Twice a week Attends Hinduism Services: Not on file Active Member of Clubs or Organizations: Patient declined Attends Club or Organization Meetings: Patient declined Marital Status: Interpersonal Safety: Not on file Housing Instability: High Risk (12/24/2023) Received from [facility] Housing Stability Vital Sign Unable to Pay for Housing in the Last Year: Yes Number of Places Lived in the Last Year: 1 In the last 12 months, was there a time when you did not have a steady place to sleep or slept in ashelter (including now)?: No Review of Systems Constitutional: [...] during discussion, demonstrated appropriate cognitive reasoning and understandingof the medical condition by asking appropriate questions [...] spine and paraspinal musculature. Pain is elicited withflexion, extension, and lateral rotation of the lumbar [...] procedure was described in detail to the patientas well as the potential benefits of pain [...] monitoring for toxicity We do not currently prescribeany controlled substance from this practice. The spine model was demonstrated and Xray and MRI was reviewed and used to explain the condition. OARRS: Reviewed. Scribe Statement: Scribed for and in the presence of NISHANT RODRIGUEZ by Hedy Rivera CNA. Provider Statement: I, NISHANT RODRIGUEZ, personally performed the services described in the documentation,as scribed by Hedy Rivera CNA in my presence, and it is both accurate and complete. Hedy Rivera CNA 12/29/23 0943 NISHANT Rodriguez 12/29/23 1349 documented in this encounterSt. [facility]University [facility] [id number] Instructions* Patient Instructions* Hedy Rivera CNA - 12/29/2023 8:30 AM EDT Epidural Steroid Injection (NAMAN) / Nerve Root Injection / Nerve Block These procedure(s) involve the injection of a steroid and anesthetic into the epidural space or thenerve sheath that is both diagnostic and potentially therapeutic for alleviating discomfort of the legs and arms secondary to compression of the respective nerves due to bulging discs, bone spurs andother potential causes. Steroids are potent anti-inflammatory drugs [...] a safety precaution, you must have a truck driver teamster after a lumbar nerve root injection, even [...] take you to the nearest emergency room. Tellthe emergency room staff that you recently had [...] it back to normal. [facility] Miscellaneous Notes* Telephone Encounter - Cynthia Miller RN - 12/18/2023 2:33 PM EDT Mr. Reeves calls today wanting to make an appointment for pain management. He is awaiting gettingapproval for a lumbar MRI. He is going to call his PCP's office on Thursday and ask if they can order PT and send a referral to us. Explained to patient that having the MRI results will allow us to have a treatment plan based on the results. documented in this encounterMetroHealth Main Campus Medical CenterLuxTicket.sg [facility] [id number] Telephone encounter Note* Telephone Encounter - Cynthia Miller RN - 12/18/2023 2:33 PM EDT Mr. Reeves calls today wanting to make an appointment for pain management. He is awaiting gettingapproval for a lumbar MRI. He is going to call his PCP's office on Thursday and ask if they can order PT and send a referral to us. Explained to patient that having the MRI results will allow us to have a treatment plan based on the results. [facility]02-07-[facility] Telephone encounter Note* Telephone Encounter - Shaikh Mckinley MD - 10/21/2023 2:22 PM EST Prescription called in for the patient. [facility] [id number] Miscellaneous Notes* Telephone Encounter - Shaikh Mckinley MD - 10/21/2023 2:22 PM EST Prescription called in for the patient. documented in this encounterCenterPointe [id number] NoteOP Note OPERATION DATE: 11/20/2022 PREOPERATIVE DIAGNOSIS: Retained right ureteral calculus. POSTOPERATIVE DIAGNOSIS: Retained right ureteral calculus, plus right ureteral stricture. PROCEDURE: 1. Cystoscopy. 2. Right rigid ureteral dilation. 3. Right ureteroscopy. 4. Holmium laser lithotripsy of very dense ureteral calculus 5. Stone basket extraction of ureteral calculus. 6. Placement of 6-Norwegian variable length right ureteral stent. ANESTHESIA: General [...] usual fashion. I started by passing a 22-Norwegian Olympus cystoscope per urethra and into the [...] kidney. I then used an 8 and 10-Norwegian rigid dilator to dilate the distal ureter. [...] into the bladder. I then slid a 6-Norwegian variable length Bard terminal makeup operator ureteral stent over the wire, up into the kidney. The wire was removed and there were good curls in the kidney and in the bladder. The bladder was drained of its contents and the scope was then removed. He was then transferred to a gurnanuet bed and wheeled to PACU in stable condition.[facility] [id number] Hospital Discharge instructions Patient Education 11/19/2022 14:11:01 Dietary Guidelines [...] about 300 mg of calcium at each meal.Foods that contain 200 500 mg of calcium [...] Talk to your dietitian about how much calciumis recommended for you. Shopping Buy plenty of [...] the table and allow each person to addhis or her own salt to taste. Use [...] fish, if told by your dietitian. To dothis: ?Limit the number of times you have [...] include: ?Spinach. ?Rhubarb. ?Beets. ?Potato chips and burundian fries. ?Nuts. If you regularly take a diuretic medicine, make sure to eat at least 1 2 fruits or vegetables high in potassium each day. These include: ?Avocado. ?Banana. ?Steele, prune, carrot, or tomato juice. ?Baked potato. [...] fish. Salted or cured meats. Deli meats. Hotdogs. Sausages. Dairy Cheese. Beverages Regular soft drinks. Regular vegetable juice. Seasonings and other foods Seasoning blends with salt. Salad dressings. Canned soups. Soy sauce. Ketchup. Barbecue sauce. Canned pasta sauce. Casseroles. Pizza. Lasagna. Frozen meals. Potato chips. Norwegian fries. Summary You can reduce your risk of kidney stones by making changes to your diet. The most important thing you can do is drink enough fluid. You should drink enough fluid to keep your urine clear or pale yellow. Ask your health care provider or dietitian how much protein from animal sources you should eat eachday, and also how much salt and calcium you should have each day. This information is not intended to replace advice given to you by your health care provider. Make sure you discuss any questions you have with your health care provider. Document Released: 12/26/2011 Document Revised: 12/21/2019 Document Reviewed: 08/11/2017 [employer] Patient Education 2020 [employer]. Follow Up Care 11/18/2022 14:59:23 With:Carleen CAPONE MD, URL Address: [facility] [address], [place] [address]- When: Unknown [facility] Evaluation + Plan note No data available for this section [facility] Evaluation + Plan note Future Appointments Appointment Date:12/09/2022 03:45:00 PM Scheduled Provider:[facility]O Procedure 15 min [facility] Evaluation + Plan note Future Appointments Appointment Date:12/09/2022 03:45:00 PM Scheduled Provider:Carleen CAPONE MD Location:[facility] Appointment Type:URO Procedure 15 min Diagnostic Tests Pending * Urine Culture [facility] Erectile dysfunction, unspecified erectile dysfunction type- Primary [facility] in [facility] encounter [facility]Evaluation [facility]* Diagnosis Lumbar disc herniation with radiculopathy- Primary Displacement of lumbar intervertebral disc without myelopathy Degeneration of lumbar intervertebral disc Degeneration of lumbar or lumbosacral intervertebral disc Left leg swelling Swelling of limb documented [facility]* Diagnosis Lumbar disc herniation with radiculopathy Displacement of lumbar intervertebral disc without myelopathy Degeneration of lumbar intervertebral disc Degeneration of lumbar or lumbosacral intervertebral disc documented in this encounter [facility]Evaluation noteNo assessment information availableMarymount Hospital Work Phone: Evaluation note* Diagnosis Onset Date Resolution Status Deep venous thrombosis of left popliteal vein acute [facility] Work Phone: Evaluation note* Diagnosis Essential hypertension (CMS/HCC)- Primary Unspecified essential hypertension Insomnia, unspecified type documented [facility] encounter [facility]* Diagnosis Change in consistency of stool- Primary Family history of pancreatic cancer Family history of malignant neoplasm of gastrointestinal tract Essential hypertension (CMS/HCC) Unspecified essential hypertension documented in this encounter [facility] HealthcareEvaluation note* Diagnosis Psychophysiological insomnia- Primary Persistent [...] in stool contents documented [facility] this encounter [facility]* Diagnosis Lumbar disc disease with [...] or maintaining sleep documented in this encounter [facility] HealthcareEvaluation note* Diagnosis Onset Date Resolution Status Admit Date Deep venous thrombosis of le ft popliteal vein acute December 13, 2024 2:46pm Degenerative disc disease acute December 13, 2024 2:46pm Encounter for screening for malignant neoplasm of prostate acute A pril 2024 2:46pm Essential (primary) hypertension acu te December 13, 2024 2:46pm Insomnia, unspecified acute Apr il 2024 2:46pm [facility] Work Phone: Evaluation note* Diagnosis Psychophysiological [...] nonorganic origin documented in this encounter [facility] HealthcareHistory and physical note Author Sury Champion [facility] Note Date/Time February 21, 2025 10:3 5am [facility] [address] [place] [address] Gastroenterology H&P Signed Patient: Ronny Reeves MR#: [id number] : 1970 Acct:[id number] Age/Sex: 54 / M Adm Date: 5 Loc: Room: Type: [facility] Attending Dr: Sury Champion DO Copies to: DO Sulma Sepulveda APRN, MLEISA~ Date of Service: 02/21/2025 HISTORY & PHYSICAL: Patient's history with special attention to the cardiovascular, pulmonary systems and the current problem was reviewed with the patient immediately prior to the procedure. Present medications and doses reviewed in the EMR. Allergies and pertinent laboratory tests were also reviewedat this time in the EMR. The physical examination, as below, was then performed. Indication, assessment and HPI: 54-year-old male who presents for EGD for intermittent melena. Family history of GI malignancy? Father with pancreatic cancer PHYSICAL EXAMINATION General appearance: cooperative, NAD Skin: No jaundice, no rash or lesions Head: NCAT Eyes: Anicteric Neck: Supple Lungs: Normal respiratory effort, no use of accessory muscles Abdomen: Soft, nondistended Neuro: No focal deficits, Ox3. REVIEW OF SYSTEMS Constitutional: Denies malaise, fevers Cardiovascular: Denies chest pain, palpitations Respiratory: Denies shortness of breath, wheezing Gastrointestinal: As per HPI Genitourinary: Denies dysuria, polyuria Musculoskeletal: Denies joint swelling, joint stiffness Neurological: Denies confusion, numbness, tingling Endocrine: Denies fatigue Written informed consent obtained from the patient. Risks (including but not limited to perforation, infection, bloating, bleeding, need for emergent surgeryand loss of life), benefits and alternatives explained and questions answered. The patient verbalized understanding. Based on history patient is an appropriate candidate for the procedure. Sury Champion DO Present medication and doses reviewed in the EMR Documented By: Sury Champion DO 02/21/25 0956 Signed By: <Electronically signed by Sury Champion DO> 02/21/25 [facility] Work Phone: Hospital Discharge instructions No data available for this section [facility] InstructionsNot on filedocumented in this encounter [facility]InstructionsNot on filedocumented in this encounter [facility] SystemInstructionsNot on filedocumented in this encounter [facility] SystemInstructionsNot on filedocumented in this encounter [facility] System[facility] note No data available for this section [facility] Reason for referral (narrative)* Consultation (Routine) - Pending Review Specialty Diagnoses / Procedures Referred By Roxie malik Referred To Contact Neurology Diagnoses Insomnia, unspecified type Procedures UT OFFICE/OUTPATIENT NEW HIGH MDM 60 MINUTES Jayson Carcamo NP [address] [place] [phone] Radha Fofana DO [address] [place] [address] Referral ID Status Reason Start Date Expiration Date Visits Requested Visits Authorized [id number] Pending Review Specialty Services Required 05/12/2024 11/08/2024 1 1 [facility] Summary Purpose Family History No Family History Records Found Relationship Condition Age at Onset Recorded Date/T izabel father Malignant neoplasm of pancreas Unknown Advance Directives No Advanced Directives Records Found Advance Directive Response Recorded Date/ Time Advance Directives No January 19, 2024 11:14am Reason for Referral Specialty Diagnoses / Procedures Referred By Roxie malik Referred To Contact Diagnoses Lumbar disc disease with radiculopathy Procedures Case request operating room: INJECTION SPINE TRANSFORAMINAL LEFT L3, L4 NERVE ROOT Julianna Rosario, PIPE STEM REPAIRER-POSTAL SERVICE SECTIONAL CENTER MANAGER [address] [address] Referral ID Status Reason Start Date Expiration Date V isits Requested Visits Authorized [id number] Pending Review 12/29/2023 12/28/2024 1 1 Specialty Diagnoses / Procedures Referred By Roxie malik Referred To Contact Diagnoses Lumbar disc herniation with radiculopathy Degeneration of lumbar intervertebral disc Procedures CONSULT TO SPINE SURGERY OFFICE/OUTPATIENT [facility] 60 MINUTES Desirae Lo APRN.POSTAL SERVICE SECTIONAL CENTER MANAGER [address] [place] [address] Referral ID Status Reason Start Date Expiration Date Visits Requested Visits Authorized [id number] Authorized PCP Requested Referral 01/07/2024 01/06/2025 1 [...] Insomnia, unspecified December 13, 2024 2: 46pm Chief Complaint Admit Date Establish, pain in lower R Abd December 2:46pm occilt blood in stool/Refer: Richard waller NP January 27, 2025 9:28am F10.10 R10.9 February 13, 2025 2:38p m Reason for Visit Admit Date Abdominal pain December 13, 2024 2:46 pm Alcohol abuse December 13, 2024 2:46 pm Deep venous thrombosis of left popliteal vein December 13, 2024 2:46pm Degenerative disc disease December 13 2:46pm Encounter for screening for malignant ne oplasm of prostate December 13, 2024 2:46pm Essential (primary) hypertension December 132024 2:46pm Insomnia, unspecified December 13, 2024 2: 46pm Alcohol abuse January 27, 2025 9:28a m Complaint of melena January 27, 2025 9:28a m Chief Complaint Admit Date Establish, pain in lower R Abd December 2:46pm occilt blood in stool/Refer: Richard waller,TITLE CLERK AUTOMOBILE January 27, 2025 9:28am F10.10 R10.9 February 13, 2025 2:38p m abd pain February 21, 2025 9:44 am abd pain February 21, 2025 9:56 am Additional Source Comments Patient Care team informatio n (unrecognized section and content) Skid Man Relationship Specialty Start Date End Date Shaikh Sen MD PCP - General Internal Medicine 09/14/22 Skid Man Relationship Specialty Start Date End Date Robert Constantino MD PCP - General Family Medicine 11/02/12 Skid Man Relationship Specialty Start Date End Date Shaikh Sen MD [address] [place] [address] PCP - General Primary Care 01/07/24 Skid Man Relationship Specialty Start Date End Date Shaikh Sen MD [address] [place] [address] PCP - General Primary Care 01/07/24 Skid Man Relationship Specialty Start Date End Date Shaikh Sen MD [address] [place] [address] PCP - General Primary Care 01/07/24 Team [...] April 09, 2024 End: April 09, 2024 Skid Man Relationship Specialty Start Date End Date Carlos Sarabia MD [address] [place] [phone] PCP - General Family Medicine 04/18/24 Jayson Carcamo NP [address] [place] [phone] Nurse Practitioner Family Medicine 04/18/24 Skid Man Relationship Specialty Start Date End Date Carlos Sarabia MD [address] [place] [phone] PCP - General Family Medicine 04/18/24 Jayson Carcamo NP [address] [place] [phone] Nurse Practitioner Family Medicine 04/18/24 Skid Man Relationship Specialty Start Date End Date Carlos Sarabia MD [address] [place] [phone] PCP - General Family Medicine 04/18/24 Jayson Carcamo NP [address] [place] [phone] Nurse Practitioner Family Medicine 04/18/24 Skid Man Relationship Specialty Start Date End Date Carlos Sarabia MD [address] [place] [phone] PCP - General Family Medicine 04/18/24 Jayson Carcamo NP [address] [place] [address] Nurse Practitioner Family Medicine 04/18/24 Skid Man Relationship Specialty Start Date End Date Carlos Sarabia MD [address] [place] [phone] PCP - General Family Medicine 04/18/24 Jayson Carcamo NP [address] [place] [address] Nurse Practitioner Family Medicine 04/18/24 Skid Man Relationship Specialty Start Date End Date Carlos Sarabia MD [address] [place] [phone] PCP - General Family Medicine 04/18/24 Jayson Carcamo NP [address] [place] [address] Nurse Practitioner Family Medicine 04/18/24 Skid Man Relationship Specialty Start Date End Date Carlos Sarabia MD [address] [place] [address] PCP - General Family Medicine 04/18/24 Jayson Carcamo NP [address] [place] [address] Nurse Practitioner Family Medicine 04/18/24 Skid Man Relationship Specialty Start Date End Date Carlos Sarabia MD [address] [place] [address] PCP - General Family Medicine 04/18/24 Jayson Carcamo NP [address] [place] [address] Nurse Practitioner Family Medicine 04/18/24 Skid Man Relationship Specialty Start Date End Date Carlos Sarabia MD [address] [place] [phone] PCP - General Family Medicine 04/18/24 Jayson Carcamo NP [address] [place] [address] Nurse Practitioner Family Medicine 04/18/24 Skid Man Relationship Specialty Start Date End Date Carlos Sarabia MD [address] [place] [phone] PCP - General Family Medicine 04/18/24 Jayson Carcamo NP [address] [place] [address] Nurse Practitioner Family Medicine 04/18/24 Skid Man Relationship Specialty Start Date End Date Shaikh Sen MD [address] [place] [address] PCP - General Internal Medicine 06/30/23 Skid Man Relationship Specialty Start Date End Date Shaikh Sen MD [address] [place] [address] PCP - General Internal Medicine 06/30/23 Skid Man Relationship Specialty Start Date End Date Shaikh Sen MD [address] [place] [address] PCP - General Internal Medicine 06/30/23 Skid Man Relationship Specialty Start Date End Date Shaikh Sen MD [address] [place] [address] PCP - General Internal Medicine 06/30/23 Skid Man Relationship Specialty Start Date End Date Shaikh Sen MD [address] [place] [address] PCP - General Internal Medicine 06/30/23 Skid Man Relationship Specialty Start Date End Date Carlos Sarabia MD [address] [place] [phone] PCP - General Family Medicine 04/18/24 Jayson Carcamo, VIKAS [address] [place] [phone] Nurse Practitioner Family Medicine 04/18/24 Radha Fofana DO [address] [place] [address] Referring Physician Neurology 11/15/24 Skid Man Relationship Specialty Start Date End Date Carlos Sarabia MD [address] [place] [phone] PCP - General Family Medicine 04/18/24 Jayson Carcamo NP [address] [place] [phone] Nurse Practitioner Family Medicine 04/18/24 Radha Fofana DO [address] [place] [address] Referring Physician Neurology 11/15/24 Skid Man Relationship Specialty Start Date End Date Carlos Sarabia MD [address] [place] [phone] PCP - General Family Medicine 04/18/24 Jayson Carcamo NP [address] [place] [address] Nurse Practitioner Family Medicine 04/18/24 Radha Fofana DO [address] [place] [address] Referring Physician Neurology 11/15/24 Team Status: Active Member Role Status Dates Jayson Carcamo TITLE CLERK [employer] Primary Care Provider Ac tive Team Status: Inactive Member Role Status Dates Jayson Carcamo TITLE CLERK [employer] Primary Care Provider Ac tive Start: December 13, 2024 End: December 13, 2024 Sulma Marcelo APRN TITLE CLERK [employer] Attending Provider Act olegario Start: December 13, 2024 End: December 13, 2024 Skid Man Relationship Specialty Start Date End Date Carlos Sarabia MD [address] [place] [phone] PCP - General Family Medicine 04/18/24 Jayson Carcamo NP [address] [place] [phone] Nurse Practitioner Family Medicine 04/18/24 Radha Fofana DO [address] [place] [address] Referring Physician Neurology 11/15/24 Skid Man Relationship Specialty Start Date End Date Carlos Sarabia MD [address] [place] [phone] PCP - General Family Medicine 04/18/24 Jayson Carcamo NP [address] [place] [phone] Nurse Practitioner Family Medicine 04/18/24 Radha Fofana DO [address] [place] [address] Referring Physician Neurology 11/15/24 Team Status: Active Member Role Status Dates Sulma Marcelo APRN TITLE CLERK [employer] Primary Care Provider Active Team Status: Active Member Role Status Dates Sulma Marcelo APRN TITLE CLERK [employer] Primary Care Provider, Attending Provider Active Start: January 05, 2025 Team Status: Inactive Member Role Status Dates Sury Champion DO Attending Provider Active St art: January 27, 2025 End: January 27, 2025 Sulma Marcelo APRN TITLE CLERK [employer] Primary Care Provider Active Start: January 27, 2025 End: January 27, 2025 Team Status: Active Member Role Status Dates Sulma Marcelo APRN TITLE CLERK [employer] Primary Care Provider Active Start: February 10, 2025 Sury Champion , DO Attending Provider Active St art: February 10, 2025 Team Status: Inactive Member Role Status Dates Sulma Marcelo APRN TITLE CLERK [employer] Primary Care Provider Active Start: February 13, 2025 End: February 13, 2025 Sury Briggs Ly , DO Attending Provider Active St art: February 13, 2025 End: February 13, 2025 Team Status: Inactive Member Role Status Dates Sulma Marcelo APRN TITLE CLERK [employer] Primary Care Provider Active Start: February 21, 2025 End: February 21, 2025 Sury Champion DO Attending Provider Active St art: February 21, 2025 End: February 21, 2025 Team Status: Active Member Role Status Dates Sulma Marcelo APRN TITLE CLERK [employer] Primary Care Provider Active Start: February 21, 2025 Sury Champion DO Attending Provider, Other Provider Active Start: February 21, 2025 (unrecognized sect ion and content) No Status Records FoundNo Status Records FoundNo Status Records FoundNo Status Records FoundNo Status Records FoundNo Status Records FoundNo Status Records FoundNo Status Records FoundNo Status Records Found INFORMATION SOURCE (unrecogn ized section and content) DATE CREATED AUTHOR 11/26/2022 [facility] DATE CREATED AUTHOR AUTHOR'S ORGANIZ ATION 12/25/2022 [facility] DATE CREATED AUTHOR AUTHOR'S ORGANIZ ATION 01/08/2024 [facility] DATE CREATED AUTHOR AUTHOR'S ORGANIZ ATION 01/08/2024 [facility] DATE CREATED AUTHOR AUTHOR'S ORGANIZ ATION 01/15/2024 [facility] DATE CREATED AUTHOR AUTHOR'S ORGANIZ ATION 02/03/2024 [facility] DATE CREATED AUTHOR AUTHOR'S ORGANIZ ATION 03/03/2024 [facility] DATE CREATED AUTHOR AUTHOR'S ORGANIZ ATION 01/06/2025 [facility] DATE CREATED AUTHOR AUTHOR'S ORGANIZ ATION 03/10/2025 [facility] Reason for Visit (unrecogniz ed section and content) Reason Onset Date Comments Med Refill 10/21/2023 [facility]AGRA REFILL Reason Comments Plug Wirer - Other Reason Comments New Patient Low Back pain Reason Comments Medication Problem Reason Comments New Patient Lumbar disc herniati on w/ radiculopathy, degeneration of lumbar intervertebral disc Specialty Diagnoses / Procedures Referred By Contcourtney t Referred To Contact Diagnoses Lumbar disc herniation with radiculopathy Degeneration of lumbar intervertebral disc Procedures CONSULT TO SPINE SURGERY OFFICE/OUTPATIENT NEW HIGH MDM 60 MINUTES Desirae Lo APRN.[employer] MANAGER [address] [id number] Referral ID Status Reason Start Date Expiration Date V isits Requested Visits Authorized [id number] Closed PCP Requested Referral 01/07/2024 01/06/2025 1 1 Reason Comments Follow-up Reason Onset Date Comments Stool Color Change 05/30/2024 Pt called req uesting a blood test for Liver. He said he has had yellow foamy stool, metal taste in mouth, anxiety, nausea and indigestion. He is concerned because his father had Pancreatic Cancer. So he is asking for testing. Fabric Inspector recommended he schedule an appt but he [...] or prosecute any alcohol or drug abuse patient.[facility] the event this information is protected by the Federal Confidentiality of Alcohol and Drug Abuse Patient Records regulations: The Federal rules restrict any use of the information to criminally investigate or prosecute any alcohol or drug abuse patient.[facility]bleIn the event this information is protected by the Federal Confidentiality of Alcohol and Drug Abuse Patient Records regulations: The Federal rules restrict any use of the information to criminally investigate or prosecute any alcohol or drug abuse patient.[facility]ble[facility] the event this information is protected by the Federal Confidentiality of Alcohol and Drug Abuse Patient Records regulations: The Federal rules restrict any use of the information to criminally investigate or prosecute any alcohol or drug abuse patient.[facility]bleIn the event this information is protected by the Federal Confidentiality of Alcohol and Drug Abuse Patient Records regulations: The Federal rules restrict any use of the information to criminally investigate or prosecute any alcohol or drug abuse patient.[facility] Goals (unrecognized section and content) Goals may [...] BE BASED ON THE PRIMARY CLINICAL RECORDS. [facility]. provides no warranty or guarantee of the accuracy or completeness of information in this document.
--- NOTE | 2025-03-24 17:44 | ED.EXTPRO1 ---
HPI - Extremity Problem General Chief complaint: Extremity Problem, Nontraumatic Stated complaint: PAIN IN R CALF Time Seen by Provider: 03/24/25 16:13 Source: patient Mode of arrival: walk-in History of Present Illness HPI Narrative: The patient is coming to the ER with a right leg pain that developed over the last few days. He denies any fall trauma or any long trip The patient mentioned that he had a history of a DVT before in the same leg and apparently he stopped taking his medication after taking the anticoagulation for 6 months And according to him he had a DVT that was provoked and he did not refill the medication himself Related Data Home Medications ?Medication ?Instructions ?Recorded ?Confirmed albuterol sulfate 90 mcg/actuation 1 inh inhalation Q4H PRN SOB 06/24/23 12/17/23 aerosol inhaler amlodipine 10 mg tablet 10 mg PO DAILY 06/24/23 03/24/25 diphenhydramine HCl 25 mg capsule 12.5 mg PO QPM PRN insomnia 06/24/23 03/24/25 (Benadryl) fluticasone furoate 100 1 inh inhalation DAILY 06/24/23 03/24/25 mcg-vilanterol 25 mcg/dose inhalation powder (Breo Ellipta) sildenafil 100 mg tablet (Viagra) 100 mg PO DAILY PRN erectile 06/24/23 03/24/25 dysfunction tizanidine 4 mg capsule 4 mg PO Q8H 06/24/23 03/24/25 zolpidem 10 mg tablet 10 mg PO .HS PRN insomnia 06/24/23 03/24/25 methocarbamol 750 mg tablet 750 mg PO Q8H 12/16/23 03/24/25 oxycodone 5 mg tablet 5 mg PO Q6H PRN pain 12/16/23 03/24/25 zolpidem 12.5 mg tablet,extended 12.5 mg PO .QHS 12/16/23 03/24/25 release,multiphase hydrocodone 5 mg-acetaminophen 325 1 tab PO Q6H 12/17/23 03/24/25 mg tablet Previous Rx's ?Medication ?Instructions ?Recorded etodolac 300 mg capsule 300 mg PO Q8H PRN pain #20 caps 12/16/23 Allergies Allergy/AdvReac Type Severity Reaction Status Date / Time No Known Drug Allergies Allergy Verified 12/17/23 10:35 Review of Systems ROS Status of ROS 10 or more systems reviewed and unremarkable except as noted in history and below [facility] Medical History (Updated 03/24/25 @ 17:45 by Lisandra Bansal MD) Hemorrhoids ?K64.9 - Unspecified hemorrhoids (ICD-10) Loose bowel movements ?R19.5 - Other fecal abnormalities (ICD-10) Kidney stones ?N20.0 - Calculus of kidney (ICD-10) Nasal fracture ?S02.2XXA - Fracture of nasal bones, initial encounter for closed fracture (ICD-10) Depressive disorder ?F32.A - Depression, unspecified (ICD-10) Situational anxiety ?F41.8 - Other specified anxiety disorders (ICD-10) Insomnia ?G47.00 - Insomnia, unspecified (ICD-10) Circadian rhythm sleep disorder ?G47.20 - Circadian rhythm sleep disorder, unspecified type (ICD-10) Otitis media ?H66.90 - Otitis media, unspecified, unspecified ear (ICD-10) Asthma ?J45.909 - Unspecified asthma, uncomplicated (ICD-10) Irritable bowel syndrome ?K58.9 - Irritable bowel syndrome without diarrhea (ICD-10) Constipation ?K59.00 - Constipation, unspecified (ICD-10) Dermatitis ?L30.9 - Dermatitis, unspecified (ICD-10) Cervicalgia ?M54.2 - Cervicalgia (ICD-10) Low back pain ?M54.50 - Low back pain, unspecified (ICD-10) Erectile dysfunction ?N52.9 - Male erectile dysfunction, unspecified (ICD-10) Hypertension ?I10 - Essential (primary) hypertension (ICD-10) Surgical History (Updated 06/24/23 @ 12:59 by Kathy Santiago RN) H/O colonoscopy ?Z98.890 - Other specified postprocedural states (ICD-10) History of vasectomy ?Z98.52 - Vasectomy status (ICD-10) Family History (Updated 06/24/23 @ 13:00 by Kathy Santiago RN) Other Family history of diabetes mellitus Family history of hypertension Respiratory disorder Social History (Updated 06/24/23 @ 13:01 by Kahty Santiago RN) Within the past year, how often did you have a drink containing alcohol: 2-4 times a month Within the past year, how many standard drinks containing alcohol did you have on a typical day: 1 or 2 Within the past year, how often did you have six or more drinks on one occasion: never Total score: 0 Score interpretation: A score less than 4 is consistent with normal alcohol consumption. 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 General: Well-appearing and in no apparent distress. Skin: Warm, dry, no pallor noted. No rash. Right lower extremity: No significant edema noted but the patient is complaining of tenderness at exactly the right mid leg there is no calf tenderness, there is no Achilles tenderness as well and there is no ecchymosis or any signs of trauma No vascular injury and patient have full range of movement in his ankle and knee Constitutional Vital Signs, click to edit/add: Last Vital Signs Temp 98.2 F 03/24/25 16:14 Pulse 74 03/24/25 16:14 Resp 03/24/25 16:14 BP 150/90 H 03/24/25 16:14 Pulse Ox 100 03/24/25 16:14 O2 Del Method Room Air 03/24/25 16:14 Course Vital Signs Vital signs: Vital Signs Temperature 98.2 F 03/24/25 16:14 Pulse Rate 74 03/24/25 16:14 Respiratory Rate 03/24/25 16:14 Blood Pressure 150/90 H 03/24/25 16:14 Pulse Oximetry 100 03/24/25 16:14 Oxygen Delivery Method Room Air 03/24/25 16:14 Temperature 98.2 F 03/24/25 16:14 Pulse Rate 74 03/24/25 16:14 Respiratory Rate 03/24/25 16:14 Blood Pressure 150/90 H 03/24/25 16:14 Pulse Oximetry 100 03/24/25 16:14 Oxygen Delivery Method Room Air 03/24/25 16:14 MDM - Extremity (Nontraumatic) MDM Narrative Medical decision making narrative: Venous Doppler to the right lower extremity showed no DVT The patient will just follow-up with his primary care doctor as outpatient for further evaluation He had a history of provoked DVT and he was treated with 6 months of anticoagulation right now there is no active DVT finding The patient is to follow up with primary care physician in next 2-3 days or to return to the emergency department should any of the signs or symptoms worsen or new symptoms develop. The patient agrees with the following Diagnosis and Treatment plan and the patient will be discharged home. Discharge Plan Discharge Chief Complaint: Extremity Problem, Nontraumatic Clinical Impression: Leg pain, right Patient Disposition: Home, Self-Care Time of Disposition Decision: 17:44 Condition: Good Prescriptions / Home Meds: No Action methocarbamol 750 mg tablet 750 mg PO Q8H oxycodone 5 mg tablet 5 mg PO Q6H PRN (Reason: pain) zolpidem 12.5 mg tablet,ext release multiphase 12.5 mg PO .QHS etodolac 300 mg capsule 300 mg PO Q8H PRN (Reason: pain) Qty: 20 0RF hydrocodone-acetaminophen 5-325 mg tablet 1 tab PO Q6H albuterol sulfate 90 mcg/actuation HFA aerosol inhaler 1 inh inhalation Q4H PRN (Reason: SOB) diphenhydramine HCl [Benadryl] 25 mg capsule 12.5 mg PO QPM PRN (Reason: insomnia) Rx Instructions: orally every 3 hours; amlodipine 10 mg tablet 10 mg PO DAILY fluticasone furoate-vilanterol [Breo Ellipta] 100-25 mcg/dose blister with device 1 inh inhalation DAILY tizanidine 4 mg capsule 4 mg PO Q8H zolpidem 10 mg tablet 10 mg PO .HS PRN (Reason: insomnia) sildenafil [Viagra] 100 mg tablet 100 mg PO DAILY PRN (Reason: erectile dysfunction) Rx Instructions: administer 30 minutes to 4 hours before activity Print Language: Persian Instructions: Leg Pain (ED) Referrals: SHAMIR MULLINS [Primary Care Provider, Unknown] - 1 week Discharge Date/Time: 03/24/25 17:54
== END 2025-03-24 17:54 | disposition home or self-care (01) ==
PROVIDERS: Emergency Provider Emergency Medicine; PCP Nurse Practitioner Family
DX: M79.604 Pain in right leg (principal); Z86.718 Personal history of other venous thrombosis and embolism
CPT/HCPCS: 93971; 99284